=== PATIENT | male | born 1940 | race Caucasian/White ===

== ENCOUNTER → 2016-08-24 | Outpatient (CLI) | payer MEDICARE, OTHER ==
[~2016-08-24] MED LIST: ALBUAER3 IN; ATOR20TA PO; CAR3125T PO; CLOP75TA28 PO; ENA2.5T PO; FURO20TA3 PO; POT20T PO; TAMS0.4C36 PO; WARF5TAB71 PO
== END | disposition home or self-care (01) ==
LOC: HDHVI->DVH 09:05
PROVIDERS: ATTEND Internal Medicine Cardiovascular Disease
DX: I34.2 Nonrheumatic mitral (valve) stenosis (principal); I35.0 Nonrheumatic aortic (valve) stenosis; I34.0 Nonrheumatic mitral (valve) insufficiency; I07.1 Rheumatic tricuspid insufficiency; I37.1 Nonrheumatic pulmonary valve insufficiency
CPT/HCPCS: 93306

== ENCOUNTER → 2016-09-08 | Outpatient (CLI) | payer MEDICARE ==
[~2016-09-08] VITALS: Ht 177.8 cm; Wt 63.5 kg
[~2016-09-08] MED LIST changes: +ADENOSINE IV STA; +GIVE UN DILUTED IV STA
== END | disposition home or self-care (01) ==
LOC: HDHVI->DVH 09:38
PROVIDERS: ATTEND Internal Medicine Cardiovascular Disease
DX: Z01.810 Encounter for preprocedural cardiovascular examination (principal); R06.02 Shortness of breath; I25.2 Old myocardial infarction; I25.10 Atherosclerotic heart disease of native coronary artery without angina pectoris; I10 Essential (primary) hypertension; Z95.1 Presence of aortocoronary bypass graft
CPT/HCPCS: 78452; 93005; 96374; 96375; A9500; J0153

== ENCOUNTER → 2016-09-14 | Outpatient (CLI) | payer MEDICARE ==
[~2016-09-14] MED LIST changes: -ADENOSINE IV STA; -GIVE UN DILUTED IV STA
== END | disposition home or self-care (01) ==
LOC: CHF HDHVI 10:01
PROVIDERS: ATTEND Internal Medicine Cardiovascular Disease
DX: T46.0X6D Underdosing of cardiac-stimulant glycosides and drugs of similar action, subsequent encounter (principal)
CPT/HCPCS: 36415; 71020; 80162

== ENCOUNTER → 2016-09-28 | Outpatient (CLI) | payer MEDICARE ==
[2016-09-28 13:30] VITALS: BP 166/79
[2016-09-28 13:58] VITALS: BP 164/80
[2016-09-28 16:47] LABS: Albumin 3.3 g/dL (3.4-5.0); BUN/Creatinine Ratio 29.3; Bilirubin, Total 0.8 mg/dL (0.2-1.0); Calcium 8.8 mg/dL (8.5-10.1); Potassium 4.3 mmol/L (3.5-5.1); Total Protein 7.7 g/dL (6.4-8.2)
== END | disposition home or self-care (01) ==
LOC: Rad HDHVI 11:55
PROVIDERS: ATTEND Internal Medicine Cardiovascular Disease
DX: I10 Essential (primary) hypertension (principal)
CPT/HCPCS: 36415; 71020; 80053; G0463

== ENCOUNTER → 2017-07-19 | Outpatient (CLI) | payer MEDICARE | END | disposition home or self-care (01) | LOC: Rad HDHVI 11:14 | PROVIDERS: ATTEND Internal Medicine Cardiovascular Disease | DX: R91.8 Other nonspecific abnormal finding of lung field (principal); Z98.890 Other specified postprocedural states | CPT/HCPCS: 71046 ==

== ENCOUNTER → 2018-01-09 | Outpatient (CLI) | payer MEDICARE ==
[~2018-01-09] MED LIST changes: +MILRINONE 20MG/100ML 100 ML IV ONE; +MILRINONE 20MG/100ML 100 ML IV SCH
[2018-01-09 12:30] VITALS: BP 116/53
[2018-01-09 12:45] VITALS: BP 121/59
[2018-01-09 13:00] VITALS: BP 125/60
[2018-01-09 13:15] VITALS: BP 131/64
[2018-01-09 13:45] VITALS: BP 146/64
[2018-01-09 16:35] VITALS: BP 153/75
== END | disposition home or self-care (01) ==
LOC: CHF HDHVI 11:56
PROVIDERS: ATTEND Internal Medicine Cardiovascular Disease
DX: I11.0 Hypertensive heart disease with heart failure (principal); I50.23 Acute on chronic systolic (congestive) heart failure; I25.10 Atherosclerotic heart disease of native coronary artery without angina pectoris; E11.9 Type 2 diabetes mellitus without complications; J44.9 Chronic obstructive pulmonary disease, unspecified; I25.2 Old myocardial infarction; I48.91 Unspecified atrial fibrillation; Z79.899 Other long term (current) drug therapy; Z79.01 Long term (current) use of anticoagulants; Z87.891 Personal history of nicotine dependence; Z95.1 Presence of aortocoronary bypass graft
CPT/HCPCS: 96365; 96366; G0463; J2260

== ENCOUNTER → 2018-01-15 | Outpatient (CLI) | payer MEDICARE ==
[2018-01-15] VITALS (8 sets, daily range): BP systolic 122–167; BP diastolic 52–78
[~2018-01-15] MED LIST changes: -MILRINONE 20MG/100ML 100 ML IV SCH
[2018-01-15 12:22] LABS: Basophils # (auto) 0.1 uL; Basophils % (auto) 0.7 % (0.0-2.0); Eosinophils # (auto) 0.1 uL; Eosinophils % (auto) 0.8 % (0.0-7.0); Hematocrit 36.1 % (41.0-53.0); Lymphocytes % (auto) 12.7 % (10.0-50.0); Mean Corpuscular Hemoglobin 30.7 pg (28.0-32.0); Mean Corpuscular Hgb Conc. 33.3 g/dL (32.0-36.0); Mean Corpuscular Volume 92.3 fL (80.0-100.0); Monocytes # (auto) 0.5 uL; Neutrophils # (auto) 6.3 uL; Neutrophils % (auto) 79.8 % (37.0-80.0); Nucleated Red Blood Cells % 0.1 %; Platelet Count (auto) 289 10^3/uL (140-450); Red Blood Cells 3.91 10^6/uL (4.5-5.90); Red Cell Distribution Width 15.3 % (11.8-14.3)
[2018-01-15 12:33] LABS: BUN/Creatinine Ratio 23.6; Calcium 8.1 mg/dL (8.5-10.1)
== END | disposition home or self-care (01) ==
LOC: CHF HDHVI 08:32
PROVIDERS: ATTEND Internal Medicine Cardiovascular Disease
DX: I11.0 Hypertensive heart disease with heart failure (principal); I50.23 Acute on chronic systolic (congestive) heart failure; D64.9 Anemia, unspecified; I25.10 Atherosclerotic heart disease of native coronary artery without angina pectoris; I25.2 Old myocardial infarction; I48.91 Unspecified atrial fibrillation; N40.0 Benign prostatic hyperplasia without lower urinary tract symptoms; E11.9 Type 2 diabetes mellitus without complications; Z79.01 Long term (current) use of anticoagulants; Z79.899 Other long term (current) drug therapy; Z87.891 Personal history of nicotine dependence; Z95.1 Presence of aortocoronary bypass graft; Z95.810 Presence of automatic (implantable) cardiac defibrillator
CPT/HCPCS: 36415; 80048; 83880; 85025; 96365; 96366; G0463; J2260

== ENCOUNTER → 2018-01-22 | Outpatient (CLI) | payer MEDICARE ==
[2018-01-22] VITALS (8 sets, daily range): BP systolic 102–148; BP diastolic 40–72
[~2018-01-22] MED LIST changes: +MILRINONE 20MG/100ML 100 ML IV SCH
== END | disposition home or self-care (01) ==
LOC: CHF HDHVI 08:13
PROVIDERS: ATTEND Internal Medicine Cardiovascular Disease
DX: I11.0 Hypertensive heart disease with heart failure (principal); I50.23 Acute on chronic systolic (congestive) heart failure; R06.02 Shortness of breath; E11.9 Type 2 diabetes mellitus without complications; I48.91 Unspecified atrial fibrillation; I25.2 Old myocardial infarction; J44.9 Chronic obstructive pulmonary disease, unspecified; I25.10 Atherosclerotic heart disease of native coronary artery without angina pectoris; Z79.01 Long term (current) use of anticoagulants; Z79.899 Other long term (current) drug therapy; Z87.891 Personal history of nicotine dependence; Z95.1 Presence of aortocoronary bypass graft
CPT/HCPCS: 96365; 96366; G0463; J2260; J1642

== ENCOUNTER → 2018-01-26 | Outpatient (CLI) | payer MEDICARE ==
[2018-01-26] VITALS (8 sets, daily range): BP systolic 135–160; BP diastolic 64–77
[~2018-01-26] VITALS: Ht 30.5 cm; Wt 61.6 kg
[~2018-01-26] MED LIST changes: -MILRINONE 20MG/100ML 100 ML IV SCH
[2018-01-26 11:57] LABS: Basophils # (auto) 0 uL; Basophils % (auto) 0.8 % (0.0-2.0); Eosinophils # (auto) 0.1 uL; Hematocrit 34.9 % (41.0-53.0); Hemoglobin 11.6 g/dL (13.5-17.5); Mean Corpuscular Hemoglobin 30.4 pg (28.0-32.0); Mean Corpuscular Hgb Conc. 33.2 g/dL (32.0-36.0); Mean Corpuscular Volume 91.7 fL (80.0-100.0); Monocytes # (auto) 0.5 uL; Monocytes % (auto) 8.3 % (0.0-12.0); Neutrophils # (auto) 4.3 uL; Neutrophils % (auto) 71.9 % (37.0-80.0); Nucleated Red Blood Cells % 0.3 %; Platelet Count (auto) 244 10^3/uL (140-450); Red Blood Cells 3.81 10^6/uL (4.5-5.90); Red Cell Distribution Width 15.3 % (11.8-14.3)
[2018-01-26 12:08] LABS: Calcium 8.3 mg/dL (8.5-10.1); Potassium 3.8 mmol/L (3.5-5.1)
== END | disposition home or self-care (01) ==
LOC: CHF HDHVI 08:05
PROVIDERS: ATTEND Internal Medicine Cardiovascular Disease
DX: I11.0 Hypertensive heart disease with heart failure (principal); I50.23 Acute on chronic systolic (congestive) heart failure; D64.9 Anemia, unspecified; J44.9 Chronic obstructive pulmonary disease, unspecified; I25.10 Atherosclerotic heart disease of native coronary artery without angina pectoris; I25.2 Old myocardial infarction; E11.9 Type 2 diabetes mellitus without complications; I48.91 Unspecified atrial fibrillation; Z87.891 Personal history of nicotine dependence; Z79.01 Long term (current) use of anticoagulants; Z79.899 Other long term (current) drug therapy
CPT/HCPCS: 36415; 80048; 83880; 85025; 96365; 96366; G0463; J2260

== ENCOUNTER → 2018-01-29 | Outpatient (CLI) | payer MEDICARE ==
[2018-01-29] VITALS (10 sets, daily range): BP systolic 117–166; BP diastolic 48–82
[~2018-01-29] MED LIST changes: +CARVEDILOL 3.125 MG TAB ONE; +CARVEDILOL 3.125 MG TAB PO ONE; +MILRINONE 20MG/100ML 100 ML IV SCH
== END | disposition home or self-care (01) ==
LOC: CHF HDHVI 08:24
PROVIDERS: ATTEND Internal Medicine Cardiovascular Disease
DX: I11.0 Hypertensive heart disease with heart failure (principal); I50.23 Acute on chronic systolic (congestive) heart failure; I25.10 Atherosclerotic heart disease of native coronary artery without angina pectoris; E11.9 Type 2 diabetes mellitus without complications; J44.9 Chronic obstructive pulmonary disease, unspecified; I25.2 Old myocardial infarction; I48.91 Unspecified atrial fibrillation; Z79.899 Other long term (current) drug therapy; Z87.891 Personal history of nicotine dependence; Z79.01 Long term (current) use of anticoagulants; Z95.1 Presence of aortocoronary bypass graft
CPT/HCPCS: 96365; 96366; G0463; J2260

== ENCOUNTER → 2018-02-02 | Outpatient (CLI) | payer MEDICARE ==
[~2018-02-02] VITALS: Ht 30.5 cm; Wt 0.5 kg
[2018-02-02] VITALS (9 sets, daily range): BP systolic 124–151; BP diastolic 56–87
[~2018-02-02] MED LIST changes: -CARVEDILOL 3.125 MG TAB ONE; -CARVEDILOL 3.125 MG TAB PO ONE
[2018-02-02 12:18] LABS: Basophils # (auto) 0.1 uL; Basophils % (auto) 1.1 % (0.0-2.0); Eosinophils # (auto) 0.2 uL; Eosinophils % (auto) 4.2 % (0.0-7.0); Hematocrit 36.7 % (41.0-53.0); Lymphocytes % (auto) 16.6 % (10.0-50.0); Mean Corpuscular Hemoglobin 29.8 pg (28.0-32.0); Mean Corpuscular Hgb Conc. 32.6 g/dL (32.0-36.0); Mean Corpuscular Volume 91.6 fL (80.0-100.0); Monocytes # (auto) 0.5 uL; Monocytes % (auto) 9.3 % (0.0-12.0); Neutrophils % (auto) 68.8 % (37.0-80.0); Nucleated Red Blood Cells % 0.3 %; Platelet Count (auto) 222 10^3/uL (140-450); Red Blood Cells 4.01 10^6/uL (4.5-5.90); Red Cell Distribution Width 15.4 % (11.8-14.3); White Blood Cell 5.8 10^3/uL (4.4-10.8)
== END | disposition home or self-care (01) ==
LOC: CHF HDHVI 08:13
PROVIDERS: ATTEND Internal Medicine Cardiovascular Disease
DX: I11.0 Hypertensive heart disease with heart failure (principal); I50.23 Acute on chronic systolic (congestive) heart failure; D64.9 Anemia, unspecified; R94.4 Abnormal results of kidney function studies; E87.6 Hypokalemia; E11.9 Type 2 diabetes mellitus without complications; I25.10 Atherosclerotic heart disease of native coronary artery without angina pectoris; I48.91 Unspecified atrial fibrillation; J44.9 Chronic obstructive pulmonary disease, unspecified; I25.2 Old myocardial infarction; Z79.01 Long term (current) use of anticoagulants; Z87.891 Personal history of nicotine dependence; Z79.899 Other long term (current) drug therapy; Z95.1 Presence of aortocoronary bypass graft
CPT/HCPCS: 36415; 82565; 83880; 84132; 84520; 85025; 96365; 96366; G0463; J2260

== ENCOUNTER → 2018-02-05 | Outpatient (CLI) | payer MEDICARE ==
[2018-02-05] VITALS (11 sets, daily range): BP systolic 101–158; BP diastolic 50–79
[~2018-02-05] MED LIST changes: +CYANOCOBALAMIN (B-12) 1000 MCG/1 ML VIAL IM ONE; +CYANOCOBALAMIN (B-12) 1000 MCG/1 ML VIAL ONE
[2018-02-05 12:44] LABS: Basophils # (auto) 0 uL; Basophils % (auto) 0.8 % (0.0-2.0); Eosinophils # (auto) 0.1 uL; Eosinophils % (auto) 1.8 % (0.0-7.0); Hematocrit 32.8 % (41.0-53.0); Lymphocytes # (auto) 0.9 uL; Lymphocytes % (auto) 14.5 % (10.0-50.0); Mean Corpuscular Hemoglobin 30.7 pg (28.0-32.0); Mean Corpuscular Hgb Conc. 33.5 g/dL (32.0-36.0); Mean Corpuscular Volume 91.4 fL (80.0-100.0); Monocytes # (auto) 0.5 uL; Monocytes % (auto) 8.4 % (0.0-12.0); Neutrophils # (auto) 4.4 uL; Neutrophils % (auto) 74.5 % (37.0-80.0); Nucleated Red Blood Cells % 0.2 %; Platelet Count (auto) 244 10^3/uL (140-450); Red Blood Cells 3.59 10^6/uL (4.5-5.90); Red Cell Distribution Width 15.2 % (11.8-14.3); White Blood Cell 5.9 10^3/uL (4.4-10.8)
[2018-02-05 13:33] LABS: BUN/Creatinine Ratio 23.2; Calcium 8.4 mg/dL (8.5-10.1); Potassium 3.9 mmol/L (3.5-5.1)
== END | disposition home or self-care (01) ==
LOC: Rad HDHVI 08:06
PROVIDERS: ATTEND Internal Medicine Cardiovascular Disease
DX: I11.0 Hypertensive heart disease with heart failure (principal); I50.23 Acute on chronic systolic (congestive) heart failure; D51.9 Vitamin B12 deficiency anemia, unspecified; I70.0 Atherosclerosis of aorta; I07.1 Rheumatic tricuspid insufficiency; I34.0 Nonrheumatic mitral (valve) insufficiency; I25.10 Atherosclerotic heart disease of native coronary artery without angina pectoris; J44.9 Chronic obstructive pulmonary disease, unspecified; I25.2 Old myocardial infarction; I48.91 Unspecified atrial fibrillation; Z79.01 Long term (current) use of anticoagulants; Z87.891 Personal history of nicotine dependence; Z95.1 Presence of aortocoronary bypass graft
CPT/HCPCS: 36415; 80048; 83880; 85025; 93306; 96365; 96366; 96372; G0463; J2260; J3420

== ENCOUNTER → 2018-02-09 | Outpatient (CLI) | payer MEDICARE ==
[2018-02-09] VITALS (10 sets, daily range): BP systolic 116–150; BP diastolic 53–67
[~2018-02-09] MED LIST changes: -CYANOCOBALAMIN (B-12) 1000 MCG/1 ML VIAL IM ONE; -CYANOCOBALAMIN (B-12) 1000 MCG/1 ML VIAL ONE
[2018-02-09 13:40] LABS: Potassium 4.1 mmol/L (3.5-5.1)
== END | disposition home or self-care (01) ==
LOC: CHF HDHVI 07:57
PROVIDERS: ATTEND Internal Medicine Cardiovascular Disease
DX: I11.0 Hypertensive heart disease with heart failure (principal); I50.23 Acute on chronic systolic (congestive) heart failure; R53.83 Other fatigue; R94.4 Abnormal results of kidney function studies; E87.5 Hyperkalemia; E11.9 Type 2 diabetes mellitus without complications; I25.10 Atherosclerotic heart disease of native coronary artery without angina pectoris; I25.2 Old myocardial infarction; I48.91 Unspecified atrial fibrillation; J44.9 Chronic obstructive pulmonary disease, unspecified; Z79.01 Long term (current) use of anticoagulants; Z79.899 Other long term (current) drug therapy; Z87.891 Personal history of nicotine dependence; Z95.1 Presence of aortocoronary bypass graft
CPT/HCPCS: 36415; 82565; 83880; 84132; 84520; 96365; 96366; G0463; J2260

== ENCOUNTER → 2018-02-13 | Outpatient (CLI) | payer MEDICARE ==
[2018-02-13] VITALS (11 sets, daily range): BP systolic 135–150; BP diastolic 60–70
[~2018-02-13] MED LIST changes: +BACITRACIN TOP OINT 1 UD PKG TOP ONE
[2018-02-13 12:32] LABS: Basophils # (auto) 0.1 uL; Basophils % (auto) 0.9 % (0.0-2.0); Eosinophils # (auto) 0.2 uL; Eosinophils % (auto) 2.8 % (0.0-7.0); Hematocrit 33.7 % (41.0-53.0); Hemoglobin 11.1 g/dL (13.5-17.5); Lymphocytes # (auto) 0.9 uL; Lymphocytes % (auto) 16.2 % (10.0-50.0); Mean Corpuscular Hgb Conc. 32.8 g/dL (32.0-36.0); Mean Corpuscular Volume 91.5 fL (80.0-100.0); Monocytes # (auto) 0.4 uL; Monocytes % (auto) 7.8 % (0.0-12.0); Neutrophils # (auto) 4.1 uL; Neutrophils % (auto) 72.3 % (37.0-80.0); Nucleated Red Blood Cells % 0.3 %; Platelet Count (auto) 241 10^3/uL (140-450); Red Blood Cells 3.68 10^6/uL (4.5-5.90); Red Cell Distribution Width 15.5 % (11.8-14.3); White Blood Cell 5.7 10^3/uL (4.4-10.8)
[2018-02-13 12:43] LABS: BUN/Creatinine Ratio 21.8; Calcium 8.3 mg/dL (8.5-10.1); Magnesium 2.4 mg/dL (1.6-2.6)
== END | disposition home or self-care (01) ==
LOC: CHF HDHVI 08:15
PROVIDERS: ATTEND Internal Medicine Cardiovascular Disease
DX: I11.0 Hypertensive heart disease with heart failure (principal); I50.23 Acute on chronic systolic (congestive) heart failure; I25.10 Atherosclerotic heart disease of native coronary artery without angina pectoris; S51.012A Laceration without foreign body of left elbow, initial encounter; E83.40 Disorders of magnesium metabolism, unspecified; J44.9 Chronic obstructive pulmonary disease, unspecified; I25.2 Old myocardial infarction; E11.9 Type 2 diabetes mellitus without complications; I48.91 Unspecified atrial fibrillation; Z79.01 Long term (current) use of anticoagulants; Z79.899 Other long term (current) drug therapy; Z87.891 Personal history of nicotine dependence; Z95.1 Presence of aortocoronary bypass graft; Z95.810 Presence of automatic (implantable) cardiac defibrillator; X58.XXXA Exposure to other specified factors, initial encounter; Y93.89 Activity, other specified
CPT/HCPCS: 36415; 80048; 83735; 83880; 85025; 96365; 96366; G0463; J2260

== ENCOUNTER → 2018-02-20 | Outpatient (CLI) | payer MEDICARE ==
[2018-02-20] VITALS (11 sets, daily range): BP systolic 112–151; BP diastolic 51–76
[~2018-02-20] MED LIST changes: -BACITRACIN TOP OINT 1 UD PKG TOP ONE
== END | disposition home or self-care (01) ==
LOC: CHF HDHVI 08:11
PROVIDERS: ATTEND Internal Medicine Cardiovascular Disease
DX: I11.0 Hypertensive heart disease with heart failure (principal); I50.23 Acute on chronic systolic (congestive) heart failure; I48.91 Unspecified atrial fibrillation; E11.9 Type 2 diabetes mellitus without complications; I25.10 Atherosclerotic heart disease of native coronary artery without angina pectoris; J44.9 Chronic obstructive pulmonary disease, unspecified; I25.2 Old myocardial infarction; Z79.01 Long term (current) use of anticoagulants; Z79.899 Other long term (current) drug therapy; Z87.891 Personal history of nicotine dependence; Z95.1 Presence of aortocoronary bypass graft; Z95.810 Presence of automatic (implantable) cardiac defibrillator
CPT/HCPCS: 96365; 96366; G0463; J2260

== ENCOUNTER → 2018-02-23 | Outpatient (CLI) | payer MEDICARE ==
[2018-02-23] VITALS (7 sets, daily range): BP systolic 101–141; BP diastolic 49–68
== END | disposition home or self-care (01) ==
LOC: CHF HDHVI 08:05
PROVIDERS: ATTEND Internal Medicine Cardiovascular Disease
DX: I11.0 Hypertensive heart disease with heart failure (principal); I50.23 Acute on chronic systolic (congestive) heart failure; I25.10 Atherosclerotic heart disease of native coronary artery without angina pectoris; J44.9 Chronic obstructive pulmonary disease, unspecified; I25.2 Old myocardial infarction; E11.9 Type 2 diabetes mellitus without complications; I48.91 Unspecified atrial fibrillation; D51.9 Vitamin B12 deficiency anemia, unspecified
CPT/HCPCS: 96365; 96366; G0463; J2260

== ENCOUNTER → 2018-02-26 | Outpatient (CLI) | payer MEDICARE ==
[2018-02-23 12:00] VITALS: BP 140/60
[2018-02-26] VITALS (10 sets, daily range): BP systolic 103–137; BP diastolic 42–68
== END | disposition home or self-care (01) ==
LOC: CHF HDHVI 07:53
PROVIDERS: ATTEND Internal Medicine Cardiovascular Disease
DX: I11.0 Hypertensive heart disease with heart failure (principal); I50.23 Acute on chronic systolic (congestive) heart failure; I25.2 Old myocardial infarction; I48.91 Unspecified atrial fibrillation; D51.9 Vitamin B12 deficiency anemia, unspecified
CPT/HCPCS: 96365; 96366; G0463; J2260

== ENCOUNTER → 2018-03-02 | Outpatient (CLI) | payer MEDICARE ==
[2018-03-02] VITALS (11 sets, daily range): BP systolic 124–141; BP diastolic 51–69
[~2018-03-02] VITALS: Ht 30.5 cm; Wt 62.7 kg
== END | disposition home or self-care (01) ==
LOC: CHF HDHVI 07:54
PROVIDERS: ATTEND Internal Medicine Cardiovascular Disease
DX: I11.0 Hypertensive heart disease with heart failure (principal); I50.23 Acute on chronic systolic (congestive) heart failure; I48.91 Unspecified atrial fibrillation; D51.9 Vitamin B12 deficiency anemia, unspecified; I25.10 Atherosclerotic heart disease of native coronary artery without angina pectoris; I25.2 Old myocardial infarction; J44.9 Chronic obstructive pulmonary disease, unspecified; Z95.1 Presence of aortocoronary bypass graft; E11.9 Type 2 diabetes mellitus without complications; Z95.810 Presence of automatic (implantable) cardiac defibrillator; Z79.01 Long term (current) use of anticoagulants; Z79.899 Other long term (current) drug therapy; Z87.891 Personal history of nicotine dependence
CPT/HCPCS: 96365; 96366; G0463; J2260

== ENCOUNTER → 2018-03-05 | Outpatient (CLI) | payer MEDICARE ==
[2018-03-05] VITALS (10 sets, daily range): BP systolic 131–156; BP diastolic 64–72
== END | disposition home or self-care (01) ==
LOC: CHF HDHVI 08:14
PROVIDERS: ATTEND Internal Medicine Cardiovascular Disease
DX: I11.0 Hypertensive heart disease with heart failure (principal); I50.23 Acute on chronic systolic (congestive) heart failure; I25.10 Atherosclerotic heart disease of native coronary artery without angina pectoris; J44.9 Chronic obstructive pulmonary disease, unspecified; I25.2 Old myocardial infarction; Z87.891 Personal history of nicotine dependence; E11.9 Type 2 diabetes mellitus without complications; I48.91 Unspecified atrial fibrillation; D51.9 Vitamin B12 deficiency anemia, unspecified; E87.5 Hyperkalemia; R53.83 Other fatigue; N39.0 Urinary tract infection, site not specified
CPT/HCPCS: 96365; 96366; G0463; J2260

== ENCOUNTER → 2018-03-09 | Outpatient (CLI) | payer MEDICARE ==
[2018-03-09] VITALS (12 sets, daily range): BP systolic 120–143; BP diastolic 50–68
== END | disposition home or self-care (01) ==
LOC: CHF HDHVI 07:59
PROVIDERS: ATTEND Internal Medicine Cardiovascular Disease
DX: I11.0 Hypertensive heart disease with heart failure (principal); I50.23 Acute on chronic systolic (congestive) heart failure; I25.10 Atherosclerotic heart disease of native coronary artery without angina pectoris; J44.9 Chronic obstructive pulmonary disease, unspecified; I25.2 Old myocardial infarction; E11.9 Type 2 diabetes mellitus without complications; I48.91 Unspecified atrial fibrillation; Z87.891 Personal history of nicotine dependence; Z79.01 Long term (current) use of anticoagulants; Z79.899 Other long term (current) drug therapy; Z95.1 Presence of aortocoronary bypass graft; Z95.810 Presence of automatic (implantable) cardiac defibrillator
CPT/HCPCS: 96365; 96366; G0463; J2260

== ENCOUNTER → 2018-03-12 | Outpatient (CLI) | payer MEDICARE ==
[2018-03-12] VITALS (11 sets, daily range): BP systolic 96–141; BP diastolic 42–70
[~2018-03-12] MED LIST changes: -MILRINONE 20MG/100ML 100 ML IV SCH
[2018-03-12 13:12] LABS: Basophils # (auto) 0.1 uL; Basophils % (auto) 1.5 % (0.0-2.0); Eosinophils # (auto) 0.2 uL; Eosinophils % (auto) 4.7 % (0.0-7.0); Hematocrit 34.9 % (41.0-53.0); Hemoglobin 11.5 g/dL (13.5-17.5); Lymphocytes # (auto) 0.9 uL; Lymphocytes % (auto) 17.4 % (10.0-50.0); Mean Corpuscular Hemoglobin 30.6 pg (28.0-32.0); Mean Corpuscular Hgb Conc. 32.9 g/dL (32.0-36.0); Mean Corpuscular Volume 93.1 fL (80.0-100.0); Monocytes # (auto) 0.4 uL; Monocytes % (auto) 7.4 % (0.0-12.0); Neutrophils # (auto) 3.5 uL; Nucleated Red Blood Cells % 0.1 %; Platelet Count (auto) 307 10^3/uL (140-450); Red Blood Cells 3.75 10^6/uL (4.5-5.90); Red Cell Distribution Width 15.4 % (11.8-14.3); White Blood Cell 5.1 10^3/uL (4.4-10.8)
[2018-03-12 13:59] LABS: Albumin 3.2 g/dL (3.4-5.0); BUN/Creatinine Ratio 19.8; Bilirubin, Total 1.1 mg/dL (0.2-1.0); Calcium 8.5 mg/dL (8.5-10.1); Magnesium 2.6 mg/dL (1.6-2.6); Potassium 4.1 mmol/L (3.5-5.1); Total Protein 7.7 g/dL (6.4-8.2)
[2018-03-12] MEDS: MILRINONE 20MG/100ML 100 ML IV SCH ×2 (14:16→17:50)
== END | disposition home or self-care (01) ==
LOC: CHF HDHVI 08:11
PROVIDERS: ATTEND Internal Medicine Cardiovascular Disease
DX: I11.0 Hypertensive heart disease with heart failure (principal); I50.23 Acute on chronic systolic (congestive) heart failure; E11.9 Type 2 diabetes mellitus without complications; J44.9 Chronic obstructive pulmonary disease, unspecified; E83.110 Hereditary hemochromatosis; I25.10 Atherosclerotic heart disease of native coronary artery without angina pectoris; I25.2 Old myocardial infarction; I48.91 Unspecified atrial fibrillation; Z79.01 Long term (current) use of anticoagulants; Z79.899 Other long term (current) drug therapy; Z87.891 Personal history of nicotine dependence; Z95.1 Presence of aortocoronary bypass graft; Z95.810 Presence of automatic (implantable) cardiac defibrillator
CPT/HCPCS: 36415; 80053; 80061; 82306; 82607; 83036; 83735; 83880; 84443; 85025; 96365; 96366; G0463; J2260

== ENCOUNTER → 2018-03-16 | Outpatient (CLI) | payer MEDICARE ==
[2018-03-16] VITALS (7 sets, daily range): BP systolic 105–161; BP diastolic 48–79
[~2018-03-16] MED LIST changes: +CYANOCOBALAMIN (B-12) 1000 MCG/1 ML VIAL IM ONE; +CYANOCOBALAMIN (B-12) 1000 MCG/1 ML VIAL ONE; +FUROSEMIDE 40 MG/4 ML VIAL IV ONE; +FUROSEMIDE 40 MG/4 ML VIAL ONE; +MILRINONE 20MG/100ML 100 ML IV SCH; +POTASSIUM CHL 10 Meq TABLET PO ONE
== END | disposition home or self-care (01) ==
LOC: CHF HDHVI 07:55
PROVIDERS: ATTEND Internal Medicine Cardiovascular Disease
DX: I11.0 Hypertensive heart disease with heart failure (principal); I50.23 Acute on chronic systolic (congestive) heart failure; I25.10 Atherosclerotic heart disease of native coronary artery without angina pectoris; J44.9 Chronic obstructive pulmonary disease, unspecified; R06.00 Dyspnea, unspecified; E11.9 Type 2 diabetes mellitus without complications; I25.2 Old myocardial infarction; N39.0 Urinary tract infection, site not specified; I48.91 Unspecified atrial fibrillation; Z95.1 Presence of aortocoronary bypass graft; Z87.891 Personal history of nicotine dependence
CPT/HCPCS: 96365; 96366; 96372; 96375; G0463; J1940; J2260; J3420

== ENCOUNTER → 2018-03-19 | Outpatient (CLI) | payer MEDICARE ==
[2018-03-19] VITALS (8 sets, daily range): BP systolic 120–153; BP diastolic 50–70
[~2018-03-19] MED LIST changes: -CYANOCOBALAMIN (B-12) 1000 MCG/1 ML VIAL IM ONE; -CYANOCOBALAMIN (B-12) 1000 MCG/1 ML VIAL ONE; -FUROSEMIDE 40 MG/4 ML VIAL IV ONE; -FUROSEMIDE 40 MG/4 ML VIAL ONE; -POTASSIUM CHL 10 Meq TABLET PO ONE
[2018-03-19 12:05] LABS: Basophils # (auto) 0.1 uL; Basophils % (auto) 1.8 % (0.0-2.0); Eosinophils # (auto) 0.3 uL; Hematocrit 37.3 % (41.0-53.0); Hemoglobin 11.9 g/dL (13.5-17.5); Lymphocytes % (auto) 18.6 % (10.0-50.0); Mean Corpuscular Hemoglobin 29.6 pg (28.0-32.0); Mean Corpuscular Hgb Conc. 31.9 g/dL (32.0-36.0); Mean Corpuscular Volume 92.8 fL (80.0-100.0); Monocytes # (auto) 0.4 uL; Monocytes % (auto) 6.5 % (0.0-12.0); Neutrophils # (auto) 3.7 uL; Neutrophils % (auto) 67.1 % (37.0-80.0); Nucleated Red Blood Cells % 0.1 %; Platelet Count (auto) 292 10^3/uL (140-450); Red Blood Cells 4.02 10^6/uL (4.5-5.90); Red Cell Distribution Width 15.6 % (11.8-14.3); White Blood Cell 5.5 10^3/uL (4.4-10.8)
== END | disposition home or self-care (01) ==
LOC: CHF HDHVI 08:48
PROVIDERS: ATTEND Internal Medicine Cardiovascular Disease
DX: I25.10 Atherosclerotic heart disease of native coronary artery without angina pectoris (principal); I11.0 Hypertensive heart disease with heart failure; I50.23 Acute on chronic systolic (congestive) heart failure; J44.9 Chronic obstructive pulmonary disease, unspecified; R94.4 Abnormal results of kidney function studies; E87.6 Hypokalemia; D51.9 Vitamin B12 deficiency anemia, unspecified; I25.2 Old myocardial infarction; I48.91 Unspecified atrial fibrillation; E11.9 Type 2 diabetes mellitus without complications; Z79.01 Long term (current) use of anticoagulants; Z79.899 Other long term (current) drug therapy; Z87.891 Personal history of nicotine dependence; Z95.810 Presence of automatic (implantable) cardiac defibrillator; Z95.1 Presence of aortocoronary bypass graft
CPT/HCPCS: 36415; 82565; 83880; 84132; 84520; 85025; 96365; 96366; G0463; J2260

== ENCOUNTER → 2018-03-23 | Outpatient (CLI) | payer MEDICARE ==
[~2018-03-23] VITALS: Ht 30.5 cm; Wt 0.5 kg
[2018-03-23] VITALS (12 sets, daily range): BP systolic 115–138; BP diastolic 48–67
== END | disposition home or self-care (01) ==
LOC: CHF HDHVI 08:29
PROVIDERS: ATTEND Internal Medicine Cardiovascular Disease
DX: I11.0 Hypertensive heart disease with heart failure (principal); I50.23 Acute on chronic systolic (congestive) heart failure; I25.10 Atherosclerotic heart disease of native coronary artery without angina pectoris; J44.9 Chronic obstructive pulmonary disease, unspecified; D64.9 Anemia, unspecified; I25.2 Old myocardial infarction; E11.9 Type 2 diabetes mellitus without complications; I48.91 Unspecified atrial fibrillation; N39.0 Urinary tract infection, site not specified; Z87.891 Personal history of nicotine dependence
CPT/HCPCS: 96365; 96366; G0463; J2260

== ENCOUNTER → 2018-03-26 | Outpatient (CLI) | payer MEDICARE ==
[~2018-03-26] MED LIST changes: -MILRINONE 20MG/100ML 100 ML IV SCH
[2018-03-26 12:30] VITALS: BP 135/72
[2018-03-26 12:46] LABS: Basophils # (auto) 0.1 uL; Basophils % (auto) 1.3 % (0.0-2.0); Eosinophils # (auto) 0.2 uL; Eosinophils % (auto) 3.4 % (0.0-7.0); Hematocrit 34.3 % (41.0-53.0); Hemoglobin 11.3 g/dL (13.5-17.5); Lymphocytes # (auto) 0.9 uL; Lymphocytes % (auto) 14.8 % (10.0-50.0); Mean Corpuscular Hgb Conc. 33.1 g/dL (32.0-36.0); Mean Corpuscular Volume 93.6 fL (80.0-100.0); Monocytes # (auto) 0.8 uL; Monocytes % (auto) 12.4 % (0.0-12.0); Neutrophils # (auto) 4.3 uL; Neutrophils % (auto) 68.1 % (37.0-80.0); Nucleated Red Blood Cells % 0.2 %; Platelet Count (auto) 226 10^3/uL (140-450); Red Blood Cells 3.66 10^6/uL (4.5-5.90); Red Cell Distribution Width 15.3 % (11.8-14.3); White Blood Cell 6.3 10^3/uL (4.4-10.8)
[2018-03-26] MEDS: MILRINONE 20MG/100ML 100 ML IV SCH ×2 (13:55→16:43)
[2018-03-26 14:06] LABS: BUN/Creatinine Ratio 21.3; Calcium 7.9 mg/dL (8.5-10.1)
== END | disposition home or self-care (01) ==
LOC: CHF HDHVI 08:11
PROVIDERS: ATTEND Internal Medicine Cardiovascular Disease
DX: I11.0 Hypertensive heart disease with heart failure (principal); I50.23 Acute on chronic systolic (congestive) heart failure; D64.9 Anemia, unspecified; I25.10 Atherosclerotic heart disease of native coronary artery without angina pectoris; J44.9 Chronic obstructive pulmonary disease, unspecified; I25.2 Old myocardial infarction; I48.91 Unspecified atrial fibrillation; N39.0 Urinary tract infection, site not specified; E11.9 Type 2 diabetes mellitus without complications; Z87.891 Personal history of nicotine dependence; Z79.899 Other long term (current) drug therapy; Z95.810 Presence of automatic (implantable) cardiac defibrillator
CPT/HCPCS: 36415; 80048; 83880; 85025; 96365; 96366; G0463; J2260

== ENCOUNTER → 2018-03-30 | Outpatient (CLI) | payer MEDICARE ==
[2018-03-30] VITALS (9 sets, daily range): BP systolic 98–143; BP diastolic 51–66
[~2018-03-30] MED LIST changes: +MILRINONE 20MG/100ML 100 ML IV SCH
[2018-03-30 12:32] LABS: Potassium 4.2 mmol/L (3.5-5.1)
== END | disposition home or self-care (01) ==
LOC: CHF HDHVI 07:55
PROVIDERS: ATTEND Internal Medicine Cardiovascular Disease
DX: I50.9 Heart failure, unspecified (principal); I11.0 Hypertensive heart disease with heart failure; I50.23 Acute on chronic systolic (congestive) heart failure; D64.9 Anemia, unspecified; R94.4 Abnormal results of kidney function studies; E87.6 Hypokalemia; J44.9 Chronic obstructive pulmonary disease, unspecified; E11.9 Type 2 diabetes mellitus without complications; I25.2 Old myocardial infarction; Z87.891 Personal history of nicotine dependence; Z79.01 Long term (current) use of anticoagulants; Z95.810 Presence of automatic (implantable) cardiac defibrillator; Z95.1 Presence of aortocoronary bypass graft; Z79.899 Other long term (current) drug therapy
CPT/HCPCS: 36415; 82565; 83880; 84132; 84520; 96365; 96366; G0463; J2260

== ENCOUNTER → 2018-04-02 | Outpatient (CLI) | payer MEDICARE ==
[2018-04-02] VITALS (8 sets, daily range): BP systolic 124–133; BP diastolic 41–65
[~2018-04-02] VITALS: Ht 30.5 cm; Wt 64.9 kg
[~2018-04-02] MED LIST changes: -MILRINONE 20MG/100ML 100 ML IV SCH
[2018-04-02] MEDS: MILRINONE 20MG/100ML 100 ML IV SCH ×2 (15:11→17:41)
== END | disposition home or self-care (01) ==
LOC: CHF HDHVI 07:57
PROVIDERS: ATTEND Internal Medicine Cardiovascular Disease
DX: I50.9 Heart failure, unspecified (principal); I11.0 Hypertensive heart disease with heart failure; I50.23 Acute on chronic systolic (congestive) heart failure; D64.9 Anemia, unspecified; I48.91 Unspecified atrial fibrillation; J44.9 Chronic obstructive pulmonary disease, unspecified; E11.9 Type 2 diabetes mellitus without complications; Z79.01 Long term (current) use of anticoagulants; Z79.899 Other long term (current) drug therapy; Z95.810 Presence of automatic (implantable) cardiac defibrillator; Z95.1 Presence of aortocoronary bypass graft
CPT/HCPCS: 83880; 96365; 96366; G0463; J2260

== ENCOUNTER → 2018-04-06 | Outpatient (CLI) | payer MEDICARE ==
[2018-04-06] VITALS (8 sets, daily range): BP systolic 121–141; BP diastolic 57–76
[~2018-04-06] VITALS: Ht 30.5 cm; Wt 65.9 kg
[~2018-04-06] MED LIST changes: +MILRINONE 20MG/100ML 100 ML IV SCH
== END | disposition home or self-care (01) ==
LOC: CHF HDHVI 08:50
PROVIDERS: ATTEND Internal Medicine Cardiovascular Disease
DX: I11.0 Hypertensive heart disease with heart failure (principal); I50.23 Acute on chronic systolic (congestive) heart failure; J44.9 Chronic obstructive pulmonary disease, unspecified; D51.3 Other dietary vitamin B12 deficiency anemia; E11.9 Type 2 diabetes mellitus without complications; I25.10 Atherosclerotic heart disease of native coronary artery without angina pectoris; E87.6 Hypokalemia; E83.40 Disorders of magnesium metabolism, unspecified; I48.91 Unspecified atrial fibrillation; I70.0 Atherosclerosis of aorta; N39.0 Urinary tract infection, site not specified; I25.2 Old myocardial infarction; Z87.891 Personal history of nicotine dependence; Z79.01 Long term (current) use of anticoagulants; Z95.810 Presence of automatic (implantable) cardiac defibrillator
CPT/HCPCS: 96365; 96366; G0463; J2260

== ENCOUNTER → 2018-04-09 | Outpatient (CLI) | payer MEDICARE ==
[2018-04-09] VITALS (8 sets, daily range): BP systolic 135–147; BP diastolic 59–74
[~2018-04-09] MED LIST changes: -MILRINONE 20MG/100ML 100 ML IV SCH
== END | disposition home or self-care (01) ==
LOC: CHF HDHVI 08:18
PROVIDERS: ATTEND Internal Medicine Cardiovascular Disease
DX: I11.0 Hypertensive heart disease with heart failure (principal); I50.23 Acute on chronic systolic (congestive) heart failure; I25.10 Atherosclerotic heart disease of native coronary artery without angina pectoris; I48.91 Unspecified atrial fibrillation; D51.3 Other dietary vitamin B12 deficiency anemia; I70.0 Atherosclerosis of aorta; J44.9 Chronic obstructive pulmonary disease, unspecified; E11.9 Type 2 diabetes mellitus without complications; Z87.891 Personal history of nicotine dependence; Z95.810 Presence of automatic (implantable) cardiac defibrillator; Z79.899 Other long term (current) drug therapy
CPT/HCPCS: 96365; 96366; G0463; J2260

== ENCOUNTER → 2018-04-13 | Outpatient (CLI) | payer MEDICARE ==
[2018-04-13] VITALS (10 sets, daily range): BP systolic 120–142; BP diastolic 53–77
[~2018-04-13] MED LIST changes: +BACITRACIN TOP OINT 1 UD PKG TOP ONE; +MILRINONE 20MG/100ML 100 ML IV SCH
[2018-04-13 12:18] LABS: Basophils # (auto) 0.1 uL; Basophils % (auto) 1.3 % (0.0-2.0); Eosinophils # (auto) 0.3 uL; Eosinophils % (auto) 4.7 % (0.0-7.0); Hematocrit 35.3 % (41.0-53.0); Hemoglobin 11.5 g/dL (13.5-17.5); Mean Corpuscular Hemoglobin 30.6 pg (28.0-32.0); Mean Corpuscular Hgb Conc. 32.6 g/dL (32.0-36.0); Mean Corpuscular Volume 93.8 fL (80.0-100.0); Monocytes # (auto) 0.5 uL; Monocytes % (auto) 9.1 % (0.0-12.0); Neutrophils # (auto) 3.8 uL; Neutrophils % (auto) 67.9 % (37.0-80.0); Nucleated Red Blood Cells % 0.2 %; Platelet Count (auto) 288 10^3/uL (140-450); Red Blood Cells 3.76 10^6/uL (4.5-5.90); Red Cell Distribution Width 15.3 % (11.8-14.3); White Blood Cell 5.6 10^3/uL (4.4-10.8)
[2018-04-13 12:29] LABS: Calcium 8.7 mg/dL (8.5-10.1); Potassium 4.1 mmol/L (3.5-5.1)
[2018-04-13 12:32] LABS: BUN/Creatinine Ratio 16.3
== END | disposition home or self-care (01) ==
LOC: CHF HDHVI 08:15
PROVIDERS: ATTEND Internal Medicine Cardiovascular Disease
DX: I11.0 Hypertensive heart disease with heart failure (principal); I48.91 Unspecified atrial fibrillation; I50.23 Acute on chronic systolic (congestive) heart failure; D64.9 Anemia, unspecified; I25.10 Atherosclerotic heart disease of native coronary artery without angina pectoris; J44.9 Chronic obstructive pulmonary disease, unspecified; E11.9 Type 2 diabetes mellitus without complications; I25.2 Old myocardial infarction; E87.6 Hypokalemia; N39.0 Urinary tract infection, site not specified; E87.5 Hyperkalemia; I70.0 Atherosclerosis of aorta; Z95.810 Presence of automatic (implantable) cardiac defibrillator; Z79.899 Other long term (current) drug therapy; Z87.891 Personal history of nicotine dependence; Z79.01 Long term (current) use of anticoagulants; Z95.1 Presence of aortocoronary bypass graft
CPT/HCPCS: 36415; 80048; 80162; 83880; 85025; 94618; 96365; 96366; G0463; J2260

== ENCOUNTER → 2018-04-16 | Outpatient (CLI) | payer MEDICARE ==
[2018-04-16] VITALS (7 sets, daily range): BP systolic 126–138; BP diastolic 55–63
[~2018-04-16] MED LIST changes: +CYANOCOBALAMIN (B-12) 1000 MCG/1 ML VIAL IM ONE; +CYANOCOBALAMIN (B-12) 1000 MCG/1 ML VIAL ONE; -MILRINONE 20MG/100ML 100 ML IV SCH
[2018-04-16 12:21] LABS: Potassium 4.1 mmol/L (3.5-5.1)
[2018-04-16 12:27] LABS: Basophils # (auto) 0.1 uL; Basophils % (auto) 1.6 % (0.0-2.0); Eosinophils # (auto) 0.2 uL; Eosinophils % (auto) 4.8 % (0.0-7.0); Hematocrit 33.9 % (41.0-53.0); Hemoglobin 11.1 g/dL (13.5-17.5); Lymphocytes # (auto) 0.7 uL; Lymphocytes % (auto) 14.1 % (10.0-50.0); Mean Corpuscular Hemoglobin 30.4 pg (28.0-32.0); Mean Corpuscular Hgb Conc. 32.7 g/dL (32.0-36.0); Mean Corpuscular Volume 92.9 fL (80.0-100.0); Monocytes # (auto) 0.3 uL; Monocytes % (auto) 6.2 % (0.0-12.0); Neutrophils # (auto) 3.7 uL; Neutrophils % (auto) 73.3 % (37.0-80.0); Nucleated Red Blood Cells % 0.1 %; Platelet Count (auto) 253 10^3/uL (140-450); Red Blood Cells 3.65 10^6/uL (4.5-5.90); Red Cell Distribution Width 15.3 % (11.8-14.3); White Blood Cell 5.1 10^3/uL (4.4-10.8)
[2018-04-16 12:28] LABS: BUN/Creatinine Ratio 17.2; Calcium 9.1 mg/dL (8.5-10.1); Magnesium 2.4 mg/dL (1.6-2.6)
== END | disposition home or self-care (01) ==
LOC: CHF HDHVI 07:58
PROVIDERS: ATTEND Internal Medicine Cardiovascular Disease
DX: I11.0 Hypertensive heart disease with heart failure (principal); I50.23 Acute on chronic systolic (congestive) heart failure; D51.3 Other dietary vitamin B12 deficiency anemia; E83.40 Disorders of magnesium metabolism, unspecified; E87.6 Hypokalemia; R94.4 Abnormal results of kidney function studies; I25.10 Atherosclerotic heart disease of native coronary artery without angina pectoris; I70.0 Atherosclerosis of aorta; J44.9 Chronic obstructive pulmonary disease, unspecified; E87.5 Hyperkalemia; I25.2 Old myocardial infarction; E11.9 Type 2 diabetes mellitus without complications; I48.91 Unspecified atrial fibrillation; E83.110 Hereditary hemochromatosis; Z79.01 Long term (current) use of anticoagulants; Z95.810 Presence of automatic (implantable) cardiac defibrillator; Z95.1 Presence of aortocoronary bypass graft; Z79.899 Other long term (current) drug therapy; Z87.891 Personal history of nicotine dependence
CPT/HCPCS: 36415; 80048; 83735; 83880; 85025; 96365; 96366; 96372; G0463; J2260; J3420

== ENCOUNTER → 2018-04-20 | Outpatient (CLI) | payer MEDICARE ==
[2018-04-20] VITALS (8 sets, daily range): BP systolic 132–153; BP diastolic 56–81
[~2018-04-20] MED LIST changes: -BACITRACIN TOP OINT 1 UD PKG TOP ONE; -CYANOCOBALAMIN (B-12) 1000 MCG/1 ML VIAL IM ONE; -CYANOCOBALAMIN (B-12) 1000 MCG/1 ML VIAL ONE; +FUROSEMIDE 40 MG/4 ML VIAL ONE; +METOLAZONE 5 MG TAB ONE; +METOLAZONE 5 MG TAB PO ONE; +MILRINONE 20MG/100ML 100 ML IV SCH; +POTASSIUM CHL 10 Meq TABLET PO ONE; +POTASSIUM CHL 20 Meq TABLET PO ONE
== END | disposition home or self-care (01) ==
LOC: CHF HDHVI 07:56
PROVIDERS: ATTEND Internal Medicine Cardiovascular Disease
DX: I11.0 Hypertensive heart disease with heart failure (principal); I50.23 Acute on chronic systolic (congestive) heart failure; E11.9 Type 2 diabetes mellitus without complications; J44.9 Chronic obstructive pulmonary disease, unspecified; I25.10 Atherosclerotic heart disease of native coronary artery without angina pectoris; I25.2 Old myocardial infarction; I27.21 Secondary pulmonary arterial hypertension; I48.91 Unspecified atrial fibrillation; I70.0 Atherosclerosis of aorta; E83.110 Hereditary hemochromatosis; Z95.810 Presence of automatic (implantable) cardiac defibrillator; Z95.1 Presence of aortocoronary bypass graft; Z79.01 Long term (current) use of anticoagulants; Z87.891 Personal history of nicotine dependence
CPT/HCPCS: 96365; 96366; G0463; J1940; J2260

== ENCOUNTER → 2018-04-23 | Outpatient (CLI) | payer MEDICARE ==
[2018-04-23] VITALS (11 sets, daily range): BP systolic 95–132; BP diastolic 49–68
[~2018-04-23] MED LIST changes: -FUROSEMIDE 40 MG/4 ML VIAL ONE; -METOLAZONE 5 MG TAB ONE; -METOLAZONE 5 MG TAB PO ONE; -POTASSIUM CHL 10 Meq TABLET PO ONE; -POTASSIUM CHL 20 Meq TABLET PO ONE
[2018-04-23 12:35] LABS: Potassium 4.1 mmol/L (3.5-5.1)
== END | disposition home or self-care (01) ==
LOC: CHF HDHVI 07:49
PROVIDERS: ATTEND Internal Medicine Cardiovascular Disease
DX: E87.6 Hypokalemia (principal); I11.0 Hypertensive heart disease with heart failure; I50.23 Acute on chronic systolic (congestive) heart failure; R94.4 Abnormal results of kidney function studies; I25.10 Atherosclerotic heart disease of native coronary artery without angina pectoris; I70.0 Atherosclerosis of aorta; J44.9 Chronic obstructive pulmonary disease, unspecified; E83.110 Hereditary hemochromatosis; I25.2 Old myocardial infarction; Z95.810 Presence of automatic (implantable) cardiac defibrillator; E11.9 Type 2 diabetes mellitus without complications; I48.91 Unspecified atrial fibrillation; E83.40 Disorders of magnesium metabolism, unspecified; D51.3 Other dietary vitamin B12 deficiency anemia; Z79.899 Other long term (current) drug therapy; Z79.01 Long term (current) use of anticoagulants; Z87.891 Personal history of nicotine dependence; Z95.1 Presence of aortocoronary bypass graft
CPT/HCPCS: 36415; 82565; 83880; 84132; 84520; 93701; 96365; 96366; G0463; J2260

== ENCOUNTER → 2018-04-27 | Outpatient (CLI) | payer MEDICARE ==
[2018-04-27] VITALS (7 sets, daily range): BP systolic 90–110; BP diastolic 32–50
[~2018-04-27] VITALS: Ht 30.5 cm; Wt 61.2 kg
== END | disposition home or self-care (01) ==
LOC: CHF HDHVI 08:08
PROVIDERS: ATTEND Internal Medicine Cardiovascular Disease
DX: I11.0 Hypertensive heart disease with heart failure (principal); I50.23 Acute on chronic systolic (congestive) heart failure; E87.6 Hypokalemia; R94.4 Abnormal results of kidney function studies; J44.9 Chronic obstructive pulmonary disease, unspecified; I25.10 Atherosclerotic heart disease of native coronary artery without angina pectoris; D51.3 Other dietary vitamin B12 deficiency anemia; I70.0 Atherosclerosis of aorta; I25.2 Old myocardial infarction; E83.110 Hereditary hemochromatosis; E11.9 Type 2 diabetes mellitus without complications; I48.91 Unspecified atrial fibrillation; Z87.440 Personal history of urinary (tract) infections; Z79.01 Long term (current) use of anticoagulants; Z79.899 Other long term (current) drug therapy; Z87.891 Personal history of nicotine dependence; Z95.810 Presence of automatic (implantable) cardiac defibrillator; Z95.1 Presence of aortocoronary bypass graft
CPT/HCPCS: 96365; 96366; G0463; J2260

== ENCOUNTER → 2018-05-01 | Outpatient (CLI) | payer MEDICARE ==
[2018-05-01] VITALS (12 sets, daily range): BP systolic 122–155; BP diastolic 52–76
[~2018-05-01] MED LIST changes: -MILRINONE 20MG/100ML 100 ML IV SCH
[2018-05-01] MEDS: MILRINONE 20MG/100ML 100 ML IV SCH (08:20)
[2018-05-01 12:49] LABS: Potassium 3.8 mmol/L (3.5-5.1)
== END | disposition home or self-care (01) ==
LOC: CHF HDHVI 08:15
PROVIDERS: ATTEND Internal Medicine Cardiovascular Disease
DX: I11.0 Hypertensive heart disease with heart failure (principal); I50.23 Acute on chronic systolic (congestive) heart failure; R94.4 Abnormal results of kidney function studies; E87.6 Hypokalemia; I70.0 Atherosclerosis of aorta; I25.10 Atherosclerotic heart disease of native coronary artery without angina pectoris; J44.9 Chronic obstructive pulmonary disease, unspecified; E83.110 Hereditary hemochromatosis; I27.21 Secondary pulmonary arterial hypertension; I25.2 Old myocardial infarction; D51.3 Other dietary vitamin B12 deficiency anemia; E11.9 Type 2 diabetes mellitus without complications; I48.91 Unspecified atrial fibrillation; E83.40 Disorders of magnesium metabolism, unspecified; E87.5 Hyperkalemia; Z79.01 Long term (current) use of anticoagulants; Z79.899 Other long term (current) drug therapy; Z87.891 Personal history of nicotine dependence; Z87.440 Personal history of urinary (tract) infections; Z95.1 Presence of aortocoronary bypass graft; Z95.810 Presence of automatic (implantable) cardiac defibrillator
CPT/HCPCS: 36415; 82565; 83880; 84132; 84520; 96365; 96366; G0463; J2260

== ENCOUNTER → 2018-05-04 | Outpatient (CLI) | payer MEDICARE ==
[~2018-05-04] VITALS: Ht 30.5 cm; Wt 61.7 kg
[2018-05-04 08:08] VITALS: BP 144/72
[2018-05-04 08:30] VITALS: BP 128/64
[2018-05-04 08:45] VITALS: BP 130/63
[2018-05-04 09:30] VITALS: BP 134/67
[2018-05-04 10:00] VITALS: BP 140/71
[2018-05-04 11:00] VITALS: BP 139/59
[2018-05-04] MEDS: MILRINONE 20MG/100ML 100 ML IV SCH (11:43)
[2018-05-07 08:15] VITALS: BP 117/58
[2018-05-07 08:30] VITALS: BP 118/57
== END | disposition home or self-care (01) ==
LOC: CHF HDHVI 08:01
PROVIDERS: ATTEND Internal Medicine Cardiovascular Disease
DX: I11.0 Hypertensive heart disease with heart failure (principal); I50.43 Acute on chronic combined systolic (congestive) and diastolic (congestive) heart failure; I25.10 Atherosclerotic heart disease of native coronary artery without angina pectoris; I70.0 Atherosclerosis of aorta; I25.2 Old myocardial infarction; I48.91 Unspecified atrial fibrillation; I25.5 Ischemic cardiomyopathy; E78.00 Pure hypercholesterolemia, unspecified; E78.5 Hyperlipidemia, unspecified; E43 Unspecified severe protein-calorie malnutrition; Z68.20 Body mass index [BMI] 20.0-20.9, adult; Z79.01 Long term (current) use of anticoagulants; Z79.899 Other long term (current) drug therapy; Z87.891 Personal history of nicotine dependence; Z95.810 Presence of automatic (implantable) cardiac defibrillator; Z95.1 Presence of aortocoronary bypass graft
CPT/HCPCS: 96365; 96366; G0463; J2260

== ENCOUNTER → 2018-05-07 | Outpatient (CLI) | payer MEDICARE ==
[2018-05-07] VITALS (10 sets, daily range): BP systolic 117–156; BP diastolic 57–74
[2018-05-07] MEDS: MILRINONE 20MG/100ML 100 ML IV SCH ×2 (16:16→17:39)
== END | disposition home or self-care (01) ==
LOC: CHF HDHVI 08:11
PROVIDERS: ATTEND Internal Medicine Cardiovascular Disease
DX: I11.0 Hypertensive heart disease with heart failure (principal); I50.43 Acute on chronic combined systolic (congestive) and diastolic (congestive) heart failure; J44.9 Chronic obstructive pulmonary disease, unspecified; R53.83 Other fatigue; I25.10 Atherosclerotic heart disease of native coronary artery without angina pectoris; I70.0 Atherosclerosis of aorta; I25.2 Old myocardial infarction; I48.91 Unspecified atrial fibrillation; E11.9 Type 2 diabetes mellitus without complications; E43 Unspecified severe protein-calorie malnutrition; Z68.20 Body mass index [BMI] 20.0-20.9, adult; Z79.899 Other long term (current) drug therapy; Z79.01 Long term (current) use of anticoagulants; Z87.891 Personal history of nicotine dependence; Z95.1 Presence of aortocoronary bypass graft; Z95.810 Presence of automatic (implantable) cardiac defibrillator
CPT/HCPCS: 96365; 96366; G0463; J2260

== ENCOUNTER → 2018-05-14 | Outpatient (CLI) | payer MEDICARE ==
[2018-05-14] VITALS (11 sets, daily range): BP systolic 113–138; BP diastolic 52–68
[~2018-05-14] MED LIST changes: +MILRINONE 20MG/100ML 100 ML IV SCH
[2018-05-14 12:40] LABS: Potassium 3.8 mmol/L (3.5-5.1)
[2018-05-14 12:56] LABS: BUN/Creatinine Ratio 22.6
== END | disposition home or self-care (01) ==
LOC: CHF HDHVI 08:06
PROVIDERS: ATTEND Internal Medicine Cardiovascular Disease
DX: I11.0 Hypertensive heart disease with heart failure (principal); I50.23 Acute on chronic systolic (congestive) heart failure; J44.9 Chronic obstructive pulmonary disease, unspecified; I50.32 Chronic diastolic (congestive) heart failure; I70.0 Atherosclerosis of aorta; I71.4 Abdominal aortic aneurysm, without rupture; I25.10 Atherosclerotic heart disease of native coronary artery without angina pectoris; I25.2 Old myocardial infarction; I25.5 Ischemic cardiomyopathy; I34.2 Nonrheumatic mitral (valve) stenosis; I35.0 Nonrheumatic aortic (valve) stenosis; I51.7 Cardiomegaly; I27.21 Secondary pulmonary arterial hypertension; E83.110 Hereditary hemochromatosis; E43 Unspecified severe protein-calorie malnutrition; N40.0 Benign prostatic hyperplasia without lower urinary tract symptoms; E78.5 Hyperlipidemia, unspecified; E78.00 Pure hypercholesterolemia, unspecified; Z87.01 Personal history of pneumonia (recurrent); Z79.01 Long term (current) use of anticoagulants; Z68.20 Body mass index [BMI] 20.0-20.9, adult; Z79.899 Other long term (current) drug therapy; Z87.891 Personal history of nicotine dependence; Z95.1 Presence of aortocoronary bypass graft; Z95.810 Presence of automatic (implantable) cardiac defibrillator; Z87.440 Personal history of urinary (tract) infections
CPT/HCPCS: 36415; 80048; 83880; 96365; 96366; G0463; J2260

== ENCOUNTER → 2018-05-18 | Outpatient (CLI) | payer MEDICARE ==
[2018-05-18] VITALS (9 sets, daily range): BP systolic 116–141; BP diastolic 43–65
[~2018-05-18] MED LIST changes: -MILRINONE 20MG/100ML 100 ML IV SCH
[2018-05-18] MEDS: MILRINONE 20MG/100ML 100 ML IV SCH ×2 (07:50→09:54)
== END | disposition home or self-care (01) ==
LOC: CHF HDHVI 07:52
PROVIDERS: ATTEND Internal Medicine Cardiovascular Disease
DX: I11.0 Hypertensive heart disease with heart failure (principal); I50.42 Chronic combined systolic (congestive) and diastolic (congestive) heart failure; I48.91 Unspecified atrial fibrillation; E11.9 Type 2 diabetes mellitus without complications; I25.10 Atherosclerotic heart disease of native coronary artery without angina pectoris; I25.2 Old myocardial infarction; J44.9 Chronic obstructive pulmonary disease, unspecified; I70.0 Atherosclerosis of aorta; I71.4 Abdominal aortic aneurysm, without rupture; I25.5 Ischemic cardiomyopathy; I27.21 Secondary pulmonary arterial hypertension; I35.0 Nonrheumatic aortic (valve) stenosis; I37.1 Nonrheumatic pulmonary valve insufficiency; I34.0 Nonrheumatic mitral (valve) insufficiency; I34.2 Nonrheumatic mitral (valve) stenosis; I07.1 Rheumatic tricuspid insufficiency; E43 Unspecified severe protein-calorie malnutrition; E78.5 Hyperlipidemia, unspecified; E78.00 Pure hypercholesterolemia, unspecified; Z90.49 Acquired absence of other specified parts of digestive tract; Z95.1 Presence of aortocoronary bypass graft; Z95.810 Presence of automatic (implantable) cardiac defibrillator; Z79.01 Long term (current) use of anticoagulants; Z79.899 Other long term (current) drug therapy; Z87.891 Personal history of nicotine dependence
CPT/HCPCS: 96365; 96366; G0463; J2260

== ENCOUNTER → 2018-05-21 | Outpatient (CLI) | payer MEDICARE ==
[2018-05-21] VITALS (9 sets, daily range): BP systolic 122–149; BP diastolic 52–67
[~2018-05-21] MED LIST changes: +MILRINONE 20MG/100ML 100 ML IV SCH
== END | disposition home or self-care (01) ==
LOC: CHF HDHVI 08:13
PROVIDERS: ATTEND Internal Medicine Cardiovascular Disease
DX: I11.0 Hypertensive heart disease with heart failure (principal); I50.42 Chronic combined systolic (congestive) and diastolic (congestive) heart failure; I25.10 Atherosclerotic heart disease of native coronary artery without angina pectoris; I42.8 Other cardiomyopathies; E11.9 Type 2 diabetes mellitus without complications; I70.0 Atherosclerosis of aorta; I71.4 Abdominal aortic aneurysm, without rupture; I25.2 Old myocardial infarction; J44.9 Chronic obstructive pulmonary disease, unspecified; I48.91 Unspecified atrial fibrillation; I27.21 Secondary pulmonary arterial hypertension; I07.1 Rheumatic tricuspid insufficiency; I35.0 Nonrheumatic aortic (valve) stenosis; I34.0 Nonrheumatic mitral (valve) insufficiency; I37.1 Nonrheumatic pulmonary valve insufficiency; E78.00 Pure hypercholesterolemia, unspecified; E78.5 Hyperlipidemia, unspecified; E43 Unspecified severe protein-calorie malnutrition; Z79.01 Long term (current) use of anticoagulants; Z79.899 Other long term (current) drug therapy; Z95.1 Presence of aortocoronary bypass graft; Z95.810 Presence of automatic (implantable) cardiac defibrillator; Z90.49 Acquired absence of other specified parts of digestive tract; Z87.891 Personal history of nicotine dependence
CPT/HCPCS: 96365; 96366; G0463; J2260

== ENCOUNTER → 2018-05-25 | Outpatient (CLI) | payer MEDICARE ==
[2018-05-25] VITALS (9 sets, daily range): BP systolic 134–161; BP diastolic 53–74
[~2018-05-25] MED LIST changes: -MILRINONE 20MG/100ML 100 ML IV SCH
== END | disposition home or self-care (01) ==
LOC: CHF HDHVI 08:17
PROVIDERS: ATTEND Internal Medicine Cardiovascular Disease
DX: I11.0 Hypertensive heart disease with heart failure (principal); I50.42 Chronic combined systolic (congestive) and diastolic (congestive) heart failure; I25.10 Atherosclerotic heart disease of native coronary artery without angina pectoris; I25.5 Ischemic cardiomyopathy; E11.9 Type 2 diabetes mellitus without complications; I25.2 Old myocardial infarction; I70.0 Atherosclerosis of aorta; I71.4 Abdominal aortic aneurysm, without rupture; J44.9 Chronic obstructive pulmonary disease, unspecified; I27.21 Secondary pulmonary arterial hypertension; I48.91 Unspecified atrial fibrillation; I35.0 Nonrheumatic aortic (valve) stenosis; I34.2 Nonrheumatic mitral (valve) stenosis; I34.0 Nonrheumatic mitral (valve) insufficiency; I37.1 Nonrheumatic pulmonary valve insufficiency; I07.1 Rheumatic tricuspid insufficiency; E78.5 Hyperlipidemia, unspecified; E78.00 Pure hypercholesterolemia, unspecified; E43 Unspecified severe protein-calorie malnutrition; Z95.1 Presence of aortocoronary bypass graft; Z95.810 Presence of automatic (implantable) cardiac defibrillator; Z90.49 Acquired absence of other specified parts of digestive tract; Z79.01 Long term (current) use of anticoagulants; Z79.899 Other long term (current) drug therapy; Z87.891 Personal history of nicotine dependence
CPT/HCPCS: 96365; 96366; G0463; J2260

== ENCOUNTER → 2018-05-28 | Outpatient (CLI) | payer MEDICARE ==
[~2018-05-28] VITALS: Ht 30.5 cm; Wt 62.1 kg
[2018-05-28] VITALS (9 sets, daily range): BP systolic 118–152; BP diastolic 59–71
[~2018-05-28] MED LIST changes: -MILRINONE 20MG/100ML 100 ML IV ONE
[2018-05-28] MEDS: MILRINONE 20MG/100ML 100 ML IV ONE ×2 (08:40→10:43)
[2018-05-28 12:15] LABS: Basophils # (auto) 0.1 uL; Eosinophils # (auto) 0.2 uL; Eosinophils % (auto) 3.3 % (0.0-7.0); Hematocrit 35.7 % (41.0-53.0); Hemoglobin 11.6 g/dL (13.5-17.5); Lymphocytes # (auto) 0.8 uL; Lymphocytes % (auto) 10.9 % (10.0-50.0); Mean Corpuscular Hemoglobin 29.9 pg (28.0-32.0); Mean Corpuscular Hgb Conc. 32.5 g/dL (32.0-36.0); Mean Corpuscular Volume 92.1 fL (80.0-100.0); Monocytes # (auto) 0.5 uL; Monocytes % (auto) 6.4 % (0.0-12.0); Neutrophils # (auto) 5.7 uL; Neutrophils % (auto) 78.4 % (37.0-80.0); Nucleated Red Blood Cells % 0.2 %; Platelet Count (auto) 301 10^3/uL (140-450); Red Blood Cells 3.88 10^6/uL (4.5-5.90); Red Cell Distribution Width 14.8 % (11.8-14.3); White Blood Cell 7.3 10^3/uL (4.4-10.8)
[2018-05-28 12:33] LABS: Potassium 3.9 mmol/L (3.5-5.1)
[2018-05-28 12:38] LABS: Calcium 8.6 mg/dL (8.5-10.1); Magnesium 2.6 mg/dL (1.6-2.6)
== END | disposition home or self-care (01) ==
LOC: CHF HDHVI 08:32
PROVIDERS: ATTEND Internal Medicine Cardiovascular Disease
DX: I11.0 Hypertensive heart disease with heart failure (principal); I50.42 Chronic combined systolic (congestive) and diastolic (congestive) heart failure; E11.9 Type 2 diabetes mellitus without complications; I25.10 Atherosclerotic heart disease of native coronary artery without angina pectoris; I70.0 Atherosclerosis of aorta; I71.4 Abdominal aortic aneurysm, without rupture; I25.2 Old myocardial infarction; J44.9 Chronic obstructive pulmonary disease, unspecified; I25.5 Ischemic cardiomyopathy; I27.21 Secondary pulmonary arterial hypertension; I48.91 Unspecified atrial fibrillation; I35.0 Nonrheumatic aortic (valve) stenosis; I34.0 Nonrheumatic mitral (valve) insufficiency; I34.2 Nonrheumatic mitral (valve) stenosis; I37.1 Nonrheumatic pulmonary valve insufficiency; I07.1 Rheumatic tricuspid insufficiency; E78.5 Hyperlipidemia, unspecified; E78.00 Pure hypercholesterolemia, unspecified; E43 Unspecified severe protein-calorie malnutrition; E83.40 Disorders of magnesium metabolism, unspecified; D64.9 Anemia, unspecified; Z90.49 Acquired absence of other specified parts of digestive tract; Z79.01 Long term (current) use of anticoagulants; Z79.899 Other long term (current) drug therapy; Z95.1 Presence of aortocoronary bypass graft; Z95.810 Presence of automatic (implantable) cardiac defibrillator; Z87.891 Personal history of nicotine dependence
CPT/HCPCS: 36415; 80048; 83735; 83880; 85025; 96365; 96366; G0463; J2260

== ENCOUNTER → 2018-06-01 | Outpatient (CLI) | payer MEDICARE ==
[2018-05-31 10:15] VITALS: BP 152/89
[2018-06-01] VITALS (10 sets, daily range): BP systolic 137–164; BP diastolic 59–76
[~2018-06-01] MED LIST changes: +FUROSEMIDE 40 MG/4 ML VIAL ONE; +KETOROLAC TROMETH 60MG/2ML VIAL IM ONE; +MILRINONE 20MG/100ML 100 ML IV ONE
== END | disposition home or self-care (01) ==
LOC: CHF HDHVI 08:07
PROVIDERS: ATTEND Internal Medicine Cardiovascular Disease
DX: I11.0 Hypertensive heart disease with heart failure (principal); I50.42 Chronic combined systolic (congestive) and diastolic (congestive) heart failure; I25.10 Atherosclerotic heart disease of native coronary artery without angina pectoris; J44.9 Chronic obstructive pulmonary disease, unspecified; E78.5 Hyperlipidemia, unspecified; I25.2 Old myocardial infarction; I70.0 Atherosclerosis of aorta; I42.9 Cardiomyopathy, unspecified; I48.91 Unspecified atrial fibrillation; E78.00 Pure hypercholesterolemia, unspecified; E11.9 Type 2 diabetes mellitus without complications; M19.90 Unspecified osteoarthritis, unspecified site; E43 Unspecified severe protein-calorie malnutrition; D72.819 Decreased white blood cell count, unspecified; Z79.01 Long term (current) use of anticoagulants; Z90.49 Acquired absence of other specified parts of digestive tract; Z79.899 Other long term (current) drug therapy; Z87.891 Personal history of nicotine dependence; Z95.1 Presence of aortocoronary bypass graft; Z95.810 Presence of automatic (implantable) cardiac defibrillator; Z87.01 Personal history of pneumonia (recurrent); Z98.890 Other specified postprocedural states
CPT/HCPCS: 93701; 96365; 96366; 96375; G0463; J1940; J2260; J1885

== ENCOUNTER → 2018-06-08 | Outpatient (CLI) | payer MEDICARE ==
[2018-06-08] VITALS (10 sets, daily range): BP systolic 106–138; BP diastolic 50–66
[~2018-06-08] VITALS: Ht 30.5 cm; Wt 0.5 kg
[~2018-06-08] MED LIST changes: -FUROSEMIDE 40 MG/4 ML VIAL ONE; +MILRINONE 20MG/100ML 100 ML IV SCH
--- NOTE | 2018-06-08 08:00 | NUR ---
PT. TO CHF CLINIC FOR EVAL AND TX FOR MILRINONE INFUSION PER MD ORDER. PT. STATES HE MISSED LAST SCHEDULED THERAPY DUE TO FALL WITH C/O PAIN TO SACRAL AREA. ORDERS RECEIVED AND CARRIED OUT. SEE NSG ASSESS.
--- NOTE | 2018-06-08 08:10 | NUR ---
IV insertion IV access obtained, via clean sterile technique by inserting 22 gauge catheter at after attempt(s). IV secured properly. No trauma to site. Patient tolerated procedure well.LABS SENT PER ORDER.
--- NOTE | 2018-06-08 08:26 | NUR ---
COMFORT: PT MEDICATED WITH TORADOL 60 MG IM RUG FOR SACRAL PAIN 4/10 PER MD ORDER.
--- NOTE | 2018-06-08 08:27 | NUR ---
MEDS: MILRINONE DRIP STARTED AT .375 MCG/KG/ MIN. NOT TO BE TITRARED PER MD ORDER.
--- NOTE | 2018-06-08 09:16 | NUR ---
COMFORT: PT STATES PAIN GONE AT THIS TIME. RESTING WITH IV MEDS INFUSING. VSS.
[2018-06-08 12:57] LABS: Basophils # (auto) 0.1 uL; Basophils % (auto) 2.2 % (0.0-2.0); Eosinophils # (auto) 0.2 uL; Eosinophils % (auto) 4.5 % (0.0-7.0); Hematocrit 36.4 % (41.0-53.0); Hemoglobin 11.9 g/dL (13.5-17.5); Lymphocytes # (auto) 0.7 uL; Lymphocytes % (auto) 13.2 % (10.0-50.0); Mean Corpuscular Hgb Conc. 32.7 g/dL (32.0-36.0); Mean Corpuscular Volume 91.6 fL (80.0-100.0); Monocytes # (auto) 0.4 uL; Monocytes % (auto) 6.6 % (0.0-12.0); Neutrophils % (auto) 73.5 % (37.0-80.0); Nucleated Red Blood Cells % 0.6 %; Platelet Count (auto) 260 10^3/uL (140-450); Red Blood Cells 3.97 10^6/uL (4.5-5.90); Red Cell Distribution Width 14.9 % (11.8-14.3); White Blood Cell 5.4 10^3/uL (4.4-10.8)
--- NOTE | 2018-06-08 13:00 | NUR ---
CHF CLINIC Discharge Instructions See e-MAR for any mediations given with this visit. Patient education given on disease process. Patient verbalized understanding. Previous labs reviewed. Patient discharged in stable condition with after care instructions and follow up appointment ON MONDAY. NOTE MILRINONE INFUSION [id number] ADMIN BY SLOANE CULVER. TORADOL IM R GLUTE ADMIN BY SLOANE CULVER.
[2018-06-08 13:06] LABS: Calcium 8.3 mg/dL (8.5-10.1); Magnesium 2.6 mg/dL (1.6-2.6); Potassium 3.7 mmol/L (3.5-5.1)
[2018-06-08 13:07] LABS: BUN/Creatinine Ratio 19.1
== END | disposition home or self-care (01) ==
LOC: CHF HDHVI 08:12
PROVIDERS: ATTEND Internal Medicine Cardiovascular Disease
DX: I11.0 Hypertensive heart disease with heart failure (principal); I50.42 Chronic combined systolic (congestive) and diastolic (congestive) heart failure; D64.9 Anemia, unspecified; E83.40 Disorders of magnesium metabolism, unspecified; I25.10 Atherosclerotic heart disease of native coronary artery without angina pectoris; M19.90 Unspecified osteoarthritis, unspecified site; I70.0 Atherosclerosis of aorta; J44.9 Chronic obstructive pulmonary disease, unspecified; E78.5 Hyperlipidemia, unspecified; E11.9 Type 2 diabetes mellitus without complications; I48.91 Unspecified atrial fibrillation; I25.2 Old myocardial infarction; I42.9 Cardiomyopathy, unspecified; E78.00 Pure hypercholesterolemia, unspecified; Z87.891 Personal history of nicotine dependence; Z90.49 Acquired absence of other specified parts of digestive tract; Z79.01 Long term (current) use of anticoagulants; Z79.899 Other long term (current) drug therapy; Z95.1 Presence of aortocoronary bypass graft; Z95.810 Presence of automatic (implantable) cardiac defibrillator
CPT/HCPCS: 36415; 80048; 83735; 83880; 85025; 96365; 96366; 96372; G0463; J1885; J2260

== ENCOUNTER → 2018-06-11 | Outpatient (CLI) | payer MEDICARE ==
[2018-06-11] VITALS (11 sets, daily range): BP systolic 105–140; BP diastolic 50–80
[~2018-06-11] VITALS: Ht 30.5 cm; Wt 0.5 kg
[~2018-06-11] MED LIST changes: +BACITRACIN TOP OINT 1 UD PKG TOP ONE; -KETOROLAC TROMETH 60MG/2ML VIAL IM ONE
== END | disposition home or self-care (01) ==
LOC: CHF HDHVI 07:57
PROVIDERS: ATTEND Internal Medicine Cardiovascular Disease
DX: I11.0 Hypertensive heart disease with heart failure (principal); I50.42 Chronic combined systolic (congestive) and diastolic (congestive) heart failure; S60.511A Abrasion of right hand, initial encounter; J44.9 Chronic obstructive pulmonary disease, unspecified; E11.9 Type 2 diabetes mellitus without complications; I25.10 Atherosclerotic heart disease of native coronary artery without angina pectoris; I70.0 Atherosclerosis of aorta; I25.2 Old myocardial infarction; I48.91 Unspecified atrial fibrillation; I25.5 Ischemic cardiomyopathy; I71.4 Abdominal aortic aneurysm, without rupture; I35.0 Nonrheumatic aortic (valve) stenosis; I37.1 Nonrheumatic pulmonary valve insufficiency; I05.2 Rheumatic mitral stenosis with insufficiency; I07.1 Rheumatic tricuspid insufficiency; I27.21 Secondary pulmonary arterial hypertension; E43 Unspecified severe protein-calorie malnutrition; E78.5 Hyperlipidemia, unspecified; E78.00 Pure hypercholesterolemia, unspecified; Z79.01 Long term (current) use of anticoagulants; Z90.49 Acquired absence of other specified parts of digestive tract; Z79.899 Other long term (current) drug therapy; Z95.1 Presence of aortocoronary bypass graft; Z95.810 Presence of automatic (implantable) cardiac defibrillator; Z87.891 Personal history of nicotine dependence; X58.XXXA Exposure to other specified factors, initial encounter; Y93.89 Activity, other specified; Y92.89 Other specified places as the place of occurrence of the external cause; Y99.8 Other external cause status
CPT/HCPCS: 96365; 96366; G0463; J2260

== ENCOUNTER → 2018-06-15 | Outpatient (CLI) | payer MEDICARE ==
[2018-06-15] VITALS (12 sets, daily range): BP systolic 123–148; BP diastolic 48–76
[~2018-06-15] MED LIST changes: -BACITRACIN TOP OINT 1 UD PKG TOP ONE; +CYANOCOBALAMIN (B-12) 1000 MCG/1 ML VIAL IM ONE; +CYANOCOBALAMIN (B-12) 1000 MCG/1 ML VIAL ONE; +FUROSEMIDE 20 MG/2 ML VIAL IV ONE; +FUROSEMIDE 20 MG/2 ML VIAL ONE; -MILRINONE 20MG/100ML 100 ML IV SCH; +POTASSIUM CHL 10 Meq TABLET PO ONE; +POTASSIUM CHL 20 Meq TABLET PO ONE
--- NOTE | 2018-06-15 07:50 | NUR ---
PT. TO CHF CLINIC FOR MILRINONE INFUSION PER DR. MCGRATH. WT. UP SLIGHTLY WITH RECENT LABS REVIEWED WITH PT. ORDERS RECEIVED AND CARRIED OUT. SEE NSG ASSESS.
--- NOTE | 2018-06-15 07:55 | NUR ---
IV insertion IV access obtained, via clean sterile technique by inserting 22 gauge catheter at after attempt(s). IV secured properly. No trauma to site. Patient tolerated procedure well.
--- NOTE | 2018-06-15 08:02 | NUR ---
MEDS: MILRINONE DRIP STARTED AT .375 MCG/KG/MIN PER MD ORDER WITH NO TITRATION ORDER./
[2018-06-15] MEDS: MILRINONE 20MG/100ML 100 ML IV SCH ×2 (08:44→17:35)
--- NOTE | 2018-06-15 09:05 | NUR ---
CHF LASIX 20MG IVP AT 0900. POTASSIUM CHLORIDE 20MEQ PO AT 0902 VIT B 12 1000MCG IM L DELT. 0905
--- NOTE | 2018-06-15 12:00 | NUR ---
CHF STOP MILRINONE IV COMPLETE.
--- NOTE | 2018-06-15 12:37 | NUR ---
CHF IV removal IV DC'd with sterile technique, catheter fully intact. Pressure dressing applied to site. Patient tolerated procedure well. Discharged with aftercare instructions per MD. FOLLOW UP Monday06/18/18 NOTE:
== END | disposition home or self-care (01) ==
LOC: CHF HDHVI 07:59
PROVIDERS: ATTEND Internal Medicine Cardiovascular Disease
DX: I25.10 Atherosclerotic heart disease of native coronary artery without angina pectoris (principal); D64.9 Anemia, unspecified; I11.0 Hypertensive heart disease with heart failure; I50.42 Chronic combined systolic (congestive) and diastolic (congestive) heart failure; J44.9 Chronic obstructive pulmonary disease, unspecified; E78.5 Hyperlipidemia, unspecified; I25.2 Old myocardial infarction; E78.00 Pure hypercholesterolemia, unspecified; I70.0 Atherosclerosis of aorta; I42.9 Cardiomyopathy, unspecified; E11.9 Type 2 diabetes mellitus without complications; I48.91 Unspecified atrial fibrillation; Z95.1 Presence of aortocoronary bypass graft; Z87.01 Personal history of pneumonia (recurrent); Z68.20 Body mass index [BMI] 20.0-20.9, adult; Z95.810 Presence of automatic (implantable) cardiac defibrillator; Z79.01 Long term (current) use of anticoagulants; Z87.891 Personal history of nicotine dependence; Z79.899 Other long term (current) drug therapy
CPT/HCPCS: 96365; 96366; 96372; 96375; G0463; J1940; J2260; J3420

== ENCOUNTER → 2018-06-18 | Outpatient (CLI) | payer MEDICARE ==
[2018-06-18] VITALS (10 sets, daily range): BP systolic 134–159; BP diastolic 44–78
[~2018-06-18] MED LIST changes: +BACITRACIN TOP OINT 1 UD PKG TOP ONE; -CYANOCOBALAMIN (B-12) 1000 MCG/1 ML VIAL IM ONE; -CYANOCOBALAMIN (B-12) 1000 MCG/1 ML VIAL ONE; -FUROSEMIDE 20 MG/2 ML VIAL IV ONE; -FUROSEMIDE 20 MG/2 ML VIAL ONE; +MILRINONE 20MG/100ML 100 ML IV SCH; -POTASSIUM CHL 10 Meq TABLET PO ONE; -POTASSIUM CHL 20 Meq TABLET PO ONE
--- NOTE | 2018-06-18 08:00 | NUR ---
PT. TO CHF CLINIC FOR MILRINONE THERAPY PER DR. MCGRATH. PT. ALSO PRESENTS WITH RT FA SKIN TEAR FROM ONE DAY AGO AT HOME. ORDERS RECEIVED AND CARRIED OUT. SEE NSG ASSESS.
--- NOTE | 2018-06-18 08:15 | NUR ---
IV insertion IV access obtained, via clean sterile technique by inserting 22 gauge catheter at after attempt(s). IV secured properly. No trauma to site. Patient tolerated procedure well.LABS SENT PER MD ORDER.
--- NOTE | 2018-06-18 08:23 | NUR ---
MEDS: MILRINONE STARTED AT .375MCG/KG/MIN PER MD ORDER.
--- NOTE | 2018-06-18 10:00 | NUR ---
PT. TO AND BATHROOM . MEDS RESUMED WITH NO C/O BY PT. VSS
[2018-06-18 12:11] LABS: Basophils # (auto) 0.1 uL; Basophils % (auto) 1.2 % (0.0-2.0); Eosinophils # (auto) 0.3 uL; Eosinophils % (auto) 6.1 % (0.0-7.0); Hematocrit 34.7 % (41.0-53.0); Hemoglobin 11.4 g/dL (13.5-17.5); Lymphocytes # (auto) 0.8 uL; Lymphocytes % (auto) 17.6 % (10.0-50.0); Mean Corpuscular Hemoglobin 30.5 pg (28.0-32.0); Mean Corpuscular Hgb Conc. 32.8 g/dL (32.0-36.0); Mean Corpuscular Volume 92.9 fL (80.0-100.0); Monocytes # (auto) 0.4 uL; Monocytes % (auto) 9.4 % (0.0-12.0); Neutrophils # (auto) 3.1 uL; Neutrophils % (auto) 65.7 % (37.0-80.0); Nucleated Red Blood Cells % 0.5 %; Platelet Count (auto) 243 10^3/uL (140-450); Red Blood Cells 3.73 10^6/uL (4.5-5.90); Red Cell Distribution Width 15.1 % (11.8-14.3); White Blood Cell 4.7 10^3/uL (4.4-10.8)
--- NOTE | 2018-06-18 12:45 | NUR ---
WOUND CARE DONE TO RT FA SKIN CARE PER MD ORDER. PT. TOLERATED PROCEDURE WELL.
--- NOTE | 2018-06-18 13:00 | NUR ---
IV removal IV DC'd with sterile technique, catheter fully intact. Pressure dressing applied to site. Patient tolerated procedure well. Discharged with aftercare instructions per MD. NOTE:
[2018-06-18 13:11] LABS: BUN/Creatinine Ratio 25.8; Calcium 8.4 mg/dL (8.5-10.1)
== END | disposition home or self-care (01) ==
LOC: CHF HDHVI 08:05
PROVIDERS: ATTEND Internal Medicine Cardiovascular Disease
DX: I25.10 Atherosclerotic heart disease of native coronary artery without angina pectoris (principal); I11.0 Hypertensive heart disease with heart failure; I50.42 Chronic combined systolic (congestive) and diastolic (congestive) heart failure; D64.9 Anemia, unspecified; E83.40 Disorders of magnesium metabolism, unspecified; E11.9 Type 2 diabetes mellitus without complications; I70.0 Atherosclerosis of aorta; I42.8 Other cardiomyopathies; I48.91 Unspecified atrial fibrillation; J44.9 Chronic obstructive pulmonary disease, unspecified; E78.5 Hyperlipidemia, unspecified; E78.00 Pure hypercholesterolemia, unspecified; I25.2 Old myocardial infarction; Z87.891 Personal history of nicotine dependence; Z87.01 Personal history of pneumonia (recurrent); Z95.1 Presence of aortocoronary bypass graft; Z79.01 Long term (current) use of anticoagulants; Z95.810 Presence of automatic (implantable) cardiac defibrillator
CPT/HCPCS: 36415; 80048; 83036; 83880; 85025; 96365; 96366; G0463; J2260

== ENCOUNTER → 2018-06-22 | Outpatient (CLI) | payer MEDICARE ==
[2018-06-22] VITALS (9 sets, daily range): BP systolic 135–159; BP diastolic 57–77
[~2018-06-22] MED LIST changes: -BACITRACIN TOP OINT 1 UD PKG TOP ONE
--- NOTE | 2018-06-22 08:00 | NUR ---
IN TO CLINIC FOR SCHEDULED INFUSION. AFFECT CHEERFUL, WITHOUT DISTRESS.
--- NOTE | 2018-06-22 08:13 | NUR ---
IV insertion IV access obtained, via clean sterile technique by inserting 22 gauge catheter at after attempt(s)BY SLOANE CULVER. IV secured properly. No trauma to site. Patient tolerated procedure well. START MILRINONE GTT
--- NOTE | 2018-06-22 09:00 | NUR ---
MILRINONE INFUSING. TOLERATING WELL.
--- NOTE | 2018-06-22 12:06 | NUR ---
MILRINONE INFUSION COMPLETED. PT HAS BEEN DOZING OR VISITING DURING INFUSION. SEE FREQUENT VITAL SIGNS.
--- NOTE | 2018-06-22 12:40 | NUR ---
IV SITE TO RIGHT FOREARM DCD. SITE BENIGN. VS WNL. Discharge Instructions See e-MAR for any mediations given with this visit. Patient education given on disease process. Patient verbalized understanding. Previous labs reviewed. Patient discharged in stable condition with after care instructions and follow up appointment FOR 06/25/18 MEDICATION ADMINISTRATION MILRINONE GTT AT 0.375 MCG/KG/MIN START AT 0813/STOP AT 1206 (7.08 ML/HR)
== END | disposition home or self-care (01) ==
LOC: CHF HDHVI 08:14
PROVIDERS: ATTEND Internal Medicine Cardiovascular Disease
DX: I11.0 Hypertensive heart disease with heart failure (principal); I50.42 Chronic combined systolic (congestive) and diastolic (congestive) heart failure; J44.9 Chronic obstructive pulmonary disease, unspecified; I25.10 Atherosclerotic heart disease of native coronary artery without angina pectoris; E11.9 Type 2 diabetes mellitus without complications; I25.5 Ischemic cardiomyopathy; I70.0 Atherosclerosis of aorta; I25.2 Old myocardial infarction; E78.00 Pure hypercholesterolemia, unspecified; I48.91 Unspecified atrial fibrillation; E78.5 Hyperlipidemia, unspecified; I71.4 Abdominal aortic aneurysm, without rupture; E43 Unspecified severe protein-calorie malnutrition; I27.21 Secondary pulmonary arterial hypertension; M19.90 Unspecified osteoarthritis, unspecified site; Z79.01 Long term (current) use of anticoagulants; Z87.01 Personal history of pneumonia (recurrent); Z95.1 Presence of aortocoronary bypass graft; Z95.810 Presence of automatic (implantable) cardiac defibrillator; Z79.899 Other long term (current) drug therapy; Z90.49 Acquired absence of other specified parts of digestive tract; Z87.891 Personal history of nicotine dependence
CPT/HCPCS: 96365; 96366; G0463; J2260

== ENCOUNTER → 2018-06-25 | Outpatient (CLI) | payer MEDICARE ==
[2018-06-25] VITALS (11 sets, daily range): BP systolic 131–157; BP diastolic 61–83
--- NOTE | 2018-06-25 08:00 | NUR ---
IN TO CLINIC FOR SCHEDULED INFUSION. NO SOB, NO DISTRESS NOTED. IV insertion IV access obtained, via clean sterile technique by inserting 22 gauge catheter at [L)FORARM after [1] attempt(s). IV secured properly. No trauma to site. Patient tolerated procedure well.
--- NOTE | 2018-06-25 08:12 | NUR ---
START MILRINONE GTT AT 0.375 MCG/KG/MIN)
--- NOTE | 2018-06-25 09:30 | NUR ---
CHF PT CONTINUES MILRINONE DRIP.UP ONCE TO BATHROOM.
--- NOTE | 2018-06-25 11:00 | NUR ---
CHF PT STATES HAS TAKEN ALL AM MEDICATIONS AND HE IS FEELING BETTER THAN L;AST TX WITH SOB ON EXERT AND ONLY SOME SOB OCCASIONALLY AT REST.
--- NOTE | 2018-06-25 12:00 | NUR ---
MILRINONE INFUSION COMPLETED. TOLERATED WELL. SEE FREQUENT VITAL SIGNS.
[2018-06-25 12:23] LABS: Basophils # (auto) 0.1 uL; Basophils % (auto) 1.4 % (0.0-2.0); Eosinophils # (auto) 0.3 uL; Eosinophils % (auto) 5.4 % (0.0-7.0); Hematocrit 34.3 % (41.0-53.0); Hemoglobin 11.2 g/dL (13.5-17.5); Lymphocytes % (auto) 17.6 % (10.0-50.0); Mean Corpuscular Hemoglobin 30.2 pg (28.0-32.0); Mean Corpuscular Hgb Conc. 32.8 g/dL (32.0-36.0); Mean Corpuscular Volume 91.9 fL (80.0-100.0); Monocytes # (auto) 0.4 uL; Monocytes % (auto) 7.2 % (0.0-12.0); Neutrophils # (auto) 3.7 uL; Neutrophils % (auto) 68.4 % (37.0-80.0); Nucleated Red Blood Cells % 0.2 %; Platelet Count (auto) 230 10^3/uL (140-450); Red Blood Cells 3.73 10^6/uL (4.5-5.90); Red Cell Distribution Width 15.4 % (11.8-14.3); White Blood Cell 5.4 10^3/uL (4.4-10.8)
--- NOTE | 2018-06-25 12:44 | NUR ---
IV SITE DCD AND SITE BENIGN POST INFUSION. Discharge Instructions See e-MAR for any mediations given with this visit. Patient education given on disease process. Patient verbalized understanding. Previous labs reviewed. Patient discharged in stable condition with after care instructions and follow up appointment FOR Monday06/29/18 MEDICATION ADMINISTRATION MILRINONE GTT AT 0.375MCG/KG/MIN START AT 0812/STOP AT 1200 (7.18ML/HR)
[2018-06-25 12:46] LABS: Potassium 4.1 mmol/L (3.5-5.1)
[2018-06-25 12:57] LABS: BUN/Creatinine Ratio 22.3; Calcium 8.4 mg/dL (8.5-10.1)
== END | disposition home or self-care (01) ==
LOC: CHF HDHVI 08:04
PROVIDERS: ATTEND Internal Medicine Cardiovascular Disease
DX: I11.0 Hypertensive heart disease with heart failure (principal); I50.42 Chronic combined systolic (congestive) and diastolic (congestive) heart failure; J44.9 Chronic obstructive pulmonary disease, unspecified; I48.91 Unspecified atrial fibrillation; I71.4 Abdominal aortic aneurysm, without rupture; I25.10 Atherosclerotic heart disease of native coronary artery without angina pectoris; I25.5 Ischemic cardiomyopathy; I27.21 Secondary pulmonary arterial hypertension; I35.0 Nonrheumatic aortic (valve) stenosis; I25.2 Old myocardial infarction; I07.1 Rheumatic tricuspid insufficiency; I70.0 Atherosclerosis of aorta; I37.1 Nonrheumatic pulmonary valve insufficiency; I34.2 Nonrheumatic mitral (valve) stenosis; I34.0 Nonrheumatic mitral (valve) insufficiency; E78.5 Hyperlipidemia, unspecified; E78.00 Pure hypercholesterolemia, unspecified; E43 Unspecified severe protein-calorie malnutrition; E11.9 Type 2 diabetes mellitus without complications; M19.90 Unspecified osteoarthritis, unspecified site; Z90.49 Acquired absence of other specified parts of digestive tract; Z79.01 Long term (current) use of anticoagulants; Z79.899 Other long term (current) drug therapy; Z87.891 Personal history of nicotine dependence; Z87.01 Personal history of pneumonia (recurrent); Z95.1 Presence of aortocoronary bypass graft; Z95.810 Presence of automatic (implantable) cardiac defibrillator; Z87.440 Personal history of urinary (tract) infections
CPT/HCPCS: 36415; 80048; 83880; 85025; 96365; 96366; G0463; J2260

== ENCOUNTER → 2018-06-29 | Outpatient (CLI) | payer MEDICARE ==
[~2018-06-29] MED LIST changes: +FUROSEMIDE 40 MG/4 ML VIAL IV ONE; +FUROSEMIDE 40 MG/4 ML VIAL ONE; -MILRINONE 20MG/100ML 100 ML IV SCH; +POTASSIUM CHL 10 Meq TABLET PO ONE; +POTASSIUM CHL 20 Meq TABLET PO ONE
--- NOTE | 2018-06-29 08:00 | NUR ---
IV insertion IV access obtained by Sandoval CULVER, via clean sterile technique by inserting 22 gauge catheter at LFA after 1 attempt(s). IV secured properly. No trauma to site. Patient tolerated procedure well.
[2018-06-29 08:15] VITALS: BP 122/58
[2018-06-29 08:30] VITALS: BP 124/55
[2018-06-29 09:00] VITALS: BP 132/59
--- NOTE | 2018-06-29 12:30 | NUR ---
INFUSION COMPLETED AND IV SITE TO LEFT FOREARM DCD. SITE BENIGN. VS WNL. TOLERATED WELL. SEE FREQUENT VITAL SIGNS. Discharge Instructions See e-MAR for any mediations given with this visit. Patient education given on disease process. Patient verbalized understanding. Previous labs reviewed. Patient discharged in stable condition with after care instructions and follow up appointment FOR Monday07/02/18 MEDICATION ADMINISTRATION MILRINONE GTT AT 0.375 MCG/KG/MIN START AT 0808/STOP AT 1210 (7.15ML/HR) LASIX 40 MG IVP AT 1210 POTASSIUM 20 MEQ PO AT 1210
[2018-06-29 12:32] VITALS: BP 145/70
== END | disposition home or self-care (01) ==
LOC: CHF HDHVI 08:02
PROVIDERS: ATTEND Internal Medicine Cardiovascular Disease
DX: I11.0 Hypertensive heart disease with heart failure (principal); I50.42 Chronic combined systolic (congestive) and diastolic (congestive) heart failure; I25.10 Atherosclerotic heart disease of native coronary artery without angina pectoris; J44.9 Chronic obstructive pulmonary disease, unspecified; E78.5 Hyperlipidemia, unspecified; I25.2 Old myocardial infarction; E78.00 Pure hypercholesterolemia, unspecified; I48.91 Unspecified atrial fibrillation; M19.90 Unspecified osteoarthritis, unspecified site; E87.6 Hypokalemia; E11.9 Type 2 diabetes mellitus without complications; Z79.01 Long term (current) use of anticoagulants; Z79.899 Other long term (current) drug therapy; Z87.891 Personal history of nicotine dependence; Z95.1 Presence of aortocoronary bypass graft; Z95.810 Presence of automatic (implantable) cardiac defibrillator
CPT/HCPCS: 96365; 96366; 96375; G0463; J1940; J2260

== ENCOUNTER → 2018-07-02 | Outpatient (CLI) | payer MEDICARE ==
[~2018-07-02] VITALS: Ht 30.5 cm; Wt 61.7 kg
[~2018-07-02] MED LIST changes: -FUROSEMIDE 40 MG/4 ML VIAL IV ONE; -FUROSEMIDE 40 MG/4 ML VIAL ONE
--- NOTE | 2018-07-02 08:00 | NUR ---
CHF PT TO CHF CLINIC FOR MD MCGRATH ORDERED MILRINONE THERAPY.
[2018-07-02 08:25] VITALS: BP 108/57
--- NOTE | 2018-07-02 08:25 | NUR ---
CHF Clinic Provider Clinic Provider DR. MCGRATH pt with new orders received and carried out. LAB DRAW BUN/CREAT/K. MILRINONE DRIP gtt started at {0.375}mcg/kg/MIN per MD order. IV insertion IV access obtained, via clean sterile technique by inserting 22 gauge catheter at after 2 attempt(s). IV secured properly. No trauma to site. Patient tolerated procedure well.
[2018-07-02 08:45] VITALS: BP 115/62
[2018-07-02 09:00] VITALS: BP 123/56
--- NOTE | 2018-07-02 09:09 | NUR ---
CHF PT HAS ECHO SCHEDULED FOR 07/13/[address] MCGRATH F/U 07/09/18 AT 1150.
[2018-07-02] MEDS: MILRINONE 20MG/100ML 100 ML IV SCH ×2 (09:10→10:58)
[2018-07-02 09:15] VITALS: BP 132/56
--- NOTE | 2018-07-02 10:59 | NUR ---
MILRINONE INFUSION ONGOING. TOLERATING WELL. AWAKE WITHOUT DISTRESS.
[2018-07-02 11:57] LABS: Potassium 3.7 mmol/L (3.5-5.1)
[2018-07-02 12:16] LABS: Blood Urea Nitrogen 17 mg/dL (7-18); GFR African American > 60 mL/min; GFR Non-African American > 60 mL/min
--- NOTE | 2018-07-02 12:26 | NUR ---
INFUSION COMPLETED. MILRINONE GTT TURNED TO OFF.
[2018-07-02 12:50] VITALS: BP 113/63
--- NOTE | 2018-07-02 12:50 | NUR ---
REVIEWED LABS AND CURRENT MEDICINES. PT REPORTS DECREASED EFFORT IN BREATHING SINCE TAKING LASIX ON MONDAY AND MONDAY. PLAN TO CONTINUE LASIX 40 MG IN AM DOSE AND REEVALUATE ON MONDAY PER CLINIC PROVIDER. PT INSTRUCTED AND GIVEN RATIONALE. REPEAT BACK INSTRUCTIONS OBTAINED. Discharge Instructions See e-MAR for any mediations given with this visit. Patient education given on disease process. Patient verbalized understanding. Previous labs reviewed. Patient discharged in stable condition with after care instructions and follow up appointment FOR Monday07/06/18 MEDICATION ADMINISTRATION MILRINONE GTT AT 0.375 MCG/KG/MIN START AT 0825/STOP AT 1226 (6.97 ML/HR) POTASSIUM 40 MEQ PO AT 1245
== END | disposition home or self-care (01) ==
LOC: CHF HDHVI 08:29
PROVIDERS: ATTEND Internal Medicine Cardiovascular Disease
DX: I11.0 Hypertensive heart disease with heart failure (principal); I50.42 Chronic combined systolic (congestive) and diastolic (congestive) heart failure; I25.10 Atherosclerotic heart disease of native coronary artery without angina pectoris; I70.0 Atherosclerosis of aorta; I25.2 Old myocardial infarction; J44.9 Chronic obstructive pulmonary disease, unspecified; I27.21 Secondary pulmonary arterial hypertension; E78.00 Pure hypercholesterolemia, unspecified; I48.91 Unspecified atrial fibrillation; I25.5 Ischemic cardiomyopathy; E78.5 Hyperlipidemia, unspecified; E43 Unspecified severe protein-calorie malnutrition; I71.4 Abdominal aortic aneurysm, without rupture; M19.90 Unspecified osteoarthritis, unspecified site; E87.6 Hypokalemia; R94.4 Abnormal results of kidney function studies; Z79.01 Long term (current) use of anticoagulants; Z95.1 Presence of aortocoronary bypass graft; Z95.810 Presence of automatic (implantable) cardiac defibrillator; Z90.49 Acquired absence of other specified parts of digestive tract; Z87.891 Personal history of nicotine dependence
CPT/HCPCS: 36415; 82565; 83880; 84132; 84520; 96365; 96366; G0463; J2260

== ENCOUNTER → 2018-07-06 | Outpatient (CLI) | payer MEDICARE ==
[~2018-07-06] VITALS: Ht 30.5 cm; Wt 0.5 kg
[2018-07-06] VITALS (10 sets, daily range): BP systolic 107–142; BP diastolic 50–70
[2018-07-06] MEDS: MILRINONE 20MG/100ML 100 ML IV SCH ×2 (09:38→12:26)
[2018-07-06 12:17] LABS: Chloride 100 mmol/L (98-107); Potassium 4.1 mmol/L (3.5-5.1); Sodium 138 mmol/L (136-145)
[2018-07-06 12:23] LABS: Anion Gap 3 (5-15); BUN/Creatinine Ratio 21.4; Blood Urea Nitrogen 21 mg/dL (7-18); Calcium 8.3 mg/dL (8.5-10.1); Carbon Dioxide 35 mmol/L (21-32); GFR African American > 60 mL/min; GFR Non-African American > 60 mL/min; Glucose 89 mg/dL (74-106)
== END | disposition home or self-care (01) ==
LOC: CHF HDHVI 08:04
PROVIDERS: ATTEND Internal Medicine Cardiovascular Disease
DX: I11.0 Hypertensive heart disease with heart failure (principal); I50.42 Chronic combined systolic (congestive) and diastolic (congestive) heart failure; J44.9 Chronic obstructive pulmonary disease, unspecified; I70.0 Atherosclerosis of aorta; I25.10 Atherosclerotic heart disease of native coronary artery without angina pectoris; E78.5 Hyperlipidemia, unspecified; I25.2 Old myocardial infarction; I27.21 Secondary pulmonary arterial hypertension; I48.91 Unspecified atrial fibrillation; E78.00 Pure hypercholesterolemia, unspecified; I71.4 Abdominal aortic aneurysm, without rupture; J45.909 Unspecified asthma, uncomplicated; M19.90 Unspecified osteoarthritis, unspecified site; Z79.01 Long term (current) use of anticoagulants; Z79.899 Other long term (current) drug therapy; Z87.891 Personal history of nicotine dependence; Z95.1 Presence of aortocoronary bypass graft; Z95.810 Presence of automatic (implantable) cardiac defibrillator; Z87.01 Personal history of pneumonia (recurrent)
CPT/HCPCS: 36415; 80048; 83880; 96365; 96366; G0463; J2260

== ENCOUNTER → 2018-07-09 | Outpatient (CLI) | payer MEDICARE ==
[~2018-07-09] VITALS: Ht 30.5 cm; Wt 0.5 kg
[2018-07-09] VITALS (10 sets, daily range): BP systolic 111–155; BP diastolic 48–72
[~2018-07-09] MED LIST changes: -POTASSIUM CHL 10 Meq TABLET PO ONE; -POTASSIUM CHL 20 Meq TABLET PO ONE
--- NOTE | 2018-07-09 07:50 | NUR ---
CHF PT TO CHF CLINIC FOR MD MCGRATH ORDERED MILRINONE DRIP THERAPY FOR CHF, CAD MANAGEMENT.
--- NOTE | 2018-07-09 08:00 | NUR ---
CHF IV insertion IV access obtained, via clean sterile technique by inserting 22 gauge catheter at after attempt(s). IV secured properly. No trauma to site. Patient tolerated procedure well. MILRINONE 0.375MCG/KG/MIN STARTED AT 6.58ML/HR PER MD MCGRATH ORDER. PT TOLERATED WELL.
--- NOTE | 2018-07-09 09:00 | NUR ---
CHF PT STATES ECHO SCHEDULED FOR Monday07/13/18.
--- NOTE | 2018-07-09 10:00 | NUR ---
CHF PT STATES NO FALLS AT THIS LAST WEEK SKIN INTACT, NO SKIN TEARS.
[2018-07-09] MEDS: MILRINONE 20MG/100ML 100 ML IV SCH ×2 (10:08→14:28)
--- NOTE | 2018-07-09 11:00 | NUR ---
CHF PT STOPPED IV THERAPY AT 1100 FOR MD GUILLORY.
--- NOTE | 2018-07-09 12:52 | NUR ---
CHF PT RETURNED TO CLINIC AND RESUMED IV MILRINONE THERAPY.
--- NOTE | 2018-07-09 14:00 | NUR ---
CHF IV MILRINONE COMPLETE. IV removal IV DC'd with sterile technique, catheter fully intact. Pressure dressing applied to site. Patient tolerated procedure well. Discharged with aftercare instructions per MD. ECHO SCHEDULED FOR 07/11/18 AT 1100. PT VERB UNDERSTANDING. NOTE:
== END | disposition home or self-care (01) ==
LOC: CHF HDHVI 07:59
PROVIDERS: ATTEND Internal Medicine Cardiovascular Disease
DX: I11.0 Hypertensive heart disease with heart failure (principal); I50.42 Chronic combined systolic (congestive) and diastolic (congestive) heart failure; I25.10 Atherosclerotic heart disease of native coronary artery without angina pectoris; E11.9 Type 2 diabetes mellitus without complications; I70.0 Atherosclerosis of aorta; J44.9 Chronic obstructive pulmonary disease, unspecified; I25.2 Old myocardial infarction; I27.21 Secondary pulmonary arterial hypertension; E78.5 Hyperlipidemia, unspecified; I71.4 Abdominal aortic aneurysm, without rupture; I48.91 Unspecified atrial fibrillation; I25.5 Ischemic cardiomyopathy; E78.00 Pure hypercholesterolemia, unspecified; M19.90 Unspecified osteoarthritis, unspecified site; E43 Unspecified severe protein-calorie malnutrition; Z79.01 Long term (current) use of anticoagulants; Z79.899 Other long term (current) drug therapy; Z95.1 Presence of aortocoronary bypass graft; Z95.810 Presence of automatic (implantable) cardiac defibrillator; Z90.49 Acquired absence of other specified parts of digestive tract; Z87.891 Personal history of nicotine dependence
CPT/HCPCS: 96365; 96366; G0463; J2260

== ENCOUNTER → 2018-07-13 | Outpatient (CLI) | payer MEDICARE ==
[2018-07-13] VITALS (10 sets, daily range): BP systolic 133–149; BP diastolic 58–69
[~2018-07-13] MED LIST changes: +MILRINONE 20MG/100ML 100 ML IV SCH
--- NOTE | 2018-07-13 08:20 | NUR ---
CHF Clinic Provider Clinic Provider DR. MCGRATH pt with new orders received and carried out. MILRINONE gtt started at {0.375}mcg/kg/MIN per MD order. Whitney Cath Insertion 20 gauge Whitney Cath inserted using sterile technique in the upper chest with occlusive dressing over franco needle. Patient tolerated procedure well. Ordered labs drawn and sent. See e-MAR for medications given during this visit.
--- NOTE | 2018-07-13 08:20 | NUR ---
CHF PT TO CHF CLINIC FOR MD MCGRATH ORDERED MILRINONE THERAPY.
--- NOTE | 2018-07-13 11:15 | NUR ---
CHF PT IV MILRINONE STOPPED FOR PT TO GO TO ECHO.
--- NOTE | 2018-07-13 11:41 | NUR ---
PATIENT BACK FROM ECHO AND MILRINONE INFUSION RESTARTED.
--- NOTE | 2018-07-13 13:22 | NUR ---
CHF CLINIC Discharge Instructions See e-MAR for any mediations given with this visit. Patient education given on disease process. Patient verbalized understanding. Previous labs reviewed. Patient discharged in stable condition with after care instructions and follow up appointment ON MONDAY. NOTE DIETER [id number], [id number] ADMIN BY ODALYS CULVER. ECHO COMPLETED
== END | disposition home or self-care (01) ==
LOC: Rad HDHVI 08:03
PROVIDERS: ATTEND Internal Medicine Cardiovascular Disease
DX: I11.0 Hypertensive heart disease with heart failure (principal); I50.43 Acute on chronic combined systolic (congestive) and diastolic (congestive) heart failure; I48.91 Unspecified atrial fibrillation; J44.9 Chronic obstructive pulmonary disease, unspecified; I25.2 Old myocardial infarction; I27.21 Secondary pulmonary arterial hypertension; M19.90 Unspecified osteoarthritis, unspecified site; E78.00 Pure hypercholesterolemia, unspecified; I25.10 Atherosclerotic heart disease of native coronary artery without angina pectoris; E83.40 Disorders of magnesium metabolism, unspecified; E11.9 Type 2 diabetes mellitus without complications; E78.5 Hyperlipidemia, unspecified; E43 Unspecified severe protein-calorie malnutrition; Z68.20 Body mass index [BMI] 20.0-20.9, adult; Z79.01 Long term (current) use of anticoagulants; Z87.891 Personal history of nicotine dependence; Z95.1 Presence of aortocoronary bypass graft; Z95.810 Presence of automatic (implantable) cardiac defibrillator; Z90.49 Acquired absence of other specified parts of digestive tract
CPT/HCPCS: 93306; 96365; 96366; G0463; J2260

== ENCOUNTER → 2018-07-16 | Outpatient (CLI) | payer MEDICARE ==
[2018-07-16] VITALS (7 sets, daily range): BP systolic 134–155; BP diastolic 61–74
[2018-07-16 12:11] LABS: BUN/Creatinine Ratio 27.5; Calcium 8.8 mg/dL (8.5-10.1); Magnesium 2.5 mg/dL (1.6-2.6); Potassium 4.2 mmol/L (3.5-5.1)
[2018-07-16 12:34] LABS: Basophils # (auto) 0.1 uL; Basophils % (auto) 1.1 % (0.0-2.0); Eosinophils # (auto) 0.2 uL; Eosinophils % (auto) 4.2 % (0.0-7.0); Hematocrit 34.3 % (41.0-53.0); Hemoglobin 11.4 g/dL (13.5-17.5); Lymphocytes # (auto) 0.8 uL; Lymphocytes % (auto) 13.1 % (10.0-50.0); Mean Corpuscular Hemoglobin 30.4 pg (28.0-32.0); Mean Corpuscular Hgb Conc. 33.2 g/dL (32.0-36.0); Mean Corpuscular Volume 91.4 fL (80.0-100.0); Monocytes # (auto) 0.4 uL; Monocytes % (auto) 6.6 % (0.0-12.0); Neutrophils # (auto) 4.4 uL; Nucleated Red Blood Cells % 0.1 %; Platelet Count (auto) 235 10^3/uL (140-450); Red Blood Cells 3.75 10^6/uL (4.5-5.90); White Blood Cell 5.9 10^3/uL (4.4-10.8)
--- NOTE | 2018-07-16 12:40 | NUR ---
IN TO CLINIC FOR SCHEDULED INFUSION. IV PLACED TO LEFT FOREARM BY SLOANE CULVER. IV insertion IV access obtained, via clean sterile technique by inserting 22 gauge catheter at [LEFT FA) after [1] attempt(s)BY SLOANE CULVER. IV secured properly. No trauma to site. Patient tolerated procedure well. Clinic Provider Clinic Provider into see pt with new orders received and carried out. USED FOR MILRINONE INFUSION AND SITE BENIGN POST INFUSION. VS WNL. TOLERATED WELL. Discharge Instructions See e-MAR for any mediations given with this visit. Patient education given on disease process. Patient verbalized understanding. Previous labs reviewed. Patient discharged in stable condition with after care instructions and follow up appointment FOR Monday07/20/18 MEDICATION ADMINISTRATION MILRINONE INFUSION AT 0.375 MCG/KG/MIN START AT 0824/STOP AT 1220 (7.05 ML/HR)
== END | disposition home or self-care (01) ==
LOC: CHF HDHVI 08:10
PROVIDERS: ATTEND Internal Medicine Cardiovascular Disease
DX: I11.0 Hypertensive heart disease with heart failure (principal); I50.42 Chronic combined systolic (congestive) and diastolic (congestive) heart failure; J44.9 Chronic obstructive pulmonary disease, unspecified; I25.10 Atherosclerotic heart disease of native coronary artery without angina pectoris; E78.00 Pure hypercholesterolemia, unspecified; E11.9 Type 2 diabetes mellitus without complications; M19.90 Unspecified osteoarthritis, unspecified site; I42.9 Cardiomyopathy, unspecified; I48.91 Unspecified atrial fibrillation; I70.0 Atherosclerosis of aorta; I25.2 Old myocardial infarction; E43 Unspecified severe protein-calorie malnutrition; E83.40 Disorders of magnesium metabolism, unspecified; I27.21 Secondary pulmonary arterial hypertension; D64.9 Anemia, unspecified; E78.5 Hyperlipidemia, unspecified; Z79.01 Long term (current) use of anticoagulants; Z79.899 Other long term (current) drug therapy; Z95.1 Presence of aortocoronary bypass graft; Z95.810 Presence of automatic (implantable) cardiac defibrillator; Z90.49 Acquired absence of other specified parts of digestive tract; Z95.5 Presence of coronary angioplasty implant and graft; Z87.891 Personal history of nicotine dependence
CPT/HCPCS: 36415; 80048; 83735; 83880; 85025; 96365; 96366; G0463; J2260

== ENCOUNTER → 2018-07-20 | Outpatient (CLI) | payer MEDICARE ==
[~2018-07-20] VITALS: Ht 30.5 cm; Wt 63.5 kg
[2018-07-20] VITALS (8 sets, daily range): BP systolic 126–156; BP diastolic 53–73
[~2018-07-20] MED LIST changes: +CYANOCOBALAMIN (B-12) 1000 MCG/1 ML VIAL IM ONE; +CYANOCOBALAMIN (B-12) 1000 MCG/1 ML VIAL ONE
--- NOTE | 2018-07-20 08:00 | NUR ---
IN TO CLINIC FOR SCHEDULED INFUSION. WITHOUT DISTRESS, NO OXYGEN IN USE. IV insertion IV access obtained, via clean sterile technique by inserting 22 gauge catheter at after attempt(s). IV secured properly. No trauma to site. Patient tolerated procedure well.
--- NOTE | 2018-07-20 08:10 | NUR ---
Clinic Provider Clinic Provider into see pt with new orders received and carried out. MILRINONE GTT AT 0.375 MCG/KG/MIN STARTED
--- NOTE | 2018-07-20 10:30 | NUR ---
VISITING WITH OTHER PATIENTS. AFFECT CHEERFUL AND WITHOUT DISTRESS.
--- NOTE | 2018-07-20 12:10 | NUR ---
INFUSION COMPLETED. TOLERATED WELL. VS WNL.
== END | disposition home or self-care (01) ==
LOC: CHF HDHVI 08:05
PROVIDERS: ATTEND Internal Medicine Cardiovascular Disease
DX: I11.0 Hypertensive heart disease with heart failure (principal); I50.42 Chronic combined systolic (congestive) and diastolic (congestive) heart failure; I25.10 Atherosclerotic heart disease of native coronary artery without angina pectoris; I48.91 Unspecified atrial fibrillation; R53.83 Other fatigue; J44.9 Chronic obstructive pulmonary disease, unspecified; I42.9 Cardiomyopathy, unspecified; I25.2 Old myocardial infarction; I70.0 Atherosclerosis of aorta; E78.5 Hyperlipidemia, unspecified; E78.00 Pure hypercholesterolemia, unspecified; E11.9 Type 2 diabetes mellitus without complications; M19.90 Unspecified osteoarthritis, unspecified site; Z79.899 Other long term (current) drug therapy; Z87.01 Personal history of pneumonia (recurrent); Z95.810 Presence of automatic (implantable) cardiac defibrillator; Z79.01 Long term (current) use of anticoagulants; Z87.891 Personal history of nicotine dependence; Z95.5 Presence of coronary angioplasty implant and graft
CPT/HCPCS: 96365; 96366; 96372; G0463; J2260; J3420

== ENCOUNTER → 2018-07-23 | Outpatient (CLI) | payer MEDICARE ==
[~2018-07-23] VITALS: Ht 30.5 cm; Wt 63.5 kg
[2018-07-23] VITALS (12 sets, daily range): BP systolic 126–155; BP diastolic 53–76
[~2018-07-23] MED LIST changes: -CYANOCOBALAMIN (B-12) 1000 MCG/1 ML VIAL IM ONE; -CYANOCOBALAMIN (B-12) 1000 MCG/1 ML VIAL ONE
== END | disposition home or self-care (01) ==
LOC: CHF HDHVI 08:09
PROVIDERS: ATTEND Internal Medicine Cardiovascular Disease
DX: I11.0 Hypertensive heart disease with heart failure (principal); I50.42 Chronic combined systolic (congestive) and diastolic (congestive) heart failure; I25.10 Atherosclerotic heart disease of native coronary artery without angina pectoris; J44.9 Chronic obstructive pulmonary disease, unspecified; E78.5 Hyperlipidemia, unspecified; I25.2 Old myocardial infarction; E78.00 Pure hypercholesterolemia, unspecified; E11.9 Type 2 diabetes mellitus without complications; I48.91 Unspecified atrial fibrillation; M19.90 Unspecified osteoarthritis, unspecified site; E87.5 Hyperkalemia; Z79.01 Long term (current) use of anticoagulants; Z79.899 Other long term (current) drug therapy; Z87.891 Personal history of nicotine dependence; Z95.810 Presence of automatic (implantable) cardiac defibrillator; Z95.1 Presence of aortocoronary bypass graft
CPT/HCPCS: 96365; 96366; G0463; J2260

== ENCOUNTER → 2018-07-27 | Outpatient (CLI) | payer MEDICARE ==
[2018-07-27] VITALS (8 sets, daily range): BP systolic 111–142; BP diastolic 50–71
[~2018-07-27] MED LIST changes: -MILRINONE 20MG/100ML 100 ML IV SCH
--- NOTE | 2018-07-27 13:00 | NUR ---
MILRINONE THERAPY TO PERIPHERAL IV. TOLERATED WELL IV SITE DCD AND BENIGN POST INFUSION. PT REMAINS WITHOUT DISTRESS OR DISCOMFORT DURING INFUSION. VISITING WITH OTHER PATIENTS OR DOZING DURING TREATMENT. SEE FREQUENT VITAL SIGNS. Discharge Instructions See e-MAR for any mediations given with this visit. Patient education given on disease process. Patient verbalized understanding. Previous labs reviewed. Patient discharged in stable condition with after care instructions and follow up appointment FOR Monday07/30/18. MEDICATION ADMINISTRATION MILRINONE GTT AT 0.375 MCG/KG/MIN START AT 0824/STOP AT 1225 (7.2 ML/HR)
== END | disposition home or self-care (01) ==
LOC: CHF HDHVI 08:12
PROVIDERS: ATTEND Internal Medicine Cardiovascular Disease
DX: I11.0 Hypertensive heart disease with heart failure (principal); I50.42 Chronic combined systolic (congestive) and diastolic (congestive) heart failure; I48.91 Unspecified atrial fibrillation; M19.90 Unspecified osteoarthritis, unspecified site; I25.2 Old myocardial infarction; I27.21 Secondary pulmonary arterial hypertension; I25.10 Atherosclerotic heart disease of native coronary artery without angina pectoris; I42.9 Cardiomyopathy, unspecified; J44.9 Chronic obstructive pulmonary disease, unspecified; E78.00 Pure hypercholesterolemia, unspecified; E11.9 Type 2 diabetes mellitus without complications; E43 Unspecified severe protein-calorie malnutrition; E78.5 Hyperlipidemia, unspecified; Z79.01 Long term (current) use of anticoagulants; Z95.810 Presence of automatic (implantable) cardiac defibrillator; Z87.891 Personal history of nicotine dependence; Z87.01 Personal history of pneumonia (recurrent); Z95.5 Presence of coronary angioplasty implant and graft; Z90.49 Acquired absence of other specified parts of digestive tract
CPT/HCPCS: 96365; 96366; G0463; J2260

== ENCOUNTER → 2018-07-30 | Outpatient (CLI) | payer MEDICARE ==
[2018-07-30] VITALS (10 sets, daily range): BP systolic 116–158; BP diastolic 48–69
--- NOTE | 2018-07-30 08:10 | NUR ---
IV insertion IV access obtained by Sandoval CULVER, via clean sterile technique by inserting 22 gauge catheter at RFA after 1 attempt(s). IV secured properly. No trauma to site. Patient tolerated procedure well.
[2018-07-30 12:17] LABS: Basophils # (auto) 0.1 uL; Basophils % (auto) 1.2 % (0.0-2.0); Eosinophils # (auto) 0.3 uL; Hematocrit 33.2 % (41.0-53.0); Lymphocytes # (auto) 0.7 uL; Lymphocytes % (auto) 12.1 % (10.0-50.0); Mean Corpuscular Hemoglobin 30.5 pg (28.0-32.0); Mean Corpuscular Hgb Conc. 33.2 g/dL (32.0-36.0); Mean Corpuscular Volume 91.8 fL (80.0-100.0); Monocytes # (auto) 0.5 uL; Monocytes % (auto) 7.7 % (0.0-12.0); Neutrophils # (auto) 4.5 uL; Nucleated Red Blood Cells % 0.2 %; Platelet Count (auto) 257 10^3/uL (140-450); Red Blood Cells 3.62 10^6/uL (4.5-5.90); Red Cell Distribution Width 15.5 % (11.8-14.3)
[2018-07-30 12:23] LABS: Potassium 3.8 mmol/L (3.5-5.1)
--- NOTE | 2018-07-30 12:36 | NUR ---
CHF CLINIC Discharge Instructions See e-MAR for any mediations given with this visit. Patient education given on disease process. Patient verbalized understanding. Previous labs reviewed. Patient discharged in stable condition with after care instructions and follow up appointment ON MONDAY. NOTE MILRINONE [id number] ADMIN BY SLOANE CULVER. LABS DRAWN
== END | disposition home or self-care (01) ==
LOC: CHF HDHVI 08:13
PROVIDERS: ATTEND Internal Medicine Cardiovascular Disease
DX: I11.0 Hypertensive heart disease with heart failure (principal); I50.42 Chronic combined systolic (congestive) and diastolic (congestive) heart failure; I25.10 Atherosclerotic heart disease of native coronary artery without angina pectoris; I48.91 Unspecified atrial fibrillation; D64.9 Anemia, unspecified; R94.4 Abnormal results of kidney function studies; E87.6 Hypokalemia; E78.00 Pure hypercholesterolemia, unspecified; E11.9 Type 2 diabetes mellitus without complications; M19.90 Unspecified osteoarthritis, unspecified site; J45.909 Unspecified asthma, uncomplicated; I25.2 Old myocardial infarction; I42.9 Cardiomyopathy, unspecified; E78.5 Hyperlipidemia, unspecified; I27.21 Secondary pulmonary arterial hypertension; J44.9 Chronic obstructive pulmonary disease, unspecified; Z87.891 Personal history of nicotine dependence; Z79.899 Other long term (current) drug therapy; Z79.01 Long term (current) use of anticoagulants; Z95.1 Presence of aortocoronary bypass graft; Z87.440 Personal history of urinary (tract) infections; Z95.810 Presence of automatic (implantable) cardiac defibrillator
CPT/HCPCS: 36415; 82565; 83880; 84132; 84520; 85025; 96365; 96366; G0463; J2260

== ENCOUNTER → 2018-08-03 | Outpatient (CLI) | payer MEDICARE ==
[~2018-08-03] VITALS: Ht 30.5 cm; Wt 64.0 kg
[2018-08-03] VITALS (10 sets, daily range): BP systolic 140–166; BP diastolic 54–78
--- NOTE | 2018-08-03 09:00 | NUR ---
MILRINONE INFUSION ONGOING. TOLERATING WELL VS WNL.
--- NOTE | 2018-08-03 11:00 | NUR ---
MILRINONE INFUSION ONGOING. TOLERATING WELL. WITHOUT COMPLAINT. WATCHING TV.
--- NOTE | 2018-08-03 12:14 | NUR ---
INFUSION COMPLETED. TOLERATED WELL. VS WNL. LEFT FORARM IV REMOVED AND SITE BENIGN POST INFUSION.
--- NOTE | 2018-08-03 12:39 | NUR ---
CHF Discharge Instructions See e-MAR for any mediations given with this visit. Patient education given on disease process. Patient verbalized understanding. Previous labs reviewed. Patient discharged in stable condition with after care instructions and follow up appointment. MEDICATION ADMINISTRATION MILRINONE GTT AT 0.375 MCG/KG/MIN (7.13 ML/HR) START AT 0814/STOP AT 1214
== END | disposition home or self-care (01) ==
LOC: CHF HDHVI 08:03
PROVIDERS: ATTEND Internal Medicine Cardiovascular Disease
DX: I11.0 Hypertensive heart disease with heart failure (principal); I50.42 Chronic combined systolic (congestive) and diastolic (congestive) heart failure; I25.10 Atherosclerotic heart disease of native coronary artery without angina pectoris; I42.9 Cardiomyopathy, unspecified; I70.0 Atherosclerosis of aorta; I25.2 Old myocardial infarction; I48.91 Unspecified atrial fibrillation; J44.9 Chronic obstructive pulmonary disease, unspecified; E78.5 Hyperlipidemia, unspecified; E78.00 Pure hypercholesterolemia, unspecified; E11.9 Type 2 diabetes mellitus without complications; M19.90 Unspecified osteoarthritis, unspecified site; Z79.01 Long term (current) use of anticoagulants; Z79.899 Other long term (current) drug therapy; Z87.891 Personal history of nicotine dependence; Z95.810 Presence of automatic (implantable) cardiac defibrillator; Z95.1 Presence of aortocoronary bypass graft; Z90.49 Acquired absence of other specified parts of digestive tract; Z87.01 Personal history of pneumonia (recurrent); Z95.5 Presence of coronary angioplasty implant and graft
CPT/HCPCS: 83880; 96365; 96366; G0463; J2260

== ENCOUNTER → 2018-08-06 | Outpatient (CLI) | payer MEDICARE ==
[2018-08-06] VITALS (9 sets, daily range): BP systolic 107–156; BP diastolic 50–81
[~2018-08-06] VITALS: Ht 30.5 cm; Wt 62.1 kg
[~2018-08-06] MED LIST changes: +MILRINONE 20MG/100ML 100 ML IV SCH
--- NOTE | 2018-08-06 08:00 | NUR ---
IN TO CLINIC FOR CHF TREATMENT WITH MILRINONE GTT. CHEERFUL AND ALERT WITHOUT DISTRESS.
--- NOTE | 2018-08-06 08:10 | NUR ---
IV insertion IV access obtained, via clean sterile technique by inserting 22 gauge catheter at after attempt(s). IV secured properly. No trauma to site. Patient tolerated procedure well. DENIES PAIN. Clinic Provider Clinic Provider into see pt with new orders received and carried out. MILRINONE gtt started at {0.375}mcg/kg/hr per MD order.
--- NOTE | 2018-08-06 09:00 | NUR ---
PT HAS INCREASED LASIX DOSE TO 40 MG Q AM AND 20 MG EVERY EVENING. REPORTS THAT HIS BREATHING IS SLIGHTLY BETTER. WILL MONITOR ONGOING BREATHING EFFORTS AND LABS.
--- NOTE | 2018-08-06 10:30 | NUR ---
SEE FREQUENT VITALS.
[2018-08-06 12:17] LABS: Potassium 3.9 mmol/L (3.5-5.1)
--- NOTE | 2018-08-06 12:51 | NUR ---
INFUSION COMPLETED. TOLERATED WELL. IV SITE BENIGN POST USE. Scheduled Whitney Cath Flush 20 gauge Go needle inserted using sterile technique in the upper chest. Whitney Cath flushed with 20 mL's of 0.9% NS followed by 500 units per 5mL's Heparin. Go Needle D/C'd with sterile occlusive dressing to site. Patient tolerated procedure well. See e-MAR for medications given during this visit.
== END | disposition home or self-care (01) ==
LOC: CHF HDHVI 08:10
PROVIDERS: ATTEND Internal Medicine Cardiovascular Disease
DX: I11.0 Hypertensive heart disease with heart failure (principal); I50.23 Acute on chronic systolic (congestive) heart failure; I50.32 Chronic diastolic (congestive) heart failure; J44.9 Chronic obstructive pulmonary disease, unspecified; E87.6 Hypokalemia; J90 Pleural effusion, not elsewhere classified; R91.8 Other nonspecific abnormal finding of lung field; I70.0 Atherosclerosis of aorta; R94.4 Abnormal results of kidney function studies; I25.10 Atherosclerotic heart disease of native coronary artery without angina pectoris; I48.91 Unspecified atrial fibrillation; I42.9 Cardiomyopathy, unspecified; I25.2 Old myocardial infarction; M19.90 Unspecified osteoarthritis, unspecified site; E78.5 Hyperlipidemia, unspecified; E11.9 Type 2 diabetes mellitus without complications; E43 Unspecified severe protein-calorie malnutrition; E78.00 Pure hypercholesterolemia, unspecified; I27.21 Secondary pulmonary arterial hypertension; Z87.891 Personal history of nicotine dependence; Z95.5 Presence of coronary angioplasty implant and graft; Z95.810 Presence of automatic (implantable) cardiac defibrillator; Z79.01 Long term (current) use of anticoagulants; Z90.49 Acquired absence of other specified parts of digestive tract; Z87.01 Personal history of pneumonia (recurrent)
CPT/HCPCS: 36415; 71046; 82565; 83880; 84132; 84520; 96365; 96366; G0463; J2260

== ENCOUNTER → 2018-08-10 | Outpatient (CLI) | payer MEDICARE ==
[2018-08-10] VITALS (10 sets, daily range): BP systolic 121–152; BP diastolic 57–80
[~2018-08-10] VITALS: Ht 30.5 cm; Wt 63.0 kg
[~2018-08-10] MED LIST changes: -MILRINONE 20MG/100ML 100 ML IV SCH
== END | disposition home or self-care (01) ==
LOC: CHF HDHVI 08:06
PROVIDERS: ATTEND Internal Medicine Cardiovascular Disease
DX: I11.0 Hypertensive heart disease with heart failure (principal); I50.42 Chronic combined systolic (congestive) and diastolic (congestive) heart failure; I48.91 Unspecified atrial fibrillation; I25.10 Atherosclerotic heart disease of native coronary artery without angina pectoris; I70.0 Atherosclerosis of aorta; I42.9 Cardiomyopathy, unspecified; I25.2 Old myocardial infarction; J44.9 Chronic obstructive pulmonary disease, unspecified; E11.9 Type 2 diabetes mellitus without complications; E78.5 Hyperlipidemia, unspecified; E78.00 Pure hypercholesterolemia, unspecified; Z87.891 Personal history of nicotine dependence; Z87.01 Personal history of pneumonia (recurrent); Z95.810 Presence of automatic (implantable) cardiac defibrillator; Z79.899 Other long term (current) drug therapy; Z95.1 Presence of aortocoronary bypass graft; Z90.49 Acquired absence of other specified parts of digestive tract
CPT/HCPCS: 96365; 96366; G0463; J2260

== ENCOUNTER → 2018-08-13 | Outpatient (CLI) | payer MEDICARE ==
[~2018-08-13] VITALS: Ht 30.5 cm; Wt 62.1 kg
[~2018-08-13] MED LIST changes: +MILRINONE 20MG/100ML 100 ML IV SCH
[2018-08-13 12:19] LABS: BUN/Creatinine Ratio 15.7; Calcium 8.2 mg/dL (8.5-10.1); Potassium 3.8 mmol/L (3.5-5.1)
[2018-08-13 12:26] VITALS: BP 136/76
== END | disposition home or self-care (01) ==
LOC: CHF HDHVI 08:03
PROVIDERS: ATTEND Internal Medicine Cardiovascular Disease
DX: I11.0 Hypertensive heart disease with heart failure (principal); I50.23 Acute on chronic systolic (congestive) heart failure; J44.9 Chronic obstructive pulmonary disease, unspecified; I50.32 Chronic diastolic (congestive) heart failure; E11.9 Type 2 diabetes mellitus without complications; I70.0 Atherosclerosis of aorta; I25.10 Atherosclerotic heart disease of native coronary artery without angina pectoris; I42.9 Cardiomyopathy, unspecified; I25.2 Old myocardial infarction; I48.91 Unspecified atrial fibrillation; E78.5 Hyperlipidemia, unspecified; E78.00 Pure hypercholesterolemia, unspecified; M19.90 Unspecified osteoarthritis, unspecified site; Z79.899 Other long term (current) drug therapy; Z87.891 Personal history of nicotine dependence; Z87.01 Personal history of pneumonia (recurrent); Z95.1 Presence of aortocoronary bypass graft; Z95.810 Presence of automatic (implantable) cardiac defibrillator; Z90.49 Acquired absence of other specified parts of digestive tract; Z79.01 Long term (current) use of anticoagulants
CPT/HCPCS: 36415; 80048; 83880; 96365; 96366; G0463; J2260

== ENCOUNTER → 2018-08-17 | Outpatient (CLI) | payer MEDICARE ==
[2018-08-17] VITALS (12 sets, daily range): BP systolic 98–152; BP diastolic 51–74
[~2018-08-17] MED LIST changes: -MILRINONE 20MG/100ML 100 ML IV SCH
--- NOTE | 2018-08-17 08:15 | NUR ---
IV insertion IV access obtained, via clean sterile technique by inserting 22 gauge catheter at RAC after 1 attempt(s). IV secured properly. No trauma to site. Patient tolerated procedure well.
--- NOTE | 2018-08-17 12:55 | NUR ---
CHF CLINIC Discharge Instructions See e-MAR for any mediations given with this visit. Patient education given on disease process. Patient verbalized understanding. Previous labs reviewed. Patient discharged in stable condition with after care instructions and follow up appointment ON MONDAY. NOTE MILRINONE INFUSION [id number] ADMIN BY ODALYS CULVER.
== END | disposition home or self-care (01) ==
LOC: CHF HDHVI 08:09
PROVIDERS: ATTEND Internal Medicine Cardiovascular Disease
DX: I11.0 Hypertensive heart disease with heart failure (principal); I50.42 Chronic combined systolic (congestive) and diastolic (congestive) heart failure; I48.91 Unspecified atrial fibrillation; I25.10 Atherosclerotic heart disease of native coronary artery without angina pectoris; J44.9 Chronic obstructive pulmonary disease, unspecified; I25.2 Old myocardial infarction; E78.00 Pure hypercholesterolemia, unspecified; E11.9 Type 2 diabetes mellitus without complications; M19.90 Unspecified osteoarthritis, unspecified site; I27.21 Secondary pulmonary arterial hypertension; E43 Unspecified severe protein-calorie malnutrition; E78.5 Hyperlipidemia, unspecified; Z90.49 Acquired absence of other specified parts of digestive tract; Z79.01 Long term (current) use of anticoagulants; Z79.899 Other long term (current) drug therapy; Z87.891 Personal history of nicotine dependence; Z95.5 Presence of coronary angioplasty implant and graft; Z95.1 Presence of aortocoronary bypass graft; Z87.01 Personal history of pneumonia (recurrent); Z95.810 Presence of automatic (implantable) cardiac defibrillator; Z87.440 Personal history of urinary (tract) infections
CPT/HCPCS: 96365; 96366; G0463; J2260

== ENCOUNTER → 2018-08-20 | Outpatient (CLI) | payer MEDICARE ==
[2018-08-20] VITALS (10 sets, daily range): BP systolic 119–156; BP diastolic 52–84
--- NOTE | 2018-08-20 08:00 | NUR ---
CHF PT TO CHF CLINIC FOR MILRINONE INFUSION AND LABS. PT ALERT ORIENTED 0 DISTRESS UPDATED ORDERS RECIEVED AND NOTED
--- NOTE | 2018-08-20 10:00 | NUR ---
CHF PT TOLERATING THERAPY WELL V/S STABLE
[2018-08-20 12:37] LABS: BUN/Creatinine Ratio 20.4; Basophils # (auto) 0.1 uL; Eosinophils # (auto) 0.3 uL; Eosinophils % (auto) 6.2 % (0.0-7.0); Hematocrit 33.9 % (41.0-53.0); Hemoglobin 11.3 g/dL (13.5-17.5); Lymphocytes # (auto) 0.7 uL; Lymphocytes % (auto) 16.7 % (10.0-50.0); Magnesium 2.6 mg/dL (1.6-2.6); Mean Corpuscular Hemoglobin 30.3 pg (28.0-32.0); Mean Corpuscular Hgb Conc. 33.2 g/dL (32.0-36.0); Mean Corpuscular Volume 91.2 fL (80.0-100.0); Monocytes # (auto) 0.4 uL; Monocytes % (auto) 8.7 % (0.0-12.0); Neutrophils # (auto) 2.8 uL; Neutrophils % (auto) 66.4 % (37.0-80.0); Nucleated Red Blood Cells % 0.1 %; Platelet Count (auto) 249 10^3/uL (140-450); Potassium 4.1 mmol/L (3.5-5.1); Red Blood Cells 3.72 10^6/uL (4.5-5.90); Red Cell Distribution Width 14.8 % (11.8-14.3); White Blood Cell 4.2 10^3/uL (4.4-10.8)
--- NOTE | 2018-08-20 12:40 | NUR ---
IV removal IV DC'd with sterile technique, catheter fully intact. Pressure dressing applied to site. Patient tolerated procedure well. Discharged with aftercare instructions per MD. NOTE:
--- NOTE | 2018-08-20 12:40 | NUR ---
IV insertion IV access obtained, via clean sterile technique by inserting 22 gauge catheter at after attempt(s). IV secured properly. No trauma to site. Patient tolerated procedure well. IV INSERTED BY ROSE CULVER
--- NOTE | 2018-08-20 12:55 | NUR ---
Discharge Instructions See e-MAR for any mediations given with this visit. Patient education given on disease process. Patient verbalized understanding. Previous labs reviewed. Patient discharged in stable condition with after care instructions and follow up appointment. MEDICATIONS 0825 START TIME MILRINONE DRIP 0.375MCG/KG 1230 STOP TIME
== END | disposition home or self-care (01) ==
LOC: CHF HDHVI 07:59
PROVIDERS: ATTEND Internal Medicine Cardiovascular Disease
DX: I11.0 Hypertensive heart disease with heart failure (principal); I50.42 Chronic combined systolic (congestive) and diastolic (congestive) heart failure; D64.9 Anemia, unspecified; E83.40 Disorders of magnesium metabolism, unspecified; I48.91 Unspecified atrial fibrillation; I25.10 Atherosclerotic heart disease of native coronary artery without angina pectoris; I25.2 Old myocardial infarction; I27.21 Secondary pulmonary arterial hypertension; J44.9 Chronic obstructive pulmonary disease, unspecified; E11.9 Type 2 diabetes mellitus without complications; E78.5 Hyperlipidemia, unspecified; E78.00 Pure hypercholesterolemia, unspecified; M19.90 Unspecified osteoarthritis, unspecified site; Z79.01 Long term (current) use of anticoagulants; Z90.49 Acquired absence of other specified parts of digestive tract; Z87.891 Personal history of nicotine dependence; Z79.899 Other long term (current) drug therapy; Z87.01 Personal history of pneumonia (recurrent); Z87.440 Personal history of urinary (tract) infections; Z95.810 Presence of automatic (implantable) cardiac defibrillator; Z95.1 Presence of aortocoronary bypass graft
CPT/HCPCS: 36415; 80048; 83735; 83880; 85025; 93701; 96365; 96366; G0463; J2260

== ENCOUNTER → 2018-08-24 | Outpatient (CLI) | payer MEDICARE ==
[~2018-08-24] VITALS: Ht 1 cm; Wt 62.6 kg
[~2018-08-24] MED LIST changes: +MILRINONE 20MG/100ML 100 ML IV SCH
--- NOTE | 2018-08-24 08:00 | NUR ---
CHF IN TO CLINIC FOR SCHEDULED INFUSION. AWAKE AND ALERT WITHOUT DISTRESS.
--- NOTE | 2018-08-24 08:30 | NUR ---
IV insertion IV access obtained, via clean sterile technique by inserting 22 gauge catheter at after attempt(s). IV secured properly. No trauma to site. Patient tolerated procedure well.
--- NOTE | 2018-08-24 08:30 | NUR ---
Clinic Provider Clinic Provider into see pt with new orders received and carried out. MILRINONE GTT AT 0.375 MCG/KG/MIN 96.99 ML/HR) Addendum: 08/24/18 at 1118 by ODALYS KELLER RN AL AMEND ABOVE NOTE(6.99 ML/HR)
[2018-08-24 09:00] VITALS: BP 141/62
[2018-08-24 09:15] VITALS: BP 141/62
[2018-08-24 09:30] VITALS: BP 148/67
[2018-08-24 09:45] VITALS: BP 154/73
[2018-08-24 10:30] VITALS: BP 147/71
--- NOTE | 2018-08-24 11:19 | NUR ---
VISITING WITH PATIENTS. AFFECT CHEERFUL AND PLEASANT. TOLERATING IV GTT WELL. VS WNL.
--- NOTE | 2018-08-24 12:30 | NUR ---
INFUSION COMPLETED. TOLERATED WELL. VS WNL.
[2018-08-24 13:00] VITALS: BP 150/87
--- NOTE | 2018-08-24 13:00 | NUR ---
RIGHT FOREARM IV DCD AND SITE BENIGN POST USE. Discharge Instructions See e-MAR for any mediations given with this visit. Patient education given on disease process. Patient verbalized understanding. Previous labs reviewed. Patient discharged in stable condition with after care instructions and follow up appointment FOR 08/28/18
== END | disposition home or self-care (01) ==
LOC: CHF HDHVI 08:20
PROVIDERS: ATTEND Internal Medicine Cardiovascular Disease
DX: I11.0 Hypertensive heart disease with heart failure (principal); I50.42 Chronic combined systolic (congestive) and diastolic (congestive) heart failure; J44.9 Chronic obstructive pulmonary disease, unspecified; I48.91 Unspecified atrial fibrillation; I25.10 Atherosclerotic heart disease of native coronary artery without angina pectoris; I25.2 Old myocardial infarction; I27.21 Secondary pulmonary arterial hypertension; E78.00 Pure hypercholesterolemia, unspecified; E78.5 Hyperlipidemia, unspecified; E11.9 Type 2 diabetes mellitus without complications; M19.90 Unspecified osteoarthritis, unspecified site; E43 Unspecified severe protein-calorie malnutrition; Z79.01 Long term (current) use of anticoagulants; Z95.5 Presence of coronary angioplasty implant and graft; Z79.899 Other long term (current) drug therapy; Z87.891 Personal history of nicotine dependence; Z87.01 Personal history of pneumonia (recurrent); Z87.440 Personal history of urinary (tract) infections; Z95.1 Presence of aortocoronary bypass graft; Z90.49 Acquired absence of other specified parts of digestive tract; Z95.810 Presence of automatic (implantable) cardiac defibrillator
CPT/HCPCS: 96365; 96366; G0463; J2260

== ENCOUNTER → 2018-08-27 | Outpatient (CLI) | payer MEDICARE ==
[2018-08-27] VITALS (8 sets, daily range): BP systolic 107–159; BP diastolic 56–88
[~2018-08-27] MED LIST changes: +CYANOCOBALAMIN (B-12) 1000 MCG/1 ML VIAL IM ONE; +CYANOCOBALAMIN (B-12) 1000 MCG/1 ML VIAL ONE
[2018-08-27 12:29] LABS: Basophils # (auto) 0.1 uL; Basophils % (auto) 1.9 % (0.0-2.0); Eosinophils # (auto) 0.3 uL; Eosinophils % (auto) 7.3 % (0.0-7.0); Hematocrit 33.7 % (41.0-53.0); Hemoglobin 11.3 g/dL (13.5-17.5); Lymphocytes # (auto) 0.9 uL; Lymphocytes % (auto) 18.9 % (10.0-50.0); Mean Corpuscular Hemoglobin 30.8 pg (28.0-32.0); Mean Corpuscular Hgb Conc. 33.5 g/dL (32.0-36.0); Mean Corpuscular Volume 91.9 fL (80.0-100.0); Monocytes # (auto) 0.4 uL; Neutrophils % (auto) 62.9 % (37.0-80.0); Nucleated Red Blood Cells % 0.2 %; Platelet Count (auto) 258 10^3/uL (140-450); Red Blood Cells 3.67 10^6/uL (4.5-5.90); Red Cell Distribution Width 15.6 % (11.8-14.3); White Blood Cell 4.8 10^3/uL (4.4-10.8)
[2018-08-27 12:33] LABS: Potassium 3.9 mmol/L (3.5-5.1)
[2018-08-27 12:41] LABS: Albumin 3.7 g/dL (3.4-5.0); BUN/Creatinine Ratio 15.2; Bilirubin, Total 0.9 mg/dL (0.2-1.0); Calcium 8.9 mg/dL (8.5-10.1); Magnesium 2.6 mg/dL (1.6-2.6)
--- NOTE | 2018-08-27 13:00 | NUR ---
IN TO CLINIC FOR SCHEDULED INFUSION. AWAKE AND ALERT WITHOUT DISTRESS. IV insertion IV access obtained, via clean sterile technique by inserting 22 gauge catheter at after attempt(s). IV secured properly. No trauma to site. Patient tolerated procedure well. Clinic Provider Clinic Provider into see pt with new orders received and carried out. MILRINONE INFUSION ADMINISTERED OVER 4 HOURS AND TOLERATED WELL. SEE FREQUENT VITAL SIGNS. AWAKE FOR ENTIRE INFUSION DURATION, VISITING WITH STAFF AND PATIENTS. Discharge Instructions See e-MAR for any mediations given with this visit. Patient education given on disease process. Patient verbalized understanding. Previous labs reviewed. Patient discharged in stable condition with after care instructions and follow up appointment FOR 08/31/18 MEDICATION ADMINISTRATION MILRINONE GTT AT 0.375 MCG/KG/MIN START AT 0830/STOP AT 1235 (6.99 ML/HR) VIT B12 1000 MCG IM TO LEFT DELTOID AT 0835
== END | disposition home or self-care (01) ==
LOC: CHF HDHVI 08:18
PROVIDERS: ATTEND Internal Medicine Cardiovascular Disease
DX: I11.0 Hypertensive heart disease with heart failure (principal); I50.23 Acute on chronic systolic (congestive) heart failure; I50.32 Chronic diastolic (congestive) heart failure; D64.9 Anemia, unspecified; E83.40 Disorders of magnesium metabolism, unspecified; I48.91 Unspecified atrial fibrillation; J44.9 Chronic obstructive pulmonary disease, unspecified; I25.10 Atherosclerotic heart disease of native coronary artery without angina pectoris; I42.9 Cardiomyopathy, unspecified; I25.2 Old myocardial infarction; I27.21 Secondary pulmonary arterial hypertension; E78.5 Hyperlipidemia, unspecified; E78.00 Pure hypercholesterolemia, unspecified; M19.90 Unspecified osteoarthritis, unspecified site; E11.9 Type 2 diabetes mellitus without complications; E43 Unspecified severe protein-calorie malnutrition; Z90.49 Acquired absence of other specified parts of digestive tract; Z79.01 Long term (current) use of anticoagulants; Z79.899 Other long term (current) drug therapy; Z87.891 Personal history of nicotine dependence; Z87.01 Personal history of pneumonia (recurrent); Z95.5 Presence of coronary angioplasty implant and graft; Z95.1 Presence of aortocoronary bypass graft; Z95.810 Presence of automatic (implantable) cardiac defibrillator
CPT/HCPCS: 36415; 80053; 83735; 83880; 85025; 96365; 96366; 96372; G0463; J2260; J3420

== ENCOUNTER → 2018-08-31 | Outpatient (CLI) | payer MEDICARE ==
[~2018-08-31] MED LIST changes: -CYANOCOBALAMIN (B-12) 1000 MCG/1 ML VIAL IM ONE; -CYANOCOBALAMIN (B-12) 1000 MCG/1 ML VIAL ONE; -MILRINONE 20MG/100ML 100 ML IV SCH
[2018-08-31 13:00] VITALS: BP 132/68
--- NOTE | 2018-08-31 13:00 | NUR ---
IN FOR SCHEDULED INFUSION. AFFECT CHEERFUL AND WITHOUT DISTRESS OR DISCOMFORT. CLINIC PROVIDER CONSULTED AND ORDERS RECIEVED AND CARRIED OUT. IV PLACED TO RIGHT FOREARM. SITE USED FOR INFUSION AND BENIGN POST INFUSION. SEE FREQUENT VITALS. PT REMAINED WITHIN LINE OF VISION OF NURSING FOR DURATION OF INFUSION. TOLERATED WELL. VISITED AND INTERMITTENTLY DOZED. Discharge Instructions See e-MAR for any mediations given with this visit. Patient education given on disease process. Patient verbalized understanding. Previous labs reviewed. Patient discharged in stable condition with after care instructions and follow up appointment FOR Monday09/03/18. MEDICATION ADMINISTRATION MILRINONE GTT AT 0.375 MCG/KG/MIN START AT 0815/STOP AT 1215 (6.99 ML/HR)
== END | disposition home or self-care (01) ==
LOC: CHF HDHVI 08:07
PROVIDERS: ATTEND Internal Medicine Cardiovascular Disease
DX: I11.0 Hypertensive heart disease with heart failure (principal); I50.42 Chronic combined systolic (congestive) and diastolic (congestive) heart failure; I48.91 Unspecified atrial fibrillation; I25.10 Atherosclerotic heart disease of native coronary artery without angina pectoris; I42.9 Cardiomyopathy, unspecified; J44.9 Chronic obstructive pulmonary disease, unspecified; I25.2 Old myocardial infarction; I27.21 Secondary pulmonary arterial hypertension; E78.00 Pure hypercholesterolemia, unspecified; E11.9 Type 2 diabetes mellitus without complications; E78.5 Hyperlipidemia, unspecified; M19.90 Unspecified osteoarthritis, unspecified site; E43 Unspecified severe protein-calorie malnutrition; Z79.899 Other long term (current) drug therapy; Z87.01 Personal history of pneumonia (recurrent); Z87.891 Personal history of nicotine dependence; Z87.440 Personal history of urinary (tract) infections; Z79.01 Long term (current) use of anticoagulants; Z95.1 Presence of aortocoronary bypass graft; Z90.49 Acquired absence of other specified parts of digestive tract; Z95.810 Presence of automatic (implantable) cardiac defibrillator
CPT/HCPCS: 96365; 96366; G0463; J2260

== ENCOUNTER → 2018-09-03 | Outpatient (CLI) | payer MEDICARE ==
[~2018-09-03] VITALS: Ht 1 cm; Wt 0.5 kg
[2018-09-03] VITALS (9 sets, daily range): BP systolic 125–156; BP diastolic 53–73
[~2018-09-03] MED LIST changes: +FUROSEMIDE 40 MG/4 ML VIAL IV ONE; +FUROSEMIDE 40 MG/4 ML VIAL ONE; +MILRINONE 20MG/100ML 100 ML IV SCH; +POTASSIUM CHL 10 Meq TABLET PO ONE; +POTASSIUM CHL 20 Meq TABLET PO ONE
--- NOTE | 2018-09-03 08:00 | NUR ---
CHF PT ARRIVED AT CHF CLINIC FOR MILRINONE DRIP THERAPY. PT A/O X 4 0 DISTRESS, AMBULATORY, V/S OBTAINED
--- NOTE | 2018-09-03 08:05 | NUR ---
IV insertion IV access obtained, via clean sterile technique by inserting 22 gauge catheter at after attempt(s). IV secured properly. No trauma to site. Patient tolerated procedure well.
--- NOTE | 2018-09-03 10:35 | NUR ---
MEDICATED WITH DIURETIC PER ORDER
[2018-09-03 11:49] LABS: BUN/Creatinine Ratio 29.9; Calcium 8.7 mg/dL (8.5-10.1); Potassium 3.8 mmol/L (3.5-5.1)
--- NOTE | 2018-09-03 12:20 | NUR ---
IV removal IV DC'd with sterile technique, catheter fully intact. Pressure dressing applied to site. Patient tolerated procedure well. Discharged with aftercare instructions per . NOTE: Addendum: 09/03/18 at 1451 by MARLEN BARAHONA RN RN VT IV DC'D AT 6485
--- NOTE | 2018-09-03 12:30 | NUR ---
Discharge Instructions See e-MAR for any mediations given with this visit. Patient education given on disease process. Patient verbalized understanding. Previous labs reviewed. Patient discharged in stable condition with after care instructions and follow up appointment. MEDICATIONS 0819 START TIME DOBUTAMINE DRIP 0.375 MCG/KG/MIN 1230 STOP TIME DOBUTAMINE DRIP 1035 LASIX 40 MG IVP X 1 1045N POTASSIUM 40 MEQ PO X 1 Addendum: 09/03/18 at 1450 by MARLEN BARAHONA RN RN NM DISCHARGED AT 1255 Addendum: 10/17/18 at 1255 by MARLEN BARAHONA RN RN NM ADDENDUM FOR 09/03/18 0819 START TIME MILRINONE DRIP 0.375/MCG/KG/MIN 1230 STOP TIME MILRINONE DRIP
== END | disposition home or self-care (01) ==
LOC: CHF HDHVI 08:00
PROVIDERS: ATTEND Internal Medicine Cardiovascular Disease
DX: I11.0 Hypertensive heart disease with heart failure (principal); I50.32 Chronic diastolic (congestive) heart failure; I50.23 Acute on chronic systolic (congestive) heart failure; E55.9 Vitamin D deficiency, unspecified; R06.00 Dyspnea, unspecified; J44.9 Chronic obstructive pulmonary disease, unspecified; I25.10 Atherosclerotic heart disease of native coronary artery without angina pectoris; I48.91 Unspecified atrial fibrillation; I25.2 Old myocardial infarction; E78.5 Hyperlipidemia, unspecified; E78.00 Pure hypercholesterolemia, unspecified; E11.9 Type 2 diabetes mellitus without complications; M19.90 Unspecified osteoarthritis, unspecified site; E43 Unspecified severe protein-calorie malnutrition; Z90.49 Acquired absence of other specified parts of digestive tract; Z79.01 Long term (current) use of anticoagulants; Z79.899 Other long term (current) drug therapy; Z87.891 Personal history of nicotine dependence; Z87.01 Personal history of pneumonia (recurrent); Z95.1 Presence of aortocoronary bypass graft; Z95.810 Presence of automatic (implantable) cardiac defibrillator; Z95.5 Presence of coronary angioplasty implant and graft
CPT/HCPCS: 36415; 80048; 82306; 83880; 96365; 96366; 96375; G0463; J1940; J2260

== ENCOUNTER → 2018-09-07 | Outpatient (CLI) | payer MEDICARE ==
[2018-09-07] VITALS (9 sets, daily range): BP systolic 113–139; BP diastolic 53–70
[~2018-09-07] MED LIST changes: -FUROSEMIDE 40 MG/4 ML VIAL IV ONE; -FUROSEMIDE 40 MG/4 ML VIAL ONE; -POTASSIUM CHL 10 Meq TABLET PO ONE; -POTASSIUM CHL 20 Meq TABLET PO ONE
--- NOTE | 2018-09-07 08:00 | NUR ---
IN TO CLINIC FOR SCHEDULED INFUSION. AFFECT CHEERFUL AND COOPERATIVE. VS WNL
--- NOTE | 2018-09-07 08:15 | NUR ---
IV insertion IV access obtained, via clean sterile technique by inserting 22 gauge catheter at after attempt(s). IV secured properly. No trauma to site. Patient tolerated procedure well.. Clinic Provider Clinic Provider into see pt with new orders received and carried out. MILRINONE GTT AT 0.375 MCG/KG/MIN 6.93 ML/HR.
--- NOTE | 2018-09-07 12:35 | NUR ---
CHF CLINIC Discharge Instructions See e-MAR for any mediations given with this visit. Patient education given on disease process. Patient verbalized understanding. Previous labs reviewed. Patient discharged in stable condition with after care instructions and follow up appointment ON MONDAY. NOTE MILRINONE INFUSION [id number] ADMIN BY ODALYS CULVER
== END | disposition home or self-care (01) ==
LOC: CHF HDHVI 08:09
PROVIDERS: ATTEND Internal Medicine Cardiovascular Disease
DX: I11.0 Hypertensive heart disease with heart failure (principal); I50.42 Chronic combined systolic (congestive) and diastolic (congestive) heart failure; I25.10 Atherosclerotic heart disease of native coronary artery without angina pectoris; J44.9 Chronic obstructive pulmonary disease, unspecified; I25.2 Old myocardial infarction; I27.21 Secondary pulmonary arterial hypertension; E78.5 Hyperlipidemia, unspecified; E78.00 Pure hypercholesterolemia, unspecified; M19.90 Unspecified osteoarthritis, unspecified site; E43 Unspecified severe protein-calorie malnutrition; Z90.49 Acquired absence of other specified parts of digestive tract; Z79.01 Long term (current) use of anticoagulants; Z79.899 Other long term (current) drug therapy; Z87.891 Personal history of nicotine dependence; Z87.01 Personal history of pneumonia (recurrent); Z87.440 Personal history of urinary (tract) infections; Z95.1 Presence of aortocoronary bypass graft; Z95.810 Presence of automatic (implantable) cardiac defibrillator
CPT/HCPCS: 96365; 96366; G0463; J2260

== ENCOUNTER → 2018-09-10 | Outpatient (CLI) | payer MEDICARE ==
[2018-09-10] VITALS (7 sets, daily range): BP systolic 111–137; BP diastolic 46–75
--- NOTE | 2018-09-10 08:00 | NUR ---
CHF CLINIC--ARRIVAL NOTE PT IS ALERT ORIENTED X4, ARRIVED TO CHF CLINIC , DENIES CHEST PAIN 0/10, PRE SET OF VITAL SIGS AND BODY WEIGHT ARE TAKEN AND RECORDED.
--- NOTE | 2018-09-10 08:05 | NUR ---
IV insertion IV access obtained, via clean sterile technique by inserting 22 gauge catheter at after attempt(s). IV secured properly. No trauma to site. Patient tolerated procedure well.
--- NOTE | 2018-09-10 11:52 | NUR ---
PATIENT LEFT TO SEE DR CARVALHO FOR FOLLOW UP, AND APPOINTMENT MADE WITH DR DESAI/ ENT SPECIALIST.
--- NOTE | 2018-09-10 13:00 | NUR ---
Discharge Instructions See e-MAR for any mediations given with this visit. Patient education given on disease process. Patient verbalized understanding. Previous labs reviewed. Patient discharged in stable condition with after care instructions and follow up appointment. START TIME OF MILRINONE DRIP AT 0813 STOP TIME OF MILRINONE DRIP AT 1250
[2018-09-10 13:32] LABS: Potassium 4.1 mmol/L (3.5-5.1)
== END | disposition home or self-care (01) ==
LOC: CHF HDHVI 08:10
PROVIDERS: ATTEND Internal Medicine Cardiovascular Disease
DX: I11.0 Hypertensive heart disease with heart failure (principal); I50.23 Acute on chronic systolic (congestive) heart failure; I50.32 Chronic diastolic (congestive) heart failure; E87.6 Hypokalemia; R94.4 Abnormal results of kidney function studies; E11.9 Type 2 diabetes mellitus without complications; J44.9 Chronic obstructive pulmonary disease, unspecified; E78.5 Hyperlipidemia, unspecified; E78.00 Pure hypercholesterolemia, unspecified; I27.21 Secondary pulmonary arterial hypertension; M19.90 Unspecified osteoarthritis, unspecified site; E43 Unspecified severe protein-calorie malnutrition; I25.2 Old myocardial infarction; Z79.899 Other long term (current) drug therapy; Z79.01 Long term (current) use of anticoagulants; Z87.891 Personal history of nicotine dependence; Z87.440 Personal history of urinary (tract) infections; Z87.01 Personal history of pneumonia (recurrent); Z95.1 Presence of aortocoronary bypass graft; Z95.810 Presence of automatic (implantable) cardiac defibrillator; Z90.49 Acquired absence of other specified parts of digestive tract; Z95.5 Presence of coronary angioplasty implant and graft
CPT/HCPCS: 36415; 82565; 83880; 84132; 84520; 96365; 96366; G0463; J2260

== ENCOUNTER → 2018-09-14 | Outpatient (CLI) | payer MEDICARE ==
[2018-09-14] VITALS (9 sets, daily range): BP systolic 117–136; BP diastolic 48–64
[~2018-09-14] MED LIST changes: -MILRINONE 20MG/100ML 100 ML IV SCH
--- NOTE | 2018-09-14 08:00 | NUR ---
CHF PT ARRIVED AT THE [facility] FOR MILRINONE INFUSION. A/O X 3. NO DISTRESS NOTED.
--- NOTE | 2018-09-14 08:15 | NUR ---
IV insertion IV access obtained, via clean sterile technique by inserting 22 gauge catheter at RIGHT WRIST after 1 attempt(s). IV secured properly. No trauma to site. Patient tolerated well.
--- NOTE | 2018-09-14 08:20 | NUR ---
Clinic Provider Clinic Provider into see pt with new orders received and carried out.
--- NOTE | 2018-09-14 08:20 | NUR ---
MILRINONE INFUSION STARTED. 0.375 MCG/KG/MIN
--- NOTE | 2018-09-14 11:45 | NUR ---
PT TOLERATING INFUSION WELL. RESTING COMFORTABLY IN CHAIR, WATCHING TV. A/O X 3. WILL CONTINUE TO MONITOR.
--- NOTE | 2018-09-14 12:45 | NUR ---
CHF TREATMENT COMPLETED. TOLERATED WELL. IV SITE DDCD AND SITE BENIGN POST INFUSION. WITHOUT DISTRESS OR DISCOMFORT. Discharge Instructions See e-MAR for any mediations given with this visit. Patient education given on disease process. Patient verbalized understanding. Previous labs reviewed. Patient discharged in stable condition with after care instructions and follow up appointment FOR 09/17/18 MEDICATION ADMINISTRATION MILRINONE GTT AT 0.375 MCG/KG/MIN START AT 0822/STOP AT 1220 (6.96 ML/HR)
== END | disposition home or self-care (01) ==
LOC: CHF HDHVI 08:02
PROVIDERS: ATTEND Internal Medicine Cardiovascular Disease
DX: I11.0 Hypertensive heart disease with heart failure (principal); I50.42 Chronic combined systolic (congestive) and diastolic (congestive) heart failure; E78.00 Pure hypercholesterolemia, unspecified; I25.10 Atherosclerotic heart disease of native coronary artery without angina pectoris; I25.2 Old myocardial infarction; I48.91 Unspecified atrial fibrillation; I27.21 Secondary pulmonary arterial hypertension; J44.9 Chronic obstructive pulmonary disease, unspecified; E78.5 Hyperlipidemia, unspecified; M19.90 Unspecified osteoarthritis, unspecified site; E11.9 Type 2 diabetes mellitus without complications; E43 Unspecified severe protein-calorie malnutrition; Z79.01 Long term (current) use of anticoagulants; Z87.891 Personal history of nicotine dependence; Z87.440 Personal history of urinary (tract) infections; Z87.01 Personal history of pneumonia (recurrent); Z95.1 Presence of aortocoronary bypass graft; Z90.49 Acquired absence of other specified parts of digestive tract; Z95.5 Presence of coronary angioplasty implant and graft; Z95.810 Presence of automatic (implantable) cardiac defibrillator
CPT/HCPCS: 96365; 96366; G0463; J2260

== ENCOUNTER → 2018-09-17 | Outpatient (CLI) | payer MEDICARE ==
[2018-09-17] VITALS (9 sets, daily range): BP systolic 148–160; BP diastolic 62–83
[~2018-09-17] MED LIST changes: +MILRINONE 20MG/100ML 100 ML IV SCH
--- NOTE | 2018-09-17 08:05 | NUR ---
IN TO CLINIC FOR SCHEDULED INFUSION. AFFECT CHEERFUL AND COOPERATIVE. VS WNL.
--- NOTE | 2018-09-17 08:14 | NUR ---
IV insertion IV access obtained, via clean sterile technique by inserting 22 gauge catheter at [RIGHT WRIST after [1] attempt(s). IV secured properly. No trauma to site. Patient tolerated procedure well.
--- NOTE | 2018-09-17 08:18 | NUR ---
START MILRINONE GTT AT 0.375 MCG/KG/MIN AT 6.97 ML/HR
--- NOTE | 2018-09-17 08:54 | NUR ---
TOLERATING INFUSION WELL. WITHOUT COMPLAINT. VS WNL.
--- NOTE | 2018-09-17 09:30 | NUR ---
TOLERATING INFUSION WELL. WITHOUT DISTRESS.
--- NOTE | 2018-09-17 12:26 | NUR ---
INFUSION COMPLETED. TOLERATED WELL. WITHOUT DISTRESS. REMAINED AWAKE DURING INFUSION TODAY. VISITING.
--- NOTE | 2018-09-17 12:50 | NUR ---
CHF IV SITE BENIGN POST INFUSION. Discharge Instructions See e-MAR for any mediations given with this visit. Patient education given on disease process. Patient verbalized understanding. Previous labs reviewed. Patient discharged in stable condition with after care instructions and follow up appointment FOR 09/21/18 MEDICATION ADMINISTRATION MILRINONE GTT AT 0.375 MCG/KG/MIN START AT 0815/STOP AT 1226 (6.96 ML/HR)
== END | disposition home or self-care (01) ==
LOC: CHF HDHVI 08:00
PROVIDERS: ATTEND Internal Medicine Cardiovascular Disease
DX: I11.0 Hypertensive heart disease with heart failure (principal); I50.9 Heart failure, unspecified; J44.9 Chronic obstructive pulmonary disease, unspecified; I25.10 Atherosclerotic heart disease of native coronary artery without angina pectoris; I50.42 Chronic combined systolic (congestive) and diastolic (congestive) heart failure; E78.5 Hyperlipidemia, unspecified; I25.2 Old myocardial infarction; E11.9 Type 2 diabetes mellitus without complications; M19.90 Unspecified osteoarthritis, unspecified site; I48.91 Unspecified atrial fibrillation; Z95.810 Presence of automatic (implantable) cardiac defibrillator; Z87.891 Personal history of nicotine dependence; Z87.01 Personal history of pneumonia (recurrent); Z95.1 Presence of aortocoronary bypass graft; Z90.49 Acquired absence of other specified parts of digestive tract; Z79.899 Other long term (current) drug therapy; Z79.01 Long term (current) use of anticoagulants
CPT/HCPCS: 96365; 96366; G0463; J2260

== ENCOUNTER → 2018-09-21 | Outpatient (CLI) | payer MEDICARE ==
[2018-09-21] VITALS (10 sets, daily range): BP systolic 141–165; BP diastolic 63–78
[~2018-09-21] MED LIST changes: -MILRINONE 20MG/100ML 100 ML IV SCH
== END | disposition home or self-care (01) ==
LOC: CHF HDHVI 08:04
PROVIDERS: ATTEND Internal Medicine Cardiovascular Disease
DX: I11.0 Hypertensive heart disease with heart failure (principal); I50.42 Chronic combined systolic (congestive) and diastolic (congestive) heart failure; I25.10 Atherosclerotic heart disease of native coronary artery without angina pectoris; J44.9 Chronic obstructive pulmonary disease, unspecified; E78.5 Hyperlipidemia, unspecified; I25.2 Old myocardial infarction; E11.9 Type 2 diabetes mellitus without complications; E78.00 Pure hypercholesterolemia, unspecified; I48.91 Unspecified atrial fibrillation; M19.90 Unspecified osteoarthritis, unspecified site; E43 Unspecified severe protein-calorie malnutrition; Z90.49 Acquired absence of other specified parts of digestive tract; Z79.01 Long term (current) use of anticoagulants; Z79.899 Other long term (current) drug therapy; Z95.1 Presence of aortocoronary bypass graft; Z87.01 Personal history of pneumonia (recurrent); Z95.810 Presence of automatic (implantable) cardiac defibrillator; Z87.440 Personal history of urinary (tract) infections; Z95.5 Presence of coronary angioplasty implant and graft
CPT/HCPCS: 96365; 96366; G0463; J2260

== ENCOUNTER → 2018-09-24 | Outpatient (CLI) | payer MEDICARE ==
[2018-09-24] VITALS (11 sets, daily range): BP systolic 115–159; BP diastolic 53–79
[~2018-09-24] MED LIST changes: +MILRINONE 20MG/100ML 100 ML IV SCH
--- NOTE | 2018-09-24 08:15 | NUR ---
IV insertion IV access obtained, via clean sterile technique by inserting 22 gauge catheter at after attempt(s). IV secured properly. No trauma to site. Patient tolerated procedure well.
--- NOTE | 2018-09-24 08:20 | NUR ---
CHF PT ARRIVED AT [facility] FOR MILRINONE THERAPY SESSION. ORDERS RECIEVED AND NOTED. VITAL SIGNS OBTAINED 0 DISTRESS.
--- NOTE | 2018-09-24 12:15 | NUR ---
IV removal IV DC'd with sterile technique, catheter fully intact. Pressure dressing applied to site. Patient tolerated procedure well. Discharged with aftercare instructions per MD. NOTE:
--- NOTE | 2018-09-24 12:35 | NUR ---
Discharge Instructions See e-MAR for any mediations given with this visit. Patient education given on disease process. Patient verbalized understanding. Previous labs reviewed. Patient discharged in stable condition with after care instructions and follow up appointment. MEDICATIONS 0820 START TIME MILRINONE DRIP 1225 STOP TIME MILRINONE DRIP
[2018-09-24 13:42] LABS: Potassium 3.9 mmol/L (3.5-5.1)
[2018-09-24 13:51] LABS: BUN/Creatinine Ratio 17.5; Calcium 8.6 mg/dL (8.5-10.1)
[2018-09-24 14:16] LABS: Basophils # (auto) 0.1 uL; Basophils % (auto) 1.5 % (0.0-2.0); Eosinophils # (auto) 0.3 uL; Eosinophils % (auto) 6.5 % (0.0-7.0); Hematocrit 33.3 % (41.0-53.0); Hemoglobin 10.9 g/dL (13.5-17.5); Lymphocytes # (auto) 0.9 uL; Lymphocytes % (auto) 17.4 % (10.0-50.0); Mean Corpuscular Hemoglobin 30.3 pg (28.0-32.0); Mean Corpuscular Hgb Conc. 32.8 g/dL (32.0-36.0); Mean Corpuscular Volume 92.3 fL (80.0-100.0); Monocytes # (auto) 0.4 uL; Monocytes % (auto) 8.7 % (0.0-12.0); Neutrophils # (auto) 3.4 uL; Neutrophils % (auto) 65.9 % (37.0-80.0); Nucleated Red Blood Cells % 0.3 %; Platelet Count (auto) 273 10^3/uL (140-450); Red Blood Cells 3.61 10^6/uL (4.5-5.90); Red Cell Distribution Width 14.9 % (11.8-14.3); White Blood Cell 5.1 10^3/uL (4.4-10.8)
== END | disposition home or self-care (01) ==
LOC: CHF HDHVI 08:08
PROVIDERS: ATTEND Internal Medicine Cardiovascular Disease
DX: I11.0 Hypertensive heart disease with heart failure (principal); I50.42 Chronic combined systolic (congestive) and diastolic (congestive) heart failure; D64.9 Anemia, unspecified; J44.9 Chronic obstructive pulmonary disease, unspecified; E78.5 Hyperlipidemia, unspecified; I48.91 Unspecified atrial fibrillation; I25.2 Old myocardial infarction; I25.10 Atherosclerotic heart disease of native coronary artery without angina pectoris; E43 Unspecified severe protein-calorie malnutrition; I27.21 Secondary pulmonary arterial hypertension; E78.00 Pure hypercholesterolemia, unspecified; M19.90 Unspecified osteoarthritis, unspecified site; E11.9 Type 2 diabetes mellitus without complications; Z79.01 Long term (current) use of anticoagulants; Z79.899 Other long term (current) drug therapy; Z87.440 Personal history of urinary (tract) infections; Z87.01 Personal history of pneumonia (recurrent); Z87.891 Personal history of nicotine dependence; Z95.810 Presence of automatic (implantable) cardiac defibrillator; Z95.1 Presence of aortocoronary bypass graft; Z90.49 Acquired absence of other specified parts of digestive tract
CPT/HCPCS: 36415; 80048; 83880; 85025; 96365; 96366; G0463; J2260

== ENCOUNTER → 2018-09-28 | Outpatient (CLI) | payer MEDICARE ==
[~2018-09-28] MED LIST changes: -MILRINONE 20MG/100ML 100 ML IV SCH
--- NOTE | 2018-09-28 08:15 | NUR ---
IV insertion IV access obtained by Chrissie CULVER, via clean sterile technique by inserting 22 gauge catheter at RFA after 1 attempt(s). IV secured properly. No trauma to site. Patient tolerated procedure well.
[2018-09-28 08:20] VITALS: BP 103/47
--- NOTE | 2018-09-28 08:20 | NUR ---
START MILRINONE GTT AT 0.375 MCG/KG/MIN.
[2018-09-28 08:40] VITALS: BP 102/44
[2018-09-28 09:00] VITALS: BP 110/46
[2018-09-28 09:30] VITALS: BP 117/51
--- NOTE | 2018-09-28 10:31 | NUR ---
INFUSION ONGOING. TOLERATING WELL. VS WNL. AFFECT AWAKE AND VISITING WITH OTHER PATIENTS.
--- NOTE | 2018-09-28 12:10 | NUR ---
INFUSION STOPPED PER PT HAS AN APPOINTMENT TO GO TO BY 1300. VS WNL. TOLERATED WELL.
[2018-09-28 12:26] VITALS: BP 105/52
--- NOTE | 2018-09-28 12:26 | NUR ---
CHF IV SITE TO RIGHT FOREARM DCD. TOLERATED WELL. VS WNL. Discharge Instructions See e-MAR for any mediations given with this visit. Patient education given on disease process. Patient verbalized understanding. Previous labs reviewed. Patient discharged in stable condition with after care instructions and follow up appointment FOR Monday10/01/18.
== END | disposition home or self-care (01) ==
LOC: CHF HDHVI 08:25
PROVIDERS: ATTEND Internal Medicine Cardiovascular Disease
DX: I11.0 Hypertensive heart disease with heart failure (principal); I50.42 Chronic combined systolic (congestive) and diastolic (congestive) heart failure; I25.10 Atherosclerotic heart disease of native coronary artery without angina pectoris; M19.90 Unspecified osteoarthritis, unspecified site; J44.9 Chronic obstructive pulmonary disease, unspecified; E78.5 Hyperlipidemia, unspecified; E78.00 Pure hypercholesterolemia, unspecified; I27.21 Secondary pulmonary arterial hypertension; E43 Unspecified severe protein-calorie malnutrition; E11.9 Type 2 diabetes mellitus without complications; I25.2 Old myocardial infarction; I48.91 Unspecified atrial fibrillation; Z79.01 Long term (current) use of anticoagulants; Z79.899 Other long term (current) drug therapy; Z87.891 Personal history of nicotine dependence; Z87.440 Personal history of urinary (tract) infections; Z90.49 Acquired absence of other specified parts of digestive tract; Z87.01 Personal history of pneumonia (recurrent); Z95.5 Presence of coronary angioplasty implant and graft; Z95.810 Presence of automatic (implantable) cardiac defibrillator; Z95.1 Presence of aortocoronary bypass graft
CPT/HCPCS: 96365; 96366; G0463; J2260

== ENCOUNTER → 2018-10-01 | Outpatient (CLI) | payer MEDICARE ==
[2018-10-01] VITALS (11 sets, daily range): BP systolic 103–150; BP diastolic 45–69
[~2018-10-01] MED LIST changes: +MILRINONE 20MG/100ML 100 ML IV SCH
--- NOTE | 2018-10-01 07:03 | NUR ---
CHF PT ARRIVED AT [facility] CLINIC FOR THERAPY ALERT ORIENTED 0 DISTRESS. VITAL SIGNS OBTAINED
--- NOTE | 2018-10-01 08:00 | NUR ---
IV insertion IV access obtained, via clean sterile technique by inserting gauge catheter at after 1 attempt(s). IV secured properly. No trauma to site. Patient tolerated procedure well.
--- NOTE | 2018-10-01 12:30 | NUR ---
IV removal IV DC'd with sterile technique, catheter fully intact. Pressure dressing applied to site. Patient tolerated procedure well. Discharged with aftercare instructions per MD. NOTE:
--- NOTE | 2018-10-01 12:33 | NUR ---
Discharge Instructions See e-MAR for any mediations given with this visit. Patient education given on disease process. Patient verbalized understanding. Previous labs reviewed. Patient discharged in stable condition with after care instructions and follow up appointment. START TIME 0807 MILRINONE DRIP STOP TIME 1207 MILRINONE DRIP
== END | disposition home or self-care (01) ==
LOC: CHF HDHVI 07:57
PROVIDERS: ATTEND Internal Medicine Cardiovascular Disease
DX: I11.0 Hypertensive heart disease with heart failure (principal); I50.42 Chronic combined systolic (congestive) and diastolic (congestive) heart failure; I25.10 Atherosclerotic heart disease of native coronary artery without angina pectoris; J44.9 Chronic obstructive pulmonary disease, unspecified; I70.0 Atherosclerosis of aorta; E78.5 Hyperlipidemia, unspecified; I25.2 Old myocardial infarction; E78.00 Pure hypercholesterolemia, unspecified; I48.91 Unspecified atrial fibrillation; M19.90 Unspecified osteoarthritis, unspecified site; I42.9 Cardiomyopathy, unspecified; Z90.49 Acquired absence of other specified parts of digestive tract; Z79.01 Long term (current) use of anticoagulants; Z79.899 Other long term (current) drug therapy; Z87.891 Personal history of nicotine dependence; Z87.01 Personal history of pneumonia (recurrent); Z95.1 Presence of aortocoronary bypass graft; Z95.810 Presence of automatic (implantable) cardiac defibrillator; Z95.5 Presence of coronary angioplasty implant and graft
CPT/HCPCS: 96365; 96366; G0463; J2260

== ENCOUNTER → 2018-10-05 | Outpatient (CLI) | payer MEDICARE ==
[2018-10-05] VITALS (9 sets, daily range): BP systolic 118–151; BP diastolic 51–75
[~2018-10-05] MED LIST changes: -MILRINONE 20MG/100ML 100 ML IV SCH
--- NOTE | 2018-10-05 13:00 | NUR ---
IV removal IV DC'd with sterile technique, catheter fully intact. Pressure dressing applied to site. Patient tolerated procedure well.
--- NOTE | 2018-10-05 13:18 | NUR ---
CHF CLINIC Discharge Instructions See e-MAR for any mediations given with this visit. Patient education given on disease process. Patient verbalized understanding. Previous labs reviewed. Patient discharged in stable condition with after care instructions and follow up appointment NEXT MONDAY. NOTE MILRINONE INFUSION [id number] ADMIN BY SLOANE CULVER
== END | disposition home or self-care (01) ==
LOC: CHF HDHVI 08:21
PROVIDERS: ATTEND Internal Medicine Cardiovascular Disease
DX: I11.0 Hypertensive heart disease with heart failure (principal); I50.42 Chronic combined systolic (congestive) and diastolic (congestive) heart failure; I70.0 Atherosclerosis of aorta; I25.10 Atherosclerotic heart disease of native coronary artery without angina pectoris; I42.9 Cardiomyopathy, unspecified; I48.91 Unspecified atrial fibrillation; E11.9 Type 2 diabetes mellitus without complications; J44.9 Chronic obstructive pulmonary disease, unspecified; E78.5 Hyperlipidemia, unspecified; I25.2 Old myocardial infarction; E78.00 Pure hypercholesterolemia, unspecified; M19.90 Unspecified osteoarthritis, unspecified site; Z90.49 Acquired absence of other specified parts of digestive tract; Z79.01 Long term (current) use of anticoagulants; Z79.899 Other long term (current) drug therapy; Z87.891 Personal history of nicotine dependence; Z95.1 Presence of aortocoronary bypass graft; Z87.01 Personal history of pneumonia (recurrent); Z95.810 Presence of automatic (implantable) cardiac defibrillator; Z95.5 Presence of coronary angioplasty implant and graft
CPT/HCPCS: 83880; 96365; 96366; G0463; J2260

== ENCOUNTER → 2018-10-08 | Outpatient (CLI) | payer MEDICARE ==
[~2018-10-08] VITALS: Ht 30.5 cm; Wt 61.2 kg
[~2018-10-08] MED LIST changes: +DOBUTamine 1000MCG/ML 250 ML IV ONE; -MILRINONE 20MG/100ML 100 ML IV ONE; +SODIUM CHLORIDE 0.9% 1,000 ML IV SCH
--- NOTE | 2018-10-08 07:58 | NUR ---
PT. TO CHF CLINIC FOR EVAL. AND TX. PT. WITH NOTABLE CHANGE IN BLOOD PRESSURE DROP, 87/41, 70, 93/41, 70 ON LEFT. PT. HAS NOT TAKEN ANY AM MEDS, AND STAES HE HAS BEEN HAVING PROBLEMS WITH VISION OVER THE WEEKEND. NEW ORDERS RECEIVED FROM DR. MCGRATH FOR CHANGE TO DOBUTAMINE INFUSION WITH TKO .9NS DURING TIME IN CLINIC. SEE NSG ASSESS. ORDERS RECEIVED AND CARRIED OUT.
--- NOTE | 2018-10-08 08:10 | NUR ---
IV insertion IV access obtained, via clean sterile technique by inserting 20 gauge catheter at after attempt(s). IV secured properly. No trauma to site. Patient tolerated procedure well. STAT LABS DRAWN AND SENT.
--- NOTE | 2018-10-08 08:14 | NUR ---
Clinic Provider Clinic Provider into see pt with new orders received and carried out. Dobutamine gtt started at {3}mcg/kg/hr per MD order.
--- NOTE | 2018-10-08 08:20 | NUR ---
MEDS: .9NS STARTED AT 30CC/HR PER MD ORDER.
[2018-10-08 08:30] VITALS: BP 96/46
--- NOTE | 2018-10-08 08:30 | NUR ---
COMFORT: B/P 96/46, 70, 16. PT. WITH NO C/O AT THIS TIME.
[2018-10-08 08:45] VITALS: BP 109/47
[2018-10-08 08:57] LABS: Potassium 3.9 mmol/L (3.5-5.1)
[2018-10-08 09:00] VITALS: BP 135/68
[2018-10-08 09:00] LABS: Calcium 8.6 mg/dL (8.5-10.1); Magnesium 2.4 mg/dL (1.6-2.6)
[2018-10-08 09:04] LABS: BUN/Creatinine Ratio 12.3
[2018-10-08 09:30] VITALS: BP 138/63
[2018-10-08 10:00] VITALS: BP 149/69
--- NOTE | 2018-10-08 11:20 | NUR ---
Discharge Instructions See e-MAR for any mediations given with this visit. Patient education given on disease process. Patient verbalized understanding. Previous labs reviewed. Patient discharged in stable condition with after care instructions and follow up appointment. MEDICATIONS 0814 START TIME DOBUTAMINE 3 MCG/KG/MIN 1115 STOP TIME DOBUTAMINE 0900 NS a TKO 100 ML IV X 1
--- NOTE | 2018-10-08 11:20 | NUR ---
IV removal IV DC'd with sterile technique, catheter fully intact. Pressure dressing applied to site. Patient tolerated procedure well. Discharged with aftercare instructions per MD. NOTE:
[2018-10-08 11:55] VITALS: BP 130/62
== END | disposition home or self-care (01) ==
LOC: CHF HDHVI 07:54
PROVIDERS: ATTEND Internal Medicine Cardiovascular Disease
DX: I25.10 Atherosclerotic heart disease of native coronary artery without angina pectoris (principal); I11.0 Hypertensive heart disease with heart failure; I50.42 Chronic combined systolic (congestive) and diastolic (congestive) heart failure; I95.9 Hypotension, unspecified; I42.8 Other cardiomyopathies; E83.40 Disorders of magnesium metabolism, unspecified; I70.0 Atherosclerosis of aorta; I25.2 Old myocardial infarction; I48.91 Unspecified atrial fibrillation; E78.5 Hyperlipidemia, unspecified; E11.9 Type 2 diabetes mellitus without complications; E78.00 Pure hypercholesterolemia, unspecified; M19.90 Unspecified osteoarthritis, unspecified site; Z79.01 Long term (current) use of anticoagulants; Z87.891 Personal history of nicotine dependence; Z95.1 Presence of aortocoronary bypass graft; Z95.810 Presence of automatic (implantable) cardiac defibrillator; Z95.5 Presence of coronary angioplasty implant and graft
CPT/HCPCS: 36415; 80048; 83735; 83880; 96365; 96366; G0463; J1250; 96360; 96361

== ENCOUNTER → 2018-10-12 | Outpatient (CLI) | payer MEDICARE ==
[2018-10-12] VITALS (8 sets, daily range): BP systolic 124–151; BP diastolic 46–63
[~2018-10-12] VITALS: Ht 180.3 cm; Wt 61.2 kg
[~2018-10-12] MED LIST changes: -SODIUM CHLORIDE 0.9% 1,000 ML IV SCH
--- NOTE | 2018-10-12 08:00 | NUR ---
IN TO CLINIC FOR CHF AND SCHEDULED INFUSION. AFFECT CHEERFUL AND WITHOUT DISTRESS. VS WNL.
--- NOTE | 2018-10-12 08:13 | NUR ---
IV insertion IV access obtained, via clean sterile technique by inserting 22 gauge catheter at after attempt(s). IV secured properly. No trauma to site. Patient tolerated procedure well. Clinic Provider Clinic Provider into see pt with new orders received and carried out. Dobutamine gtt started at {4}mcg/kg/hr per MD order.
--- NOTE | 2018-10-12 09:00 | NUR ---
DOBUTAMINE GTT ONGOING AT 4 MCG/KG/MIN. TOLERATING WELL. WITHOUT DISTRESS OR DISCOMFORT.
--- NOTE | 2018-10-12 09:30 | NUR ---
ONGOING DOBUTAMINE GTT. TOLERATING WELL.
--- NOTE | 2018-10-12 11:15 | NUR ---
INFUSION COMPLETED. TOLERATED WELL. WITHOUT DISTRESS OR DISCOMFORT. IV removal IV DC'd with sterile technique, catheter fully intact. Pressure dressing applied to site. Patient tolerated procedure well.
--- NOTE | 2018-10-12 11:17 | NUR ---
Discharge Instructions See e-MAR for any mediations given with this visit. Patient education given on disease process. Patient verbalized understanding. Previous labs reviewed. Patient discharged in stable condition with after care instructions and follow up appointment FOR Monday10/15/18
== END | disposition home or self-care (01) ==
LOC: CHF HDHVI 07:39
PROVIDERS: ATTEND Internal Medicine Cardiovascular Disease
DX: I11.0 Hypertensive heart disease with heart failure (principal); I50.42 Chronic combined systolic (congestive) and diastolic (congestive) heart failure; J44.9 Chronic obstructive pulmonary disease, unspecified; I25.10 Atherosclerotic heart disease of native coronary artery without angina pectoris; E78.5 Hyperlipidemia, unspecified; I25.2 Old myocardial infarction; E78.00 Pure hypercholesterolemia, unspecified; E11.9 Type 2 diabetes mellitus without complications; I48.91 Unspecified atrial fibrillation; I27.21 Secondary pulmonary arterial hypertension; M19.90 Unspecified osteoarthritis, unspecified site; E43 Unspecified severe protein-calorie malnutrition; Z79.01 Long term (current) use of anticoagulants; Z95.810 Presence of automatic (implantable) cardiac defibrillator; Z87.891 Personal history of nicotine dependence; Z95.5 Presence of coronary angioplasty implant and graft; Z87.01 Personal history of pneumonia (recurrent); Z87.440 Personal history of urinary (tract) infections; Z95.1 Presence of aortocoronary bypass graft; Z90.49 Acquired absence of other specified parts of digestive tract; Z79.899 Other long term (current) drug therapy
CPT/HCPCS: 96365; 96366; G0463; J1250

== ENCOUNTER → 2018-10-15 | Outpatient (CLI) | payer MEDICARE ==
[2018-10-15] VITALS (9 sets, daily range): BP systolic 116–170; BP diastolic 43–75
[~2018-10-15] MED LIST changes: +DOBUTamine 1000MCG/ML 250 ML IV SCH
--- NOTE | 2018-10-15 08:05 | NUR ---
CHF PT ARRIVED AT THE CLINIC ALERT AND ORIENTED, 0 DISTRESS OR PAIN. PT VERBALIZED HE WAS ALITTLE TIRED THIS WEEKEND. UPDATED ORDERS RECIEVED AND NOTED.
--- NOTE | 2018-10-15 08:10 | NUR ---
IV insertion IV access obtained, via clean sterile technique by inserting 22 gauge catheter at after attempt(s). IV secured properly. No trauma to site. Patient tolerated procedure well. LABS SENT
--- NOTE | 2018-10-15 11:17 | NUR ---
IV removal IV DC'd with sterile technique, catheter fully intact. Pressure dressing applied to site. Patient tolerated procedure well. Discharged with aftercare instructions per MD. NOTE:
--- NOTE | 2018-10-15 11:18 | NUR ---
Discharge Instructions See e-MAR for any mediations given with this visit. Patient education given on disease process. Patient verbalized understanding. Previous labs reviewed. Patient discharged in stable condition with after care instructions and follow up appointment. MEDICATIONS 0815 START TIME DOBUTAMINE 1115 STOP TIME DOBUTAMINE DRIP
--- NOTE | 2018-10-15 11:18 | NUR ---
IV removal IV DC'd with sterile technique, catheter fully intact. Pressure dressing applied to site. Patient tolerated procedure well. Discharged with aftercare instructions per MD. NOTE: Addendum: 10/15/18 at 1131 by MARLEN BARAHONA RN RN VT DUPLICATE CHARTING
[2018-10-15 12:34] LABS: Basophils # (auto) 0 uL; Basophils % (auto) 0.9 % (0.0-2.0); Eosinophils # (auto) 0.3 uL; Eosinophils % (auto) 4.6 % (0.0-7.0); Hematocrit 35.5 % (41.0-53.0); Hemoglobin 11.8 g/dL (13.5-17.5); Lymphocytes # (auto) 0.8 uL; Lymphocytes % (auto) 14.6 % (10.0-50.0); Mean Corpuscular Hemoglobin 30.5 pg (28.0-32.0); Mean Corpuscular Hgb Conc. 33.1 g/dL (32.0-36.0); Mean Corpuscular Volume 92.2 fL (80.0-100.0); Monocytes # (auto) 0.4 uL; Monocytes % (auto) 7.8 % (0.0-12.0); Neutrophils % (auto) 72.1 % (37.0-80.0); Nucleated Red Blood Cells % 0.3 %; Platelet Count (auto) 262 10^3/uL (140-450); Red Blood Cells 3.85 10^6/uL (4.5-5.90); Red Cell Distribution Width 14.9 % (11.8-14.3); White Blood Cell 5.5 10^3/uL (4.4-10.8)
[2018-10-15 13:14] LABS: Potassium 4.3 mmol/L (3.5-5.1)
[2018-10-15 13:28] LABS: BUN/Creatinine Ratio 23.4; Calcium 8.8 mg/dL (8.5-10.1); Magnesium 2.5 mg/dL (1.6-2.6)
== END | disposition home or self-care (01) ==
LOC: CHF HDHVI 08:12
PROVIDERS: ATTEND Internal Medicine Cardiovascular Disease
DX: I11.0 Hypertensive heart disease with heart failure (principal); I50.42 Chronic combined systolic (congestive) and diastolic (congestive) heart failure; D64.9 Anemia, unspecified; E83.40 Disorders of magnesium metabolism, unspecified; I25.10 Atherosclerotic heart disease of native coronary artery without angina pectoris; J44.9 Chronic obstructive pulmonary disease, unspecified; E78.5 Hyperlipidemia, unspecified; I25.2 Old myocardial infarction; E11.9 Type 2 diabetes mellitus without complications; I48.91 Unspecified atrial fibrillation; I27.21 Secondary pulmonary arterial hypertension; E78.00 Pure hypercholesterolemia, unspecified; M19.90 Unspecified osteoarthritis, unspecified site; E43 Unspecified severe protein-calorie malnutrition; Z79.01 Long term (current) use of anticoagulants; Z90.49 Acquired absence of other specified parts of digestive tract; Z79.899 Other long term (current) drug therapy; Z87.891 Personal history of nicotine dependence; Z87.01 Personal history of pneumonia (recurrent); Z87.440 Personal history of urinary (tract) infections; Z95.1 Presence of aortocoronary bypass graft; Z95.5 Presence of coronary angioplasty implant and graft
CPT/HCPCS: 36415; 80048; 83735; 83880; 85025; 96365; 96366; G0463; J1250

== ENCOUNTER → 2018-10-19 | Outpatient (CLI) | payer MEDICARE ==
[2018-10-19] VITALS (7 sets, daily range): BP systolic 134–163; BP diastolic 49–67
[~2018-10-19] MED LIST changes: +CYANOCOBALAMIN (B-12) 1000 MCG/1 ML VIAL IM ONE; +CYANOCOBALAMIN (B-12) 1000 MCG/1 ML VIAL ONE; -DOBUTamine 1000MCG/ML 250 ML IV SCH
--- NOTE | 2018-10-19 11:30 | NUR ---
COMPLETED INFUSION THERAPY. WITHOUT DISTRESS OR DISCOMFORT. IV TO LEFT FOREARM DCD. SITE BENIGN POST USE. VS WNL. Discharge Instructions See e-MAR for any mediations given with this visit. Patient education given on disease process. Patient verbalized understanding. Previous labs reviewed. Patient discharged in stable condition with after care instructions and follow up appointment FOR Monday10/22/18 MEDICATION ADMINISTRATION DOBUTAMINE GTT AT 5 MCG/KG/MIN START AT 0814/STOP AT 1120 (18.35 ML/HR) VIT B12 1000 MCG IM AT LEFT DELTOID 1124
== END | disposition home or self-care (01) ==
LOC: CHF HDHVI 08:06
PROVIDERS: ATTEND Internal Medicine Cardiovascular Disease
DX: I11.0 Hypertensive heart disease with heart failure (principal); I50.42 Chronic combined systolic (congestive) and diastolic (congestive) heart failure; I25.10 Atherosclerotic heart disease of native coronary artery without angina pectoris; J44.9 Chronic obstructive pulmonary disease, unspecified; I25.2 Old myocardial infarction; E11.9 Type 2 diabetes mellitus without complications; M19.90 Unspecified osteoarthritis, unspecified site; Z90.49 Acquired absence of other specified parts of digestive tract; Z79.01 Long term (current) use of anticoagulants; Z79.899 Other long term (current) drug therapy; Z87.891 Personal history of nicotine dependence; Z87.01 Personal history of pneumonia (recurrent); Z95.1 Presence of aortocoronary bypass graft; Z95.810 Presence of automatic (implantable) cardiac defibrillator
CPT/HCPCS: 96365; 96366; 96372; G0463; J1250; J3420

== ENCOUNTER → 2018-10-22 | Outpatient (CLI) | payer MEDICARE ==
[2018-10-22] VITALS (8 sets, daily range): BP systolic 126–168; BP diastolic 59–76
[~2018-10-22] MED LIST changes: -CYANOCOBALAMIN (B-12) 1000 MCG/1 ML VIAL IM ONE; -CYANOCOBALAMIN (B-12) 1000 MCG/1 ML VIAL ONE
--- NOTE | 2018-10-22 08:00 | NUR ---
CHF PT ARRIVED TO CHF CLINIC ALERT ORIENTED 0 DISTRESS. V/S OBTAINED
--- NOTE | 2018-10-22 08:10 | NUR ---
IV insertion IV access obtained, via clean sterile technique by inserting gauge catheter at after attempt(s). IV secured properly. No trauma to site. Patient tolerated procedure well.
--- NOTE | 2018-10-22 11:25 | NUR ---
IV removal IV DC'd with sterile technique, catheter fully intact. Pressure dressing applied to site. Patient tolerated procedure well. Discharged with aftercare instructions per MD. NOTE:
--- NOTE | 2018-10-22 11:32 | NUR ---
Discharge Instructions See e-MAR for any mediations given with this visit. Patient education given on disease process. Patient verbalized understanding. Previous labs reviewed. Patient discharged in stable condition with after care instructions and follow up appointment. MEDICATIONS' 0820 START TIME DOBUTAMINE DRIP 5MCG/KG/MIN 1120 STOP TIME DOBUTAMINE DRIP 5MCG/KG.MIN
[2018-10-22 12:40] LABS: Potassium 3.9 mmol/L (3.5-5.1)
== END | disposition home or self-care (01) ==
LOC: CHF HDHVI 08:08
PROVIDERS: ATTEND Internal Medicine Cardiovascular Disease
DX: I11.0 Hypertensive heart disease with heart failure (principal); I50.9 Heart failure, unspecified; J44.9 Chronic obstructive pulmonary disease, unspecified; I25.10 Atherosclerotic heart disease of native coronary artery without angina pectoris; I50.42 Chronic combined systolic (congestive) and diastolic (congestive) heart failure; E78.5 Hyperlipidemia, unspecified; I25.2 Old myocardial infarction; E11.9 Type 2 diabetes mellitus without complications; M19.90 Unspecified osteoarthritis, unspecified site; Z95.810 Presence of automatic (implantable) cardiac defibrillator; Z90.49 Acquired absence of other specified parts of digestive tract; Z79.01 Long term (current) use of anticoagulants; Z79.899 Other long term (current) drug therapy; Z87.891 Personal history of nicotine dependence; Z87.01 Personal history of pneumonia (recurrent); Z95.1 Presence of aortocoronary bypass graft
CPT/HCPCS: 36415; 82565; 83880; 84132; 84520; 96365; 96366; G0463; J1250

== ENCOUNTER → 2018-10-26 | Outpatient (CLI) | payer MEDICARE ==
[~2018-10-26] VITALS: Ht 30.5 cm; Wt 62.2 kg
[2018-10-26] VITALS (9 sets, daily range): BP systolic 134–177; BP diastolic 50–83
[~2018-10-26] MED LIST changes: +FUROSEMIDE 40 MG/4 ML VIAL IV ONE; +FUROSEMIDE 40 MG/4 ML VIAL ONE
--- NOTE | 2018-10-26 08:10 | NUR ---
IV insertion IV access obtained by Chrissie CULVER, via clean sterile technique by inserting 22 gauge catheter at RFA after 2 attempt(s). IV secured properly. No trauma to site. Patient tolerated procedure well.
--- NOTE | 2018-10-26 12:14 | NUR ---
IV removal IV DC'd with sterile technique, catheter fully intact. Pressure dressing applied to site. Patient tolerated procedure well.
--- NOTE | 2018-10-26 12:15 | NUR ---
CHF CLINIC Discharge Instructions See e-MAR for any mediations given with this visit. Patient education given on disease process. Patient verbalized understanding. Previous labs reviewed. Patient discharged in stable condition with after care instructions and follow up appointment. NOTE DOBUTAMINE [id number] ADMIN BY ODALYS CULVER/ARIK CULVER LASIX IVP ADMIN BY ODALYS CULVER.
== END | disposition home or self-care (01) ==
LOC: CHF HDHVI 08:16
PROVIDERS: ATTEND Internal Medicine Cardiovascular Disease
DX: I11.0 Hypertensive heart disease with heart failure (principal); I50.42 Chronic combined systolic (congestive) and diastolic (congestive) heart failure; I25.10 Atherosclerotic heart disease of native coronary artery without angina pectoris; J44.9 Chronic obstructive pulmonary disease, unspecified; E78.5 Hyperlipidemia, unspecified; I25.2 Old myocardial infarction; E78.00 Pure hypercholesterolemia, unspecified; E11.9 Type 2 diabetes mellitus without complications; I48.91 Unspecified atrial fibrillation; M19.90 Unspecified osteoarthritis, unspecified site; Z90.49 Acquired absence of other specified parts of digestive tract; Z79.01 Long term (current) use of anticoagulants; Z79.899 Other long term (current) drug therapy; Z87.891 Personal history of nicotine dependence; Z95.1 Presence of aortocoronary bypass graft; Z95.810 Presence of automatic (implantable) cardiac defibrillator; Z95.5 Presence of coronary angioplasty implant and graft; Z87.01 Personal history of pneumonia (recurrent); Z87.440 Personal history of urinary (tract) infections
CPT/HCPCS: 96365; 96366; 96375; G0463; J1250; J1940

== ENCOUNTER → 2018-10-29 | Outpatient (CLI) | payer MEDICARE ==
[2018-10-29] VITALS (9 sets, daily range): BP systolic 141–176; BP diastolic 56–82
[~2018-10-29] VITALS: Ht 30.5 cm; Wt 61.2 kg
[~2018-10-29] MED LIST changes: -FUROSEMIDE 40 MG/4 ML VIAL IV ONE; -FUROSEMIDE 40 MG/4 ML VIAL ONE
--- NOTE | 2018-10-29 08:00 | NUR ---
CHF PT ARRIVED AT THE CHF CLINIC, A/O X3 0 DISTRESS, V/S OBTAINED. UPDATED ORDERS RECEIVED AND NOTED
--- NOTE | 2018-10-29 08:10 | NUR ---
IV insertion IV access obtained, via clean sterile technique by inserting 22 gauge catheter at after attempt(s). IV secured properly. No trauma to site. Patient tolerated procedure well.
--- NOTE | 2018-10-29 10:15 | NUR ---
CHF PT ARRIVED AT THE CHF CLINIC FOR CT ABDOMEN PELVIS. ALERT ORIENTED X 3, LABS DRAWN, VITAL SIGNS OBTAINED 0 DISTRESS NOTED
--- NOTE | 2018-10-29 11:05 | NUR ---
IV removal IV DC'd with sterile technique, catheter fully intact. Pressure dressing applied to site. Patient tolerated procedure well. Discharged with aftercare instructions per MD. NOTE:
--- NOTE | 2018-10-29 11:09 | NUR ---
DOBUTAMINE TURNED TO OFF AFTER ONGOING HTN.
--- NOTE | 2018-10-29 11:10 | NUR ---
Discharge Instructions See e-MAR for any mediations given with this visit. Patient education given on disease process. Patient verbalized understanding. Previous labs reviewed. Patient discharged in stable condition with after care instructions and follow up appointment. MEDICATIONS 0815 START TIME DOBUTAMINE DRIP 1105 STOP TIME DOBUTAMINE DRIP
[2018-10-29 13:04] LABS: Potassium 4.2 mmol/L (3.5-5.1)
[2018-10-29 13:13] LABS: Albumin 3.4 g/dL (3.4-5.0); BUN/Creatinine Ratio 22.1; Bilirubin, Total 0.6 mg/dL (0.2-1.0); Calcium 8.8 mg/dL (8.5-10.1); Total Protein 7.6 g/dL (6.4-8.2)
== END | disposition home or self-care (01) ==
LOC: CHF HDHVI 08:07
PROVIDERS: ATTEND Internal Medicine Cardiovascular Disease
DX: I11.0 Hypertensive heart disease with heart failure (principal); I50.9 Heart failure, unspecified; I10 Essential (primary) hypertension; I25.10 Atherosclerotic heart disease of native coronary artery without angina pectoris; J44.9 Chronic obstructive pulmonary disease, unspecified; E78.5 Hyperlipidemia, unspecified; I25.2 Old myocardial infarction; M19.90 Unspecified osteoarthritis, unspecified site; I27.21 Secondary pulmonary arterial hypertension; I50.42 Chronic combined systolic (congestive) and diastolic (congestive) heart failure; E11.9 Type 2 diabetes mellitus without complications; Z90.49 Acquired absence of other specified parts of digestive tract; Z79.01 Long term (current) use of anticoagulants; Z79.899 Other long term (current) drug therapy; Z87.891 Personal history of nicotine dependence; Z87.01 Personal history of pneumonia (recurrent); Z95.1 Presence of aortocoronary bypass graft; Z95.810 Presence of automatic (implantable) cardiac defibrillator; Z95.5 Presence of coronary angioplasty implant and graft
CPT/HCPCS: 36415; 80053; 83880; 96365; 96366; G0463; J1250

== ENCOUNTER → 2018-11-02 | Outpatient (CLI) | payer MEDICARE ==
[2018-11-02] VITALS (9 sets, daily range): BP systolic 146–166; BP diastolic 61–123
--- NOTE | 2018-11-02 08:00 | NUR ---
IN TO CLINIC FOR SCHEDULED INFUSION. ALERT WITHOUT DISTRESS OR DISCOMFORT. BP HYPERTENSIVE. MEDICATIONS BROUGHT FROM HOME. Clinic Provider Clinic Provider into see pt with new orders received and carried out.
--- NOTE | 2018-11-02 08:20 | NUR ---
START DOBUTAMINE GTT AT 5 MCG/KG/MIN
--- NOTE | 2018-11-02 08:23 | NUR ---
MEDICATION RECONCILIATION DONE. DISCUSSED TIMES AND REGIMEN. REPEAT BACK INSTRUCTIONS OBTAINED. TOOK HOME MEDICATION OF ENTRESTO 2 TABS AND COREG 3.125 OW FOR HIGH BP.
--- NOTE | 2018-11-02 09:09 | NUR ---
BP IMPROVED S/P HOME MEDICATION ADMINISTRATION. CONTINUE TO MONITOR.
--- NOTE | 2018-11-02 10:42 | NUR ---
BP 166/75. CONTINUE TO MONITOR.
--- NOTE | 2018-11-02 11:35 | NUR ---
IV removal IV DC'd with sterile technique, catheter fully intact. Pressure dressing applied to site. Patient tolerated procedure well.
--- NOTE | 2018-11-02 11:40 | NUR ---
CHF CLINIC Discharge Instructions See e-MAR for any mediations given with this visit. Patient education given on disease process. Patient verbalized understanding. Previous labs reviewed. Patient discharged in stable condition with after care instructions and follow up appointment. Note Dobutamine [id number] admin by Chrissie CULVER. Patient given sample doses of Entresto 48/51 and patient verbalized understanding adjusting new dose.
== END | disposition home or self-care (01) ==
LOC: CHF HDHVI 08:09
PROVIDERS: ATTEND Internal Medicine Cardiovascular Disease
DX: I11.0 Hypertensive heart disease with heart failure (principal); I50.42 Chronic combined systolic (congestive) and diastolic (congestive) heart failure; I25.10 Atherosclerotic heart disease of native coronary artery without angina pectoris; J44.9 Chronic obstructive pulmonary disease, unspecified; E78.5 Hyperlipidemia, unspecified; I25.2 Old myocardial infarction; I48.91 Unspecified atrial fibrillation; I27.21 Secondary pulmonary arterial hypertension; E11.9 Type 2 diabetes mellitus without complications; M19.90 Unspecified osteoarthritis, unspecified site; E78.00 Pure hypercholesterolemia, unspecified; E43 Unspecified severe protein-calorie malnutrition; Z90.49 Acquired absence of other specified parts of digestive tract; Z79.01 Long term (current) use of anticoagulants; Z79.899 Other long term (current) drug therapy; Z87.891 Personal history of nicotine dependence; Z95.1 Presence of aortocoronary bypass graft; Z95.810 Presence of automatic (implantable) cardiac defibrillator; Z87.440 Personal history of urinary (tract) infections; Z95.5 Presence of coronary angioplasty implant and graft
CPT/HCPCS: 96365; 96366; G0463; J1250

== ENCOUNTER → 2018-11-05 | Outpatient (CLI) | payer MEDICARE ==
[2018-11-05] VITALS (8 sets, daily range): BP systolic 128–170; BP diastolic 50–87
--- NOTE | 2018-11-05 08:30 | NUR ---
IN TO CLINIC FOR SCHEDULED INFUSION. WITHOUT DISTRESS OR DISCOMFORT. CARDIODYNAMICS DONE AND REVIEWED. IV insertion IV access obtained, via clean sterile technique by inserting 22 gauge catheter at after attempt(s)BY SLOANE CULVER. IV secured properly. No trauma to site. Patient tolerated procedure well.
--- NOTE | 2018-11-05 08:42 | NUR ---
Clinic Provider Clinic Provider into see pt with new orders received and carried out. Dobutamine gtt started at {5}mcg/kg/hr per MD order.
--- NOTE | 2018-11-05 09:30 | NUR ---
INFUSION ONGOING. UP TO VOID. AFFECT CHEERFUL AND WITHOUT DISTRESS. PT CHANGED HOME MEDICATION REGIMEN TO TAKE AM BP MED PRIOR TO INFUSION.
--- NOTE | 2018-11-05 11:48 | NUR ---
TOLERATED INFUSION WELL. VS WNL. WITHOUT DISTRESS OR DISCOMFORT. IV SITE TO RIGHT FOREARM DCD. SITE BENIGN POST INFUSION. Discharge Instructions See e-MAR for any mediations given with this visit. Patient education given on disease process. Patient verbalized understanding. Previous labs reviewed. Patient discharged in stable condition with after care instructions and follow up appointment FOR 11/09/18. MEDICATION ADMINISTRATION DOBUTAMINE GTT AT 5 MCG/KG/MIN START AT 0842/STOP AT 1139 (18.63 ML/HR)
[2018-11-05 12:20] LABS: Basophils # (auto) 0.1 uL; Basophils % (auto) 1.1 % (0.0-2.0); Eosinophils # (auto) 0.3 uL; Eosinophils % (auto) 4.8 % (0.0-7.0); Hemoglobin 11.8 g/dL (13.5-17.5); Lymphocytes # (auto) 0.7 uL; Lymphocytes % (auto) 11.4 % (10.0-50.0); Mean Corpuscular Hemoglobin 30.3 pg (28.0-32.0); Mean Corpuscular Hgb Conc. 32.7 g/dL (32.0-36.0); Mean Corpuscular Volume 92.6 fL (80.0-100.0); Monocytes # (auto) 0.4 uL; Monocytes % (auto) 6.5 % (0.0-12.0); Neutrophils # (auto) 4.5 uL; Neutrophils % (auto) 76.2 % (37.0-80.0); Nucleated Red Blood Cells % 0.4 %; Platelet Count (auto) 231 10^3/uL (140-450); Red Blood Cells 3.89 10^6/uL (4.5-5.90); Red Cell Distribution Width 15.4 % (11.8-14.3); White Blood Cell 5.9 10^3/uL (4.4-10.8)
[2018-11-05 13:13] LABS: Calcium 8.6 mg/dL (8.5-10.1); Magnesium 2.5 mg/dL (1.6-2.6); Potassium 4.1 mmol/L (3.5-5.1)
[2018-11-05 13:15] LABS: BUN/Creatinine Ratio 22.2
== END | disposition home or self-care (01) ==
LOC: CHF HDHVI 08:02
PROVIDERS: ATTEND Internal Medicine Cardiovascular Disease
DX: I11.0 Hypertensive heart disease with heart failure (principal); I50.42 Chronic combined systolic (congestive) and diastolic (congestive) heart failure; D64.9 Anemia, unspecified; E83.40 Disorders of magnesium metabolism, unspecified; I25.10 Atherosclerotic heart disease of native coronary artery without angina pectoris; J44.9 Chronic obstructive pulmonary disease, unspecified; E78.5 Hyperlipidemia, unspecified; I25.2 Old myocardial infarction; E78.00 Pure hypercholesterolemia, unspecified; E11.9 Type 2 diabetes mellitus without complications; M19.90 Unspecified osteoarthritis, unspecified site; Z87.01 Personal history of pneumonia (recurrent); Z90.49 Acquired absence of other specified parts of digestive tract; Z79.01 Long term (current) use of anticoagulants; Z79.899 Other long term (current) drug therapy; Z95.1 Presence of aortocoronary bypass graft; Z87.891 Personal history of nicotine dependence; Z95.810 Presence of automatic (implantable) cardiac defibrillator; Z95.5 Presence of coronary angioplasty implant and graft
CPT/HCPCS: 36415; 80048; 83735; 83880; 85025; 93701; 96365; 96366; G0463; J1250

== ENCOUNTER → 2018-11-14 | Outpatient (CLI) | payer MEDICARE ==
[~2018-11-14] VITALS: Ht 30.5 cm; Wt 61.2 kg
[2018-11-14] VITALS (9 sets, daily range): BP systolic 104–154; BP diastolic 49–71
[2018-11-14 12:15] LABS: Basophils # (auto) 0.1 uL; Basophils % (auto) 1.1 % (0.0-2.0); Eosinophils # (auto) 0.2 uL; Eosinophils % (auto) 3.3 % (0.0-7.0); Hematocrit 33.5 % (41.0-53.0); Hemoglobin 11.1 g/dL (13.5-17.5); Lymphocytes # (auto) 0.6 uL; Lymphocytes % (auto) 10.1 % (10.0-50.0); Mean Corpuscular Hemoglobin 30.6 pg (28.0-32.0); Mean Corpuscular Volume 92.5 fL (80.0-100.0); Monocytes # (auto) 0.4 uL; Monocytes % (auto) 6.3 % (0.0-12.0); Neutrophils # (auto) 5.1 uL; Neutrophils % (auto) 79.2 % (37.0-80.0); Nucleated Red Blood Cells % 0.1 %; Platelet Count (auto) 233 10^3/uL (140-450); Red Blood Cells 3.62 10^6/uL (4.5-5.90); Red Cell Distribution Width 15.2 % (11.8-14.3); White Blood Cell 6.4 10^3/uL (4.4-10.8)
[2018-11-14 12:22] LABS: Calcium 8.6 mg/dL (8.5-10.1); Potassium 4.1 mmol/L (3.5-5.1)
[2018-11-14 12:25] LABS: BUN/Creatinine Ratio 19.6
== END | disposition home or self-care (01) ==
LOC: CHF HDHVI 08:00
PROVIDERS: ATTEND Internal Medicine Cardiovascular Disease
DX: I11.0 Hypertensive heart disease with heart failure (principal); I50.32 Chronic diastolic (congestive) heart failure; D64.9 Anemia, unspecified; I25.10 Atherosclerotic heart disease of native coronary artery without angina pectoris; J44.9 Chronic obstructive pulmonary disease, unspecified; I27.21 Secondary pulmonary arterial hypertension; I48.91 Unspecified atrial fibrillation; I25.2 Old myocardial infarction; E78.5 Hyperlipidemia, unspecified; E78.00 Pure hypercholesterolemia, unspecified; E11.9 Type 2 diabetes mellitus without complications; M19.90 Unspecified osteoarthritis, unspecified site; E43 Unspecified severe protein-calorie malnutrition; Z90.49 Acquired absence of other specified parts of digestive tract; Z79.899 Other long term (current) drug therapy; Z87.891 Personal history of nicotine dependence; Z87.01 Personal history of pneumonia (recurrent); Z95.1 Presence of aortocoronary bypass graft; Z95.810 Presence of automatic (implantable) cardiac defibrillator; Z87.440 Personal history of urinary (tract) infections; Z95.5 Presence of coronary angioplasty implant and graft; Z79.01 Long term (current) use of anticoagulants
CPT/HCPCS: 36415; 80048; 83880; 85025; 96365; 96366; G0463; J1250

== ENCOUNTER → 2018-11-16 | Outpatient (CLI) | payer MEDICARE ==
[~2018-11-16] MED LIST changes: +CYANOCOBALAMIN (B-12) 1000 MCG/1 ML VIAL IM ONE; +CYANOCOBALAMIN (B-12) 1000 MCG/1 ML VIAL ONE; +FUROSEMIDE 40 MG/4 ML VIAL IV ONE; +FUROSEMIDE 40 MG/4 ML VIAL ONE; +POTASSIUM CHL 10 Meq TABLET PO ONE
--- NOTE | 2018-11-16 08:05 | NUR ---
PT. TO CHF CLINIC FOR DOBUTAMINE INFUSION PER MD ORDER. C/O SOB WITH EXERTION WITH LABS TRENDING UP ON BNP.ORDERS RECEIVED AND CARRIED OUT. SEE NSG ASSESS.
--- NOTE | 2018-11-16 08:15 | NUR ---
IV insertion IV access obtained, via clean sterile technique by inserting 22 gauge catheter at after attempt(s). IV secured properly. No trauma to site. Patient tolerated procedure well. LABS DRAWN AND SENT. NOTE: PT. HELD HIS COUMADIN LAST NOC D/T DOG SCRATCH ON LFT HAND AND EXTENDED BLEEDING.
--- NOTE | 2018-11-16 08:20 | NUR ---
Clinic Provider Clinic Provider into see pt with new orders received and carried out. Dobutamine gtt started at {5}mcg/kg/hr per MD order.
--- NOTE | 2018-11-16 08:56 | NUR ---
MEDS: PT. MEDICATED WITH LASIX 40MG IVP PER MD ORDER.
--- NOTE | 2018-11-16 08:57 | NUR ---
MEDS: PT. MEDICATED WITH KDUR 10 MEQ PER MD ORDER.
--- NOTE | 2018-11-16 09:00 | NUR ---
MEDS: PT. MEDICATED WITH VIT. B12 1000MCG IM LFT DELT.
--- NOTE | 2018-11-16 11:00 | NUR ---
UP TO VOID MULTIPLE TIMES. NO DYSPNEA NOTED. AFFECT CHEERFUL AND VISITING WITH PATIENTS. VS WNL
--- NOTE | 2018-11-16 12:08 | NUR ---
INFUSION COMPLETED. TOLERATED WELL IV SITE DCD AND SITE BENIGN POST INFUSION.
[2018-11-16 12:15] VITALS: BP 111/58
--- NOTE | 2018-11-16 12:15 | NUR ---
CHF Discharge Instructions See e-MAR for any mediations given with this visit. Patient education given on disease process. Patient verbalized understanding. Previous labs reviewed. Patient discharged in stable condition with after care instructions and follow up appointment FOR Monday11/19/18 MEDICATION ADMINISTRATION DOBUTAMINE GTT AT 5 MCG/KG/MIN 18.6 ML/HR START AT 0820/STOP AT 1208 VIT B12 1000 MCG IM AT 0900 TO LEFT DELTOID LASIX 40 MG IVP AT 0900 POTASSIUM 40 MEQ PO AT 0857 Addendum: 11/16/18 at 1543 by ODALYS KELLER RN UT AMEND ABOVE NOTE MEDICATION ADMINISTARTION POTASSIUM 10 MEQ PO AT 0857 (TOTAL DOSE 10 MEQ, NOT 40 MEQ STATED IN PREVIOUS NOTE)
== END | disposition home or self-care (01) ==
LOC: CHF HDHVI 08:12
PROVIDERS: ATTEND Internal Medicine Cardiovascular Disease
DX: I25.10 Atherosclerotic heart disease of native coronary artery without angina pectoris (principal); I11.0 Hypertensive heart disease with heart failure; I50.42 Chronic combined systolic (congestive) and diastolic (congestive) heart failure; D64.9 Anemia, unspecified; I48.91 Unspecified atrial fibrillation; I25.2 Old myocardial infarction; I27.21 Secondary pulmonary arterial hypertension; I42.8 Other cardiomyopathies; J44.9 Chronic obstructive pulmonary disease, unspecified; E78.00 Pure hypercholesterolemia, unspecified; E78.5 Hyperlipidemia, unspecified; E11.9 Type 2 diabetes mellitus without complications; M19.90 Unspecified osteoarthritis, unspecified site; Z95.810 Presence of automatic (implantable) cardiac defibrillator; Z90.49 Acquired absence of other specified parts of digestive tract; Z79.01 Long term (current) use of anticoagulants; Z79.899 Other long term (current) drug therapy; Z87.891 Personal history of nicotine dependence; Z95.5 Presence of coronary angioplasty implant and graft; Z87.01 Personal history of pneumonia (recurrent)
CPT/HCPCS: 36415; 80162; 83880; 85610; 96365; 96366; 96372; 96375; G0463; J1250; J1940; J3420; 96374

== ENCOUNTER → 2018-11-19 | Outpatient (CLI) | payer MEDICARE ==
[~2018-11-19] VITALS: Ht 30.5 cm; Wt 60.8 kg
[~2018-11-19] MED LIST changes: -CYANOCOBALAMIN (B-12) 1000 MCG/1 ML VIAL IM ONE; -CYANOCOBALAMIN (B-12) 1000 MCG/1 ML VIAL ONE; -FUROSEMIDE 40 MG/4 ML VIAL IV ONE; -FUROSEMIDE 40 MG/4 ML VIAL ONE; -POTASSIUM CHL 10 Meq TABLET PO ONE
--- NOTE | 2018-11-19 08:00 | NUR ---
CHF PT ARRIVED TO THE CHF CLINIC FOR WEEKLY THERAPY , V/S OBTAINED 0 DISTRESS. A/0 X 3
--- NOTE | 2018-11-19 08:10 | NUR ---
Clinic Provider Clinic Provider UPDATED ON PT STATUS orders received and carried out. Dobutamine gtt started at {5}mcg/kg/hr per order. Addendum: 12/28/18 at 1416 by Loan Jenkins RN RN START TIME AT 0830 NOT 0810 ON 11/19/18
--- NOTE | 2018-11-19 08:25 | NUR ---
IV insertion IV access obtained, via clean sterile technique by inserting 22 gauge catheter at after attempt(s). IV secured properly. No trauma to site. Patient tolerated procedure well.
[2018-11-19 08:45] VITALS: BP 116/51
[2018-11-19 09:00] VITALS: BP 101/47
[2018-11-19 09:15] VITALS: BP 124/54
[2018-11-19 09:45] VITALS: BP 139/67
--- NOTE | 2018-11-19 10:00 | NUR ---
VISITING WITH PATIENTS. WITHOUT DISTRESS. VS WNL.
--- NOTE | 2018-11-19 11:45 | NUR ---
INFUSION COMPLETED. TOLERATED WELL. WITHOUT DISTRESS OR DISCOMFORT. UP TO VOID.
[2018-11-19 11:50] VITALS: BP 124/58
--- NOTE | 2018-11-19 11:50 | NUR ---
CHF IV TO LEFT UPPER ARM REMOVED. SITE BENIGN POST INFUSION. Discharge Instructions See e-MAR for any mediations given with this visit. Patient education given on disease process. Patient verbalized understanding. Previous labs reviewed. Patient discharged in stable condition with after care instructions and follow up appointment FOR Monday11/23/18.
[2018-11-19 12:21] LABS: Basophils # (auto) 0 uL; Basophils % (auto) 0.8 % (0.0-2.0); Eosinophils # (auto) 0.2 uL; Eosinophils % (auto) 4.1 % (0.0-7.0); Hematocrit 33.1 % (41.0-53.0); Hemoglobin 11.1 g/dL (13.5-17.5); Lymphocytes # (auto) 0.7 uL; Lymphocytes % (auto) 11.9 % (10.0-50.0); Mean Corpuscular Hemoglobin 30.7 pg (28.0-32.0); Mean Corpuscular Hgb Conc. 33.4 g/dL (32.0-36.0); Mean Corpuscular Volume 91.8 fL (80.0-100.0); Monocytes # (auto) 0.5 uL; Monocytes % (auto) 8.3 % (0.0-12.0); Neutrophils # (auto) 4.2 uL; Neutrophils % (auto) 74.9 % (37.0-80.0); Nucleated Red Blood Cells % 0.1 %; Platelet Count (auto) 249 10^3/uL (140-450); Red Cell Distribution Width 14.9 % (11.8-14.3); White Blood Cell 5.6 10^3/uL (4.4-10.8)
[2018-11-19 13:52] LABS: BUN/Creatinine Ratio 23.5; Calcium 8.5 mg/dL (8.5-10.1)
== END | disposition home or self-care (01) ==
LOC: CHF HDHVI 08:02
PROVIDERS: ATTEND Internal Medicine Cardiovascular Disease
DX: I11.0 Hypertensive heart disease with heart failure (principal); I50.42 Chronic combined systolic (congestive) and diastolic (congestive) heart failure; D64.9 Anemia, unspecified; I25.10 Atherosclerotic heart disease of native coronary artery without angina pectoris; I25.2 Old myocardial infarction; I27.21 Secondary pulmonary arterial hypertension; I48.91 Unspecified atrial fibrillation; I42.8 Other cardiomyopathies; J43.9 Emphysema, unspecified; M19.90 Unspecified osteoarthritis, unspecified site; E78.5 Hyperlipidemia, unspecified; E78.00 Pure hypercholesterolemia, unspecified; E11.9 Type 2 diabetes mellitus without complications; Z90.49 Acquired absence of other specified parts of digestive tract; Z79.899 Other long term (current) drug therapy; Z79.01 Long term (current) use of anticoagulants; Z87.891 Personal history of nicotine dependence; Z95.1 Presence of aortocoronary bypass graft; Z95.5 Presence of coronary angioplasty implant and graft; Z95.810 Presence of automatic (implantable) cardiac defibrillator; Z87.01 Personal history of pneumonia (recurrent)
CPT/HCPCS: 36415; 80048; 83880; 85025; 96365; 96366; G0463; J1250

== ENCOUNTER → 2018-11-23 | Outpatient (CLI) | payer MEDICARE ==
[2018-11-23] VITALS (9 sets, daily range): BP systolic 129–159; BP diastolic 54–72
[~2018-11-23] MED LIST changes: +DOBUTamine 1000MCG/ML 250 ML IV SCH
--- NOTE | 2018-11-23 08:20 | NUR ---
CHF PT ARRIVED TO THE CHF CLINIC FOR WEEKLY TREATMENT , A/O X 3 0 PAIN 0 DISTRESS. V/S OBTAINED
--- NOTE | 2018-11-23 08:25 | NUR ---
Clinic Provider Clinic Provider into see pt with new orders received and carried out. Dobutamine gtt started at {5}mcg/kg/hr per MD order.
--- NOTE | 2018-11-23 08:35 | NUR ---
IV insertion IV access obtained, via clean sterile technique by inserting 22 gauge catheter at after attempt(s). IV secured properly. No trauma to site. Patient tolerated procedure well.
--- NOTE | 2018-11-23 11:50 | NUR ---
Discharge Instructions See e-MAR for any mediations given with this visit. Patient education given on disease process. Patient verbalized understanding. Previous labs reviewed. Patient discharged in stable condition with after care instructions and follow up appointment. MEDICATIONS 0842 START TIME DOBUTAMINE DRIP MCG/KG/MIN 1146 STOP TIME DOBUTAMINE DRIP
--- NOTE | 2018-11-23 11:51 | NUR ---
IV removal IV DC'd with sterile technique, catheter fully intact. Pressure dressing applied to site. Patient tolerated procedure well. Discharged with aftercare instructions per MD. NOTE:
== END | disposition home or self-care (01) ==
LOC: CHF HDHVI 08:28
PROVIDERS: ATTEND Internal Medicine Cardiovascular Disease
DX: I11.0 Hypertensive heart disease with heart failure (principal); I50.42 Chronic combined systolic (congestive) and diastolic (congestive) heart failure; E83.40 Disorders of magnesium metabolism, unspecified; I25.10 Atherosclerotic heart disease of native coronary artery without angina pectoris; J44.9 Chronic obstructive pulmonary disease, unspecified; E78.5 Hyperlipidemia, unspecified; I25.2 Old myocardial infarction; E78.00 Pure hypercholesterolemia, unspecified; E11.9 Type 2 diabetes mellitus without complications; I48.91 Unspecified atrial fibrillation; M19.90 Unspecified osteoarthritis, unspecified site; Z87.01 Personal history of pneumonia (recurrent); Z87.440 Personal history of urinary (tract) infections; Z90.49 Acquired absence of other specified parts of digestive tract; Z79.01 Long term (current) use of anticoagulants; Z79.899 Other long term (current) drug therapy; Z87.891 Personal history of nicotine dependence; Z95.1 Presence of aortocoronary bypass graft; Z95.810 Presence of automatic (implantable) cardiac defibrillator; Z95.5 Presence of coronary angioplasty implant and graft
CPT/HCPCS: 96365; 96366; G0463; J1250

== ENCOUNTER → 2018-11-26 | Outpatient (CLI) | payer MEDICARE ==
[2018-11-26] VITALS (9 sets, daily range): BP systolic 95–142; BP diastolic 51–74
[~2018-11-26] MED LIST changes: -DOBUTamine 1000MCG/ML 250 ML IV SCH
--- NOTE | 2018-11-26 08:00 | NUR ---
IN TO CLINIC FOR SCHEDULED INFUSION. WITHOUT DISTRESS OR DISCOMFORT. VS WNL.
--- NOTE | 2018-11-26 08:20 | NUR ---
IV insertion IV access obtained, via clean sterile technique by inserting 22 gauge catheter at after attempt(s). IV secured properly. No trauma to site. Patient tolerated procedure well. CLINIC PROVIDER CONSULTED AND ORDERS RECIEVED AND CARRIED OUT.
--- NOTE | 2018-11-26 08:22 | NUR ---
Clinic Provider Clinic Provider into see pt with new orders received and carried out. Dobutamine gtt started at {5}mcg/kg/hr per MD order.
--- NOTE | 2018-11-26 10:30 | NUR ---
RESTING COMFORTABLY. VS WNL.
--- NOTE | 2018-11-26 11:27 | NUR ---
IV removal IV DC'd with sterile technique, catheter fully intact. Pressure dressing applied to site. Patient tolerated procedure well. Discharged with aftercare instructions per MD. NOTE:
--- NOTE | 2018-11-26 11:30 | NUR ---
Discharge Instructions See e-MAR for any mediations given with this visit. Patient education given on disease process. Patient verbalized understanding. Previous labs reviewed. Patient discharged in stable condition with after care instructions and follow up appointment. MEDICATIONS 0822 START TIME DOBUTAMINE DRIP 5MCG/KG/MIN STOP TIME 1125
[2018-11-26 11:56] LABS: Basophils # (auto) 0.1 uL; Basophils % (auto) 1.7 % (0.0-2.0); Eosinophils # (auto) 0.4 uL; Eosinophils % (auto) 6.6 % (0.0-7.0); Hematocrit 34.1 % (41.0-53.0); Lymphocytes # (auto) 0.7 uL; Lymphocytes % (auto) 13.1 % (10.0-50.0); Mean Corpuscular Hemoglobin 29.9 pg (28.0-32.0); Mean Corpuscular Hgb Conc. 32.4 g/dL (32.0-36.0); Mean Corpuscular Volume 92.4 fL (80.0-100.0); Monocytes # (auto) 0.4 uL; Monocytes % (auto) 7.7 % (0.0-12.0); Neutrophils # (auto) 3.8 uL; Neutrophils % (auto) 70.9 % (37.0-80.0); Platelet Count (auto) 283 10^3/uL (140-450); Red Blood Cells 3.69 10^6/uL (4.5-5.90); Red Cell Distribution Width 14.7 % (11.8-14.3); White Blood Cell 5.3 10^3/uL (4.4-10.8)
[2018-11-26 13:14] LABS: Potassium 3.9 mmol/L (3.5-5.1)
[2018-11-26 13:35] LABS: Albumin 3.1 g/dL (3.4-5.0); Bilirubin, Total 0.6 mg/dL (0.2-1.0); Calcium 8.7 mg/dL (8.5-10.1); Magnesium 2.7 mg/dL (1.6-2.6); Total Protein 7.2 g/dL (6.4-8.2)
== END | disposition home or self-care (01) ==
LOC: CHF HDHVI 07:57
PROVIDERS: ATTEND Internal Medicine Cardiovascular Disease
DX: I11.0 Hypertensive heart disease with heart failure (principal); I50.42 Chronic combined systolic (congestive) and diastolic (congestive) heart failure; J44.9 Chronic obstructive pulmonary disease, unspecified; D64.9 Anemia, unspecified; E83.40 Disorders of magnesium metabolism, unspecified; I25.10 Atherosclerotic heart disease of native coronary artery without angina pectoris; I42.8 Other cardiomyopathies; I27.21 Secondary pulmonary arterial hypertension; I25.2 Old myocardial infarction; I70.0 Atherosclerosis of aorta; I48.91 Unspecified atrial fibrillation; E78.5 Hyperlipidemia, unspecified; E78.00 Pure hypercholesterolemia, unspecified; E11.9 Type 2 diabetes mellitus without complications; M19.90 Unspecified osteoarthritis, unspecified site; Z95.810 Presence of automatic (implantable) cardiac defibrillator; Z79.01 Long term (current) use of anticoagulants; Z95.5 Presence of coronary angioplasty implant and graft; Z95.1 Presence of aortocoronary bypass graft; Z90.49 Acquired absence of other specified parts of digestive tract; Z79.899 Other long term (current) drug therapy; Z87.891 Personal history of nicotine dependence; Z87.01 Personal history of pneumonia (recurrent)
CPT/HCPCS: 36415; 80053; 83735; 83880; 85025; 96365; 96366; G0463; J1250

== ENCOUNTER → 2018-11-30 | Outpatient (CLI) | payer MEDICARE ==
--- NOTE | 2018-11-30 08:00 | NUR ---
PT. TO CHF CLINIC FOR DOBUTAMINE INFUSION PER MD ORDER. PT. STATES BREATHING BETTER. ORDERS RECEIVED AND CARRIED OUT. SEE NSG ASSESS.
--- NOTE | 2018-11-30 08:15 | NUR ---
IV insertion IV access obtained, via clean sterile technique by inserting 22 gauge catheter at after attempt(s). IV secured properly. No trauma to site. Patient tolerated procedure well.
--- NOTE | 2018-11-30 08:20 | NUR ---
Clinic Provider Clinic Provider into see pt with new orders received and carried out. Dobutamine gtt started at {5}mcg/kg/hr per MD order.
[2018-11-30 08:30] VITALS: BP 133/56
[2018-11-30 08:45] VITALS: BP 127/39
[2018-11-30 09:00] VITALS: BP 121/45
[2018-11-30 09:30] VITALS: BP 129/54
[2018-11-30 11:00] VITALS: BP 124/70
[2018-11-30 11:30] VITALS: BP 150/72
--- NOTE | 2018-11-30 11:30 | NUR ---
INFUSION COMPLETED. TOLERATED WELL. IV SITE TO RIGHT FOREARM DCD AND SITE BENIGN POST INFUSION. DISCHARGED TO SELF CARE IN NO DISTRESS OR DISCOMFORT. VS WNL. MEDICATION ADMINISTRATION DOBUTAMINE GTT AT 5 MCG/KG/MIN START AT 0820/STOP AT 1122 (18.15 ML/HR)
== END | disposition home or self-care (01) ==
LOC: CHF HDHVI 08:00
PROVIDERS: ATTEND Internal Medicine Cardiovascular Disease
DX: I25.10 Atherosclerotic heart disease of native coronary artery without angina pectoris (principal); I11.0 Hypertensive heart disease with heart failure; I50.42 Chronic combined systolic (congestive) and diastolic (congestive) heart failure; I42.8 Other cardiomyopathies; J44.9 Chronic obstructive pulmonary disease, unspecified; I25.2 Old myocardial infarction; I27.21 Secondary pulmonary arterial hypertension; I48.91 Unspecified atrial fibrillation; E11.9 Type 2 diabetes mellitus without complications; E78.5 Hyperlipidemia, unspecified; E78.00 Pure hypercholesterolemia, unspecified; M19.90 Unspecified osteoarthritis, unspecified site; Z90.49 Acquired absence of other specified parts of digestive tract; Z95.810 Presence of automatic (implantable) cardiac defibrillator; Z79.01 Long term (current) use of anticoagulants; Z95.1 Presence of aortocoronary bypass graft; Z95.5 Presence of coronary angioplasty implant and graft; Z79.899 Other long term (current) drug therapy; Z87.891 Personal history of nicotine dependence
CPT/HCPCS: 96365; 96366; G0463; J1250

== ENCOUNTER → 2018-12-03 | Outpatient (CLI) | payer MEDICARE ==
[2018-12-03] VITALS (8 sets, daily range): BP systolic 102–158; BP diastolic 43–71
--- NOTE | 2018-12-03 08:00 | NUR ---
IN TO CLINIC FOR SCHEDULED INFUSION. WITHOUT DISTRESS OR DISCOMFORT.
--- NOTE | 2018-12-03 08:18 | NUR ---
IV insertion IV access obtained, via clean sterile technique by inserting 22 gauge catheter at after attempt(s). IV secured properly. No trauma to site. Patient tolerated procedure well.
--- NOTE | 2018-12-03 09:00 | NUR ---
TOLERATING INFUSION WELL. WITHOUT COMPLAINT. SEE FREQUENT VITALS SIGNS.
--- NOTE | 2018-12-03 11:30 | NUR ---
IV removal IV DC'd with sterile technique, catheter fully intact. Pressure dressing applied to site. Patient tolerated procedure well. Discharged with aftercare instructions per MD. NOTE:
--- NOTE | 2018-12-03 11:36 | NUR ---
Discharge Instructions See e-MAR for any mediations given with this visit. Patient education given on disease process. Patient verbalized understanding. Previous labs reviewed. Patient discharged in stable condition with after care instructions and follow up appointment. MEDICATIONS 0818 START TIME DOBUTAMINE DRIP 1120 STOP DOBUTAMINE
[2018-12-03 12:21] LABS: Potassium 4.1 mmol/L (3.5-5.1)
[2018-12-03 12:27] LABS: BUN/Creatinine Ratio 18.6; Calcium 8.9 mg/dL (8.5-10.1)
== END | disposition home or self-care (01) ==
LOC: CHF HDHVI 08:08
PROVIDERS: ATTEND Internal Medicine Cardiovascular Disease
DX: I11.0 Hypertensive heart disease with heart failure (principal); I50.42 Chronic combined systolic (congestive) and diastolic (congestive) heart failure; I48.91 Unspecified atrial fibrillation; J44.9 Chronic obstructive pulmonary disease, unspecified; I25.10 Atherosclerotic heart disease of native coronary artery without angina pectoris; I25.2 Old myocardial infarction; I42.8 Other cardiomyopathies; E11.9 Type 2 diabetes mellitus without complications; E78.5 Hyperlipidemia, unspecified; E78.00 Pure hypercholesterolemia, unspecified; M19.90 Unspecified osteoarthritis, unspecified site; Z87.01 Personal history of pneumonia (recurrent); Z79.01 Long term (current) use of anticoagulants; Z90.49 Acquired absence of other specified parts of digestive tract; Z79.899 Other long term (current) drug therapy; Z87.891 Personal history of nicotine dependence; Z95.1 Presence of aortocoronary bypass graft; Z95.810 Presence of automatic (implantable) cardiac defibrillator; Z95.5 Presence of coronary angioplasty implant and graft
CPT/HCPCS: 36415; 80048; 83880; 96365; 96366; G0463; J1250

== ENCOUNTER → 2018-12-07 | Outpatient (CLI) | payer MEDICARE ==
--- NOTE | 2018-12-07 08:00 | NUR ---
IN TO CLINIC FOR SCHEDULED INFUSION. AFFECT CHEERFUL AND WITHOUT DISTRESS. PURSED LIP BREATHING IN USE WITH ACTIVITY. VS WNL.
--- NOTE | 2018-12-07 08:09 | NUR ---
IV insertion IV access obtained, via clean sterile technique by inserting 22 gauge catheter at after attempt(s). IV secured properly. No trauma to site. Patient tolerated procedure well.
--- NOTE | 2018-12-07 08:10 | NUR ---
Clinic Provider Clinic Provider into see pt with new orders received and carried out. Dobutamine gtt started at {5}mcg/kg/hr per MD order.
[2018-12-07 08:30] VITALS: BP 139/60
[2018-12-07 08:45] VITALS: BP 141/49
[2018-12-07 09:00] VITALS: BP 111/48
[2018-12-07 09:45] VITALS: BP 135/59
[2018-12-07 11:15] VITALS: BP 106/51
--- NOTE | 2018-12-07 11:15 | NUR ---
COMPLETED INFUSION AND TOLERATED WELL. VS WNL. IV SITE BENIGN POST INFUSION. DISCHARGED TO SELF CARE WITHOUT DISTRESS MEDICATION ADMINISTRATION DOBUTAMINE GTT AT 5 MCG/KG/MIN START AT 0810/STOP [id number] (18.27 ML/HR)
== END | disposition home or self-care (01) ==
LOC: CHF HDHVI 08:07
PROVIDERS: ATTEND Internal Medicine Cardiovascular Disease
DX: I11.0 Hypertensive heart disease with heart failure (principal); I50.42 Chronic combined systolic (congestive) and diastolic (congestive) heart failure; J44.9 Chronic obstructive pulmonary disease, unspecified; I25.10 Atherosclerotic heart disease of native coronary artery without angina pectoris; I25.2 Old myocardial infarction; I42.8 Other cardiomyopathies; I27.21 Secondary pulmonary arterial hypertension; E78.00 Pure hypercholesterolemia, unspecified; E11.9 Type 2 diabetes mellitus without complications; E78.5 Hyperlipidemia, unspecified; I48.91 Unspecified atrial fibrillation; M19.90 Unspecified osteoarthritis, unspecified site; Z90.49 Acquired absence of other specified parts of digestive tract; Z79.899 Other long term (current) drug therapy; Z87.891 Personal history of nicotine dependence; Z79.01 Long term (current) use of anticoagulants; Z95.1 Presence of aortocoronary bypass graft; Z95.5 Presence of coronary angioplasty implant and graft; Z95.810 Presence of automatic (implantable) cardiac defibrillator; Z87.01 Personal history of pneumonia (recurrent)
CPT/HCPCS: 96365; 96366; G0463; J1250

== ENCOUNTER → 2018-12-10 | Outpatient (CLI) | payer MEDICARE ==
[2018-12-10] VITALS (9 sets, daily range): BP systolic 118–173; BP diastolic 57–73
[~2018-12-10] VITALS: Ht 30.5 cm; Wt 59.9 kg
--- NOTE | 2018-12-10 08:15 | NUR ---
IV insertion IV access obtained, via clean sterile technique by inserting 22 gauge catheter at after attempt(s). IV secured properly. No trauma to site. Patient tolerated procedure well.
--- NOTE | 2018-12-10 10:00 | NUR ---
INFUSION ONGOING. WITHOUT DISTRESS.
--- NOTE | 2018-12-10 11:40 | NUR ---
IV removal IV DC'd with sterile technique, catheter fully intact. Pressure dressing applied to site. Patient tolerated procedure well. Discharged with aftercare instructions per MD. NOTE:
--- NOTE | 2018-12-10 11:42 | NUR ---
Discharge Instructions See e-MAR for any mediations given with this visit. Patient education given on disease process. Patient verbalized understanding. Previous labs reviewed. Patient discharged in stable condition with after care instructions and follow up appointment. MEDICATIONS 0840 START TIME DOBUTAMINE DRIP 1142 STOP TIME DOBUTAMINE DRIP
[2018-12-10 12:39] LABS: Basophils # (auto) 0.1 uL; Basophils % (auto) 1.6 % (0.0-2.0); Eosinophils # (auto) 0.3 uL; Eosinophils % (auto) 5.8 % (0.0-7.0); Hematocrit 33.6 % (41.0-53.0); Lymphocytes # (auto) 0.6 uL; Lymphocytes % (auto) 12.9 % (10.0-50.0); Mean Corpuscular Hemoglobin 30.2 pg (28.0-32.0); Mean Corpuscular Hgb Conc. 32.8 g/dL (32.0-36.0); Mean Corpuscular Volume 91.9 fL (80.0-100.0); Monocytes # (auto) 0.4 uL; Monocytes % (auto) 9.8 % (0.0-12.0); Neutrophils # (auto) 3.2 uL; Neutrophils % (auto) 69.9 % (37.0-80.0); Platelet Count (auto) 266 10^3/uL (140-450); Red Blood Cells 3.66 10^6/uL (4.5-5.90); Red Cell Distribution Width 14.9 % (11.8-14.3); White Blood Cell 4.6 10^3/uL (4.4-10.8)
[2018-12-10 12:46] LABS: BUN/Creatinine Ratio 23.3; Calcium 8.7 mg/dL (8.5-10.1); Magnesium 2.7 mg/dL (1.6-2.6); Potassium 4.1 mmol/L (3.5-5.1)
== END | disposition home or self-care (01) ==
LOC: CHF HDHVI 08:13
PROVIDERS: ATTEND Internal Medicine Cardiovascular Disease
DX: I11.0 Hypertensive heart disease with heart failure (principal); I50.42 Chronic combined systolic (congestive) and diastolic (congestive) heart failure; J44.9 Chronic obstructive pulmonary disease, unspecified; E83.40 Disorders of magnesium metabolism, unspecified; D64.9 Anemia, unspecified; I25.10 Atherosclerotic heart disease of native coronary artery without angina pectoris; I48.91 Unspecified atrial fibrillation; I25.2 Old myocardial infarction; I27.21 Secondary pulmonary arterial hypertension; I42.8 Other cardiomyopathies; E78.5 Hyperlipidemia, unspecified; E78.00 Pure hypercholesterolemia, unspecified; E11.9 Type 2 diabetes mellitus without complications; M19.90 Unspecified osteoarthritis, unspecified site; Z79.899 Other long term (current) drug therapy; Z90.49 Acquired absence of other specified parts of digestive tract; Z95.1 Presence of aortocoronary bypass graft; Z87.891 Personal history of nicotine dependence; Z95.5 Presence of coronary angioplasty implant and graft; Z79.01 Long term (current) use of anticoagulants; Z95.810 Presence of automatic (implantable) cardiac defibrillator
CPT/HCPCS: 36415; 80048; 83735; 83880; 85025; 96365; 96366; G0463; J1250

== ENCOUNTER → 2018-12-14 | Outpatient (CLI) | payer MEDICARE ==
[2018-12-14] VITALS (9 sets, daily range): BP systolic 133–159; BP diastolic 57–69
--- NOTE | 2018-12-14 08:00 | NUR ---
IN TO CLINIC FOR SCHEDULED INFUSION. WITHOUT DISTRESS OR DISCOMFORT. IV insertion IV access obtained, via clean sterile technique by inserting 22 gauge catheter at after attempt(s). IV secured properly. No trauma to site. Patient tolerated procedure well.
--- NOTE | 2018-12-14 08:15 | NUR ---
CLINIC PROVIDER CONSULTED AND ORDERS RECIEVED AND CARRIED OUT. Clinic Provider Dobutamine gtt started at {5}mcg/kg/hr per MD order.
--- NOTE | 2018-12-14 09:43 | NUR ---
DOZING INTERMITTENTLY. WITHOUT COMPLAINT. VS WNL. SEE FREQUENT VITAL SIGNS.
--- NOTE | 2018-12-14 11:30 | NUR ---
CHF COMPLETED INFUSION WITHOUT INCIDENT. SEE FREQUENT VS. IV SITE TO RIGHT FOREARM DCD AND SITE BENIGN POST INFUSION. Discharge Instructions See e-MAR for any mediations given with this visit. Patient education given on disease process. Patient verbalized understanding. Previous labs reviewed. Patient discharged in stable condition with after care instructions and follow up appointment FOR Monday12/17/18 MEDICATION ADMINISTRATION DOBUTAMINE GTT AT 5 MCG/KG/MIN START AT 0815/STOP AT 1120 (18.18 ML/HR)
== END | disposition home or self-care (01) ==
LOC: CHF HDHVI 08:10
PROVIDERS: ATTEND Internal Medicine Cardiovascular Disease
DX: I11.0 Hypertensive heart disease with heart failure (principal); I50.42 Chronic combined systolic (congestive) and diastolic (congestive) heart failure; I48.91 Unspecified atrial fibrillation; J43.9 Emphysema, unspecified; I27.21 Secondary pulmonary arterial hypertension; I42.8 Other cardiomyopathies; E78.5 Hyperlipidemia, unspecified; E78.00 Pure hypercholesterolemia, unspecified; E11.9 Type 2 diabetes mellitus without complications; M19.90 Unspecified osteoarthritis, unspecified site; E43 Unspecified severe protein-calorie malnutrition; Z90.49 Acquired absence of other specified parts of digestive tract; Z79.01 Long term (current) use of anticoagulants; Z95.5 Presence of coronary angioplasty implant and graft; Z87.891 Personal history of nicotine dependence; Z95.1 Presence of aortocoronary bypass graft; Z79.899 Other long term (current) drug therapy; Z95.810 Presence of automatic (implantable) cardiac defibrillator
CPT/HCPCS: 96365; 96366; G0463; J1250

== ENCOUNTER → 2018-12-17 | Outpatient (CLI) | payer MEDICARE ==
[2018-12-17] VITALS (10 sets, daily range): BP systolic 115–169; BP diastolic 48–75
[~2018-12-17] VITALS: Ht 30.5 cm; Wt 60.3 kg
[~2018-12-17] MED LIST changes: +CYANOCOBALAMIN (B-12) 1000 MCG/1 ML VIAL IM ONE; +CYANOCOBALAMIN (B-12) 1000 MCG/1 ML VIAL ONE; +TESTOSTERONE CYPIONATE 200 MG/ML 1ML VIAL IM ONE
--- NOTE | 2018-12-17 08:00 | NUR ---
CHF PT ARRIVED TO THE CHF CLINIC FOR WEEKLY THERAPY, A/O X 3 AND IN NO DISTRESS. PT STATES HE HAD A ROUGH MONDAY, DESCRIBES DIFFICULTY BREATHING BUT HE RESTED AND APPLIED OXYGEN AND IT GOT BETTER.
--- NOTE | 2018-12-17 08:00 | NUR ---
Clinic Provider Clinic Provider UPDATED REGARDING pt NEW orders received and carried out. Dobutamine gtt started at {5}mcg/kg/hr per MD order.
--- NOTE | 2018-12-17 08:15 | NUR ---
IV insertion IV access obtained, via clean sterile technique by inserting 20 gauge catheter at after attempt(s). IV secured properly. No trauma to site. Patient tolerated procedure well.
--- NOTE | 2018-12-17 11:42 | NUR ---
Discharge Instructions See e-MAR for any mediations given with this visit. Patient education given on disease process. Patient verbalized understanding. Previous labs reviewed. Patient discharged in stable condition with after care instructions and follow up appointment. MEDICATIONS 0818 START TIME DOBUTAMINE DRIP 5MCG.KG.MIN X 3 HRS 1138 STOP TIME DOBUTAMINE DRIP 1034 VIT B12 1000 MCG IM X 1 1034 TESTOSTERONE 200 MG IM X 1 LEFT GLUTE
--- NOTE | 2018-12-17 11:42 | NUR ---
IV removal IV DC'd with sterile technique, catheter fully intact. Pressure dressing applied to site. Patient tolerated procedure well. Discharged with aftercare instructions per MD. NOTE:
[2018-12-17 13:06] LABS: Potassium 3.7 mmol/L (3.5-5.1)
[2018-12-17 13:11] LABS: BUN/Creatinine Ratio 19.4
== END | disposition home or self-care (01) ==
LOC: CHF HDHVI 08:11
PROVIDERS: ATTEND Internal Medicine Cardiovascular Disease
DX: I25.10 Atherosclerotic heart disease of native coronary artery without angina pectoris (principal); I11.0 Hypertensive heart disease with heart failure; I50.23 Acute on chronic systolic (congestive) heart failure; I48.91 Unspecified atrial fibrillation; D64.9 Anemia, unspecified; I27.21 Secondary pulmonary arterial hypertension; I42.8 Other cardiomyopathies; I25.2 Old myocardial infarction; J44.9 Chronic obstructive pulmonary disease, unspecified; E78.5 Hyperlipidemia, unspecified; E78.00 Pure hypercholesterolemia, unspecified; E11.9 Type 2 diabetes mellitus without complications; M19.90 Unspecified osteoarthritis, unspecified site; E43 Unspecified severe protein-calorie malnutrition; Z79.01 Long term (current) use of anticoagulants; Z95.1 Presence of aortocoronary bypass graft; Z79.899 Other long term (current) drug therapy; Z87.891 Personal history of nicotine dependence; Z90.49 Acquired absence of other specified parts of digestive tract; Z95.5 Presence of coronary angioplasty implant and graft; Z95.810 Presence of automatic (implantable) cardiac defibrillator
CPT/HCPCS: 36415; 80048; 83880; 96365; 96366; 96372; G0463; J1071; J1250; J3420

== ENCOUNTER → 2018-12-21 | Outpatient (CLI) | payer MEDICARE ==
[~2018-12-21] MED LIST changes: -CYANOCOBALAMIN (B-12) 1000 MCG/1 ML VIAL IM ONE; -CYANOCOBALAMIN (B-12) 1000 MCG/1 ML VIAL ONE; -TESTOSTERONE CYPIONATE 200 MG/ML 1ML VIAL IM ONE
--- NOTE | 2018-12-21 08:00 | NUR ---
PT. TO CHF CLINIC FOR DOBUTAMINE INFUSION PER DR. MCGRATH WHO SAW PT. ON MONDAY WITH NEW MEDS FOR MED NEB TX RX'D BY . PT. BROUGHT MEDS INTO CLINIC FOR EVAL. AND QUESTIONS.. ORDERS RECEIVED AND CARRIED OUT. SEE NSG. ASSESS.
--- NOTE | 2018-12-21 08:10 | NUR ---
IV insertion IV access obtained, via clean sterile technique by inserting 22 gauge catheter at after attempt(s). IV secured properly. No trauma to site. Patient tolerated procedure well. NO LABS.
--- NOTE | 2018-12-21 08:15 | NUR ---
Clinic Provider Clinic Provider into see pt with new orders received and carried out. Dobutamine gtt started at {5}mcg/kg/hr per MD order.
[2018-12-21 08:30] VITALS: BP 108/51
[2018-12-21 08:45] VITALS: BP 104/50
[2018-12-21 09:00] VITALS: BP 118/53
[2018-12-21 09:30] VITALS: BP 146/68
[2018-12-21 10:15] VITALS: BP 144/64
--- NOTE | 2018-12-21 11:15 | NUR ---
IV removal IV DC'd with sterile technique, catheter fully intact. Pressure dressing applied to site. Patient tolerated procedure well.
[2018-12-21 11:20] VITALS: BP 122/50
--- NOTE | 2018-12-21 11:20 | NUR ---
CHF CLINIC Discharge Instructions See e-MAR for any mediations given with this visit. Patient education given on disease process. Patient verbalized understanding. Previous labs reviewed. Patient discharged in stable condition with after care instructions and follow up appointment. NOTE DOBUTAMINE [id number] ADMIN BY SLOANE CULVER
== END | disposition home or self-care (01) ==
LOC: CHF HDHVI 08:01
PROVIDERS: ATTEND Internal Medicine Cardiovascular Disease
DX: I11.0 Hypertensive heart disease with heart failure (principal); I50.42 Chronic combined systolic (congestive) and diastolic (congestive) heart failure; I25.10 Atherosclerotic heart disease of native coronary artery without angina pectoris; I42.8 Other cardiomyopathies; I48.91 Unspecified atrial fibrillation; I27.21 Secondary pulmonary arterial hypertension; J43.9 Emphysema, unspecified; E78.5 Hyperlipidemia, unspecified; I25.2 Old myocardial infarction; E78.00 Pure hypercholesterolemia, unspecified; E11.9 Type 2 diabetes mellitus without complications; M19.90 Unspecified osteoarthritis, unspecified site; E43 Unspecified severe protein-calorie malnutrition; Z90.49 Acquired absence of other specified parts of digestive tract; Z95.5 Presence of coronary angioplasty implant and graft; Z79.01 Long term (current) use of anticoagulants; Z87.891 Personal history of nicotine dependence; Z95.1 Presence of aortocoronary bypass graft; Z95.810 Presence of automatic (implantable) cardiac defibrillator; Z79.899 Other long term (current) drug therapy
CPT/HCPCS: 96365; 96366; G0463; J1250

== ENCOUNTER → 2018-12-24 | Outpatient (CLI) | payer MEDICARE ==
[2018-12-24] VITALS (10 sets, daily range): BP systolic 94–157; BP diastolic 46–72
--- NOTE | 2018-12-24 08:00 | NUR ---
CHF PT ARRIVED TO THE CHF CLINIC A/O X 3 0 DISTRESS. V/S STABLE 0 DISTRESS
--- NOTE | 2018-12-24 08:05 | NUR ---
IV insertion IV access obtained, via clean sterile technique by inserting 22 gauge catheter at [LFA) TOLERATED procedure well.
--- NOTE | 2018-12-24 11:35 | NUR ---
IV removal IV DC'd with sterile technique, catheter fully intact. Pressure dressing applied to site. Patient tolerated procedure well. Discharged with aftercare instructions per MD. NOTE:
--- NOTE | 2018-12-24 11:40 | NUR ---
Discharge Instructions See e-MAR for any mediations given with this visit. Patient education given on disease process. Patient verbalized understanding. Previous labs reviewed. Patient discharged in stable condition with after care instructions and follow up appointment. MEDICATIONS 0808 START TIME DOBUTAMINE DRIP 5 MCG/KG/MIN 1115 STOP TIME DOBUTAMINE DRIP
[2018-12-24 12:39] LABS: Potassium 4.2 mmol/L (3.5-5.1)
[2018-12-24 12:58] LABS: BUN/Creatinine Ratio 25.5; Calcium 8.6 mg/dL (8.5-10.1)
== END | disposition home or self-care (01) ==
LOC: CHF HDHVI 08:05
PROVIDERS: ATTEND Internal Medicine Cardiovascular Disease
DX: I11.0 Hypertensive heart disease with heart failure (principal); I50.42 Chronic combined systolic (congestive) and diastolic (congestive) heart failure; J43.9 Emphysema, unspecified; I25.10 Atherosclerotic heart disease of native coronary artery without angina pectoris; I48.91 Unspecified atrial fibrillation; I27.21 Secondary pulmonary arterial hypertension; I42.8 Other cardiomyopathies; I25.2 Old myocardial infarction; M19.90 Unspecified osteoarthritis, unspecified site; E78.00 Pure hypercholesterolemia, unspecified; E78.5 Hyperlipidemia, unspecified; E11.9 Type 2 diabetes mellitus without complications; E43 Unspecified severe protein-calorie malnutrition; Z79.899 Other long term (current) drug therapy; Z87.891 Personal history of nicotine dependence; Z90.49 Acquired absence of other specified parts of digestive tract; Z79.01 Long term (current) use of anticoagulants; Z95.1 Presence of aortocoronary bypass graft; Z95.810 Presence of automatic (implantable) cardiac defibrillator; Z95.5 Presence of coronary angioplasty implant and graft
CPT/HCPCS: 36415; 80048; 83036; 83880; 96365; 96366; G0463; J1250

== ENCOUNTER → 2018-12-27 | Outpatient (CLI) | payer MEDICARE ==
[2018-12-27] VITALS (10 sets, daily range): BP systolic 100–154; BP diastolic 44–62
[~2018-12-27] MED LIST changes: +ACETAMINOPHEN 500 MG TAB PO ONE; -ENA2.5T PO; +ENAL2.5T2 PO
--- NOTE | 2018-12-27 08:13 | NUR ---
CHF PT ARRIVED AT THE CHF CLINIC FOR WEEKLY THERAPY. PT A/O X 3 0 DISTRESS. V/S STABLE
--- NOTE | 2018-12-27 08:20 | NUR ---
IV insertion IV access obtained, via clean sterile technique by inserting 22 gauge catheter at after attempt(s). IV secured properly. No trauma to site. Patient tolerated procedure well.
--- NOTE | 2018-12-27 11:50 | NUR ---
IV removal IV DC'd with sterile technique, catheter fully intact. Pressure dressing applied to site. Patient tolerated procedure well. Discharged with aftercare instructions per MD. NOTE:
--- NOTE | 2018-12-27 11:58 | NUR ---
Discharge Instructions See e-MAR for any mediations given with this visit. Patient education given on disease process. Patient verbalized understanding. Previous labs reviewed. Patient discharged in stable condition with after care instructions and follow up appointment. MEDICATIONS START TIME 0830 DOBUTAMINE DRIP 5MCG/KG/MIN STOP TIME 1140 TYLENOL 500 MG PO X 1
== END | disposition home or self-care (01) ==
LOC: CHF HDHVI 08:17
PROVIDERS: ATTEND Internal Medicine Cardiovascular Disease
DX: I11.0 Hypertensive heart disease with heart failure (principal); I50.42 Chronic combined systolic (congestive) and diastolic (congestive) heart failure; I25.10 Atherosclerotic heart disease of native coronary artery without angina pectoris; J44.9 Chronic obstructive pulmonary disease, unspecified; E78.5 Hyperlipidemia, unspecified; I27.21 Secondary pulmonary arterial hypertension; I25.2 Old myocardial infarction; I42.8 Other cardiomyopathies; E78.00 Pure hypercholesterolemia, unspecified; M19.90 Unspecified osteoarthritis, unspecified site; E11.9 Type 2 diabetes mellitus without complications; I48.91 Unspecified atrial fibrillation; Z79.899 Other long term (current) drug therapy; Z87.891 Personal history of nicotine dependence; Z95.1 Presence of aortocoronary bypass graft; Z95.810 Presence of automatic (implantable) cardiac defibrillator; Z79.01 Long term (current) use of anticoagulants; Z90.49 Acquired absence of other specified parts of digestive tract; Z95.5 Presence of coronary angioplasty implant and graft
CPT/HCPCS: 96365; 96366; G0463; J1250; J7030

== ENCOUNTER → 2018-12-31 | Outpatient (CLI) | payer MEDICARE ==
[2018-12-31] VITALS (9 sets, daily range): BP systolic 114–178; BP diastolic 59–80
[~2018-12-31] MED LIST changes: -ACETAMINOPHEN 500 MG TAB PO ONE; +ENA2.5T PO; -ENAL2.5T2 PO
--- NOTE | 2018-12-31 08:00 | NUR ---
IN FOR SCHEDULED INFUSION. WITHOUT DISTRESS OR DISCOMFORT. VS WNL. AFFECT CHEERFUL AND PLEASANT ,
--- NOTE | 2018-12-31 08:13 | NUR ---
IV insertion IV access obtained, via clean sterile technique by inserting 22 gauge catheter at after attempt(s). IV secured properly. No trauma to site. Patient tolerated procedure well. Clinic Provider Clinic Provider into see pt with new orders received and carried out. Dobutamine gtt started at {5}mcg/kg/hr per MD order.
--- NOTE | 2018-12-31 09:00 | NUR ---
dobutamine ongoing. tolerated well. vs wnl.
--- NOTE | 2018-12-31 11:40 | NUR ---
chf INFUSION COMPLETED. TOLERATED WELL. WITHOUT DISTRESS AND WITHOUT DISCOMFORT. IV SITE TO RIGHT FOREARM DCD AND SITE BENIGN POST INFUSION. DISCHARGED TO SELF CARE. MEDICATION ADMINISTRATION DOBUTAMINE GTT AT 5 MCG/KG/MIN START AT 0813/STOP AT 1130 (18.21 ML/HR)
[2018-12-31 12:09] LABS: Calcium 8.7 mg/dL (8.5-10.1)
[2018-12-31 12:10] LABS: Basophils # (auto) 0.1 uL; Basophils % (auto) 1.2 % (0.0-2.0); Eosinophils # (auto) 0.3 uL; Eosinophils % (auto) 5.7 % (0.0-7.0); Hematocrit 32.4 % (41.0-53.0); Hemoglobin 10.7 g/dL (13.5-17.5); Lymphocytes # (auto) 0.5 uL; Mean Corpuscular Hemoglobin 30.5 pg (28.0-32.0); Mean Corpuscular Volume 92.4 fL (80.0-100.0); Monocytes # (auto) 0.5 uL; Monocytes % (auto) 9.2 % (0.0-12.0); Neutrophils # (auto) 3.7 uL; Neutrophils % (auto) 73.9 % (37.0-80.0); Nucleated Red Blood Cells % 0.1 %; Platelet Count (auto) 281 10^3/uL (140-450); Red Cell Distribution Width 15.3 % (11.8-14.3)
--- NOTE | 2018-12-31 14:00 | NUR ---
LABS RETURNED AND REVIEWED BY CLINIC PROVIDER. PT TO DOUBLE LASIX DOSE NEXT 3 DAYS AND THEN RTC ON MONDAY . ADDITIONAL LABS TO BE DRAWN ON MONDAY. PT REPEATED BACK INSTRUCTIONS.
== END | disposition home or self-care (01) ==
LOC: CHF HDHVI 08:08
PROVIDERS: ATTEND Internal Medicine Cardiovascular Disease
DX: I11.0 Hypertensive heart disease with heart failure (principal); I50.23 Acute on chronic systolic (congestive) heart failure; I50.32 Chronic diastolic (congestive) heart failure; D64.9 Anemia, unspecified; J44.9 Chronic obstructive pulmonary disease, unspecified; I48.91 Unspecified atrial fibrillation; I25.10 Atherosclerotic heart disease of native coronary artery without angina pectoris; E78.5 Hyperlipidemia, unspecified; I25.2 Old myocardial infarction; E78.00 Pure hypercholesterolemia, unspecified; E11.9 Type 2 diabetes mellitus without complications; M19.90 Unspecified osteoarthritis, unspecified site; E43 Unspecified severe protein-calorie malnutrition; Z87.01 Personal history of pneumonia (recurrent); Z90.49 Acquired absence of other specified parts of digestive tract; Z79.01 Long term (current) use of anticoagulants; Z79.899 Other long term (current) drug therapy; Z87.891 Personal history of nicotine dependence; Z95.1 Presence of aortocoronary bypass graft; Z95.810 Presence of automatic (implantable) cardiac defibrillator; Z95.5 Presence of coronary angioplasty implant and graft
CPT/HCPCS: 36415; 80048; 83880; 85025; 96365; 96366; G0463; J1250

== ENCOUNTER → 2019-01-04 | Outpatient (CLI) | payer MEDICARE ==
[~2019-01-04] VITALS: Ht 177.8 cm; Wt 58.3 kg
[2019-01-04] VITALS (10 sets, daily range): BP systolic 94–148; BP diastolic 53–73
[~2019-01-04] MED LIST changes: -ENA2.5T PO; +ENAL2.5T2 PO
--- NOTE | 2019-01-04 08:00 | NUR ---
IV insertion IV access obtained, via clean sterile technique by inserting 22 gauge catheter at LFA after 1 attempt(s). IV secured properly. No trauma to site. Patient tolerated procedure well.
--- NOTE | 2019-01-04 12:00 | NUR ---
CHF CLINIC Discharge Instructions See e-MAR for any mediations given with this visit. Patient education given on disease process. Patient verbalized understanding. Previous labs reviewed. Patient discharged in stable condition with after care instructions and follow up appointment. NOTE DOBUTAMINE [id number] ADMIN BY ARIK CULVER
== END | disposition home or self-care (01) ==
LOC: CHF HDHVI 08:10
PROVIDERS: ATTEND Internal Medicine Cardiovascular Disease
DX: I11.0 Hypertensive heart disease with heart failure (principal); I50.42 Chronic combined systolic (congestive) and diastolic (congestive) heart failure; I25.10 Atherosclerotic heart disease of native coronary artery without angina pectoris; I27.21 Secondary pulmonary arterial hypertension; I42.8 Other cardiomyopathies; I48.91 Unspecified atrial fibrillation; I25.2 Old myocardial infarction; E43 Unspecified severe protein-calorie malnutrition; R06.02 Shortness of breath; E78.5 Hyperlipidemia, unspecified; E78.00 Pure hypercholesterolemia, unspecified; E11.9 Type 2 diabetes mellitus without complications; M19.90 Unspecified osteoarthritis, unspecified site; N40.0 Benign prostatic hyperplasia without lower urinary tract symptoms; J43.9 Emphysema, unspecified; Z90.49 Acquired absence of other specified parts of digestive tract; Z87.891 Personal history of nicotine dependence; Z95.5 Presence of coronary angioplasty implant and graft; Z95.1 Presence of aortocoronary bypass graft; Z79.899 Other long term (current) drug therapy; Z79.01 Long term (current) use of anticoagulants; Z95.810 Presence of automatic (implantable) cardiac defibrillator
CPT/HCPCS: 96365; 96366; G0463; J1250

== ENCOUNTER → 2019-01-07 | Outpatient (CLI) | payer MEDICARE ==
--- NOTE | 2019-01-07 08:00 | NUR ---
IN TO CLINIC FOR SCHEDULED INFUSION. VS WNL. WITHOUT DISTRESS.
--- NOTE | 2019-01-07 08:15 | NUR ---
IV insertion IV access obtained, via clean sterile technique by inserting 22 gauge catheter at after attempt(s). IV secured properly. No trauma to site. Patient tolerated procedure well. Clinic Provider Clinic Provider into see pt with new orders received and carried out. Dobutamine gtt started at {5}mcg/kg/hr per order. Addendum: 01/07/19 at 0851 by ODALYS KELLER RN [place] AMEND IV START TIME TO 0825
[2019-01-07 08:25] VITALS: BP 107/51
[2019-01-07 08:45] VITALS: BP 129/53
[2019-01-07 09:00] VITALS: BP 133/53
--- NOTE | 2019-01-07 10:00 | NUR ---
DOBUTAMINE IN PROGRESS. VS WNL. TOLERATING WELL.
[2019-01-07 11:27] VITALS: BP 108/60
--- NOTE | 2019-01-07 11:27 | NUR ---
CHF COMPLETED INFUSION WELL. VS WNL. IV SITE BENIGN POST INFUSION. MEDICATION ADMINISTRATION DOBUTAMINE GTT AT 5 MCG/ KG/MIN START AT 0825/STOP AT 1125 (17.74 ML/HR )
[2019-01-07 12:11] LABS: Basophils # (auto) 0.1 uL; Basophils % (auto) 1.2 % (0.0-2.0); Eosinophils # (auto) 0.2 uL; Eosinophils % (auto) 3.9 % (0.0-7.0); Hemoglobin 11.4 g/dL (13.5-17.5); Lymphocytes # (auto) 0.7 uL; Lymphocytes % (auto) 10.8 % (10.0-50.0); Mean Corpuscular Hemoglobin 30.7 pg (28.0-32.0); Mean Corpuscular Hgb Conc. 33.4 g/dL (32.0-36.0); Mean Corpuscular Volume 91.7 fL (80.0-100.0); Monocytes # (auto) 0.6 uL; Monocytes % (auto) 9.4 % (0.0-12.0); Neutrophils # (auto) 4.6 uL; Neutrophils % (auto) 74.7 % (37.0-80.0); Platelet Count (auto) 291 10^3/uL (140-450); Red Blood Cells 3.71 10^6/uL (4.5-5.90); Red Cell Distribution Width 15.2 % (11.8-14.3); White Blood Cell 6.2 10^3/uL (4.4-10.8)
[2019-01-07 12:22] LABS: BUN/Creatinine Ratio 26.5; Calcium 8.3 mg/dL (8.5-10.1); Potassium 4.1 mmol/L (3.5-5.1)
== END | disposition home or self-care (01) ==
LOC: CHF HDHVI 08:24
PROVIDERS: ATTEND Internal Medicine Cardiovascular Disease
DX: I11.0 Hypertensive heart disease with heart failure (principal); I50.42 Chronic combined systolic (congestive) and diastolic (congestive) heart failure; I25.10 Atherosclerotic heart disease of native coronary artery without angina pectoris; D64.9 Anemia, unspecified; I25.2 Old myocardial infarction; I42.8 Other cardiomyopathies; I48.91 Unspecified atrial fibrillation; I27.21 Secondary pulmonary arterial hypertension; J44.9 Chronic obstructive pulmonary disease, unspecified; E78.5 Hyperlipidemia, unspecified; M19.90 Unspecified osteoarthritis, unspecified site; E43 Unspecified severe protein-calorie malnutrition; E78.00 Pure hypercholesterolemia, unspecified; E11.9 Type 2 diabetes mellitus without complications; Z79.899 Other long term (current) drug therapy; Z87.891 Personal history of nicotine dependence; Z95.1 Presence of aortocoronary bypass graft; Z95.810 Presence of automatic (implantable) cardiac defibrillator; Z95.5 Presence of coronary angioplasty implant and graft; Z79.01 Long term (current) use of anticoagulants; Z90.49 Acquired absence of other specified parts of digestive tract
CPT/HCPCS: 36415; 80048; 83880; 85025; 96365; 96366; G0463; J1250

== ENCOUNTER → 2019-01-10 | Outpatient (CLI) | payer MEDICARE ==
[~2019-01-10] VITALS: Ht 179.1 cm; Wt 60.3 kg
[~2019-01-10] MED LIST changes: +ADENOSINE 51 MG in GIVE UN-DILUTED 0 ML IV ONE; +ADENOSINE 90 MG/30 ML INJ IV ONE; -DOBUTamine 1000MCG/ML 250 ML IV ONE
== END | disposition home or self-care (01) ==
LOC: CHF HDHVI 08:47
PROVIDERS: ATTEND Internal Medicine Cardiovascular Disease
DX: I25.5 Ischemic cardiomyopathy (principal); I11.0 Hypertensive heart disease with heart failure; I50.23 Acute on chronic systolic (congestive) heart failure; E78.00 Pure hypercholesterolemia, unspecified; G20 Parkinson's disease; J44.9 Chronic obstructive pulmonary disease, unspecified
CPT/HCPCS: 78452; 93005; 96374; 96375; A9500; J0153

== ENCOUNTER → 2019-01-11 | Outpatient (CLI) | payer MEDICARE ==
[~2019-01-11] MED LIST changes: -ADENOSINE 51 MG in GIVE UN-DILUTED 0 ML IV ONE; -ADENOSINE 90 MG/30 ML INJ IV ONE; +DOBUTamine 1000MCG/ML 250 ML IV ONE
--- NOTE | 2019-01-11 08:10 | NUR ---
CARDIODYNAMICS DONE AND REVIEWED.
[2019-01-11 08:20] VITALS: BP 132/61
--- NOTE | 2019-01-11 08:20 | NUR ---
IN TO CLINIC FOR SCHEDULED INFUSION. AFFECT CHEERFUL AND WITHOUT DISTRESS. IV insertion IV access obtained, via clean sterile technique by inserting 22 gauge catheter at after attempt(s). IV secured properly. No trauma to site. Patient tolerated procedure well.
[2019-01-11 08:45] VITALS: BP 161/68
[2019-01-11 09:00] VITALS: BP 162/60
[2019-01-11 09:15] VITALS: BP 148/65
[2019-01-11 09:30] VITALS: BP 152/65
--- NOTE | 2019-01-11 10:00 | NUR ---
DOBUTAMINE GTT ONGOING AND INFUSING WITHOUT INCIDENT.
[2019-01-11 11:33] VITALS: BP 141/68
--- NOTE | 2019-01-11 11:33 | NUR ---
CHF INFUSION COMPLETED AND IV SITE BENIGN POST USE. TOLERATED WELL. VS WNL. Discharge Instructions See e-MAR for any mediations given with this visit. Patient education given on disease process. Patient verbalized understanding. Previous labs reviewed. Patient discharged in stable condition with after care instructions and follow up appointment FOR Monday01/14/19. MEDICATION ADMINISTRATION DOBUTAMINE GTT AT 5 MCG/KG/MIN START AT 0820/STOP AT 1125 (17.67 ML/HR)
== END | disposition home or self-care (01) ==
LOC: CHF HDHVI 08:11
PROVIDERS: ATTEND Internal Medicine Cardiovascular Disease
DX: I11.0 Hypertensive heart disease with heart failure (principal); I50.42 Chronic combined systolic (congestive) and diastolic (congestive) heart failure; I25.10 Atherosclerotic heart disease of native coronary artery without angina pectoris; J44.9 Chronic obstructive pulmonary disease, unspecified; I48.91 Unspecified atrial fibrillation; I25.2 Old myocardial infarction; I42.8 Other cardiomyopathies; I27.21 Secondary pulmonary arterial hypertension; E78.5 Hyperlipidemia, unspecified; E11.9 Type 2 diabetes mellitus without complications; M19.90 Unspecified osteoarthritis, unspecified site; E43 Unspecified severe protein-calorie malnutrition; E78.00 Pure hypercholesterolemia, unspecified; Z95.5 Presence of coronary angioplasty implant and graft; Z87.891 Personal history of nicotine dependence; Z95.1 Presence of aortocoronary bypass graft; Z79.01 Long term (current) use of anticoagulants; Z79.899 Other long term (current) drug therapy; Z90.49 Acquired absence of other specified parts of digestive tract; Z95.810 Presence of automatic (implantable) cardiac defibrillator
CPT/HCPCS: 93701; 96365; 96366; G0463; J1250

== ENCOUNTER → 2019-01-14 | Outpatient (CLI) | payer MEDICARE ==
[2019-01-14] VITALS (9 sets, daily range): BP systolic 106–125; BP diastolic 50–65
--- NOTE | 2019-01-14 08:15 | NUR ---
IV insertion IV access obtained by Chrissie CULVER, via clean sterile technique by inserting 22 gauge catheter at LFA after 1 attempt(s). IV secured properly. No trauma to site. Patient tolerated procedure well.
--- NOTE | 2019-01-14 11:20 | NUR ---
IV removal IV DC'd with sterile technique, catheter fully intact. Pressure dressing applied to site. Patient tolerated procedure well.
--- NOTE | 2019-01-14 11:27 | NUR ---
CHF CLINIC Discharge Instructions See e-MAR for any mediations given with this visit. Patient education given on disease process. Patient verbalized understanding. Previous labs reviewed. Patient discharged in stable condition with after care instructions and follow up appointment. NOTE DOBUTAMINE [id number] ADMIN BY ODALYS CULVER
[2019-01-14 12:22] LABS: Basophils # (auto) 0.1 uL; Basophils % (auto) 1.6 % (0.0-2.0); Eosinophils # (auto) 0.3 uL; Eosinophils % (auto) 5.4 % (0.0-7.0); Hemoglobin 11.3 g/dL (13.5-17.5); Lymphocytes # (auto) 0.6 uL; Lymphocytes % (auto) 12.2 % (10.0-50.0); Mean Corpuscular Hemoglobin 30.3 pg (28.0-32.0); Mean Corpuscular Hgb Conc. 33.1 g/dL (32.0-36.0); Mean Corpuscular Volume 91.5 fL (80.0-100.0); Monocytes # (auto) 0.5 uL; Monocytes % (auto) 9.8 % (0.0-12.0); Neutrophils # (auto) 3.8 uL; Platelet Count (auto) 298 10^3/uL (140-450); Red Blood Cells 3.71 10^6/uL (4.5-5.90); White Blood Cell 5.3 10^3/uL (4.4-10.8)
[2019-01-14 12:27] LABS: Potassium 4.1 mmol/L (3.5-5.1)
[2019-01-14 12:47] LABS: BUN/Creatinine Ratio 21.1; Calcium 8.6 mg/dL (8.5-10.1)
== END | disposition home or self-care (01) ==
LOC: CHF HDHVI 08:06
PROVIDERS: ATTEND Internal Medicine Cardiovascular Disease
DX: I11.0 Hypertensive heart disease with heart failure (principal); I50.23 Acute on chronic systolic (congestive) heart failure; I25.10 Atherosclerotic heart disease of native coronary artery without angina pectoris; D64.9 Anemia, unspecified; J44.9 Chronic obstructive pulmonary disease, unspecified; I27.21 Secondary pulmonary arterial hypertension; I48.91 Unspecified atrial fibrillation; I42.8 Other cardiomyopathies; E78.00 Pure hypercholesterolemia, unspecified; E78.5 Hyperlipidemia, unspecified; I25.2 Old myocardial infarction; E11.9 Type 2 diabetes mellitus without complications; M19.90 Unspecified osteoarthritis, unspecified site; E43 Unspecified severe protein-calorie malnutrition; Z95.1 Presence of aortocoronary bypass graft; Z95.5 Presence of coronary angioplasty implant and graft; Z79.01 Long term (current) use of anticoagulants; Z90.49 Acquired absence of other specified parts of digestive tract; Z87.891 Personal history of nicotine dependence; Z95.810 Presence of automatic (implantable) cardiac defibrillator; Z79.899 Other long term (current) drug therapy
CPT/HCPCS: 36415; 80048; 83880; 85025; 96365; 96366; G0463; J1250

== ENCOUNTER → 2019-01-18 | Outpatient (CLI) | payer MEDICARE ==
[2019-01-18] VITALS (9 sets, daily range): BP systolic 99–149; BP diastolic 47–73
--- NOTE | 2019-01-18 08:00 | NUR ---
IV insertion IV access obtained by Marianne CULVER, via clean sterile technique by inserting 22 gauge catheter at LFA after 1 attempt(s). IV secured properly. No trauma to site. Patient tolerated procedure well.
--- NOTE | 2019-01-18 11:00 | NUR ---
IN FOR SCHEDULED INFUSIONS. Whitney Cath Insertion 20 gauge Whitney Cath inserted using sterile technique in the upper chest with occlusive dressing over franco needle. Patient tolerated procedure well. See e-MAR for medications given during this visit. CLINIC PROVIDER CONSULTED AND ORDERS RECIEVED AND CARRIED OUT. DOBUTAMINE INFUSION AT 5 MCG/KG/MIN, TOLERATED WELL. WITHOUT DISTRESS AND VITALS REMAINED WNL DURING ENTIRE INFUSION. PT VISITED WITH OTHER PATIENTS AND STAFF. Discharge Instructions See e-MAR for any mediations given with this visit. Patient education given on disease process. Patient verbalized understanding. Previous labs reviewed. Patient discharged in stable condition with after care instructions and follow up appointment. MEDICATION ADMINISTRATION DOBUTAMINE INFUSION AT 5 MCG/KG/MIN START AT 0749/STOP AT 1055 (26.1 ML/HR) HEPARIN 500 UNITS IVP AT 1055 Addendum: 01/18/19 at 1241 by ODALYS KELLER RN [place] NOTE AMENDED. WRITTEN IN ERROR. WRONG PATIENT.
--- NOTE | 2019-01-18 11:25 | NUR ---
IV removal IV DC'd with sterile technique, catheter fully intact. Pressure dressing applied to site. Patient tolerated procedure well.
--- NOTE | 2019-01-18 11:26 | NUR ---
CHF CLINIC Discharge Instructions See e-MAR for any mediations given with this visit. Patient education given on disease process. Patient verbalized understanding. Previous labs reviewed. Patient discharged in stable condition with after care instructions and follow up appointment ON MONDAY. NOTE DOBUTAMINE [id number] ADMIN BY ODALYS CULVER. Addendum: 01/18/19 at 1240 by ODALYS KELLER RN [place] PREVIOUS NOTE AMENDED, WRITTEN IN ERROR ON WRONG PATIENT. POST CHF INTERVENTION ALSO WRITTEN IN ERROR, CHARTED ON WRONG PATIENT. Addendum: 01/18/19 at 1245 by ODALYS KELLER RN [place] SECOND AMENDMENT. PREVIOUS AMENDMENT RETRACTED. NOTE WRITTEN BY ARIK Braxton RN CORRECT ORIGINALLY WRITTEN. AMENDMENT BY ODALYS CULVER ON THIS NOTE IS IN ERROR.
== END | disposition home or self-care (01) ==
LOC: CHF HDHVI 08:16
PROVIDERS: ATTEND Internal Medicine Cardiovascular Disease
DX: I11.0 Hypertensive heart disease with heart failure (principal); I50.42 Chronic combined systolic (congestive) and diastolic (congestive) heart failure; I25.10 Atherosclerotic heart disease of native coronary artery without angina pectoris; I27.21 Secondary pulmonary arterial hypertension; I25.2 Old myocardial infarction; I42.8 Other cardiomyopathies; I48.91 Unspecified atrial fibrillation; J44.9 Chronic obstructive pulmonary disease, unspecified; E78.00 Pure hypercholesterolemia, unspecified; E78.5 Hyperlipidemia, unspecified; E11.9 Type 2 diabetes mellitus without complications; M19.90 Unspecified osteoarthritis, unspecified site; E43 Unspecified severe protein-calorie malnutrition; Z90.49 Acquired absence of other specified parts of digestive tract; Z95.1 Presence of aortocoronary bypass graft; Z79.899 Other long term (current) drug therapy; Z95.5 Presence of coronary angioplasty implant and graft; Z95.810 Presence of automatic (implantable) cardiac defibrillator; Z87.891 Personal history of nicotine dependence; Z79.01 Long term (current) use of anticoagulants
CPT/HCPCS: 96365; 96366; G0463; J1250

== ENCOUNTER → 2019-01-21 | Outpatient (CLI) | payer MEDICARE ==
[2019-01-21] VITALS (7 sets, daily range): BP systolic 101–156; BP diastolic 48–69
--- NOTE | 2019-01-21 11:20 | NUR ---
IV removal IV DC'd with sterile technique, catheter fully intact. Pressure dressing applied to site. Patient tolerated procedure well. Discharged with aftercare instructions per MD. NOTE: BY FABRIZIO CULVER
--- NOTE | 2019-01-21 11:26 | NUR ---
Discharge Instructions See e-MAR for any mediations given with this visit. Patient education given on disease process. Patient verbalized understanding. Previous labs reviewed. Patient discharged in stable condition with after care instructions and follow up appointment. MEDICATIONS DOBUTAMINE DRIP MCG/KG/MIN X 3 HRS [id number]
[2019-01-21 12:19] LABS: Basophils # (auto) 0.1 uL; Eosinophils # (auto) 0.3 uL; Eosinophils % (auto) 5.4 % (0.0-7.0); Hematocrit 33.4 % (41.0-53.0); Hemoglobin 10.9 g/dL (13.5-17.5); Lymphocytes # (auto) 0.8 uL; Lymphocytes % (auto) 14.2 % (10.0-50.0); Mean Corpuscular Hemoglobin 29.9 pg (28.0-32.0); Mean Corpuscular Hgb Conc. 32.7 g/dL (32.0-36.0); Mean Corpuscular Volume 91.4 fL (80.0-100.0); Monocytes # (auto) 0.5 uL; Monocytes % (auto) 9.5 % (0.0-12.0); Neutrophils # (auto) 3.9 uL; Neutrophils % (auto) 69.9 % (37.0-80.0); Platelet Count (auto) 280 10^3/uL (140-450); Red Blood Cells 3.65 10^6/uL (4.5-5.90); Red Cell Distribution Width 14.8 % (11.8-14.3); White Blood Cell 5.6 10^3/uL (4.4-10.8)
[2019-01-21 14:07] LABS: BUN/Creatinine Ratio 26.5; Calcium 8.9 mg/dL (8.5-10.1); Potassium 4.3 mmol/L (3.5-5.1)
== END | disposition home or self-care (01) ==
LOC: CHF HDHVI 08:21
PROVIDERS: ATTEND Internal Medicine Cardiovascular Disease
DX: I11.0 Hypertensive heart disease with heart failure (principal); I50.42 Chronic combined systolic (congestive) and diastolic (congestive) heart failure; I25.10 Atherosclerotic heart disease of native coronary artery without angina pectoris; D64.9 Anemia, unspecified; I25.2 Old myocardial infarction; I42.8 Other cardiomyopathies; I27.21 Secondary pulmonary arterial hypertension; I48.91 Unspecified atrial fibrillation; J44.9 Chronic obstructive pulmonary disease, unspecified; E78.5 Hyperlipidemia, unspecified; E11.9 Type 2 diabetes mellitus without complications; M19.90 Unspecified osteoarthritis, unspecified site; E43 Unspecified severe protein-calorie malnutrition; Z79.899 Other long term (current) drug therapy; Z79.01 Long term (current) use of anticoagulants; Z95.1 Presence of aortocoronary bypass graft; Z90.49 Acquired absence of other specified parts of digestive tract; Z95.5 Presence of coronary angioplasty implant and graft; Z87.891 Personal history of nicotine dependence; Z95.810 Presence of automatic (implantable) cardiac defibrillator
CPT/HCPCS: 36415; 80048; 83880; 85025; 96365; 96366; G0463; J1250

== ENCOUNTER → 2019-01-25 | Outpatient (CLI) | payer MEDICARE ==
[~2019-01-25] VITALS: Ht 179.1 cm; Wt 57.7 kg
[2019-01-25] VITALS (7 sets, daily range): BP systolic 94–155; BP diastolic 44–67
[~2019-01-25] MED LIST changes: +CYANOCOBALAMIN (B-12) 1000 MCG/1 ML VIAL IM ONE; +CYANOCOBALAMIN (B-12) 1000 MCG/1 ML VIAL ONE
--- NOTE | 2019-01-25 08:00 | NUR ---
PT. TO CHF CLINIC FOR DOBUTAMINE INFUSION PER MD ORDER. PT. STATES HE HAS BEEN HAVING SOB MORE RECENTLY, BUT HAS NOT USED INHALER. ORDERS RECEIVED AND CARRIED OUT. SEE NSG ASSESS.
--- NOTE | 2019-01-25 08:10 | NUR ---
IV insertion IV access obtained, via clean sterile technique by inserting 22 gauge catheter at after attempt(s). IV secured properly. No trauma to site. Patient tolerated procedure well. LAB DRAWN AND SENT.
--- NOTE | 2019-01-25 08:15 | NUR ---
Clinic Provider Clinic Provider into see pt with new orders received and carried out. Dobutamine gtt started at {5}mcg/kg/hr per MD order.
--- NOTE | 2019-01-25 08:30 | NUR ---
MEDS: PT. MEDICATED WITH VIT. B12 1000MCG IM LFT DELT. PER ORDER.
--- NOTE | 2019-01-25 11:20 | NUR ---
IV removal IV DC'd with sterile technique, catheter fully intact. Pressure dressing applied to site. Patient tolerated procedure well.
--- NOTE | 2019-01-25 11:25 | NUR ---
CHF CLINIC Discharge Instructions See e-MAR for any mediations given with this visit. Patient education given on disease process. Patient verbalized understanding. Previous labs reviewed. Patient discharged in stable condition with after care instructions and follow up appointment. NOTE DOBUTAMINE [id number] ADMIN BY SLOANE CULVER B12 IM L DELTOID ADMIN BY ANTONELLA LUNA
== END | disposition home or self-care (01) ==
LOC: CHF HDHVI 08:00
PROVIDERS: ATTEND Internal Medicine Cardiovascular Disease
DX: I11.0 Hypertensive heart disease with heart failure (principal); I50.23 Acute on chronic systolic (congestive) heart failure; I25.10 Atherosclerotic heart disease of native coronary artery without angina pectoris; D64.9 Anemia, unspecified; I27.21 Secondary pulmonary arterial hypertension; I42.8 Other cardiomyopathies; I25.2 Old myocardial infarction; I48.91 Unspecified atrial fibrillation; J44.9 Chronic obstructive pulmonary disease, unspecified; E78.5 Hyperlipidemia, unspecified; E11.9 Type 2 diabetes mellitus without complications; M19.90 Unspecified osteoarthritis, unspecified site; E43 Unspecified severe protein-calorie malnutrition; E78.00 Pure hypercholesterolemia, unspecified; Z95.810 Presence of automatic (implantable) cardiac defibrillator; Z95.1 Presence of aortocoronary bypass graft; Z87.891 Personal history of nicotine dependence; Z79.01 Long term (current) use of anticoagulants; Z95.5 Presence of coronary angioplasty implant and graft; Z79.899 Other long term (current) drug therapy; Z90.49 Acquired absence of other specified parts of digestive tract
CPT/HCPCS: 83880; 96365; 96366; 96372; G0463; J1250; J3420

== ENCOUNTER → 2019-01-28 | Outpatient (CLI) | payer MEDICARE ==
[2019-01-28] VITALS (8 sets, daily range): BP systolic 121–163; BP diastolic 52–81
[~2019-01-28] VITALS: Ht 30.5 cm; Wt 58.1 kg
[~2019-01-28] MED LIST changes: -CYANOCOBALAMIN (B-12) 1000 MCG/1 ML VIAL IM ONE; -CYANOCOBALAMIN (B-12) 1000 MCG/1 ML VIAL ONE
--- NOTE | 2019-01-28 07:55 | NUR ---
CHF PT ARRIVED AT THE CHF CLINIC FOR WEEKLY THERAPY, ALERT AND ORIENTED 0 DISTRESS, VSS
--- NOTE | 2019-01-28 08:00 | NUR ---
IV insertion IV access obtained, via clean sterile technique by inserting 22 gauge catheter at after attempt(s). IV secured properly. No trauma to site. Patient tolerated procedure well.
--- NOTE | 2019-01-28 08:55 | NUR ---
CHF PT ARRIVED AT THE CHF CLINIC FOR THERAPY. A/O X 3 0 DISTRESS. VSS Addendum: 01/28/19 at 0916 by MARLEN BARAHONA RN RN OK WRONG PT
--- NOTE | 2019-01-28 11:48 | NUR ---
Discharge Instructions See e-MAR for any mediations given with this visit. Patient education given on disease process. Patient verbalized understanding. Previous labs reviewed. Patient discharged in stable condition with after care instructions and follow up appointment. MEDS DOBUTAMINE DRIP [id number] IV removal IV DC'd with sterile technique, catheter fully intact. Pressure dressing applied to site. Patient tolerated procedure well. Discharged with aftercare instructions per MD. NOTE: BY SLOANE CULVER
== END | disposition home or self-care (01) ==
LOC: CHF HDHVI 08:21
PROVIDERS: ATTEND Internal Medicine Cardiovascular Disease
DX: I11.0 Hypertensive heart disease with heart failure (principal); I50.42 Chronic combined systolic (congestive) and diastolic (congestive) heart failure; I25.10 Atherosclerotic heart disease of native coronary artery without angina pectoris; I25.2 Old myocardial infarction; I48.91 Unspecified atrial fibrillation; I42.8 Other cardiomyopathies; R53.83 Other fatigue; J44.9 Chronic obstructive pulmonary disease, unspecified; E78.5 Hyperlipidemia, unspecified; E78.00 Pure hypercholesterolemia, unspecified; E11.9 Type 2 diabetes mellitus without complications; E43 Unspecified severe protein-calorie malnutrition; Z87.891 Personal history of nicotine dependence; M19.90 Unspecified osteoarthritis, unspecified site; Z95.810 Presence of automatic (implantable) cardiac defibrillator; Z95.1 Presence of aortocoronary bypass graft; Z95.5 Presence of coronary angioplasty implant and graft; Z79.01 Long term (current) use of anticoagulants; Z79.899 Other long term (current) drug therapy; Z90.49 Acquired absence of other specified parts of digestive tract
CPT/HCPCS: 36415; 80162; 96365; 96366; G0463; J1250

== ENCOUNTER → 2019-02-04 | Outpatient (CLI) | payer MEDICARE ==
[2019-02-04] VITALS (10 sets, daily range): BP systolic 122–170; BP diastolic 46–76
--- NOTE | 2019-02-04 07:55 | NUR ---
IN FOR SCHEDULED INFUSION WITH HOME OXYGEN IN USE AT 2LPM. DYSPNEA WITH ACTIVITY THAT RESOLVES WITH REST. VS WNL.
--- NOTE | 2019-02-04 08:09 | NUR ---
CLINIC PROVIDER CONSULTED. START DOBUTAMINE GTT AT 5 MCG/KG/MIN.
--- NOTE | 2019-02-04 08:09 | NUR ---
IV insertion IV access obtained, via clean sterile technique by inserting gauge catheter at LEFT HAND after attempt(s). IV secured properly. No trauma to site. Patient tolerated procedure well.
--- NOTE | 2019-02-04 11:30 | NUR ---
IV removal IV DC'd with sterile technique, catheter fully intact. Pressure dressing applied to site. Patient tolerated procedure well. Discharged with aftercare instructions per MD. NOTE:
--- NOTE | 2019-02-04 11:35 | NUR ---
Discharge Instructions See e-MAR for any mediations given with this visit. Patient education given on disease process. Patient verbalized understanding. Previous labs reviewed. Patient discharged in stable condition with after care instructions and follow up appointment. MEDICATIONS DOBUTAMINE DRIP [id number]
[2019-02-04 13:45] LABS: Potassium 4.2 mmol/L (3.5-5.1)
== END | disposition home or self-care (01) ==
LOC: CHF HDHVI 08:06
PROVIDERS: ATTEND Internal Medicine Cardiovascular Disease
DX: I11.0 Hypertensive heart disease with heart failure (principal); I50.42 Chronic combined systolic (congestive) and diastolic (congestive) heart failure; E87.5 Hyperkalemia; R94.4 Abnormal results of kidney function studies; J44.9 Chronic obstructive pulmonary disease, unspecified; I25.10 Atherosclerotic heart disease of native coronary artery without angina pectoris; E78.5 Hyperlipidemia, unspecified; I25.2 Old myocardial infarction; E78.00 Pure hypercholesterolemia, unspecified; E11.9 Type 2 diabetes mellitus without complications; I48.91 Unspecified atrial fibrillation; M19.90 Unspecified osteoarthritis, unspecified site; Z87.01 Personal history of pneumonia (recurrent); Z95.810 Presence of automatic (implantable) cardiac defibrillator; Z90.49 Acquired absence of other specified parts of digestive tract; Z79.01 Long term (current) use of anticoagulants; Z79.899 Other long term (current) drug therapy; Z87.891 Personal history of nicotine dependence; Z95.1 Presence of aortocoronary bypass graft
CPT/HCPCS: 36415; 82565; 83880; 84132; 84520; 96365; 96366; G0463; J1250

== ENCOUNTER → 2019-02-08 | Outpatient (CLI) | payer MEDICARE ==
[2019-02-08 09:00] VITALS: BP 121/52
[2019-02-08 09:30] VITALS: BP 118/57
[2019-02-08 10:00] VITALS: BP 145/58
[2019-02-08 10:30] VITALS: BP 120/55
[2019-02-08 11:00] VITALS: BP 132/60
[2019-02-08 11:25] VITALS: BP 145/58
--- NOTE | 2019-02-08 11:25 | NUR ---
CHF IN FOR SCHEDULED INFUSION. VS WNL. WITHOUT DISTRESS. NO OXYGEN IN USE TODAY WITH SPO2 AT 95%. IV insertion IV access obtained, via clean sterile technique by inserting 22 gauge catheter at after attempt(s)BY 2 RNS. IV secured properly. No trauma to site. Patient tolerated procedure well. CLINIC PROVIDER CONSULTED WITH ORDERS RECIEVED AND CARRIED OUT. SITE USED FOR DOBUTAMINE INFUSION AND TOLERATED WELL. SEE FREQUENT VITAL SIGNS. INR CHECK DONE WITH RESULT 1.5. PT INSTRUCTED TO INCREASE WEEKEND DOSE TO 7.5 MG ON MON AND MONDAY AND TAKE 5 MG ONLY ON MONDAY-MONDAY. WILL RECHECK INR IN 1 WEEK. IV SITE BENIGN POST USE. DISCHARGED TO SELF CARE IN NO DISTRESS OR DISCOMFORT. MEDICATION ADMINISTRATION DOBUTAMINE GTT START AT 0813/STOP AT 1119
== END | disposition home or self-care (01) ==
LOC: CHF HDHVI 07:56
PROVIDERS: ATTEND Internal Medicine Cardiovascular Disease
DX: I11.0 Hypertensive heart disease with heart failure (principal); I50.42 Chronic combined systolic (congestive) and diastolic (congestive) heart failure; J44.9 Chronic obstructive pulmonary disease, unspecified; I25.10 Atherosclerotic heart disease of native coronary artery without angina pectoris; I25.2 Old myocardial infarction; K21.9 Gastro-esophageal reflux disease without esophagitis; I27.21 Secondary pulmonary arterial hypertension; I48.91 Unspecified atrial fibrillation; I42.8 Other cardiomyopathies; E78.5 Hyperlipidemia, unspecified; E78.00 Pure hypercholesterolemia, unspecified; M19.90 Unspecified osteoarthritis, unspecified site; E43 Unspecified severe protein-calorie malnutrition; Z90.49 Acquired absence of other specified parts of digestive tract; Z79.899 Other long term (current) drug therapy; Z95.1 Presence of aortocoronary bypass graft; Z79.01 Long term (current) use of anticoagulants; Z87.891 Personal history of nicotine dependence; Z95.5 Presence of coronary angioplasty implant and graft
CPT/HCPCS: 85610; 96365; 96366; G0463; J1250

== ENCOUNTER → 2019-02-11 | Outpatient (CLI) | payer MEDICARE ==
[~2019-02-11] VITALS: Ht 30.5 cm; Wt 60.3 kg
[2019-02-11] VITALS (9 sets, daily range): BP systolic 106–141; BP diastolic 50–66
--- NOTE | 2019-02-11 08:05 | NUR ---
CHF PT ARRIVED AT THE CHF CLINIC FOR THERAPY, A/O X 3 0 DISTRESS VSS
--- NOTE | 2019-02-11 08:18 | NUR ---
IV insertion IV access obtained, via clean sterile technique by inserting 22 gauge catheter at after attempt(s). IV secured properly. No trauma to site. Patient tolerated procedure well. BY ODALYS CULVER
--- NOTE | 2019-02-11 11:22 | NUR ---
IV removal IV DC'd with sterile technique, catheter fully intact. Pressure dressing applied to site. Patient tolerated procedure well. Discharged with aftercare instructions per MD. NOTE:
--- NOTE | 2019-02-11 11:25 | NUR ---
Discharge Instructions See e-MAR for any mediations given with this visit. Patient education given on disease process. Patient verbalized understanding. Previous labs reviewed. Patient discharged in stable condition with after care instructions and follow up appointment. MEDICATIONS DOBUTAMINE DRIP [id number]
[2019-02-11 12:57] LABS: Potassium 4.2 mmol/L (3.5-5.1)
== END | disposition home or self-care (01) ==
LOC: CHF HDHVI 08:10
PROVIDERS: ATTEND Internal Medicine Cardiovascular Disease
DX: I11.0 Hypertensive heart disease with heart failure (principal); I50.42 Chronic combined systolic (congestive) and diastolic (congestive) heart failure; I25.10 Atherosclerotic heart disease of native coronary artery without angina pectoris; E87.6 Hypokalemia; J44.9 Chronic obstructive pulmonary disease, unspecified; E78.5 Hyperlipidemia, unspecified; I48.91 Unspecified atrial fibrillation; I42.8 Other cardiomyopathies; I27.21 Secondary pulmonary arterial hypertension; I25.2 Old myocardial infarction; E78.00 Pure hypercholesterolemia, unspecified; E43 Unspecified severe protein-calorie malnutrition; E11.9 Type 2 diabetes mellitus without complications; Z87.891 Personal history of nicotine dependence; Z79.899 Other long term (current) drug therapy; Z79.01 Long term (current) use of anticoagulants; Z90.49 Acquired absence of other specified parts of digestive tract; Z95.1 Presence of aortocoronary bypass graft; Z95.810 Presence of automatic (implantable) cardiac defibrillator; Z95.5 Presence of coronary angioplasty implant and graft
CPT/HCPCS: 36415; 82565; 83880; 84132; 84520; 96365; 96366; G0463; J1250

== ENCOUNTER → 2019-02-15 | Outpatient (CLI) | payer MEDICARE ==
[2019-02-15] VITALS (7 sets, daily range): BP systolic 132–148; BP diastolic 58–74
[~2019-02-15] VITALS: Ht 180.3 cm; Wt 59.4 kg
--- NOTE | 2019-02-15 08:00 | NUR ---
IN FOR SCHEDULED INFUSION. WITHOUT DISTRESS AND WITHOUT DISCOMFORT. VS WNL.
--- NOTE | 2019-02-15 09:06 | NUR ---
vs wnl. tolerating well. INFUSION ONGOING.
--- NOTE | 2019-02-15 10:30 | NUR ---
VISITING WITH OTHER PATIENTS. WITHOUT DISTRESS. SEE FREQUENT VITAL SIGNS.
--- NOTE | 2019-02-15 11:12 | NUR ---
CHF IV SITE TO LEFT FOREARM DCD AND SITE BENIGN POST INFUSION. ENCOURAGED TO INCREASE PO INTAKE AND GAIN WEIGHT. WITHOUT DISTRESS OR DISCOMFORT. DISCHARGED TO SELF CARE. FOLLOWUP APPOINTMENT FOR 02/19/19. MEDICATION ADMINISTRATION DOBUTAMINE GTT AT 5 CG/KG/MIN START AT 0806/STOP AT 1106 (17.88 ML/HR)
== END | disposition home or self-care (01) ==
LOC: CHF HDHVI 08:09
PROVIDERS: ATTEND Internal Medicine Cardiovascular Disease
DX: I11.0 Hypertensive heart disease with heart failure (principal); I50.42 Chronic combined systolic (congestive) and diastolic (congestive) heart failure; J44.9 Chronic obstructive pulmonary disease, unspecified; I25.10 Atherosclerotic heart disease of native coronary artery without angina pectoris; I48.91 Unspecified atrial fibrillation; I25.2 Old myocardial infarction; I42.8 Other cardiomyopathies; E78.5 Hyperlipidemia, unspecified; E78.00 Pure hypercholesterolemia, unspecified; E11.9 Type 2 diabetes mellitus without complications; E43 Unspecified severe protein-calorie malnutrition; M19.90 Unspecified osteoarthritis, unspecified site; Z79.899 Other long term (current) drug therapy; Z87.891 Personal history of nicotine dependence; Z95.5 Presence of coronary angioplasty implant and graft; Z79.01 Long term (current) use of anticoagulants; Z90.49 Acquired absence of other specified parts of digestive tract; Z95.810 Presence of automatic (implantable) cardiac defibrillator; Z95.1 Presence of aortocoronary bypass graft
CPT/HCPCS: 96365; 96366; G0463; J1250

== ENCOUNTER → 2019-03-01 | Outpatient (CLI) | payer MEDICARE ==
[~2019-03-01] MED LIST changes: -DOBUTamine 1000MCG/ML 250 ML IV ONE
--- NOTE | 2019-03-01 10:15 | NUR ---
IN TO CLINIC FOR CHF COPD EVALUATION AFTER HOSPITALIZATION. PT NEEDED ASSISTANCE TO AMBULATE INTO CLINIC, WITH USE OF OXYGEN FROM HOME. SWITCHED TO OXYGEN AT CHAIRSIDE AT 2 LPM. PT DYSPNEIC, VOICE WEAK AND HOARSE SOUNDING. NOTED TO HAVE PRODUCTIVE COUGH WITH DARKISH YELLOW SPUTUM.
--- NOTE | 2019-03-01 10:45 | NUR ---
LABS DRAWN AND SENT FOR STAT RESULTS.
--- NOTE | 2019-03-01 11:00 | NUR ---
TO RADIOLOGY FOR CHEST X RAY
[2019-03-01 12:22] LABS: Basophils # (auto) 0.1 uL; Eosinophils # (auto) 0.2 uL; Eosinophils % (auto) 2.5 % (0.0-7.0); Hematocrit 32.6 % (41.0-53.0); Hemoglobin 10.8 g/dL (13.5-17.5); Lymphocytes # (auto) 0.6 uL; Lymphocytes % (auto) 8.9 % (10.0-50.0); Mean Corpuscular Hemoglobin 30.5 pg (28.0-32.0); Mean Corpuscular Hgb Conc. 33.1 g/dL (32.0-36.0); Mean Corpuscular Volume 92.2 fL (80.0-100.0); Monocytes # (auto) 0.4 uL; Monocytes % (auto) 5.5 % (0.0-12.0); Neutrophils # (auto) 5.7 uL; Neutrophils % (auto) 82.1 % (37.0-80.0); Platelet Count (auto) 365 10^3/uL (140-450); Red Blood Cells 3.53 10^6/uL (4.5-5.90); Red Cell Distribution Width 14.3 % (11.8-14.3)
[2019-03-01 12:27] LABS: Albumin 2.9 g/dL (3.4-5.0); BUN/Creatinine Ratio 18.3; Calcium 8.5 mg/dL (8.5-10.1); Magnesium 2.5 mg/dL (1.6-2.6); Potassium 4.1 mmol/L (3.5-5.1)
[2019-03-01 12:29] LABS: Bilirubin, Total 0.5 mg/dL (0.2-1.0); Total Protein 7.3 g/dL (6.4-8.2)
[2019-03-01 12:45] VITALS: BP 136/75
--- NOTE | 2019-03-01 12:45 | NUR ---
CHF CLINIC Discharge Instructions See e-MAR for any mediations given with this visit. Patient education given on disease process. Patient verbalized understanding. Previous labs reviewed. Patient discharged in stable condition with after care instructions and follow up appointment on Monday.
== END | disposition home or self-care (01) ==
LOC: CHF HDHVI 10:48
PROVIDERS: ATTEND Internal Medicine Cardiovascular Disease
DX: I11.0 Hypertensive heart disease with heart failure (principal); I50.23 Acute on chronic systolic (congestive) heart failure; D64.9 Anemia, unspecified; E83.40 Disorders of magnesium metabolism, unspecified; R53.83 Other fatigue
CPT/HCPCS: 36415; 71046; 80053; 83735; 83880; 85025; G0463

== ENCOUNTER → 2019-03-04 | Outpatient (CLI) | payer MEDICARE ==
[~2019-03-04] MED LIST changes: +DOBUTamine 1000MCG/ML 250 ML IV ONE
--- NOTE | 2019-03-04 08:04 | NUR ---
CHF PT ARRIVED AT THE CHF CLINIC FOR TX AND EVAL. PT A/O X 3 0 DISTRESS VSS
--- NOTE | 2019-03-04 08:40 | NUR ---
IV insertion IV access obtained, via clean sterile technique by inserting 22 gauge catheter at after attempt(s). IV secured properly. No trauma to site. Patient tolerated procedure well.
--- NOTE | 2019-03-04 12:15 | NUR ---
IV removal IV DC'd with sterile technique, catheter fully intact. Pressure dressing applied to site. Patient tolerated procedure well. Discharged with aftercare instructions per MD. NOTE:
[2019-03-04 12:17] VITALS: BP 132/69
--- NOTE | 2019-03-04 12:17 | NUR ---
Discharge Instructions See e-MAR for any mediations given with this visit. Patient education given on disease process. Patient verbalized understanding. Previous labs reviewed. Patient discharged in stable condition with after care instructions and follow up appointment. medications dobutamine [id number]
== END | disposition home or self-care (01) ==
LOC: CHF HDHVI 08:21
PROVIDERS: ATTEND Internal Medicine Cardiovascular Disease
DX: I11.0 Hypertensive heart disease with heart failure (principal); I50.22 Chronic systolic (congestive) heart failure; I25.10 Atherosclerotic heart disease of native coronary artery without angina pectoris; E87.6 Hypokalemia; I27.21 Secondary pulmonary arterial hypertension; I25.2 Old myocardial infarction; I42.8 Other cardiomyopathies; R94.4 Abnormal results of kidney function studies; J44.9 Chronic obstructive pulmonary disease, unspecified; I48.91 Unspecified atrial fibrillation; K21.9 Gastro-esophageal reflux disease without esophagitis; E78.00 Pure hypercholesterolemia, unspecified; E11.9 Type 2 diabetes mellitus without complications; M19.90 Unspecified osteoarthritis, unspecified site; E78.5 Hyperlipidemia, unspecified; E43 Unspecified severe protein-calorie malnutrition; Z79.899 Other long term (current) drug therapy; Z87.891 Personal history of nicotine dependence; Z95.1 Presence of aortocoronary bypass graft; Z95.810 Presence of automatic (implantable) cardiac defibrillator; Z95.5 Presence of coronary angioplasty implant and graft; Z90.49 Acquired absence of other specified parts of digestive tract; Z79.01 Long term (current) use of anticoagulants
CPT/HCPCS: 36415; 82565; 84132; 84520; 96365; 96366; G0463; J1250

== ENCOUNTER → 2019-03-08 | Outpatient (CLI) | payer MEDICARE ==
[2019-03-08] VITALS (9 sets, daily range): BP systolic 123–141; BP diastolic 61–75
--- NOTE | 2019-03-08 11:30 | NUR ---
IV removal IV DC'd with sterile technique, catheter fully intact. Pressure dressing applied to site. Patient tolerated procedure well.
--- NOTE | 2019-03-08 11:35 | NUR ---
CHF CLINIC Discharge Instructions See e-MAR for any mediations given with this visit. Patient education given on disease process. Patient verbalized understanding. Previous labs reviewed. Patient discharged in stable condition with after care instructions and follow up appointment. NOTE DOBUTAMINE [id number] ADMIN BY ODALYS CULVER.
[2019-03-08 12:17] LABS: Basophils # (auto) 0.1 uL; Basophils % (auto) 1.3 % (0.0-2.0); Eosinophils # (auto) 0.2 uL; Eosinophils % (auto) 2.1 % (0.0-7.0); Hematocrit 32.9 % (41.0-53.0); Hemoglobin 10.9 g/dL (13.5-17.5); Lymphocytes % (auto) 11.8 % (10.0-50.0); Mean Corpuscular Hemoglobin 30.6 pg (28.0-32.0); Mean Corpuscular Hgb Conc. 33.1 g/dL (32.0-36.0); Mean Corpuscular Volume 92.5 fL (80.0-100.0); Monocytes # (auto) 0.8 uL; Monocytes % (auto) 9.9 % (0.0-12.0); Neutrophils # (auto) 6.1 uL; Neutrophils % (auto) 74.9 % (37.0-80.0); Nucleated Red Blood Cells % 0.1 %; Platelet Count (auto) 352 10^3/uL (140-450); Red Blood Cells 3.55 10^6/uL (4.5-5.90); Red Cell Distribution Width 15.3 % (11.8-14.3); White Blood Cell 8.2 10^3/uL (4.4-10.8)
[2019-03-08 13:18] LABS: Calcium 8.9 mg/dL (8.5-10.1)
[2019-03-08 13:21] LABS: Magnesium 2.6 mg/dL (1.6-2.6)
== END | disposition home or self-care (01) ==
LOC: CHF HDHVI 07:55
PROVIDERS: ATTEND Internal Medicine Cardiovascular Disease
DX: I11.0 Hypertensive heart disease with heart failure (principal); I50.23 Acute on chronic systolic (congestive) heart failure; I48.91 Unspecified atrial fibrillation; D64.9 Anemia, unspecified; I25.10 Atherosclerotic heart disease of native coronary artery without angina pectoris; I27.21 Secondary pulmonary arterial hypertension; J44.9 Chronic obstructive pulmonary disease, unspecified; K21.9 Gastro-esophageal reflux disease without esophagitis; E78.5 Hyperlipidemia, unspecified; E78.00 Pure hypercholesterolemia, unspecified; E11.9 Type 2 diabetes mellitus without complications; M19.90 Unspecified osteoarthritis, unspecified site; E43 Unspecified severe protein-calorie malnutrition; Z79.01 Long term (current) use of anticoagulants; Z87.891 Personal history of nicotine dependence; Z95.1 Presence of aortocoronary bypass graft; Z95.810 Presence of automatic (implantable) cardiac defibrillator; Z95.5 Presence of coronary angioplasty implant and graft; Z90.49 Acquired absence of other specified parts of digestive tract
CPT/HCPCS: 36415; 80048; 83735; 83880; 85025; 96365; 96366; G0463; J1250

== ENCOUNTER → 2019-03-11 | Outpatient (CLI) | payer MEDICARE ==
[2019-03-11] VITALS (10 sets, daily range): BP systolic 122–166; BP diastolic 55–79
--- NOTE | 2019-03-11 08:00 | NUR ---
PT. TO CHF CLINIC FOR DOBUTAMINE INFUSION PER DR. MCGRATH. PT. STATES HIS BREATHING HAS NOT IMPROVED MUCH OVER THE WEEKEND. VSS. MD ORDERS RECEIVED AND CARRIED OUT. SEE NSG ASSESS.
--- NOTE | 2019-03-11 08:20 | NUR ---
IV insertion IV access obtained, via clean sterile technique by inserting 22 gauge catheter at after attempt(s). IV secured properly. No trauma to site. Patient tolerated procedure well. LABS SENT PER MD ORDER.
--- NOTE | 2019-03-11 08:25 | NUR ---
MEDS: DOBUTAMINE DRIP STARTED AT 5 MCG/KG/MIN.
--- NOTE | 2019-03-11 09:30 | NUR ---
INFUSION ONGOING. WITHOUT DISTRESS. DOZING INTERMITTENTLY.
--- NOTE | 2019-03-11 10:00 | NUR ---
TO BACK OFFICE TO SEE DR MCGRATH POST HOSPITALIZATION.
--- NOTE | 2019-03-11 10:30 | NUR ---
RETURNED FROM DR APPOINTMENT. RX X 2 FOR USE. WITHOUT DISTRESS. VS WNL.
[2019-03-11 12:10] LABS: Basophils # (auto) 0.1 uL; Basophils % (auto) 1.3 % (0.0-2.0); Eosinophils # (auto) 0.1 uL; Eosinophils % (auto) 2.8 % (0.0-7.0); Hematocrit 33.3 % (41.0-53.0); Hemoglobin 10.7 g/dL (13.5-17.5); Lymphocytes # (auto) 0.7 uL; Lymphocytes % (auto) 15.1 % (10.0-50.0); Mean Corpuscular Hemoglobin 29.4 pg (28.0-32.0); Mean Corpuscular Volume 91.7 fL (80.0-100.0); Monocytes # (auto) 0.5 uL; Monocytes % (auto) 9.4 % (0.0-12.0); Neutrophils # (auto) 3.5 uL; Neutrophils % (auto) 71.4 % (37.0-80.0); Nucleated Red Blood Cells % 0.1 %; Platelet Count (auto) 283 10^3/uL (140-450); Red Blood Cells 3.63 10^6/uL (4.5-5.90); Red Cell Distribution Width 15.2 % (11.8-14.3); White Blood Cell 4.9 10^3/uL (4.4-10.8)
--- NOTE | 2019-03-11 12:14 | NUR ---
CHF INFUSION COMPLETED AND PT TOLERATED WELL. WITHOUT DISTRESS AND WITHOUT DISCOMFORT. PT SAW THIS AM AND HAS ORDERS TO START SINGULAIR AND PREDNISONE DAILY. DENIES QUESTIONS. NO OXYGEN NEEDED DURING TREATMENT TODAY. DISCHARGED TO SELF CARE. MEDICATION ADMINISTRATION DOBUTAMINE START AT 0825/STOP 1205
[2019-03-11 12:58] LABS: Calcium 8.5 mg/dL (8.5-10.1); Magnesium 2.6 mg/dL (1.6-2.6); Potassium 4.2 mmol/L (3.5-5.1)
[2019-03-11 13:00] LABS: BUN/Creatinine Ratio 19.8
== END | disposition home or self-care (01) ==
LOC: CHF HDHVI 08:09
PROVIDERS: ATTEND Internal Medicine Cardiovascular Disease
DX: I25.10 Atherosclerotic heart disease of native coronary artery without angina pectoris (principal); I11.0 Hypertensive heart disease with heart failure; I50.42 Chronic combined systolic (congestive) and diastolic (congestive) heart failure; I42.8 Other cardiomyopathies; D64.9 Anemia, unspecified; E83.40 Disorders of magnesium metabolism, unspecified; I27.21 Secondary pulmonary arterial hypertension; I48.91 Unspecified atrial fibrillation; I25.2 Old myocardial infarction; J44.9 Chronic obstructive pulmonary disease, unspecified; K21.9 Gastro-esophageal reflux disease without esophagitis; E78.5 Hyperlipidemia, unspecified; E78.00 Pure hypercholesterolemia, unspecified; M19.90 Unspecified osteoarthritis, unspecified site; E43 Unspecified severe protein-calorie malnutrition; Z79.01 Long term (current) use of anticoagulants; Z87.891 Personal history of nicotine dependence; Z95.1 Presence of aortocoronary bypass graft; Z95.5 Presence of coronary angioplasty implant and graft; Z95.810 Presence of automatic (implantable) cardiac defibrillator; Z79.899 Other long term (current) drug therapy; Z90.49 Acquired absence of other specified parts of digestive tract
CPT/HCPCS: 36415; 80048; 83735; 83880; 85025; 96365; 96366; G0463; J1250

== ENCOUNTER → 2019-03-15 | Outpatient (CLI) | payer MEDICARE ==
[2019-03-15] VITALS (9 sets, daily range): BP systolic 109–131; BP diastolic 47–61
--- NOTE | 2019-03-15 09:00 | NUR ---
INFUSION ONGOING. WITHOUT DISTRESS. DOZING INTERMITTENTLY.
--- NOTE | 2019-03-15 10:00 | NUR ---
DOZING. VS WNL. DENIES PAIN. AFFECT TALKATIVE AND REPORTS FEELING BETTER.
--- NOTE | 2019-03-15 11:15 | NUR ---
INFUSION COMPLETED. VS WNL. WITHOUT DISTRESS. IV TO LEFT FOREARM DCD AND SITE BENIGN POST USE.
[2019-03-15 11:56] LABS: Basophils # (auto) 0 uL; Basophils % (auto) 0.4 % (0.0-2.0); Eosinophils # (auto) 0 uL; Hematocrit 33.7 % (41.0-53.0); Hemoglobin 11.4 g/dL (13.5-17.5); Lymphocytes # (auto) 0.5 uL; Lymphocytes % (auto) 7.3 % (10.0-50.0); Mean Corpuscular Hemoglobin 30.4 pg (28.0-32.0); Mean Corpuscular Hgb Conc. 33.8 g/dL (32.0-36.0); Mean Corpuscular Volume 89.8 fL (80.0-100.0); Monocytes # (auto) 0.1 uL; Monocytes % (auto) 2.2 % (0.0-12.0); Neutrophils # (auto) 5.9 uL; Neutrophils % (auto) 90.1 % (37.0-80.0); Platelet Count (auto) 315 10^3/uL (140-450); Red Blood Cells 3.75 10^6/uL (4.5-5.90); Red Cell Distribution Width 15.2 % (11.8-14.3); White Blood Cell 6.5 10^3/uL (4.4-10.8)
[2019-03-15 12:04] LABS: Potassium 4.8 mmol/L (3.5-5.1)
[2019-03-15 12:10] LABS: BUN/Creatinine Ratio 25.5; Calcium 8.5 mg/dL (8.5-10.1); Carcinoembryonic Antigen 0.54 ng/mL (<5.0 OR =); Magnesium 2.7 mg/dL (1.6-2.6); Prostate Specific Antigen 1.4 ng/mL (0.0-4.0)
== END | disposition home or self-care (01) ==
LOC: CHF HDHVI 08:04
PROVIDERS: ATTEND Internal Medicine Cardiovascular Disease
DX: I11.0 Hypertensive heart disease with heart failure (principal); I50.42 Chronic combined systolic (congestive) and diastolic (congestive) heart failure; I25.10 Atherosclerotic heart disease of native coronary artery without angina pectoris; I27.21 Secondary pulmonary arterial hypertension; I48.91 Unspecified atrial fibrillation; I25.2 Old myocardial infarction; I42.8 Other cardiomyopathies; R97.0 Elevated carcinoembryonic antigen [CEA]; R97.1 Elevated cancer antigen 125 [CA 125]; R97.8 Other abnormal tumor markers; D64.9 Anemia, unspecified; N40.0 Benign prostatic hyperplasia without lower urinary tract symptoms; J44.9 Chronic obstructive pulmonary disease, unspecified; K21.9 Gastro-esophageal reflux disease without esophagitis; E78.5 Hyperlipidemia, unspecified; E78.00 Pure hypercholesterolemia, unspecified; E11.9 Type 2 diabetes mellitus without complications; M19.90 Unspecified osteoarthritis, unspecified site; E43 Unspecified severe protein-calorie malnutrition; Z90.49 Acquired absence of other specified parts of digestive tract; Z79.01 Long term (current) use of anticoagulants; Z87.891 Personal history of nicotine dependence; Z95.1 Presence of aortocoronary bypass graft; Z95.5 Presence of coronary angioplasty implant and graft; Z95.810 Presence of automatic (implantable) cardiac defibrillator
CPT/HCPCS: 36415; 80048; 82378; 83735; 83880; 84153; 85025; 86300; 96365; 96366; G0463; J1250

== ENCOUNTER → 2019-03-18 | Outpatient (CLI) | payer MEDICARE ==
[~2019-03-18] VITALS: Ht 30.5 cm; Wt 56.7 kg
[2019-03-18] VITALS (8 sets, daily range): BP systolic 133–154; BP diastolic 63–75
--- NOTE | 2019-03-18 08:00 | NUR ---
PT. TO CHF CLINIC FOR DOBUTAMINE INFUSION PER MD ORDER. PT. STATES HE HAS BEEN FEELING BETTER OVER THE WEEKEND. MD ORDERS RECEIVED AND CATRRIED OUT. SEE NSG ASSESS.
--- NOTE | 2019-03-18 08:15 | NUR ---
Clinic Provider Clinic Provider into see pt with new orders received and carried out. Dobutamine gtt started at {5}mcg/kg/hr per MD order.
--- NOTE | 2019-03-18 10:15 | NUR ---
DOZING INTERMITTENTLY. WITHOUT COMPLAINT. TOLERATING INFUSION WELL.
--- NOTE | 2019-03-18 11:25 | NUR ---
INFUSION COMPLETED. TOLERATED WELL.
--- NOTE | 2019-03-18 11:30 | NUR ---
CHF TOLERATED TREATMENT WELL. WITHOUT COMPLAINT. AFFECT CHEERFUL AND PLEASANT AND PT STATES HE FEELS GOOD. UP TO VOID X 2 DURING TREATMENT TODAY. IV SIRE TO LEFT FOREARM DCD AND SITE BENIGN POST USE. DISCHARGED TO SELF CARE IN NO DISTRESS OR DISCOMFORT. MEDICATION ADMINISTRATION DOBUTAMINE GTT START AT 0815/STOP AT 1125
== END | disposition home or self-care (01) ==
LOC: CHF HDHVI 07:58
PROVIDERS: ATTEND Internal Medicine Cardiovascular Disease
DX: I11.0 Hypertensive heart disease with heart failure (principal); I50.42 Chronic combined systolic (congestive) and diastolic (congestive) heart failure; I25.10 Atherosclerotic heart disease of native coronary artery without angina pectoris; I42.8 Other cardiomyopathies; I27.21 Secondary pulmonary arterial hypertension; I48.91 Unspecified atrial fibrillation; I25.2 Old myocardial infarction; J44.9 Chronic obstructive pulmonary disease, unspecified; K21.9 Gastro-esophageal reflux disease without esophagitis; E78.5 Hyperlipidemia, unspecified; E78.00 Pure hypercholesterolemia, unspecified; M19.90 Unspecified osteoarthritis, unspecified site; E43 Unspecified severe protein-calorie malnutrition; E11.9 Type 2 diabetes mellitus without complications; J96.00 Acute respiratory failure, unspecified whether with hypoxia or hypercapnia; Z79.899 Other long term (current) drug therapy; Z87.891 Personal history of nicotine dependence; Z95.1 Presence of aortocoronary bypass graft; Z95.5 Presence of coronary angioplasty implant and graft; Z95.810 Presence of automatic (implantable) cardiac defibrillator; Z79.01 Long term (current) use of anticoagulants; Z90.49 Acquired absence of other specified parts of digestive tract
CPT/HCPCS: 83880; 96365; 96366; G0463; J1250

== ENCOUNTER → 2019-03-22 | Outpatient (CLI) | payer MEDICARE ==
[2019-03-22] VITALS (9 sets, daily range): BP systolic 121–160; BP diastolic 46–70
--- NOTE | 2019-03-22 09:12 | NUR ---
DOBUTAMINE INFUSION ONGOING. DOZING INTERMITTENTLY. VS WNL.
--- NOTE | 2019-03-22 11:15 | NUR ---
INFUSION COMPLETED. TOLERATED WELL WITHOUT DISTRESS AND WITHOUT DISCOMFORT. PT CONTINUES TO REPORT FEELING WELL AND EATING WELL. NO OXYGEN IN USE. VS WNL
--- NOTE | 2019-03-22 11:25 | NUR ---
DISCHARGED TO SELF CARE IN NO DISTRESS OR DISCOMFORT. RTC ON Monday03/25/19
== END | disposition home or self-care (01) ==
LOC: CHF HDHVI 08:04
PROVIDERS: ATTEND Internal Medicine Cardiovascular Disease
DX: I11.0 Hypertensive heart disease with heart failure (principal); I50.42 Chronic combined systolic (congestive) and diastolic (congestive) heart failure; I25.10 Atherosclerotic heart disease of native coronary artery without angina pectoris; I27.21 Secondary pulmonary arterial hypertension; I25.2 Old myocardial infarction; I42.8 Other cardiomyopathies; J44.9 Chronic obstructive pulmonary disease, unspecified; K21.9 Gastro-esophageal reflux disease without esophagitis; E78.5 Hyperlipidemia, unspecified; E78.00 Pure hypercholesterolemia, unspecified; Z79.899 Other long term (current) drug therapy; Z79.01 Long term (current) use of anticoagulants; Z95.1 Presence of aortocoronary bypass graft; Z95.810 Presence of automatic (implantable) cardiac defibrillator; Z95.5 Presence of coronary angioplasty implant and graft; Z90.49 Acquired absence of other specified parts of digestive tract; E11.9 Type 2 diabetes mellitus without complications; I48.91 Unspecified atrial fibrillation; M19.90 Unspecified osteoarthritis, unspecified site; E43 Unspecified severe protein-calorie malnutrition
CPT/HCPCS: 96365; 96366; G0463; J1250

== ENCOUNTER → 2019-03-25 | Outpatient (CLI) | payer MEDICARE ==
[2019-03-25] VITALS (9 sets, daily range): BP systolic 92–122; BP diastolic 39–72
[~2019-03-25] VITALS: Ht 30.5 cm; Wt 55.8 kg
[~2019-03-25] MED LIST changes: +FUROSEMIDE 40 MG/4 ML VIAL IV ONE; +FUROSEMIDE 40 MG/4 ML VIAL ONE; +POTASSIUM CHL 10 Meq TABLET PO ONE; +POTASSIUM CHL 20 Meq TABLET PO ONE
--- NOTE | 2019-03-25 08:20 | NUR ---
IV insertion IV access obtained, via clean sterile technique by inserting 22 gauge catheter at LAC after 2 attempt(s). IV secured properly. No trauma to site. Patient tolerated procedure well.
--- NOTE | 2019-03-25 09:00 | NUR ---
OXYGEN APPLIED FOR EASE OF BREATHING AND FOR SPO2 AT 90%.
--- NOTE | 2019-03-25 09:04 | NUR ---
DOBUTAMINE REDUCED TO 3 MCG/KG/MIN (10 ML). FOR HYPOTENSION BP 90/40
--- NOTE | 2019-03-25 09:33 | NUR ---
BP 103/44 WITH SPO2 97 %.
--- NOTE | 2019-03-25 11:35 | NUR ---
INFUSION COMPLETED. TOLERATED WELL.
--- NOTE | 2019-03-25 11:55 | NUR ---
DR MCGRATH IN ATTENDANCE AT CHAIRSIDE. NEW ORDERS RECIEVED RELATED TO PTS DYSPNEA AND SHORTNESS OF BREATH OVER WEEKEND.
--- NOTE | 2019-03-25 12:10 | NUR ---
CHF DISCHARGED TO SELF CARE IN NO DISTRESS OR DISCOMFORT. AFFECT CHEERFUL AND WITHOUT DISTRESS AT TIME OF DISCHARGE. MEDICATION ADMINISTRATION DOBUTAMINE GTT AT 3-5 MCG/KG/MIN START AT 0824/STOP AT 1135 LASIX IVP AT 1200 POTASSIUM PO AT 1205
[2019-03-25 12:12] LABS: Basophils # (auto) 0.1 uL; Eosinophils # (auto) 0.1 uL; Eosinophils % (auto) 1.6 % (0.0-7.0); Hematocrit 33.3 % (41.0-53.0); Lymphocytes # (auto) 0.8 uL; Lymphocytes % (auto) 9.4 % (10.0-50.0); Mean Corpuscular Hemoglobin 30.3 pg (28.0-32.0); Mean Corpuscular Hgb Conc. 33.1 g/dL (32.0-36.0); Mean Corpuscular Volume 91.7 fL (80.0-100.0); Monocytes # (auto) 0.6 uL; Monocytes % (auto) 7.7 % (0.0-12.0); Neutrophils # (auto) 6.7 uL; Neutrophils % (auto) 80.3 % (37.0-80.0); Platelet Count (auto) 264 10^3/uL (140-450); Red Blood Cells 3.63 10^6/uL (4.5-5.90); Red Cell Distribution Width 15.3 % (11.8-14.3); White Blood Cell 8.4 10^3/uL (4.4-10.8)
[2019-03-25 12:26] LABS: BUN/Creatinine Ratio 26.1; Calcium 8.6 mg/dL (8.5-10.1); Magnesium 2.4 mg/dL (1.6-2.6)
== END | disposition home or self-care (01) ==
LOC: CHF HDHVI 08:13
PROVIDERS: ATTEND Internal Medicine Cardiovascular Disease
DX: I11.0 Hypertensive heart disease with heart failure (principal); I50.42 Chronic combined systolic (congestive) and diastolic (congestive) heart failure; I25.10 Atherosclerotic heart disease of native coronary artery without angina pectoris; I48.91 Unspecified atrial fibrillation; I42.8 Other cardiomyopathies; I25.2 Old myocardial infarction; I27.21 Secondary pulmonary arterial hypertension; E83.40 Disorders of magnesium metabolism, unspecified; R53.83 Other fatigue; J44.9 Chronic obstructive pulmonary disease, unspecified; J96.10 Chronic respiratory failure, unspecified whether with hypoxia or hypercapnia; K21.9 Gastro-esophageal reflux disease without esophagitis; E78.5 Hyperlipidemia, unspecified; E78.00 Pure hypercholesterolemia, unspecified; E11.9 Type 2 diabetes mellitus without complications; M19.90 Unspecified osteoarthritis, unspecified site; E43 Unspecified severe protein-calorie malnutrition; Z79.01 Long term (current) use of anticoagulants; Z79.899 Other long term (current) drug therapy; Z87.891 Personal history of nicotine dependence; Z95.1 Presence of aortocoronary bypass graft; Z95.810 Presence of automatic (implantable) cardiac defibrillator; Z95.5 Presence of coronary angioplasty implant and graft
CPT/HCPCS: 36415; 71046; 80048; 83735; 83880; 85025; 96365; 96366; 96375; G0463; J1250; J1940

== ENCOUNTER → 2019-03-29 | Outpatient (CLI) | payer MEDICARE ==
[~2019-03-29] MED LIST changes: -FUROSEMIDE 40 MG/4 ML VIAL IV ONE; -FUROSEMIDE 40 MG/4 ML VIAL ONE; -POTASSIUM CHL 10 Meq TABLET PO ONE; -POTASSIUM CHL 20 Meq TABLET PO ONE
[2019-03-29 08:10] VITALS: BP 121/53
[2019-03-29 08:30] VITALS: BP 133/66
[2019-03-29 08:45] VITALS: BP 120/57
[2019-03-29 09:00] VITALS: BP 130/66
--- NOTE | 2019-03-29 09:00 | NUR ---
INFUSION ONGOING. TOLERATING WELL VISITING WITH OTHER PATIENTS
[2019-03-29 09:30] VITALS: BP 117/51
--- NOTE | 2019-03-29 10:00 | NUR ---
WITHOUT COMPLAINT. VS WNL. DOBUTAMINE AT 5 MCG/KG/MIN
[2019-03-29 11:20] VITALS: BP 125/56
--- NOTE | 2019-03-29 11:20 | NUR ---
RIGHT SIDED IV REMOVED AND SITE BENIGN POST INFUSION. VS WNL. DISCHARGED TO SELF CARE IN NO DISTRESS OR DISCOMFORT. MEDICATION ADMINISTRATION DOBUTAMINE GTT AT 5 MCG/KG/MIN START AT 0810/STOP AT 1114
== END | disposition home or self-care (01) ==
LOC: CHF HDHVI 08:09
PROVIDERS: ATTEND Internal Medicine Cardiovascular Disease
DX: I11.0 Hypertensive heart disease with heart failure (principal); I50.42 Chronic combined systolic (congestive) and diastolic (congestive) heart failure; I25.10 Atherosclerotic heart disease of native coronary artery without angina pectoris; I25.2 Old myocardial infarction; I27.21 Secondary pulmonary arterial hypertension; I48.91 Unspecified atrial fibrillation; I42.8 Other cardiomyopathies; E43 Unspecified severe protein-calorie malnutrition; J44.9 Chronic obstructive pulmonary disease, unspecified; K21.9 Gastro-esophageal reflux disease without esophagitis; E78.5 Hyperlipidemia, unspecified; E78.00 Pure hypercholesterolemia, unspecified; E11.9 Type 2 diabetes mellitus without complications; M19.90 Unspecified osteoarthritis, unspecified site; Z87.891 Personal history of nicotine dependence; Z79.899 Other long term (current) drug therapy; Z95.1 Presence of aortocoronary bypass graft; Z95.810 Presence of automatic (implantable) cardiac defibrillator; Z95.5 Presence of coronary angioplasty implant and graft; Z79.01 Long term (current) use of anticoagulants; Z90.49 Acquired absence of other specified parts of digestive tract
CPT/HCPCS: 96365; 96366; G0463; J1250

== ENCOUNTER → 2019-04-01 | Outpatient (CLI) | payer MEDICARE ==
[2019-04-01] VITALS (9 sets, daily range): BP systolic 107–163; BP diastolic 51–76
--- NOTE | 2019-04-01 08:15 | NUR ---
IN TO CLINIC FOR SCHEDULED INFUSION. AFFECT CHEERFUL AND WITHOUT DISTRESS. IV PLACED TO LEFT FOREARM FOR INFUSION. LABS DRAWN AND SENT. CLINIC PROVIDER CONSULTED AND ORDERS FOR DOBUTAMINE INITIATED. DOBUTAMINE GTT AT 5 MCG/KG/MIN
--- NOTE | 2019-04-01 09:00 | NUR ---
INFUSION ONGOING. TOLERATING WELL.
--- NOTE | 2019-04-01 10:00 | NUR ---
DOBUTAMINE INFUSION ONGOING. TOLERATING WELL WITHOUT DISTRESS.
--- NOTE | 2019-04-01 11:30 | NUR ---
INFUSION COMPLETED. CONTINUE TO ENCOURAGE PO INTAKE AND INCREASE IN CALORIES. LEFT FOREARM IV DCD AND SITE BENIGN. DISCHARGED TO SELF CARE IN NO DISTRESS OR DISCOMFORT. MEDICATION ADMINISTRATION DOBUTAMINE GTT AT 5 MCG/KG/MIN START AT 0815/STOP AT 1115
[2019-04-01 12:12] LABS: Basophils # (auto) 0.1 uL; Basophils % (auto) 1.4 % (0.0-2.0); Eosinophils # (auto) 0.2 uL; Hematocrit 31.6 % (41.0-53.0); Hemoglobin 10.3 g/dL (13.5-17.5); Lymphocytes # (auto) 0.7 uL; Lymphocytes % (auto) 13.4 % (10.0-50.0); Mean Corpuscular Hemoglobin 30.4 pg (28.0-32.0); Mean Corpuscular Hgb Conc. 32.7 g/dL (32.0-36.0); Mean Corpuscular Volume 92.9 fL (80.0-100.0); Monocytes # (auto) 0.5 uL; Monocytes % (auto) 9.3 % (0.0-12.0); Neutrophils # (auto) 3.8 uL; Neutrophils % (auto) 72.9 % (37.0-80.0); Nucleated Red Blood Cells % 0.1 %; Platelet Count (auto) 227 10^3/uL (140-450); Red Cell Distribution Width 15.6 % (11.8-14.3); White Blood Cell 5.2 10^3/uL (4.4-10.8)
[2019-04-01 12:23] LABS: Calcium 8.4 mg/dL (8.5-10.1); Magnesium 2.9 mg/dL (1.6-2.6); Potassium 4.1 mmol/L (3.5-5.1)
[2019-04-01 12:26] LABS: BUN/Creatinine Ratio 26.6
== END | disposition home or self-care (01) ==
LOC: CHF HDHVI 08:08
PROVIDERS: ATTEND Internal Medicine Cardiovascular Disease
DX: I11.0 Hypertensive heart disease with heart failure (principal); I50.42 Chronic combined systolic (congestive) and diastolic (congestive) heart failure; I25.10 Atherosclerotic heart disease of native coronary artery without angina pectoris; I27.21 Secondary pulmonary arterial hypertension; I42.8 Other cardiomyopathies; I48.91 Unspecified atrial fibrillation; R53.83 Other fatigue; D64.9 Anemia, unspecified; E83.40 Disorders of magnesium metabolism, unspecified; J44.9 Chronic obstructive pulmonary disease, unspecified; K21.9 Gastro-esophageal reflux disease without esophagitis; E78.5 Hyperlipidemia, unspecified; E78.00 Pure hypercholesterolemia, unspecified; E11.9 Type 2 diabetes mellitus without complications; M19.90 Unspecified osteoarthritis, unspecified site; E43 Unspecified severe protein-calorie malnutrition; J96.10 Chronic respiratory failure, unspecified whether with hypoxia or hypercapnia; Z79.899 Other long term (current) drug therapy; Z87.891 Personal history of nicotine dependence; Z95.1 Presence of aortocoronary bypass graft; Z95.810 Presence of automatic (implantable) cardiac defibrillator; Z95.5 Presence of coronary angioplasty implant and graft; Z90.49 Acquired absence of other specified parts of digestive tract; Z79.01 Long term (current) use of anticoagulants
CPT/HCPCS: 36415; 80048; 83735; 83880; 85025; 96365; 96366; G0463; J1250

== ENCOUNTER → 2019-04-05 | Outpatient (CLI) | payer MEDICARE ==
[2019-04-05] VITALS (8 sets, daily range): BP systolic 102–158; BP diastolic 48–68
[~2019-04-05] MED LIST changes: +CYANOCOBALAMIN (B-12) 1000 MCG/1 ML VIAL IM ONE; +CYANOCOBALAMIN (B-12) 1000 MCG/1 ML VIAL ONE
--- NOTE | 2019-04-05 08:00 | NUR ---
IN TO CLINIC FOR SCHEDULED INFUSION.
--- NOTE | 2019-04-05 08:25 | NUR ---
IV insertion IV access obtained, via clean sterile technique by inserting 22 gauge catheter at after attempt(s). IV secured properly. No trauma to site. Patient tolerated procedure well. CLINIC PROVIDER CONSULTED AND ORDERS RECIEVED. START DOBUTAMINE GTT AT 5 MCG/KG/MIN
--- NOTE | 2019-04-05 12:00 | NUR ---
CHF' COMPLETED INFUSION AND RIGHT FOREARM IV DCD AND SITE BENIGN POST INFUSION. PT HAS BEEN FEELING TIRED AND STRESSED DUE TO HOME. RECIEVED VIT B12 INJECTION PER ORDER. DISCHARGED TO SELF CARE IN NO DISTRESS OR DISCOMFORT. VS WNL. MEDICATION ADMINISTRATION DOBUTAMINE GTT AT 5 MCG/KG/MIN (16.74 ML/HR) START AT 0825/STOP AT 1131 VIT B12 1000 MCG IM TO LEFT DELTOID AT 1140
== END | disposition home or self-care (01) ==
LOC: CHF HDHVI 08:05
PROVIDERS: ATTEND Internal Medicine Cardiovascular Disease
DX: I11.0 Hypertensive heart disease with heart failure (principal); I50.42 Chronic combined systolic (congestive) and diastolic (congestive) heart failure; I25.10 Atherosclerotic heart disease of native coronary artery without angina pectoris; I48.91 Unspecified atrial fibrillation; I25.2 Old myocardial infarction; I27.21 Secondary pulmonary arterial hypertension; I42.8 Other cardiomyopathies; J44.9 Chronic obstructive pulmonary disease, unspecified; J96.10 Chronic respiratory failure, unspecified whether with hypoxia or hypercapnia; K21.9 Gastro-esophageal reflux disease without esophagitis; E78.5 Hyperlipidemia, unspecified; E78.00 Pure hypercholesterolemia, unspecified; E11.9 Type 2 diabetes mellitus without complications; M19.90 Unspecified osteoarthritis, unspecified site; E43 Unspecified severe protein-calorie malnutrition; Z79.899 Other long term (current) drug therapy; Z87.891 Personal history of nicotine dependence; Z95.1 Presence of aortocoronary bypass graft; Z95.810 Presence of automatic (implantable) cardiac defibrillator; Z95.5 Presence of coronary angioplasty implant and graft; Z79.01 Long term (current) use of anticoagulants; Z90.49 Acquired absence of other specified parts of digestive tract
CPT/HCPCS: 96365; 96366; 96372; G0463; J1250; J3420

== ENCOUNTER → 2019-04-08 | Outpatient (CLI) | payer MEDICARE ==
[~2019-04-08] VITALS: Ht 30.5 cm; Wt 56.7 kg
[2019-04-08] VITALS (9 sets, daily range): BP systolic 113–143; BP diastolic 41–53
[~2019-04-08] MED LIST changes: -CYANOCOBALAMIN (B-12) 1000 MCG/1 ML VIAL IM ONE; -CYANOCOBALAMIN (B-12) 1000 MCG/1 ML VIAL ONE
--- NOTE | 2019-04-08 08:10 | NUR ---
CHF PT ARRIVED AT THE CHF CLINIC FOR WEEKLY THERAPY/ PT A/O X 4 O DISTRESS VSS
--- NOTE | 2019-04-08 08:15 | NUR ---
IV insertion IV access obtained, via clean sterile technique by inserting 22 gauge catheter at after attempt(s). IV secured properly. No trauma to site. Patient tolerated procedure well.
--- NOTE | 2019-04-08 08:15 | NUR ---
Clinic Provider Clinic Provider UPDATED new orders received and carried out. Dobutamine gtt started at {5}mcg/kg/hr per MD order.
--- NOTE | 2019-04-08 11:20 | NUR ---
IV removal IV DC'd with sterile technique, catheter fully intact. Pressure dressing applied to site. Patient tolerated procedure well. Discharged with aftercare instructions per MD. NOTE:
--- NOTE | 2019-04-08 11:21 | NUR ---
Discharge Instructions See e-MAR for any mediations given with this visit. Patient education given on disease process. Patient verbalized understanding. Previous labs reviewed. Patient discharged in stable condition with after care instructions and follow up appointment. MEDICATIONS DOBUTAMINE DRIP [id number]
[2019-04-08 12:25] LABS: Basophils # (auto) 0 uL; Basophils % (auto) 0.6 % (0.0-2.0); Eosinophils # (auto) 0.1 uL; Eosinophils % (auto) 1.3 % (0.0-7.0); Hematocrit 32.8 % (41.0-53.0); Hemoglobin 10.8 g/dL (13.5-17.5); Lymphocytes # (auto) 0.8 uL; Lymphocytes % (auto) 11.3 % (10.0-50.0); Mean Corpuscular Hgb Conc. 32.8 g/dL (32.0-36.0); Mean Corpuscular Volume 94.4 fL (80.0-100.0); Monocytes # (auto) 0.4 uL; Monocytes % (auto) 6.6 % (0.0-12.0); Neutrophils # (auto) 5.5 uL; Neutrophils % (auto) 80.2 % (37.0-80.0); Nucleated Red Blood Cells % 0.1 %; Platelet Count (auto) 246 10^3/uL (140-450); Red Blood Cells 3.48 10^6/uL (4.5-5.90); Red Cell Distribution Width 15.6 % (11.8-14.3); White Blood Cell 6.8 10^3/uL (4.4-10.8)
== END | disposition home or self-care (01) ==
LOC: CHF HDHVI 08:14
PROVIDERS: ATTEND Internal Medicine Cardiovascular Disease
DX: I11.0 Hypertensive heart disease with heart failure (principal); I50.42 Chronic combined systolic (congestive) and diastolic (congestive) heart failure; I25.10 Atherosclerotic heart disease of native coronary artery without angina pectoris; I48.91 Unspecified atrial fibrillation; I42.8 Other cardiomyopathies; I25.2 Old myocardial infarction; I27.21 Secondary pulmonary arterial hypertension; D64.9 Anemia, unspecified; J44.9 Chronic obstructive pulmonary disease, unspecified; J96.10 Chronic respiratory failure, unspecified whether with hypoxia or hypercapnia; K21.9 Gastro-esophageal reflux disease without esophagitis; E78.5 Hyperlipidemia, unspecified; E78.00 Pure hypercholesterolemia, unspecified; E11.9 Type 2 diabetes mellitus without complications; M19.90 Unspecified osteoarthritis, unspecified site; E43 Unspecified severe protein-calorie malnutrition; Z79.899 Other long term (current) drug therapy; Z87.891 Personal history of nicotine dependence; Z95.5 Presence of coronary angioplasty implant and graft; Z95.810 Presence of automatic (implantable) cardiac defibrillator; Z95.1 Presence of aortocoronary bypass graft; Z79.01 Long term (current) use of anticoagulants; Z90.49 Acquired absence of other specified parts of digestive tract
CPT/HCPCS: 36415; 83880; 85025; 96365; 96366; G0463; J1250

== ENCOUNTER → 2019-04-12 | Outpatient (CLI) | payer MEDICARE ==
[~2019-04-12] VITALS: Ht 30.5 cm; Wt 58.0 kg
[2019-04-12] VITALS (7 sets, daily range): BP systolic 113–158; BP diastolic 47–83
--- NOTE | 2019-04-12 12:05 | NUR ---
IV removal IV DC'd with sterile technique, catheter fully intact. Pressure dressing applied to site. Patient tolerated procedure well.
--- NOTE | 2019-04-12 12:10 | NUR ---
CHF CLINIC Discharge Instructions See e-MAR for any mediations given with this visit. Patient education given on disease process. Patient verbalized understanding. Previous labs reviewed. Patient discharged in stable condition with after care instructions and follow up appointment. NOTE DOBUTAMINE [id number], [id number] ADMIN BY TARYN CULVER
== END | disposition home or self-care (01) ==
LOC: CHF HDHVI 08:17
PROVIDERS: ATTEND Internal Medicine Cardiovascular Disease
DX: I11.0 Hypertensive heart disease with heart failure (principal); I50.42 Chronic combined systolic (congestive) and diastolic (congestive) heart failure; I25.10 Atherosclerotic heart disease of native coronary artery without angina pectoris; I42.8 Other cardiomyopathies; I25.2 Old myocardial infarction; I48.91 Unspecified atrial fibrillation; I27.21 Secondary pulmonary arterial hypertension; J44.9 Chronic obstructive pulmonary disease, unspecified; R53.83 Other fatigue; J96.10 Chronic respiratory failure, unspecified whether with hypoxia or hypercapnia; K21.9 Gastro-esophageal reflux disease without esophagitis; E78.5 Hyperlipidemia, unspecified; E78.00 Pure hypercholesterolemia, unspecified; E11.9 Type 2 diabetes mellitus without complications; M19.90 Unspecified osteoarthritis, unspecified site; E43 Unspecified severe protein-calorie malnutrition; Z79.899 Other long term (current) drug therapy; Z87.891 Personal history of nicotine dependence; Z95.1 Presence of aortocoronary bypass graft; Z95.810 Presence of automatic (implantable) cardiac defibrillator; Z95.5 Presence of coronary angioplasty implant and graft; Z90.49 Acquired absence of other specified parts of digestive tract; Z79.01 Long term (current) use of anticoagulants
CPT/HCPCS: 96365; 96366; G0463; J1250

== ENCOUNTER → 2019-04-15 | Outpatient (CLI) | payer MEDICARE ==
[2019-04-15] VITALS (8 sets, daily range): BP systolic 86–129; BP diastolic 42–69
[~2019-04-15] MED LIST changes: +ACETAMINOPHEN 500 MG TAB PO ONE; +SODIUM CHLORIDE 0.9% 500 ML IV ONE
--- NOTE | 2019-04-15 08:10 | NUR ---
IV insertion IV access obtained by Lorraine CULVER, via clean sterile technique by inserting 22 gauge catheter at LAC after 1 attempt(s). IV secured properly. No trauma to site. Patient tolerated procedure well.
--- NOTE | 2019-04-15 09:50 | NUR ---
DECREASED BP, DOBUTAMINE ADJUSTED PER MD.
--- NOTE | 2019-04-15 11:50 | NUR ---
IV removal IV DC'd with sterile technique, catheter fully intact. Pressure dressing applied to site. Patient tolerated procedure well.
--- NOTE | 2019-04-15 12:00 | NUR ---
CHF CLINIC Discharge Instructions See e-MAR for any mediations given with this visit. Patient education given on disease process. Patient verbalized understanding. Previous labs reviewed. Patient discharged in stable condition with after care instructions and follow up appointment. NOTE DOBUTAMINE [id number] ADMIN BY ARIK CULVER. NS [id number] ADMIN BY ARIK CULVER. TYLENOL PO ADMIN BY MARLEN CULVER.
[2019-04-15 12:07] LABS: Basophils # (auto) 0.1 uL; Basophils % (auto) 1.2 % (0.0-2.0); Eosinophils # (auto) 0.2 uL; Eosinophils % (auto) 3.7 % (0.0-7.0); Hematocrit 31.8 % (41.0-53.0); Hemoglobin 10.5 g/dL (13.5-17.5); Lymphocytes # (auto) 0.8 uL; Lymphocytes % (auto) 14.7 % (10.0-50.0); Mean Corpuscular Hemoglobin 30.8 pg (28.0-32.0); Mean Corpuscular Hgb Conc. 33.1 g/dL (32.0-36.0); Monocytes # (auto) 0.5 uL; Monocytes % (auto) 9.7 % (0.0-12.0); Neutrophils # (auto) 3.8 uL; Neutrophils % (auto) 70.7 % (37.0-80.0); Nucleated Red Blood Cells % 0.1 %; Platelet Count (auto) 290 10^3/uL (140-450); Red Blood Cells 3.41 10^6/uL (4.5-5.90); Red Cell Distribution Width 15.6 % (11.8-14.3); White Blood Cell 5.3 10^3/uL (4.4-10.8)
[2019-04-15 12:20] LABS: Albumin 3.1 g/dL (3.4-5.0); Calcium 8.3 mg/dL (8.5-10.1); Potassium 3.9 mmol/L (3.5-5.1)
[2019-04-15 12:22] LABS: BUN/Creatinine Ratio 17.9; Magnesium 2.4 mg/dL (1.6-2.6)
[2019-04-15 12:25] LABS: Bilirubin, Total 0.5 mg/dL (0.2-1.0); Total Protein 7.7 g/dL (6.4-8.2)
== END | disposition home or self-care (01) ==
LOC: CHF HDHVI 08:11
PROVIDERS: ATTEND Internal Medicine Cardiovascular Disease
DX: I11.0 Hypertensive heart disease with heart failure (principal); I50.23 Acute on chronic systolic (congestive) heart failure; I25.10 Atherosclerotic heart disease of native coronary artery without angina pectoris; I48.91 Unspecified atrial fibrillation; I25.2 Old myocardial infarction; I42.8 Other cardiomyopathies; I27.21 Secondary pulmonary arterial hypertension; D64.9 Anemia, unspecified; E83.40 Disorders of magnesium metabolism, unspecified; R53.83 Other fatigue; R51 Headache; K21.9 Gastro-esophageal reflux disease without esophagitis; E11.9 Type 2 diabetes mellitus without complications; J44.9 Chronic obstructive pulmonary disease, unspecified; J96.10 Chronic respiratory failure, unspecified whether with hypoxia or hypercapnia; E78.5 Hyperlipidemia, unspecified; E78.00 Pure hypercholesterolemia, unspecified; M19.90 Unspecified osteoarthritis, unspecified site; Z87.891 Personal history of nicotine dependence; Z95.1 Presence of aortocoronary bypass graft; Z95.810 Presence of automatic (implantable) cardiac defibrillator; Z79.899 Other long term (current) drug therapy; Z95.5 Presence of coronary angioplasty implant and graft; Z90.49 Acquired absence of other specified parts of digestive tract; Z79.01 Long term (current) use of anticoagulants
CPT/HCPCS: 36415; 80053; 83735; 83880; 85025; 96365; 96366; G0463; J1250; J7040; 96368

== ENCOUNTER → 2019-04-19 | Outpatient (CLI) | payer MEDICARE ==
[2019-04-19] VITALS (8 sets, daily range): BP systolic 104–118; BP diastolic 44–80
[~2019-04-19] MED LIST changes: -ACETAMINOPHEN 500 MG TAB PO ONE; -SODIUM CHLORIDE 0.9% 500 ML IV ONE
--- NOTE | 2019-04-19 08:30 | NUR ---
IV insertion IV access obtained, via clean sterile technique by inserting 22 gauge catheter at LFA after 3 attempt(s). IV secured properly. No trauma to site. Patient tolerated procedure well.
--- NOTE | 2019-04-19 12:02 | NUR ---
CHF CLINIC Discharge Instructions See e-MAR for any mediations given with this visit. Patient education given on disease process. Patient verbalized understanding. Previous labs reviewed. Patient discharged in stable condition with after care instructions and follow up appointment on Monday. Note Dobutamine [id number] admin by Loan CULVER.
== END | disposition home or self-care (01) ==
LOC: CHF HDHVI 08:18
PROVIDERS: ATTEND Internal Medicine Cardiovascular Disease
DX: I11.0 Hypertensive heart disease with heart failure (principal); I50.42 Chronic combined systolic (congestive) and diastolic (congestive) heart failure; I25.10 Atherosclerotic heart disease of native coronary artery without angina pectoris; I48.91 Unspecified atrial fibrillation; I25.2 Old myocardial infarction; I27.21 Secondary pulmonary arterial hypertension; I42.8 Other cardiomyopathies; E11.9 Type 2 diabetes mellitus without complications; J44.9 Chronic obstructive pulmonary disease, unspecified; J96.10 Chronic respiratory failure, unspecified whether with hypoxia or hypercapnia; K21.9 Gastro-esophageal reflux disease without esophagitis; E78.5 Hyperlipidemia, unspecified; E78.00 Pure hypercholesterolemia, unspecified; M19.90 Unspecified osteoarthritis, unspecified site; E43 Unspecified severe protein-calorie malnutrition; Z87.891 Personal history of nicotine dependence; Z95.1 Presence of aortocoronary bypass graft; Z95.810 Presence of automatic (implantable) cardiac defibrillator; Z95.5 Presence of coronary angioplasty implant and graft; Z79.01 Long term (current) use of anticoagulants; Z90.49 Acquired absence of other specified parts of digestive tract; Z79.899 Other long term (current) drug therapy
CPT/HCPCS: 96365; 96366; G0463; J1250

== ENCOUNTER → 2019-04-22 | Outpatient (CLI) | payer MEDICARE ==
[2019-04-22] VITALS (7 sets, daily range): BP systolic 100–148; BP diastolic 58–74
[~2019-04-22] MED LIST changes: +CYANOCOBALAMIN (B-12) 1000 MCG/1 ML VIAL IM ONE; +CYANOCOBALAMIN (B-12) 1000 MCG/1 ML VIAL ONE; +SODIUM CHLORIDE 0.9% 250 ML IV SCH; +SODIUM CHLORIDE 0.9% 500 ML IV ONE
--- NOTE | 2019-04-22 08:00 | NUR ---
CHF PT ARRIVED TO THE CHF CLINIC FOR TX AND EVAL. A/O X 4 0 DISTRESS VSS
--- NOTE | 2019-04-22 08:25 | NUR ---
IV insertion IV access obtained, via clean sterile technique by inserting 22 gauge catheter at after attempt(s). IV secured properly. No trauma to site. Patient tolerated procedure well.
--- NOTE | 2019-04-22 11:35 | NUR ---
IV removal IV DC'd with sterile technique, catheter fully intact. Pressure dressing applied to site. Patient tolerated procedure well. Discharged with aftercare instructions per MD. NOTE:
--- NOTE | 2019-04-22 11:50 | NUR ---
Discharge Instructions See e-MAR for any mediations given with this visit. Patient education given on disease process. Patient verbalized understanding. Previous labs reviewed. Patient discharged in stable condition with after care instructions and follow up appointment. MEDICATIONS DOBUTAMINE DRIP [id number] Addendum: 04/22/19 at 1225 by MARLEN PLUMMER RN [place] VITAMIN B12 IM NS IV
[2019-04-22 12:08] LABS: Potassium 4.1 mmol/L (3.5-5.1)
== END | disposition home or self-care (01) ==
LOC: CHF HDHVI 08:08
PROVIDERS: ATTEND Internal Medicine Cardiovascular Disease
DX: I11.0 Hypertensive heart disease with heart failure (principal); I50.42 Chronic combined systolic (congestive) and diastolic (congestive) heart failure; I25.10 Atherosclerotic heart disease of native coronary artery without angina pectoris; I48.91 Unspecified atrial fibrillation; I25.2 Old myocardial infarction; I42.8 Other cardiomyopathies; K21.9 Gastro-esophageal reflux disease without esophagitis; J44.9 Chronic obstructive pulmonary disease, unspecified; J96.10 Chronic respiratory failure, unspecified whether with hypoxia or hypercapnia; E78.5 Hyperlipidemia, unspecified; E78.00 Pure hypercholesterolemia, unspecified; E11.9 Type 2 diabetes mellitus without complications; M19.90 Unspecified osteoarthritis, unspecified site; Z87.891 Personal history of nicotine dependence; Z95.1 Presence of aortocoronary bypass graft; Z95.810 Presence of automatic (implantable) cardiac defibrillator; Z95.5 Presence of coronary angioplasty implant and graft; Z79.01 Long term (current) use of anticoagulants; Z90.49 Acquired absence of other specified parts of digestive tract; Z79.899 Other long term (current) drug therapy
CPT/HCPCS: 36415; 82565; 83036; 83880; 84132; 84520; 93701; 96365; 96366; 96372; J1250; J3420; J7040; 96368

== ENCOUNTER → 2019-04-26 | Outpatient (CLI) | payer MEDICARE ==
[2019-04-26] VITALS (8 sets, daily range): BP systolic 100–141; BP diastolic 44–60
[~2019-04-26] MED LIST changes: -CYANOCOBALAMIN (B-12) 1000 MCG/1 ML VIAL IM ONE; -CYANOCOBALAMIN (B-12) 1000 MCG/1 ML VIAL ONE; -SODIUM CHLORIDE 0.9% 250 ML IV SCH; -SODIUM CHLORIDE 0.9% 500 ML IV ONE
--- NOTE | 2019-04-26 08:00 | NUR ---
IV insertion IV access obtained, via clean sterile technique by inserting [22] gauge catheter at [R FA] after [1] attempt(s). IV secured properly. No trauma to site. Patient tolerated procedure well.
--- NOTE | 2019-04-26 11:20 | NUR ---
IV removal IV DC'd with sterile technique, catheter fully intact. Pressure dressing applied to site. Patient tolerated procedure well. Discharged with aftercare instructions per MD.
--- NOTE | 2019-04-26 11:26 | NUR ---
CHF CLINIC Discharge Instructions See e-MAR for any mediations given with this visit. Patient education given on disease process. Patient verbalized understanding. Previous labs reviewed. Patient discharged in stable condition with after care instructions and follow up appointment. NOTE: DOBUTAMINE [id number] ADMIN BY TARYN CULVER
== END | disposition home or self-care (01) ==
LOC: CHF HDHVI 07:54
PROVIDERS: ATTEND Internal Medicine Cardiovascular Disease
DX: I11.0 Hypertensive heart disease with heart failure (principal); I50.42 Chronic combined systolic (congestive) and diastolic (congestive) heart failure; I48.91 Unspecified atrial fibrillation; I25.10 Atherosclerotic heart disease of native coronary artery without angina pectoris; I42.8 Other cardiomyopathies; I25.2 Old myocardial infarction; K21.9 Gastro-esophageal reflux disease without esophagitis; J44.9 Chronic obstructive pulmonary disease, unspecified; E55.9 Vitamin D deficiency, unspecified; J96.10 Chronic respiratory failure, unspecified whether with hypoxia or hypercapnia; E78.5 Hyperlipidemia, unspecified; E78.00 Pure hypercholesterolemia, unspecified; E11.9 Type 2 diabetes mellitus without complications; M19.90 Unspecified osteoarthritis, unspecified site; E43 Unspecified severe protein-calorie malnutrition; Z79.899 Other long term (current) drug therapy; Z95.1 Presence of aortocoronary bypass graft; Z87.891 Personal history of nicotine dependence; Z95.810 Presence of automatic (implantable) cardiac defibrillator; Z90.49 Acquired absence of other specified parts of digestive tract; Z79.01 Long term (current) use of anticoagulants; Z95.5 Presence of coronary angioplasty implant and graft
CPT/HCPCS: 36415; 80162; 82306; 85610; 96365; 96366; G0463; J1250

== ENCOUNTER → 2019-04-29 | Outpatient (CLI) | payer MEDICARE ==
[2019-04-29] VITALS (9 sets, daily range): BP systolic 105–158; BP diastolic 42–66
--- NOTE | 2019-04-29 08:00 | NUR ---
PT. TO CHF CLINIC FOR DOBUTAMINE INFUSION PER DR. MCGRATH. PT. STATES HE HAD A "SO-SO" WEEKEND WITH LACK OF ENERGY AND MINIMAL ENDURANCE. ORDERS RECEIVED AND CARRIED OUT. SEE NSG ASSESS.
--- NOTE | 2019-04-29 08:05 | NUR ---
IV insertion IV access obtained, via clean sterile technique by inserting 22 gauge catheter at after attempt(s). IV secured properly. No trauma to site. Patient tolerated procedure well. LABS DRAWN AND SENT PER MD ORDER.
--- NOTE | 2019-04-29 08:10 | NUR ---
Clinic Provider Clinic Provider into see pt with new orders received and carried out. Dobutamine gtt started at {5}mcg/kg/hr per MD order.
--- NOTE | 2019-04-29 11:11 | NUR ---
IV removal IV DC'd with sterile technique, catheter fully intact. Pressure dressing applied to site. Patient tolerated procedure well. Discharged with aftercare instructions per MD. NOTE:
--- NOTE | 2019-04-29 11:15 | NUR ---
Discharge Instructions See e-MAR for any mediations given with this visit. Patient education given on disease process. Patient verbalized understanding. Previous labs reviewed. Patient discharged in stable condition with after care instructions and follow up appointment. medications DOBUTAMINE DRIP
[2019-04-29 12:15] LABS: Basophils # (auto) 0.1 uL; Basophils % (auto) 1.2 % (0.0-2.0); Eosinophils # (auto) 0.2 uL; Eosinophils % (auto) 3.5 % (0.0-7.0); Hematocrit 31.2 % (41.0-53.0); Hemoglobin 10.2 g/dL (13.5-17.5); Lymphocytes # (auto) 0.8 uL; Lymphocytes % (auto) 14.7 % (10.0-50.0); Mean Corpuscular Hemoglobin 30.5 pg (28.0-32.0); Mean Corpuscular Hgb Conc. 32.7 g/dL (32.0-36.0); Mean Corpuscular Volume 93.4 fL (80.0-100.0); Monocytes # (auto) 0.6 uL; Monocytes % (auto) 10.7 % (0.0-12.0); Neutrophils % (auto) 69.9 % (37.0-80.0); Nucleated Red Blood Cells % 0.2 %; Platelet Count (auto) 259 10^3/uL (140-450); Red Blood Cells 3.34 10^6/uL (4.5-5.90); Red Cell Distribution Width 15.6 % (11.8-14.3); White Blood Cell 5.8 10^3/uL (4.4-10.8)
[2019-04-29 12:20] LABS: Potassium 4.1 mmol/L (3.5-5.1)
[2019-04-29 12:22] LABS: BUN/Creatinine Ratio 20.6; Magnesium 2.6 mg/dL (1.6-2.6)
== END | disposition home or self-care (01) ==
LOC: CHF HDHVI 07:55
PROVIDERS: ATTEND Internal Medicine Cardiovascular Disease
DX: I11.0 Hypertensive heart disease with heart failure (principal); I50.9 Heart failure, unspecified; D64.9 Anemia, unspecified; I25.10 Atherosclerotic heart disease of native coronary artery without angina pectoris; K21.9 Gastro-esophageal reflux disease without esophagitis; Z95.1 Presence of aortocoronary bypass graft; Z95.810 Presence of automatic (implantable) cardiac defibrillator; Z87.891 Personal history of nicotine dependence
CPT/HCPCS: 36415; 80048; 83735; 83880; 85025; 96365; 96366; G0463; J1250

== ENCOUNTER → 2019-05-03 | Outpatient (CLI) | payer MEDICARE ==
[2019-05-03] VITALS (7 sets, daily range): BP systolic 85–137; BP diastolic 40–59
[~2019-05-03] MED LIST changes: +SODIUM CHLORIDE 0.9% 250 ML IV ONE
--- NOTE | 2019-05-03 11:47 | NUR ---
[facility]F CLINIC Discharge Instructions See e-MAR for any mediations given with this visit. Patient education given on disease process. Patient verbalized understanding. Previous labs reviewed. Patient discharged in stable condition with after care instructions and follow up appointment. NOTE DOBUTAMINE [id number] ADMIN BY ARIK CULVER NS [id number] ADMIN BY ARIK CULVER
== END | disposition home or self-care (01) ==
LOC: CHF HDHVI 07:54
PROVIDERS: ATTEND Internal Medicine Cardiovascular Disease
DX: I11.0 Hypertensive heart disease with heart failure (principal); I50.42 Chronic combined systolic (congestive) and diastolic (congestive) heart failure; I25.10 Atherosclerotic heart disease of native coronary artery without angina pectoris; I25.2 Old myocardial infarction; I48.91 Unspecified atrial fibrillation; I42.8 Other cardiomyopathies; I27.21 Secondary pulmonary arterial hypertension; E86.0 Dehydration; R53.83 Other fatigue; R06.02 Shortness of breath; K21.9 Gastro-esophageal reflux disease without esophagitis; J44.9 Chronic obstructive pulmonary disease, unspecified; E78.5 Hyperlipidemia, unspecified; E78.00 Pure hypercholesterolemia, unspecified; E11.9 Type 2 diabetes mellitus without complications; M19.90 Unspecified osteoarthritis, unspecified site; E43 Unspecified severe protein-calorie malnutrition; Z79.899 Other long term (current) drug therapy; Z95.1 Presence of aortocoronary bypass graft; Z85.810 Personal history of malignant neoplasm of tongue; Z90.49 Acquired absence of other specified parts of digestive tract; Z95.5 Presence of coronary angioplasty implant and graft; Z79.01 Long term (current) use of anticoagulants; Z87.891 Personal history of nicotine dependence
CPT/HCPCS: 96365; 96366; G0463; J1250; J7050; 96368

== ENCOUNTER → 2019-05-06 | Outpatient (CLI) | payer MEDICARE ==
[2019-05-06] VITALS (9 sets, daily range): BP systolic 103–118; BP diastolic 41–65
[~2019-05-06] VITALS: Ht 30.5 cm; Wt 56.7 kg
[~2019-05-06] MED LIST changes: +MVI in SODIUM CHLORIDE 0.9% 1,010 ML ONE; +MVI in SODIUM CHLORIDE 0.9% 500 ML IVB ONE; -SODIUM CHLORIDE 0.9% 250 ML IV ONE
--- NOTE | 2019-05-06 08:00 | NUR ---
CHF PT ARRIVED AT THE CHF CLINIC FOR TX AND EVAL. A/O X 4 0 DISTRESS VSS
--- NOTE | 2019-05-06 08:04 | NUR ---
IV insertion IV access obtained, via clean sterile technique by inserting 22 gauge catheter at after attempt(s). IV secured properly. No trauma to site. Patient tolerated procedure well.
--- NOTE | 2019-05-06 11:08 | NUR ---
IV removal IV DC'd with sterile technique, catheter fully intact. Pressure dressing applied to site. Patient tolerated procedure well. Discharged with aftercare instructions per MD. NOTE:
--- NOTE | 2019-05-06 11:08 | NUR ---
Discharge Instructions See e-MAR for any mediations given with this visit. Patient education given on disease process. Patient verbalized understanding. Previous labs reviewed. Patient discharged in stable condition with after care instructions and follow up appointment. medications dobutamine drip [id number] mvi 500ml iv [id number]
== END | disposition home or self-care (01) ==
LOC: CHF HDHVI 08:11
PROVIDERS: ATTEND Internal Medicine Cardiovascular Disease
DX: I11.0 Hypertensive heart disease with heart failure (principal); I50.42 Chronic combined systolic (congestive) and diastolic (congestive) heart failure; J44.9 Chronic obstructive pulmonary disease, unspecified; I25.10 Atherosclerotic heart disease of native coronary artery without angina pectoris; K21.9 Gastro-esophageal reflux disease without esophagitis; E78.5 Hyperlipidemia, unspecified; I25.2 Old myocardial infarction; I27.21 Secondary pulmonary arterial hypertension; E11.9 Type 2 diabetes mellitus without complications; I48.91 Unspecified atrial fibrillation; M19.90 Unspecified osteoarthritis, unspecified site; J96.10 Chronic respiratory failure, unspecified whether with hypoxia or hypercapnia; Z90.49 Acquired absence of other specified parts of digestive tract; Z79.01 Long term (current) use of anticoagulants; Z79.899 Other long term (current) drug therapy; Z85.810 Personal history of malignant neoplasm of tongue; Z87.891 Personal history of nicotine dependence; Z95.810 Presence of automatic (implantable) cardiac defibrillator
CPT/HCPCS: 96365; 96366; 96368; G0463; J1250; J3411; J3475

== ENCOUNTER → 2019-05-10 | Outpatient (CLI) | payer MEDICARE ==
[2019-05-10] VITALS (9 sets, daily range): BP systolic 114–144; BP diastolic 42–61
[~2019-05-10] MED LIST changes: -MVI in SODIUM CHLORIDE 0.9% 1,010 ML ONE; -MVI in SODIUM CHLORIDE 0.9% 500 ML IVB ONE
--- NOTE | 2019-05-10 08:00 | NUR ---
PT. TO CHF CLINIC FOR DOBUTAMINE INFUSION PER MD ORDER. PT. WITH NO INCREASE IN ENERGY SINCE LAST TX. ORDERS RECEIVED AND CARRIED OUT. SEE NSG. ASSESS.
--- NOTE | 2019-05-10 08:05 | NUR ---
IV insertion IV access obtained, via clean sterile technique by inserting 22 gauge catheter at after attempt(s). IV secured properly. No trauma to site. Patient tolerated procedure well. LABS DRAWN AND SENT.
--- NOTE | 2019-05-10 08:10 | NUR ---
Clinic Provider Clinic Provider into see pt with new orders received and carried out. Dobutamine gtt started at {5}mcg/kg/hr per MD order.
--- NOTE | 2019-05-10 11:20 | NUR ---
IV removal IV DC'd with sterile technique, catheter fully intact. Pressure dressing applied to site. Patient tolerated procedure well.
--- NOTE | 2019-05-10 11:23 | NUR ---
CHF CLINIC Discharge Instructions See e-MAR for any mediations given with this visit. Patient education given on disease process. Patient verbalized understanding. Previous labs reviewed. Patient discharged in stable condition with after care instructions and follow up appointment. NOTE DOBUTAMINE [id number] ADMIN BY SLOANE CULVER
== END | disposition home or self-care (01) ==
LOC: CHF HDHVI 07:57
PROVIDERS: ATTEND Internal Medicine Cardiovascular Disease
DX: I11.0 Hypertensive heart disease with heart failure (principal); I50.42 Chronic combined systolic (congestive) and diastolic (congestive) heart failure; I25.10 Atherosclerotic heart disease of native coronary artery without angina pectoris; I48.91 Unspecified atrial fibrillation; I25.2 Old myocardial infarction; I27.21 Secondary pulmonary arterial hypertension; J44.9 Chronic obstructive pulmonary disease, unspecified; I42.8 Other cardiomyopathies; K21.9 Gastro-esophageal reflux disease without esophagitis; J96.10 Chronic respiratory failure, unspecified whether with hypoxia or hypercapnia; E78.5 Hyperlipidemia, unspecified; E11.9 Type 2 diabetes mellitus without complications; M19.90 Unspecified osteoarthritis, unspecified site; E78.00 Pure hypercholesterolemia, unspecified; E43 Unspecified severe protein-calorie malnutrition; Z85.810 Personal history of malignant neoplasm of tongue; Z87.891 Personal history of nicotine dependence; Z95.810 Presence of automatic (implantable) cardiac defibrillator; Z90.49 Acquired absence of other specified parts of digestive tract; Z95.1 Presence of aortocoronary bypass graft; Z79.01 Long term (current) use of anticoagulants; Z95.5 Presence of coronary angioplasty implant and graft
CPT/HCPCS: 83880; 96365; 96366; G0463; J1250

== ENCOUNTER → 2019-05-13 | Outpatient (CLI) | payer MEDICARE ==
[2019-05-13] VITALS (9 sets, daily range): BP systolic 99–148; BP diastolic 46–67
[~2019-05-13] MED LIST changes: +CYANOCOBALAMIN (B-12) 1000 MCG/1 ML VIAL IM ONE; +CYANOCOBALAMIN (B-12) 1000 MCG/1 ML VIAL ONE
--- NOTE | 2019-05-13 08:08 | NUR ---
CHF PT ARRIVED AT THE CHF CLINIC FOR TX AND FOLLOW UP. PT A/O X 4 0 DISTRESS. PT WEIGHT STEADY. Addendum: 05/13/19 at 0839 by MARLEN PLUMMER RN HI VITAL SIGNS ALSO STABLE
--- NOTE | 2019-05-13 08:15 | NUR ---
IV insertion IV access obtained, via clean sterile technique by inserting 22 gauge catheter at after [1 attempt(s). IV secured properly. No trauma to site. Patient tolerated procedure well.BY SLOANE CULVER
--- NOTE | 2019-05-13 11:20 | NUR ---
IV removal IV DC'd with sterile technique, catheter fully intact. Pressure dressing applied to site. Patient tolerated procedure well. Discharged with aftercare instructions per MD. NOTE:
--- NOTE | 2019-05-13 11:22 | NUR ---
Discharge Instructions See e-MAR for any mediations given with this visit. Patient education given on disease process. Patient verbalized understanding. Previous labs reviewed. Patient discharged in stable condition with after care instructions and follow up appointment. MEDICATIONS DOBUTAMINE DRIP [id number] VITAMIN B12 1000 MCG IM X 1 LEFT DELTOID LOT # [id number] EXP 01/06
[2019-05-13 12:23] LABS: Basophils # (auto) 0 uL; Basophils % (auto) 0.7 % (0.0-2.0); Eosinophils # (auto) 0.3 uL; Eosinophils % (auto) 5.4 % (0.0-7.0); Hematocrit 28.7 % (41.0-53.0); Hemoglobin 9.9 g/dL (13.5-17.5); Lymphocytes # (auto) 0.7 uL; Lymphocytes % (auto) 14.8 % (10.0-50.0); Mean Corpuscular Hgb Conc. 34.5 g/dL (32.0-36.0); Monocytes # (auto) 0.4 uL; Monocytes % (auto) 8.1 % (0.0-12.0); Neutrophils # (auto) 3.4 uL; Nucleated Red Blood Cells % 0.1 %; Platelet Count (auto) 238 10^3/uL (140-450); Red Blood Cells 3.19 10^6/uL (4.5-5.90); Red Cell Distribution Width 14.7 % (11.8-14.3); White Blood Cell 4.8 10^3/uL (4.4-10.8)
[2019-05-13 12:26] LABS: Potassium 4.2 mmol/L (3.5-5.1)
[2019-05-13 12:37] LABS: BUN/Creatinine Ratio 23.2; Calcium 8.5 mg/dL (8.5-10.1); Magnesium 2.5 mg/dL (1.6-2.6)
== END | disposition home or self-care (01) ==
LOC: CHF HDHVI 08:06
PROVIDERS: ATTEND Internal Medicine Cardiovascular Disease
DX: I11.0 Hypertensive heart disease with heart failure (principal); I50.42 Chronic combined systolic (congestive) and diastolic (congestive) heart failure; I25.10 Atherosclerotic heart disease of native coronary artery without angina pectoris; I42.8 Other cardiomyopathies; I27.21 Secondary pulmonary arterial hypertension; I25.2 Old myocardial infarction; I48.91 Unspecified atrial fibrillation; R53.83 Other fatigue; J44.9 Chronic obstructive pulmonary disease, unspecified; D64.9 Anemia, unspecified; K21.9 Gastro-esophageal reflux disease without esophagitis; E78.5 Hyperlipidemia, unspecified; E11.9 Type 2 diabetes mellitus without complications; E43 Unspecified severe protein-calorie malnutrition; M19.90 Unspecified osteoarthritis, unspecified site; E78.00 Pure hypercholesterolemia, unspecified; Z85.810 Personal history of malignant neoplasm of tongue; Z87.891 Personal history of nicotine dependence; Z95.1 Presence of aortocoronary bypass graft; Z95.810 Presence of automatic (implantable) cardiac defibrillator; Z95.5 Presence of coronary angioplasty implant and graft; Z90.49 Acquired absence of other specified parts of digestive tract; Z79.899 Other long term (current) drug therapy; Z79.01 Long term (current) use of anticoagulants
CPT/HCPCS: 36415; 80048; 83735; 83880; 85025; 96365; 96366; 96372; G0463; J1250; J3420

== ENCOUNTER → 2019-05-21 | Outpatient (CLI) | payer MEDICARE ==
[2019-05-21] VITALS (9 sets, daily range): BP systolic 113–135; BP diastolic 48–55
[~2019-05-21] MED LIST changes: -CYANOCOBALAMIN (B-12) 1000 MCG/1 ML VIAL IM ONE; -CYANOCOBALAMIN (B-12) 1000 MCG/1 ML VIAL ONE
--- NOTE | 2019-05-21 08:00 | NUR ---
CHF PT ARRIVED AT THE [facility] FOR TREATMENT AND FOLLOW UP. A/O X 4 0 DISTRESS. VSS
--- NOTE | 2019-05-21 08:40 | NUR ---
IV insertion IV access obtained, via clean sterile technique by inserting 22 gauge catheter at after attempt(s). IV secured properly. No trauma to site. Patient tolerated procedure well.
--- NOTE | 2019-05-21 08:45 | NUR ---
Clinic Provider Clinic Provider updated with patient status, new orders received and carried out. Dobutamine gtt started at {5}mcg/kg/hr per MD order.
--- NOTE | 2019-05-21 11:45 | NUR ---
IV removal IV DC'd with sterile technique, catheter fully intact. Pressure dressing applied to site. Patient tolerated procedure well. Discharged with aftercare instructions per MD. NOTE:
--- NOTE | 2019-05-21 11:47 | NUR ---
Discharge Instructions See e-MAR for any mediations given with this visit. Patient education given on disease process. Patient verbalized understanding. Previous labs reviewed. Patient discharged in stable condition with after care instructions and follow up appointment. MEDICATIONS DOBUTAMINE DRIP [id number]
[2019-05-21 12:13] LABS: Albumin 3.2 g/dL (3.4-5.0); Calcium 8.3 mg/dL (8.5-10.1); Potassium 4.2 mmol/L (3.5-5.1)
[2019-05-21 12:14] LABS: Basophils # (auto) 0 uL; Basophils % (auto) 0.5 % (0.0-2.0); Eosinophils # (auto) 0.2 uL; Eosinophils % (auto) 2.4 % (0.0-7.0); Hematocrit 29.4 % (41.0-53.0); Lymphocytes # (auto) 0.5 uL; Lymphocytes % (auto) 8.4 % (10.0-50.0); Mean Corpuscular Hemoglobin 31.4 pg (28.0-32.0); Mean Corpuscular Hgb Conc. 33.9 g/dL (32.0-36.0); Mean Corpuscular Volume 92.6 fL (80.0-100.0); Monocytes # (auto) 0.4 uL; Monocytes % (auto) 6.8 % (0.0-12.0); Neutrophils # (auto) 5.3 uL; Neutrophils % (auto) 81.9 % (37.0-80.0); Platelet Count (auto) 219 10^3/uL (140-450); Red Blood Cells 3.17 10^6/uL (4.5-5.90); Red Cell Distribution Width 14.8 % (11.8-14.3); White Blood Cell 6.5 10^3/uL (4.4-10.8)
[2019-05-21 12:17] LABS: BUN/Creatinine Ratio 23.2; Bilirubin, Total 0.7 mg/dL (0.2-1.0); Total Protein 7.4 g/dL (6.4-8.2)
== END | disposition home or self-care (01) ==
LOC: CHF HDHVI 08:11
PROVIDERS: ATTEND Internal Medicine Cardiovascular Disease
DX: I11.0 Hypertensive heart disease with heart failure (principal); I50.42 Chronic combined systolic (congestive) and diastolic (congestive) heart failure; I25.10 Atherosclerotic heart disease of native coronary artery without angina pectoris; I48.91 Unspecified atrial fibrillation; I27.21 Secondary pulmonary arterial hypertension; J44.9 Chronic obstructive pulmonary disease, unspecified; K21.9 Gastro-esophageal reflux disease without esophagitis; E78.5 Hyperlipidemia, unspecified; D51.9 Vitamin B12 deficiency anemia, unspecified; I25.2 Old myocardial infarction; J96.10 Chronic respiratory failure, unspecified whether with hypoxia or hypercapnia; E78.00 Pure hypercholesterolemia, unspecified; E11.9 Type 2 diabetes mellitus without complications; M19.90 Unspecified osteoarthritis, unspecified site; E43 Unspecified severe protein-calorie malnutrition; Z79.899 Other long term (current) drug therapy; Z85.810 Personal history of malignant neoplasm of tongue; Z87.891 Personal history of nicotine dependence; Z95.1 Presence of aortocoronary bypass graft; Z95.810 Presence of automatic (implantable) cardiac defibrillator; Z95.5 Presence of coronary angioplasty implant and graft; Z79.01 Long term (current) use of anticoagulants; Z90.49 Acquired absence of other specified parts of digestive tract
CPT/HCPCS: 36415; 80053; 82607; 83880; 85025; 96365; 96366; G0463; J1250

== ENCOUNTER → 2019-05-24 | Outpatient (CLI) | payer MEDICARE ==
[2019-05-24] VITALS (10 sets, daily range): BP systolic 91–148; BP diastolic 41–60
[~2019-05-24] MED LIST changes: +DOBUTamine 1000MCG/ML 250 ML IV SCH
--- NOTE | 2019-05-24 08:18 | NUR ---
IV insertion IV access obtained, via clean sterile technique by inserting [22] gauge catheter at [R FA] after [A] attempt(s), INSERTED BY SLOANE CULVER. IV secured properly. No trauma to site. Patient tolerated procedure well.
--- NOTE | 2019-05-24 11:30 | NUR ---
IV removal IV DC'd with sterile technique, catheter fully intact. Pressure dressing applied to site. Patient tolerated procedure well. Discharged with aftercare instructions per MD.
--- NOTE | 2019-05-24 11:35 | NUR ---
CHF CLINICDischarge Instructions See e-MAR for any mediations given with this visit. Patient education given on disease process. Patient verbalized understanding. Previous labs reviewed. Patient discharged in stable condition with after care instructions and follow up appointment. NOTE DOBUTAMINE [id number] ADMIN BY SLOANE CULVER
== END | disposition home or self-care (01) ==
LOC: CHF HDHVI 08:19
PROVIDERS: ATTEND Internal Medicine Cardiovascular Disease
DX: I11.0 Hypertensive heart disease with heart failure (principal); I50.42 Chronic combined systolic (congestive) and diastolic (congestive) heart failure; I25.10 Atherosclerotic heart disease of native coronary artery without angina pectoris; I42.8 Other cardiomyopathies; I25.2 Old myocardial infarction; I48.91 Unspecified atrial fibrillation; I27.21 Secondary pulmonary arterial hypertension; J44.9 Chronic obstructive pulmonary disease, unspecified; J96.10 Chronic respiratory failure, unspecified whether with hypoxia or hypercapnia; K21.9 Gastro-esophageal reflux disease without esophagitis; E78.5 Hyperlipidemia, unspecified; E78.00 Pure hypercholesterolemia, unspecified; E11.9 Type 2 diabetes mellitus without complications; M19.90 Unspecified osteoarthritis, unspecified site; E43 Unspecified severe protein-calorie malnutrition; Z79.899 Other long term (current) drug therapy; Z85.810 Personal history of malignant neoplasm of tongue; Z87.891 Personal history of nicotine dependence; Z95.1 Presence of aortocoronary bypass graft; Z95.810 Presence of automatic (implantable) cardiac defibrillator; Z95.5 Presence of coronary angioplasty implant and graft; Z79.01 Long term (current) use of anticoagulants; Z90.49 Acquired absence of other specified parts of digestive tract
CPT/HCPCS: 96365; 96366; G0463; J1250

== ENCOUNTER → 2019-05-27 | Outpatient (CLI) | payer MEDICARE ==
[2019-05-27] VITALS (9 sets, daily range): BP systolic 97–135; BP diastolic 35–59
[~2019-05-27] MED LIST changes: +CYANOCOBALAMIN (B-12) 1000 MCG/1 ML VIAL IM ONE; +CYANOCOBALAMIN (B-12) 1000 MCG/1 ML VIAL ONE; -DOBUTamine 1000MCG/ML 250 ML IV SCH; +SODIUM CHLORIDE 0.9% 250 ML IV ONE
[2019-05-27 12:24] LABS: Basophils # (auto) 0.1 uL; Eosinophils # (auto) 0.3 uL; Eosinophils % (auto) 3.8 % (0.0-7.0); Lymphocytes # (auto) 0.7 uL; Mean Corpuscular Hemoglobin 30.7 pg (28.0-32.0); Mean Corpuscular Hgb Conc. 33.4 g/dL (32.0-36.0); Mean Corpuscular Volume 91.8 fL (80.0-100.0); Monocytes # (auto) 0.6 uL; Monocytes % (auto) 8.9 % (0.0-12.0); Neutrophils # (auto) 5.1 uL; Neutrophils % (auto) 76.3 % (37.0-80.0); Platelet Count (auto) 251 10^3/uL (140-450); Red Blood Cells 3.27 10^6/uL (4.5-5.90); Red Cell Distribution Width 14.6 % (11.8-14.3); White Blood Cell 6.7 10^3/uL (4.4-10.8)
== END | disposition home or self-care (01) ==
LOC: CHF HDHVI 08:13
PROVIDERS: ATTEND Internal Medicine Cardiovascular Disease
DX: I11.0 Hypertensive heart disease with heart failure (principal); I50.42 Chronic combined systolic (congestive) and diastolic (congestive) heart failure; D64.9 Anemia, unspecified; R53.83 Other fatigue; I48.91 Unspecified atrial fibrillation; I25.10 Atherosclerotic heart disease of native coronary artery without angina pectoris; I27.21 Secondary pulmonary arterial hypertension; I25.2 Old myocardial infarction; I42.8 Other cardiomyopathies; J96.10 Chronic respiratory failure, unspecified whether with hypoxia or hypercapnia; J43.9 Emphysema, unspecified; K21.9 Gastro-esophageal reflux disease without esophagitis; E78.5 Hyperlipidemia, unspecified; E78.00 Pure hypercholesterolemia, unspecified; M19.90 Unspecified osteoarthritis, unspecified site; E43 Unspecified severe protein-calorie malnutrition; Z79.899 Other long term (current) drug therapy; Z85.810 Personal history of malignant neoplasm of tongue; Z87.891 Personal history of nicotine dependence; Z95.1 Presence of aortocoronary bypass graft; Z95.810 Presence of automatic (implantable) cardiac defibrillator; Z95.5 Presence of coronary angioplasty implant and graft; Z90.49 Acquired absence of other specified parts of digestive tract; Z79.01 Long term (current) use of anticoagulants
CPT/HCPCS: 36415; 83880; 85025; 85610; 96361; 96365; 96366; 96372; G0463; J1250; J3420; J7050; 96367; 96375

== ENCOUNTER → 2019-05-31 | Outpatient (CLI) | payer MEDICARE ==
[~2019-05-31] VITALS: Ht 165.1 cm; Wt 57.9 kg
[2019-05-31] VITALS (11 sets, daily range): BP systolic 91–135; BP diastolic 44–59
[~2019-05-31] MED LIST changes: +BACITRACIN TOP OINT 1 UD PKG TOP ONE; -CYANOCOBALAMIN (B-12) 1000 MCG/1 ML VIAL IM ONE; -CYANOCOBALAMIN (B-12) 1000 MCG/1 ML VIAL ONE; -SODIUM CHLORIDE 0.9% 250 ML IV ONE
--- NOTE | 2019-05-31 08:30 | NUR ---
IV insertion IV access obtained BY SLOANE CULVER, via clean sterile technique by inserting [22] gauge catheter at [L WRIST] after [1] attempt(s). IV secured properly. No trauma to site. Patient tolerated procedure well.
--- NOTE | 2019-05-31 11:40 | NUR ---
IV removal IV DC'd with sterile technique BY SLOANE CULVER, catheter fully intact. Pressure dressing applied to site. Patient tolerated procedure well. Discharged with aftercare instructions per MD.
--- NOTE | 2019-05-31 11:45 | NUR ---
WOUND CARE PT CAME IN WITH SKIN TEAR TO RIGHT FA. WOUND CARE PROVIDED BY SLOANE CULVER. WOUND CLEANED WITH SALINE, PATTED DRY, BACITRACIN OINTMENT APPLIED, COVERED WITH TEFLA PAD AND SECURED WITH TEGADERM. PATIENT TOLERATED WELL. SUPPLIES PROVIDED TO PATIENT AND SLOANE CULVER PROVIDED PT WITH EDUCATED FOR HOME CARE FOR WOUND. PATIENT VERBALIZED UNDERSTANDING.
--- NOTE | 2019-05-31 11:58 | NUR ---
INR CHECKED 2.1 BY TARYN LUNA, PT PT EDUCATED BY SLOANE CULVER TO CONTINUE TAKING 6 MG DOSAGE. PT VERBALIZED UNDERSTANDING.
--- NOTE | 2019-05-31 11:58 | NUR ---
CHF CLINIC Discharge Instructions See e-MAR for any mediations given with this visit. Patient education given on disease process. Patient verbalized understanding. Previous labs reviewed. Patient discharged in stable condition with after care instructions and follow up appointment. NOTES DOBUTAMINE [id number] ADMIN BY SLOANE CULVER BACITRACIN TOPICAL OINTMENT ADMIN BY SLOANE CULVERPRODUCT SUPPORT REPRESENTATIVE TO RIGHT FOREARM PERFORMED BY SLOANE CULVER Addendum: 05/31/19 at 1252 by TARYN MANNING RN INR CHECK PERFORMED BY TARYN LUNA
== END | disposition home or self-care (01) ==
LOC: CHF HDHVI 08:15
PROVIDERS: ATTEND Internal Medicine Cardiovascular Disease
DX: I11.0 Hypertensive heart disease with heart failure (principal); I50.42 Chronic combined systolic (congestive) and diastolic (congestive) heart failure; S51.811A Laceration without foreign body of right forearm, initial encounter; I48.91 Unspecified atrial fibrillation; I25.10 Atherosclerotic heart disease of native coronary artery without angina pectoris; J44.9 Chronic obstructive pulmonary disease, unspecified; K21.9 Gastro-esophageal reflux disease without esophagitis; E78.5 Hyperlipidemia, unspecified; E78.00 Pure hypercholesterolemia, unspecified; E11.9 Type 2 diabetes mellitus without complications; M19.90 Unspecified osteoarthritis, unspecified site; Z90.49 Acquired absence of other specified parts of digestive tract; Z79.01 Long term (current) use of anticoagulants; Z95.810 Presence of automatic (implantable) cardiac defibrillator; Z95.5 Presence of coronary angioplasty implant and graft; X58.XXXA Exposure to other specified factors, initial encounter
CPT/HCPCS: 96365; 96366; G0463; J1250

== ENCOUNTER → 2019-06-03 | Outpatient (CLI) | payer MEDICARE ==
[~2019-06-03] VITALS: Ht 30.5 cm; Wt 56.7 kg
[2019-06-03] VITALS (8 sets, daily range): BP systolic 99–118; BP diastolic 19–77
--- NOTE | 2019-06-03 08:15 | NUR ---
Clinic Provider Clinic Provider updated with patient status new orders received and carried out. Dobutamine gtt started at {5}mcg/kg/hr per MD order.
--- NOTE | 2019-06-03 08:15 | NUR ---
CHF PT AT THE CLINIC FOR TX AND EVAL. PT IS ALERT AND ORIENTED 0 DISTRESS, VSS.
--- NOTE | 2019-06-03 08:25 | NUR ---
IV insertion IV access obtained, via clean sterile technique by inserting 22 gauge catheter at after attempt(s). IV secured properly. No trauma to site. Patient tolerated procedure well.
--- NOTE | 2019-06-03 11:26 | NUR ---
IV removal IV DC'd with sterile technique, catheter fully intact. Pressure dressing applied to site. Patient tolerated procedure well. Discharged with aftercare instructions per MD. NOTE:
--- NOTE | 2019-06-03 11:41 | NUR ---
Discharge Instructions See e-MAR for any mediations given with this visit. Patient education given on disease process. Patient verbalized understanding. Previous labs reviewed. Patient discharged in stable condition with after care instructions and follow up appointment. MEDICATIONS DOBUTAMINE DRIP [id number] BACITRACIN I PACKET
[2019-06-03 12:19] LABS: Basophils # (auto) 0.1 uL; Eosinophils # (auto) 0.3 uL; Eosinophils % (auto) 4.6 % (0.0-7.0); Hematocrit 30.7 % (41.0-53.0); Hemoglobin 10.3 g/dL (13.5-17.5); Lymphocytes # (auto) 0.7 uL; Lymphocytes % (auto) 10.9 % (10.0-50.0); Mean Corpuscular Hemoglobin 30.9 pg (28.0-32.0); Mean Corpuscular Hgb Conc. 33.7 g/dL (32.0-36.0); Mean Corpuscular Volume 91.6 fL (80.0-100.0); Monocytes # (auto) 0.3 uL; Monocytes % (auto) 5.8 % (0.0-12.0); Neutrophils # (auto) 4.7 uL; Neutrophils % (auto) 77.7 % (37.0-80.0); Nucleated Red Blood Cells % 0.1 %; Platelet Count (auto) 227 10^3/uL (140-450); Red Blood Cells 3.35 10^6/uL (4.5-5.90); Red Cell Distribution Width 14.5 % (11.8-14.3)
[2019-06-03 12:24] LABS: Potassium 3.7 mmol/L (3.5-5.1)
== END | disposition home or self-care (01) ==
LOC: CHF HDHVI 08:13
PROVIDERS: ATTEND Internal Medicine Cardiovascular Disease
DX: I11.0 Hypertensive heart disease with heart failure (principal); I50.42 Chronic combined systolic (congestive) and diastolic (congestive) heart failure; J43.9 Emphysema, unspecified; I25.10 Atherosclerotic heart disease of native coronary artery without angina pectoris; I25.2 Old myocardial infarction; I27.21 Secondary pulmonary arterial hypertension; I42.8 Other cardiomyopathies; E87.6 Hypokalemia; D64.9 Anemia, unspecified; R94.4 Abnormal results of kidney function studies; K21.9 Gastro-esophageal reflux disease without esophagitis; E78.00 Pure hypercholesterolemia, unspecified; E11.9 Type 2 diabetes mellitus without complications; M19.90 Unspecified osteoarthritis, unspecified site; J96.10 Chronic respiratory failure, unspecified whether with hypoxia or hypercapnia; E43 Unspecified severe protein-calorie malnutrition; Z79.01 Long term (current) use of anticoagulants; Z95.810 Presence of automatic (implantable) cardiac defibrillator; Z95.5 Presence of coronary angioplasty implant and graft; Z79.899 Other long term (current) drug therapy; Z85.810 Personal history of malignant neoplasm of tongue; Z87.891 Personal history of nicotine dependence; Z95.1 Presence of aortocoronary bypass graft; Z90.49 Acquired absence of other specified parts of digestive tract
CPT/HCPCS: 36415; 82565; 83880; 84132; 84520; 85025; 85610; 96365; 96366; G0463; J1250

== ENCOUNTER → 2019-06-07 | Outpatient (CLI) | payer MEDICARE ==
[2019-06-07] VITALS (9 sets, daily range): BP systolic 96–145; BP diastolic 42–57
[~2019-06-07] VITALS: Ht 30.5 cm; Wt 57.7 kg
[~2019-06-07] MED LIST changes: +CYANOCOBALAMIN (B-12) 1000 MCG/1 ML VIAL IM ONE; +CYANOCOBALAMIN (B-12) 1000 MCG/1 ML VIAL ONE
--- NOTE | 2019-06-07 08:20 | NUR ---
IV insertion IV access obtained BY SLOANE CULVER, via clean sterile technique by inserting [22] gauge catheter at [R FA] after [1] attempt(s). IV secured properly. No trauma to site. Patient tolerated procedure well.
--- NOTE | 2019-06-07 08:45 | NUR ---
WOUND CARE WOUND TO R FA REDRESSED. PRIOR DRESSING REMOVED, SKIN TEAR CLEANED WITH SALINE, PATTED DRY, BACITRICIN OINTMENT APPLIED AND COVERED WITH A BANDAID. PT TOLERATED WELL. PT EDUCATED REGARDING WOUND CARE AT HOME. PT VERBALIZED UNDERSTANDING. Addendum: 06/07/19 at 1034 by TARYN MANNING RN 2ND SKIN TEAR TO R FA HEALING WELL, SITE CLEANED WITH SALINE, PATTED DRY AND LEFT OPEN TO AIR.
--- NOTE | 2019-06-07 11:30 | NUR ---
IV removal IV DC'd with sterile technique, catheter fully intact. Pressure dressing applied to site. Patient tolerated procedure well. Discharged with aftercare instructions per MD.
--- NOTE | 2019-06-07 11:36 | NUR ---
CHF CLINIC Discharge Instructions See e-MAR for any mediations given with this visit. Patient education given on disease process. Patient verbalized understanding. Previous labs reviewed. Patient discharged in stable condition with after care instructions and follow up appointment. NOTES DOBUTAMINE IV [id number] ADMIN BY SLOANE CULVER VIT B12 IM LEFT DELTOID ADMIN BY TARYN CULVER BACITRACIN TOPICAL OINTMENT RIGHT FOREARM ADMIN BY TARYN CULVER INR CHECKED, 2.4, PT EDUCATED TO REMAIN TAKING SAME COUMADIN DOSAGE OF 5 MG.
== END | disposition home or self-care (01) ==
LOC: CHF HDHVI 08:10
PROVIDERS: ATTEND Internal Medicine Cardiovascular Disease
DX: I11.0 Hypertensive heart disease with heart failure (principal); I50.42 Chronic combined systolic (congestive) and diastolic (congestive) heart failure; I48.91 Unspecified atrial fibrillation; I25.10 Atherosclerotic heart disease of native coronary artery without angina pectoris; I25.2 Old myocardial infarction; I42.8 Other cardiomyopathies; I27.21 Secondary pulmonary arterial hypertension; D64.9 Anemia, unspecified; S51.811D Laceration without foreign body of right forearm, subsequent encounter; J96.10 Chronic respiratory failure, unspecified whether with hypoxia or hypercapnia; J43.9 Emphysema, unspecified; K21.9 Gastro-esophageal reflux disease without esophagitis; E78.00 Pure hypercholesterolemia, unspecified; E11.9 Type 2 diabetes mellitus without complications; M19.90 Unspecified osteoarthritis, unspecified site; E43 Unspecified severe protein-calorie malnutrition; E78.5 Hyperlipidemia, unspecified; Z79.01 Long term (current) use of anticoagulants; Z79.899 Other long term (current) drug therapy; Z85.810 Personal history of malignant neoplasm of tongue; Z87.891 Personal history of nicotine dependence; Z95.810 Presence of automatic (implantable) cardiac defibrillator; Z95.5 Presence of coronary angioplasty implant and graft; Z90.49 Acquired absence of other specified parts of digestive tract
CPT/HCPCS: 85610; 96365; 96366; 96372; G0463; J1250; J3420

== ENCOUNTER → 2019-06-10 | Outpatient (CLI) | payer MEDICARE ==
[2019-06-10] VITALS (8 sets, daily range): BP systolic 118–147; BP diastolic 59–73
[~2019-06-10] MED LIST changes: -BACITRACIN TOP OINT 1 UD PKG TOP ONE; -CYANOCOBALAMIN (B-12) 1000 MCG/1 ML VIAL IM ONE; -CYANOCOBALAMIN (B-12) 1000 MCG/1 ML VIAL ONE
--- NOTE | 2019-06-10 08:13 | NUR ---
IV insertion IV access obtained, via clean sterile technique by inserting 22 gauge catheter at after attempt(s). IV secured properly. No trauma to site. Patient tolerated procedure well. STARTED BY ROSE CULVER
--- NOTE | 2019-06-10 11:25 | NUR ---
IV removal IV DC'd with sterile technique, catheter fully intact. Pressure dressing applied to site. Patient tolerated procedure well. Discharged with aftercare instructions per MD. NOTE: BY LADARIUS CULVER
--- NOTE | 2019-06-10 11:30 | NUR ---
Discharge Instructions See e-MAR for any mediations given with this visit. Patient education given on disease process. Patient verbalized understanding. Previous labs reviewed. Patient discharged in stable condition with after care instructions and follow up appointment. MEDICATION DOBUTAMINE DRIP [id number]
[2019-06-10 12:08] LABS: Potassium 3.9 mmol/L (3.5-5.1)
[2019-06-10 12:14] LABS: BUN/Creatinine Ratio 20.2; Calcium 8.5 mg/dL (8.5-10.1); Magnesium 2.4 mg/dL (1.6-2.6)
== END | disposition home or self-care (01) ==
LOC: CHF HDHVI 08:23
PROVIDERS: ATTEND Internal Medicine Cardiovascular Disease
DX: I11.0 Hypertensive heart disease with heart failure (principal); I50.42 Chronic combined systolic (congestive) and diastolic (congestive) heart failure; I25.10 Atherosclerotic heart disease of native coronary artery without angina pectoris; J43.9 Emphysema, unspecified; I42.8 Other cardiomyopathies; I25.2 Old myocardial infarction; I48.91 Unspecified atrial fibrillation; I27.21 Secondary pulmonary arterial hypertension; J96.10 Chronic respiratory failure, unspecified whether with hypoxia or hypercapnia; K21.9 Gastro-esophageal reflux disease without esophagitis; E78.5 Hyperlipidemia, unspecified; M19.90 Unspecified osteoarthritis, unspecified site; E11.9 Type 2 diabetes mellitus without complications; E78.00 Pure hypercholesterolemia, unspecified; E43 Unspecified severe protein-calorie malnutrition; Z95.1 Presence of aortocoronary bypass graft; Z79.899 Other long term (current) drug therapy; Z85.810 Personal history of malignant neoplasm of tongue; Z87.891 Personal history of nicotine dependence; Z95.810 Presence of automatic (implantable) cardiac defibrillator; Z95.5 Presence of coronary angioplasty implant and graft; Z79.01 Long term (current) use of anticoagulants; Z90.49 Acquired absence of other specified parts of digestive tract
CPT/HCPCS: 36415; 80048; 83735; 83880; 96365; 96366; G0463; J1250

== ENCOUNTER → 2019-06-14 | Outpatient (CLI) | payer MEDICARE ==
[2019-06-14] VITALS (10 sets, daily range): BP systolic 106–134; BP diastolic 48–65
--- NOTE | 2019-06-14 08:18 | NUR ---
IV insertion IV access obtained, via clean sterile technique by inserting [22] gauge catheter at [LEFT UPPER ARM] after [1] attempt(s). IV secured properly. No trauma to site. Patient tolerated procedure well.
--- NOTE | 2019-06-14 11:30 | NUR ---
IV removal IV DC'd with sterile technique, catheter fully intact. Pressure dressing applied to site. Patient tolerated procedure well. Discharged with aftercare instructions per MD. NOTE: D/C'D BY TARYN LUNA
--- NOTE | 2019-06-14 11:40 | NUR ---
CHF CLINIC Discharge Instructions See e-MAR for any mediations given with this visit. Patient education given on disease process. Patient verbalized understanding. Previous labs reviewed. Patient discharged in stable condition with after care instructions and follow up appointment. NOTES DOBUTAMINE IV [id number] ADMIN BY ARIK CULVER
== END | disposition home or self-care (01) ==
LOC: CHF HDHVI 08:29
PROVIDERS: ATTEND Internal Medicine Cardiovascular Disease
DX: I11.0 Hypertensive heart disease with heart failure (principal); I50.42 Chronic combined systolic (congestive) and diastolic (congestive) heart failure; I25.10 Atherosclerotic heart disease of native coronary artery without angina pectoris; I48.91 Unspecified atrial fibrillation; I25.2 Old myocardial infarction; I27.21 Secondary pulmonary arterial hypertension; I42.8 Other cardiomyopathies; J96.10 Chronic respiratory failure, unspecified whether with hypoxia or hypercapnia; J43.9 Emphysema, unspecified; K21.9 Gastro-esophageal reflux disease without esophagitis; E78.00 Pure hypercholesterolemia, unspecified; M19.90 Unspecified osteoarthritis, unspecified site; E43 Unspecified severe protein-calorie malnutrition; E11.9 Type 2 diabetes mellitus without complications; Z79.899 Other long term (current) drug therapy; Z87.891 Personal history of nicotine dependence; Z95.1 Presence of aortocoronary bypass graft; Z95.810 Presence of automatic (implantable) cardiac defibrillator; Z95.5 Presence of coronary angioplasty implant and graft; Z90.49 Acquired absence of other specified parts of digestive tract; Z79.01 Long term (current) use of anticoagulants
CPT/HCPCS: 96365; 96366; G0463; J1250

== ENCOUNTER → 2019-06-17 | Outpatient (CLI) | payer MEDICARE ==
[2019-06-17] VITALS (9 sets, daily range): BP systolic 90–122; BP diastolic 38–55
[~2019-06-17] MED LIST changes: +SODIUM CHLORIDE 0.9% 250 ML IV ONE
--- NOTE | 2019-06-17 08:20 | NUR ---
IV insertion IV access obtained, via clean sterile technique by inserting 22 gauge catheter at after attempt(s). IV secured properly. No trauma to site. Patient tolerated procedure well. ROSE CULVER STARTED IV
--- NOTE | 2019-06-17 09:00 | NUR ---
BP BP LOWER 91/46 (59) PT WEIGHT DOWN, ORDER RECEIVED FOR 250 ML NS OVER 2 HRS. STARTED IV FLUID
--- NOTE | 2019-06-17 09:54 | NUR ---
BP 95/44 MAP (66) PT BP MAINTAINING, 0 DISTRESS
--- NOTE | 2019-06-17 11:30 | NUR ---
IV removal IV DC'd with sterile technique, catheter fully intact. Pressure dressing applied to site. Patient tolerated procedure well. Discharged with aftercare instructions per MD. NOTE: DC BY DAYANARA CULVER
--- NOTE | 2019-06-17 11:33 | NUR ---
Discharge Instructions See e-MAR for any mediations given with this visit. Patient education given on disease process. Patient verbalized understanding. Previous labs reviewed. Patient discharged in stable condition with after care instructions and follow up appointment. MEDICATIONS DOBUTAMINE DRIP [id number] NS 250 ML IV [id number]
[2019-06-17 12:06] LABS: Basophils # (auto) 0.1 uL; Eosinophils # (auto) 0.3 uL; Neutrophils # (auto) 5.8 uL; Nucleated Red Blood Cells % 0.1 %
[2019-06-17 12:10] LABS: Basophils % (auto) 1.2 % (0.0-2.0); Hematocrit 23.9 % (41.0-53.0); Mean Corpuscular Hemoglobin 30.5 pg (28.0-32.0); Mean Corpuscular Hgb Conc. 33.7 g/dL (32.0-36.0); Mean Corpuscular Volume 90.5 fL (80.0-100.0); Monocytes # (auto) 0.5 uL; Monocytes % (auto) 7.1 % (0.0-12.0); Neutrophils % (auto) 74.7 % (37.0-80.0); Platelet Count (auto) 349 10^3/uL (140-450); Red Blood Cells 2.64 10^6/uL (4.5-5.90); White Blood Cell 7.8 10^3/uL (4.4-10.8)
[2019-06-17 12:28] LABS: BUN/Creatinine Ratio 22.4; Calcium 8.9 mg/dL (8.5-10.1); Magnesium 2.6 mg/dL (1.6-2.6)
== END | disposition home or self-care (01) ==
LOC: CHF HDHVI 08:24
PROVIDERS: ATTEND Internal Medicine Cardiovascular Disease
DX: I11.0 Hypertensive heart disease with heart failure (principal); I50.42 Chronic combined systolic (congestive) and diastolic (congestive) heart failure; I25.10 Atherosclerotic heart disease of native coronary artery without angina pectoris; I25.2 Old myocardial infarction; I42.8 Other cardiomyopathies; I27.21 Secondary pulmonary arterial hypertension; J43.9 Emphysema, unspecified; I48.91 Unspecified atrial fibrillation; D64.9 Anemia, unspecified; J96.10 Chronic respiratory failure, unspecified whether with hypoxia or hypercapnia; K21.9 Gastro-esophageal reflux disease without esophagitis; E78.5 Hyperlipidemia, unspecified; E11.9 Type 2 diabetes mellitus without complications; E43 Unspecified severe protein-calorie malnutrition; Z79.899 Other long term (current) drug therapy; Z85.810 Personal history of malignant neoplasm of tongue; Z87.891 Personal history of nicotine dependence; Z95.810 Presence of automatic (implantable) cardiac defibrillator; Z95.1 Presence of aortocoronary bypass graft; Z90.49 Acquired absence of other specified parts of digestive tract; Z95.5 Presence of coronary angioplasty implant and graft; Z79.01 Long term (current) use of anticoagulants
CPT/HCPCS: 36415; 80048; 83735; 83880; 85025; 96365; 96366; G0463; J1250; J7050; 96367; 96375

== ENCOUNTER → 2019-06-21 | Outpatient (CLI) | payer MEDICARE ==
[2019-06-21] VITALS (7 sets, daily range): BP systolic 95–127; BP diastolic 40–71
[~2019-06-21] MED LIST changes: +CYANOCOBALAMIN (B-12) 1000 MCG/1 ML VIAL IM ONE; +CYANOCOBALAMIN (B-12) 1000 MCG/1 ML VIAL ONE
--- NOTE | 2019-06-21 08:12 | NUR ---
CHF PT ARRIVED AT THE CHF CLINIC FOR TX AND FOLLOW UP , VSS A/O X 4
--- NOTE | 2019-06-21 08:20 | NUR ---
IV insertion IV access obtained, via clean sterile technique by inserting 22 gauge catheter at after attempt(s). IV secured properly. No trauma to site. Patient tolerated procedure well.
[2019-06-21 08:49] LABS: Basophils # (auto) 0.1 uL; Basophils % (auto) 0.9 % (0.0-2.0); Eosinophils # (auto) 0.2 uL; Eosinophils % (auto) 3.8 % (0.0-7.0); Hematocrit 31.7 % (41.0-53.0); Hemoglobin 10.6 g/dL (13.5-17.5); Lymphocytes # (auto) 0.6 uL; Lymphocytes % (auto) 11.1 % (10.0-50.0); Mean Corpuscular Hemoglobin 30.5 pg (28.0-32.0); Mean Corpuscular Hgb Conc. 33.4 g/dL (32.0-36.0); Mean Corpuscular Volume 91.2 fL (80.0-100.0); Monocytes # (auto) 0.5 uL; Monocytes % (auto) 8.4 % (0.0-12.0); Neutrophils # (auto) 4.2 uL; Neutrophils % (auto) 75.8 % (37.0-80.0); Platelet Count (auto) 274 10^3/uL (140-450); Red Blood Cells 3.48 10^6/uL (4.5-5.90); Red Cell Distribution Width 13.7 % (11.8-14.3); White Blood Cell 5.6 10^3/uL (4.4-10.8)
--- NOTE | 2019-06-21 11:30 | NUR ---
IV removal IV DC'd with sterile technique, catheter fully intact. Pressure dressing applied to site. Patient tolerated procedure well. Discharged with aftercare instructions per MD. NOTE:
--- NOTE | 2019-06-21 11:33 | NUR ---
Discharge Instructions See e-MAR for any mediations given with this visit. Patient education given on disease process. Patient verbalized understanding. Previous labs reviewed. Patient discharged in stable condition with after care instructions and follow up appointment. MEDICATIONS DOBUTAMINE DRIP [id number] Addendum: 06/21/19 at 1427 by MARLEN PLUMMER RN SC NS 250 ML IV [id number]
== END | disposition home or self-care (01) ==
LOC: CHF HDHVI 08:11
PROVIDERS: ATTEND Internal Medicine Cardiovascular Disease
DX: I11.0 Hypertensive heart disease with heart failure (principal); I50.42 Chronic combined systolic (congestive) and diastolic (congestive) heart failure; J43.9 Emphysema, unspecified; D64.9 Anemia, unspecified; I25.10 Atherosclerotic heart disease of native coronary artery without angina pectoris; I48.91 Unspecified atrial fibrillation; I25.2 Old myocardial infarction; I27.21 Secondary pulmonary arterial hypertension; I42.8 Other cardiomyopathies; J96.10 Chronic respiratory failure, unspecified whether with hypoxia or hypercapnia; K21.9 Gastro-esophageal reflux disease without esophagitis; E78.5 Hyperlipidemia, unspecified; E78.00 Pure hypercholesterolemia, unspecified; E11.9 Type 2 diabetes mellitus without complications; M19.90 Unspecified osteoarthritis, unspecified site; E43 Unspecified severe protein-calorie malnutrition; Z79.899 Other long term (current) drug therapy; Z85.810 Personal history of malignant neoplasm of tongue; Z87.891 Personal history of nicotine dependence; Z95.1 Presence of aortocoronary bypass graft; Z95.810 Presence of automatic (implantable) cardiac defibrillator; Z95.5 Presence of coronary angioplasty implant and graft; Z90.49 Acquired absence of other specified parts of digestive tract
CPT/HCPCS: 36415; 83880; 85025; 96365; 96366; G0463; J1250; J7050; 96367

== ENCOUNTER → 2019-06-24 | Outpatient (CLI) | payer MEDICARE ==
[2019-06-24] VITALS (9 sets, daily range): BP systolic 119–175; BP diastolic 48–74
[~2019-06-24] MED LIST changes: -CYANOCOBALAMIN (B-12) 1000 MCG/1 ML VIAL IM ONE; -CYANOCOBALAMIN (B-12) 1000 MCG/1 ML VIAL ONE; -SODIUM CHLORIDE 0.9% 250 ML IV ONE
[2019-06-24 12:50] LABS: Basophils # (auto) 0.1 uL; Basophils % (auto) 1.5 % (0.0-2.0); Eosinophils # (auto) 0.3 uL; Eosinophils % (auto) 5.7 % (0.0-7.0); Hematocrit 27.6 % (41.0-53.0); Hemoglobin 9.2 g/dL (13.5-17.5); Lymphocytes # (auto) 0.8 uL; Lymphocytes % (auto) 16.2 % (10.0-50.0); Mean Corpuscular Hemoglobin 30.6 pg (28.0-32.0); Mean Corpuscular Hgb Conc. 33.5 g/dL (32.0-36.0); Mean Corpuscular Volume 91.3 fL (80.0-100.0); Monocytes # (auto) 0.4 uL; Monocytes % (auto) 9.1 % (0.0-12.0); Neutrophils # (auto) 3.2 uL; Neutrophils % (auto) 67.5 % (37.0-80.0); Nucleated Red Blood Cells % 0.2 %; Platelet Count (auto) 311 10^3/uL (140-450); Red Blood Cells 3.02 10^6/uL (4.5-5.90); Red Cell Distribution Width 14.3 % (11.8-14.3); White Blood Cell 4.8 10^3/uL (4.4-10.8)
[2019-06-24 13:32] LABS: Potassium 4.1 mmol/L (3.5-5.1)
== END | disposition home or self-care (01) ==
LOC: CHF HDHVI 08:35
PROVIDERS: ATTEND Internal Medicine Cardiovascular Disease
DX: I11.0 Hypertensive heart disease with heart failure (principal); I50.42 Chronic combined systolic (congestive) and diastolic (congestive) heart failure; I48.91 Unspecified atrial fibrillation; I25.10 Atherosclerotic heart disease of native coronary artery without angina pectoris; I27.21 Secondary pulmonary arterial hypertension; I25.2 Old myocardial infarction; I42.8 Other cardiomyopathies; J96.10 Chronic respiratory failure, unspecified whether with hypoxia or hypercapnia; J43.9 Emphysema, unspecified; D64.9 Anemia, unspecified; K21.9 Gastro-esophageal reflux disease without esophagitis; E78.00 Pure hypercholesterolemia, unspecified; E11.9 Type 2 diabetes mellitus without complications; M19.90 Unspecified osteoarthritis, unspecified site; Z85.810 Personal history of malignant neoplasm of tongue; Z79.01 Long term (current) use of anticoagulants; Z79.899 Other long term (current) drug therapy; Z87.891 Personal history of nicotine dependence; Z95.1 Presence of aortocoronary bypass graft; Z95.5 Presence of coronary angioplasty implant and graft; Z90.49 Acquired absence of other specified parts of digestive tract; Z95.810 Presence of automatic (implantable) cardiac defibrillator
CPT/HCPCS: 36415; 82565; 83880; 84132; 84520; 85025; 96365; 96366; G0463; J1250

== ENCOUNTER → 2019-06-28 | Outpatient (CLI) | payer MEDICARE ==
[2019-06-28] VITALS (10 sets, daily range): BP systolic 101–150; BP diastolic 40–63
--- NOTE | 2019-06-28 08:20 | NUR ---
IV insertion IV access obtained, via clean sterile technique by inserting 22 gauge catheter at LFA after 1 attempt(s). IV secured properly. No trauma to site. Patient tolerated procedure well.
--- NOTE | 2019-06-28 11:35 | NUR ---
IV removal IV DC'd with sterile technique, catheter fully intact. Pressure dressing applied to site. Patient tolerated procedure well. Discharged with aftercare instructions per MD. NOTE:
--- NOTE | 2019-06-28 11:40 | NUR ---
Discharge Instructions See e-MAR for any mediations given with this visit. Patient education given on disease process. Patient verbalized understanding. Previous labs reviewed. Patient discharged in stable condition with after care instructions and follow up appointment. MEDICATIONS DOBUTAMINE DRIP [id number]
== END | disposition home or self-care (01) ==
LOC: CHF HDHVI 08:14
PROVIDERS: ATTEND Internal Medicine Cardiovascular Disease
DX: I11.0 Hypertensive heart disease with heart failure (principal); I50.42 Chronic combined systolic (congestive) and diastolic (congestive) heart failure; I48.91 Unspecified atrial fibrillation; I25.10 Atherosclerotic heart disease of native coronary artery without angina pectoris; I27.21 Secondary pulmonary arterial hypertension; I25.2 Old myocardial infarction; I42.8 Other cardiomyopathies; J96.10 Chronic respiratory failure, unspecified whether with hypoxia or hypercapnia; J43.9 Emphysema, unspecified; K21.9 Gastro-esophageal reflux disease without esophagitis; E78.00 Pure hypercholesterolemia, unspecified; E11.9 Type 2 diabetes mellitus without complications; M19.90 Unspecified osteoarthritis, unspecified site; E46 Unspecified protein-calorie malnutrition; E78.5 Hyperlipidemia, unspecified; Z79.899 Other long term (current) drug therapy; Z85.810 Personal history of malignant neoplasm of tongue; Z87.891 Personal history of nicotine dependence; Z95.1 Presence of aortocoronary bypass graft; Z95.810 Presence of automatic (implantable) cardiac defibrillator; Z95.5 Presence of coronary angioplasty implant and graft; Z90.49 Acquired absence of other specified parts of digestive tract; Z79.01 Long term (current) use of anticoagulants
CPT/HCPCS: 93701; 96365; 96366; G0463; J1250

== ENCOUNTER → 2019-07-01 | Outpatient (CLI) | payer MEDICARE ==
[2019-07-01] VITALS (9 sets, daily range): BP systolic 102–159; BP diastolic 49–72
--- NOTE | 2019-07-01 08:30 | NUR ---
IV insertion IV access obtained, via clean sterile technique by inserting 22 gauge catheter at after attempt(s). IV secured properly. No trauma to site. Patient tolerated procedure well.
--- NOTE | 2019-07-01 08:30 | NUR ---
Clinic Provider Clinic Provider updated with pt status new orders received and carried out. Dobutamine gtt started at {5}mcg/kg/hr per MD order.
--- NOTE | 2019-07-01 11:51 | NUR ---
IV removal IV DC'd with sterile technique, catheter fully intact. Pressure dressing applied to site. Patient tolerated procedure well. Discharged with aftercare instructions per MD. NOTE: REMOVED BY CESAR LUNA
--- NOTE | 2019-07-01 11:52 | NUR ---
Discharge Instructions See e-MAR for any mediations given with this visit. Patient education given on disease process. Patient verbalized understanding. Previous labs reviewed. Patient discharged in stable condition with after care instructions and follow up appointment. MEDICATIONS DOBUTAMINE DRIP [id number]
[2019-07-01 11:56] LABS: Basophils # (auto) 0.1 uL; Basophils % (auto) 1.7 % (0.0-2.0); Eosinophils # (auto) 0.3 uL; Eosinophils % (auto) 6.6 % (0.0-7.0); Hematocrit 31.9 % (41.0-53.0); Hemoglobin 10.7 g/dL (13.5-17.5); Lymphocytes # (auto) 0.6 uL; Lymphocytes % (auto) 13.3 % (10.0-50.0); Mean Corpuscular Hemoglobin 30.2 pg (28.0-32.0); Mean Corpuscular Hgb Conc. 33.5 g/dL (32.0-36.0); Mean Corpuscular Volume 90.2 fL (80.0-100.0); Monocytes # (auto) 0.4 uL; Monocytes % (auto) 8.4 % (0.0-12.0); Neutrophils # (auto) 3.2 uL; Platelet Count (auto) 268 10^3/uL (140-450); Red Blood Cells 3.54 10^6/uL (4.5-5.90); Red Cell Distribution Width 14.3 % (11.8-14.3); White Blood Cell 4.6 10^3/uL (4.4-10.8)
[2019-07-01 12:12] LABS: Potassium 4.1 mmol/L (3.5-5.1)
[2019-07-01 12:20] LABS: Albumin 3.2 g/dL (3.4-5.0); BUN/Creatinine Ratio 17.6; Bilirubin, Total 0.5 mg/dL (0.2-1.0); Calcium 8.9 mg/dL (8.5-10.1); Total Protein 7.9 g/dL (6.4-8.2)
== END | disposition home or self-care (01) ==
LOC: CHF HDHVI 08:44
PROVIDERS: ATTEND Internal Medicine Cardiovascular Disease
DX: I11.0 Hypertensive heart disease with heart failure (principal); I50.42 Chronic combined systolic (congestive) and diastolic (congestive) heart failure; J43.9 Emphysema, unspecified; D64.9 Anemia, unspecified; I25.2 Old myocardial infarction; I25.10 Atherosclerotic heart disease of native coronary artery without angina pectoris; I48.91 Unspecified atrial fibrillation; I42.8 Other cardiomyopathies; I27.21 Secondary pulmonary arterial hypertension; J96.10 Chronic respiratory failure, unspecified whether with hypoxia or hypercapnia; K21.9 Gastro-esophageal reflux disease without esophagitis; E78.5 Hyperlipidemia, unspecified; E78.00 Pure hypercholesterolemia, unspecified; M19.90 Unspecified osteoarthritis, unspecified site; E11.9 Type 2 diabetes mellitus without complications; E43 Unspecified severe protein-calorie malnutrition; Z79.899 Other long term (current) drug therapy; Z85.810 Personal history of malignant neoplasm of tongue; Z87.891 Personal history of nicotine dependence; Z95.1 Presence of aortocoronary bypass graft; Z95.810 Presence of automatic (implantable) cardiac defibrillator; Z95.5 Presence of coronary angioplasty implant and graft; Z90.49 Acquired absence of other specified parts of digestive tract; Z79.01 Long term (current) use of anticoagulants
CPT/HCPCS: 36415; 80053; 83880; 85025; 96365; 96366; G0463; J1250

== ENCOUNTER → 2019-07-05 | Outpatient (CLI) | payer MEDICARE ==
[~2019-07-05] VITALS: Ht 30.5 cm; Wt 57.7 kg
[2019-07-05] VITALS (11 sets, daily range): BP systolic 119–150; BP diastolic 56–69
--- NOTE | 2019-07-05 08:20 | NUR ---
IV insertion IV access obtained BY SLOANE CULVER, via clean sterile technique by inserting [22] gauge catheter at [L FA] after [1] attempt(s). IV secured properly. No trauma to site. Patient tolerated procedure well.
--- NOTE | 2019-07-05 11:30 | NUR ---
IV removal IV DC'd BY ANTONELLA LUNA with sterile technique, catheter fully intact. Pressure dressing applied to site. Patient tolerated procedure well.
--- NOTE | 2019-07-05 11:35 | NUR ---
CHF CLINIC Discharge Instructions See e-MAR for any mediations given with this visit. Patient education given on disease process. Patient verbalized understanding. Previous labs reviewed. Patient discharged in stable condition with after care instructions and follow up appointment. NOTES DOBUTAMINE [id number] ADMIN BY TARYN CULVER
== END | disposition home or self-care (01) ==
LOC: CHF HDHVI 08:21
PROVIDERS: ATTEND Internal Medicine Cardiovascular Disease
DX: I11.0 Hypertensive heart disease with heart failure (principal); I50.42 Chronic combined systolic (congestive) and diastolic (congestive) heart failure; I48.91 Unspecified atrial fibrillation; I25.10 Atherosclerotic heart disease of native coronary artery without angina pectoris; I25.2 Old myocardial infarction; K21.9 Gastro-esophageal reflux disease without esophagitis; I42.8 Other cardiomyopathies; J96.10 Chronic respiratory failure, unspecified whether with hypoxia or hypercapnia; J43.9 Emphysema, unspecified; E78.5 Hyperlipidemia, unspecified; E78.00 Pure hypercholesterolemia, unspecified; M19.90 Unspecified osteoarthritis, unspecified site; E11.9 Type 2 diabetes mellitus without complications; E43 Unspecified severe protein-calorie malnutrition; Z79.899 Other long term (current) drug therapy; Z85.810 Personal history of malignant neoplasm of tongue; Z87.891 Personal history of nicotine dependence; Z95.5 Presence of coronary angioplasty implant and graft; Z95.810 Presence of automatic (implantable) cardiac defibrillator; Z90.49 Acquired absence of other specified parts of digestive tract; Z79.01 Long term (current) use of anticoagulants
CPT/HCPCS: 96365; 96366; G0463; J1250

== ENCOUNTER → 2019-07-08 | Outpatient (CLI) | payer MEDICARE ==
[2019-07-08] VITALS (11 sets, daily range): BP systolic 99–132; BP diastolic 43–94
[~2019-07-08] MED LIST changes: +CYANOCOBALAMIN (B-12) 1000 MCG/1 ML VIAL IM ONE; +CYANOCOBALAMIN (B-12) 1000 MCG/1 ML VIAL ONE
--- NOTE | 2019-07-08 08:20 | NUR ---
IV insertion IV access obtained BY MARLEN CULVER, via clean sterile technique by inserting [22] gauge catheter at [RIGHT UPPER ARM] after [1] attempt(s). IV secured properly. No trauma to site. Patient tolerated procedure well.
--- NOTE | 2019-07-08 11:28 | NUR ---
IV removal IV DC'd with sterile technique, catheter fully intact. Pressure dressing applied to site. Patient tolerated procedure well.
--- NOTE | 2019-07-08 11:30 | NUR ---
CHF CLINIC Discharge Instructions See e-MAR for any mediations given with this visit. Patient education given on disease process. Patient verbalized understanding. Previous labs reviewed. Patient discharged in stable condition with after care instructions and follow up appointment. [place]ES [place]AMINE IV [id number] ADMIN BY MARLEN CULVER VIT B12 IM LEFT DELTOID ADMIN BY TARYN CULVER
[2019-07-08 12:04] LABS: Basophils # (auto) 0.1 uL; Basophils % (auto) 1.9 % (0.0-2.0); Eosinophils # (auto) 0.3 uL; Eosinophils % (auto) 6.6 % (0.0-7.0); Hemoglobin 10.1 g/dL (13.5-17.5); Lymphocytes # (auto) 0.6 uL; Lymphocytes % (auto) 14.5 % (10.0-50.0); Mean Corpuscular Hemoglobin 30.2 pg (28.0-32.0); Mean Corpuscular Hgb Conc. 33.5 g/dL (32.0-36.0); Mean Corpuscular Volume 90.1 fL (80.0-100.0); Monocytes # (auto) 0.4 uL; Monocytes % (auto) 10.1 % (0.0-12.0); Neutrophils # (auto) 2.9 uL; Neutrophils % (auto) 66.9 % (37.0-80.0); Nucleated Red Blood Cells % 0.1 %; Platelet Count (auto) 275 10^3/uL (140-450); Potassium 4.1 mmol/L (3.5-5.1); Red Blood Cells 3.33 10^6/uL (4.5-5.90); White Blood Cell 4.3 10^3/uL (4.4-10.8)
== END | disposition home or self-care (01) ==
LOC: CHF HDHVI 08:10
PROVIDERS: ATTEND Internal Medicine Cardiovascular Disease
DX: I11.0 Hypertensive heart disease with heart failure (principal); I50.42 Chronic combined systolic (congestive) and diastolic (congestive) heart failure; R53.83 Other fatigue; I25.10 Atherosclerotic heart disease of native coronary artery without angina pectoris; J96.10 Chronic respiratory failure, unspecified whether with hypoxia or hypercapnia; K21.9 Gastro-esophageal reflux disease without esophagitis; E11.9 Type 2 diabetes mellitus without complications; I48.91 Unspecified atrial fibrillation; M19.90 Unspecified osteoarthritis, unspecified site; I27.21 Secondary pulmonary arterial hypertension; J44.9 Chronic obstructive pulmonary disease, unspecified; Z79.01 Long term (current) use of anticoagulants; Z85.810 Personal history of malignant neoplasm of tongue; Z87.891 Personal history of nicotine dependence; Z95.810 Presence of automatic (implantable) cardiac defibrillator; Z90.49 Acquired absence of other specified parts of digestive tract
CPT/HCPCS: 36415; 82565; 83880; 84132; 84520; 85025; 96365; 96366; 96372; G0463; J1250; J3420

== ENCOUNTER → 2019-07-12 | Outpatient (CLI) | payer MEDICARE ==
[~2019-07-12] MED LIST changes: -CYANOCOBALAMIN (B-12) 1000 MCG/1 ML VIAL IM ONE; -CYANOCOBALAMIN (B-12) 1000 MCG/1 ML VIAL ONE
--- NOTE | 2019-07-12 08:30 | NUR ---
IV insertion IV access obtained by Tammi CULVER, via clean sterile technique by inserting 22 gauge catheter at LFA after 2 attempt(s). IV secured properly. No trauma to site. Patient tolerated procedure well.
[2019-07-12 08:32] VITALS: BP 100/43
[2019-07-12 08:45] VITALS: BP 96/44
[2019-07-12 09:30] VITALS: BP 108/43
[2019-07-12 10:30] VITALS: BP 124/44
--- NOTE | 2019-07-12 12:10 | NUR ---
IV removal IV DC'd with sterile technique, catheter fully intact. Pressure dressing applied to site. Patient tolerated procedure well.
[2019-07-12 12:14] VITALS: BP 107/44
--- NOTE | 2019-07-12 12:14 | NUR ---
CHF CLINIC Discharge Instructions See e-MAR for any mediations given with this visit. Patient education given on disease process. Patient verbalized understanding. Previous labs reviewed. Patient discharged in stable condition with after care instructions and follow up appointment. NOTE DOBUTAMINE [id number] ADMIN BY ARIK CULVER.
== END | disposition home or self-care (01) ==
LOC: CHF HDHVI 08:18
PROVIDERS: ATTEND Internal Medicine Cardiovascular Disease
DX: I11.0 Hypertensive heart disease with heart failure (principal); I50.42 Chronic combined systolic (congestive) and diastolic (congestive) heart failure; I48.91 Unspecified atrial fibrillation; I25.10 Atherosclerotic heart disease of native coronary artery without angina pectoris; I27.21 Secondary pulmonary arterial hypertension; I25.2 Old myocardial infarction; I42.8 Other cardiomyopathies; R53.83 Other fatigue; R05 Cough; J43.9 Emphysema, unspecified; J96.10 Chronic respiratory failure, unspecified whether with hypoxia or hypercapnia; K21.9 Gastro-esophageal reflux disease without esophagitis; E11.9 Type 2 diabetes mellitus without complications; M19.90 Unspecified osteoarthritis, unspecified site; E78.5 Hyperlipidemia, unspecified; E78.00 Pure hypercholesterolemia, unspecified; E46 Unspecified protein-calorie malnutrition; Z79.01 Long term (current) use of anticoagulants; Z85.810 Personal history of malignant neoplasm of tongue; Z87.891 Personal history of nicotine dependence; Z95.810 Presence of automatic (implantable) cardiac defibrillator; Z79.899 Other long term (current) drug therapy; Z95.5 Presence of coronary angioplasty implant and graft; Z90.49 Acquired absence of other specified parts of digestive tract
CPT/HCPCS: 96365; 96366; G0463; J1250

== ENCOUNTER → 2019-07-15 | Outpatient (CLI) | payer MEDICARE ==
[2019-07-15] VITALS (7 sets, daily range): BP systolic 102–155; BP diastolic 43–67
[~2019-07-15] VITALS: Ht 30.5 cm; Wt 58.5 kg
--- NOTE | 2019-07-15 08:30 | NUR ---
CHF PT ARRIVED AT THE CHF CLINIC FOR WEEKLY TREATMENT AND THERAPY 0 DISTRESS VSS
--- NOTE | 2019-07-15 08:47 | NUR ---
IV insertion IV access obtained, via clean sterile technique by inserting 22 gauge catheter at after attempt(s). IV secured properly. No trauma to site. Patient tolerated procedure well.
--- NOTE | 2019-07-15 11:52 | NUR ---
Discharge Instructions See e-MAR for any mediations given with this visit. Patient education given on disease process. Patient verbalized understanding. Previous labs reviewed. Patient discharged in stable condition with after care instructions and follow up appointment. MEDICATIONS DOBUTAMINE 5MCG/KG/MIN IV 0850- Addendum: 07/15/19 at 1232 by MARLEN PLUMMER RN VA DISCHARGED AT 1200
--- NOTE | 2019-07-15 12:00 | NUR ---
IV removal IV DC'd with sterile technique, catheter fully intact. Pressure dressing applied to site. Patient tolerated procedure well. Discharged with aftercare instructions per MD. NOTE: Addendum: 07/15/19 at 1231 by MARLEN PLUMMER RN HI IV REMOVED AT 1155
[2019-07-15 12:45] LABS: Potassium 4.4 mmol/L (3.5-5.1)
== END | disposition home or self-care (01) ==
LOC: CHF HDHVI 08:33
PROVIDERS: ATTEND Internal Medicine Cardiovascular Disease
DX: I11.0 Hypertensive heart disease with heart failure (principal); I50.42 Chronic combined systolic (congestive) and diastolic (congestive) heart failure; J43.9 Emphysema, unspecified; I25.10 Atherosclerotic heart disease of native coronary artery without angina pectoris; I25.2 Old myocardial infarction; I42.8 Other cardiomyopathies; I48.91 Unspecified atrial fibrillation; I27.21 Secondary pulmonary arterial hypertension; J96.10 Chronic respiratory failure, unspecified whether with hypoxia or hypercapnia; K21.9 Gastro-esophageal reflux disease without esophagitis; E78.5 Hyperlipidemia, unspecified; E78.00 Pure hypercholesterolemia, unspecified; E11.9 Type 2 diabetes mellitus without complications; M19.90 Unspecified osteoarthritis, unspecified site; E43 Unspecified severe protein-calorie malnutrition; Z95.1 Presence of aortocoronary bypass graft; Z79.899 Other long term (current) drug therapy; Z85.810 Personal history of malignant neoplasm of tongue; Z87.891 Personal history of nicotine dependence; Z95.810 Presence of automatic (implantable) cardiac defibrillator; Z95.5 Presence of coronary angioplasty implant and graft; Z79.01 Long term (current) use of anticoagulants; Z90.49 Acquired absence of other specified parts of digestive tract
CPT/HCPCS: 36415; 82565; 83880; 84132; 84520; 96365; 96366; G0463; J1250

== ENCOUNTER → 2019-07-19 | Outpatient (CLI) | payer MEDICARE ==
[2019-07-19] VITALS (9 sets, daily range): BP systolic 92–137; BP diastolic 41–68
--- NOTE | 2019-07-19 08:05 | NUR ---
PT. TO CHF CLINIC FOR DOBUTAMINE INFUSION PER MD ORDER. PT. WITH SOB WITH EXERTION ONLY. ORDERS RECEIVED AND CARRIED OUT. SEE NSG ASSESS.
--- NOTE | 2019-07-19 08:07 | NUR ---
IV insertion IV access obtained, via clean sterile technique by inserting 22 gauge catheter at after attempt(s). IV secured properly. No trauma to site. Patient tolerated procedure well.
--- NOTE | 2019-07-19 08:10 | NUR ---
MEDS: DOBUTAMINE STARTED AT 5 MCG/KG/MIN. PER MD ORDER.
--- NOTE | 2019-07-19 11:12 | NUR ---
IV removal IV DC'd with sterile technique, catheter fully intact. Pressure dressing applied to site. Patient tolerated procedure well.
--- NOTE | 2019-07-19 11:15 | NUR ---
CHF CLINIC Discharge Instructions See e-MAR for any mediations given with this visit. Patient education given on disease process. Patient verbalized understanding. Previous labs reviewed. Patient discharged in stable condition with after care instructions and follow up appointment. NOTE DOBUTAMINE [id number] ADMIN BY SLOANE CULVER.
== END | disposition home or self-care (01) ==
LOC: CHF HDHVI 08:16
PROVIDERS: ATTEND Internal Medicine Cardiovascular Disease
DX: I11.0 Hypertensive heart disease with heart failure (principal); I50.42 Chronic combined systolic (congestive) and diastolic (congestive) heart failure; I25.10 Atherosclerotic heart disease of native coronary artery without angina pectoris; I42.8 Other cardiomyopathies; I48.91 Unspecified atrial fibrillation; I25.2 Old myocardial infarction; I27.21 Secondary pulmonary arterial hypertension; J43.9 Emphysema, unspecified; J96.10 Chronic respiratory failure, unspecified whether with hypoxia or hypercapnia; K21.9 Gastro-esophageal reflux disease without esophagitis; E78.5 Hyperlipidemia, unspecified; E78.00 Pure hypercholesterolemia, unspecified; E11.9 Type 2 diabetes mellitus without complications; M19.90 Unspecified osteoarthritis, unspecified site; E43 Unspecified severe protein-calorie malnutrition; Z79.899 Other long term (current) drug therapy; Z87.891 Personal history of nicotine dependence; Z95.1 Presence of aortocoronary bypass graft; Z95.5 Presence of coronary angioplasty implant and graft; Z90.49 Acquired absence of other specified parts of digestive tract; Z79.01 Long term (current) use of anticoagulants
CPT/HCPCS: 96365; 96366; G0463; J1250

== ENCOUNTER → 2019-07-22 | Outpatient (CLI) | payer MEDICARE ==
[2019-07-22] VITALS (8 sets, daily range): BP systolic 136–152; BP diastolic 49–75
[~2019-07-22] MED LIST changes: +CYANOCOBALAMIN (B-12) 1000 MCG/1 ML VIAL IM ONE; +CYANOCOBALAMIN (B-12) 1000 MCG/1 ML VIAL ONE
--- NOTE | 2019-07-22 08:25 | NUR ---
CHF PT ARRIVED TO THE CLINIC FOR WEEKLY DOBUTAMINE THERAPY 0 DISTRESS, VSS A/0 X 4
--- NOTE | 2019-07-22 08:30 | NUR ---
IV insertion IV access obtained, via clean sterile technique by inserting 22 gauge catheter at after attempt(s). IV secured properly. No trauma to site. Patient tolerated procedure well.
--- NOTE | 2019-07-22 11:36 | NUR ---
IV removal IV DC'd with sterile technique, catheter fully intact. Pressure dressing applied to site. Patient tolerated procedure well. Discharged with aftercare instructions per MD. NOTE:
--- NOTE | 2019-07-22 11:37 | NUR ---
Discharge Instructions See e-MAR for any mediations given with this visit. Patient education given on disease process. Patient verbalized understanding. Previous labs reviewed. Patient discharged in stable condition with after care instructions and follow up appointment. MEDICATIONS DOBUTAMINE DRIP [id number] VITAMIN B12 IM LEFT DELTOID [id number] EXP 01/06
[2019-07-22 12:09] LABS: Basophils # (auto) 0.1 uL; Basophils % (auto) 1.2 % (0.0-2.0); Eosinophils # (auto) 0.2 uL; Eosinophils % (auto) 2.5 % (0.0-7.0); Hematocrit 30.7 % (41.0-53.0); Hemoglobin 10.1 g/dL (13.5-17.5); Lymphocytes # (auto) 0.4 uL; Lymphocytes % (auto) 6.8 % (10.0-50.0); Mean Corpuscular Hemoglobin 29.9 pg (28.0-32.0); Mean Corpuscular Hgb Conc. 32.9 g/dL (32.0-36.0); Mean Corpuscular Volume 90.9 fL (80.0-100.0); Monocytes # (auto) 0.4 uL; Monocytes % (auto) 6.8 % (0.0-12.0); Neutrophils # (auto) 5.1 uL; Neutrophils % (auto) 82.7 % (37.0-80.0); Platelet Count (auto) 244 10^3/uL (140-450); Red Blood Cells 3.38 10^6/uL (4.5-5.90); Red Cell Distribution Width 14.3 % (11.8-14.3); White Blood Cell 6.1 10^3/uL (4.4-10.8)
== END | disposition home or self-care (01) ==
LOC: CHF HDHVI 08:14
PROVIDERS: ATTEND Internal Medicine Cardiovascular Disease
DX: I11.0 Hypertensive heart disease with heart failure (principal); I50.42 Chronic combined systolic (congestive) and diastolic (congestive) heart failure; I25.10 Atherosclerotic heart disease of native coronary artery without angina pectoris; J43.9 Emphysema, unspecified; I48.91 Unspecified atrial fibrillation; I42.8 Other cardiomyopathies; I25.2 Old myocardial infarction; R53.83 Other fatigue; D64.9 Anemia, unspecified; J96.10 Chronic respiratory failure, unspecified whether with hypoxia or hypercapnia; K21.9 Gastro-esophageal reflux disease without esophagitis; E78.5 Hyperlipidemia, unspecified; E78.00 Pure hypercholesterolemia, unspecified; E43 Unspecified severe protein-calorie malnutrition; Z95.810 Presence of automatic (implantable) cardiac defibrillator; Z79.01 Long term (current) use of anticoagulants; Z79.899 Other long term (current) drug therapy; Z87.891 Personal history of nicotine dependence; Z95.5 Presence of coronary angioplasty implant and graft; Z85.810 Personal history of malignant neoplasm of tongue; Z90.49 Acquired absence of other specified parts of digestive tract
CPT/HCPCS: 36415; 82565; 83880; 84132; 84520; 85025; 96365; 96366; 96372; G0463; J1250; J3420

== ENCOUNTER → 2019-07-26 | Outpatient (CLI) | payer MEDICARE ==
[2019-07-26] VITALS (10 sets, daily range): BP systolic 123–167; BP diastolic 52–73
[~2019-07-26] MED LIST changes: -CYANOCOBALAMIN (B-12) 1000 MCG/1 ML VIAL IM ONE; -CYANOCOBALAMIN (B-12) 1000 MCG/1 ML VIAL ONE
--- NOTE | 2019-07-26 08:15 | NUR ---
IV insertion IV access obtained, via clean sterile technique by inserting 22 gauge catheter at LFA after 1 attempt(s). IV secured properly. No trauma to site. Patient tolerated procedure well.
--- NOTE | 2019-07-26 11:40 | NUR ---
IV removal IV DC'd with sterile technique, catheter fully intact. Pressure dressing applied to site. Patient tolerated procedure well.
--- NOTE | 2019-07-26 11:45 | NUR ---
CHF CLINIC Discharge Instructions See e-MAR for any mediations given with this visit. Patient education given on disease process. Patient verbalized understanding. Previous labs reviewed. Patient discharged in stable condition with after care instructions and follow up appointment. NOTE DOBUTAMINE [id number] ADMIN BY ARIK CULVER
== END | disposition home or self-care (01) ==
LOC: CHF HDHVI 08:04
PROVIDERS: ATTEND Internal Medicine Cardiovascular Disease
DX: I11.0 Hypertensive heart disease with heart failure (principal); I50.42 Chronic combined systolic (congestive) and diastolic (congestive) heart failure; I25.10 Atherosclerotic heart disease of native coronary artery without angina pectoris; I27.21 Secondary pulmonary arterial hypertension; J96.10 Chronic respiratory failure, unspecified whether with hypoxia or hypercapnia; I48.91 Unspecified atrial fibrillation; I25.2 Old myocardial infarction; J43.9 Emphysema, unspecified; K21.9 Gastro-esophageal reflux disease without esophagitis; E78.5 Hyperlipidemia, unspecified; E78.00 Pure hypercholesterolemia, unspecified; E43 Unspecified severe protein-calorie malnutrition; E11.9 Type 2 diabetes mellitus without complications; M19.90 Unspecified osteoarthritis, unspecified site; Z79.899 Other long term (current) drug therapy; Z90.49 Acquired absence of other specified parts of digestive tract; Z85.810 Personal history of malignant neoplasm of tongue; Z87.891 Personal history of nicotine dependence; Z95.810 Presence of automatic (implantable) cardiac defibrillator; Z95.5 Presence of coronary angioplasty implant and graft; Z79.01 Long term (current) use of anticoagulants
CPT/HCPCS: 96365; 96366; G0463; J1250

== ENCOUNTER → 2019-07-29 | Outpatient (CLI) | payer MEDICARE ==
[2019-07-29] VITALS (7 sets, daily range): BP systolic 115–161; BP diastolic 52–80
--- NOTE | 2019-07-29 08:24 | NUR ---
IV insertion IV access obtained by Sandoval CULVER, via clean sterile technique by inserting RFA gauge catheter at 22 after 1 attempt(s). IV secured properly. No trauma to site. Patient tolerated procedure well.
--- NOTE | 2019-07-29 12:10 | NUR ---
IV removal IV DC'd with sterile technique, catheter fully intact. Pressure dressing applied to site. Patient tolerated procedure well.
--- NOTE | 2019-07-29 12:15 | NUR ---
CHF CLINIC Discharge Instructions See e-MAR for any mediations given with this visit. Patient education given on disease process. Patient verbalized understanding. Previous labs reviewed. Patient discharged in stable condition with after care instructions and follow up appointment ON MONDAY. NOTE DOBUTAMINE [id number] ADMIN BY SLOANE CULVER.
== END | disposition home or self-care (01) ==
LOC: CHF HDHVI 08:23
PROVIDERS: ATTEND Internal Medicine Cardiovascular Disease
DX: I11.0 Hypertensive heart disease with heart failure (principal); I50.42 Chronic combined systolic (congestive) and diastolic (congestive) heart failure; R53.83 Other fatigue; I25.10 Atherosclerotic heart disease of native coronary artery without angina pectoris; I48.91 Unspecified atrial fibrillation; I42.8 Other cardiomyopathies; I27.21 Secondary pulmonary arterial hypertension; I25.2 Old myocardial infarction; J96.10 Chronic respiratory failure, unspecified whether with hypoxia or hypercapnia; J43.9 Emphysema, unspecified; K21.9 Gastro-esophageal reflux disease without esophagitis; E78.5 Hyperlipidemia, unspecified; E78.00 Pure hypercholesterolemia, unspecified; E11.9 Type 2 diabetes mellitus without complications; M19.90 Unspecified osteoarthritis, unspecified site; E43 Unspecified severe protein-calorie malnutrition; Z95.1 Presence of aortocoronary bypass graft; Z85.810 Personal history of malignant neoplasm of tongue; Z87.891 Personal history of nicotine dependence; Z95.810 Presence of automatic (implantable) cardiac defibrillator; Z95.5 Presence of coronary angioplasty implant and graft; Z79.01 Long term (current) use of anticoagulants; Z79.899 Other long term (current) drug therapy; Z90.49 Acquired absence of other specified parts of digestive tract
CPT/HCPCS: 96365; 96366; G0463; J1250

== ENCOUNTER → 2019-08-02 | Outpatient (CLI) | payer MEDICARE ==
[2019-08-02] VITALS (8 sets, daily range): BP systolic 128–146; BP diastolic 45–61
--- NOTE | 2019-08-02 08:10 | NUR ---
IV insertion IV access obtained, via clean sterile technique by inserting 22 gauge catheter at RFA after 1 attempt(s). IV secured properly. No trauma to site. Patient tolerated procedure well.
--- NOTE | 2019-08-02 11:23 | NUR ---
IV removal IV DC'd with sterile technique, catheter fully intact. Pressure dressing applied to site. Patient tolerated procedure well.
--- NOTE | 2019-08-02 11:30 | NUR ---
CHF CLINIC Discharge Instructions See e-MAR for any mediations given with this visit. Patient education given on disease process. Patient verbalized understanding. Previous labs reviewed. Patient discharged in stable condition with after care instructions and follow up appointment. NOTE DOBUTAMINE [id number] ADMIN BY ARIK CULVER. LABS DRAWN BY ARIK CULVER.
[2019-08-02 12:17] LABS: Basophils # (auto) 0.1 uL; Basophils % (auto) 0.9 % (0.0-2.0); Eosinophils # (auto) 0.3 uL; Eosinophils % (auto) 3.9 % (0.0-7.0); Hematocrit 31.6 % (41.0-53.0); Hemoglobin 10.6 g/dL (13.5-17.5); Lymphocytes # (auto) 0.5 uL; Lymphocytes % (auto) 6.8 % (10.0-50.0); Mean Corpuscular Hemoglobin 30.1 pg (28.0-32.0); Mean Corpuscular Hgb Conc. 33.7 g/dL (32.0-36.0); Mean Corpuscular Volume 89.4 fL (80.0-100.0); Monocytes # (auto) 0.4 uL; Monocytes % (auto) 5.6 % (0.0-12.0); Neutrophils # (auto) 5.9 uL; Neutrophils % (auto) 82.8 % (37.0-80.0); Platelet Count (auto) 301 10^3/uL (140-450); Red Blood Cells 3.53 10^6/uL (4.5-5.90); Red Cell Distribution Width 14.6 % (11.8-14.3); White Blood Cell 7.1 10^3/uL (4.4-10.8)
[2019-08-02 12:34] LABS: Potassium 3.9 mmol/L (3.5-5.1)
[2019-08-02 12:41] LABS: BUN/Creatinine Ratio 19.4; Calcium 9.3 mg/dL (8.5-10.1); Magnesium 2.4 mg/dL (1.6-2.6)
== END | disposition home or self-care (01) ==
LOC: CHF HDHVI 08:23
PROVIDERS: ATTEND Internal Medicine Cardiovascular Disease
DX: I11.0 Hypertensive heart disease with heart failure (principal); I50.42 Chronic combined systolic (congestive) and diastolic (congestive) heart failure; I25.10 Atherosclerotic heart disease of native coronary artery without angina pectoris; I48.91 Unspecified atrial fibrillation; I25.2 Old myocardial infarction; I42.8 Other cardiomyopathies; I27.21 Secondary pulmonary arterial hypertension; J96.10 Chronic respiratory failure, unspecified whether with hypoxia or hypercapnia; J43.9 Emphysema, unspecified; K21.9 Gastro-esophageal reflux disease without esophagitis; E78.5 Hyperlipidemia, unspecified; E78.00 Pure hypercholesterolemia, unspecified; E11.9 Type 2 diabetes mellitus without complications; M19.90 Unspecified osteoarthritis, unspecified site; E43 Unspecified severe protein-calorie malnutrition; Z85.810 Personal history of malignant neoplasm of tongue; Z87.891 Personal history of nicotine dependence; Z95.1 Presence of aortocoronary bypass graft; Z95.810 Presence of automatic (implantable) cardiac defibrillator; Z95.5 Presence of coronary angioplasty implant and graft; Z79.899 Other long term (current) drug therapy; Z90.49 Acquired absence of other specified parts of digestive tract
CPT/HCPCS: 36415; 80048; 83735; 83880; 85025; 96365; 96366; G0463; J1250

== ENCOUNTER → 2019-08-05 | Outpatient (CLI) | payer MEDICARE ==
[2019-08-05] VITALS (7 sets, daily range): BP systolic 103–168; BP diastolic 45–76
--- NOTE | 2019-08-05 08:20 | NUR ---
IV insertion IV access obtained, via clean sterile technique by inserting 22 gauge catheter at after attempt(s). IV secured properly. No trauma to site. Patient tolerated procedure well. NOTE INSERTED BY MITCH CULVER
--- NOTE | 2019-08-05 11:43 | NUR ---
IV removal IV DC'd with sterile technique, catheter fully intact. Pressure dressing applied to site. Patient tolerated procedure well. Discharged with aftercare instructions per MD. NOTE: REMOVED SHERIDAN GEE RN
--- NOTE | 2019-08-05 11:50 | NUR ---
Discharge Instructions See e-MAR for any mediations given with this visit. Patient education given on disease process. Patient verbalized understanding. Previous labs reviewed. Patient discharged in stable condition with after care instructions and follow up appointment. NOTE DOBUTAMINE DRIP [id number] ADMIN BY ARIK CULVER
== END | disposition home or self-care (01) ==
LOC: CHF HDHVI 08:25
PROVIDERS: ATTEND Internal Medicine Cardiovascular Disease
DX: I11.0 Hypertensive heart disease with heart failure (principal); J44.9 Chronic obstructive pulmonary disease, unspecified; R53.83 Other fatigue; I25.10 Atherosclerotic heart disease of native coronary artery without angina pectoris; I50.42 Chronic combined systolic (congestive) and diastolic (congestive) heart failure; J96.10 Chronic respiratory failure, unspecified whether with hypoxia or hypercapnia; E78.5 Hyperlipidemia, unspecified; I25.2 Old myocardial infarction; E11.9 Type 2 diabetes mellitus without complications; K21.9 Gastro-esophageal reflux disease without esophagitis; M19.90 Unspecified osteoarthritis, unspecified site; Z90.49 Acquired absence of other specified parts of digestive tract; Z79.899 Other long term (current) drug therapy; Z85.810 Personal history of malignant neoplasm of tongue; Z95.1 Presence of aortocoronary bypass graft; Z95.810 Presence of automatic (implantable) cardiac defibrillator; Z87.891 Personal history of nicotine dependence; Z79.01 Long term (current) use of anticoagulants
CPT/HCPCS: 96365; 96366; G0463; J1250

== ENCOUNTER → 2019-08-09 | Outpatient (CLI) | payer MEDICARE ==
[~2019-08-09] VITALS: Ht 165.1 cm; Wt 57.7 kg
[2019-08-09] VITALS (9 sets, daily range): BP systolic 90–132; BP diastolic 41–62
[~2019-08-09] MED LIST changes: +POTASSIUM EFFERVESENT TAB 25 MEQ ONE
--- NOTE | 2019-08-09 08:00 | NUR ---
CHF PT ARRIVED TO THE CHF CLINIC FOR WEEKLY DOBUTAMINE TREATMENT WITH AN INCREASED ENERGY LEVEL SINCE LEST VISIT. A/O X4 VSS SEE NURSING ASSESSMENT FOR FURTHER DETAILS. PT TOLERATING CURRENT MEDICATION THERAPY, CURRENT ENTRESTO BID. WT DOWN 1 POUND. 0 DISTRESS.
--- NOTE | 2019-08-09 08:15 | NUR ---
IV insertion IV access obtained, via clean sterile technique by inserting 22 gauge catheter at LFA after 1 attempt(s). IV secured properly. No trauma to site. Patient tolerated procedure well. NOTE IV INSERTED BY MITCH CULVER
--- NOTE | 2019-08-09 08:32 | NUR ---
DOBUTAMINE DRIP STARTED @5 MCG/KG/MIN NON TITRATABLE
--- NOTE | 2019-08-09 09:58 | NUR ---
PT TOLERATING DOBUTAMINE DRIP VSS
--- NOTE | 2019-08-09 11:45 | NUR ---
Discharge Instructions See e-MAR for any mediations given with this visit. Patient education given on disease process. Patient verbalized understanding. Previous labs reviewed. Patient discharged in stable condition with after care instructions and follow up appointment. NOTE DOBUTAMINE [id number]
--- NOTE | 2019-08-09 11:49 | NUR ---
IV removal IV DC'd with sterile technique, catheter fully intact. Pressure dressing applied to site. Patient tolerated procedure well. Discharged with aftercare instructions per MD. NOTE: REMOVED BY MITCH CULVER Addendum: 08/09/19 at 1154 by MITCH MCCRACKEN RN RN ND IV REMOVED AT 1037
[2019-08-09 12:02] LABS: Basophils # (auto) 0.1 uL; Basophils % (auto) 1.2 % (0.0-2.0); Eosinophils # (auto) 0.2 uL; Hematocrit 29.3 % (41.0-53.0); Hemoglobin 9.6 g/dL (13.5-17.5); Lymphocytes # (auto) 0.7 uL; Lymphocytes % (auto) 13.6 % (10.0-50.0); Mean Corpuscular Hemoglobin 29.2 pg (28.0-32.0); Mean Corpuscular Hgb Conc. 32.7 g/dL (32.0-36.0); Mean Corpuscular Volume 89.4 fL (80.0-100.0); Monocytes # (auto) 0.4 uL; Monocytes % (auto) 7.8 % (0.0-12.0); Neutrophils # (auto) 3.9 uL; Neutrophils % (auto) 74.4 % (37.0-80.0); Platelet Count (auto) 268 10^3/uL (140-450); Red Blood Cells 3.28 10^6/uL (4.5-5.90); Red Cell Distribution Width 14.8 % (11.8-14.3); White Blood Cell 5.2 10^3/uL (4.4-10.8)
[2019-08-09 12:16] LABS: Potassium 4.1 mmol/L (3.5-5.1)
== END | disposition home or self-care (01) ==
LOC: CHF HDHVI 08:19
PROVIDERS: ATTEND Internal Medicine Cardiovascular Disease
DX: I11.0 Hypertensive heart disease with heart failure (principal); I50.42 Chronic combined systolic (congestive) and diastolic (congestive) heart failure; J44.9 Chronic obstructive pulmonary disease, unspecified; R53.83 Other fatigue; I25.10 Atherosclerotic heart disease of native coronary artery without angina pectoris; I25.2 Old myocardial infarction; I27.21 Secondary pulmonary arterial hypertension; I42.8 Other cardiomyopathies; K21.9 Gastro-esophageal reflux disease without esophagitis; J96.10 Chronic respiratory failure, unspecified whether with hypoxia or hypercapnia; E78.5 Hyperlipidemia, unspecified; E11.9 Type 2 diabetes mellitus without complications; M19.90 Unspecified osteoarthritis, unspecified site; E78.00 Pure hypercholesterolemia, unspecified; E43 Unspecified severe protein-calorie malnutrition; Z95.5 Presence of coronary angioplasty implant and graft; Z79.899 Other long term (current) drug therapy; Z85.810 Personal history of malignant neoplasm of tongue; Z87.891 Personal history of nicotine dependence; Z95.1 Presence of aortocoronary bypass graft; Z95.810 Presence of automatic (implantable) cardiac defibrillator; Z79.01 Long term (current) use of anticoagulants; Z90.49 Acquired absence of other specified parts of digestive tract
CPT/HCPCS: 36415; 82565; 83880; 84132; 84520; 85025; 96365; 96366; G0463; J1250; J1642

== ENCOUNTER → 2019-08-12 | Outpatient (CLI) | payer MEDICARE ==
[~2019-08-12] VITALS: Ht 30.5 cm; Wt 58.3 kg
[2019-08-12] VITALS (8 sets, daily range): BP systolic 122–158; BP diastolic 54–70
[~2019-08-12] MED LIST changes: +CYANOCOBALAMIN (B-12) 1000 MCG/1 ML VIAL IM ONE; +CYANOCOBALAMIN (B-12) 1000 MCG/1 ML VIAL ONE; -POTASSIUM EFFERVESENT TAB 25 MEQ ONE
--- NOTE | 2019-08-12 08:08 | NUR ---
CHF PT ARRIVED TO THE CHF CLINIC FOR WEEKLY DOBUTAMINE INFUSION. A/O X4, VSS. PT VERBALIZED HE HAD A GOOD WEEKEND, AND HAS HAD AN INCREASE IN INCREASE IN ENERGY SINCE LAST VISIT. 2LB WT GAIN SINCE LAST VISIT
--- NOTE | 2019-08-12 08:11 | NUR ---
IV insertion IV access obtained, via clean sterile technique by inserting 22 gauge catheter at RFA after 2 attempt(s). IV secured properly. No trauma to site. Patient tolerated procedure well. 1 UNSUCCESSFUL ATTEMPT BY MITCH CULVER 1 SUCCESSFUL ATTEMPT BY SLOANE CULVER
--- NOTE | 2019-08-12 08:14 | NUR ---
DOBUTAMINE DRIP STARTED VSS WILL CONTINUE TO MONITOR
--- NOTE | 2019-08-12 09:14 | NUR ---
PT TOLERATING DOBUTAMINE DRIP, IV SITE BEGIN, VSS, WILL CONTINUE TO MONITOR
--- NOTE | 2019-08-12 11:17 | NUR ---
IV removal IV DC'd with sterile technique, catheter fully intact. Pressure dressing applied to site. Patient tolerated procedure well. Discharged with aftercare instructions per MD. NOTE: REMOVED BY MARLEN CULVER
--- NOTE | 2019-08-12 11:24 | NUR ---
Discharge Instructions See e-MAR for any mediations given with this visit. Patient education given on disease process. Patient verbalized understanding. Previous labs reviewed. Patient discharged in stable condition with after care instructions and follow up appointment. NOTE DOBUTAMINE DRIP [id number] VIT B12 IM L DELTOID BY MITCH CULVER
== END | disposition home or self-care (01) ==
LOC: CHF HDHVI 08:07
PROVIDERS: ATTEND Internal Medicine Cardiovascular Disease
DX: I11.0 Hypertensive heart disease with heart failure (principal); I50.42 Chronic combined systolic (congestive) and diastolic (congestive) heart failure; R53.83 Other fatigue; I25.10 Atherosclerotic heart disease of native coronary artery without angina pectoris; I48.91 Unspecified atrial fibrillation; I42.8 Other cardiomyopathies; I25.2 Old myocardial infarction; I27.21 Secondary pulmonary arterial hypertension; J96.10 Chronic respiratory failure, unspecified whether with hypoxia or hypercapnia; J43.9 Emphysema, unspecified; K21.9 Gastro-esophageal reflux disease without esophagitis; E78.5 Hyperlipidemia, unspecified; E78.00 Pure hypercholesterolemia, unspecified; M19.90 Unspecified osteoarthritis, unspecified site; E43 Unspecified severe protein-calorie malnutrition; Z79.899 Other long term (current) drug therapy; Z85.810 Personal history of malignant neoplasm of tongue; Z87.891 Personal history of nicotine dependence; Z95.1 Presence of aortocoronary bypass graft; Z95.810 Presence of automatic (implantable) cardiac defibrillator; Z95.5 Presence of coronary angioplasty implant and graft; Z90.49 Acquired absence of other specified parts of digestive tract; Z79.01 Long term (current) use of anticoagulants
CPT/HCPCS: 96365; 96366; 96372; G0463; J1250; J3420

== ENCOUNTER → 2019-08-16 | Outpatient (CLI) | payer MEDICARE ==
[2019-08-16] VITALS (10 sets, daily range): BP systolic 123–157; BP diastolic 45–91
[~2019-08-16] MED LIST changes: -CYANOCOBALAMIN (B-12) 1000 MCG/1 ML VIAL IM ONE; -CYANOCOBALAMIN (B-12) 1000 MCG/1 ML VIAL ONE
[2019-08-16 11:59] LABS: Basophils # (auto) 0.1 uL; Basophils % (auto) 1.3 % (0.0-2.0); Eosinophils # (auto) 0.3 uL; Eosinophils % (auto) 4.7 % (0.0-7.0); Hematocrit 32.5 % (41.0-53.0); Hemoglobin 11.1 g/dL (13.5-17.5); Lymphocytes # (auto) 0.6 uL; Lymphocytes % (auto) 11.3 % (10.0-50.0); Mean Corpuscular Hemoglobin 30.6 pg (28.0-32.0); Mean Corpuscular Hgb Conc. 34.2 g/dL (32.0-36.0); Mean Corpuscular Volume 89.5 fL (80.0-100.0); Monocytes # (auto) 0.4 uL; Monocytes % (auto) 8.1 % (0.0-12.0); Neutrophils # (auto) 4.1 uL; Neutrophils % (auto) 74.6 % (37.0-80.0); Nucleated Red Blood Cells % 0.1 %; Platelet Count (auto) 324 10^3/uL (140-450); Red Blood Cells 3.63 10^6/uL (4.5-5.90); Red Cell Distribution Width 14.9 % (11.8-14.3); White Blood Cell 5.5 10^3/uL (4.4-10.8)
== END | disposition home or self-care (01) ==
LOC: CHF HDHVI 08:12
PROVIDERS: ATTEND Internal Medicine Cardiovascular Disease
DX: I11.0 Hypertensive heart disease with heart failure (principal); I50.42 Chronic combined systolic (congestive) and diastolic (congestive) heart failure; I25.10 Atherosclerotic heart disease of native coronary artery without angina pectoris; I42.8 Other cardiomyopathies; I48.91 Unspecified atrial fibrillation; I25.2 Old myocardial infarction; J96.10 Chronic respiratory failure, unspecified whether with hypoxia or hypercapnia; J43.9 Emphysema, unspecified; E78.00 Pure hypercholesterolemia, unspecified; G89.29 Other chronic pain; E11.9 Type 2 diabetes mellitus without complications; E43 Unspecified severe protein-calorie malnutrition; M19.90 Unspecified osteoarthritis, unspecified site; Z79.899 Other long term (current) drug therapy; Z87.891 Personal history of nicotine dependence; Z90.49 Acquired absence of other specified parts of digestive tract; Z95.1 Presence of aortocoronary bypass graft
CPT/HCPCS: 36415; 83036; 83880; 85025; 93701; 96365; 96366; G0463; J1250

== ENCOUNTER → 2019-08-19 | Outpatient (CLI) | payer MEDICARE ==
[2019-08-19] VITALS (8 sets, daily range): BP systolic 108–135; BP diastolic 44–63
[~2019-08-19] VITALS: Ht 30.5 cm; Wt 58.3 kg
== END | disposition home or self-care (01) ==
LOC: CHF HDHVI 08:23
PROVIDERS: ATTEND Internal Medicine Cardiovascular Disease
DX: I11.0 Hypertensive heart disease with heart failure (principal); I50.42 Chronic combined systolic (congestive) and diastolic (congestive) heart failure; R53.83 Other fatigue; I25.10 Atherosclerotic heart disease of native coronary artery without angina pectoris; I27.21 Secondary pulmonary arterial hypertension; I48.91 Unspecified atrial fibrillation; I25.2 Old myocardial infarction; I42.8 Other cardiomyopathies; J96.10 Chronic respiratory failure, unspecified whether with hypoxia or hypercapnia; J44.9 Chronic obstructive pulmonary disease, unspecified; K21.9 Gastro-esophageal reflux disease without esophagitis; G89.29 Other chronic pain; E43 Unspecified severe protein-calorie malnutrition; E78.5 Hyperlipidemia, unspecified; E78.00 Pure hypercholesterolemia, unspecified; M19.90 Unspecified osteoarthritis, unspecified site; Z79.01 Long term (current) use of anticoagulants; Z85.810 Personal history of malignant neoplasm of tongue; Z95.810 Presence of automatic (implantable) cardiac defibrillator; Z87.891 Personal history of nicotine dependence; Z95.1 Presence of aortocoronary bypass graft; Z95.5 Presence of coronary angioplasty implant and graft; Z90.49 Acquired absence of other specified parts of digestive tract
CPT/HCPCS: 96365; 96366; G0463; J1250

== ENCOUNTER → 2019-08-23 | Outpatient (CLI) | payer MEDICARE ==
[~2019-08-23] VITALS: Ht 165.1 cm; Wt 57.5 kg
--- NOTE | 2019-08-23 08:15 | NUR ---
Patient in clinic for scheduled visit, AAOx4, denies pain, vitals wnl.
--- NOTE | 2019-08-23 08:25 | NUR ---
IV insertion IV access obtained by Loan CULVER, via clean sterile technique by inserting 22 gauge catheter at lfa after 1 attempt(s). IV secured properly. No trauma to site. Patient tolerated procedure well.
[2019-08-23 08:30] VITALS: BP 109/52
[2019-08-23 08:45] VITALS: BP 115/50
[2019-08-23 09:00] VITALS: BP 101/50
[2019-08-23 09:15] VITALS: BP 127/43
--- NOTE | 2019-08-23 11:32 | NUR ---
IV removal IV DC'd with sterile technique, catheter fully intact. Pressure dressing applied to site. Patient tolerated procedure well.
[2019-08-23 11:34] VITALS: BP 154/57
--- NOTE | 2019-08-23 11:34 | NUR ---
CHF Clinic Discharge Instructions See e-MAR for any mediations given with this visit. Patient education given on disease process. Patient verbalized understanding. Previous labs reviewed. Patient discharged in stable condition with after care instructions and follow up appointment on Monday. Note Dobutamine [id number] admin by Loan CULVER
[2019-08-23 11:50] LABS: Basophils # (auto) 0.1 10 ^3/uL (0-0.2); Basophils % (auto) 1.2 % (0.0-2.0); Eosinophils # (auto) 0.3 10 ^3/uL (0-0.8); Hematocrit 28.9 % (41.0-53.0); Hemoglobin 9.7 g/dL (13.5-17.5); Lymphocytes # (auto) 0.5 10 ^3/uL (0.4-5.4); Lymphocytes % (auto) 10.8 % (10.0-50.0); Mean Corpuscular Hemoglobin 29.9 pg (28.0-32.0); Mean Corpuscular Hgb Conc. 33.5 g/dL (32.0-36.0); Mean Corpuscular Volume 89.3 fL (80.0-100.0); Monocytes # (auto) 0.3 10 ^3/uL (0-1.3); Monocytes % (auto) 7.3 % (0.0-12.0); Neutrophils # (auto) 3.3 10 ^3/uL (1.6-8.6); Neutrophils % (auto) 74.7 % (37.0-80.0); Nucleated Red Blood Cells % 0.1 %; Platelet Count (auto) 241 10^3/uL (140-450); Red Blood Cells 3.24 10^6/uL (4.5-5.90); Red Cell Distribution Width 14.8 % (11.8-14.3); White Blood Cell 4.4 10^3/uL (4.4-10.8)
[2019-08-23 12:01] LABS: Albumin 2.9 g/dL (3.4-5.0); Calcium 8.6 mg/dL (8.5-10.1); Magnesium 2.7 mg/dL (1.6-2.6); Potassium 4.3 mmol/L (3.5-5.1)
[2019-08-23 12:04] LABS: BUN/Creatinine Ratio 22.5; Bilirubin, Total 0.7 mg/dL (0.2-1.0); Total Protein 7.4 g/dL (6.4-8.2)
== END | disposition home or self-care (01) ==
LOC: CHF HDHVI 08:17
PROVIDERS: ATTEND Internal Medicine Cardiovascular Disease
DX: I11.0 Hypertensive heart disease with heart failure (principal); I50.42 Chronic combined systolic (congestive) and diastolic (congestive) heart failure; I25.10 Atherosclerotic heart disease of native coronary artery without angina pectoris; I25.2 Old myocardial infarction; I48.91 Unspecified atrial fibrillation; J43.9 Emphysema, unspecified; R53.83 Other fatigue; J96.10 Chronic respiratory failure, unspecified whether with hypoxia or hypercapnia; K21.9 Gastro-esophageal reflux disease without esophagitis; E78.5 Hyperlipidemia, unspecified; G89.29 Other chronic pain; E78.00 Pure hypercholesterolemia, unspecified; D64.9 Anemia, unspecified; E43 Unspecified severe protein-calorie malnutrition; E11.9 Type 2 diabetes mellitus without complications; Z79.01 Long term (current) use of anticoagulants; Z85.810 Personal history of malignant neoplasm of tongue; Z87.891 Personal history of nicotine dependence; Z95.1 Presence of aortocoronary bypass graft; Z95.810 Presence of automatic (implantable) cardiac defibrillator; Z95.5 Presence of coronary angioplasty implant and graft; Z90.49 Acquired absence of other specified parts of digestive tract; Z79.899 Other long term (current) drug therapy
CPT/HCPCS: 36415; 80053; 83735; 83880; 85025; 96365; 96366; G0463; J1250

== ENCOUNTER → 2019-08-26 | Outpatient (CLI) | payer MEDICARE ==
[~2019-08-26] VITALS: Ht 30.5 cm; Wt 57.7 kg
[2019-08-26] VITALS (8 sets, daily range): BP systolic 100–150; BP diastolic 37–58
--- NOTE | 2019-08-26 08:10 | NUR ---
CHF PT ARRIVED TO THE CHF CLINIC FOR WEEKLY DOBUTAMINE TREATMENT. A/O X4 VSS.
--- NOTE | 2019-08-26 08:20 | NUR ---
IV insertion IV access obtained, via clean sterile technique by inserting 22 gauge catheter at RFA after 1 attempt(s). IV secured properly. No trauma to site. Patient tolerated procedure well. NOTE INSERTED BY SLOANE CULVER
--- NOTE | 2019-08-26 08:26 | NUR ---
PT STARTED ON DOBUTAMINE DRIP 5 MCG/KG/MIN, VSS
--- NOTE | 2019-08-26 09:34 | NUR ---
PT TOLERATING DOBUTAMINE DRIP, VSS, IV SITE BENIGN
--- NOTE | 2019-08-26 11:29 | NUR ---
IV removal IV DC'd with sterile technique, catheter fully intact. Pressure dressing applied to site. Patient tolerated procedure well. Discharged with aftercare instructions per MD. NOTE: REMOVED BY MITCH CULVER
--- NOTE | 2019-08-26 11:33 | NUR ---
Discharge Instructions See e-MAR for any mediations given with this visit. Patient education given on disease process. Patient verbalized understanding. Previous labs reviewed. Patient discharged in stable condition with after care instructions and follow up appointment. NOTE DOBUTAMINE [id number] ADMIN BY SLOANE CULVER
== END | disposition home or self-care (01) ==
LOC: CHF HDHVI 08:16
PROVIDERS: ATTEND Internal Medicine Cardiovascular Disease
DX: I11.0 Hypertensive heart disease with heart failure (principal); I50.42 Chronic combined systolic (congestive) and diastolic (congestive) heart failure; J43.9 Emphysema, unspecified; R53.83 Other fatigue; I25.10 Atherosclerotic heart disease of native coronary artery without angina pectoris; I48.91 Unspecified atrial fibrillation; I27.21 Secondary pulmonary arterial hypertension; I42.8 Other cardiomyopathies; J96.10 Chronic respiratory failure, unspecified whether with hypoxia or hypercapnia; K21.9 Gastro-esophageal reflux disease without esophagitis; E78.5 Hyperlipidemia, unspecified; G89.29 Other chronic pain; E43 Unspecified severe protein-calorie malnutrition; E78.00 Pure hypercholesterolemia, unspecified; M19.90 Unspecified osteoarthritis, unspecified site; E11.9 Type 2 diabetes mellitus without complications; Z79.899 Other long term (current) drug therapy; Z87.891 Personal history of nicotine dependence; Z95.810 Presence of automatic (implantable) cardiac defibrillator; Z90.49 Acquired absence of other specified parts of digestive tract
CPT/HCPCS: 96365; 96366; G0463; J1250

== ENCOUNTER → 2019-08-30 | Outpatient (CLI) | payer MEDICARE ==
[~2019-08-30] VITALS: Ht 30.5 cm; Wt 57.8 kg
--- NOTE | 2019-08-30 08:15 | NUR ---
CHF PT ARRIVED TO THE CHF CLINIC FOR WEEKLY DOBUTAMINE INFUSION PER MD ORDER. A/O X4 VSS. PT STATED NO CHANGES SINCE LAST TREATMENT.
--- NOTE | 2019-08-30 08:58 | NUR ---
IV insertion IV access obtained, via clean sterile technique by inserting 22 gauge catheter at LFA after 3 attempt(s). IV secured properly. No trauma to site. Patient tolerated procedure well. NOTE 2 UNSUCCESSFUL ATTEMPTS BY MITCH CULVER 1 SUCCESSFUL ATTEMPT BY ARIK CULVER
[2019-08-30 09:01] VITALS: BP 129/42
--- NOTE | 2019-08-30 09:01 | NUR ---
DOBUTAMINE DRIP STARTED AT 5 MCG/KG/MIN. VSS. WILL CONTINUE TO MONITOR
[2019-08-30 09:15] VITALS: BP 131/50
[2019-08-30 09:30] VITALS: BP 126/48
--- NOTE | 2019-08-30 10:12 | NUR ---
PT TOLERATING DOBUTAMINE DRIP. IV SITE BENIGN. VSS. WILL CONTINUE TO MONITOR
[2019-08-30 12:09] VITALS: BP 146/64
--- NOTE | 2019-08-30 12:09 | NUR ---
Discharge Instructions See e-MAR for any mediations given with this visit. Patient education given on disease process. Patient verbalized understanding. Previous labs reviewed. Patient discharged in stable condition with after care instructions and follow up appointment. WILL RETURN TO CLINIC NEXT WEEK NOTE DOBUTAMINE [id number] ADMIN BY ARIK CULVER
== END | disposition home or self-care (01) ==
LOC: CHF HDHVI 08:22
PROVIDERS: ATTEND Internal Medicine Cardiovascular Disease
DX: I11.0 Hypertensive heart disease with heart failure (principal); I50.42 Chronic combined systolic (congestive) and diastolic (congestive) heart failure; I27.21 Secondary pulmonary arterial hypertension; I48.91 Unspecified atrial fibrillation; I25.10 Atherosclerotic heart disease of native coronary artery without angina pectoris; R53.83 Other fatigue; J43.9 Emphysema, unspecified; J96.10 Chronic respiratory failure, unspecified whether with hypoxia or hypercapnia; K21.9 Gastro-esophageal reflux disease without esophagitis; E78.5 Hyperlipidemia, unspecified; G89.29 Other chronic pain; E78.00 Pure hypercholesterolemia, unspecified; E11.9 Type 2 diabetes mellitus without complications; M19.90 Unspecified osteoarthritis, unspecified site; E43 Unspecified severe protein-calorie malnutrition; Z95.1 Presence of aortocoronary bypass graft; Z95.5 Presence of coronary angioplasty implant and graft; Z90.49 Acquired absence of other specified parts of digestive tract; Z79.899 Other long term (current) drug therapy; Z87.891 Personal history of nicotine dependence; Z95.810 Presence of automatic (implantable) cardiac defibrillator
CPT/HCPCS: 96365; 96366; G0463; J1250

== ENCOUNTER → 2019-09-02 | Outpatient (CLI) | payer MEDICARE ==
[2019-09-02 08:30] VITALS: BP 123/58
[2019-09-02 08:45] VITALS: BP 114/43
[2019-09-02 09:00] VITALS: BP 105/48
[2019-09-02 11:29] VITALS: BP 144/63
[2019-09-02 12:09] LABS: Basophils # (auto) 0.1 10 ^3/uL (0-0.2); Basophils % (auto) 1.4 % (0.0-2.0); Eosinophils # (auto) 0.4 10 ^3/uL (0-0.8); Eosinophils % (auto) 6.7 % (0.0-7.0); Hematocrit 31.3 % (41.0-53.0); Hemoglobin 10.4 g/dL (13.5-17.5); Lymphocytes # (auto) 0.9 10 ^3/uL (0.4-5.4); Lymphocytes % (auto) 16.3 % (10.0-50.0); Mean Corpuscular Hemoglobin 29.4 pg (28.0-32.0); Mean Corpuscular Hgb Conc. 33.1 g/dL (32.0-36.0); Mean Corpuscular Volume 88.7 fL (80.0-100.0); Monocytes # (auto) 0.4 10 ^3/uL (0-1.3); Monocytes % (auto) 8.2 % (0.0-12.0); Neutrophils # (auto) 3.5 10 ^3/uL (1.6-8.6); Neutrophils % (auto) 67.4 % (37.0-80.0); Nucleated Red Blood Cells % 0.1 %; Platelet Count (auto) 316 10^3/uL (140-450); Red Blood Cells 3.53 10^6/uL (4.5-5.90); Red Cell Distribution Width 14.9 % (11.8-14.3); White Blood Cell 5.2 10^3/uL (4.4-10.8)
[2019-09-02 12:14] LABS: BUN/Creatinine Ratio 17.5; Calcium 8.6 mg/dL (8.5-10.1); Magnesium 2.6 mg/dL (1.6-2.6); Potassium 4.2 mmol/L (3.5-5.1)
== END | disposition home or self-care (01) ==
LOC: CHF HDHVI 08:22
PROVIDERS: ATTEND Internal Medicine Cardiovascular Disease
DX: I11.0 Hypertensive heart disease with heart failure (principal); I50.42 Chronic combined systolic (congestive) and diastolic (congestive) heart failure; J43.9 Emphysema, unspecified; R53.83 Other fatigue; E78.5 Hyperlipidemia, unspecified; N39.0 Urinary tract infection, site not specified; I25.10 Atherosclerotic heart disease of native coronary artery without angina pectoris; I48.91 Unspecified atrial fibrillation; J96.10 Chronic respiratory failure, unspecified whether with hypoxia or hypercapnia; E03.9 Hypothyroidism, unspecified; E55.9 Vitamin D deficiency, unspecified; K21.9 Gastro-esophageal reflux disease without esophagitis; G89.29 Other chronic pain; E78.00 Pure hypercholesterolemia, unspecified; E11.9 Type 2 diabetes mellitus without complications; M19.90 Unspecified osteoarthritis, unspecified site; E43 Unspecified severe protein-calorie malnutrition; Z79.01 Long term (current) use of anticoagulants; Z85.810 Personal history of malignant neoplasm of tongue; Z79.899 Other long term (current) drug therapy; Z90.49 Acquired absence of other specified parts of digestive tract; Z87.891 Personal history of nicotine dependence; Z95.810 Presence of automatic (implantable) cardiac defibrillator; Z95.5 Presence of coronary angioplasty implant and graft
CPT/HCPCS: 36415; 80048; 83735; 83880; 85025; 96365; 96366; G0463; J1250

== ENCOUNTER → 2019-09-06 | Outpatient (CLI) | payer MEDICARE ==
[2019-09-06] VITALS (8 sets, daily range): BP systolic 140–159; BP diastolic 48–71
[~2019-09-06] MED LIST changes: +CYANOCOBALAMIN (B-12) 1000 MCG/1 ML VIAL IM ONE; +CYANOCOBALAMIN (B-12) 1000 MCG/1 ML VIAL ONE
--- NOTE | 2019-09-06 08:29 | NUR ---
CHF PT ARRIVED TO THE CHF CLINIC FOR WEEKLY INOTROPE INFUSION PER MD ORDERS. A/O X4. VSS.
--- NOTE | 2019-09-06 08:33 | NUR ---
IV insertion IV access obtained, via clean sterile technique by inserting 22 gauge catheter at LFA after 1 attempt(s). IV secured properly. No trauma to site. Patient tolerated procedure well. NOTE INSERTED BY MITCH CULVER
--- NOTE | 2019-09-06 08:41 | NUR ---
DOBUTAMINE INFUSION STARTED AT 5 MCG/KG/MIN PER MD ORDERS. VSS. WILL CONTINUE TO MONITOR.
--- NOTE | 2019-09-06 10:14 | NUR ---
PT BP OUTSIDE HIS PARAMETERS B/P 174/71. DOBUTAMINE DRIP PAUSED WILL CONTINUE TO MONITOR.
--- NOTE | 2019-09-06 12:09 | NUR ---
PT BP RETURNED TO BASELINE 140/60
--- NOTE | 2019-09-06 12:21 | NUR ---
Discharge Instructions See e-MAR for any mediations given with this visit. Patient education given on disease process. Patient verbalized understanding. Previous labs reviewed. Patient discharged in stable condition with after care instructions and follow up appointment. NEXT WEEK NOTE DOBUTAMINE [id number] ADMIN BY MITCH CULVER VIT B12 IM ADMIN BY MITCH CULVER
== END | disposition home or self-care (01) ==
LOC: CHF HDHVI 08:20
PROVIDERS: ATTEND Internal Medicine Cardiovascular Disease
DX: I11.0 Hypertensive heart disease with heart failure (principal); I50.42 Chronic combined systolic (congestive) and diastolic (congestive) heart failure; J43.9 Emphysema, unspecified; R53.83 Other fatigue; I25.10 Atherosclerotic heart disease of native coronary artery without angina pectoris; I48.91 Unspecified atrial fibrillation; I25.2 Old myocardial infarction; I42.8 Other cardiomyopathies; I27.21 Secondary pulmonary arterial hypertension; K21.9 Gastro-esophageal reflux disease without esophagitis; E78.5 Hyperlipidemia, unspecified; E03.9 Hypothyroidism, unspecified; E78.00 Pure hypercholesterolemia, unspecified; E11.9 Type 2 diabetes mellitus without complications; M19.90 Unspecified osteoarthritis, unspecified site; J96.10 Chronic respiratory failure, unspecified whether with hypoxia or hypercapnia; Z90.49 Acquired absence of other specified parts of digestive tract; Z79.899 Other long term (current) drug therapy; Z85.810 Personal history of malignant neoplasm of tongue; Z87.891 Personal history of nicotine dependence; Z95.1 Presence of aortocoronary bypass graft; Z95.810 Presence of automatic (implantable) cardiac defibrillator; Z95.5 Presence of coronary angioplasty implant and graft
CPT/HCPCS: 96365; 96366; 96372; G0463; J1250; J3420

== ENCOUNTER → 2019-09-09 | Outpatient (CLI) | payer MEDICARE ==
[2019-09-09] VITALS (10 sets, daily range): BP systolic 138–163; BP diastolic 55–72
[~2019-09-09] MED LIST changes: -CYANOCOBALAMIN (B-12) 1000 MCG/1 ML VIAL IM ONE; -CYANOCOBALAMIN (B-12) 1000 MCG/1 ML VIAL ONE
--- NOTE | 2019-09-09 07:56 | NUR ---
CHF PT ARRIVED TO THE CHF CLINIC FOR WEEKLY DOBUTAMINE TREATMENT PER MD ORDERS. A/0 X4 VSS. 2LB WT LOSS SINCE LAST VISIT
--- NOTE | 2019-09-09 08:14 | NUR ---
IV insertion IV access obtained, via clean sterile technique by inserting 22 gauge catheter at RFA after 1 attempt(s). IV secured properly. No trauma to site. Patient tolerated procedure well. NOTE INSERTED BY MITCH CULVER
--- NOTE | 2019-09-09 08:23 | NUR ---
DOBUTAMINE INFUSION STARTED AT 5 MCG/KG/MIN PER MD ORDERS. VSS. WILL CONTINUE TO MONITOR.
--- NOTE | 2019-09-09 09:25 | NUR ---
PT TOLERATING DOBUTAMINE INFUSION. VSS. IV SITE BENIGN. WILL CONTINUE TO MONITOR.
--- NOTE | 2019-09-09 11:33 | NUR ---
Discharge Instructions See e-MAR for any mediations given with this visit. Patient education given on disease process. Patient verbalized understanding. Previous labs reviewed. Patient discharged in stable condition with after care instructions and follow up appointment. WILL RETURN TO CLINIC MONDAY FOR F/U NOTE DOBUTAMINE IV [id number]
== END | disposition home or self-care (01) ==
LOC: CHF HDHVI 08:26
PROVIDERS: ATTEND Internal Medicine Cardiovascular Disease
DX: I11.0 Hypertensive heart disease with heart failure (principal); I50.42 Chronic combined systolic (congestive) and diastolic (congestive) heart failure; I25.10 Atherosclerotic heart disease of native coronary artery without angina pectoris; I48.91 Unspecified atrial fibrillation; I27.21 Secondary pulmonary arterial hypertension; J43.9 Emphysema, unspecified; J96.10 Chronic respiratory failure, unspecified whether with hypoxia or hypercapnia; R53.83 Other fatigue; K21.9 Gastro-esophageal reflux disease without esophagitis; E78.5 Hyperlipidemia, unspecified; G89.29 Other chronic pain; E78.00 Pure hypercholesterolemia, unspecified; M19.90 Unspecified osteoarthritis, unspecified site; E43 Unspecified severe protein-calorie malnutrition; Z95.1 Presence of aortocoronary bypass graft; Z79.01 Long term (current) use of anticoagulants; Z85.810 Personal history of malignant neoplasm of tongue; Z87.891 Personal history of nicotine dependence; Z95.810 Presence of automatic (implantable) cardiac defibrillator; Z95.5 Presence of coronary angioplasty implant and graft; Z79.899 Other long term (current) drug therapy; Z90.49 Acquired absence of other specified parts of digestive tract
CPT/HCPCS: 36415; 80162; 96365; 96366; G0463; J1250

== ENCOUNTER → 2019-09-13 | Outpatient (CLI) | payer MEDICARE ==
[2019-09-13] VITALS (9 sets, daily range): BP systolic 107–163; BP diastolic 41–78
== END | disposition home or self-care (01) ==
LOC: CHF HDHVI 08:20
PROVIDERS: ATTEND Internal Medicine Cardiovascular Disease
DX: I11.0 Hypertensive heart disease with heart failure (principal); I50.42 Chronic combined systolic (congestive) and diastolic (congestive) heart failure; I48.91 Unspecified atrial fibrillation; I25.10 Atherosclerotic heart disease of native coronary artery without angina pectoris; I27.21 Secondary pulmonary arterial hypertension; I25.2 Old myocardial infarction; I42.8 Other cardiomyopathies; J43.9 Emphysema, unspecified; K21.9 Gastro-esophageal reflux disease without esophagitis; E78.5 Hyperlipidemia, unspecified; E78.00 Pure hypercholesterolemia, unspecified; E11.9 Type 2 diabetes mellitus without complications; M19.90 Unspecified osteoarthritis, unspecified site; E43 Unspecified severe protein-calorie malnutrition; E03.9 Hypothyroidism, unspecified; Z79.01 Long term (current) use of anticoagulants; Z85.810 Personal history of malignant neoplasm of tongue; Z87.891 Personal history of nicotine dependence; Z95.1 Presence of aortocoronary bypass graft; Z95.810 Presence of automatic (implantable) cardiac defibrillator; Z95.5 Presence of coronary angioplasty implant and graft; Z79.899 Other long term (current) drug therapy; Z90.49 Acquired absence of other specified parts of digestive tract
CPT/HCPCS: 96365; 96366; G0463; J1250

== ENCOUNTER → 2019-09-16 | Outpatient (CLI) | payer MEDICARE ==
[2019-09-16] VITALS (8 sets, daily range): BP systolic 127–157; BP diastolic 56–69
--- NOTE | 2019-09-16 08:15 | NUR ---
CHF PT ARRIVED AT THE CHF CLINIC FOR TX/FU. A/O X 4 0 DISTRESS .
--- NOTE | 2019-09-16 08:20 | NUR ---
Clinic Provider Clinic Provider updated on pt status new orders received and carried out. Dobutamine gtt started at {5}mcg/kg/hr per MD order.
--- NOTE | 2019-09-16 08:40 | NUR ---
IV insertion IV access obtained, via clean sterile technique by inserting 22 gauge catheter at RFA after 1 attempt(s). IV secured properly. No trauma to site. Patient tolerated procedure well.
[2019-09-16 11:56] LABS: Basophils # (auto) 0.1 10 ^3/uL (0-0.2); Basophils % (auto) 1.3 % (0.0-2.0); Eosinophils # (auto) 0.3 10 ^3/uL (0-0.8); Eosinophils % (auto) 5.7 % (0.0-7.0); Hematocrit 29.2 % (41.0-53.0); Hemoglobin 9.5 g/dL (13.5-17.5); Lymphocytes # (auto) 0.5 10 ^3/uL (0.4-5.4); Lymphocytes % (auto) 10.8 % (10.0-50.0); Mean Corpuscular Hgb Conc. 32.5 g/dL (32.0-36.0); Mean Corpuscular Volume 89.3 fL (80.0-100.0); Monocytes # (auto) 0.3 10 ^3/uL (0-1.3); Monocytes % (auto) 7.5 % (0.0-12.0); Neutrophils # (auto) 3.4 10 ^3/uL (1.6-8.6); Neutrophils % (auto) 74.7 % (37.0-80.0); Nucleated Red Blood Cells % 0.1 %; Platelet Count (auto) 257 10^3/uL (140-450); Red Blood Cells 3.27 10^6/uL (4.5-5.90); Red Cell Distribution Width 15.7 % (11.8-14.3); White Blood Cell 4.5 10^3/uL (4.4-10.8)
--- NOTE | 2019-09-16 11:56 | NUR ---
IV removal IV DC'd with sterile technique, catheter fully intact. Pressure dressing applied to site. Patient tolerated procedure well. Discharged with aftercare instructions per MD. NOTE: DCD BY SEBASTIÁN CULVER
[2019-09-16 12:05] LABS: BUN/Creatinine Ratio 19.2; Calcium 8.5 mg/dL (8.5-10.1); Magnesium 2.4 mg/dL (1.6-2.6); Potassium 4.7 mmol/L (3.5-5.1)
--- NOTE | 2019-09-16 12:11 | NUR ---
Discharge Instructions See e-MAR for any mediations given with this visit. Patient education given on disease process. Patient verbalized understanding. Previous labs reviewed. Patient discharged in stable condition with after care instructions and follow up appointment. MEDICATIONS DOBUTAMINE DRIP 5MCG/KG/MIN
== END | disposition home or self-care (01) ==
LOC: CHF HDHVI 08:05
PROVIDERS: ATTEND Internal Medicine Cardiovascular Disease
DX: I11.0 Hypertensive heart disease with heart failure (principal); I50.42 Chronic combined systolic (congestive) and diastolic (congestive) heart failure; I25.10 Atherosclerotic heart disease of native coronary artery without angina pectoris; I48.91 Unspecified atrial fibrillation; I25.2 Old myocardial infarction; I42.8 Other cardiomyopathies; I27.21 Secondary pulmonary arterial hypertension; J43.9 Emphysema, unspecified; K21.9 Gastro-esophageal reflux disease without esophagitis; E78.5 Hyperlipidemia, unspecified; E03.9 Hypothyroidism, unspecified; E78.00 Pure hypercholesterolemia, unspecified; E11.9 Type 2 diabetes mellitus without complications; E43 Unspecified severe protein-calorie malnutrition; G89.29 Other chronic pain; Z79.899 Other long term (current) drug therapy; Z85.810 Personal history of malignant neoplasm of tongue; Z87.891 Personal history of nicotine dependence; Z95.1 Presence of aortocoronary bypass graft; Z95.810 Presence of automatic (implantable) cardiac defibrillator; Z95.5 Presence of coronary angioplasty implant and graft; Z79.01 Long term (current) use of anticoagulants; Z90.49 Acquired absence of other specified parts of digestive tract
CPT/HCPCS: 36415; 80048; 83735; 83880; 85025; 96365; 96366; G0463; J1250

== ENCOUNTER → 2019-09-20 | Outpatient (CLI) | payer MEDICARE ==
--- NOTE | 2019-09-20 08:15 | NUR ---
Clinic Provider Clinic Provider updated on pt status new orders received and carried out. Dobutamine gtt started at {5}mcg/kg/hr per MD order.
--- NOTE | 2019-09-20 08:15 | NUR ---
CHF PT ARRIVED TO THE CHF CLINIC FOR TX AND F/U. VSS 0 DISTRESS NOTED
--- NOTE | 2019-09-20 08:40 | NUR ---
IV insertion IV access obtained, via clean sterile technique by inserting 22 gauge catheter at LFA after 1 attempt(s). IV secured properly. No trauma to site. Patient tolerated procedure well.
[2019-09-20 08:47] VITALS: BP 88/55
--- NOTE | 2019-09-20 08:47 | NUR ---
DOBUTAMINE DRIP STARTED PER MD ORDER
[2019-09-20 09:00] VITALS: BP 121/45
[2019-09-20 09:30] VITALS: BP_SYST 119; BP_SYST 139; BP_DIAS 56
--- NOTE | 2019-09-20 10:05 | NUR ---
PT TOLERATING DOBUTAMINE SEE VSS
[2019-09-20 11:00] VITALS: BP 124/56
[2019-09-20 11:30] VITALS: BP 118/48
--- NOTE | 2019-09-20 12:09 | NUR ---
Whitney Cath Removal Go needle D/C'd after Heparin flush per protocol. See e-MAR for medications given during this visit. Sterile occlusive dressing to site. Patient tolerated procedure well. Site benign post infusion.
[2019-09-20 12:14] VITALS: BP 118/48
--- NOTE | 2019-09-20 12:14 | NUR ---
Discharge Instructions See e-MAR for any mediations given with this visit. Patient education given on disease process. Patient verbalized understanding. Previous labs reviewed. Patient discharged in stable condition with after care instructions and follow up appointment. MEDICATIONS DOBUTAMINE DRIP [id number]
[2019-09-20 12:40] LABS: Basophils # (auto) 0.1 10 ^3/uL (0-0.2); Basophils % (auto) 0.7 % (0.0-2.0); Eosinophils # (auto) 0.1 10 ^3/uL (0-0.8); Eosinophils % (auto) 0.9 % (0.0-7.0); Hematocrit 29.2 % (41.0-53.0); Hemoglobin 9.6 g/dL (13.5-17.5); Lymphocytes # (auto) 0.6 10 ^3/uL (0.4-5.4); Lymphocytes % (auto) 7.6 % (10.0-50.0); Mean Corpuscular Hemoglobin 29.2 pg (28.0-32.0); Mean Corpuscular Volume 88.6 fL (80.0-100.0); Monocytes # (auto) 0.4 10 ^3/uL (0-1.3); Monocytes % (auto) 4.9 % (0.0-12.0); Neutrophils # (auto) 6.7 10 ^3/uL (1.6-8.6); Neutrophils % (auto) 85.9 % (37.0-80.0); Platelet Count (auto) 269 10^3/uL (140-450); White Blood Cell 7.8 10^3/uL (4.4-10.8)
== END | disposition home or self-care (01) ==
LOC: CHF HDHVI 08:16
PROVIDERS: ATTEND Internal Medicine Cardiovascular Disease
DX: I11.0 Hypertensive heart disease with heart failure (principal); I50.9 Heart failure, unspecified; I25.10 Atherosclerotic heart disease of native coronary artery without angina pectoris; I50.42 Chronic combined systolic (congestive) and diastolic (congestive) heart failure; J43.9 Emphysema, unspecified; K21.9 Gastro-esophageal reflux disease without esophagitis; E78.5 Hyperlipidemia, unspecified; E03.9 Hypothyroidism, unspecified; I25.2 Old myocardial infarction; M19.90 Unspecified osteoarthritis, unspecified site; E78.00 Pure hypercholesterolemia, unspecified; I48.91 Unspecified atrial fibrillation; Z79.899 Other long term (current) drug therapy; Z79.01 Long term (current) use of anticoagulants; Z95.5 Presence of coronary angioplasty implant and graft; Z87.891 Personal history of nicotine dependence; Z90.49 Acquired absence of other specified parts of digestive tract
CPT/HCPCS: 36415; 82565; 83880; 84132; 84520; 85025; 96365; 96366; G0463; J1250

== ENCOUNTER → 2019-09-23 | Outpatient (CLI) | payer MEDICARE ==
[~2019-09-23] VITALS: Ht 30.5 cm; Wt 57.6 kg
[2019-09-23] VITALS (9 sets, daily range): BP systolic 120–180; BP diastolic 50–72
--- NOTE | 2019-09-23 08:05 | NUR ---
CHF PT ARRIVED TO THE CHF CLINIC FOR WEEKLY DOBUTAMINE INFUSION PER MD ORDERS. A/O X4.
--- NOTE | 2019-09-23 08:28 | NUR ---
IV insertion IV access obtained, via clean sterile technique by inserting 22 gauge catheter at RFA after 2 attempt(s). IV secured properly. No trauma to site. Patient tolerated procedure well. NOTE INSERTED BY MITCH CULVER
--- NOTE | 2019-09-23 08:37 | NUR ---
DOBUTAMINE INFUSION STARTED @ 5 MCG/KG/MIN PER MD ORDERS. VSS. WILL CONTINUE TO MONITOR.
--- NOTE | 2019-09-23 09:34 | NUR ---
PT TOLERATING DOBUTAMINE DRIP. IV SITE BENIGN. VSS. WILL CONTINUE TO MONITOR.
--- NOTE | 2019-09-23 10:05 | NUR ---
BP 180/72 PAUSED DOBUTAMINE INFUSION. PT A/0X4. WILL CONTINUE TO MONITOR.
--- NOTE | 2019-09-23 10:30 | NUR ---
[id number] DOBUTAMINE DRIP BP 160S WILL CONTINUE TO MONITOR
--- NOTE | 2019-09-23 11:00 | NUR ---
PT TOLERATING DOBUTAMINE DRIP 159/60 0 DISTRESS
--- NOTE | 2019-09-23 11:38 | NUR ---
IV removal IV DC'd with sterile technique, catheter fully intact. Pressure dressing applied to site. Patient tolerated procedure well. Discharged with aftercare instructions per MD. NOTE:
--- NOTE | 2019-09-23 11:39 | NUR ---
Discharge Instructions See e-MAR for any mediations given with this visit. Patient education given on disease process. Patient verbalized understanding. Previous labs reviewed. Patient discharged in stable condition with after care instructions and follow up appointment. MEDICATIONS DOBUTAMINE DRIP [id number]
== END | disposition home or self-care (01) ==
LOC: CHF HDHVI 08:03
PROVIDERS: ATTEND Internal Medicine Cardiovascular Disease
DX: I11.0 Hypertensive heart disease with heart failure (principal); I50.42 Chronic combined systolic (congestive) and diastolic (congestive) heart failure; I25.10 Atherosclerotic heart disease of native coronary artery without angina pectoris; J43.9 Emphysema, unspecified; K21.9 Gastro-esophageal reflux disease without esophagitis; E78.5 Hyperlipidemia, unspecified; E03.9 Hypothyroidism, unspecified; E78.00 Pure hypercholesterolemia, unspecified; E11.9 Type 2 diabetes mellitus without complications; I48.91 Unspecified atrial fibrillation; M19.90 Unspecified osteoarthritis, unspecified site; I25.2 Old myocardial infarction; Z79.899 Other long term (current) drug therapy; Z90.49 Acquired absence of other specified parts of digestive tract; Z79.01 Long term (current) use of anticoagulants; Z87.891 Personal history of nicotine dependence; Z95.5 Presence of coronary angioplasty implant and graft
CPT/HCPCS: 85610; 96365; 96366; G0463; J1250

== ENCOUNTER → 2019-09-27 | Outpatient (CLI) | payer MEDICARE ==
[~2019-09-27] MED LIST changes: +DIGO0.12 PO
[2019-09-27 08:42] VITALS: BP 122/59
[2019-09-27 09:00] VITALS: BP 141/60
[2019-09-27 09:15] VITALS: BP 143/65
[2019-09-27 11:41] VITALS: BP 148/70
== END | disposition home or self-care (01) ==
LOC: CHF HDHVI 08:21
PROVIDERS: ATTEND Internal Medicine Cardiovascular Disease
DX: I11.0 Hypertensive heart disease with heart failure (principal); I50.42 Chronic combined systolic (congestive) and diastolic (congestive) heart failure; R53.83 Other fatigue; I48.91 Unspecified atrial fibrillation; I25.10 Atherosclerotic heart disease of native coronary artery without angina pectoris; K21.9 Gastro-esophageal reflux disease without esophagitis; J44.9 Chronic obstructive pulmonary disease, unspecified; E78.5 Hyperlipidemia, unspecified; I25.2 Old myocardial infarction; E03.9 Hypothyroidism, unspecified; M19.90 Unspecified osteoarthritis, unspecified site; Z90.49 Acquired absence of other specified parts of digestive tract; Z87.891 Personal history of nicotine dependence; Z95.5 Presence of coronary angioplasty implant and graft; Z79.899 Other long term (current) drug therapy
CPT/HCPCS: 96365; 96366; G0463; J1250

== ENCOUNTER → 2019-09-30 | Outpatient (CLI) | payer MEDICARE ==
[2019-09-30] VITALS (8 sets, daily range): BP systolic 100–127; BP diastolic 40–52
[~2019-09-30] MED LIST changes: -DIGO0.12 PO
--- NOTE | 2019-09-30 08:15 | NUR ---
CHF PT ARRIVED TO THE CHF CLINIC FOR WEEKLY DOBUTAMINE INFUSION PER MD ORDERS. A/O X4
--- NOTE | 2019-09-30 08:25 | NUR ---
IV insertion IV access obtained, via clean sterile technique by inserting 22 gauge catheter at LFA after 1 attempt(s). IV secured properly. No trauma to site. Patient tolerated procedure well. NOTE INSERTED BY KAMILA CULVER
--- NOTE | 2019-09-30 08:33 | NUR ---
DOBUTAMINE INFUSION STARTED AT 5 MCG/KG/MIN PE RMD ORDER. VSS. WILL CONTINUE TO MONITOR
--- NOTE | 2019-09-30 10:00 | NUR ---
Patient in chair, breathing even and unlabored, denies pain. Will continue to monitor.
--- NOTE | 2019-09-30 11:40 | NUR ---
CHF Clinic Discharge Instructions See e-MAR for any mediations given with this visit. Patient education given on disease process. Patient verbalized understanding. Previous labs reviewed. Patient discharged in stable condition with after care instructions and follow up appointment. Note Dobutamine [id number] admin by Carly CULVER. INR 2.2 on 6mg Coumadin daily, patient to remain on current dose will recheck on Monday.
== END | disposition home or self-care (01) ==
LOC: CHF HDHVI 08:26
PROVIDERS: ATTEND Internal Medicine Cardiovascular Disease
DX: I11.0 Hypertensive heart disease with heart failure (principal); I50.42 Chronic combined systolic (congestive) and diastolic (congestive) heart failure; I25.10 Atherosclerotic heart disease of native coronary artery without angina pectoris; I48.91 Unspecified atrial fibrillation; I27.21 Secondary pulmonary arterial hypertension; I25.2 Old myocardial infarction; R53.83 Other fatigue; J43.9 Emphysema, unspecified; K21.9 Gastro-esophageal reflux disease without esophagitis; E78.5 Hyperlipidemia, unspecified; E03.9 Hypothyroidism, unspecified; E78.00 Pure hypercholesterolemia, unspecified; E11.9 Type 2 diabetes mellitus without complications; G89.29 Other chronic pain; E43 Unspecified severe protein-calorie malnutrition; Z79.899 Other long term (current) drug therapy; Z87.891 Personal history of nicotine dependence; Z79.01 Long term (current) use of anticoagulants; Z85.810 Personal history of malignant neoplasm of tongue; Z95.1 Presence of aortocoronary bypass graft; Z95.810 Presence of automatic (implantable) cardiac defibrillator
CPT/HCPCS: 85610; 96365; 96366; G0463; J1250

== ENCOUNTER → 2019-10-04 | Outpatient (CLI) | payer MEDICARE ==
[~2019-10-04] VITALS: Ht 30.5 cm; Wt 58.1 kg
[2019-10-04] VITALS (9 sets, daily range): BP systolic 125–154; BP diastolic 48–65
[~2019-10-04] MED LIST changes: +CYANOCOBALAMIN (B-12) 1000 MCG/1 ML VIAL IM ONE; +CYANOCOBALAMIN (B-12) 1000 MCG/1 ML VIAL ONE
== END | disposition home or self-care (01) ==
LOC: CHF HDHVI 08:06
PROVIDERS: ATTEND Internal Medicine Cardiovascular Disease
DX: I11.0 Hypertensive heart disease with heart failure (principal); I50.42 Chronic combined systolic (congestive) and diastolic (congestive) heart failure; R53.83 Other fatigue; I25.10 Atherosclerotic heart disease of native coronary artery without angina pectoris; I48.91 Unspecified atrial fibrillation; I25.2 Old myocardial infarction; I27.21 Secondary pulmonary arterial hypertension; I42.8 Other cardiomyopathies; J43.9 Emphysema, unspecified; K21.9 Gastro-esophageal reflux disease without esophagitis; E78.5 Hyperlipidemia, unspecified; E03.9 Hypothyroidism, unspecified; G89.29 Other chronic pain; E43 Unspecified severe protein-calorie malnutrition; E78.00 Pure hypercholesterolemia, unspecified; M19.90 Unspecified osteoarthritis, unspecified site; E11.9 Type 2 diabetes mellitus without complications; Z79.899 Other long term (current) drug therapy; Z87.891 Personal history of nicotine dependence; Z95.1 Presence of aortocoronary bypass graft; Z79.01 Long term (current) use of anticoagulants; Z95.810 Presence of automatic (implantable) cardiac defibrillator; Z90.49 Acquired absence of other specified parts of digestive tract; Z95.5 Presence of coronary angioplasty implant and graft
CPT/HCPCS: 85610; 96365; 96366; 96372; G0463; J1250; J3420

== ENCOUNTER → 2019-10-07 | Outpatient (CLI) | payer MEDICARE ==
[2019-10-07] VITALS (9 sets, daily range): BP systolic 142–182; BP diastolic 43–76
[~2019-10-07] MED LIST changes: -CYANOCOBALAMIN (B-12) 1000 MCG/1 ML VIAL IM ONE; -CYANOCOBALAMIN (B-12) 1000 MCG/1 ML VIAL ONE; +DIGO0.12 PO; +ENAL2.5T11 PO; -ENAL2.5T2 PO
--- NOTE | 2019-10-07 07:54 | NUR ---
CHF PT ARRIVED TO THE CHF CLINIC FOR WEEKLY DOBUTAMINE INFUSION PER MD ORDER. A/O X4
--- NOTE | 2019-10-07 08:21 | NUR ---
IV insertion IV access obtained, via clean sterile technique by inserting 22 gauge catheter at ANDREW after 1 attempt(s). IV secured properly. No trauma to site. Patient tolerated procedure well. NOTE INSERTED BY MITCH CULVER
--- NOTE | 2019-10-07 08:28 | NUR ---
DOBUTAMINE INFUSION STARTED @ 5 MCG/KG/MIN PER MD ORDERS. VSS. WILL CONTINUE TO MONITOR.
--- NOTE | 2019-10-07 10:53 | NUR ---
PT B/P 176/68 DOBUTAMINE INFUSION PAUSED. WILL CONTINUE TO MONITOR PT
--- NOTE | 2019-10-07 10:59 | NUR ---
PT B/P DECREASED TO 155/71 DRIP RESUMED. WILL CONTINUE TO MONITOR
--- NOTE | 2019-10-07 11:16 | NUR ---
B/P 182/65 DOBUTAMINE INFUSION STOPPED PER MD ORDERS. WILL CONTINUE TO MONITOR
--- NOTE | 2019-10-07 11:43 | NUR ---
Discharge Instructions See e-MAR for any mediations given with this visit. Patient education given on disease process. Patient verbalized understanding. Previous labs reviewed. Patient discharged in stable condition with after care instructions and follow up appointment. FOLLOW UP APPOINT MADE WITH DR MCGRATH MONDAY NOTE DOBUTAMINE IV [id number]: [id number] ADMIN BY MITCH CULVER
[2019-10-07 11:55] LABS: Basophils # (auto) 0.1 10 ^3/uL (0-0.2); Basophils % (auto) 1.5 % (0.0-2.0); Eosinophils # (auto) 0.1 10 ^3/uL (0-0.8); Eosinophils % (auto) 3.1 % (0.0-7.0); Hematocrit 32.5 % (41.0-53.0); Hemoglobin 10.5 g/dL (13.5-17.5); Lymphocytes # (auto) 0.4 10 ^3/uL (0.4-5.4); Lymphocytes % (auto) 7.8 % (10.0-50.0); Mean Corpuscular Hgb Conc. 32.5 g/dL (32.0-36.0); Mean Corpuscular Volume 89.3 fL (80.0-100.0); Monocytes # (auto) 0.3 10 ^3/uL (0-1.3); Monocytes % (auto) 5.5 % (0.0-12.0); Neutrophils # (auto) 3.9 10 ^3/uL (1.6-8.6); Neutrophils % (auto) 82.1 % (37.0-80.0); Nucleated Red Blood Cells % 0.1 %; Platelet Count (auto) 297 10^3/uL (140-450); Red Blood Cells 3.64 10^6/uL (4.5-5.90); Red Cell Distribution Width 15.6 % (11.8-14.3); White Blood Cell 4.7 10^3/uL (4.4-10.8)
[2019-10-07 12:27] LABS: Albumin 3.1 g/dL (3.4-5.0); Calcium 8.4 mg/dL (8.5-10.1); Magnesium 2.7 mg/dL (1.6-2.6); Potassium 4.1 mmol/L (3.5-5.1)
[2019-10-07 12:29] LABS: BUN/Creatinine Ratio 19.1; Bilirubin, Total 0.6 mg/dL (0.2-1.0); Total Protein 7.8 g/dL (6.4-8.2)
== END | disposition home or self-care (01) ==
LOC: CHF HDHVI 08:04
PROVIDERS: ATTEND Internal Medicine Cardiovascular Disease
DX: I11.0 Hypertensive heart disease with heart failure (principal); I50.42 Chronic combined systolic (congestive) and diastolic (congestive) heart failure; J43.9 Emphysema, unspecified; I25.10 Atherosclerotic heart disease of native coronary artery without angina pectoris; I48.91 Unspecified atrial fibrillation; I27.21 Secondary pulmonary arterial hypertension; I42.8 Other cardiomyopathies; R53.83 Other fatigue; E78.5 Hyperlipidemia, unspecified; K21.9 Gastro-esophageal reflux disease without esophagitis; E03.9 Hypothyroidism, unspecified; G89.29 Other chronic pain; E78.00 Pure hypercholesterolemia, unspecified; E11.9 Type 2 diabetes mellitus without complications; M19.90 Unspecified osteoarthritis, unspecified site; E43 Unspecified severe protein-calorie malnutrition; Z87.891 Personal history of nicotine dependence; Z95.1 Presence of aortocoronary bypass graft; Z95.810 Presence of automatic (implantable) cardiac defibrillator; Z95.5 Presence of coronary angioplasty implant and graft; Z79.899 Other long term (current) drug therapy; Z90.49 Acquired absence of other specified parts of digestive tract; Z79.01 Long term (current) use of anticoagulants
CPT/HCPCS: 36415; 80053; 83735; 83880; 85025; 96365; 96366; G0463; J1250

== ENCOUNTER → 2019-10-11 | Outpatient (CLI) | payer MEDICARE ==
[2019-10-11] VITALS (9 sets, daily range): BP systolic 129–152; BP diastolic 52–68
[~2019-10-11] MED LIST changes: -DIGO0.12 PO; -ENAL2.5T11 PO; +ENAL2.5T2 PO
[2019-10-11 09:49] LABS: INR 1.67 (0.9-1.15); Partial Thromboplastin Time 44.4 sec (23.64-32.05)
== END | disposition home or self-care (01) ==
LOC: CHF HDHVI 08:06
PROVIDERS: ATTEND Internal Medicine Cardiovascular Disease
DX: I11.0 Hypertensive heart disease with heart failure (principal); I50.42 Chronic combined systolic (congestive) and diastolic (congestive) heart failure; I25.10 Atherosclerotic heart disease of native coronary artery without angina pectoris; I27.21 Secondary pulmonary arterial hypertension; I48.91 Unspecified atrial fibrillation; I42.8 Other cardiomyopathies; I25.2 Old myocardial infarction; J43.9 Emphysema, unspecified; R53.83 Other fatigue; K21.9 Gastro-esophageal reflux disease without esophagitis; E78.5 Hyperlipidemia, unspecified; R79.1 Abnormal coagulation profile; E03.9 Hypothyroidism, unspecified; G89.29 Other chronic pain; E78.00 Pure hypercholesterolemia, unspecified; E11.9 Type 2 diabetes mellitus without complications; M19.90 Unspecified osteoarthritis, unspecified site; Z85.810 Personal history of malignant neoplasm of tongue; Z95.810 Presence of automatic (implantable) cardiac defibrillator; Z79.899 Other long term (current) drug therapy; Z87.891 Personal history of nicotine dependence; Z95.1 Presence of aortocoronary bypass graft; Z90.49 Acquired absence of other specified parts of digestive tract; Z95.5 Presence of coronary angioplasty implant and graft; Z79.01 Long term (current) use of anticoagulants
CPT/HCPCS: 36415; 83880; 85610; 85730; 96365; 96366; G0463; J1250

== ENCOUNTER → 2019-10-14 | Outpatient (CLI) | payer MEDICARE ==
[2019-10-14] VITALS (11 sets, daily range): BP systolic 97–171; BP diastolic 44–84
[~2019-10-14] VITALS: Ht 30.5 cm; Wt 56.9 kg
--- NOTE | 2019-10-14 08:30 | NUR ---
Pt in clinic for scheduled infusion as ordered by . Pt AAOx4, ambulatory, breathing even and unlabored. Pt wearing face mask, states he stayed in all weekend.
--- NOTE | 2019-10-14 08:50 | NUR ---
IV insertion IV access obtained, via clean sterile technique by inserting 22 gauge catheter at LW after 1 attempt(s). IV secured properly. No trauma to site. Patient tolerated procedure well.
--- NOTE | 2019-10-14 08:58 | NUR ---
Medication infusion started as documented in eMAR. Will continue to monitor.
--- NOTE | 2019-10-14 11:30 | NUR ---
Pt BP elevated will continue to monitor and stop infusion if needed.
--- NOTE | 2019-10-14 11:50 | NUR ---
Pt BP still elevated, infusion stopped, will continue to monitor.
--- NOTE | 2019-10-14 12:14 | NUR ---
IV removal IV DC'd with sterile technique, catheter fully intact. Pressure dressing applied to site. Patient tolerated procedure well.
--- NOTE | 2019-10-14 12:15 | NUR ---
Pt BP decreased, will DC home.
--- NOTE | 2019-10-14 12:16 | NUR ---
CHF CLINIC Discharge Instructions See e-MAR for any mediations given with this visit. Patient education given on disease process. Patient verbalized understanding. Previous labs reviewed. Patient discharged in stable condition with after care instructions and follow up appointment. Note Dobutamine [id number] admin by Lona CULVER.
[2019-10-14 12:23] LABS: Basophils # (auto) 0.1 10 ^3/uL (0-0.2); Basophils % (auto) 1.4 % (0.0-2.0); Eosinophils # (auto) 0.2 10 ^3/uL (0-0.8); Eosinophils % (auto) 4.4 % (0.0-7.0); Hematocrit 29.1 % (41.0-53.0); Hemoglobin 9.5 g/dL (13.5-17.5); Lymphocytes # (auto) 0.4 10 ^3/uL (0.4-5.4); Lymphocytes % (auto) 9.4 % (10.0-50.0); Mean Corpuscular Hemoglobin 28.9 pg (28.0-32.0); Mean Corpuscular Hgb Conc. 32.5 g/dL (32.0-36.0); Mean Corpuscular Volume 88.9 fL (80.0-100.0); Monocytes # (auto) 0.3 10 ^3/uL (0-1.3); Monocytes % (auto) 7.3 % (0.0-12.0); Neutrophils # (auto) 3.5 10 ^3/uL (1.6-8.6); Neutrophils % (auto) 77.5 % (37.0-80.0); Nucleated Red Blood Cells % 0.1 %; Platelet Count (auto) 295 10^3/uL (140-450); Red Blood Cells 3.27 10^6/uL (4.5-5.90); White Blood Cell 4.5 10^3/uL (4.4-10.8)
[2019-10-14 12:31] LABS: BUN/Creatinine Ratio 17.9; Magnesium 2.6 mg/dL (1.6-2.6); Potassium 3.8 mmol/L (3.5-5.1)
== END | disposition home or self-care (01) ==
LOC: Rad HDHVI 08:16
PROVIDERS: ATTEND Internal Medicine Cardiovascular Disease
DX: I11.0 Hypertensive heart disease with heart failure (principal); I50.42 Chronic combined systolic (congestive) and diastolic (congestive) heart failure; J18.9 Pneumonia, unspecified organism; R53.83 Other fatigue; I25.10 Atherosclerotic heart disease of native coronary artery without angina pectoris; I48.91 Unspecified atrial fibrillation; I25.2 Old myocardial infarction; I27.21 Secondary pulmonary arterial hypertension; J43.9 Emphysema, unspecified; J90 Pleural effusion, not elsewhere classified; K21.9 Gastro-esophageal reflux disease without esophagitis; E78.5 Hyperlipidemia, unspecified; E03.9 Hypothyroidism, unspecified; G89.29 Other chronic pain; E78.00 Pure hypercholesterolemia, unspecified; E43 Unspecified severe protein-calorie malnutrition; Z85.810 Personal history of malignant neoplasm of tongue; Z95.5 Presence of coronary angioplasty implant and graft; Z87.891 Personal history of nicotine dependence; Z95.810 Presence of automatic (implantable) cardiac defibrillator; Z79.01 Long term (current) use of anticoagulants; Z79.899 Other long term (current) drug therapy; Z90.49 Acquired absence of other specified parts of digestive tract
CPT/HCPCS: 36415; 71046; 80048; 83735; 83880; 85025; 96365; 96366; G0463; J1250

== ENCOUNTER → 2019-10-18 | Outpatient (CLI) | payer MEDICARE ==
[2019-10-18] VITALS (10 sets, daily range): BP systolic 114–164; BP diastolic 53–71
== END | disposition home or self-care (01) ==
LOC: CHF HDHVI 08:09
PROVIDERS: ATTEND Internal Medicine Cardiovascular Disease
DX: I11.0 Hypertensive heart disease with heart failure (principal); I50.42 Chronic combined systolic (congestive) and diastolic (congestive) heart failure; I25.10 Atherosclerotic heart disease of native coronary artery without angina pectoris; I25.2 Old myocardial infarction; I27.21 Secondary pulmonary arterial hypertension; I48.91 Unspecified atrial fibrillation; I42.8 Other cardiomyopathies; J43.9 Emphysema, unspecified; R53.83 Other fatigue; R06.02 Shortness of breath; K21.9 Gastro-esophageal reflux disease without esophagitis; E78.5 Hyperlipidemia, unspecified; E03.9 Hypothyroidism, unspecified; G89.29 Other chronic pain; J90 Pleural effusion, not elsewhere classified; E78.00 Pure hypercholesterolemia, unspecified; E11.9 Type 2 diabetes mellitus without complications; M19.90 Unspecified osteoarthritis, unspecified site; Z79.899 Other long term (current) drug therapy; Z85.810 Personal history of malignant neoplasm of tongue; Z87.891 Personal history of nicotine dependence; Z79.01 Long term (current) use of anticoagulants; Z90.49 Acquired absence of other specified parts of digestive tract; Z95.810 Presence of automatic (implantable) cardiac defibrillator; Z95.1 Presence of aortocoronary bypass graft
CPT/HCPCS: 82962; 85610; 96365; 96366; G0463; J1250

== ENCOUNTER → 2019-10-21 | Outpatient (CLI) | payer MEDICARE ==
[2019-10-21] VITALS (7 sets, daily range): BP systolic 95–157; BP diastolic 41–81
[~2019-10-21] MED LIST changes: +DIGO0.12 PO; +ENAL2.5T11 PO; -ENAL2.5T2 PO
--- NOTE | 2019-10-21 08:05 | NUR ---
Patient in clinic for scheduled infusion. Pt AAOx4, ambulatory, breathing even and unlabored.
--- NOTE | 2019-10-21 08:10 | NUR ---
IV insertion IV access obtained by Sandoval CULVER, via clean sterile technique by inserting 22 gauge catheter at LW after 1 attempt(s). IV secured properly. No trauma to site. Patient tolerated procedure well.
--- NOTE | 2019-10-21 10:00 | NUR ---
Patient resting in chair watching TV, breathing even and unlabored, will continue to monitor.
--- NOTE | 2019-10-21 11:38 | NUR ---
IV removal IV DC'd with sterile technique, catheter fully intact. Pressure dressing applied to site. Patient tolerated procedure well.
--- NOTE | 2019-10-21 12:00 | NUR ---
CHF Clinic Discharge Instructions See e-MAR for any mediations given with this visit. Patient education given on disease process. Patient verbalized understanding. Previous labs reviewed. Patient discharged in stable condition with after care instructions and follow up appointment. Note Dobutamine [id number] admin by Sandoval CULVER INR 1.6 on 6mg daily, dose to remain the same will recheck on Monday. Patient on 49/51mg BID Entresto and Coreg 6.125mg BID.
== END | disposition home or self-care (01) ==
LOC: CHF HDHVI 08:19
PROVIDERS: ATTEND Internal Medicine Cardiovascular Disease
DX: I11.0 Hypertensive heart disease with heart failure (principal); I50.42 Chronic combined systolic (congestive) and diastolic (congestive) heart failure; I25.10 Atherosclerotic heart disease of native coronary artery without angina pectoris; I48.91 Unspecified atrial fibrillation; I27.21 Secondary pulmonary arterial hypertension; I42.8 Other cardiomyopathies; I25.2 Old myocardial infarction; J43.9 Emphysema, unspecified; K21.9 Gastro-esophageal reflux disease without esophagitis; E78.5 Hyperlipidemia, unspecified; E03.9 Hypothyroidism, unspecified; G89.29 Other chronic pain; E78.00 Pure hypercholesterolemia, unspecified; E11.9 Type 2 diabetes mellitus without complications; R53.83 Other fatigue; E43 Unspecified severe protein-calorie malnutrition; M19.90 Unspecified osteoarthritis, unspecified site; R06.02 Shortness of breath; Z90.49 Acquired absence of other specified parts of digestive tract; Z79.899 Other long term (current) drug therapy; Z85.810 Personal history of malignant neoplasm of tongue; Z87.891 Personal history of nicotine dependence; Z79.01 Long term (current) use of anticoagulants; Z95.5 Presence of coronary angioplasty implant and graft
CPT/HCPCS: 83880; 85610; 96365; 96366; G0463; J1250

== ENCOUNTER → 2019-10-22 | Outpatient (CLI) | payer MEDICARE ==
[~2019-10-22] MED LIST changes: -DIGO0.12 PO; -DOBUTamine 1000MCG/ML 250 ML IV ONE; -ENAL2.5T11 PO; +ENAL2.5T2 PO
== END | disposition home or self-care (01) ==
LOC: Rad HDHVI 14:19
PROVIDERS: ATTEND Internal Medicine Cardiovascular Disease
DX: I25.10 Atherosclerotic heart disease of native coronary artery without angina pectoris (principal); I42.9 Cardiomyopathy, unspecified; I10 Essential (primary) hypertension
CPT/HCPCS: 93306

== ENCOUNTER → 2019-10-25 | Outpatient (CLI) | payer MEDICARE ==
[~2019-10-25] MED LIST changes: +DOBUTamine 1000MCG/ML 250 ML IV ONE
--- NOTE | 2019-10-25 08:20 | NUR ---
CHF PT ARRIVED TO THE CHF CLINIC FOR TX AND EVAL/ A/O X 3 0 DISTRESS, VSS. UPDATED ORDERS RECEIVED AND NOTED
--- NOTE | 2019-10-25 08:30 | NUR ---
IV insertion IV access obtained, via clean sterile technique by inserting 22 gauge catheter at ANDREW after 1 attempt(s). IV secured properly. No trauma to site. Patient tolerated procedure well.
--- NOTE | 2019-10-25 08:40 | NUR ---
DOBUTAMINE INFUSION STARTED @ 5MCG/KG/MIN PER MD ORDERS. VSS. WILL CONTINUE TO MONITOR.
--- NOTE | 2019-10-25 10:09 | NUR ---
PT TOLERATING DOBUTAMINE INFUSION. IV SITE BENIGN. VSS. WILL CONTINUE TO MONITOR.
[2019-10-25 11:50] VITALS: BP 148/55
--- NOTE | 2019-10-25 11:50 | NUR ---
Discharge Instructions See e-MAR for any mediations given with this visit. Patient education given on disease process. Patient verbalized understanding. Previous labs reviewed. Patient discharged in stable condition with after care instructions and follow up appointment. WILL RETURN ON MONDAY FOR NEXT TREATMENT PER MD ORDERS. NOTE DOBUTAMINE IV [id number] ADMIN BY MARLEN CULVER INR 1.5 DONE BY ANTONELLA LUNA
== END | disposition home or self-care (01) ==
LOC: CHF HDHVI 08:26
PROVIDERS: ATTEND Internal Medicine Cardiovascular Disease
DX: I11.0 Hypertensive heart disease with heart failure (principal); I50.42 Chronic combined systolic (congestive) and diastolic (congestive) heart failure; J43.9 Emphysema, unspecified; R53.83 Other fatigue; I25.10 Atherosclerotic heart disease of native coronary artery without angina pectoris; I48.91 Unspecified atrial fibrillation; I42.8 Other cardiomyopathies; I25.2 Old myocardial infarction; K21.9 Gastro-esophageal reflux disease without esophagitis; E03.9 Hypothyroidism, unspecified; G89.29 Other chronic pain; E78.00 Pure hypercholesterolemia, unspecified; E11.9 Type 2 diabetes mellitus without complications; E43 Unspecified severe protein-calorie malnutrition; M19.90 Unspecified osteoarthritis, unspecified site; Z90.49 Acquired absence of other specified parts of digestive tract; Z79.899 Other long term (current) drug therapy; Z85.810 Personal history of malignant neoplasm of tongue; Z87.891 Personal history of nicotine dependence; Z95.5 Presence of coronary angioplasty implant and graft; Z79.01 Long term (current) use of anticoagulants
CPT/HCPCS: 85610; 96365; 96366; G0463; J1250

== ENCOUNTER → 2019-10-28 | Outpatient (CLI) | payer MEDICARE ==
[2019-10-28] VITALS (9 sets, daily range): BP systolic 103–148; BP diastolic 46–64
[~2019-10-28] VITALS: Ht 30.5 cm; Wt 57.7 kg
[~2019-10-28] MED LIST changes: +CYANOCOBALAMIN (B-12) 1000 MCG/1 ML VIAL IM ONE; +CYANOCOBALAMIN (B-12) 1000 MCG/1 ML VIAL ONE
[2019-10-28 11:57] LABS: Basophils # (auto) 0.1 10 ^3/uL (0-0.2); Basophils % (auto) 1.3 % (0.0-2.0); Eosinophils # (auto) 0.2 10 ^3/uL (0-0.8); Eosinophils % (auto) 3.9 % (0.0-7.0); Hematocrit 30.2 % (41.0-53.0); Hemoglobin 9.9 g/dL (13.5-17.5); Lymphocytes # (auto) 0.5 10 ^3/uL (0.4-5.4); Lymphocytes % (auto) 9.1 % (10.0-50.0); Mean Corpuscular Hemoglobin 29.2 pg (28.0-32.0); Mean Corpuscular Hgb Conc. 32.7 g/dL (32.0-36.0); Mean Corpuscular Volume 89.2 fL (80.0-100.0); Monocytes # (auto) 0.4 10 ^3/uL (0-1.3); Monocytes % (auto) 7.4 % (0.0-12.0); Neutrophils # (auto) 3.9 10 ^3/uL (1.6-8.6); Neutrophils % (auto) 78.3 % (37.0-80.0); Nucleated Red Blood Cells % 0.2 %; Platelet Count (auto) 278 10^3/uL (140-450); Red Blood Cells 3.39 10^6/uL (4.5-5.90); Red Cell Distribution Width 15.1 % (11.8-14.3)
[2019-10-28 12:09] LABS: Potassium 4.2 mmol/L (3.5-5.1)
[2019-10-28 12:17] LABS: BUN/Creatinine Ratio 18.6; Calcium 8.6 mg/dL (8.5-10.1)
== END | disposition home or self-care (01) ==
LOC: CHF HDHVI 08:18
PROVIDERS: ATTEND Internal Medicine Cardiovascular Disease
DX: I11.0 Hypertensive heart disease with heart failure (principal); I50.42 Chronic combined systolic (congestive) and diastolic (congestive) heart failure; D64.9 Anemia, unspecified; I25.10 Atherosclerotic heart disease of native coronary artery without angina pectoris; I48.91 Unspecified atrial fibrillation; I25.2 Old myocardial infarction; I42.8 Other cardiomyopathies; J43.9 Emphysema, unspecified; K21.9 Gastro-esophageal reflux disease without esophagitis; E03.9 Hypothyroidism, unspecified; G89.29 Other chronic pain; E78.00 Pure hypercholesterolemia, unspecified; E11.9 Type 2 diabetes mellitus without complications; M19.90 Unspecified osteoarthritis, unspecified site; E43 Unspecified severe protein-calorie malnutrition; E78.5 Hyperlipidemia, unspecified; J90 Pleural effusion, not elsewhere classified; Z87.891 Personal history of nicotine dependence; Z79.899 Other long term (current) drug therapy; Z95.5 Presence of coronary angioplasty implant and graft; Z85.810 Personal history of malignant neoplasm of tongue; Z90.49 Acquired absence of other specified parts of digestive tract; Z95.1 Presence of aortocoronary bypass graft
CPT/HCPCS: 36415; 80048; 83880; 85025; 96365; 96366; 96372; G0463; J1250; J3420

== ENCOUNTER → 2019-11-01 | Outpatient (CLI) | payer MEDICARE ==
[2019-11-01] VITALS (8 sets, daily range): BP systolic 116–152; BP diastolic 46–82
[~2019-11-01] MED LIST changes: -CYANOCOBALAMIN (B-12) 1000 MCG/1 ML VIAL IM ONE; -CYANOCOBALAMIN (B-12) 1000 MCG/1 ML VIAL ONE
== END | disposition home or self-care (01) ==
LOC: CHF HDHVI 08:16
PROVIDERS: ATTEND Internal Medicine Cardiovascular Disease
DX: I11.0 Hypertensive heart disease with heart failure (principal); I50.42 Chronic combined systolic (congestive) and diastolic (congestive) heart failure; J43.9 Emphysema, unspecified; R53.83 Other fatigue; R06.02 Shortness of breath; I25.2 Old myocardial infarction; I42.8 Other cardiomyopathies; I48.91 Unspecified atrial fibrillation; I27.21 Secondary pulmonary arterial hypertension; K21.9 Gastro-esophageal reflux disease without esophagitis; E78.5 Hyperlipidemia, unspecified; E03.9 Hypothyroidism, unspecified; G89.29 Other chronic pain; J90 Pleural effusion, not elsewhere classified; E78.00 Pure hypercholesterolemia, unspecified; E43 Unspecified severe protein-calorie malnutrition; M19.90 Unspecified osteoarthritis, unspecified site; Z95.810 Presence of automatic (implantable) cardiac defibrillator; Z85.810 Personal history of malignant neoplasm of tongue; Z90.49 Acquired absence of other specified parts of digestive tract; Z95.1 Presence of aortocoronary bypass graft; Z87.891 Personal history of nicotine dependence
CPT/HCPCS: 96365; 96366; G0463; J1250

== ENCOUNTER → 2019-11-04 | Outpatient (CLI) | payer MEDICARE ==
[2019-11-04 08:45] VITALS: BP 134/53
[2019-11-04 12:04] LABS: Basophils # (auto) 0.1 10 ^3/uL (0-0.2); Basophils % (auto) 1.2 % (0.0-2.0); Eosinophils # (auto) 0.2 10 ^3/uL (0-0.8); Eosinophils % (auto) 5.1 % (0.0-7.0); Hematocrit 28.5 % (41.0-53.0); Hemoglobin 9.1 g/dL (13.5-17.5); Lymphocytes # (auto) 0.5 10 ^3/uL (0.4-5.4); Lymphocytes % (auto) 10.9 % (10.0-50.0); Mean Corpuscular Hemoglobin 28.6 pg (28.0-32.0); Mean Corpuscular Volume 89.3 fL (80.0-100.0); Monocytes # (auto) 0.3 10 ^3/uL (0-1.3); Monocytes % (auto) 7.9 % (0.0-12.0); Neutrophils # (auto) 3.3 10 ^3/uL (1.6-8.6); Neutrophils % (auto) 74.9 % (37.0-80.0); Platelet Count (auto) 243 10^3/uL (140-450); Red Blood Cells 3.19 10^6/uL (4.5-5.90); Red Cell Distribution Width 15.8 % (11.8-14.3); White Blood Cell 4.4 10^3/uL (4.4-10.8)
[2019-11-04 12:17] LABS: Calcium 8.2 mg/dL (8.5-10.1); Potassium 4.1 mmol/L (3.5-5.1)
[2019-11-04 12:22] LABS: Albumin 2.8 g/dL (3.4-5.0); BUN/Creatinine Ratio 20.7; Bilirubin, Total 0.7 mg/dL (0.2-1.0); Magnesium 2.6 mg/dL (1.6-2.6); Total Protein 7.2 g/dL (6.4-8.2)
== END | disposition home or self-care (01) ==
LOC: CHF HDHVI 08:07
PROVIDERS: ATTEND Internal Medicine Cardiovascular Disease
DX: I50.9 Heart failure, unspecified (principal); Z79.899 Other long term (current) drug therapy
CPT/HCPCS: 36415; 80053; 83735; 83880; 85025; 96365; 96366; G0463; J1250

== ENCOUNTER → 2019-11-08 | Outpatient (CLI) | payer MEDICARE ==
[2019-11-08] VITALS (9 sets, daily range): BP systolic 125–173; BP diastolic 56–84
[~2019-11-08] MED LIST changes: +DIGO0.12 PO
[2019-11-08 12:03] LABS: Basophils # (auto) 0.1 10 ^3/uL (0-0.2); Basophils % (auto) 1.1 % (0.0-2.0); Eosinophils # (auto) 0.2 10 ^3/uL (0-0.8); Eosinophils % (auto) 3.6 % (0.0-7.0); Hematocrit 28.3 % (41.0-53.0); Hemoglobin 9.2 g/dL (13.5-17.5); Lymphocytes # (auto) 0.4 10 ^3/uL (0.4-5.4); Lymphocytes % (auto) 7.5 % (10.0-50.0); Mean Corpuscular Hemoglobin 28.9 pg (28.0-32.0); Mean Corpuscular Hgb Conc. 32.6 g/dL (32.0-36.0); Mean Corpuscular Volume 88.8 fL (80.0-100.0); Monocytes # (auto) 0.3 10 ^3/uL (0-1.3); Monocytes % (auto) 6.6 % (0.0-12.0); Neutrophils % (auto) 81.2 % (37.0-80.0); Nucleated Red Blood Cells % 0.2 %; Platelet Count (auto) 228 10^3/uL (140-450); Red Blood Cells 3.19 10^6/uL (4.5-5.90); Red Cell Distribution Width 15.3 % (11.8-14.3); White Blood Cell 4.9 10^3/uL (4.4-10.8)
[2019-11-08 12:16] LABS: Magnesium 2.3 mg/dL (1.6-2.6)
== END | disposition home or self-care (01) ==
LOC: CHF HDHVI 08:19
PROVIDERS: ATTEND Internal Medicine Cardiovascular Disease
DX: I11.0 Hypertensive heart disease with heart failure (principal); I50.42 Chronic combined systolic (congestive) and diastolic (congestive) heart failure; I20.9 Angina pectoris, unspecified; I48.91 Unspecified atrial fibrillation; I42.8 Other cardiomyopathies; I25.2 Old myocardial infarction; R07.89 Other chest pain; E11.9 Type 2 diabetes mellitus without complications; J43.9 Emphysema, unspecified; K21.9 Gastro-esophageal reflux disease without esophagitis; E03.9 Hypothyroidism, unspecified; E43 Unspecified severe protein-calorie malnutrition; M19.90 Unspecified osteoarthritis, unspecified site; J90 Pleural effusion, not elsewhere classified; E78.00 Pure hypercholesterolemia, unspecified; Z90.49 Acquired absence of other specified parts of digestive tract; Z79.01 Long term (current) use of anticoagulants; Z85.810 Personal history of malignant neoplasm of tongue; Z87.891 Personal history of nicotine dependence; Z95.1 Presence of aortocoronary bypass graft; Z79.899 Other long term (current) drug therapy; Z95.5 Presence of coronary angioplasty implant and graft
CPT/HCPCS: 36415; 82565; 83735; 83880; 84484; 84520; 85025; 85610; 93005; 96365; 96366; G0463; J1250

== ENCOUNTER → 2019-11-12 | Outpatient (CLI) | payer MEDICARE ==
--- NOTE | 2019-11-12 08:23 | NUR ---
PATIENT CAME IN FOR SCHEDULED INFUSION AND PREOP. PT AAOX4, AMBULATORY, BREATHING EVEN AND UNLABORED. PATIENT STATES HE STOPPED TAKING HIS COUMADIN ON MONDAY.
--- NOTE | 2019-11-12 08:35 | NUR ---
IV insertion IV access obtained, via clean sterile technique by inserting 22 gauge catheter at LFA after 1 attempt(s). IV secured properly. No trauma to site. Patient tolerated procedure well. BLOOD DRAWN AND SENT TO LAB.
[2019-11-12 08:41] VITALS: BP 107/44
--- NOTE | 2019-11-12 09:00 | NUR ---
PATIENT TAKEN FOR CXRAY
[2019-11-12 09:15] VITALS: BP 107/42
[2019-11-12 09:30] VITALS: BP 123/57
[2019-11-12 10:00] VITALS: BP 118/61
--- NOTE | 2019-11-12 10:00 | NUR ---
PATIENT TALKING WITH OTHER PATIENTS, DENIES ANY SOB/PAIN, WILL CONTINUE TO MONITOR.
[2019-11-12 10:30] VITALS: BP 138/70
--- NOTE | 2019-11-12 11:00 | NUR ---
IV removal IV DC'd with sterile technique, catheter fully intact. Pressure dressing applied to site. Patient tolerated procedure well.
[2019-11-12 11:03] VITALS: BP 145/72
--- NOTE | 2019-11-12 11:03 | NUR ---
CHF CLINIC Discharge Instructions See e-MAR for any mediations given with this visit. Patient education given on disease process. Patient verbalized understanding. Previous labs reviewed. Patient discharged in stable condition with after care instructions and follow up appointment. NOTE DOBUTAMINE [id number] ADMIN BY ARIK CULVER. PREOP COMPLETED AND PT SENT TO HOSPITAL TO COMPLETE PREREGISTRATION.
[2019-11-12 11:59] LABS: Basophils # (auto) 0 10 ^3/uL (0-0.2); Basophils % (auto) 1.1 % (0.0-2.0); Eosinophils # (auto) 0.2 10 ^3/uL (0-0.8); Eosinophils % (auto) 4.4 % (0.0-7.0); Hematocrit 27.6 % (41.0-53.0); Lymphocytes # (auto) 0.4 10 ^3/uL (0.4-5.4); Lymphocytes % (auto) 9.5 % (10.0-50.0); Mean Corpuscular Hgb Conc. 32.5 g/dL (32.0-36.0); Mean Corpuscular Volume 89.4 fL (80.0-100.0); Monocytes # (auto) 0.3 10 ^3/uL (0-1.3); Neutrophils # (auto) 3.3 10 ^3/uL (1.6-8.6); Platelet Count (auto) 239 10^3/uL (140-450); Red Blood Cells 3.09 10^6/uL (4.5-5.90); Red Cell Distribution Width 15.4 % (11.8-14.3); White Blood Cell 4.2 10^3/uL (4.4-10.8)
[2019-11-12 12:10] LABS: INR 2.45 (0.9-1.15); Partial Thromboplastin Time 53.8 sec (23.64-32.05)
[2019-11-12 12:16] LABS: Potassium 4.2 mmol/L (3.5-5.1)
[2019-11-12 12:22] LABS: BUN/Creatinine Ratio 22.1; Calcium 8.1 mg/dL (8.5-10.1)
== END | disposition home or self-care (01) ==
LOC: CHF HDHVI 08:31
PROVIDERS: ATTEND Internal Medicine Cardiovascular Disease
DX: I11.0 Hypertensive heart disease with heart failure (principal); I50.9 Heart failure, unspecified; I48.91 Unspecified atrial fibrillation; R06.02 Shortness of breath; I50.42 Chronic combined systolic (congestive) and diastolic (congestive) heart failure; J43.9 Emphysema, unspecified; K21.9 Gastro-esophageal reflux disease without esophagitis; E78.5 Hyperlipidemia, unspecified; E03.9 Hypothyroidism, unspecified; I25.2 Old myocardial infarction; E78.00 Pure hypercholesterolemia, unspecified; M19.90 Unspecified osteoarthritis, unspecified site; I25.10 Atherosclerotic heart disease of native coronary artery without angina pectoris; E11.9 Type 2 diabetes mellitus without complications; Z79.899 Other long term (current) drug therapy; Z87.891 Personal history of nicotine dependence; Z90.49 Acquired absence of other specified parts of digestive tract; Z79.01 Long term (current) use of anticoagulants; Z95.5 Presence of coronary angioplasty implant and graft
CPT/HCPCS: 36415; 71046; 80048; 85025; 85610; 85730; 96365; 96366; G0463; J1250

== ENCOUNTER 2019-11-14 09:02 | Day surgery (SDC) | payer MEDICARE ==
[~2019-11-14] VITALS: Ht 177.8 cm; Wt 59.4 kg
[~2019-11-14 09:02] MED LIST changes: -ATOR20TA PO; -DOBUTamine 1000MCG/ML 250 ML IV ONE; -ENAL2.5T2 PO; -POT20T PO
[2019-11-14] MEDS ORDERED: fentaNYL CITRATE 100 MCG/2 ML VL ONE (09:52)
[2019-11-14] MEDS ORDERED: MIDAZOLAM HCL 1MG/1ML-2 ML VIAL ONE (09:52)
[2019-11-14] MEDS ORDERED: ANGIOMAX 250 MG VIAL IV ONE (09:52)
[2019-11-14] MEDS ORDERED: IOHEXOL 350 MG/ML 100ML IJ ONE (09:53)
[2019-11-14] MEDS ORDERED: LIDOCAINE 2%HCL (LOCAL ANESTH.) INJ 20ML MDV ONE (09:53)
[2019-11-14] MEDS ORDERED: SODIUM CHL 0.9% 0 ML ONE (09:53)
[2019-11-14 10:09] LABS: INR 2.14 (0.9-1.15); Partial Thromboplastin Time 48.4 sec (23.64-32.05)
[2019-11-14] MEDS ORDERED: PHYTONADIONE (VIT K)10 MG/ML 1ML VIAL IV ONE (10:30)
[2019-11-14] MEDS ORDERED: PHYTONADIONE IV ONE (10:30)
[2019-11-14] MEDS ORDERED: SODIUM CHL 0.9% IV ONE (10:30)
== END 2019-11-14 13:22 | disposition home or self-care (01) ==
LOC: CATH 09:02
PROVIDERS: ATTEND Internal Medicine Cardiovascular Disease
DX: I25.810 Atherosclerosis of coronary artery bypass graft(s) without angina pectoris (principal); J44.9 Chronic obstructive pulmonary disease, unspecified; I25.2 Old myocardial infarction; I11.0 Hypertensive heart disease with heart failure; Z98.890 Other specified postprocedural states; Z79.899 Other long term (current) drug therapy; Z11.59 Encounter for screening for other viral diseases; Z95.1 Presence of aortocoronary bypass graft
CPT/HCPCS: 36415; 85610; 85730; 93459; C1760; C1894; J1644; J2250; J3010; J3430; J7030; Q9967; U0003; 99152

== ENCOUNTER → 2019-11-15 | Outpatient (CLI) | payer MEDICARE ==
[~2019-11-15] MED LIST changes: +IOHEXOL 350 MG/ML 100ML IJ ONE
== END | disposition home or self-care (01) ==
LOC: Rad HDHVI 12:19
PROVIDERS: ATTEND Internal Medicine Cardiovascular Disease
DX: J98.11 Atelectasis (principal); R91.8 Other nonspecific abnormal finding of lung field; I25.10 Atherosclerotic heart disease of native coronary artery without angina pectoris; M46.09 Spinal enthesopathy, multiple sites in spine; J90 Pleural effusion, not elsewhere classified; R06.00 Dyspnea, unspecified; Z95.1 Presence of aortocoronary bypass graft
CPT/HCPCS: 71260; Q9967

== ENCOUNTER → 2019-11-15 | Outpatient (CLI) | payer MEDICARE ==
[~2019-11-15] MED LIST changes: +CYANOCOBALAMIN (B-12) 1000 MCG/1 ML VIAL IM ONE; +CYANOCOBALAMIN (B-12) 1000 MCG/1 ML VIAL ONE; +DOBUTamine 1000MCG/ML 250 ML IV ONE; -IOHEXOL 350 MG/ML 100ML IJ ONE
[2019-11-15 08:54] VITALS: BP 135/66
[2019-11-15 09:15] VITALS: BP 151/61
[2019-11-15 09:30] VITALS: BP 142/58
[2019-11-15 09:45] VITALS: BP 127/58
[2019-11-15 09:54] LABS: BUN/Creatinine Ratio 21.3; Calcium 8.3 mg/dL (8.5-10.1)
[2019-11-15 10:15] VITALS: BP 151/70
[2019-11-15 12:13] LABS: Basophils # (auto) 0.1 10 ^3/uL (0-0.2); Basophils % (auto) 1.3 % (0.0-2.0); Eosinophils # (auto) 0.2 10 ^3/uL (0-0.8); Eosinophils % (auto) 3.7 % (0.0-7.0); Hematocrit 28.2 % (41.0-53.0); Lymphocytes # (auto) 0.5 10 ^3/uL (0.4-5.4); Lymphocytes % (auto) 10.5 % (10.0-50.0); Mean Corpuscular Hemoglobin 28.5 pg (28.0-32.0); Monocytes # (auto) 0.3 10 ^3/uL (0-1.3); Neutrophils # (auto) 3.7 10 ^3/uL (1.6-8.6); Neutrophils % (auto) 77.5 % (37.0-80.0); Nucleated Red Blood Cells % 0.2 %; Platelet Count (auto) 271 10^3/uL (140-450); Red Blood Cells 3.17 10^6/uL (4.5-5.90); Red Cell Distribution Width 15.2 % (11.8-14.3); White Blood Cell 4.8 10^3/uL (4.4-10.8)
[2019-11-15 12:41] VITALS: BP 160/79
== END | disposition home or self-care (01) ==
LOC: CHF HDHVI 08:11
PROVIDERS: ATTEND Internal Medicine Cardiovascular Disease
DX: I11.0 Hypertensive heart disease with heart failure (principal); I50.42 Chronic combined systolic (congestive) and diastolic (congestive) heart failure; I48.91 Unspecified atrial fibrillation; I25.10 Atherosclerotic heart disease of native coronary artery without angina pectoris; I27.21 Secondary pulmonary arterial hypertension; I25.2 Old myocardial infarction; I42.8 Other cardiomyopathies; J90 Pleural effusion, not elsewhere classified; J43.9 Emphysema, unspecified; K21.9 Gastro-esophageal reflux disease without esophagitis; E78.5 Hyperlipidemia, unspecified; E03.9 Hypothyroidism, unspecified; E78.00 Pure hypercholesterolemia, unspecified; E11.9 Type 2 diabetes mellitus without complications; M19.90 Unspecified osteoarthritis, unspecified site; G89.29 Other chronic pain; E43 Unspecified severe protein-calorie malnutrition; Z79.01 Long term (current) use of anticoagulants; Z95.810 Presence of automatic (implantable) cardiac defibrillator; Z90.49 Acquired absence of other specified parts of digestive tract; Z95.5 Presence of coronary angioplasty implant and graft; Z95.1 Presence of aortocoronary bypass graft; Z79.899 Other long term (current) drug therapy; Z87.891 Personal history of nicotine dependence
CPT/HCPCS: 36415; 71260; 80048; 83880; 85025; 96365; 96366; 96372; G0463; J1250; J3420; Q9967

== ENCOUNTER → 2019-11-18 | Outpatient (CLI) | payer MEDICARE ==
[2019-11-18] VITALS (9 sets, daily range): BP systolic 117–163; BP diastolic 60–76
[~2019-11-18] MED LIST changes: -CYANOCOBALAMIN (B-12) 1000 MCG/1 ML VIAL IM ONE; -CYANOCOBALAMIN (B-12) 1000 MCG/1 ML VIAL ONE
== END | disposition home or self-care (01) ==
LOC: CHF HDHVI 08:11
PROVIDERS: ATTEND Internal Medicine Cardiovascular Disease
DX: I11.0 Hypertensive heart disease with heart failure (principal); I50.42 Chronic combined systolic (congestive) and diastolic (congestive) heart failure; R53.83 Other fatigue; I48.91 Unspecified atrial fibrillation; I25.10 Atherosclerotic heart disease of native coronary artery without angina pectoris; I27.21 Secondary pulmonary arterial hypertension; I42.8 Other cardiomyopathies; I25.2 Old myocardial infarction; J43.9 Emphysema, unspecified; K21.9 Gastro-esophageal reflux disease without esophagitis; E78.5 Hyperlipidemia, unspecified; E03.9 Hypothyroidism, unspecified; G89.29 Other chronic pain; J90 Pleural effusion, not elsewhere classified; E78.00 Pure hypercholesterolemia, unspecified; E11.9 Type 2 diabetes mellitus without complications; M19.90 Unspecified osteoarthritis, unspecified site; Z79.899 Other long term (current) drug therapy; Z87.891 Personal history of nicotine dependence; Z90.49 Acquired absence of other specified parts of digestive tract; Z95.5 Presence of coronary angioplasty implant and graft; Z95.810 Presence of automatic (implantable) cardiac defibrillator; Z79.01 Long term (current) use of anticoagulants
CPT/HCPCS: 85610; 96365; 96366; G0463; J1250

== ENCOUNTER → 2019-11-22 | Outpatient (CLI) | payer MEDICARE ==
[~2019-11-22] VITALS: Ht 30.5 cm; Wt 57.4 kg
[2019-11-22] VITALS (10 sets, daily range): BP systolic 94–134; BP diastolic 46–62
== END | disposition home or self-care (01) ==
LOC: CHF HDHVI 08:02
PROVIDERS: ATTEND Internal Medicine Cardiovascular Disease
DX: I11.0 Hypertensive heart disease with heart failure (principal); I50.42 Chronic combined systolic (congestive) and diastolic (congestive) heart failure; I25.10 Atherosclerotic heart disease of native coronary artery without angina pectoris; K21.9 Gastro-esophageal reflux disease without esophagitis; E03.9 Hypothyroidism, unspecified; I25.2 Old myocardial infarction; E11.9 Type 2 diabetes mellitus without complications; I48.91 Unspecified atrial fibrillation; M19.90 Unspecified osteoarthritis, unspecified site; J44.9 Chronic obstructive pulmonary disease, unspecified; E78.00 Pure hypercholesterolemia, unspecified; Z79.899 Other long term (current) drug therapy; Z90.49 Acquired absence of other specified parts of digestive tract; Z79.01 Long term (current) use of anticoagulants; Z87.891 Personal history of nicotine dependence; Z95.810 Presence of automatic (implantable) cardiac defibrillator; Z95.1 Presence of aortocoronary bypass graft; Z85.810 Personal history of malignant neoplasm of tongue
CPT/HCPCS: 85610; 96365; 96366; G0463; J1250

== ENCOUNTER → 2019-11-25 | Outpatient (CLI) | payer MEDICARE ==
[2019-11-25] VITALS (9 sets, daily range): BP systolic 102–156; BP diastolic 44–69
[2019-11-25 12:20] LABS: Basophils # (auto) 0 10 ^3/uL (0-0.2); Basophils % (auto) 1.4 % (0.0-2.0); Eosinophils # (auto) 0.2 10 ^3/uL (0-0.8); Eosinophils % (auto) 5.8 % (0.0-7.0); Hemoglobin 9.5 g/dL (13.5-17.5); Lymphocytes # (auto) 0.3 10 ^3/uL (0.4-5.4); Lymphocytes % (auto) 7.8 % (10.0-50.0); Mean Corpuscular Hemoglobin 29.3 pg (28.0-32.0); Mean Corpuscular Hgb Conc. 32.9 g/dL (32.0-36.0); Mean Corpuscular Volume 88.9 fL (80.0-100.0); Monocytes # (auto) 0.2 10 ^3/uL (0-1.3); Monocytes % (auto) 5.1 % (0.0-12.0); Neutrophils # (auto) 2.9 10 ^3/uL (1.6-8.6); Neutrophils % (auto) 79.9 % (37.0-80.0); Platelet Count (auto) 256 10^3/uL (140-450); Red Blood Cells 3.26 10^6/uL (4.5-5.90); Red Cell Distribution Width 15.5 % (11.8-14.3); White Blood Cell 3.6 10^3/uL (4.4-10.8)
[2019-11-25 12:30] LABS: BUN/Creatinine Ratio 16.4; Calcium 8.3 mg/dL (8.5-10.1); Magnesium 2.4 mg/dL (1.6-2.6); Potassium 4.1 mmol/L (3.5-5.1)
== END | disposition home or self-care (01) ==
LOC: CHF HDHVI 08:18
PROVIDERS: ATTEND Internal Medicine Cardiovascular Disease
DX: I11.0 Hypertensive heart disease with heart failure (principal); I50.42 Chronic combined systolic (congestive) and diastolic (congestive) heart failure; I48.91 Unspecified atrial fibrillation; I25.2 Old myocardial infarction; I42.8 Other cardiomyopathies; R53.83 Other fatigue; K21.9 Gastro-esophageal reflux disease without esophagitis; J43.9 Emphysema, unspecified; E03.9 Hypothyroidism, unspecified; E78.00 Pure hypercholesterolemia, unspecified; E43 Unspecified severe protein-calorie malnutrition; Z85.810 Personal history of malignant neoplasm of tongue; Z79.899 Other long term (current) drug therapy; Z95.810 Presence of automatic (implantable) cardiac defibrillator; Z95.5 Presence of coronary angioplasty implant and graft; Z87.891 Personal history of nicotine dependence; Z79.01 Long term (current) use of anticoagulants; Z90.49 Acquired absence of other specified parts of digestive tract; Z95.1 Presence of aortocoronary bypass graft
CPT/HCPCS: 36415; 80048; 83735; 83880; 85025; 96365; 96366; G0463; J1250

== ENCOUNTER → 2019-11-29 | Outpatient (CLI) | payer MEDICARE ==
[2019-11-29 08:26] VITALS: BP 137/57
[2019-11-29 08:45] VITALS: BP 128/79
[2019-11-29 09:00] VITALS: BP 128/58
[2019-11-29 09:15] VITALS: BP 132/62
[2019-11-29 11:59] VITALS: BP 127/63
== END | disposition home or self-care (01) ==
LOC: CHF HDHVI 08:18
PROVIDERS: ATTEND Internal Medicine Cardiovascular Disease
DX: I11.0 Hypertensive heart disease with heart failure (principal); I50.42 Chronic combined systolic (congestive) and diastolic (congestive) heart failure; I25.10 Atherosclerotic heart disease of native coronary artery without angina pectoris; I48.91 Unspecified atrial fibrillation; I25.2 Old myocardial infarction; I42.8 Other cardiomyopathies; I27.21 Secondary pulmonary arterial hypertension; J43.9 Emphysema, unspecified; E03.9 Hypothyroidism, unspecified; E78.00 Pure hypercholesterolemia, unspecified; R53.83 Other fatigue; K21.9 Gastro-esophageal reflux disease without esophagitis; E43 Unspecified severe protein-calorie malnutrition; E11.9 Type 2 diabetes mellitus without complications; E78.5 Hyperlipidemia, unspecified; M19.90 Unspecified osteoarthritis, unspecified site; Z79.899 Other long term (current) drug therapy; Z85.810 Personal history of malignant neoplasm of tongue; Z87.891 Personal history of nicotine dependence; Z95.1 Presence of aortocoronary bypass graft; Z95.810 Presence of automatic (implantable) cardiac defibrillator; Z95.5 Presence of coronary angioplasty implant and graft; Z90.49 Acquired absence of other specified parts of digestive tract; Z79.01 Long term (current) use of anticoagulants
CPT/HCPCS: 85610; 96365; 96366; G0463; J1250

== ENCOUNTER → 2019-12-02 | Outpatient (CLI) | payer MEDICARE ==
[2019-12-02] VITALS (8 sets, daily range): BP systolic 124–168; BP diastolic 54–87
[2019-12-02 09:05] LABS: Basophils # (auto) 0.1 10 ^3/uL (0-0.2); Basophils % (auto) 1.9 % (0.0-2.0); Eosinophils # (auto) 0.3 10 ^3/uL (0-0.8); Eosinophils % (auto) 6.8 % (0.0-7.0); Hematocrit 30.7 % (41.0-53.0); Hemoglobin 9.9 g/dL (13.5-17.5); Lymphocytes # (auto) 0.5 10 ^3/uL (0.4-5.4); Lymphocytes % (auto) 13.5 % (10.0-50.0); Mean Corpuscular Hemoglobin 28.6 pg (28.0-32.0); Mean Corpuscular Hgb Conc. 32.3 g/dL (32.0-36.0); Mean Corpuscular Volume 88.6 fL (80.0-100.0); Monocytes # (auto) 0.3 10 ^3/uL (0-1.3); Monocytes % (auto) 8.2 % (0.0-12.0); Neutrophils # (auto) 2.6 10 ^3/uL (1.6-8.6); Neutrophils % (auto) 69.6 % (37.0-80.0); Nucleated Red Blood Cells % 0.2 %; Platelet Count (auto) 220 10^3/uL (140-450); Red Blood Cells 3.46 10^6/uL (4.5-5.90); Red Cell Distribution Width 15.3 % (11.8-14.3); White Blood Cell 3.8 10^3/uL (4.4-10.8)
[2019-12-02 09:17] LABS: Potassium 4.3 mmol/L (3.5-5.1)
== END | disposition home or self-care (01) ==
LOC: CHF HDHVI 08:15
PROVIDERS: ATTEND Internal Medicine Cardiovascular Disease
DX: I11.0 Hypertensive heart disease with heart failure (principal); I50.42 Chronic combined systolic (congestive) and diastolic (congestive) heart failure; J43.9 Emphysema, unspecified; I25.10 Atherosclerotic heart disease of native coronary artery without angina pectoris; I25.2 Old myocardial infarction; I42.8 Other cardiomyopathies; R53.83 Other fatigue; K21.9 Gastro-esophageal reflux disease without esophagitis; E78.5 Hyperlipidemia, unspecified; E03.9 Hypothyroidism, unspecified; E78.00 Pure hypercholesterolemia, unspecified; I27.21 Secondary pulmonary arterial hypertension; E11.9 Type 2 diabetes mellitus without complications; I48.91 Unspecified atrial fibrillation; G89.29 Other chronic pain; Z85.810 Personal history of malignant neoplasm of tongue; Z87.891 Personal history of nicotine dependence; Z95.1 Presence of aortocoronary bypass graft; Z95.810 Presence of automatic (implantable) cardiac defibrillator; Z95.5 Presence of coronary angioplasty implant and graft; Z79.899 Other long term (current) drug therapy; Z79.01 Long term (current) use of anticoagulants
CPT/HCPCS: 36415; 82565; 83880; 84132; 84520; 85025; 96365; 96366; G0463; J1250

== ENCOUNTER → 2019-12-06 | Outpatient (CLI) | payer MEDICARE ==
[2019-12-06] VITALS (11 sets, daily range): BP systolic 114–172; BP diastolic 58–77
--- NOTE | 2019-12-06 08:30 | NUR ---
PT ARRIVED TO CHF CLINIC PT ARRIVED TO CLINIC FOR TX AND EVALUATION. PT IS ALERT AND AWAKE WITH EVEN AND UNLABORED RESPIRATIONS. PT C/O OF SOB WITH EXERTION AND FATIGUE. WILL CARRY OUT MD ORDERS. WILL CONTINUE TO MONITOR.
--- NOTE | 2019-12-06 08:45 | NUR ---
IV insertion IV access obtained BY MITCH CULVER, via clean sterile technique by inserting [22] gauge catheter at [ANDREW] after [1] attempt(s). IV secured properly. No trauma to site. Patient tolerated procedure well. Will start Ordered IV medication.
--- NOTE | 2019-12-06 10:35 | NUR ---
ELEVATED BLOOD PRESSURE PT'S BLOOD PRESSURE IS ELEVATED TO 172/77. IV INFUSION PAUSED AT THIS TIME PENDING BP. PT ASYMPTOMATIC, PT IS ALERT AND AWAKE WITH EVEN AND UNLABORED RESPIRATIONS. NO S/S OF DISTRESS/SOB OR PAIN NOTED. ALL OTHER VITALS WNL. WILL CONTINUE TO MONITOR.
--- NOTE | 2019-12-06 11:30 | NUR ---
BP RECHECKED PTS BP RETURNING TO NORMAL. NOW 158/77 HR 70. ALL OTHER VITALS WNL. PT ALERT AND AWAKE WITH NO S/S OF DISTRESS/SOB. WILL CONTINUE TO MONITOR.
--- NOTE | 2019-12-06 12:00 | NUR ---
BP REASSESSED AGAIN BP REASSESSED AGAIN. BP NOW 147/68 HR 70. PT STABLE AND BP RETURNED TO NORMAL. WILL CARRY OUT D/C.
--- NOTE | 2019-12-06 12:05 | NUR ---
IV removal IV DC'd BY THIS RN with clean sterile technique, catheter fully intact. Pressure dressing applied to site. Patient tolerated well.
--- NOTE | 2019-12-06 12:12 | NUR ---
CHF CLINIC Discharge Instructions See e-MAR for any mediations given with this visit. Patient education given on disease process. Patient verbalized understanding. Previous labs reviewed. Patient discharged in stable condition with after care instructions and follow up appointment. NOTES DOBUTAMINE IV [id number] ADMIN BY MITCH CULVER INR CHECK, 2.2, PT EDUCATED TO CONTINUE CURRENT REGIMEN OF WARFARIN 6 MG QD. PT WILL RETURN TO MONTHLY CHECKS. PT VERBALIZED UNDERSTANDING.
== END | disposition home or self-care (01) ==
LOC: CHF HDHVI 08:30
PROVIDERS: ATTEND Internal Medicine Cardiovascular Disease
DX: I11.0 Hypertensive heart disease with heart failure (principal); I50.42 Chronic combined systolic (congestive) and diastolic (congestive) heart failure; I25.10 Atherosclerotic heart disease of native coronary artery without angina pectoris; I48.91 Unspecified atrial fibrillation; I27.21 Secondary pulmonary arterial hypertension; I25.2 Old myocardial infarction; I42.8 Other cardiomyopathies; J43.9 Emphysema, unspecified; K21.9 Gastro-esophageal reflux disease without esophagitis; E78.5 Hyperlipidemia, unspecified; E03.9 Hypothyroidism, unspecified; G89.29 Other chronic pain; R53.83 Other fatigue; E78.00 Pure hypercholesterolemia, unspecified; M19.90 Unspecified osteoarthritis, unspecified site; E11.9 Type 2 diabetes mellitus without complications; E43 Unspecified severe protein-calorie malnutrition; J90 Pleural effusion, not elsewhere classified; Z85.810 Personal history of malignant neoplasm of tongue; Z95.810 Presence of automatic (implantable) cardiac defibrillator; Z95.5 Presence of coronary angioplasty implant and graft; Z90.49 Acquired absence of other specified parts of digestive tract; Z79.899 Other long term (current) drug therapy; Z87.891 Personal history of nicotine dependence
CPT/HCPCS: 85610; 96365; 96366; G0463; J1250

== ENCOUNTER → 2019-12-13 | Outpatient (CLI) | payer MEDICARE ==
[2019-12-13] VITALS (9 sets, daily range): BP systolic 101–167; BP diastolic 40–80
[~2019-12-13] VITALS: Ht 30.5 cm; Wt 57.8 kg
--- NOTE | 2019-12-13 08:05 | NUR ---
CLINIC PT ARRIVED TO THE CHF CLINIC FOR WEEKLY EVAL AD TX PER MD ORDERS. A/OX4, AMBULATORY
--- NOTE | 2019-12-13 08:20 | NUR ---
IV insertion IV access obtained, via clean sterile technique by inserting 22 gauge catheter at after 1 attempt(s). IV secured properly. No trauma to site. Patient tolerated procedure well. LABS DRAWN AND SENT NOTE INSERTED BY SLOANE CULVER
--- NOTE | 2019-12-13 08:24 | NUR ---
DOBUTAMINE IV STARTED @ 3 MCG/KG/MIN PER MD ORDERS. VSS. WILL CONTINUE TO MONITOR.
--- NOTE | 2019-12-13 09:44 | NUR ---
PT TOLERATING DOBUTAMINE INFUSION. IV SITE BENIGN. VSS. WILL CONTINUE TO MONITOR.
--- NOTE | 2019-12-13 11:15 | NUR ---
DOBUTAMINE STOPPED PER MD ORDERS B/P 167/80. PT IS A/OX4 AND TALKING WITH OTHER PT. WILL CONTINUE TO MONITOR
--- NOTE | 2019-12-13 11:37 | NUR ---
Discharge Instructions See e-MAR for any mediations given with this visit. Patient education given on disease process. Patient verbalized understanding. Previous labs reviewed. Patient discharged in stable condition with after care instructions and follow up appointment. PT TO RETURN TO CLINIC ON MONDAY FOR EVAL AND TX PER MD ORDER. PT REQUESTED A REPLACEMENT FOR MED NEB MACHINE, PT IS O2 DEPENDANT UPON EXERTION WITH HX OF COPD, PULMONARY HTN AND CHF. P TWILL BE PUT ON PERFORMIST ONCE DAILY. IS IS CURRENTLY USING ALBUTEROL. PRESCRIPTION SENT TO [facility]. NEW MED NEB MACHINE WAS DELIVERED AND SENT HOME WITH THE PT TODAY WITH INSTRUCTIONS FOR USE. PT VERBALIZED UNDERSTANDING. NOTE DOBUTAMINE IV [id number] ADMIN BY MITCH CULVER
[2019-12-13 11:55] LABS: Basophils # (auto) 0.1 10 ^3/uL (0-0.2); Basophils % (auto) 1.3 % (0.0-2.0); Eosinophils # (auto) 0.3 10 ^3/uL (0-0.8); Eosinophils % (auto) 6.7 % (0.0-7.0); Hematocrit 29.7 % (41.0-53.0); Hemoglobin 9.6 g/dL (13.5-17.5); Lymphocytes # (auto) 0.5 10 ^3/uL (0.4-5.4); Lymphocytes % (auto) 12.9 % (10.0-50.0); Mean Corpuscular Hemoglobin 28.7 pg (28.0-32.0); Mean Corpuscular Hgb Conc. 32.3 g/dL (32.0-36.0); Mean Corpuscular Volume 88.9 fL (80.0-100.0); Monocytes # (auto) 0.3 10 ^3/uL (0-1.3); Neutrophils # (auto) 2.9 10 ^3/uL (1.6-8.6); Neutrophils % (auto) 71.1 % (37.0-80.0); Platelet Count (auto) 241 10^3/uL (140-450); Red Blood Cells 3.34 10^6/uL (4.5-5.90); Red Cell Distribution Width 15.5 % (11.8-14.3); White Blood Cell 4.1 10^3/uL (4.4-10.8)
[2019-12-13 12:04] LABS: Calcium 8.5 mg/dL (8.5-10.1); Magnesium 2.4 mg/dL (1.6-2.6); Potassium 4.1 mmol/L (3.5-5.1)
[2019-12-13 12:06] LABS: BUN/Creatinine Ratio 20.8
== END | disposition home or self-care (01) ==
LOC: CHF HDHVI 08:15
PROVIDERS: ATTEND Internal Medicine Cardiovascular Disease
DX: I11.0 Hypertensive heart disease with heart failure (principal); I50.23 Acute on chronic systolic (congestive) heart failure; D64.9 Anemia, unspecified; E83.40 Disorders of magnesium metabolism, unspecified; R06.02 Shortness of breath; R53.83 Other fatigue; I25.10 Atherosclerotic heart disease of native coronary artery without angina pectoris; I48.91 Unspecified atrial fibrillation; I25.2 Old myocardial infarction; I42.8 Other cardiomyopathies; J43.9 Emphysema, unspecified; K21.9 Gastro-esophageal reflux disease without esophagitis; E03.9 Hypothyroidism, unspecified; G89.29 Other chronic pain; J90 Pleural effusion, not elsewhere classified; E78.00 Pure hypercholesterolemia, unspecified; E11.9 Type 2 diabetes mellitus without complications; M19.90 Unspecified osteoarthritis, unspecified site; E43 Unspecified severe protein-calorie malnutrition; Z79.01 Long term (current) use of anticoagulants; Z79.899 Other long term (current) drug therapy; Z85.810 Personal history of malignant neoplasm of tongue; Z95.810 Presence of automatic (implantable) cardiac defibrillator; Z95.5 Presence of coronary angioplasty implant and graft; Z90.49 Acquired absence of other specified parts of digestive tract; Z87.891 Personal history of nicotine dependence
CPT/HCPCS: 36415; 80048; 83735; 83880; 85025; 96365; 96366; G0463; J1250

== ENCOUNTER → 2019-12-16 | Outpatient (CLI) | payer MEDICARE ==
[~2019-12-16] VITALS: Ht 30.5 cm; Wt 57.2 kg
[~2019-12-16] MED LIST changes: +CARVEDILOL 3.125 MG TAB ONE; +CARVEDILOL 3.125 MG TAB PO ONE
--- NOTE | 2019-12-16 08:00 | NUR ---
CLINIC PT ARRIVED TO THE CHF CLINIC FOR WEEKLY EVAL AND TX. A/OX4, AMBULATORY. PT STATED HE FORGOT TO TAKE ALL HIS HOME MEDS THIS MORNING INCLUDING HIS B/P MEDICATION. ON ARRIVAL PT BP WAS 162/80. PER MD SAMPLE OF [place] , HOME DOSE WAS GIVEN TO PT. WILL CONTINUE TO MONITOR Q30 MIN FOR B/P REDUCTION PRIOR TO STARTED PT ON DOBUTAMINE PER MD ORDER.
[2019-12-16 08:45] VITALS: BP 153/66
[2019-12-16 09:30] VITALS: BP 169/74
[2019-12-16 10:00] VITALS: BP 179/84
--- NOTE | 2019-12-16 10:10 | NUR ---
MD at bedside. MD at bedside for evaluation and treatment for acute episode. Further orders received and carried out. SEE EMAR
--- NOTE | 2019-12-16 11:55 | NUR ---
MED REC DONE WITH PT BY SLOANE CULVER
[2019-12-16 12:10] VITALS: BP 153/82
--- NOTE | 2019-12-16 12:10 | NUR ---
Discharge Instructions See e-MAR for any mediations given with this visit. Patient education given on disease process. Patient verbalized understanding. Previous labs reviewed. Patient discharged in stable condition with after care instructions and follow up appointment. ON MON. PT EDUCATED ON THE IMPORTANCE OF FOLLOWING HIS MEDICATION REGIMEN. PT VERBALIZED UNDERSTANDING
== END | disposition home or self-care (01) ==
LOC: CHF HDHVI 08:03
PROVIDERS: ATTEND Internal Medicine Cardiovascular Disease
DX: I50.9 Heart failure, unspecified (principal)
CPT/HCPCS: G0463; J1250

== ENCOUNTER → 2019-12-18 | Outpatient (CLI) | payer MEDICARE ==
[~2019-12-18] VITALS: Ht 30.5 cm; Wt 56.8 kg
[2019-12-18] VITALS (9 sets, daily range): BP systolic 79–158; BP diastolic 42–76
[~2019-12-18] MED LIST changes: -CARVEDILOL 3.125 MG TAB ONE; -CARVEDILOL 3.125 MG TAB PO ONE; +CYANOCOBALAMIN (B-12) 1000 MCG/1 ML VIAL IM ONE; +CYANOCOBALAMIN (B-12) 1000 MCG/1 ML VIAL ONE; +SODIUM CHLORIDE 0.9% 250 ML IV ONE
--- NOTE | 2019-12-18 08:10 | NUR ---
CLINIC PT ARRIVED TO THE CHF CLINIC FOR WEEKLY EVAL AND TX. A/OX4, AMBULATORY. PT HAS C/O INCREASED SOB. ON ASSESSMENT O2 SATS 88%. PT PLACED ON 2L O2 N/C. O2 INCREASED TO 94%
--- NOTE | 2019-12-18 08:36 | NUR ---
B/P TAKEN PRIOR TO MD ORDERED DOBUTAMINE INFUSION 79/42.
--- NOTE | 2019-12-18 08:37 | NUR ---
MD at bedside. MD at bedside for evaluation and treatment for acute episode OF B/P 79/42. Further orders received and carried out.
--- NOTE | 2019-12-18 08:40 | NUR ---
NS STARTED @ 250ML/HR PER MD ORDERS.
--- NOTE | 2019-12-18 09:21 | NUR ---
B/P 124/52 DOBUTAMINE INFUSION STARTED PER MD ORDER
--- NOTE | 2019-12-18 11:01 | NUR ---
PT TOLERATING DOBUTAMINE INFUSION. IV SITE BENIGN. VSS. WILL CONTINUE TO MONITOR
[2019-12-18 11:59] LABS: Basophils # (auto) 0 10 ^3/uL (0-0.2); Basophils % (auto) 0.9 % (0.0-2.0); Eosinophils # (auto) 0.2 10 ^3/uL (0-0.8); Eosinophils % (auto) 4.7 % (0.0-7.0); Hematocrit 31.5 % (41.0-53.0); Hemoglobin 10.4 g/dL (13.5-17.5); Lymphocytes # (auto) 0.6 10 ^3/uL (0.4-5.4); Lymphocytes % (auto) 12.6 % (10.0-50.0); Mean Corpuscular Hemoglobin 29.2 pg (28.0-32.0); Mean Corpuscular Hgb Conc. 33.1 g/dL (32.0-36.0); Mean Corpuscular Volume 88.1 fL (80.0-100.0); Monocytes # (auto) 0.3 10 ^3/uL (0-1.3); Monocytes % (auto) 6.6 % (0.0-12.0); Neutrophils # (auto) 3.3 10 ^3/uL (1.6-8.6); Neutrophils % (auto) 75.2 % (37.0-80.0); Nucleated Red Blood Cells % 0.1 %; Platelet Count (auto) 248 10^3/uL (140-450); Red Blood Cells 3.58 10^6/uL (4.5-5.90); Red Cell Distribution Width 15.8 % (11.8-14.3); White Blood Cell 4.4 10^3/uL (4.4-10.8)
[2019-12-18 12:08] LABS: Albumin 2.9 g/dL (3.4-5.0); Calcium 8.5 mg/dL (8.5-10.1); Magnesium 2.5 mg/dL (1.6-2.6); Potassium 4.2 mmol/L (3.5-5.1)
[2019-12-18 12:13] LABS: BUN/Creatinine Ratio 20.8; Bilirubin, Total 0.8 mg/dL (0.2-1.0); Total Protein 7.3 g/dL (6.4-8.2)
--- NOTE | 2019-12-18 12:30 | NUR ---
Discharge Instructions See e-MAR for any mediations given with this visit. Patient education given on disease process. Patient verbalized understanding. Previous labs reviewed. Patient discharged in stable condition with after care instructions and follow up appointment. PT TO RETURN TO CLINIC ON MONDAY FOR EVAL AND TX. O2 SATS @ 100% ON 2L N/C REMOVED O2 TO MONITOR. PT LEFT SAT 94% RA NOTE DOBUTAMINE IV [id number] ADMIN BY MITCH CULVER NS IV [id number] ADMIN BY SLOANE CULVER VIT B12 ADMIN BY MITCH CULVER L DELTOID LOT#[id number] EXP 09/07
== END | disposition home or self-care (01) ==
LOC: CHF HDHVI 08:13
PROVIDERS: ATTEND Internal Medicine Cardiovascular Disease
DX: I11.0 Hypertensive heart disease with heart failure (principal); I50.23 Acute on chronic systolic (congestive) heart failure; R06.02 Shortness of breath; E83.40 Disorders of magnesium metabolism, unspecified; I25.10 Atherosclerotic heart disease of native coronary artery without angina pectoris; K21.9 Gastro-esophageal reflux disease without esophagitis; E78.5 Hyperlipidemia, unspecified; E11.9 Type 2 diabetes mellitus without complications; J44.9 Chronic obstructive pulmonary disease, unspecified; E78.00 Pure hypercholesterolemia, unspecified; Z95.810 Presence of automatic (implantable) cardiac defibrillator; Z79.899 Other long term (current) drug therapy; Z95.5 Presence of coronary angioplasty implant and graft; Z90.49 Acquired absence of other specified parts of digestive tract
CPT/HCPCS: 36415; 71046; 80053; 83735; 83880; 85025; 96361; 96365; 96366; 96372; G0463; J1250; J3420; J7050; 96367

== ENCOUNTER → 2019-12-23 | Outpatient (CLI) | payer MEDICARE ==
[~2019-12-23] VITALS: Ht 30.5 cm; Wt 56.4 kg
[2019-12-23] VITALS (9 sets, daily range): BP systolic 131–171; BP diastolic 50–72
[~2019-12-23] MED LIST changes: -CYANOCOBALAMIN (B-12) 1000 MCG/1 ML VIAL IM ONE; -CYANOCOBALAMIN (B-12) 1000 MCG/1 ML VIAL ONE; -SODIUM CHLORIDE 0.9% 250 ML IV ONE
--- NOTE | 2019-12-23 08:15 | NUR ---
CLINIC PT ARRIVED TO THE CHF CLINIC FOR WEEKLY EVAL AND TX PER MD ORDERS. PT C/O SOB. ON ASSESSMENT PT RR IS 28 AND O2 SATS 88%. PT STATED THE HE FORGOT TO TAKE HIS MEDICATION THIS AM.
--- NOTE | 2019-12-23 08:19 | NUR ---
2L O2 N/C APPLIED TO PT PER MD ORDERS. O2 SAT INCREASED TO 96% WITH RR 26
--- NOTE | 2019-12-23 08:22 | NUR ---
IV insertion IV access obtained, via clean sterile technique by inserting 22 gauge catheter at RW after 1 attempt(s). IV secured properly. No trauma to site. Patient tolerated procedure well. NOTE INSERTED BY SLOANE CULVER
--- NOTE | 2019-12-23 08:29 | NUR ---
DOBUTAMINE IV STARTED @ 3/MCG/KG/MIN PER MD ORDER. VSS. WILL CONTINUE TO MONITOR
--- NOTE | 2019-12-23 10:01 | NUR ---
DOBUTAMINE STOPPED PT B/P IS 171/72. WILL CONTINUE TO MONITOR.
--- NOTE | 2019-12-23 11:32 | NUR ---
IV removal IV DC'd with sterile technique, catheter fully intact. Pressure dressing applied to site. Patient tolerated procedure well. Discharged with aftercare instructions per MD. NOTE: REMOVED BY ARIK CULVER
--- NOTE | 2019-12-23 11:43 | NUR ---
Discharge Instructions See e-MAR for any mediations given with this visit. Patient education given on disease process. Patient verbalized understanding. Previous labs reviewed. Patient discharged in stable condition with after care instructions and follow up appointment.PT TO RETURN TO CLINIC ON [facility] FOR EVAL AND TX. DOBUTAMINE IV [id number] ADMIN BY MITCH CULVER
== END | disposition home or self-care (01) ==
LOC: CHF HDHVI 08:27
PROVIDERS: ATTEND Internal Medicine Cardiovascular Disease
DX: I11.0 Hypertensive heart disease with heart failure (principal); I50.42 Chronic combined systolic (congestive) and diastolic (congestive) heart failure; I25.10 Atherosclerotic heart disease of native coronary artery without angina pectoris; I48.91 Unspecified atrial fibrillation; I27.21 Secondary pulmonary arterial hypertension; I25.2 Old myocardial infarction; J43.9 Emphysema, unspecified; R53.83 Other fatigue; K21.9 Gastro-esophageal reflux disease without esophagitis; E03.9 Hypothyroidism, unspecified; G89.29 Other chronic pain; E78.00 Pure hypercholesterolemia, unspecified; M19.90 Unspecified osteoarthritis, unspecified site; E43 Unspecified severe protein-calorie malnutrition; E78.5 Hyperlipidemia, unspecified; J90 Pleural effusion, not elsewhere classified; Z95.1 Presence of aortocoronary bypass graft; Z79.899 Other long term (current) drug therapy; Z85.810 Personal history of malignant neoplasm of tongue; Z87.891 Personal history of nicotine dependence; Z95.810 Presence of automatic (implantable) cardiac defibrillator; Z95.5 Presence of coronary angioplasty implant and graft; Z79.01 Long term (current) use of anticoagulants; Z90.49 Acquired absence of other specified parts of digestive tract
CPT/HCPCS: 96365; 96366; G0463; J1250

== ENCOUNTER → 2019-12-27 | Outpatient (CLI) | payer MEDICARE ==
[2019-12-27] VITALS (9 sets, daily range): BP systolic 106–166; BP diastolic 47–75
--- NOTE | 2019-12-27 08:13 | NUR ---
CLINIC PT ARRIVED TO THE CHF CLINIC FOR WEEKLY CHF EVAL AND TX. A/OX4, AMBULATORY.
--- NOTE | 2019-12-27 08:24 | NUR ---
IV insertion IV access obtained, via clean sterile technique by inserting 22 gauge catheter at CHARLI after 1 attempt(s). IV secured properly. No trauma to site. Patient tolerated procedure well. LABS DRAWN AND SENT NOTE INSERTED BY MITCH CULVER
--- NOTE | 2019-12-27 08:30 | NUR ---
DOBUTAMINE IV STARTED @ 3MCG/KG/MIN PER MD ORDERS. VSS. WILL CONTINUE TO MONITOR.
--- NOTE | 2019-12-27 10:01 | NUR ---
PT TOLERATING DOBUTAMINE INFUSION. IV SITE BENIGN. VSS. WILL CONTINUE TO MONITOR
--- NOTE | 2019-12-27 11:37 | NUR ---
Discharge Instructions See e-MAR for any mediations given with this visit. Patient education given on disease process. Patient verbalized understanding. Previous labs reviewed. Patient discharged in stable condition with after care instructions and follow up appointment ON MONDAY. NOTE DOBUTAMINE IV [id number] ADMIN BY MITCH CULVER
[2019-12-27 12:07] LABS: BUN/Creatinine Ratio 23.5; Calcium 8.9 mg/dL (8.5-10.1); Magnesium 2.6 mg/dL (1.6-2.6); Potassium 4.2 mmol/L (3.5-5.1)
== END | disposition home or self-care (01) ==
LOC: CHF HDHVI 08:22
PROVIDERS: ATTEND Internal Medicine Cardiovascular Disease
DX: I11.0 Hypertensive heart disease with heart failure (principal); I50.23 Acute on chronic systolic (congestive) heart failure; E83.40 Disorders of magnesium metabolism, unspecified; I25.10 Atherosclerotic heart disease of native coronary artery without angina pectoris; I27.21 Secondary pulmonary arterial hypertension; I48.91 Unspecified atrial fibrillation; I25.2 Old myocardial infarction; J43.9 Emphysema, unspecified; R53.83 Other fatigue; K21.9 Gastro-esophageal reflux disease without esophagitis; E78.5 Hyperlipidemia, unspecified; E03.9 Hypothyroidism, unspecified; G89.29 Other chronic pain; E78.00 Pure hypercholesterolemia, unspecified; J90 Pleural effusion, not elsewhere classified; E43 Unspecified severe protein-calorie malnutrition; E11.9 Type 2 diabetes mellitus without complications; Z85.810 Personal history of malignant neoplasm of tongue; Z87.891 Personal history of nicotine dependence; Z95.1 Presence of aortocoronary bypass graft; Z95.810 Presence of automatic (implantable) cardiac defibrillator; Z79.899 Other long term (current) drug therapy; Z90.49 Acquired absence of other specified parts of digestive tract; Z79.01 Long term (current) use of anticoagulants; Z95.5 Presence of coronary angioplasty implant and graft
CPT/HCPCS: 36415; 80048; 83735; 83880; 96365; 96366; G0463; J1250

== ENCOUNTER → 2019-12-30 | Outpatient (CLI) | payer MEDICARE ==
[2019-12-30] VITALS (12 sets, daily range): BP systolic 140–173; BP diastolic 58–83
== END | disposition home or self-care (01) ==
LOC: CHF HDHVI 08:38
PROVIDERS: ATTEND Internal Medicine Cardiovascular Disease
DX: I11.0 Hypertensive heart disease with heart failure (principal); I50.42 Chronic combined systolic (congestive) and diastolic (congestive) heart failure; I48.91 Unspecified atrial fibrillation; I25.2 Old myocardial infarction; I25.10 Atherosclerotic heart disease of native coronary artery without angina pectoris; J43.9 Emphysema, unspecified; K21.9 Gastro-esophageal reflux disease without esophagitis; E78.5 Hyperlipidemia, unspecified; E03.9 Hypothyroidism, unspecified; E78.00 Pure hypercholesterolemia, unspecified; M19.90 Unspecified osteoarthritis, unspecified site; E11.9 Type 2 diabetes mellitus without complications; Z95.1 Presence of aortocoronary bypass graft; Z79.01 Long term (current) use of anticoagulants; Z79.899 Other long term (current) drug therapy; Z87.891 Personal history of nicotine dependence; Z90.49 Acquired absence of other specified parts of digestive tract
CPT/HCPCS: 96365; 96366; G0463; J1250

== ENCOUNTER → 2019-12-31 | Outpatient (CLI) | payer MEDICARE ==
[~2019-12-31] VITALS: Ht 180.3 cm; Wt 57.2 kg
[~2019-12-31] MED LIST changes: +ADENOSINE 48 MG in GIVE UN-DILUTED 0 ML IV ONE; +ADENOSINE 90 MG/30 ML INJ IV ONE; -DOBUTamine 1000MCG/ML 250 ML IV ONE
== END | disposition home or self-care (01) ==
LOC: Rad HDHVI 09:11
PROVIDERS: ATTEND Internal Medicine Cardiovascular Disease
DX: I25.2 Old myocardial infarction (principal); I10 Essential (primary) hypertension; Z95.1 Presence of aortocoronary bypass graft; Z95.0 Presence of cardiac pacemaker
CPT/HCPCS: 78452; 93005; 96374; 96375; A9500; J0153

== ENCOUNTER → 2020-01-03 | Outpatient (CLI) | payer MEDICARE ==
[2020-01-03] VITALS (9 sets, daily range): BP systolic 92–158; BP diastolic 40–72
[~2020-01-03] MED LIST changes: -ADENOSINE 48 MG in GIVE UN-DILUTED 0 ML IV ONE; -ADENOSINE 90 MG/30 ML INJ IV ONE; +DOBUTamine 1000MCG/ML 250 ML IV ONE; +DOBUTamine 1000MCG/ML 250 ML IV SCH; +SODIUM CHLORIDE 0.9% 250 ML IV ONE
[2020-01-03 11:52] LABS: Basophils # (auto) 0 10 ^3/uL (0-0.2); Basophils % (auto) 0.4 % (0.0-2.0); Eosinophils # (auto) 0.1 10 ^3/uL (0-0.8); Eosinophils % (auto) 1.5 % (0.0-7.0); Hemoglobin 10.1 g/dL (13.5-17.5); Lymphocytes # (auto) 0.5 10 ^3/uL (0.4-5.4); Lymphocytes % (auto) 7.4 % (10.0-50.0); Mean Corpuscular Hemoglobin 28.8 pg (28.0-32.0); Mean Corpuscular Hgb Conc. 32.5 g/dL (32.0-36.0); Mean Corpuscular Volume 88.7 fL (80.0-100.0); Monocytes # (auto) 0.3 10 ^3/uL (0-1.3); Neutrophils # (auto) 5.7 10 ^3/uL (1.6-8.6); Neutrophils % (auto) 85.7 % (37.0-80.0); Platelet Count (auto) 290 10^3/uL (140-450); Red Cell Distribution Width 15.2 % (11.8-14.3); White Blood Cell 6.6 10^3/uL (4.4-10.8)
[2020-01-03 12:23] LABS: Magnesium 2.5 mg/dL (1.6-2.6); Potassium 4.2 mmol/L (3.5-5.1)
== END | disposition home or self-care (01) ==
LOC: CHF HDHVI 08:07
PROVIDERS: ATTEND Internal Medicine Cardiovascular Disease
DX: I11.0 Hypertensive heart disease with heart failure (principal); I50.23 Acute on chronic systolic (congestive) heart failure; R94.4 Abnormal results of kidney function studies; E87.6 Hypokalemia; R53.83 Other fatigue; I25.10 Atherosclerotic heart disease of native coronary artery without angina pectoris; I48.91 Unspecified atrial fibrillation; I42.8 Other cardiomyopathies; I25.2 Old myocardial infarction; J43.9 Emphysema, unspecified; K21.9 Gastro-esophageal reflux disease without esophagitis; E78.5 Hyperlipidemia, unspecified; E03.9 Hypothyroidism, unspecified; J90 Pleural effusion, not elsewhere classified; E43 Unspecified severe protein-calorie malnutrition; M19.90 Unspecified osteoarthritis, unspecified site; G89.29 Other chronic pain; E78.00 Pure hypercholesterolemia, unspecified; Z85.810 Personal history of malignant neoplasm of tongue; Z87.891 Personal history of nicotine dependence; Z95.1 Presence of aortocoronary bypass graft; Z90.49 Acquired absence of other specified parts of digestive tract; Z79.01 Long term (current) use of anticoagulants; Z79.899 Other long term (current) drug therapy; Z95.810 Presence of automatic (implantable) cardiac defibrillator; Z95.5 Presence of coronary angioplasty implant and graft
CPT/HCPCS: 36415; 82565; 83735; 83880; 84132; 84520; 85025; 85610; 96365; 96366; G0463; J1250; J7050; 96367

== ENCOUNTER → 2020-01-06 | Outpatient (CLI) | payer MEDICARE ==
[2020-01-06] VITALS (9 sets, daily range): BP systolic 105–162; BP diastolic 54–76
[~2020-01-06] MED LIST changes: -SODIUM CHLORIDE 0.9% 250 ML IV ONE
--- NOTE | 2020-01-06 08:30 | NUR ---
CLINIC PT ARRIVED TO THE CHF CLINIC FOR WEEKLY CHF EVAL AND TX PER MD ORDERS. A/OX4, AMBULATORY. BREATHING IS EVEN AND UNLABORED.
--- NOTE | 2020-01-06 08:41 | NUR ---
DOBUTAMINE IV STARTED @ 3MCG/KG/MIN PER MD ORDERS. VSS. WILL CONTINUE TO MONITOR.
--- NOTE | 2020-01-06 09:54 | NUR ---
PT TOLERATING DOBUTAMINE INFUSION. IV SITE BENIGN. VSS. WILL CONTINUE TO MONITOR.
--- NOTE | 2020-01-06 11:58 | NUR ---
Discharge Instructions See e-MAR for any mediations given with this visit. Patient education given on disease process. Patient verbalized understanding. Previous labs reviewed. Patient discharged in stable condition with after care instructions and follow up appointment ON MONDAY NOTE DOBUTAMINE IV [id number] ADMIN BY MITCH CULVER
== END | disposition home or self-care (01) ==
LOC: CHF HDHVI 08:24
PROVIDERS: ATTEND Internal Medicine Cardiovascular Disease
DX: I11.0 Hypertensive heart disease with heart failure (principal); I50.23 Acute on chronic systolic (congestive) heart failure; R53.83 Other fatigue; I25.10 Atherosclerotic heart disease of native coronary artery without angina pectoris; I48.91 Unspecified atrial fibrillation; I25.2 Old myocardial infarction; I42.8 Other cardiomyopathies; I27.21 Secondary pulmonary arterial hypertension; J43.9 Emphysema, unspecified; K21.9 Gastro-esophageal reflux disease without esophagitis; E78.5 Hyperlipidemia, unspecified; E03.9 Hypothyroidism, unspecified; E78.00 Pure hypercholesterolemia, unspecified; M19.90 Unspecified osteoarthritis, unspecified site; G89.29 Other chronic pain; J90 Pleural effusion, not elsewhere classified; E43 Unspecified severe protein-calorie malnutrition; Z79.01 Long term (current) use of anticoagulants; Z87.891 Personal history of nicotine dependence; Z95.810 Presence of automatic (implantable) cardiac defibrillator; Z95.1 Presence of aortocoronary bypass graft; Z90.49 Acquired absence of other specified parts of digestive tract; Z85.810 Personal history of malignant neoplasm of tongue; Z95.5 Presence of coronary angioplasty implant and graft; Z79.899 Other long term (current) drug therapy
CPT/HCPCS: 96365; 96366; G0463; J1250

== ENCOUNTER → 2020-01-08 | Outpatient (CLI) | payer MEDICARE ==
[~2020-01-08] MED LIST changes: -DOBUTamine 1000MCG/ML 250 ML IV ONE; -DOBUTamine 1000MCG/ML 250 ML IV SCH; +READI-CAT 2 (BARIUM SULF)(VANILLA SMOOTHIE) 450ML ONE
== END | disposition home or self-care (01) ==
LOC: Rad HDHVI 11:24
PROVIDERS: ATTEND Internal Medicine Cardiovascular Disease
DX: K40.90 Unilateral inguinal hernia, without obstruction or gangrene, not specified as recurrent (principal); I70.0 Atherosclerosis of aorta; J98.11 Atelectasis; J90 Pleural effusion, not elsewhere classified; K86.89 Other specified diseases of pancreas; J47.9 Bronchiectasis, uncomplicated; N20.0 Calculus of kidney; K55.1 Chronic vascular disorders of intestine; M47.816 Spondylosis without myelopathy or radiculopathy, lumbar region; M48.061 Spinal stenosis, lumbar region without neurogenic claudication; I70.1 Atherosclerosis of renal artery; N40.0 Benign prostatic hyperplasia without lower urinary tract symptoms; K92.2 Gastrointestinal hemorrhage, unspecified
CPT/HCPCS: 74176

== ENCOUNTER → 2020-01-13 | Outpatient (CLI) | payer MEDICARE ==
[~2020-01-13] VITALS: Ht 30.5 cm; Wt 57.6 kg
[2020-01-13] VITALS (9 sets, daily range): BP systolic 100–145; BP diastolic 41–65
[~2020-01-13] MED LIST changes: +DOBUTamine 1000MCG/ML 250 ML IV ONE; -READI-CAT 2 (BARIUM SULF)(VANILLA SMOOTHIE) 450ML ONE
[2020-01-13 11:54] LABS: Basophils # (auto) 0.1 10 ^3/uL (0-0.2); Eosinophils # (auto) 0.3 10 ^3/uL (0-0.8); Eosinophils % (auto) 4.9 % (0.0-7.0); Hematocrit 32.2 % (41.0-53.0); Hemoglobin 10.3 g/dL (13.5-17.5); Mean Corpuscular Hemoglobin 28.4 pg (28.0-32.0); Mean Corpuscular Hgb Conc. 32.1 g/dL (32.0-36.0); Mean Corpuscular Volume 88.7 fL (80.0-100.0); Monocytes # (auto) 0.5 10 ^3/uL (0-1.3); Neutrophils % (auto) 72.1 % (37.0-80.0); Nucleated Red Blood Cells % 0.2 %; Platelet Count (auto) 320 10^3/uL (140-450); Red Blood Cells 3.63 10^6/uL (4.5-5.90); Red Cell Distribution Width 15.8 % (11.8-14.3); White Blood Cell 6.9 10^3/uL (4.4-10.8)
[2020-01-13 12:01] LABS: Calcium 8.8 mg/dL (8.5-10.1); Magnesium 2.6 mg/dL (1.6-2.6); Potassium 4.4 mmol/L (3.5-5.1)
[2020-01-13 12:03] LABS: BUN/Creatinine Ratio 22.4
== END | disposition home or self-care (01) ==
LOC: CHF HDHVI 08:08
PROVIDERS: ATTEND Internal Medicine Cardiovascular Disease
DX: I11.0 Hypertensive heart disease with heart failure (principal); I50.23 Acute on chronic systolic (congestive) heart failure; D64.9 Anemia, unspecified; E83.40 Disorders of magnesium metabolism, unspecified; I25.10 Atherosclerotic heart disease of native coronary artery without angina pectoris; I27.21 Secondary pulmonary arterial hypertension; I25.2 Old myocardial infarction; I48.91 Unspecified atrial fibrillation; I42.8 Other cardiomyopathies; R53.83 Other fatigue; J43.9 Emphysema, unspecified; K21.9 Gastro-esophageal reflux disease without esophagitis; E78.5 Hyperlipidemia, unspecified; E03.9 Hypothyroidism, unspecified; J90 Pleural effusion, not elsewhere classified; G89.29 Other chronic pain; E78.00 Pure hypercholesterolemia, unspecified; M19.90 Unspecified osteoarthritis, unspecified site; E43 Unspecified severe protein-calorie malnutrition; Z85.810 Personal history of malignant neoplasm of tongue; Z87.891 Personal history of nicotine dependence; Z95.1 Presence of aortocoronary bypass graft; Z95.810 Presence of automatic (implantable) cardiac defibrillator; Z79.01 Long term (current) use of anticoagulants; Z95.5 Presence of coronary angioplasty implant and graft; Z79.899 Other long term (current) drug therapy; Z90.49 Acquired absence of other specified parts of digestive tract
CPT/HCPCS: 36415; 80048; 83735; 83880; 85025; 96365; 96366; G0463; J1250

== ENCOUNTER → 2020-01-17 | Outpatient (CLI) | payer MEDICARE ==
[~2020-01-17] VITALS: Ht 30.5 cm; Wt 0.5 kg
[2020-01-17] VITALS (10 sets, daily range): BP systolic 107–170; BP diastolic 44–74
[~2020-01-17] MED LIST changes: +FUROSEMIDE 20 MG/2 ML VIAL IV ONE; +FUROSEMIDE 20 MG/2 ML VIAL ONE
--- NOTE | 2020-01-17 08:50 | NUR ---
PT. TO CHF CLINIC FOR DOBUTREX INFUSION PER MD ORDER. O2 PLACED AT 1.5L/MIN AFTER RA SATS 88%. WT. UP 2 LBS SINCE LAST VISIT. SEE NSG ASSESS. ORDERS RECEIVED AND CARRIED OUT.
--- NOTE | 2020-01-17 09:08 | NUR ---
MEDS: DOBUTAMINE DRIP STARTED AT 3 MCG/KG/MIN.
--- NOTE | 2020-01-17 12:12 | NUR ---
IV removal IV DC'd with sterile technique, catheter fully intact. Pressure dressing applied to site. Patient tolerated procedure well.
--- NOTE | 2020-01-17 12:14 | NUR ---
CHF Clinic Discharge Instructions See e-MAR for any mediations given with this visit. Patient education given on disease process. Patient verbalized understanding. Previous labs reviewed. Patient discharged in stable condition with after care instructions and follow up appointment. Note Dobutamine [id number] admin by Sandoval CULVER Lasix IVP admin by Loan CULVER.
== END | disposition home or self-care (01) ==
LOC: CHF HDHVI 08:45
PROVIDERS: ATTEND Internal Medicine Cardiovascular Disease
DX: I11.0 Hypertensive heart disease with heart failure (principal); I50.42 Chronic combined systolic (congestive) and diastolic (congestive) heart failure; I25.10 Atherosclerotic heart disease of native coronary artery without angina pectoris; I27.21 Secondary pulmonary arterial hypertension; I48.91 Unspecified atrial fibrillation; I25.2 Old myocardial infarction; I42.8 Other cardiomyopathies; J43.9 Emphysema, unspecified; K21.9 Gastro-esophageal reflux disease without esophagitis; E78.5 Hyperlipidemia, unspecified; E03.9 Hypothyroidism, unspecified; G89.29 Other chronic pain; E78.00 Pure hypercholesterolemia, unspecified; M19.90 Unspecified osteoarthritis, unspecified site; J90 Pleural effusion, not elsewhere classified; E43 Unspecified severe protein-calorie malnutrition; Z79.899 Other long term (current) drug therapy; Z85.810 Personal history of malignant neoplasm of tongue; Z87.891 Personal history of nicotine dependence; Z95.1 Presence of aortocoronary bypass graft; Z95.810 Presence of automatic (implantable) cardiac defibrillator; Z90.49 Acquired absence of other specified parts of digestive tract; Z95.5 Presence of coronary angioplasty implant and graft; Z79.01 Long term (current) use of anticoagulants
CPT/HCPCS: 96365; 96366; 96375; G0463; J1250; J1940

== ENCOUNTER → 2020-01-20 | Outpatient (CLI) | payer MEDICARE ==
[~2020-01-20] VITALS: Ht 30.5 cm; Wt 57.3 kg
[2020-01-20] VITALS (9 sets, daily range): BP systolic 107–180; BP diastolic 52–82
[~2020-01-20] MED LIST changes: +CYANOCOBALAMIN (B-12) 1000 MCG/1 ML VIAL IM ONE; +CYANOCOBALAMIN (B-12) 1000 MCG/1 ML VIAL ONE; -FUROSEMIDE 20 MG/2 ML VIAL IV ONE; -FUROSEMIDE 20 MG/2 ML VIAL ONE
--- NOTE | 2020-01-20 08:35 | NUR ---
IV insertion IV access obtained, via clean sterile technique by inserting 22 gauge catheter at after 1 attempt(s). IV secured properly. No trauma to site. Patient tolerated procedure well. NOTE INSERTED BY SLOANE CULVER
--- NOTE | 2020-01-20 08:40 | NUR ---
DOBUTAMINE IV STARTED @ 3MCG/KG/MIN. VSS. WILL CONTINUE TO MONITOR.
--- NOTE | 2020-01-20 08:40 | NUR ---
CLINIC PT ARRIVED TO THE CHF CLINIC FOR WEEKLY CHF EVAL AND TX. A/OX4, AMBULATORY. BREATHING IS EVEN AND UNLABORED. Addendum: 01/20/20 at 0937 by MITCH MCCRACKEN RN RN [place] PT ARRIVED AT 824
--- NOTE | 2020-01-20 09:52 | NUR ---
PT TOLERATING DOBUTAMINE INFUSION. IV SITE BENIGN. VSS. WILL CONTINUE TO MONITOR.
--- NOTE | 2020-01-20 10:30 | NUR ---
DOBUTAMINE INFUSION STOPPED PER MD ORDERS. PT B/P 180/76 HR 70. A/OX4
--- NOTE | 2020-01-20 12:20 | NUR ---
Discharge Instructions See e-MAR for any mediations given with this visit. Patient education given on disease process. Patient verbalized understanding. Previous labs reviewed. Patient discharged in stable condition with after care instructions and follow up appointment ON MONDAY. NOTE DOBUTAMINE IV [id number] ADMIN BY SLOANE CULVER VIT B12 IM L DELTOID ADMIN BY SLOANE CULVER
== END | disposition home or self-care (01) ==
LOC: CHF HDHVI 08:13
PROVIDERS: ATTEND Internal Medicine Cardiovascular Disease
DX: I11.0 Hypertensive heart disease with heart failure (principal); I50.42 Chronic combined systolic (congestive) and diastolic (congestive) heart failure; R53.83 Other fatigue; I25.10 Atherosclerotic heart disease of native coronary artery without angina pectoris; I27.21 Secondary pulmonary arterial hypertension; I48.91 Unspecified atrial fibrillation; I42.8 Other cardiomyopathies; K21.9 Gastro-esophageal reflux disease without esophagitis; J43.9 Emphysema, unspecified; E03.9 Hypothyroidism, unspecified; G89.29 Other chronic pain; J90 Pleural effusion, not elsewhere classified; E78.00 Pure hypercholesterolemia, unspecified; M19.90 Unspecified osteoarthritis, unspecified site; E43 Unspecified severe protein-calorie malnutrition; Z95.1 Presence of aortocoronary bypass graft; Z95.810 Presence of automatic (implantable) cardiac defibrillator; Z95.5 Presence of coronary angioplasty implant and graft; Z79.01 Long term (current) use of anticoagulants; Z79.899 Other long term (current) drug therapy; Z85.810 Personal history of malignant neoplasm of tongue; Z87.891 Personal history of nicotine dependence; Z90.49 Acquired absence of other specified parts of digestive tract
CPT/HCPCS: 96365; 96366; 96372; G0463; J1250; J3420

== ENCOUNTER → 2020-01-24 | Outpatient (CLI) | payer MEDICARE ==
[2020-01-24] VITALS (10 sets, daily range): BP systolic 129–175; BP diastolic 55–74
[~2020-01-24] MED LIST changes: -CYANOCOBALAMIN (B-12) 1000 MCG/1 ML VIAL IM ONE; -CYANOCOBALAMIN (B-12) 1000 MCG/1 ML VIAL ONE
--- NOTE | 2020-01-24 08:10 | NUR ---
CLINIC PT ARRIVED TO THE CHF CLINIC FOR WEEKLY CHF EVAL AND TX. A/OX4, AMBULATORY. PT APPEARS TO HAVE SOME SOB WITH WALKING. BREATHING IS EVEN AND UNLABORED.
--- NOTE | 2020-01-24 08:16 | NUR ---
DOBUTAMINE IV STARTED @ 3MCG/KG/MIN PER MD ORDERS. VSS. WILL CONTINUE TO MONITOR.
--- NOTE | 2020-01-24 10:30 | NUR ---
DOBUTAMINE INFUSION STOPPED B/P 175/74 HR 70. A/OX4. WILL CONTINUE TO MONITOR
--- NOTE | 2020-01-24 10:48 | NUR ---
DOBUTAMINE INFUSION RESTARTED @ 3MCG/KG/MIN. PT B/P 149/64 HR 70, WILL CONTINUE TO MONITOR.
--- NOTE | 2020-01-24 11:34 | NUR ---
Discharge Instructions See e-MAR for any mediations given with this visit. Patient education given on disease process. Patient verbalized understanding. Previous labs reviewed. Patient discharged in stable condition with after care instructions and follow up appointment ON MONDAY. NOTE DOBUTAMINE IV [id number]: [id number] ADMIN BY MITCH CULVER
[2020-01-24 12:33] LABS: Basophils # (auto) 0 10 ^3/uL (0-0.2); Basophils % (auto) 0.9 % (0.0-2.0); Eosinophils # (auto) 0.3 10 ^3/uL (0-0.8); Eosinophils % (auto) 6.7 % (0.0-7.0); Hematocrit 31.2 % (41.0-53.0); Lymphocytes # (auto) 0.7 10 ^3/uL (0.4-5.4); Lymphocytes % (auto) 13.5 % (10.0-50.0); Mean Corpuscular Hemoglobin 28.4 pg (28.0-32.0); Mean Corpuscular Hgb Conc. 32.1 g/dL (32.0-36.0); Mean Corpuscular Volume 88.2 fL (80.0-100.0); Monocytes # (auto) 0.4 10 ^3/uL (0-1.3); Neutrophils # (auto) 3.5 10 ^3/uL (1.6-8.6); Neutrophils % (auto) 70.9 % (37.0-80.0); Nucleated Red Blood Cells % 0.1 %; Platelet Count (auto) 265 10^3/uL (140-450); Red Blood Cells 3.54 10^6/uL (4.5-5.90); Red Cell Distribution Width 15.3 % (11.8-14.3)
[2020-01-24 12:39] LABS: Calcium 8.9 mg/dL (8.5-10.1); Magnesium 2.7 mg/dL (1.6-2.6); Potassium 4.1 mmol/L (3.5-5.1)
== END | disposition home or self-care (01) ==
LOC: CHF HDHVI 08:19
PROVIDERS: ATTEND Internal Medicine Cardiovascular Disease
DX: I11.0 Hypertensive heart disease with heart failure (principal); I50.23 Acute on chronic systolic (congestive) heart failure; R53.83 Other fatigue; I25.10 Atherosclerotic heart disease of native coronary artery without angina pectoris; I48.91 Unspecified atrial fibrillation; I42.8 Other cardiomyopathies; J43.9 Emphysema, unspecified; I25.2 Old myocardial infarction; E78.5 Hyperlipidemia, unspecified; D64.9 Anemia, unspecified; K21.9 Gastro-esophageal reflux disease without esophagitis; E83.40 Disorders of magnesium metabolism, unspecified; E03.9 Hypothyroidism, unspecified; J90 Pleural effusion, not elsewhere classified; G89.29 Other chronic pain; E78.00 Pure hypercholesterolemia, unspecified; M19.90 Unspecified osteoarthritis, unspecified site; E43 Unspecified severe protein-calorie malnutrition; Z79.899 Other long term (current) drug therapy; Z95.1 Presence of aortocoronary bypass graft; Z95.810 Presence of automatic (implantable) cardiac defibrillator; Z85.810 Personal history of malignant neoplasm of tongue; Z87.891 Personal history of nicotine dependence; Z79.01 Long term (current) use of anticoagulants; Z90.49 Acquired absence of other specified parts of digestive tract; Z95.5 Presence of coronary angioplasty implant and graft
CPT/HCPCS: 36415; 80048; 83735; 83880; 85025; 96365; 96366; G0463; J1250

== ENCOUNTER → 2020-01-27 | Outpatient (CLI) | payer MEDICARE ==
[~2020-01-27] VITALS: Ht 30.5 cm; Wt 55.8 kg
[~2020-01-27] MED LIST changes: +ALBUTEROL SULF 2.5 MG/0.5ML(0.5%) NEB SOLN NEB ONE; +ALBUTEROL SULF 2.5 MG/0.5ML(0.5%) NEB SOLN ONE; +CYANOCOBALAMIN (B-12) 1000 MCG/1 ML VIAL IM ONE; +CYANOCOBALAMIN (B-12) 1000 MCG/1 ML VIAL ONE; +levoFLOXacin 250MG 50 ML IV ONE; +levoFLOXacin 500MG 100 ML IV ONE
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
--- NOTE | 2020-01-27 08:48 | NUR ---
IV insertion IV access obtained, via clean sterile technique by inserting 22 gauge catheter at CHARLI after 1 attempt(s). IV secured properly. No trauma to site. Patient tolerated procedure well. LABS DRAWN AND SENT STAT. NOTE INSERTED BY MITCH CULVER
--- NOTE | 2020-01-27 09:01 | NUR ---
MD at bedside. MD at bedside for evaluation and treatment for acute episode. Further orders received and carried out.
[2020-01-27 09:51] LABS: Basophils # (auto) 0 10 ^3/uL (0-0.2); Basophils % (auto) 0.3 % (0.0-2.0); Eosinophils # (auto) 0.1 10 ^3/uL (0-0.8); Eosinophils % (auto) 0.7 % (0.0-7.0); Hematocrit 31.2 % (41.0-53.0); Lymphocytes # (auto) 0.3 10 ^3/uL (0.4-5.4); Mean Corpuscular Hemoglobin 28.3 pg (28.0-32.0); Mean Corpuscular Hgb Conc. 31.9 g/dL (32.0-36.0); Mean Corpuscular Volume 88.7 fL (80.0-100.0); Monocytes # (auto) 0.3 10 ^3/uL (0-1.3); Neutrophils # (auto) 7.7 10 ^3/uL (1.6-8.6); Platelet Count (auto) 238 10^3/uL (140-450); Red Blood Cells 3.52 10^6/uL (4.5-5.90); Red Cell Distribution Width 15.3 % (11.8-14.3); White Blood Cell 8.5 10^3/uL (4.4-10.8)
[2020-01-27 10:06] LABS: Albumin 3.2 g/dL (3.4-5.0); Calcium 8.7 mg/dL (8.5-10.1); Magnesium 2.5 mg/dL (1.6-2.6); Potassium 4.1 mmol/L (3.5-5.1)
[2020-01-27 10:12] LABS: BUN/Creatinine Ratio 20.7; Bilirubin, Total 0.8 mg/dL (0.2-1.0); Total Protein 7.6 g/dL (6.4-8.2)
--- NOTE | 2020-01-27 11:15 | NUR ---
COVID TESTING DONE BY [facility] TECH
[2020-01-27 11:40] VITALS: BP 132/63
--- NOTE | 2020-01-27 11:40 | NUR ---
Discharge Instructions See e-MAR for any mediations given with this visit. Patient education given on disease process. Patient verbalized understanding. Previous labs reviewed. Patient discharged in stable condition with after care instructions and follow up appointment ON MONDAY. PRESCRIPTION CALLED TO [facility] IN [place] PER FOR LEVAQUIN 500MG X7DAYS, PREDNISONE 40MG X7 DAYS. PT WAS ADVISED TO HAVE [facility] TESTED THE [facility] OR ONE OF THE [facility] TESTING SITES. PT ALSO GIVEN INSTRUCTIONS TO TAKE HOME ZINC, VIT C, AND VIT D. PT TO CONTINUE HOME NEBULIZER TX. NOTE LEVAQUIN IV [id number] ADMIN BY SLOANE CULVER ALBUTEROL MED NEB ADMIN BY SLOANE CULVER VIT B12 IM ADMIN BY SLOANE CULVER L DELTOID LOT# [id number] EXP 09/07
== END | disposition home or self-care (01) ==
LOC: Rad HDHVI 08:44
PROVIDERS: ATTEND Internal Medicine Cardiovascular Disease
DX: I11.0 Hypertensive heart disease with heart failure (principal); I50.43 Acute on chronic combined systolic (congestive) and diastolic (congestive) heart failure; I25.10 Atherosclerotic heart disease of native coronary artery without angina pectoris; I25.2 Old myocardial infarction; I42.8 Other cardiomyopathies; I27.21 Secondary pulmonary arterial hypertension; I48.91 Unspecified atrial fibrillation; D64.9 Anemia, unspecified; E83.40 Disorders of magnesium metabolism, unspecified; R09.3 Abnormal sputum; R53.83 Other fatigue; J43.9 Emphysema, unspecified; K21.9 Gastro-esophageal reflux disease without esophagitis; E78.5 Hyperlipidemia, unspecified; E03.9 Hypothyroidism, unspecified; E11.9 Type 2 diabetes mellitus without complications; E78.00 Pure hypercholesterolemia, unspecified; M19.90 Unspecified osteoarthritis, unspecified site; E43 Unspecified severe protein-calorie malnutrition; J90 Pleural effusion, not elsewhere classified; G89.29 Other chronic pain; Z85.810 Personal history of malignant neoplasm of tongue; Z87.891 Personal history of nicotine dependence; Z95.1 Presence of aortocoronary bypass graft; Z79.899 Other long term (current) drug therapy; Z90.49 Acquired absence of other specified parts of digestive tract; Z79.01 Long term (current) use of anticoagulants; Z95.5 Presence of coronary angioplasty implant and graft; Z95.810 Presence of automatic (implantable) cardiac defibrillator
CPT/HCPCS: 36415; 71046; 80053; 83735; 83880; 85025; 85610; 87070; 87077; 87186; 87205; 94640; 96365; 96372; G0463; J1250; J1956; J3420

== ENCOUNTER → 2020-01-31 | Outpatient (CLI) | payer MEDICARE ==
[2020-01-31] VITALS (9 sets, daily range): BP systolic 102–174; BP diastolic 54–91
[~2020-01-31] MED LIST changes: -ALBUTEROL SULF 2.5 MG/0.5ML(0.5%) NEB SOLN NEB ONE; -ALBUTEROL SULF 2.5 MG/0.5ML(0.5%) NEB SOLN ONE; -CYANOCOBALAMIN (B-12) 1000 MCG/1 ML VIAL IM ONE; -CYANOCOBALAMIN (B-12) 1000 MCG/1 ML VIAL ONE; -levoFLOXacin 250MG 50 ML IV ONE; -levoFLOXacin 500MG 100 ML IV ONE
[2020-01-31 12:02] LABS: Basophils # (auto) 0 10 ^3/uL (0-0.2); Basophils % (auto) 0.2 % (0.0-2.0); Eosinophils # (auto) 0 10 ^3/uL (0-0.8); Eosinophils % (auto) 0.1 % (0.0-7.0); Hematocrit 29.9 % (41.0-53.0); Hemoglobin 9.9 g/dL (13.5-17.5); Lymphocytes # (auto) 0.3 10 ^3/uL (0.4-5.4); Lymphocytes % (auto) 4.2 % (10.0-50.0); Mean Corpuscular Hemoglobin 29.2 pg (28.0-32.0); Mean Corpuscular Volume 88.5 fL (80.0-100.0); Monocytes # (auto) 0.1 10 ^3/uL (0-1.3); Monocytes % (auto) 1.5 % (0.0-12.0); Neutrophils # (auto) 5.9 10 ^3/uL (1.6-8.6); Platelet Count (auto) 275 10^3/uL (140-450); Red Blood Cells 3.38 10^6/uL (4.5-5.90); Red Cell Distribution Width 15.1 % (11.8-14.3); White Blood Cell 6.3 10^3/uL (4.4-10.8)
[2020-01-31 12:23] LABS: Potassium 4.4 mmol/L (3.5-5.1)
[2020-01-31 12:28] LABS: BUN/Creatinine Ratio 23.1; Calcium 8.5 mg/dL (8.5-10.1)
== END | disposition home or self-care (01) ==
LOC: CHF HDHVI 08:24
PROVIDERS: ATTEND Internal Medicine Cardiovascular Disease
DX: I11.0 Hypertensive heart disease with heart failure (principal); I50.43 Acute on chronic combined systolic (congestive) and diastolic (congestive) heart failure; I25.10 Atherosclerotic heart disease of native coronary artery without angina pectoris; I48.91 Unspecified atrial fibrillation; I42.8 Other cardiomyopathies; I25.5 Ischemic cardiomyopathy; I25.2 Old myocardial infarction; I27.21 Secondary pulmonary arterial hypertension; J43.9 Emphysema, unspecified; K21.9 Gastro-esophageal reflux disease without esophagitis; E78.5 Hyperlipidemia, unspecified; J90 Pleural effusion, not elsewhere classified; E03.9 Hypothyroidism, unspecified; G89.29 Other chronic pain; E78.00 Pure hypercholesterolemia, unspecified; E43 Unspecified severe protein-calorie malnutrition; Z85.810 Personal history of malignant neoplasm of tongue; Z87.891 Personal history of nicotine dependence; Z95.1 Presence of aortocoronary bypass graft; Z79.899 Other long term (current) drug therapy; Z90.49 Acquired absence of other specified parts of digestive tract; Z95.5 Presence of coronary angioplasty implant and graft; Z95.810 Presence of automatic (implantable) cardiac defibrillator; Z79.01 Long term (current) use of anticoagulants
CPT/HCPCS: 36415; 80048; 83880; 85025; 85610; 96365; 96366; G0463; J1250

== ENCOUNTER → 2020-02-03 | Outpatient (CLI) | payer MEDICARE ==
[2020-02-03] VITALS (9 sets, daily range): BP systolic 80–158; BP diastolic 39–77
[~2020-02-03] MED LIST changes: +BACITRACIN TOP OINT 1 UD PKG TOP ONE; +CYANOCOBALAMIN (B-12) 1000 MCG/1 ML VIAL IM ONE; +CYANOCOBALAMIN (B-12) 1000 MCG/1 ML VIAL ONE; +SODIUM CHLORIDE 0.9% 1,000 ML IV ONE
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
--- NOTE | 2020-02-03 09:11 | NUR ---
IV insertion IV access obtained, via clean sterile technique by inserting 22 gauge catheter at CHARLI after 1 attempt(s). IV secured properly. No trauma to site. Patient tolerated procedure well. LABS DRAWN AND SENT
--- NOTE | 2020-02-03 09:20 | NUR ---
DOBUTAMINE IV STARTED @ 3 MCG/KG/MIN PER MD ORDERS ALONG WITH NS @ 75ML/HR FOR DECREASED BP. WILL CONTINUE TO MONITOR.
[2020-02-03 10:27] LABS: Basophils # (auto) 0.1 10 ^3/uL (0-0.2); Eosinophils # (auto) 0.3 10 ^3/uL (0-0.8); Hemoglobin 7.8 g/dL (13.5-17.5); Lymphocytes # (auto) 0.5 10 ^3/uL (0.4-5.4); Mean Corpuscular Hemoglobin 28.8 pg (28.0-32.0); Monocytes # (auto) 0.4 10 ^3/uL (0-1.3); Red Blood Cells 2.71 10^6/uL (4.5-5.90); Red Cell Distribution Width 15.6 % (11.8-14.3); White Blood Cell 4.3 10^3/uL (4.4-10.8)
[2020-02-03 10:30] LABS: Basophils % (auto) 1.9 % (0.0-2.0); Eosinophils % (auto) 6.9 % (0.0-7.0); Hematocrit 24.1 % (41.0-53.0); Lymphocytes % (auto) 12.3 % (10.0-50.0); Mean Corpuscular Hgb Conc. 32.3 g/dL (32.0-36.0); Mean Corpuscular Volume 89.1 fL (80.0-100.0); Monocytes % (auto) 8.6 % (0.0-12.0); Neutrophils % (auto) 70.3 % (37.0-80.0); Platelet Count (auto) 283 10^3/uL (140-450)
[2020-02-03 10:38] LABS: Albumin 2.8 g/dL (3.4-5.0); Calcium 8.5 mg/dL (8.5-10.1); Potassium 3.9 mmol/L (3.5-5.1)
[2020-02-03 10:41] LABS: BUN/Creatinine Ratio 21.3; Bilirubin, Total 0.6 mg/dL (0.2-1.0); Total Protein 6.9 g/dL (6.4-8.2)
--- NOTE | 2020-02-03 11:00 | NUR ---
NS STOPPED PER MD ORDERS PT BP 158/77. WILL CONTINUE TO MONITOR.
--- NOTE | 2020-02-03 11:15 | NUR ---
DOBUTAMINE IV STOPPED PT TO SEE MD MCGRATH AND SLOANE CULVER FOR EVAL AND TX.
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
--- NOTE | 2020-02-03 12:15 | NUR ---
EXAM: DR. MCGRATH IN ROOM FOR EXAM. PICTURES OF PT'S WOUNDS REVIEWED BY MD WITH PT. PT. STATES HE HAS NO OTHER FAMILY MEMBERS TO CALL OR RELY ON, AND THE SITUATION AT HOME IS BECOMING WORSE. HE TRIES TO STAY ISOLATED IN HIS ROOM. REPEAT H&H DRAWN STAT AFTER LABS SHOED DROP IN HGB OF ALMOST 2 GMS IN 3 DAYS WITH NO OBVIOUS SIGNS OR SYMPTOMS OF BLEEDING. NEW ORDERS FOR HOME HEALTH NURSING RECEIVED AND FOLLOWED UP ON BY MD, WITH DISCUSSION MADE BY MD TO PT. THAT THERE NEEDS TO BE APS INVOLVEMENT FOR PT. PROTECTION. PT. UNDERSTANDS RATIONALE AND NECESSITY FOR HOME HEALTH AND WISHES TO COMPLY.
--- NOTE | 2020-02-03 12:35 | NUR ---
PT. ASSISTED BACK TO CHF CLINIC FOR RESUMPTION OF DOBUTREX INFUSION PER MD ORDER.
--- NOTE | 2020-02-03 12:37 | NUR ---
PT STARTED BACK ON DOBUTAMINE IV @ 3MCG/KG/MIN PER MD ORDERS. VSS. WILL CONTINUE TO MONITOR.
[2020-02-03 13:16] LABS: Hematocrit 29.2 % (41.0-53.0); Hemoglobin 9.4 g/dL (13.5-17.5)
--- NOTE | 2020-02-03 13:20 | NUR ---
PT HAS A REDRAW H&H HGB 9.4
--- NOTE | 2020-02-03 13:25 | NUR ---
LABS: DR. MCGRATH ADVISED OF NEW LABS HGB OF 9.4. LAB TO BE CALLED FOR FOLLOW UP ON ERROR.
--- NOTE | 2020-02-03 13:25 | NUR ---
PT. MEDICATED WITH VIT. B12 1000MCG IM LFT DELT. PER MD ORDER.
--- NOTE | 2020-02-03 13:30 | NUR ---
Discharge Instructions See e-MAR for any mediations given with this visit. Patient education given on disease process. Patient verbalized understanding. Previous labs reviewed. Patient discharged in stable condition with after care instructions and follow up appointment ON MONDAY. NOTE DOBUTAMINE IV [id number] ADMIN BY MITCH [place] [id number] VIT B 12 IM ADMIN BY SLOANE Nolan DELTOID LOT# [id number] EXP 10/08
== END | disposition home or self-care (01) ==
LOC: CHF HDHVI 09:14
PROVIDERS: ATTEND Internal Medicine Cardiovascular Disease
DX: I11.0 Hypertensive heart disease with heart failure (principal); I50.23 Acute on chronic systolic (congestive) heart failure; D64.9 Anemia, unspecified; D51.9 Vitamin B12 deficiency anemia, unspecified; S41.111D Laceration without foreign body of right upper arm, subsequent encounter; R53.83 Other fatigue; I25.10 Atherosclerotic heart disease of native coronary artery without angina pectoris; I48.91 Unspecified atrial fibrillation; I27.21 Secondary pulmonary arterial hypertension; I25.2 Old myocardial infarction; I42.8 Other cardiomyopathies; J43.9 Emphysema, unspecified; K21.9 Gastro-esophageal reflux disease without esophagitis; E03.9 Hypothyroidism, unspecified; G89.29 Other chronic pain; J90 Pleural effusion, not elsewhere classified; E78.00 Pure hypercholesterolemia, unspecified; M19.90 Unspecified osteoarthritis, unspecified site; E43 Unspecified severe protein-calorie malnutrition; E78.5 Hyperlipidemia, unspecified; Z79.899 Other long term (current) drug therapy; Z85.810 Personal history of malignant neoplasm of tongue; Z87.891 Personal history of nicotine dependence; Z95.1 Presence of aortocoronary bypass graft; Z95.810 Presence of automatic (implantable) cardiac defibrillator; Z79.01 Long term (current) use of anticoagulants; Z90.49 Acquired absence of other specified parts of digestive tract; Z95.5 Presence of coronary angioplasty implant and graft
CPT/HCPCS: 36415; 80053; 80162; 83880; 85014; 85018; 85025; 96365; 96366; 96372; G0463; J1250; J3420; J7030; 96367

== ENCOUNTER → 2020-02-07 | Outpatient (CLI) | payer MEDICARE ==
[2020-02-07] VITALS (9 sets, daily range): BP systolic 126–169; BP diastolic 56–74
[~2020-02-07] MED LIST changes: -CYANOCOBALAMIN (B-12) 1000 MCG/1 ML VIAL IM ONE; -CYANOCOBALAMIN (B-12) 1000 MCG/1 ML VIAL ONE; -SODIUM CHLORIDE 0.9% 1,000 ML IV ONE
--- NOTE | 2020-02-07 08:15 | NUR ---
PT. TO CHF CLINIC FOR DOBUTAMINE INFUSION PER DR. MCGRATH. PT. STATES THAT HE NOTICED DARK STOOLS STARTING YESTERDAY. " SORT OF IN A 2 LAYER FORM, LIGHT AND DARK" PT. MAY SEE DR. MCGRATH THIS AM, WITH NOTED TREND IN REDUCTION IN HGB.
--- NOTE | 2020-02-07 08:25 | NUR ---
IV insertion IV access obtained, via clean sterile technique by inserting 22 gauge catheter at after attempt(s). IV secured properly. No trauma to site. Patient tolerated procedure well. STAT CBC SENT.
--- NOTE | 2020-02-07 08:31 | NUR ---
MEDS: DOBUTREX STARTED AT 5 MCG/KG/MIN. PER MD ORDER.
--- NOTE | 2020-02-07 08:32 | NUR ---
MED REC: DOBUTREX WAS ORDERED AND STARTED AT AT 3 MCG/KG/MIN.
[2020-02-07 09:23] LABS: Basophils # (auto) 0.1 10 ^3/uL (0-0.2); Eosinophils # (auto) 0.3 10 ^3/uL (0-0.8); Eosinophils % (auto) 4.4 % (0.0-7.0); Hematocrit 31.6 % (41.0-53.0); Hemoglobin 10.3 g/dL (13.5-17.5); Lymphocytes # (auto) 0.5 10 ^3/uL (0.4-5.4); Mean Corpuscular Hgb Conc. 32.7 g/dL (32.0-36.0); Mean Corpuscular Volume 88.6 fL (80.0-100.0); Monocytes # (auto) 0.5 10 ^3/uL (0-1.3); Monocytes % (auto) 6.9 % (0.0-12.0); Neutrophils # (auto) 5.6 10 ^3/uL (1.6-8.6); Neutrophils % (auto) 80.7 % (37.0-80.0); Nucleated Red Blood Cells % 0.1 %; Platelet Count (auto) 298 10^3/uL (140-450); Red Blood Cells 3.57 10^6/uL (4.5-5.90); Red Cell Distribution Width 15.7 % (11.8-14.3); White Blood Cell 6.9 10^3/uL (4.4-10.8)
--- NOTE | 2020-02-07 10:20 | NUR ---
Patient BP elevated, infusion paused.
--- NOTE | 2020-02-07 11:32 | NUR ---
IV removal IV DC'd with sterile technique, catheter fully intact. Pressure dressing applied to site. Patient tolerated procedure well.
--- NOTE | 2020-02-07 11:45 | NUR ---
Patient wound redressed, several small open areas similar to a skin tear covered with bacitracin, telfa non stick dressing and covered with Tegaderm.
--- NOTE | 2020-02-07 12:00 | NUR ---
CHF Clinic Discharge Instructions See e-MAR for any mediations given with this visit. Patient education given on disease process. Patient verbalized understanding. Previous labs reviewed. Patient discharged in stable condition with after care instructions and follow up appointment. Note Dobutamine [id number] admin by Sandoval CULVER. Wound care done by Loan CULVER. Prior Auth for [employer]circa started.
== END | disposition home or self-care (01) ==
LOC: CHF HDHVI 08:35
PROVIDERS: ATTEND Internal Medicine Cardiovascular Disease
DX: I11.0 Hypertensive heart disease with heart failure (principal); I50.42 Chronic combined systolic (congestive) and diastolic (congestive) heart failure; D64.9 Anemia, unspecified; S41.101D Unspecified open wound of right upper arm, subsequent encounter; I25.10 Atherosclerotic heart disease of native coronary artery without angina pectoris; I42.8 Other cardiomyopathies; I25.2 Old myocardial infarction; I27.21 Secondary pulmonary arterial hypertension; I48.91 Unspecified atrial fibrillation; J43.9 Emphysema, unspecified; K21.9 Gastro-esophageal reflux disease without esophagitis; E78.5 Hyperlipidemia, unspecified; E03.9 Hypothyroidism, unspecified; G89.29 Other chronic pain; J90 Pleural effusion, not elsewhere classified; E78.00 Pure hypercholesterolemia, unspecified; E43 Unspecified severe protein-calorie malnutrition; M19.90 Unspecified osteoarthritis, unspecified site; Z79.899 Other long term (current) drug therapy; Z85.810 Personal history of malignant neoplasm of tongue; Z87.891 Personal history of nicotine dependence; Z95.1 Presence of aortocoronary bypass graft; Z95.810 Presence of automatic (implantable) cardiac defibrillator; Z95.5 Presence of coronary angioplasty implant and graft; Z79.01 Long term (current) use of anticoagulants; Z90.49 Acquired absence of other specified parts of digestive tract
CPT/HCPCS: 36415; 85025; 96365; 96366; G0463; J1250

== ENCOUNTER → 2020-02-10 | Outpatient (CLI) | payer MEDICARE ==
[2020-02-10] VITALS (9 sets, daily range): BP systolic 125–164; BP diastolic 65–76
--- NOTE | 2020-02-10 09:55 | NUR ---
CLINIC PT ARRIVED TO THE CHF CLINIC FOR WEEKLY CHF EVAL AND TX PER MD ORDERS. A/OX4, AMBULATORY. PT ARRIVED ON HOME O2 2L N/C. BREATHING IS EVEN AND UNLABORED. PT HAS A WOUND ON THE ANDREW WHICH IS COVERED WITH A TEGADERM.
--- NOTE | 2020-02-10 10:15 | NUR ---
IV insertion IV access obtained, via clean sterile technique by inserting 22 gauge catheter at CHARLI after 2 attempt(s). IV secured properly. No trauma to site. Patient tolerated procedure well. NOTE INSERTED BY MITCH CULVER
--- NOTE | 2020-02-10 10:18 | NUR ---
DOBUTAMINE IV STARTED @ 3MCG/KG/MIN PER MD ORDERS. VSS. WILL CONTINUE TO MONITOR.
--- NOTE | 2020-02-10 11:45 | NUR ---
PT TOLERATING DOBUTAMINE. IV SITE BENIGN. VSS. WILL CONTINUE TO MONITOR.
--- NOTE | 2020-02-10 13:26 | NUR ---
WOUND CARE DONE BY MITCH CULVER SKIN TARE TO THE ANDREW, WOUND CLEANED WITH NS BACITRACIN APPLIED TO WOUND AREA PER MD ORDERS. NON STICK PAD APPLIED OVER, THEN COVERED WITH TEGADERM. NO ODOR OR DISCHARGE FROM WOUND
--- NOTE | 2020-02-10 13:35 | NUR ---
Discharge Instructions See e-MAR for any mediations given with this visit. Patient education given on disease process. Patient verbalized understanding. Previous labs reviewed. Patient discharged in stable condition with after care instructions and follow up appointment ON MONDAY. NOTE DOBUTAMINE IV [id number] ADMIN BY MITCH CULVERFAMILY SERVICE AIDE DONE BY MITCH CULVER
== END | disposition home or self-care (01) ==
LOC: CHF HDHVI 09:52
PROVIDERS: ATTEND Internal Medicine Cardiovascular Disease
DX: I11.0 Hypertensive heart disease with heart failure (principal); I50.42 Chronic combined systolic (congestive) and diastolic (congestive) heart failure; J43.9 Emphysema, unspecified; R53.83 Other fatigue; I25.10 Atherosclerotic heart disease of native coronary artery without angina pectoris; I27.21 Secondary pulmonary arterial hypertension; I48.91 Unspecified atrial fibrillation; I25.2 Old myocardial infarction; I42.8 Other cardiomyopathies; S41.101D Unspecified open wound of right upper arm, subsequent encounter; K21.9 Gastro-esophageal reflux disease without esophagitis; E03.9 Hypothyroidism, unspecified; J90 Pleural effusion, not elsewhere classified; G89.29 Other chronic pain; E78.00 Pure hypercholesterolemia, unspecified; M19.90 Unspecified osteoarthritis, unspecified site; E43 Unspecified severe protein-calorie malnutrition; Z90.49 Acquired absence of other specified parts of digestive tract; Z79.899 Other long term (current) drug therapy; Z85.810 Personal history of malignant neoplasm of tongue; Z87.891 Personal history of nicotine dependence; Z95.1 Presence of aortocoronary bypass graft; Z95.5 Presence of coronary angioplasty implant and graft; Z95.810 Presence of automatic (implantable) cardiac defibrillator; Z79.01 Long term (current) use of anticoagulants
CPT/HCPCS: 96365; 96366; G0463; J1250

== ENCOUNTER → 2020-02-14 | Outpatient (CLI) | payer MEDICARE ==
[~2020-02-14] VITALS: Ht 30.5 cm; Wt 55.1 kg
[2020-02-14] VITALS (9 sets, daily range): BP systolic 111–175; BP diastolic 49–80
[~2020-02-14] MED LIST changes: -BACITRACIN TOP OINT 1 UD PKG TOP ONE
--- NOTE | 2020-02-14 08:15 | NUR ---
CLINIC PT ARRIVED TO THE CHF CLINIC FOR WEEKLY CHF EVAL AND TX PER MD ORDERS. A/OX4, AMBULATORY, BREATHING IS EVEN AND UNLABORED. PT ARRIVED O2 SATS 88% ON RA. PLACED ON 2L O2 N/C SAT95% WITH O2. PT HAS A 2LB WT DECREASE SINCE LAST VISIT ON 02/10/20.
--- NOTE | 2020-02-14 08:25 | NUR ---
IV insertion IV access obtained, via clean sterile technique by inserting 22 gauge catheter at CHARLI after 1 attempt(s). IV secured properly. No trauma to site. Patient tolerated procedure well. NOTE INSERTED BY MITCH CULVER
--- NOTE | 2020-02-14 08:26 | NUR ---
DOBUTAMINE IV STARTED @ 3MCG/KG/MIN PER MD ORDERS. VSS. WILL CONTINUE TO MONITOR.
--- NOTE | 2020-02-14 09:55 | NUR ---
PT TOLERATING DOBUTAMINE INFUSION, IV SITE BENIGN, VSS, WILL CONTINUE TO MONITOR.
--- NOTE | 2020-02-14 10:00 | NUR ---
INR DONE BY ANTONELLA LUNA 2.8 PT ON 6MG WARFARIN. PT TO CONTINUE ON 6MG WARFARIN
--- NOTE | 2020-02-14 11:36 | NUR ---
Discharge Instructions See e-MAR for any mediations given with this visit. Patient education given on disease process. Patient verbalized understanding. Previous labs reviewed. Patient discharged in stable condition with after care instructions and follow up appointment ON MONDAY. NOTE DOBUTAMINE IV [id number] ADMIN BY MITCH CULVER INR DONE BY ANTONELLA LUNA 2.8
== END | disposition home or self-care (01) ==
LOC: CHF HDHVI 08:27
PROVIDERS: ATTEND Internal Medicine Cardiovascular Disease
DX: I11.0 Hypertensive heart disease with heart failure (principal); I50.42 Chronic combined systolic (congestive) and diastolic (congestive) heart failure; R53.83 Other fatigue; I25.10 Atherosclerotic heart disease of native coronary artery without angina pectoris; J43.9 Emphysema, unspecified; I27.21 Secondary pulmonary arterial hypertension; I48.91 Unspecified atrial fibrillation; I25.2 Old myocardial infarction; I42.8 Other cardiomyopathies; J90 Pleural effusion, not elsewhere classified; K21.9 Gastro-esophageal reflux disease without esophagitis; E03.9 Hypothyroidism, unspecified; G89.29 Other chronic pain; E78.00 Pure hypercholesterolemia, unspecified; E11.9 Type 2 diabetes mellitus without complications; M19.90 Unspecified osteoarthritis, unspecified site; E43 Unspecified severe protein-calorie malnutrition; E78.5 Hyperlipidemia, unspecified; Z79.899 Other long term (current) drug therapy; Z85.810 Personal history of malignant neoplasm of tongue; Z87.891 Personal history of nicotine dependence; Z95.1 Presence of aortocoronary bypass graft; Z95.5 Presence of coronary angioplasty implant and graft; Z90.49 Acquired absence of other specified parts of digestive tract; Z95.810 Presence of automatic (implantable) cardiac defibrillator; Z79.01 Long term (current) use of anticoagulants
CPT/HCPCS: 85610; 96365; 96366; G0463; J1250

== ENCOUNTER → 2020-02-17 | Outpatient (CLI) | payer MEDICARE ==
[2020-02-17] VITALS (9 sets, daily range): BP systolic 147–167; BP diastolic 66–85
[~2020-02-17] VITALS: Ht 30.5 cm; Wt 55.8 kg
[~2020-02-17] MED LIST changes: +BACITRACIN TOP OINT 1 UD PKG TOP ONE; +CYANOCOBALAMIN (B-12) 1000 MCG/1 ML VIAL IM ONE; +CYANOCOBALAMIN (B-12) 1000 MCG/1 ML VIAL ONE
--- NOTE | 2020-02-17 08:00 | NUR ---
CLINIC PT ARRIVED TO THE CHF CLINIC FOR WEEKLY CHF EVAL AND TX. A/OX4, AMBULATORY, ON HOME O2 2L N/C 94%SAT, BREATHING IS EVEN AND UNLABORED. PT HAS A SKIN TEAR ON ANDREW WHICH HAS BEEN TREATED IN CLINIC, WOUND IS HEALING BUT IS STILL WITH A SMALL TEAR. NO SIGNS OF INFECTION, NO ODOR.
--- NOTE | 2020-02-17 08:25 | NUR ---
IV insertion IV access obtained, via clean sterile technique by inserting 22 gauge catheter at CHARLI after 1 attempt(s). IV secured properly. No trauma to site. Patient tolerated procedure well. LABS DRAWN AND SENT. NOTE INSERTED BY MITCH CULVER
--- NOTE | 2020-02-17 08:31 | NUR ---
DOBUTAMINE IV STARTED @ 3MCG/KG/MIN PER MD ORDERS. VSS WILL CONTINUE TO MONITOR.
--- NOTE | 2020-02-17 09:55 | NUR ---
PT TOLERATING DOBUTAMINE. IV SITE BENIGN. VSS. WILL CONTINUE TO MONITOR.
--- NOTE | 2020-02-17 11:46 | NUR ---
WOUND CARE DONE BY MITCH CULVER WOUND CLEANED WITH NS, BACITRACIN PLACED ON WOUND AND COVERED WITH LARGE BANDAGE.
--- NOTE | 2020-02-17 11:50 | NUR ---
Discharge Instructions See e-MAR for any mediations given with this visit. Patient education given on disease process. Patient verbalized understanding. Previous labs reviewed. Patient discharged in stable condition with after care instructions and follow up appointment ON MONDAY. NOTE DOBUTAMINE IV [id number] ADMIN BY MITCH CULVER VIT B12 IM ADMIN BY MITCH CULVER L DELTOID LOT# [id number] EXP 10/08 WOUND CARE DONE BY MITCH CULVER
[2020-02-17 12:06] LABS: Basophils # (auto) 0 10 ^3/uL (0-0.2); Basophils % (auto) 0.7 % (0.0-2.0); Eosinophils # (auto) 0.2 10 ^3/uL (0-0.8); Eosinophils % (auto) 3.7 % (0.0-7.0); Hematocrit 33.2 % (41.0-53.0); Hemoglobin 10.7 g/dL (13.5-17.5); Lymphocytes # (auto) 0.5 10 ^3/uL (0.4-5.4); Lymphocytes % (auto) 8.3 % (10.0-50.0); Mean Corpuscular Hemoglobin 28.8 pg (28.0-32.0); Mean Corpuscular Hgb Conc. 32.4 g/dL (32.0-36.0); Monocytes # (auto) 0.4 10 ^3/uL (0-1.3); Monocytes % (auto) 7.3 % (0.0-12.0); Neutrophils # (auto) 4.4 10 ^3/uL (1.6-8.6); Nucleated Red Blood Cells % 0.2 %; Platelet Count (auto) 218 10^3/uL (140-450); Red Blood Cells 3.73 10^6/uL (4.5-5.90); Red Cell Distribution Width 15.7 % (11.8-14.3); White Blood Cell 5.5 10^3/uL (4.4-10.8)
[2020-02-17 12:20] LABS: Calcium 8.4 mg/dL (8.5-10.1); Magnesium 2.4 mg/dL (1.6-2.6); Potassium 4.1 mmol/L (3.5-5.1)
[2020-02-17 12:23] LABS: BUN/Creatinine Ratio 26.4
== END | disposition home or self-care (01) ==
LOC: CHF HDHVI 08:02
PROVIDERS: ATTEND Internal Medicine Cardiovascular Disease
DX: I11.0 Hypertensive heart disease with heart failure (principal); I50.23 Acute on chronic systolic (congestive) heart failure; D64.9 Anemia, unspecified; E83.40 Disorders of magnesium metabolism, unspecified; R53.83 Other fatigue; I25.10 Atherosclerotic heart disease of native coronary artery without angina pectoris; I27.21 Secondary pulmonary arterial hypertension; I48.91 Unspecified atrial fibrillation; I25.2 Old myocardial infarction; I42.8 Other cardiomyopathies; S41.111D Laceration without foreign body of right upper arm, subsequent encounter; J43.9 Emphysema, unspecified; K21.9 Gastro-esophageal reflux disease without esophagitis; G89.29 Other chronic pain; J90 Pleural effusion, not elsewhere classified; M19.90 Unspecified osteoarthritis, unspecified site; E78.00 Pure hypercholesterolemia, unspecified; E78.5 Hyperlipidemia, unspecified; E03.9 Hypothyroidism, unspecified; E43 Unspecified severe protein-calorie malnutrition; E11.9 Type 2 diabetes mellitus without complications; Z85.810 Personal history of malignant neoplasm of tongue; Z87.891 Personal history of nicotine dependence; Z95.1 Presence of aortocoronary bypass graft; Z79.899 Other long term (current) drug therapy; Z79.01 Long term (current) use of anticoagulants; Z95.810 Presence of automatic (implantable) cardiac defibrillator; Z90.49 Acquired absence of other specified parts of digestive tract
CPT/HCPCS: 36415; 80048; 83735; 83880; 85025; 96365; 96366; 96372; G0463; J1250; J3420

== ENCOUNTER → 2020-02-21 | Outpatient (CLI) | payer MEDICARE ==
[2020-02-21] VITALS (9 sets, daily range): BP systolic 117–165; BP diastolic 53–74
[~2020-02-21] VITALS: Ht 177.8 cm; Wt 55.0 kg
[~2020-02-21] MED LIST changes: -BACITRACIN TOP OINT 1 UD PKG TOP ONE; -CYANOCOBALAMIN (B-12) 1000 MCG/1 ML VIAL IM ONE; -CYANOCOBALAMIN (B-12) 1000 MCG/1 ML VIAL ONE
== END | disposition home or self-care (01) ==
LOC: CHF HDHVI 08:12
PROVIDERS: ATTEND Internal Medicine Cardiovascular Disease
DX: I11.0 Hypertensive heart disease with heart failure (principal); I50.22 Chronic systolic (congestive) heart failure; R53.83 Other fatigue; I25.10 Atherosclerotic heart disease of native coronary artery without angina pectoris; I25.2 Old myocardial infarction; I42.8 Other cardiomyopathies; I27.21 Secondary pulmonary arterial hypertension; I48.91 Unspecified atrial fibrillation; J43.9 Emphysema, unspecified; R06.02 Shortness of breath; K21.9 Gastro-esophageal reflux disease without esophagitis; E78.5 Hyperlipidemia, unspecified; E03.9 Hypothyroidism, unspecified; G89.29 Other chronic pain; J90 Pleural effusion, not elsewhere classified; E78.00 Pure hypercholesterolemia, unspecified; M19.90 Unspecified osteoarthritis, unspecified site; E43 Unspecified severe protein-calorie malnutrition; Z79.899 Other long term (current) drug therapy; Z85.810 Personal history of malignant neoplasm of tongue; Z87.891 Personal history of nicotine dependence; Z95.1 Presence of aortocoronary bypass graft; Z79.01 Long term (current) use of anticoagulants; Z95.810 Presence of automatic (implantable) cardiac defibrillator
CPT/HCPCS: 96365; 96366; G0463; J1250

== ENCOUNTER → 2020-02-26 | Outpatient (CLI) | payer MEDICARE ==
[2020-02-26] VITALS (9 sets, daily range): BP systolic 128–174; BP diastolic 60–74
--- NOTE | 2020-02-26 08:08 | NUR ---
Patient into clinic for scheduled infusion, AAOx4, ambulatory, breathing even and unlabored.
--- NOTE | 2020-02-26 10:00 | NUR ---
Patient speaking with staff and other patients, denies any symptoms. Will continue to monitor.
--- NOTE | 2020-02-26 11:40 | NUR ---
IV removal IV DC'd with sterile technique, catheter fully intact. Pressure dressing applied to site. Patient tolerated procedure well.
--- NOTE | 2020-02-26 11:45 | NUR ---
CHF Clinic Discharge Instructions See e-MAR for any mediations given with this visit. Patient education given on disease process. Patient verbalized understanding. Previous labs reviewed. Patient discharged in stable condition with after care instructions and follow up appointment. Note Dobutamine [id number] admin by Sandoval CULVER. 6MWT admin by Mary LUNA.
[2020-02-26 12:06] LABS: Basophils # (auto) 0 10 ^3/uL (0-0.2); Basophils % (auto) 0.9 % (0.0-2.0); Eosinophils # (auto) 0.3 10 ^3/uL (0-0.8); Eosinophils % (auto) 5.4 % (0.0-7.0); Hematocrit 30.9 % (41.0-53.0); Hemoglobin 10.1 g/dL (13.5-17.5); Lymphocytes # (auto) 0.7 10 ^3/uL (0.4-5.4); Lymphocytes % (auto) 13.9 % (10.0-50.0); Mean Corpuscular Hgb Conc. 32.5 g/dL (32.0-36.0); Mean Corpuscular Volume 89.1 fL (80.0-100.0); Monocytes # (auto) 0.3 10 ^3/uL (0-1.3); Monocytes % (auto) 5.9 % (0.0-12.0); Neutrophils # (auto) 3.8 10 ^3/uL (1.6-8.6); Neutrophils % (auto) 73.9 % (37.0-80.0); Nucleated Red Blood Cells % 0.1 %; Platelet Count (auto) 232 10^3/uL (140-450); Red Blood Cells 3.47 10^6/uL (4.5-5.90); Red Cell Distribution Width 15.3 % (11.8-14.3); White Blood Cell 5.1 10^3/uL (4.4-10.8)
[2020-02-26 12:10] LABS: Albumin 3.3 g/dL (3.4-5.0); Bilirubin, Total 0.7 mg/dL (0.2-1.0); Calcium 8.5 mg/dL (8.5-10.1); Magnesium 2.6 mg/dL (1.6-2.6); Total Protein 7.8 g/dL (6.4-8.2)
== END | disposition home or self-care (01) ==
LOC: CHF HDHVI 08:27
PROVIDERS: ATTEND Internal Medicine Cardiovascular Disease
DX: I11.0 Hypertensive heart disease with heart failure (principal); I50.23 Acute on chronic systolic (congestive) heart failure; R06.02 Shortness of breath; D51.3 Other dietary vitamin B12 deficiency anemia; D64.9 Anemia, unspecified; E11.9 Type 2 diabetes mellitus without complications; E55.9 Vitamin D deficiency, unspecified; R00.2 Palpitations; R53.1 Weakness; R30.0 Dysuria; C61 Malignant neoplasm of prostate; K21.9 Gastro-esophageal reflux disease without esophagitis; J43.9 Emphysema, unspecified; I25.10 Atherosclerotic heart disease of native coronary artery without angina pectoris; I25.2 Old myocardial infarction; E78.5 Hyperlipidemia, unspecified; E78.00 Pure hypercholesterolemia, unspecified; E03.9 Hypothyroidism, unspecified; G89.29 Other chronic pain; Z79.899 Other long term (current) drug therapy; Z87.891 Personal history of nicotine dependence; Z95.810 Presence of automatic (implantable) cardiac defibrillator; Z90.49 Acquired absence of other specified parts of digestive tract; Z79.01 Long term (current) use of anticoagulants
CPT/HCPCS: 36415; 80053; 82306; 82607; 83735; 83880; 84443; 85025; 94618; 96365; 96366; G0463; J1250

== ENCOUNTER → 2020-02-27 | Outpatient (CLI) | payer MEDICARE ==
[~2020-02-27] MED LIST changes: -DOBUTamine 1000MCG/ML 250 ML IV ONE
== END | disposition home or self-care (01) ==
LOC: Rad HDHVI 09:50
PROVIDERS: ATTEND Internal Medicine Cardiovascular Disease
DX: I50.23 Acute on chronic systolic (congestive) heart failure (principal)

== ENCOUNTER → 2020-02-28 | Outpatient (CLI) | payer MEDICARE ==
[2020-02-28] VITALS (9 sets, daily range): BP systolic 117–167; BP diastolic 48–84
[~2020-02-28] MED LIST changes: +DOBUTamine 1000MCG/ML 250 ML IV ONE
== END | disposition home or self-care (01) ==
LOC: CHF HDHVI 08:05
PROVIDERS: ATTEND Internal Medicine Cardiovascular Disease
DX: I11.0 Hypertensive heart disease with heart failure (principal); I50.22 Chronic systolic (congestive) heart failure; I25.10 Atherosclerotic heart disease of native coronary artery without angina pectoris; I25.2 Old myocardial infarction; I42.8 Other cardiomyopathies; I27.21 Secondary pulmonary arterial hypertension; I48.91 Unspecified atrial fibrillation; J43.9 Emphysema, unspecified; E78.5 Hyperlipidemia, unspecified; K21.9 Gastro-esophageal reflux disease without esophagitis; E03.9 Hypothyroidism, unspecified; G89.29 Other chronic pain; E78.00 Pure hypercholesterolemia, unspecified; E11.9 Type 2 diabetes mellitus without complications; M19.90 Unspecified osteoarthritis, unspecified site; E43 Unspecified severe protein-calorie malnutrition; Z95.5 Presence of coronary angioplasty implant and graft; Z79.899 Other long term (current) drug therapy; Z95.1 Presence of aortocoronary bypass graft; Z90.49 Acquired absence of other specified parts of digestive tract; Z95.810 Presence of automatic (implantable) cardiac defibrillator; Z79.01 Long term (current) use of anticoagulants
CPT/HCPCS: 96365; 96366; G0463; J1250

== ENCOUNTER → 2020-03-02 | Outpatient (CLI) | payer MEDICARE ==
[2020-03-02] VITALS (9 sets, daily range): BP systolic 119–156; BP diastolic 53–77
[~2020-03-02] MED LIST changes: +CYANOCOBALAMIN (B-12) 1000 MCG/1 ML VIAL IM ONE; +CYANOCOBALAMIN (B-12) 1000 MCG/1 ML VIAL ONE
--- NOTE | 2020-03-02 08:05 | NUR ---
PT. TO CHF CLINIC FOR DOBUTAMINE INFUSION PER MD ORDER O2 SATS ON RA 88-90%. O2 PLACED AT 2L/NC. AOX4, PWD. PT. STATES HE DID NOT TAKE HIS AM MEDS THIS MORNING BEFORE CLINIC.. ORDERS RECEIVED AND CARRIED OUT. SEE NSG ASSESS.
--- NOTE | 2020-03-02 08:17 | NUR ---
MEDS: PT. STARTED ON DOBTAMINE DRIP AT 3 MCG/KG/MIN PER MD ORDER.
--- NOTE | 2020-03-02 08:20 | NUR ---
MEDS: PT. TOOK HIS OWN AM DOSE OF ENTRESTO 24/26MG PO PER MD ORDER. B/P 155/53, 71.
--- NOTE | 2020-03-02 08:47 | NUR ---
MEDS:PT. MEDICATED WITH VIT. B12 1000MCG IM LFT DELT.
--- NOTE | 2020-03-02 09:52 | NUR ---
PT TOLERATING DOBUTAMINE INFUSION. IV SITE BENIGN. VSS. WILL CONTINUE TO MONITOR.
--- NOTE | 2020-03-02 11:22 | NUR ---
IV removal IV DC'd with sterile technique, catheter fully intact. Pressure dressing applied to site. Patient tolerated procedure well. Discharged with aftercare instructions per MD. NOTE: REMOVED BY JASON CULVER
--- NOTE | 2020-03-02 11:30 | NUR ---
Discharge Instructions See e-MAR for any mediations given with this visit. Patient education given on disease process. Patient verbalized understanding. Previous labs reviewed. Patient discharged in stable condition with after care instructions and follow up appointment ON MONDAY. NOTE DOBUTAMINE IV [id number] ADMIN BY MITCH CULVER VIT B12 IM ADMIN BY SLOANE CULVER L DELTOID LOT# [id number] EXP 10/09
[2020-03-02 12:25] LABS: Potassium 4.1 mmol/L (3.5-5.1)
[2020-03-02 12:27] LABS: Calcium 8.8 mg/dL (8.5-10.1)
== END | disposition home or self-care (01) ==
LOC: CHF HDHVI 08:18
PROVIDERS: ATTEND Internal Medicine Cardiovascular Disease
DX: I11.0 Hypertensive heart disease with heart failure (principal); I50.23 Acute on chronic systolic (congestive) heart failure; I25.10 Atherosclerotic heart disease of native coronary artery without angina pectoris; I48.91 Unspecified atrial fibrillation; I27.21 Secondary pulmonary arterial hypertension; I25.2 Old myocardial infarction; I42.8 Other cardiomyopathies; J43.9 Emphysema, unspecified; D64.9 Anemia, unspecified; K21.9 Gastro-esophageal reflux disease without esophagitis; E78.5 Hyperlipidemia, unspecified; E03.9 Hypothyroidism, unspecified; G89.29 Other chronic pain; E78.00 Pure hypercholesterolemia, unspecified; E11.9 Type 2 diabetes mellitus without complications; M19.90 Unspecified osteoarthritis, unspecified site; E43 Unspecified severe protein-calorie malnutrition; J90 Pleural effusion, not elsewhere classified; Z90.49 Acquired absence of other specified parts of digestive tract; Z79.899 Other long term (current) drug therapy; Z79.01 Long term (current) use of anticoagulants; Z95.1 Presence of aortocoronary bypass graft; Z87.891 Personal history of nicotine dependence; Z85.810 Personal history of malignant neoplasm of tongue; Z95.5 Presence of coronary angioplasty implant and graft; Z95.810 Presence of automatic (implantable) cardiac defibrillator
CPT/HCPCS: 36415; 80048; 83880; 96365; 96366; 96372; G0463; J1250; J3420

== ENCOUNTER → 2020-03-09 | Outpatient (CLI) | payer MEDICARE ==
[2020-03-09] VITALS (9 sets, daily range): BP systolic 110–161; BP diastolic 50–75
[~2020-03-09] MED LIST changes: -CYANOCOBALAMIN (B-12) 1000 MCG/1 ML VIAL IM ONE; -CYANOCOBALAMIN (B-12) 1000 MCG/1 ML VIAL ONE
[2020-03-09 12:10] LABS: Basophils # (auto) 0 10 ^3/uL (0-0.2); Basophils % (auto) 0.3 % (0.0-2.0); Eosinophils # (auto) 0.2 10 ^3/uL (0-0.8); Hematocrit 31.9 % (41.0-53.0); Hemoglobin 10.3 g/dL (13.5-17.5); Lymphocytes # (auto) 0.6 10 ^3/uL (0.4-5.4); Lymphocytes % (auto) 9.3 % (10.0-50.0); Mean Corpuscular Hemoglobin 28.7 pg (28.0-32.0); Mean Corpuscular Hgb Conc. 32.4 g/dL (32.0-36.0); Mean Corpuscular Volume 88.6 fL (80.0-100.0); Monocytes # (auto) 0.4 10 ^3/uL (0-1.3); Neutrophils # (auto) 5.5 10 ^3/uL (1.6-8.6); Neutrophils % (auto) 81.4 % (37.0-80.0); Nucleated Red Blood Cells % 0.1 %; Platelet Count (auto) 262 10^3/uL (140-450); Red Cell Distribution Width 15.7 % (11.8-14.3); White Blood Cell 6.7 10^3/uL (4.4-10.8)
[2020-03-09 12:19] LABS: Potassium 4.1 mmol/L (3.5-5.1)
[2020-03-09 12:28] LABS: BUN/Creatinine Ratio 24.2; Magnesium 2.7 mg/dL (1.6-2.6)
== END | disposition home or self-care (01) ==
LOC: CHF HDHVI 08:22
PROVIDERS: ATTEND Internal Medicine Cardiovascular Disease
DX: I11.0 Hypertensive heart disease with heart failure (principal); I50.23 Acute on chronic systolic (congestive) heart failure; I25.10 Atherosclerotic heart disease of native coronary artery without angina pectoris; J43.9 Emphysema, unspecified; K21.9 Gastro-esophageal reflux disease without esophagitis; E78.5 Hyperlipidemia, unspecified; E78.00 Pure hypercholesterolemia, unspecified; E11.9 Type 2 diabetes mellitus without complications; I48.91 Unspecified atrial fibrillation; M19.90 Unspecified osteoarthritis, unspecified site; I25.2 Old myocardial infarction; E03.9 Hypothyroidism, unspecified; Z79.01 Long term (current) use of anticoagulants; Z79.899 Other long term (current) drug therapy; Z87.891 Personal history of nicotine dependence; Z95.1 Presence of aortocoronary bypass graft; Z90.49 Acquired absence of other specified parts of digestive tract; Z85.810 Personal history of malignant neoplasm of tongue
CPT/HCPCS: 36415; 80048; 83735; 83880; 85025; 96365; 96366; G0463; J1250

== ENCOUNTER → 2020-03-13 | Outpatient (CLI) | payer MEDICARE ==
[2020-03-13] VITALS (10 sets, daily range): BP systolic 123–165; BP diastolic 60–78
[~2020-03-13] VITALS: Ht 30.5 cm; Wt 56.5 kg
[~2020-03-13] MED LIST changes: +BACITRACIN TOP OINT 1 UD PKG TOP ONE; +DOBUTamine 1000MCG/ML 250 ML IV SCH
--- NOTE | 2020-03-13 08:00 | NUR ---
PT. TO CHF CLINIC FOR DOBUTAMINE INFUSION PER DR. MCGRATH. WT. UP SLIGHTLY SINCE LAST TX. PT. ALSO PRESENTS WITH SKIN TEAR TO RT UPPER ARM, RE-OPENED WOUND THAT DR. MCGRATH HAD EXAMINED AND GIVEN ORDERS FOR. NEW ORDERS RECEIVED AND CARRIED OUT. SEE NSG ASSESS.
--- NOTE | 2020-03-13 08:10 | NUR ---
IV insertion IV access obtained, via clean sterile technique by inserting 22 gauge catheter at after attempt(s). IV secured properly. No trauma to site. Patient tolerated procedure well.
--- NOTE | 2020-03-13 08:14 | NUR ---
MEDS: DOBUTREX STARTED AT 3 MCG PER MD ORDER.
--- NOTE | 2020-03-13 08:30 | NUR ---
WOUND CARE: WOUND CARE GIVEN TO RT UPPER ARM PER MD ORDER. SEE WOUND CARE NOTES FOR SPECIFIC APPLICATION INSTRUCTIONS.
--- NOTE | 2020-03-13 10:12 | NUR ---
PT TO BACK OFFICE FOR VISIT WITH MD. DOBUTAMINE INFUSION PAUSED.
--- NOTE | 2020-03-13 10:40 | NUR ---
PT RETURNED TO CLINIC FROM BACK OFFICE. VSS. DOBUTAMINE INFUSION RESTARTED.
--- NOTE | 2020-03-13 11:50 | NUR ---
Discharge Instructions See e-MAR for any mediations given with this visit. Patient education given on disease process. Patient verbalized understanding. Previous labs reviewed. Patient discharged in stable condition with after care instructions and follow up appointment ON MONDAY. NOTE DOBUTAMINE IV [id number] ADMIN BY MITCH CULVERAR MANAGER DONE BY ANTONELLA LUNA
== END | disposition home or self-care (01) ==
LOC: CHF HDHVI 08:10
PROVIDERS: ATTEND Internal Medicine Cardiovascular Disease
DX: I11.0 Hypertensive heart disease with heart failure (principal); I50.23 Acute on chronic systolic (congestive) heart failure; I25.10 Atherosclerotic heart disease of native coronary artery without angina pectoris; I25.2 Old myocardial infarction; I27.21 Secondary pulmonary arterial hypertension; I48.91 Unspecified atrial fibrillation; I42.8 Other cardiomyopathies; S41.111D Laceration without foreign body of right upper arm, subsequent encounter; J43.9 Emphysema, unspecified; K21.9 Gastro-esophageal reflux disease without esophagitis; E78.5 Hyperlipidemia, unspecified; E03.9 Hypothyroidism, unspecified; E78.00 Pure hypercholesterolemia, unspecified; E11.9 Type 2 diabetes mellitus without complications; M19.90 Unspecified osteoarthritis, unspecified site; G89.29 Other chronic pain; J90 Pleural effusion, not elsewhere classified; E43 Unspecified severe protein-calorie malnutrition; Z79.01 Long term (current) use of anticoagulants; Z90.49 Acquired absence of other specified parts of digestive tract; Z95.5 Presence of coronary angioplasty implant and graft; Z79.899 Other long term (current) drug therapy; Z85.810 Personal history of malignant neoplasm of tongue; Z87.891 Personal history of nicotine dependence; Z95.1 Presence of aortocoronary bypass graft; Z95.810 Presence of automatic (implantable) cardiac defibrillator
CPT/HCPCS: 96365; 96366; G0463; J1250

== ENCOUNTER → 2020-03-16 | Outpatient (CLI) | payer MEDICARE ==
[~2020-03-16] VITALS: Ht 30.5 cm; Wt 56.0 kg
[2020-03-16] VITALS (9 sets, daily range): BP systolic 118–168; BP diastolic 60–78
[~2020-03-16] MED LIST changes: -DOBUTamine 1000MCG/ML 250 ML IV SCH
--- NOTE | 2020-03-16 08:10 | NUR ---
CLINIC PT ARRIVED TO THE CHF CLINIC FOR WEEKLY CHF EVAL AND TX. A/OX4, AMBULATORY, BREATHING IS EVEN AND UNLABORED. PT HAS A SKIN TEAR ON THE ANDREW WITH BANDAGE STILL ON PLACED ON 03/13/20 HERE IN CLINIC.
--- NOTE | 2020-03-16 08:21 | NUR ---
DOBUTAMINE IV STARTED @ 3MCG/KG/MIN PER MD ORDERS. VSS. WILL CONTINUE TO MONITOR.
--- NOTE | 2020-03-16 09:22 | NUR ---
OLD DRESSING REMOVED, SKIN TEAR CLEANED WITH NS, BACITRACIN PLACED ON WOUND THEN COVERED WITH NO STICK PAD, TEGADERM PLACED OVER. NO ODOR OR SIGNS OF INFECTION ON WOUND.
--- NOTE | 2020-03-16 09:35 | NUR ---
PT TOLERATING DOBUTAMINE INFUSION. IV SITE BENIGN, VSS, WILL CONTINUE TO MONITOR.
--- NOTE | 2020-03-16 11:28 | NUR ---
Discharge Instructions See e-MAR for any mediations given with this visit. Patient education given on disease process. Patient verbalized understanding. Previous labs reviewed. Patient discharged in stable condition with after care instructions and follow up appointment ON MONDAY. NOTE DOBUTAMINE IV [id number] ADMIN BY MITCH CULVERCHILDREN'S SERVICE SUPERVISOR DONE BY MITCH CULVER
[2020-03-16 11:53] LABS: Basophils # (auto) 0 10 ^3/uL (0-0.2); Basophils % (auto) 0.9 % (0.0-2.0); Eosinophils # (auto) 0.2 10 ^3/uL (0-0.8); Eosinophils % (auto) 5.1 % (0.0-7.0); Hematocrit 30.2 % (41.0-53.0); Hemoglobin 10.2 g/dL (13.5-17.5); Lymphocytes # (auto) 0.7 10 ^3/uL (0.4-5.4); Lymphocytes % (auto) 14.6 % (10.0-50.0); Mean Corpuscular Hemoglobin 29.8 pg (28.0-32.0); Mean Corpuscular Hgb Conc. 33.8 g/dL (32.0-36.0); Mean Corpuscular Volume 88.1 fL (80.0-100.0); Monocytes # (auto) 0.3 10 ^3/uL (0-1.3); Monocytes % (auto) 6.8 % (0.0-12.0); Neutrophils # (auto) 3.5 10 ^3/uL (1.6-8.6); Neutrophils % (auto) 72.6 % (37.0-80.0); Nucleated Red Blood Cells % 0.1 %; Platelet Count (auto) 255 10^3/uL (140-450); Red Blood Cells 3.43 10^6/uL (4.5-5.90); Red Cell Distribution Width 15.6 % (11.8-14.3); White Blood Cell 4.9 10^3/uL (4.4-10.8)
[2020-03-16 12:08] LABS: Magnesium 2.6 mg/dL (1.6-2.6)
[2020-03-16 15:23] LABS: Calcium 8.9 mg/dL (8.5-10.1)
== END | disposition home or self-care (01) ==
LOC: CHF HDHVI 08:18
PROVIDERS: ATTEND Internal Medicine Cardiovascular Disease
DX: I11.0 Hypertensive heart disease with heart failure (principal); I50.23 Acute on chronic systolic (congestive) heart failure; I49.9 Cardiac arrhythmia, unspecified; D64.9 Anemia, unspecified; R53.83 Other fatigue; S41.111D Laceration without foreign body of right upper arm, subsequent encounter; I25.10 Atherosclerotic heart disease of native coronary artery without angina pectoris; I27.21 Secondary pulmonary arterial hypertension; I48.91 Unspecified atrial fibrillation; I25.2 Old myocardial infarction; I42.8 Other cardiomyopathies; J43.9 Emphysema, unspecified; J90 Pleural effusion, not elsewhere classified; K21.9 Gastro-esophageal reflux disease without esophagitis; E03.9 Hypothyroidism, unspecified; G89.29 Other chronic pain; E78.00 Pure hypercholesterolemia, unspecified; E11.9 Type 2 diabetes mellitus without complications; M19.90 Unspecified osteoarthritis, unspecified site; E43 Unspecified severe protein-calorie malnutrition; Z79.899 Other long term (current) drug therapy; Z85.810 Personal history of malignant neoplasm of tongue; Z87.891 Personal history of nicotine dependence; Z95.1 Presence of aortocoronary bypass graft; Z95.810 Presence of automatic (implantable) cardiac defibrillator; Z95.5 Presence of coronary angioplasty implant and graft; Z79.01 Long term (current) use of anticoagulants; Z90.49 Acquired absence of other specified parts of digestive tract; Z86.73 Personal history of transient ischemic attack (TIA), and cerebral infarction without residual deficits
CPT/HCPCS: 36415; 80048; 83735; 83880; 85025; 96365; 96366; G0463; J1250

== ENCOUNTER → 2020-03-20 | Outpatient (CLI) | payer MEDICARE ==
[2020-03-20] VITALS (9 sets, daily range): BP systolic 112–166; BP diastolic 54–79
--- NOTE | 2020-03-20 08:20 | NUR ---
CLINIC PT ARRIVED TO THE CHF CLINIC FOR WEEKLY CHF EVAL AND TX. A/OX4, AMBULATORY, BREATHING IS EVEN AND UNLABORED. PT HAS A SKIN TEAR ON THE ANDREW.
--- NOTE | 2020-03-20 08:47 | NUR ---
DOBUTAMINE IV STARTED @ 3MCG/KG/MIN PER MD ORDERS. VSS. WILL CONTINUE TO MONITOR.
--- NOTE | 2020-03-20 08:51 | NUR ---
WOUND CARE PT HAS A SKIN TEAR ON THE ANDREW. WOUND WAS CLEANED WITH NS BACITRACIN PLACED OVER OPEN WOUND AREA AND COVERED WITH NON STICK PAD TEGADERM PLACED OVER PAD.
--- NOTE | 2020-03-20 10:01 | NUR ---
PT TOLERATING DOBUTAMINE IV. IV SITE BENIGN. VSS. WILL CONTINUE TOP MONITOR.
--- NOTE | 2020-03-20 11:55 | NUR ---
Discharge Instructions See e-MAR for any mediations given with this visit. Patient education given on disease process. Patient verbalized understanding. Previous labs reviewed. Patient discharged in stable condition with after care instructions and follow up appointment ON MONDAY. NOTE DOBUTAMINE IV [id number] ADMIN BY MITCH CULVERDENTAL HYGIENIST DONE BY MITCH CULVER INR DONE BY ANTONELLA LUNA
== END | disposition home or self-care (01) ==
LOC: CHF HDHVI 08:31
PROVIDERS: ATTEND Internal Medicine Cardiovascular Disease
DX: I11.0 Hypertensive heart disease with heart failure (principal); I50.23 Acute on chronic systolic (congestive) heart failure; I25.10 Atherosclerotic heart disease of native coronary artery without angina pectoris; I27.21 Secondary pulmonary arterial hypertension; I42.8 Other cardiomyopathies; I48.91 Unspecified atrial fibrillation; I25.2 Old myocardial infarction; J43.9 Emphysema, unspecified; K21.9 Gastro-esophageal reflux disease without esophagitis; S41.111D Laceration without foreign body of right upper arm, subsequent encounter; G89.29 Other chronic pain; E78.00 Pure hypercholesterolemia, unspecified; E03.9 Hypothyroidism, unspecified; E11.9 Type 2 diabetes mellitus without complications; J90 Pleural effusion, not elsewhere classified; E43 Unspecified severe protein-calorie malnutrition; E78.5 Hyperlipidemia, unspecified; M19.90 Unspecified osteoarthritis, unspecified site; Z79.899 Other long term (current) drug therapy; Z85.810 Personal history of malignant neoplasm of tongue; Z87.891 Personal history of nicotine dependence; Z95.1 Presence of aortocoronary bypass graft; Z95.810 Presence of automatic (implantable) cardiac defibrillator; Z79.01 Long term (current) use of anticoagulants; Z90.49 Acquired absence of other specified parts of digestive tract; Z95.5 Presence of coronary angioplasty implant and graft
CPT/HCPCS: 96365; 96366; G0463; J1250

== ENCOUNTER → 2020-03-23 | Outpatient (CLI) | payer MEDICARE ==
[2020-03-23] VITALS (9 sets, daily range): BP systolic 110–165; BP diastolic 52–82
[~2020-03-23] VITALS: Ht 30.5 cm; Wt 55.5 kg
[2020-03-23 12:51] LABS: Potassium 4.2 mmol/L (3.5-5.1)
== END | disposition home or self-care (01) ==
LOC: CHF HDHVI 08:36
PROVIDERS: ATTEND Internal Medicine Cardiovascular Disease
DX: I11.0 Hypertensive heart disease with heart failure (principal); I50.23 Acute on chronic systolic (congestive) heart failure; I25.10 Atherosclerotic heart disease of native coronary artery without angina pectoris; I25.2 Old myocardial infarction; I48.91 Unspecified atrial fibrillation; I27.21 Secondary pulmonary arterial hypertension; I42.8 Other cardiomyopathies; J43.9 Emphysema, unspecified; K21.9 Gastro-esophageal reflux disease without esophagitis; R53.83 Other fatigue; E78.5 Hyperlipidemia, unspecified; E03.9 Hypothyroidism, unspecified; S41.111D Laceration without foreign body of right upper arm, subsequent encounter; G89.29 Other chronic pain; J90 Pleural effusion, not elsewhere classified; E78.00 Pure hypercholesterolemia, unspecified; E11.9 Type 2 diabetes mellitus without complications; M19.90 Unspecified osteoarthritis, unspecified site; Z79.899 Other long term (current) drug therapy; Z85.810 Personal history of malignant neoplasm of tongue; Z95.5 Presence of coronary angioplasty implant and graft; Z95.1 Presence of aortocoronary bypass graft; Z79.01 Long term (current) use of anticoagulants; Z90.49 Acquired absence of other specified parts of digestive tract; Z87.891 Personal history of nicotine dependence; Z86.73 Personal history of transient ischemic attack (TIA), and cerebral infarction without residual deficits
CPT/HCPCS: 36415; 82565; 83880; 84132; 84520; 96365; 96366; G0463; J1250

== ENCOUNTER → 2020-03-27 | Outpatient (CLI) | payer MEDICARE ==
[2020-03-27] VITALS (9 sets, daily range): BP systolic 101–149; BP diastolic 46–74
[~2020-03-27] MED LIST changes: -BACITRACIN TOP OINT 1 UD PKG TOP ONE
--- NOTE | 2020-03-27 08:21 | NUR ---
CLINIC PT ARRIVED TO THE CHF CLINIC FOR WEEKLY CHF EVAL AND TX. A/OX4, AMBULATORY, BREATHING IS EVEN AND UNLABORED.
--- NOTE | 2020-03-27 08:31 | NUR ---
DOBUTAMINE IV STARTED @ 3.5 MCG/KG/MIN PER MD ORDERS. VSS. WILL CONTINUE TO MONITOR.
--- NOTE | 2020-03-27 10:28 | NUR ---
PT TOLERATING DOBUTAMINE INFUSION, IV SITE BENIGN, VSS, WILL CONTINUE TO MONITOR.
--- NOTE | 2020-03-27 11:37 | NUR ---
Discharge Instructions See e-MAR for any mediations given with this visit. Patient education given on disease process. Patient verbalized understanding. Previous labs reviewed. Patient discharged in stable condition with after care instructions and follow up appointment ON MONDAY. NOTE DOBUTAMINE IV [id number] ADMIN BY MITCH CULVER
== END | disposition home or self-care (01) ==
LOC: CHF HDHVI 08:29
PROVIDERS: ATTEND Internal Medicine Cardiovascular Disease
DX: I11.0 Hypertensive heart disease with heart failure (principal); I50.23 Acute on chronic systolic (congestive) heart failure; J43.9 Emphysema, unspecified; R53.83 Other fatigue; R06.02 Shortness of breath; I25.10 Atherosclerotic heart disease of native coronary artery without angina pectoris; I48.91 Unspecified atrial fibrillation; I25.2 Old myocardial infarction; I27.21 Secondary pulmonary arterial hypertension; I42.8 Other cardiomyopathies; K21.9 Gastro-esophageal reflux disease without esophagitis; E78.5 Hyperlipidemia, unspecified; E03.9 Hypothyroidism, unspecified; J90 Pleural effusion, not elsewhere classified; E78.00 Pure hypercholesterolemia, unspecified; M19.90 Unspecified osteoarthritis, unspecified site; E43 Unspecified severe protein-calorie malnutrition; Z79.899 Other long term (current) drug therapy; Z95.5 Presence of coronary angioplasty implant and graft; Z85.810 Personal history of malignant neoplasm of tongue; Z87.891 Personal history of nicotine dependence; Z79.01 Long term (current) use of anticoagulants; Z95.810 Presence of automatic (implantable) cardiac defibrillator; Z90.49 Acquired absence of other specified parts of digestive tract; Z86.73 Personal history of transient ischemic attack (TIA), and cerebral infarction without residual deficits
CPT/HCPCS: 96365; 96366; G0463; J1250

== ENCOUNTER → 2020-03-30 | Outpatient (CLI) | payer MEDICARE ==
[~2020-03-30] VITALS: Ht 30.5 cm; Wt 57.4 kg
[2020-03-30] VITALS (9 sets, daily range): BP systolic 149–185; BP diastolic 64–85
[~2020-03-30] MED LIST changes: +CYANOCOBALAMIN (B-12) 1000 MCG/1 ML VIAL IM ONE; +CYANOCOBALAMIN (B-12) 1000 MCG/1 ML VIAL ONE
[2020-03-30 12:27] LABS: Basophils # (auto) 0.1 10 ^3/uL (0-0.2); Basophils % (auto) 1.2 % (0.0-2.0); Eosinophils # (auto) 0.3 10 ^3/uL (0-0.8); Eosinophils % (auto) 5.1 % (0.0-7.0); Hemoglobin 9.8 g/dL (13.5-17.5); Lymphocytes # (auto) 0.7 10 ^3/uL (0.4-5.4); Lymphocytes % (auto) 11.3 % (10.0-50.0); Mean Corpuscular Hemoglobin 28.9 pg (28.0-32.0); Mean Corpuscular Hgb Conc. 32.8 g/dL (32.0-36.0); Monocytes # (auto) 0.4 10 ^3/uL (0-1.3); Monocytes % (auto) 5.7 % (0.0-12.0); Neutrophils % (auto) 76.7 % (37.0-80.0); Nucleated Red Blood Cells % 0.1 %; Platelet Count (auto) 269 10^3/uL (140-450); Red Cell Distribution Width 16.1 % (11.8-14.3); White Blood Cell 6.5 10^3/uL (4.4-10.8)
[2020-03-30 12:44] LABS: BUN/Creatinine Ratio 19.6; Calcium 8.9 mg/dL (8.5-10.1); Magnesium 2.6 mg/dL (1.6-2.6)
== END | disposition home or self-care (01) ==
LOC: CHF HDHVI 08:24
PROVIDERS: ATTEND Internal Medicine Cardiovascular Disease
DX: I11.0 Hypertensive heart disease with heart failure (principal); I50.23 Acute on chronic systolic (congestive) heart failure; I25.10 Atherosclerotic heart disease of native coronary artery without angina pectoris; I42.8 Other cardiomyopathies; I48.91 Unspecified atrial fibrillation; I27.21 Secondary pulmonary arterial hypertension; I25.2 Old myocardial infarction; J43.9 Emphysema, unspecified; K21.9 Gastro-esophageal reflux disease without esophagitis; E43 Unspecified severe protein-calorie malnutrition; M19.90 Unspecified osteoarthritis, unspecified site; E03.9 Hypothyroidism, unspecified; E78.5 Hyperlipidemia, unspecified; J90 Pleural effusion, not elsewhere classified; E78.00 Pure hypercholesterolemia, unspecified; G89.29 Other chronic pain; Z85.810 Personal history of malignant neoplasm of tongue; Z87.891 Personal history of nicotine dependence; Z95.1 Presence of aortocoronary bypass graft; Z79.01 Long term (current) use of anticoagulants; Z79.899 Other long term (current) drug therapy; Z95.810 Presence of automatic (implantable) cardiac defibrillator; Z95.5 Presence of coronary angioplasty implant and graft; Z90.49 Acquired absence of other specified parts of digestive tract; Z86.73 Personal history of transient ischemic attack (TIA), and cerebral infarction without residual deficits
CPT/HCPCS: 36415; 80048; 83735; 83880; 85025; 96365; 96366; 96372; G0463; J1250; J3420

== ENCOUNTER → 2020-04-03 | Outpatient (CLI) | payer MEDICARE ==
[~2020-04-03] MED LIST changes: -CYANOCOBALAMIN (B-12) 1000 MCG/1 ML VIAL IM ONE; -CYANOCOBALAMIN (B-12) 1000 MCG/1 ML VIAL ONE; +FUROSEMIDE 20 MG/2 ML VIAL ONE; +FUROSEMIDE 40 MG/4 ML VIAL IV ONE
--- NOTE | 2020-04-03 08:16 | NUR ---
Patient into clinic for scheduled infusion, AAOx4, ambulatory, breathing even and unlabored.
--- NOTE | 2020-04-03 08:23 | NUR ---
IV insertion IV access obtained by Carly CULVER, via clean sterile technique by inserting 22 gauge catheter at ANDREW after 1 attempt(s). IV secured properly. No trauma to site. Patient tolerated procedure well.
--- NOTE | 2020-04-03 09:00 | NUR ---
Patient shivering O2 sat 90% placed on 2LPM N/C, and given blanket, patient O2 sats normal after O2, patient has home o2
--- NOTE | 2020-04-03 11:30 | NUR ---
Patient sent for chest Xray waiting for results.
--- NOTE | 2020-04-03 12:00 | NUR ---
Spoke with Dr Larry regarding episode in clinic during tx and cxr results, orders given for laix ivp and home abx.
--- NOTE | 2020-04-03 12:30 | NUR ---
IV removal IV DC'd with sterile technique, catheter fully intact. Pressure dressing applied to site. Patient tolerated procedure well.
[2020-04-03 12:36] VITALS: BP 137/58
--- NOTE | 2020-04-03 12:36 | NUR ---
Discharge Instructions See e-MAR for any mediations given with this visit. Patient education given on disease process. Patient verbalized understanding. Previous labs reviewed. Patient discharged in stable condition with after care instructions and follow up appointment. Note Dobutamine [id number] admin by Carly CULVER. Lasix IVP admin by Carly CULVER. Yann sent escript to pt pharmacy
== END | disposition home or self-care (01) ==
LOC: CHF HDHVI 08:20
PROVIDERS: ATTEND Internal Medicine Cardiovascular Disease
DX: I11.0 Hypertensive heart disease with heart failure (principal); I50.23 Acute on chronic systolic (congestive) heart failure; I25.10 Atherosclerotic heart disease of native coronary artery without angina pectoris; I48.91 Unspecified atrial fibrillation; I27.21 Secondary pulmonary arterial hypertension; I25.2 Old myocardial infarction; I42.8 Other cardiomyopathies; R53.83 Other fatigue; R53.1 Weakness; R06.02 Shortness of breath; J43.9 Emphysema, unspecified; K21.9 Gastro-esophageal reflux disease without esophagitis; E78.5 Hyperlipidemia, unspecified; E03.9 Hypothyroidism, unspecified; G89.29 Other chronic pain; J90 Pleural effusion, not elsewhere classified; E78.00 Pure hypercholesterolemia, unspecified; M19.90 Unspecified osteoarthritis, unspecified site; E43 Unspecified severe protein-calorie malnutrition; E11.9 Type 2 diabetes mellitus without complications; Z79.899 Other long term (current) drug therapy; Z85.810 Personal history of malignant neoplasm of tongue; Z87.891 Personal history of nicotine dependence; Z95.1 Presence of aortocoronary bypass graft; Z95.810 Presence of automatic (implantable) cardiac defibrillator; Z90.49 Acquired absence of other specified parts of digestive tract; Z95.5 Presence of coronary angioplasty implant and graft; Z79.01 Long term (current) use of anticoagulants; Z86.73 Personal history of transient ischemic attack (TIA), and cerebral infarction without residual deficits
CPT/HCPCS: 71046; 83880; 96365; 96366; 96375; G0463; J1250; J1940

== ENCOUNTER → 2020-04-06 | Outpatient (CLI) | payer MEDICARE ==
[~2020-04-06] VITALS: Ht 30.5 cm; Wt 55.8 kg
[2020-04-06] VITALS (9 sets, daily range): BP systolic 109–147; BP diastolic 55–68
[~2020-04-06] MED LIST changes: -FUROSEMIDE 20 MG/2 ML VIAL ONE; -FUROSEMIDE 40 MG/4 ML VIAL IV ONE
[2020-04-06 12:09] LABS: Basophils # (auto) 0 10 ^3/uL (0-0.2); Basophils % (auto) 0.6 % (0.0-2.0); Eosinophils # (auto) 0.2 10 ^3/uL (0-0.8); Hematocrit 29.6 % (41.0-53.0); Hemoglobin 9.7 g/dL (13.5-17.5); Lymphocytes # (auto) 0.5 10 ^3/uL (0.4-5.4); Lymphocytes % (auto) 9.5 % (10.0-50.0); Mean Corpuscular Hgb Conc. 32.7 g/dL (32.0-36.0); Mean Corpuscular Volume 88.6 fL (80.0-100.0); Monocytes # (auto) 0.3 10 ^3/uL (0-1.3); Neutrophils # (auto) 4.4 10 ^3/uL (1.6-8.6); Neutrophils % (auto) 80.9 % (37.0-80.0); Platelet Count (auto) 237 10^3/uL (140-450); Red Blood Cells 3.34 10^6/uL (4.5-5.90); Red Cell Distribution Width 15.8 % (11.8-14.3); White Blood Cell 5.4 10^3/uL (4.4-10.8)
[2020-04-06 12:22] LABS: Potassium 4.2 mmol/L (3.5-5.1)
[2020-04-06 12:26] LABS: BUN/Creatinine Ratio 19.3; Calcium 8.8 mg/dL (8.5-10.1); Magnesium 2.5 mg/dL (1.6-2.6)
== END | disposition home or self-care (01) ==
LOC: CHF HDHVI 08:40
PROVIDERS: ATTEND Internal Medicine Cardiovascular Disease
DX: I11.0 Hypertensive heart disease with heart failure (principal); I50.23 Acute on chronic systolic (congestive) heart failure; R53.83 Other fatigue; I25.10 Atherosclerotic heart disease of native coronary artery without angina pectoris; I27.21 Secondary pulmonary arterial hypertension; I48.91 Unspecified atrial fibrillation; I25.2 Old myocardial infarction; I42.8 Other cardiomyopathies; J43.9 Emphysema, unspecified; K21.9 Gastro-esophageal reflux disease without esophagitis; E78.5 Hyperlipidemia, unspecified; E03.9 Hypothyroidism, unspecified; G89.29 Other chronic pain; E78.00 Pure hypercholesterolemia, unspecified; E11.9 Type 2 diabetes mellitus without complications; M19.90 Unspecified osteoarthritis, unspecified site; E43 Unspecified severe protein-calorie malnutrition; Z79.899 Other long term (current) drug therapy; Z85.810 Personal history of malignant neoplasm of tongue; Z87.891 Personal history of nicotine dependence; J90 Pleural effusion, not elsewhere classified; Z95.1 Presence of aortocoronary bypass graft; Z95.810 Presence of automatic (implantable) cardiac defibrillator; Z95.5 Presence of coronary angioplasty implant and graft; Z79.01 Long term (current) use of anticoagulants; Z90.49 Acquired absence of other specified parts of digestive tract; Z86.73 Personal history of transient ischemic attack (TIA), and cerebral infarction without residual deficits
CPT/HCPCS: 36415; 80048; 83735; 83880; 85025; 96365; 96366; G0463; J1250; 85610

== ENCOUNTER → 2020-04-10 | Outpatient (CLI) | payer MEDICARE ==
[2020-04-10] VITALS (9 sets, daily range): BP systolic 114–145; BP diastolic 53–72
--- NOTE | 2020-04-10 08:20 | NUR ---
CLINIC PT ARRIVED TO THE CHF CLINIC FOR SCHEDULED WEEKLY CHF EVAL AND TX, A/OX4, AMBULATORY, BREATHING IS EVEN AND UNLABORED.
--- NOTE | 2020-04-10 08:43 | NUR ---
DOBUTAMINE IV STARTED @ 4.5MCG/KG/MIN PER MD ORDERS, VSS, WILL CONTINUE TO MONITOR.
--- NOTE | 2020-04-10 09:35 | NUR ---
INR 4.1 PT STATED THAT THERE IS A CHANCE THAT HE MAY HAVE TAKEN AN EXTRA DOSE. PT INSTRUCTED TO HOLD DOSE TONIGHT AND RESUME TOMORROW. REDRAW TO BE DONE IN 1 WEEK.
--- NOTE | 2020-04-10 10:18 | NUR ---
PT TOLERATING DOBUTAMINE INFUSION, IV SITE BENIGN, VSS, WILL CONTINUE TO MONITOR.
--- NOTE | 2020-04-10 11:54 | NUR ---
Discharge Instructions See e-MAR for any mediations given with this visit. Patient education given on disease process. Patient verbalized understanding. Previous labs reviewed. Patient discharged in stable condition with after care instructions and follow up appointment ON MONDAY. A PILL DISPENSER WAS GIVEN TO THE PT TO HELP MONITOR MEDICATION REGIMEN. NOTE DOBUTAMINE IV [id number] ADMIN BY MITCH CULVER
== END | disposition home or self-care (01) ==
LOC: CHF HDHVI 08:24
PROVIDERS: ATTEND Internal Medicine Cardiovascular Disease
DX: I11.0 Hypertensive heart disease with heart failure (principal); I50.23 Acute on chronic systolic (congestive) heart failure; R53.83 Other fatigue; I25.10 Atherosclerotic heart disease of native coronary artery without angina pectoris; I48.91 Unspecified atrial fibrillation; I27.21 Secondary pulmonary arterial hypertension; I25.2 Old myocardial infarction; I42.8 Other cardiomyopathies; J43.9 Emphysema, unspecified; R06.02 Shortness of breath; K21.9 Gastro-esophageal reflux disease without esophagitis; E78.5 Hyperlipidemia, unspecified; E03.9 Hypothyroidism, unspecified; G89.29 Other chronic pain; J90 Pleural effusion, not elsewhere classified; E78.00 Pure hypercholesterolemia, unspecified; E11.9 Type 2 diabetes mellitus without complications; M19.90 Unspecified osteoarthritis, unspecified site; E43 Unspecified severe protein-calorie malnutrition; Z79.899 Other long term (current) drug therapy; Z85.810 Personal history of malignant neoplasm of tongue; Z79.01 Long term (current) use of anticoagulants; Z87.891 Personal history of nicotine dependence; Z95.810 Presence of automatic (implantable) cardiac defibrillator; Z90.49 Acquired absence of other specified parts of digestive tract; Z95.5 Presence of coronary angioplasty implant and graft; Z86.73 Personal history of transient ischemic attack (TIA), and cerebral infarction without residual deficits
CPT/HCPCS: 85610; 96365; 96366; G0463; J1250

== ENCOUNTER → 2020-04-13 | Outpatient (CLI) | payer MEDICARE ==
[~2020-04-13] VITALS: Ht 30.5 cm; Wt 56.4 kg
[2020-04-13] VITALS (9 sets, daily range): BP systolic 113–156; BP diastolic 49–81
--- NOTE | 2020-04-13 08:15 | NUR ---
CLINIC PT ARRIVED TO THE CHF CLINIC FOR SCHEDULED WEEKLY CHF EVAL AND TX, A/OX4, AMBULATORY, BREATHING IS EVEN AND UNLABORED.
--- NOTE | 2020-04-13 08:20 | NUR ---
IV insertion IV access obtained, via clean sterile technique by inserting 22 gauge catheter at after 1 attempt(s). IV secured properly. No trauma to site. Patient tolerated procedure well. LABS DRAWN AND SENT. NOTE INSERTED BY SLOANE CULVER
--- NOTE | 2020-04-13 08:22 | NUR ---
DOBUTAMINE IV STARTED @ 4.5 MCG/KG/MIN PER MD ORDERS, VSS, WILL CONTINUE TO MONITOR.
--- NOTE | 2020-04-13 10:12 | NUR ---
PT TOLERATED DOBUTAMINE INFUSION, IV SITE BENIGN, VSS, WILL CONTINUE TO MONITOR.
--- NOTE | 2020-04-13 11:33 | NUR ---
Discharge Instructions See e-MAR for any mediations given with this visit. Patient education given on disease process. Patient verbalized understanding. Previous labs reviewed. Patient discharged in stable condition with after care instructions and follow up appointment ON MONDAY. NOTE DOBUTAMINE IV [id number] ADMIN BY MITCH CULVER
--- NOTE | 2020-04-13 11:33 | NUR ---
Discharge Instructions See e-MAR for any mediations given with this visit. Patient education given on disease process. Patient verbalized understanding. Previous labs reviewed. Patient discharged in stable condition with after care instructions and follow up appointment ON MONDAY. SAMPLE OF TRADJENTA 5MG QD GIVEN TO PT WITH INSTRUCTIONS FOR USE. PT VERBALIZED UNDERSTANDING. NOTE TESTOSTERONE IM ADMIN BY BLAISE LUNA Beth ZOILASavannah LOT#[id number] EXP 06/09 Addendum: 04/13/20 at 1142 by MITCH MCCRACKEN RN RN AK WRONG PT
[2020-04-13 12:04] LABS: Basophils # (auto) 0 10 ^3/uL (0-0.2); Basophils % (auto) 0.6 % (0.0-2.0); Eosinophils # (auto) 0.3 10 ^3/uL (0-0.8); Eosinophils % (auto) 4.9 % (0.0-7.0); Hematocrit 31.1 % (41.0-53.0); Lymphocytes # (auto) 0.6 10 ^3/uL (0.4-5.4); Lymphocytes % (auto) 10.8 % (10.0-50.0); Mean Corpuscular Hemoglobin 28.6 pg (28.0-32.0); Mean Corpuscular Hgb Conc. 32.1 g/dL (32.0-36.0); Monocytes # (auto) 0.4 10 ^3/uL (0-1.3); Monocytes % (auto) 7.5 % (0.0-12.0); Neutrophils # (auto) 4.3 10 ^3/uL (1.6-8.6); Neutrophils % (auto) 76.2 % (37.0-80.0); Platelet Count (auto) 228 10^3/uL (140-450); Red Blood Cells 3.49 10^6/uL (4.5-5.90); Red Cell Distribution Width 15.9 % (11.8-14.3); White Blood Cell 5.6 10^3/uL (4.4-10.8)
[2020-04-13 12:16] LABS: BUN/Creatinine Ratio 17.6; Magnesium 2.7 mg/dL (1.6-2.6); Potassium 4.1 mmol/L (3.5-5.1)
== END | disposition home or self-care (01) ==
LOC: CHF HDHVI 08:30
PROVIDERS: ATTEND Internal Medicine Cardiovascular Disease
DX: I11.0 Hypertensive heart disease with heart failure (principal); I50.23 Acute on chronic systolic (congestive) heart failure; R53.83 Other fatigue; I25.10 Atherosclerotic heart disease of native coronary artery without angina pectoris; I42.8 Other cardiomyopathies; I48.91 Unspecified atrial fibrillation; I27.21 Secondary pulmonary arterial hypertension; I25.2 Old myocardial infarction; J43.9 Emphysema, unspecified; K21.9 Gastro-esophageal reflux disease without esophagitis; E78.5 Hyperlipidemia, unspecified; E03.9 Hypothyroidism, unspecified; G89.29 Other chronic pain; J90 Pleural effusion, not elsewhere classified; E78.00 Pure hypercholesterolemia, unspecified; E11.9 Type 2 diabetes mellitus without complications; M19.90 Unspecified osteoarthritis, unspecified site; Z95.1 Presence of aortocoronary bypass graft; Z79.899 Other long term (current) drug therapy; Z79.01 Long term (current) use of anticoagulants; Z87.891 Personal history of nicotine dependence; Z90.49 Acquired absence of other specified parts of digestive tract; Z95.810 Presence of automatic (implantable) cardiac defibrillator; Z95.5 Presence of coronary angioplasty implant and graft
CPT/HCPCS: 36415; 80048; 83735; 83880; 85025; 96365; 96366; G0463; J1250

== ENCOUNTER → 2020-04-17 | Outpatient (CLI) | payer MEDICARE ==
[2020-04-17] VITALS (9 sets, daily range): BP systolic 113–169; BP diastolic 47–89
== END | disposition home or self-care (01) ==
LOC: CHF HDHVI 08:33
PROVIDERS: ATTEND Internal Medicine Cardiovascular Disease
DX: I11.0 Hypertensive heart disease with heart failure (principal); I50.23 Acute on chronic systolic (congestive) heart failure; R53.83 Other fatigue; I25.10 Atherosclerotic heart disease of native coronary artery without angina pectoris; I48.91 Unspecified atrial fibrillation; I27.21 Secondary pulmonary arterial hypertension; I25.2 Old myocardial infarction; I42.8 Other cardiomyopathies; J43.9 Emphysema, unspecified; R06.02 Shortness of breath; K21.9 Gastro-esophageal reflux disease without esophagitis; E78.5 Hyperlipidemia, unspecified; E03.9 Hypothyroidism, unspecified; G89.29 Other chronic pain; J90 Pleural effusion, not elsewhere classified; E78.00 Pure hypercholesterolemia, unspecified; E11.9 Type 2 diabetes mellitus without complications; M19.90 Unspecified osteoarthritis, unspecified site; Z79.899 Other long term (current) drug therapy; Z79.01 Long term (current) use of anticoagulants; Z90.49 Acquired absence of other specified parts of digestive tract; Z95.1 Presence of aortocoronary bypass graft; Z95.810 Presence of automatic (implantable) cardiac defibrillator; Z95.5 Presence of coronary angioplasty implant and graft; Z87.891 Personal history of nicotine dependence; Z85.810 Personal history of malignant neoplasm of tongue; Z86.73 Personal history of transient ischemic attack (TIA), and cerebral infarction without residual deficits
CPT/HCPCS: 85610; 96365; 96366; G0463; J1250

== ENCOUNTER → 2020-04-20 | Outpatient (CLI) | payer MEDICARE ==
[2020-04-20] VITALS (9 sets, daily range): BP systolic 105–154; BP diastolic 50–67
--- NOTE | 2020-04-20 08:13 | NUR ---
CLINIC PT ARRIVED TO THE CHF CLINIC FOR SCHEDULED WEEKLY CHF EVAL AND TX, A/OX4, AMBULATORY, BREATHING IS EVEN AND UNLABORED.
--- NOTE | 2020-04-20 08:25 | NUR ---
DOBUTAMINE IV STARTED @ 5MCG/KG/MIN PER MD ORDERS, VSS, WILL CONTINUE TO MONITOR.
--- NOTE | 2020-04-20 09:51 | NUR ---
PT TOLERATING DOBUTAMINE INFUSION, IV SITE BENIGN, VSS, WILL CONTINUE TO MONITOR
--- NOTE | 2020-04-20 11:44 | NUR ---
Discharge Instructions See e-MAR for any mediations given with this visit. Patient education given on disease process. Patient verbalized understanding. Previous labs reviewed. Patient discharged in stable condition with after care instructions and follow up appointment ON MONDAY. NOTE DOBUTAMINE IV [id number] ADMIN BY MITCH CULVER
[2020-04-20 12:10] LABS: Basophils # (auto) 0 10 ^3/uL (0-0.2); Eosinophils # (auto) 0.2 10 ^3/uL (0-0.8); Eosinophils % (auto) 5.3 % (0.0-7.0); Hematocrit 29.8 % (41.0-53.0); Lymphocytes # (auto) 0.6 10 ^3/uL (0.4-5.4); Mean Corpuscular Hemoglobin 29.5 pg (28.0-32.0); Mean Corpuscular Hgb Conc. 33.4 g/dL (32.0-36.0); Mean Corpuscular Volume 88.1 fL (80.0-100.0); Monocytes # (auto) 0.4 10 ^3/uL (0-1.3); Monocytes % (auto) 8.7 % (0.0-12.0); Neutrophils # (auto) 3.4 10 ^3/uL (1.6-8.6); Platelet Count (auto) 181 10^3/uL (140-450); Red Blood Cells 3.38 10^6/uL (4.5-5.90); Red Cell Distribution Width 15.6 % (11.8-14.3); White Blood Cell 4.7 10^3/uL (4.4-10.8)
[2020-04-20 12:32] LABS: Potassium 4.2 mmol/L (3.5-5.1)
[2020-04-20 13:04] LABS: BUN/Creatinine Ratio 21.1; Calcium 8.9 mg/dL (8.5-10.1); Magnesium 2.6 mg/dL (1.6-2.6)
== END | disposition home or self-care (01) ==
LOC: CHF HDHVI 08:33
PROVIDERS: ATTEND Internal Medicine Cardiovascular Disease
DX: I11.0 Hypertensive heart disease with heart failure (principal); I50.23 Acute on chronic systolic (congestive) heart failure; I25.10 Atherosclerotic heart disease of native coronary artery without angina pectoris; I48.91 Unspecified atrial fibrillation; I25.2 Old myocardial infarction; I27.21 Secondary pulmonary arterial hypertension; I42.8 Other cardiomyopathies; J43.9 Emphysema, unspecified; R53.83 Other fatigue; K21.9 Gastro-esophageal reflux disease without esophagitis; E78.5 Hyperlipidemia, unspecified; E03.9 Hypothyroidism, unspecified; J90 Pleural effusion, not elsewhere classified; G89.29 Other chronic pain; E11.9 Type 2 diabetes mellitus without complications; M19.90 Unspecified osteoarthritis, unspecified site; E43 Unspecified severe protein-calorie malnutrition; Z79.899 Other long term (current) drug therapy; Z85.46 Personal history of malignant neoplasm of prostate; Z85.810 Personal history of malignant neoplasm of tongue; Z87.891 Personal history of nicotine dependence; Z95.1 Presence of aortocoronary bypass graft; Z79.01 Long term (current) use of anticoagulants; Z90.49 Acquired absence of other specified parts of digestive tract; Z86.73 Personal history of transient ischemic attack (TIA), and cerebral infarction without residual deficits
CPT/HCPCS: 36415; 80048; 83735; 83880; 85025; 96365; 96366; G0463; J1250

== ENCOUNTER → 2020-04-24 | Outpatient (CLI) | payer MEDICARE ==
[2020-04-24] VITALS (9 sets, daily range): BP systolic 145–174; BP diastolic 63–79
== END | disposition home or self-care (01) ==
LOC: CHF HDHVI 08:35
PROVIDERS: ATTEND Internal Medicine Cardiovascular Disease
DX: I11.0 Hypertensive heart disease with heart failure (principal); I50.23 Acute on chronic systolic (congestive) heart failure; R53.83 Other fatigue; I25.10 Atherosclerotic heart disease of native coronary artery without angina pectoris; I48.91 Unspecified atrial fibrillation; I25.2 Old myocardial infarction; I42.8 Other cardiomyopathies; I27.21 Secondary pulmonary arterial hypertension; J43.9 Emphysema, unspecified; R06.02 Shortness of breath; K21.9 Gastro-esophageal reflux disease without esophagitis; G89.29 Other chronic pain; E78.5 Hyperlipidemia, unspecified; J90 Pleural effusion, not elsewhere classified; E03.9 Hypothyroidism, unspecified; E11.9 Type 2 diabetes mellitus without complications; M19.90 Unspecified osteoarthritis, unspecified site; E43 Unspecified severe protein-calorie malnutrition; Z95.810 Presence of automatic (implantable) cardiac defibrillator; E78.00 Pure hypercholesterolemia, unspecified; Z79.899 Other long term (current) drug therapy; Z85.46 Personal history of malignant neoplasm of prostate; Z85.810 Personal history of malignant neoplasm of tongue; Z87.891 Personal history of nicotine dependence; Z79.01 Long term (current) use of anticoagulants; Z95.1 Presence of aortocoronary bypass graft; Z90.49 Acquired absence of other specified parts of digestive tract; Z86.73 Personal history of transient ischemic attack (TIA), and cerebral infarction without residual deficits
CPT/HCPCS: 85610; 96365; 96366; G0463; J1250

== ENCOUNTER → 2020-04-27 | Outpatient (CLI) | payer MEDICARE ==
[2020-04-27] VITALS (9 sets, daily range): BP systolic 95–148; BP diastolic 46–64
[~2020-04-27] VITALS: Ht 30.5 cm; Wt 54.6 kg
[~2020-04-27] MED LIST changes: +CYANOCOBALAMIN (B-12) 1000 MCG/1 ML VIAL IM ONE; +CYANOCOBALAMIN (B-12) 1000 MCG/1 ML VIAL ONE
[2020-04-27 12:36] LABS: Potassium 3.3 mmol/L (3.5-5.1)
[2020-04-27 12:47] LABS: Albumin 3.2 g/dL (3.4-5.0); BUN/Creatinine Ratio 21.5; Bilirubin, Total 0.8 mg/dL (0.2-1.0); Calcium 8.8 mg/dL (8.5-10.1); Magnesium 2.4 mg/dL (1.6-2.6); Total Protein 7.6 g/dL (6.4-8.2)
== END | disposition home or self-care (01) ==
LOC: CHF HDHVI 09:11
PROVIDERS: ATTEND Internal Medicine Cardiovascular Disease
DX: I11.0 Hypertensive heart disease with heart failure (principal); I50.23 Acute on chronic systolic (congestive) heart failure; I25.10 Atherosclerotic heart disease of native coronary artery without angina pectoris; I27.21 Secondary pulmonary arterial hypertension; I25.2 Old myocardial infarction; R53.83 Other fatigue; R06.02 Shortness of breath; I48.91 Unspecified atrial fibrillation; J43.9 Emphysema, unspecified; K21.9 Gastro-esophageal reflux disease without esophagitis; E78.5 Hyperlipidemia, unspecified; G89.29 Other chronic pain; E78.00 Pure hypercholesterolemia, unspecified; E11.9 Type 2 diabetes mellitus without complications; M19.90 Unspecified osteoarthritis, unspecified site; E43 Unspecified severe protein-calorie malnutrition; J90 Pleural effusion, not elsewhere classified; Z95.5 Presence of coronary angioplasty implant and graft; Z79.899 Other long term (current) drug therapy; Z85.46 Personal history of malignant neoplasm of prostate; Z85.810 Personal history of malignant neoplasm of tongue; Z87.891 Personal history of nicotine dependence; Z79.01 Long term (current) use of anticoagulants; Z90.49 Acquired absence of other specified parts of digestive tract; Z95.810 Presence of automatic (implantable) cardiac defibrillator; Z86.73 Personal history of transient ischemic attack (TIA), and cerebral infarction without residual deficits
CPT/HCPCS: 36415; 80053; 83735; 83880; 96365; 96366; 96372; G0463; J1250; J3420

== ENCOUNTER → 2020-05-01 | Outpatient (CLI) | payer MEDICARE ==
[2020-05-01] VITALS (9 sets, daily range): BP systolic 101–147; BP diastolic 51–75
[~2020-05-01] MED LIST changes: -CYANOCOBALAMIN (B-12) 1000 MCG/1 ML VIAL IM ONE; -CYANOCOBALAMIN (B-12) 1000 MCG/1 ML VIAL ONE
== END | disposition home or self-care (01) ==
LOC: CHF HDHVI 08:23
PROVIDERS: ATTEND Internal Medicine Cardiovascular Disease
DX: I11.0 Hypertensive heart disease with heart failure (principal); I50.23 Acute on chronic systolic (congestive) heart failure; I25.10 Atherosclerotic heart disease of native coronary artery without angina pectoris; I48.91 Unspecified atrial fibrillation; I25.2 Old myocardial infarction; I42.8 Other cardiomyopathies; I27.21 Secondary pulmonary arterial hypertension; J43.9 Emphysema, unspecified; K21.9 Gastro-esophageal reflux disease without esophagitis; E78.5 Hyperlipidemia, unspecified; G89.29 Other chronic pain; E78.00 Pure hypercholesterolemia, unspecified; E11.9 Type 2 diabetes mellitus without complications; M19.90 Unspecified osteoarthritis, unspecified site; E43 Unspecified severe protein-calorie malnutrition; E03.9 Hypothyroidism, unspecified; J90 Pleural effusion, not elsewhere classified; Z95.1 Presence of aortocoronary bypass graft; Z79.899 Other long term (current) drug therapy; Z85.810 Personal history of malignant neoplasm of tongue; Z85.46 Personal history of malignant neoplasm of prostate; Z87.891 Personal history of nicotine dependence; Z95.810 Presence of automatic (implantable) cardiac defibrillator; Z95.5 Presence of coronary angioplasty implant and graft; Z90.49 Acquired absence of other specified parts of digestive tract; Z79.01 Long term (current) use of anticoagulants; Z86.73 Personal history of transient ischemic attack (TIA), and cerebral infarction without residual deficits
CPT/HCPCS: 85610; 96365; 96366; G0463; J1250

== ENCOUNTER → 2020-05-04 | Outpatient (CLI) | payer MEDICARE ==
[~2020-05-04] VITALS: Ht 30.5 cm; Wt 0.5 kg
[2020-05-04] VITALS (9 sets, daily range): BP systolic 106–149; BP diastolic 51–75
[~2020-05-04] MED LIST changes: +BACITRACIN TOP OINT 1 UD PKG TOP ONE
--- NOTE | 2020-05-04 08:30 | NUR ---
PT. TO CHF CLINIC FOR DOBUTREX INFUSION PER MD ORDER. PT. FELL THIS AM WITH SKIN TEAR TO LEFT ARM. MECHANICAL FALL. PT. DID NOT TAKE HIS DIURETIC FOR PAST 2 DAYS.ORDERS RECEIVED AND CARRIED OUT.
--- NOTE | 2020-05-04 08:45 | NUR ---
IV insertion IV access obtained, via clean sterile technique by inserting 22 gauge catheter at after attempt(s). IV secured properly. No trauma to site. Patient tolerated procedure well. LABS SENT.
--- NOTE | 2020-05-04 08:47 | NUR ---
Clinic Provider Clinic Provider into see pt with new orders received and carried out. Dobutamine gtt started at {5}mcg/kg/hr per MD order
--- NOTE | 2020-05-04 10:00 | NUR ---
COMFORT: PT. RESTING WITH NO C/O VSS PER PROTOCOL.
--- NOTE | 2020-05-04 11:45 | NUR ---
INR DONE WITH RESULTS OF 1.8. PT TAKING 6MG COUMADIN Q HS. NEW MED REC TO INCREASE TO 7MG ON ODD DAYS AND 6MG ON EVEN DAYS, WITH FULL UNDERSTANDING BY PT. WHO STATES HE HAS DOSING COVERAGE FOR THIS INSTRUCTIONS.
--- NOTE | 2020-05-04 11:53 | NUR ---
IV removal IV DC'd with sterile technique, catheter fully intact. Pressure dressing applied to site. Patient tolerated procedure well. Discharged with aftercare instructions per MD. NOTE: PT. TOLERATED MEDS WELL.
--- NOTE | 2020-05-04 11:54 | NUR ---
WOUND CARE: SKIN TEAR TO LEFT ELBOW CLEANSED WITH NSS, DRIED WITH BACITRACIN OINT. APPLIED PER MD ORDER, FOLLOWED BY ASAEL BROWN. PT. TOLERATED PROCEDURE WELL
--- NOTE | 2020-05-04 12:00 | NUR ---
Discharge Instructions See e-MAR for any mediations given with this visit. Patient education given on disease process. Patient verbalized understanding. Previous labs reviewed. Patient discharged in stable condition with after care instructions and follow up appointment.
[2020-05-04 12:38] LABS: Basophils # (auto) 0.1 10 ^3/uL (0-0.2); Basophils % (auto) 1.3 % (0.0-2.0); Eosinophils # (auto) 0.3 10 ^3/uL (0-0.8); Hematocrit 30.8 % (41.0-53.0); Hemoglobin 10.3 g/dL (13.5-17.5); Lymphocytes # (auto) 0.7 10 ^3/uL (0.4-5.4); Lymphocytes % (auto) 17.1 % (10.0-50.0); Mean Corpuscular Hemoglobin 29.4 pg (28.0-32.0); Mean Corpuscular Hgb Conc. 33.5 g/dL (32.0-36.0); Mean Corpuscular Volume 87.9 fL (80.0-100.0); Monocytes # (auto) 0.3 10 ^3/uL (0-1.3); Neutrophils # (auto) 2.6 10 ^3/uL (1.6-8.6); Neutrophils % (auto) 67.6 % (37.0-80.0); Nucleated Red Blood Cells % 0.2 %; Platelet Count (auto) 200 10^3/uL (140-450); Red Cell Distribution Width 15.9 % (11.8-14.3); White Blood Cell 3.9 10^3/uL (4.4-10.8)
[2020-05-04 12:49] LABS: Potassium 4.1 mmol/L (3.5-5.1)
[2020-05-04 13:05] LABS: BUN/Creatinine Ratio 22.2; Calcium 9.1 mg/dL (8.5-10.1); Magnesium 2.4 mg/dL (1.6-2.6)
== END | disposition home or self-care (01) ==
LOC: CHF HDHVI 08:52
PROVIDERS: ATTEND Internal Medicine Cardiovascular Disease
DX: I11.0 Hypertensive heart disease with heart failure (principal); I50.23 Acute on chronic systolic (congestive) heart failure; I25.10 Atherosclerotic heart disease of native coronary artery without angina pectoris; J43.9 Emphysema, unspecified; K21.9 Gastro-esophageal reflux disease without esophagitis; E78.5 Hyperlipidemia, unspecified; E03.9 Hypothyroidism, unspecified; I25.2 Old myocardial infarction; E78.00 Pure hypercholesterolemia, unspecified; E11.9 Type 2 diabetes mellitus without complications; I48.91 Unspecified atrial fibrillation; M19.90 Unspecified osteoarthritis, unspecified site; Z90.49 Acquired absence of other specified parts of digestive tract; Z79.01 Long term (current) use of anticoagulants; Z79.899 Other long term (current) drug therapy; Z87.891 Personal history of nicotine dependence; Z85.46 Personal history of malignant neoplasm of prostate; Z85.810 Personal history of malignant neoplasm of tongue; Z95.810 Presence of automatic (implantable) cardiac defibrillator; Z95.5 Presence of coronary angioplasty implant and graft; Z86.73 Personal history of transient ischemic attack (TIA), and cerebral infarction without residual deficits
CPT/HCPCS: 36415; 80048; 83735; 83880; 85025; 85610; 96365; 96366; G0463; J1250

== ENCOUNTER → 2020-05-08 | Outpatient (CLI) | payer MEDICARE ==
[~2020-05-08] VITALS: Ht 30.5 cm; Wt 55.6 kg
[2020-05-08] VITALS (7 sets, daily range): BP systolic 113–166; BP diastolic 50–81
== END | disposition home or self-care (01) ==
LOC: CHF HDHVI 08:19
PROVIDERS: ATTEND Internal Medicine Cardiovascular Disease
DX: I11.0 Hypertensive heart disease with heart failure (principal); I50.23 Acute on chronic systolic (congestive) heart failure; R53.83 Other fatigue; I25.10 Atherosclerotic heart disease of native coronary artery without angina pectoris; I25.2 Old myocardial infarction; I48.91 Unspecified atrial fibrillation; I42.8 Other cardiomyopathies; J43.9 Emphysema, unspecified; R06.02 Shortness of breath; K21.9 Gastro-esophageal reflux disease without esophagitis; E78.5 Hyperlipidemia, unspecified; E03.9 Hypothyroidism, unspecified; E78.00 Pure hypercholesterolemia, unspecified; E11.9 Type 2 diabetes mellitus without complications; J90 Pleural effusion, not elsewhere classified; G89.29 Other chronic pain; E43 Unspecified severe protein-calorie malnutrition; Z79.899 Other long term (current) drug therapy; Z85.810 Personal history of malignant neoplasm of tongue; Z85.46 Personal history of malignant neoplasm of prostate; Z87.891 Personal history of nicotine dependence; Z90.49 Acquired absence of other specified parts of digestive tract; Z79.01 Long term (current) use of anticoagulants; Z95.1 Presence of aortocoronary bypass graft; Z95.810 Presence of automatic (implantable) cardiac defibrillator; Z95.5 Presence of coronary angioplasty implant and graft; Z86.73 Personal history of transient ischemic attack (TIA), and cerebral infarction without residual deficits
CPT/HCPCS: 96365; 96366; G0463; J1250

== ENCOUNTER → 2020-05-11 | Outpatient (CLI) | payer MEDICARE ==
[2020-05-11] VITALS (7 sets, daily range): BP systolic 123–160; BP diastolic 59–77
[~2020-05-11] MED LIST changes: -BACITRACIN TOP OINT 1 UD PKG TOP ONE
--- NOTE | 2020-05-11 08:16 | NUR ---
CLINIC PT ARRIVED TO THE CHF CLINIC FOR WEEKLY SCHEDULED CHF EVAL AND TX, A/OX4, AMBULATORY, BREATHING IS EVEN AND UNLABORED
--- NOTE | 2020-05-11 08:41 | NUR ---
DOBUTAMINE IV STARTED @ 5MCG/KG/MIN PER MD ORDERS, VSS, WILL CONTINUE TO MONITOR.
--- NOTE | 2020-05-11 10:15 | NUR ---
PT TOLERATING DOBUTAMINE INFUSION, IV SITE BENIGN, VSS, WILL CONTINUE TO MONITOR.
--- NOTE | 2020-05-11 12:00 | NUR ---
Discharge Instructions See e-MAR for any mediations given with this visit. Patient education given on disease process. Patient verbalized understanding. Previous labs reviewed. Patient discharged in stable condition with after care instructions and follow up appointment IN 1 WEEK. NOTE DOBUTAMINE IV [id number] ADMIN BY MITCH CULVER
[2020-05-11 12:15] LABS: Basophils # (auto) 0.1 10 ^3/uL (0-0.2); Eosinophils # (auto) 0.3 10 ^3/uL (0-0.8); Hemoglobin 10.1 g/dL (13.5-17.5); Lymphocytes # (auto) 0.7 10 ^3/uL (0.4-5.4); Lymphocytes % (auto) 12.5 % (10.0-50.0); Mean Corpuscular Hemoglobin 28.9 pg (28.0-32.0); Mean Corpuscular Hgb Conc. 32.7 g/dL (32.0-36.0); Mean Corpuscular Volume 88.3 fL (80.0-100.0); Monocytes # (auto) 0.4 10 ^3/uL (0-1.3); Monocytes % (auto) 7.6 % (0.0-12.0); Neutrophils # (auto) 4.3 10 ^3/uL (1.6-8.6); Neutrophils % (auto) 73.9 % (37.0-80.0); Platelet Count (auto) 205 10^3/uL (140-450); Red Blood Cells 3.51 10^6/uL (4.5-5.90); Red Cell Distribution Width 16.2 % (11.8-14.3); White Blood Cell 5.8 10^3/uL (4.4-10.8)
[2020-05-11 14:00] LABS: Anion Gap 5 (5-15); BUN/Creatinine Ratio 24.2; Blood Urea Nitrogen 22 mg/dL (7-18); Calcium 8.7 mg/dL (8.5-10.1); Carbon Dioxide 32 mmol/L (21-32); Chloride 101 mmol/L (98-107); GFR African American 103 mL/min; GFR Non-African American 85 mL/min; Glucose 97 mg/dL (74-106); Magnesium 2.7 mg/dL (1.6-2.6); Potassium 4.1 mmol/L (3.5-5.1); Sodium 138 mmol/L (136-145)
== END | disposition home or self-care (01) ==
LOC: CHF HDHVI 08:27
PROVIDERS: ATTEND Internal Medicine Cardiovascular Disease
DX: I11.0 Hypertensive heart disease with heart failure (principal); I50.23 Acute on chronic systolic (congestive) heart failure; R53.83 Other fatigue; I25.10 Atherosclerotic heart disease of native coronary artery without angina pectoris; I48.91 Unspecified atrial fibrillation; I27.21 Secondary pulmonary arterial hypertension; I25.2 Old myocardial infarction; I42.8 Other cardiomyopathies; J43.9 Emphysema, unspecified; R06.02 Shortness of breath; K21.9 Gastro-esophageal reflux disease without esophagitis; E78.5 Hyperlipidemia, unspecified; E03.9 Hypothyroidism, unspecified; G89.29 Other chronic pain; E78.00 Pure hypercholesterolemia, unspecified; E11.9 Type 2 diabetes mellitus without complications; E43 Unspecified severe protein-calorie malnutrition; M19.90 Unspecified osteoarthritis, unspecified site; J90 Pleural effusion, not elsewhere classified; Z79.899 Other long term (current) drug therapy; Z85.810 Personal history of malignant neoplasm of tongue; Z85.46 Personal history of malignant neoplasm of prostate; Z87.891 Personal history of nicotine dependence; Z95.1 Presence of aortocoronary bypass graft; Z95.810 Presence of automatic (implantable) cardiac defibrillator; Z79.01 Long term (current) use of anticoagulants; Z95.5 Presence of coronary angioplasty implant and graft; Z90.49 Acquired absence of other specified parts of digestive tract; Z86.73 Personal history of transient ischemic attack (TIA), and cerebral infarction without residual deficits
CPT/HCPCS: 36415; 80048; 83735; 83880; 85025; 96365; 96366; G0463; J1250

== ENCOUNTER → 2020-05-18 | Outpatient (CLI) | payer MEDICARE ==
[2020-05-18] VITALS (9 sets, daily range): BP systolic 103–162; BP diastolic 49–77
[~2020-05-18] VITALS: Ht 30.5 cm; Wt 56.9 kg
[~2020-05-18] MED LIST changes: +BACITRACIN TOP OINT 1 UD PKG TOP ONE
--- NOTE | 2020-05-18 08:13 | NUR ---
CLINIC PT ARRIVED TO THE CHF CLINIC FOR WEEKLY SCHEDULED CHF EVAL AND TX. A/OX4, AMBULATORY, BREATHING IS EVEN AND UNLABORED. PT HAS A 1.8LB WT INCREASE SINCE LAST VISIT ON 05/11/20.
--- NOTE | 2020-05-18 08:27 | NUR ---
DOBUTAMINE IV STARTED @ 5MCG/KG/MIN PER MD ORDERS, VSS, WILL CONTINUE TO MONITOR.
--- NOTE | 2020-05-18 10:58 | NUR ---
PT TOLERATING DOBUTAMINE INFUSION, IV SITE BENIGN, VSS, WILL CONTINUE TO MONITOR.
--- NOTE | 2020-05-18 11:46 | NUR ---
WOUND CARE SKIN TEAR TO THE L LEG WOUND CLEANED WITH NS BACITRACIN APPLIED THEN COVERED WITH NON STICK PAD AND TEGADERM.
--- NOTE | 2020-05-18 12:00 | NUR ---
Discharge Instructions See e-MAR for any mediations given with this visit. Patient education given on disease process. Patient verbalized understanding. Previous labs reviewed. Patient discharged in stable condition with after care instructions and follow up appointment ON MONDAY. [place]AMINE IV [id number] ADMIN BY MITCH CULVERSEAT JOINER DONE BY MITCH CULVER
[2020-05-18 12:21] LABS: Calcium 8.6 mg/dL (8.5-10.1); Magnesium 2.5 mg/dL (1.6-2.6); Potassium 4.3 mmol/L (3.5-5.1)
[2020-05-18 12:22] LABS: Basophils # (auto) 0.1 10 ^3/uL (0-0.2); Basophils % (auto) 1.2 % (0.0-2.0); Eosinophils # (auto) 0.3 10 ^3/uL (0-0.8); Eosinophils % (auto) 5.9 % (0.0-7.0); Hematocrit 32.4 % (41.0-53.0); Hemoglobin 10.7 g/dL (13.5-17.5); Lymphocytes # (auto) 0.7 10 ^3/uL (0.4-5.4); Lymphocytes % (auto) 16.4 % (10.0-50.0); Mean Corpuscular Hemoglobin 29.3 pg (28.0-32.0); Mean Corpuscular Hgb Conc. 33.2 g/dL (32.0-36.0); Mean Corpuscular Volume 88.2 fL (80.0-100.0); Monocytes # (auto) 0.3 10 ^3/uL (0-1.3); Monocytes % (auto) 6.1 % (0.0-12.0); Neutrophils # (auto) 3.1 10 ^3/uL (1.6-8.6); Neutrophils % (auto) 70.4 % (37.0-80.0); Nucleated Red Blood Cells % 0.2 %; Platelet Count (auto) 282 10^3/uL (140-450); Red Blood Cells 3.67 10^6/uL (4.5-5.90); Red Cell Distribution Width 15.9 % (11.8-14.3); White Blood Cell 4.4 10^3/uL (4.4-10.8)
[2020-05-18 12:27] LABS: BUN/Creatinine Ratio 18.1
== END | disposition home or self-care (01) ==
LOC: CHF HDHVI 08:22
PROVIDERS: ATTEND Internal Medicine Cardiovascular Disease
DX: I11.0 Hypertensive heart disease with heart failure (principal); I50.23 Acute on chronic systolic (congestive) heart failure; R53.83 Other fatigue; I48.91 Unspecified atrial fibrillation; I25.10 Atherosclerotic heart disease of native coronary artery without angina pectoris; I25.2 Old myocardial infarction; I42.8 Other cardiomyopathies; J43.9 Emphysema, unspecified; K21.9 Gastro-esophageal reflux disease without esophagitis; E78.5 Hyperlipidemia, unspecified; E03.9 Hypothyroidism, unspecified; G89.29 Other chronic pain; J90 Pleural effusion, not elsewhere classified; E78.00 Pure hypercholesterolemia, unspecified; E11.9 Type 2 diabetes mellitus without complications; M19.90 Unspecified osteoarthritis, unspecified site; E43 Unspecified severe protein-calorie malnutrition; Z79.899 Other long term (current) drug therapy; Z85.810 Personal history of malignant neoplasm of tongue; Z85.46 Personal history of malignant neoplasm of prostate; Z79.01 Long term (current) use of anticoagulants; Z90.49 Acquired absence of other specified parts of digestive tract; Z95.1 Presence of aortocoronary bypass graft; Z95.810 Presence of automatic (implantable) cardiac defibrillator; Z86.73 Personal history of transient ischemic attack (TIA), and cerebral infarction without residual deficits; Z87.891 Personal history of nicotine dependence
CPT/HCPCS: 36415; 80048; 83735; 83880; 85025; 85610; 96365; 96366; G0463; J1250

== ENCOUNTER → 2020-05-22 | Outpatient (CLI) | payer MEDICARE ==
[2020-05-22] VITALS (9 sets, daily range): BP systolic 119–156; BP diastolic 51–70
[~2020-05-22] MED LIST changes: -BACITRACIN TOP OINT 1 UD PKG TOP ONE; +CYANOCOBALAMIN (B-12) 1000 MCG/1 ML VIAL IM ONE; +CYANOCOBALAMIN (B-12) 1000 MCG/1 ML VIAL ONE
--- NOTE | 2020-05-22 08:07 | NUR ---
CLINIC PT ARRIVED TO THE CHF CLINIC FOR SCHEDULED WEEKLY CHF EVAL AND TX, A/OX4, AMBULATORY, BREATHING IS EVEN AND UNLABORED.
--- NOTE | 2020-05-22 08:20 | NUR ---
DOBUTAMINE IV STARTED @ 5MCG/KG/MIN PER MD ORDERS, VSS, WILL CONTINUE TO MONITOR.
--- NOTE | 2020-05-22 10:09 | NUR ---
PT TOLERATING DOBUTAMINE INFUSION, IV SITE BENIGN, VSS, WILL CONTINUE TO MONITOR.
--- NOTE | 2020-05-22 11:34 | NUR ---
Discharge Instructions See e-MAR for any mediations given with this visit. Patient education given on disease process. Patient verbalized understanding. Previous labs reviewed. Patient discharged in stable condition with after care instructions and follow up appointment ON MONDAY. NOTE DOBUTAMINE IV [id number] ADMIN BY MITCH CULVER VIT B12 IM ADMIN BY ANTONELLA Nolan DELTOID LOT# [id number] EXP 10/08
== END | disposition home or self-care (01) ==
LOC: CHF HDHVI 08:20
PROVIDERS: ATTEND Internal Medicine Cardiovascular Disease
DX: I11.0 Hypertensive heart disease with heart failure (principal); I50.23 Acute on chronic systolic (congestive) heart failure; I25.10 Atherosclerotic heart disease of native coronary artery without angina pectoris; I48.91 Unspecified atrial fibrillation; I25.2 Old myocardial infarction; I42.8 Other cardiomyopathies; I27.21 Secondary pulmonary arterial hypertension; J43.9 Emphysema, unspecified; K21.9 Gastro-esophageal reflux disease without esophagitis; R06.02 Shortness of breath; E78.5 Hyperlipidemia, unspecified; E03.9 Hypothyroidism, unspecified; G89.29 Other chronic pain; R53.83 Other fatigue; E78.00 Pure hypercholesterolemia, unspecified; J90 Pleural effusion, not elsewhere classified; E11.9 Type 2 diabetes mellitus without complications; E43 Unspecified severe protein-calorie malnutrition; Z79.899 Other long term (current) drug therapy; Z85.46 Personal history of malignant neoplasm of prostate; Z85.810 Personal history of malignant neoplasm of tongue; Z87.891 Personal history of nicotine dependence; Z95.1 Presence of aortocoronary bypass graft; Z90.49 Acquired absence of other specified parts of digestive tract; Z95.810 Presence of automatic (implantable) cardiac defibrillator; Z79.01 Long term (current) use of anticoagulants; Z95.5 Presence of coronary angioplasty implant and graft; Z86.73 Personal history of transient ischemic attack (TIA), and cerebral infarction without residual deficits
CPT/HCPCS: 96365; 96366; 96372; G0463; J1250; J3420

== ENCOUNTER → 2020-05-25 | Outpatient (CLI) | payer MEDICARE ==
[2020-05-25] VITALS (9 sets, daily range): BP systolic 136–175; BP diastolic 61–80
[~2020-05-25] MED LIST changes: -CYANOCOBALAMIN (B-12) 1000 MCG/1 ML VIAL IM ONE; -CYANOCOBALAMIN (B-12) 1000 MCG/1 ML VIAL ONE
--- NOTE | 2020-05-25 08:12 | NUR ---
CLINIC PT ARRIVED TO THE [facility] FOR WEEKLY SCHEDULED CHF EVAL AND TX PER MD ORDERS, A/OX4, AMBULATORY, BREATHING IS EVEN AND UNLABORED.
--- NOTE | 2020-05-25 08:26 | NUR ---
IV insertion IV access obtained, via clean sterile technique by inserting 22 gauge catheter at LW after 1 attempt(s). IV secured properly. No trauma to site. Patient tolerated procedure well. LABS DRAWN AND SENT. NOTE INSERTED BY MITCH CULVER
--- NOTE | 2020-05-25 08:31 | NUR ---
DOBUTAMINE IV STARTED @ 5 MCG/KG/MIN PER MD ORDERS, VSS, WILL CONTINUE TO MONITOR.
--- NOTE | 2020-05-25 10:06 | NUR ---
PT TOLERATING DOBUTAMINE INFUSION, IV SITE BENIGN, VSS, WILL CONTINUE TO MONITOR
--- NOTE | 2020-05-25 11:50 | NUR ---
Discharge Instructions See e-MAR for any mediations given with this visit. Patient education given on disease process. Patient verbalized understanding. Previous labs reviewed. Patient discharged in stable condition with after care instructions and follow up appointment ON MONDAY. NOTE DOBUTAMINE IV [id number] ADMIN BY MITCH CULVER
[2020-05-25 12:19] LABS: Potassium 4.1 mmol/L (3.5-5.1)
[2020-05-25 12:25] LABS: BUN/Creatinine Ratio 24.4; Calcium 8.9 mg/dL (8.5-10.1); Magnesium 2.8 mg/dL (1.6-2.6)
== END | disposition home or self-care (01) ==
LOC: CHF HDHVI 08:26
PROVIDERS: ATTEND Internal Medicine Cardiovascular Disease
DX: I11.0 Hypertensive heart disease with heart failure (principal); I50.23 Acute on chronic systolic (congestive) heart failure; R53.83 Other fatigue; I25.10 Atherosclerotic heart disease of native coronary artery without angina pectoris; I48.91 Unspecified atrial fibrillation; I25.2 Old myocardial infarction; I27.21 Secondary pulmonary arterial hypertension; I42.8 Other cardiomyopathies; J43.9 Emphysema, unspecified; R06.02 Shortness of breath; K21.9 Gastro-esophageal reflux disease without esophagitis; E78.5 Hyperlipidemia, unspecified; E03.9 Hypothyroidism, unspecified; J90 Pleural effusion, not elsewhere classified; G89.29 Other chronic pain; E78.00 Pure hypercholesterolemia, unspecified; E11.9 Type 2 diabetes mellitus without complications; E43 Unspecified severe protein-calorie malnutrition; M19.90 Unspecified osteoarthritis, unspecified site; Z79.899 Other long term (current) drug therapy; Z85.810 Personal history of malignant neoplasm of tongue; Z85.46 Personal history of malignant neoplasm of prostate; Z79.01 Long term (current) use of anticoagulants; Z90.49 Acquired absence of other specified parts of digestive tract; Z87.891 Personal history of nicotine dependence; Z95.810 Presence of automatic (implantable) cardiac defibrillator; Z95.1 Presence of aortocoronary bypass graft; Z86.73 Personal history of transient ischemic attack (TIA), and cerebral infarction without residual deficits
CPT/HCPCS: 36415; 80048; 83735; 83880; 96365; 96366; G0463; J1250

== ENCOUNTER → 2020-05-29 | Outpatient (CLI) | payer MEDICARE ==
[2020-05-29] VITALS (9 sets, daily range): BP systolic 113–156; BP diastolic 49–75
[~2020-05-29] VITALS: Ht 177.8 cm; Wt 56.7 kg
== END | disposition home or self-care (01) ==
LOC: CHF HDHVI 08:26
PROVIDERS: ATTEND Internal Medicine Cardiovascular Disease
DX: I11.0 Hypertensive heart disease with heart failure (principal); I50.23 Acute on chronic systolic (congestive) heart failure; R53.83 Other fatigue; I25.10 Atherosclerotic heart disease of native coronary artery without angina pectoris; I27.21 Secondary pulmonary arterial hypertension; I48.91 Unspecified atrial fibrillation; I25.2 Old myocardial infarction; I42.8 Other cardiomyopathies; J43.9 Emphysema, unspecified; K21.9 Gastro-esophageal reflux disease without esophagitis; E78.5 Hyperlipidemia, unspecified; E03.9 Hypothyroidism, unspecified; E78.00 Pure hypercholesterolemia, unspecified; E11.9 Type 2 diabetes mellitus without complications; E43 Unspecified severe protein-calorie malnutrition; J90 Pleural effusion, not elsewhere classified; Z79.899 Other long term (current) drug therapy; Z85.810 Personal history of malignant neoplasm of tongue; Z85.46 Personal history of malignant neoplasm of prostate; Z87.891 Personal history of nicotine dependence; Z95.1 Presence of aortocoronary bypass graft; Z95.810 Presence of automatic (implantable) cardiac defibrillator; Z86.73 Personal history of transient ischemic attack (TIA), and cerebral infarction without residual deficits; Z79.01 Long term (current) use of anticoagulants; Z90.49 Acquired absence of other specified parts of digestive tract; Z95.5 Presence of coronary angioplasty implant and graft
CPT/HCPCS: 96365; 96366; G0463; J1250

== ENCOUNTER → 2020-06-01 | Outpatient (CLI) | payer MEDICARE ==
[~2020-06-01] VITALS: Ht 30.5 cm; Wt 58.1 kg
[2020-06-01] VITALS (8 sets, daily range): BP systolic 136–168; BP diastolic 54–77
--- NOTE | 2020-06-01 08:15 | NUR ---
CLINIC PT ARRIVED TO [facility] CL[facility] FOR SCHEDULE WEEKLY CHF EVAL AND TX. PT A/OX4, AMBULATORY AND BREATHING EVEN AND UNLABORED.
--- NOTE | 2020-06-01 08:25 | NUR ---
IV insertion IV access obtained, via clean sterile technique by inserting 22 gauge catheter at L HAND after attempt(s). IV secured properly. No trauma to site. Patient tolerated procedure well. LABS DRAWN AND SENT. NOTE IV INSERTED BY ABIOLA ANTON
--- NOTE | 2020-06-01 08:28 | NUR ---
DOBUTAMINE IV AT 5MCG/KG/MIN STARTED.
--- NOTE | 2020-06-01 10:00 | NUR ---
PT SITTING IN CHAIR COMFORTABLY, IV SITE NO S/S OF INFILTRATION, VSS AND WILL CONTINUE TO MONITOR.
--- NOTE | 2020-06-01 11:35 | NUR ---
IV removal IV DC'd with sterile technique, catheter fully intact. Pressure dressing applied to site. Patient tolerated procedure well. Discharged with aftercare instructions per MD. NOTE: IV DISCONTINUED BY ABIOLA BURRIS
--- NOTE | 2020-06-01 11:48 | NUR ---
Discharge Instructions See e-MAR for any mediations given with this visit. Patient education given on disease process. Patient verbalized understanding. Previous labs reviewed. Patient discharged in stable condition with after care instructions and follow up appointment ON MONDAY. NOTE DOBUTAMINE IV [id number] ADMIN BY ABIOLA BURRIS
[2020-06-01 12:13] LABS: Potassium 4.4 mmol/L (3.5-5.1)
[2020-06-01 12:19] LABS: Calcium 8.9 mg/dL (8.5-10.1)
== END | disposition home or self-care (01) ==
LOC: CHF HDHVI 08:35
PROVIDERS: ATTEND Internal Medicine Cardiovascular Disease
DX: I11.0 Hypertensive heart disease with heart failure (principal); I50.23 Acute on chronic systolic (congestive) heart failure; I25.10 Atherosclerotic heart disease of native coronary artery without angina pectoris; J43.9 Emphysema, unspecified; K21.9 Gastro-esophageal reflux disease without esophagitis; E78.5 Hyperlipidemia, unspecified; E03.9 Hypothyroidism, unspecified; I25.2 Old myocardial infarction; Z79.899 Other long term (current) drug therapy; Z79.01 Long term (current) use of anticoagulants; Z90.49 Acquired absence of other specified parts of digestive tract; Z95.810 Presence of automatic (implantable) cardiac defibrillator; Z85.46 Personal history of malignant neoplasm of prostate; Z85.810 Personal history of malignant neoplasm of tongue
CPT/HCPCS: 36415; 80048; 83880; 96365; 96366; G0463; J1250

== ENCOUNTER → 2020-06-05 | Outpatient (CLI) | payer MEDICARE ==
[2020-06-05] VITALS (9 sets, daily range): BP systolic 128–161; BP diastolic 51–78
== END | disposition home or self-care (01) ==
LOC: CHF HDHVI 08:37
PROVIDERS: ATTEND Internal Medicine Cardiovascular Disease
DX: I11.0 Hypertensive heart disease with heart failure (principal); I50.23 Acute on chronic systolic (congestive) heart failure; R53.83 Other fatigue; I42.8 Other cardiomyopathies; I25.10 Atherosclerotic heart disease of native coronary artery without angina pectoris; I48.91 Unspecified atrial fibrillation; I25.2 Old myocardial infarction; I27.21 Secondary pulmonary arterial hypertension; J43.9 Emphysema, unspecified; K21.9 Gastro-esophageal reflux disease without esophagitis; E78.5 Hyperlipidemia, unspecified; E03.9 Hypothyroidism, unspecified; E78.00 Pure hypercholesterolemia, unspecified; E11.9 Type 2 diabetes mellitus without complications; E43 Unspecified severe protein-calorie malnutrition; G89.29 Other chronic pain; J90 Pleural effusion, not elsewhere classified; M19.90 Unspecified osteoarthritis, unspecified site; Z79.899 Other long term (current) drug therapy; Z85.810 Personal history of malignant neoplasm of tongue; Z85.46 Personal history of malignant neoplasm of prostate; Z95.810 Presence of automatic (implantable) cardiac defibrillator; Z87.891 Personal history of nicotine dependence; Z95.5 Presence of coronary angioplasty implant and graft; Z90.49 Acquired absence of other specified parts of digestive tract; Z79.01 Long term (current) use of anticoagulants; Z86.73 Personal history of transient ischemic attack (TIA), and cerebral infarction without residual deficits
CPT/HCPCS: 96365; 96366; G0463; J1250

== ENCOUNTER → 2020-06-08 | Outpatient (CLI) | payer MEDICARE ==
[2020-06-08] VITALS (11 sets, daily range): BP systolic 133–205; BP diastolic 51–116
--- NOTE | 2020-06-08 08:42 | NUR ---
CLINIC PT ARRIVED TO [facility] FOR SCHEDULED WEEKLY CHF EVAL , TX AND DOBUTAMINE GTT. PT A/OX4, AMBULATORY AND BREATHING EVEN AND UNLABORED.
--- NOTE | 2020-06-08 08:50 | NUR ---
IV insertion IV access obtained, via clean sterile technique by inserting 22 gauge catheter at L UPPER ARM after 1 attempt(s). IV secured properly. No trauma to site. Patient tolerated procedure well. ORDERED LABS DRAWN AND SENT TO LAB. IV INSERTION DONE BY ABIOLA BURRIS
--- NOTE | 2020-06-08 09:06 | NUR ---
Clinic Provider Clinic Provider into see pt with new orders received and carried out. Dobutamine gtt started at {5}mcg/kg/hr per MD order.
--- NOTE | 2020-06-08 10:20 | NUR ---
PT SITTING INN CHAIR, REPORTS TO BE COLD AND SHAKY. O2 SAT AT 88% RA. 2L VIA N/C ADMINISTERED AND O2 SAT INCREASED TO 96%. ADDITIONAL BLANKETS PROVIDED AND DOBUTAMINE STOPPED AT 1024 PER MD ORDERS AND WILL CONTINUE TO MONITORED. IV SITE INTACT AND NO S/S OF INFILTRATION.
--- NOTE | 2020-06-08 10:53 | NUR ---
DOBUTAMINE RESTARTED AT 3 MCG/KG/MIN PER MD ORDERS. VS BACK TO BASE LINE AND PT REPORTS FEELING BETTER. O2 SAT 98% AT 2 L VIA N/C CONTINUE.
--- NOTE | 2020-06-08 12:10 | NUR ---
IV removal IV DC'd with sterile technique, catheter fully intact. Pressure dressing applied to site. Patient tolerated procedure well. Discharged with aftercare instructions per MD. NOTE: IV D/C BY ABIOLA BURRIS
--- NOTE | 2020-06-08 12:30 | NUR ---
Discharge Instructions See e-MAR for any mediations given with this visit. Patient education given on disease process. Patient verbalized understanding. Previous labs reviewed. Patient discharged in stable condition with after care instructions and follow up appointment ON MONDAY. NOTE: DOBUTAMINE IV [id number] ADMIN BY ABIOLA BURRIS
[2020-06-08 12:37] LABS: BUN/Creatinine Ratio 19.4; Calcium 8.7 mg/dL (8.5-10.1); Magnesium 2.5 mg/dL (1.6-2.6); Potassium 4.1 mmol/L (3.5-5.1)
== END | disposition home or self-care (01) ==
LOC: CHF HDHVI 08:43
PROVIDERS: ATTEND Internal Medicine Cardiovascular Disease
DX: I11.0 Hypertensive heart disease with heart failure (principal); I50.23 Acute on chronic systolic (congestive) heart failure; E83.40 Disorders of magnesium metabolism, unspecified; R53.83 Other fatigue; I48.91 Unspecified atrial fibrillation; I25.10 Atherosclerotic heart disease of native coronary artery without angina pectoris; I27.21 Secondary pulmonary arterial hypertension; I25.2 Old myocardial infarction; I42.8 Other cardiomyopathies; J43.9 Emphysema, unspecified; J90 Pleural effusion, not elsewhere classified; K21.9 Gastro-esophageal reflux disease without esophagitis; E78.5 Hyperlipidemia, unspecified; E03.9 Hypothyroidism, unspecified; E78.00 Pure hypercholesterolemia, unspecified; E11.9 Type 2 diabetes mellitus without complications; M19.90 Unspecified osteoarthritis, unspecified site; E43 Unspecified severe protein-calorie malnutrition; Z95.1 Presence of aortocoronary bypass graft; Z79.899 Other long term (current) drug therapy; Z85.810 Personal history of malignant neoplasm of tongue; Z85.46 Personal history of malignant neoplasm of prostate; Z87.891 Personal history of nicotine dependence; Z95.810 Presence of automatic (implantable) cardiac defibrillator; Z95.5 Presence of coronary angioplasty implant and graft; Z90.49 Acquired absence of other specified parts of digestive tract; Z79.01 Long term (current) use of anticoagulants; Z86.73 Personal history of transient ischemic attack (TIA), and cerebral infarction without residual deficits
CPT/HCPCS: 36415; 80048; 83735; 83880; 85610; 96365; 96366; G0463; J1250

== ENCOUNTER → 2020-06-17 | Outpatient (CLI) | payer MEDICARE ==
[2020-06-17] VITALS (9 sets, daily range): BP systolic 133–179; BP diastolic 50–78
[~2020-06-17] MED LIST changes: +CYANOCOBALAMIN (B-12) 1000 MCG/1 ML VIAL IM ONE; +CYANOCOBALAMIN (B-12) 1000 MCG/1 ML VIAL ONE; +FUROSEMIDE 40 MG/4 ML VIAL IV ONE; +FUROSEMIDE 40 MG/4 ML VIAL ONE; +POTASSIUM CHL 20 Meq TABLET PO ONE; +POTASSIUM EFFERVESENT TAB 25 MEQ ONE; +POTASSIUM EFFERVESENT TAB 25 MEQ PO ONE
[2020-06-17 10:35] LABS: Potassium 4.1 mmol/L (3.5-5.1)
[2020-06-17 10:52] LABS: Basophils # (auto) 0.1 10 ^3/uL (0-0.2); Eosinophils # (auto) 0.3 10 ^3/uL (0-0.8); Eosinophils % (auto) 4.3 % (0.0-7.0); Hematocrit 32.6 % (41.0-53.0); Hemoglobin 10.7 g/dL (13.5-17.5); Lymphocytes # (auto) 0.5 10 ^3/uL (0.4-5.4); Lymphocytes % (auto) 9.1 % (10.0-50.0); Mean Corpuscular Hemoglobin 28.9 pg (28.0-32.0); Mean Corpuscular Hgb Conc. 32.9 g/dL (32.0-36.0); Mean Corpuscular Volume 87.8 fL (80.0-100.0); Monocytes # (auto) 0.4 10 ^3/uL (0-1.3); Monocytes % (auto) 6.2 % (0.0-12.0); Neutrophils # (auto) 4.7 10 ^3/uL (1.6-8.6); Neutrophils % (auto) 79.4 % (37.0-80.0); Nucleated Red Blood Cells % 0.2 %; Platelet Count (auto) 305 10^3/uL (140-450); Red Blood Cells 3.71 10^6/uL (4.5-5.90); Red Cell Distribution Width 15.6 % (11.8-14.3); White Blood Cell 5.9 10^3/uL (4.4-10.8)
== END | disposition home or self-care (01) ==
LOC: CHF HDHVI 09:31
PROVIDERS: ATTEND Internal Medicine Cardiovascular Disease
DX: I11.0 Hypertensive heart disease with heart failure (principal); I50.23 Acute on chronic systolic (congestive) heart failure; R53.83 Other fatigue; I48.91 Unspecified atrial fibrillation; I25.10 Atherosclerotic heart disease of native coronary artery without angina pectoris; I27.21 Secondary pulmonary arterial hypertension; I25.2 Old myocardial infarction; I42.8 Other cardiomyopathies; J43.9 Emphysema, unspecified; E03.9 Hypothyroidism, unspecified; E78.00 Pure hypercholesterolemia, unspecified; E11.9 Type 2 diabetes mellitus without complications; M19.90 Unspecified osteoarthritis, unspecified site; E78.5 Hyperlipidemia, unspecified; J90 Pleural effusion, not elsewhere classified; E43 Unspecified severe protein-calorie malnutrition; G89.29 Other chronic pain; Z79.899 Other long term (current) drug therapy; Z85.810 Personal history of malignant neoplasm of tongue; Z90.49 Acquired absence of other specified parts of digestive tract; Z87.891 Personal history of nicotine dependence; Z95.1 Presence of aortocoronary bypass graft; Z95.810 Presence of automatic (implantable) cardiac defibrillator; Z79.01 Long term (current) use of anticoagulants; Z86.73 Personal history of transient ischemic attack (TIA), and cerebral infarction without residual deficits
CPT/HCPCS: 36415; 82565; 83880; 84132; 84520; 85025; 96365; 96366; 96372; 96375; G0463; J1250; J1940; J3420; 96374

== ENCOUNTER → 2020-06-24 | Outpatient (CLI) | payer MEDICARE ==
[~2020-06-24] VITALS: Ht 30.5 cm; Wt 56.4 kg
[2020-06-24] VITALS (10 sets, daily range): BP systolic 125–182; BP diastolic 53–86
[~2020-06-24] MED LIST changes: -CYANOCOBALAMIN (B-12) 1000 MCG/1 ML VIAL IM ONE; -CYANOCOBALAMIN (B-12) 1000 MCG/1 ML VIAL ONE; -FUROSEMIDE 40 MG/4 ML VIAL IV ONE; -FUROSEMIDE 40 MG/4 ML VIAL ONE; -POTASSIUM CHL 20 Meq TABLET PO ONE; -POTASSIUM EFFERVESENT TAB 25 MEQ ONE; -POTASSIUM EFFERVESENT TAB 25 MEQ PO ONE
[2020-06-24 11:50] LABS: Basophils # (auto) 0.1 10 ^3/uL (0-0.2); Basophils % (auto) 1.7 % (0.0-2.0); Eosinophils # (auto) 0.2 10 ^3/uL (0-0.8); Eosinophils % (auto) 4.9 % (0.0-7.0); Hematocrit 31.1 % (41.0-53.0); Hemoglobin 10.1 g/dL (13.5-17.5); Lymphocytes # (auto) 0.8 10 ^3/uL (0.4-5.4); Lymphocytes % (auto) 15.5 % (10.0-50.0); Mean Corpuscular Hemoglobin 28.7 pg (28.0-32.0); Mean Corpuscular Hgb Conc. 32.6 g/dL (32.0-36.0); Mean Corpuscular Volume 88.2 fL (80.0-100.0); Monocytes # (auto) 0.4 10 ^3/uL (0-1.3); Monocytes % (auto) 8.4 % (0.0-12.0); Neutrophils # (auto) 3.5 10 ^3/uL (1.6-8.6); Neutrophils % (auto) 69.5 % (37.0-80.0); Platelet Count (auto) 280 10^3/uL (140-450); Red Blood Cells 3.52 10^6/uL (4.5-5.90); Red Cell Distribution Width 15.3 % (11.8-14.3); White Blood Cell 5.1 10^3/uL (4.4-10.8)
[2020-06-24 11:59] LABS: Albumin 3.1 g/dL (3.4-5.0); BUN/Creatinine Ratio 19.4; Calcium 8.7 mg/dL (8.5-10.1)
[2020-06-24 12:02] LABS: Bilirubin, Total 0.7 mg/dL (0.2-1.0)
== END | disposition home or self-care (01) ==
LOC: CHF HDHVI 08:42
PROVIDERS: ATTEND Internal Medicine Cardiovascular Disease
DX: I11.0 Hypertensive heart disease with heart failure (principal); I50.23 Acute on chronic systolic (congestive) heart failure; I25.10 Atherosclerotic heart disease of native coronary artery without angina pectoris; J43.9 Emphysema, unspecified; K21.9 Gastro-esophageal reflux disease without esophagitis; E03.9 Hypothyroidism, unspecified; I25.2 Old myocardial infarction; E78.00 Pure hypercholesterolemia, unspecified; E11.9 Type 2 diabetes mellitus without complications; I48.91 Unspecified atrial fibrillation; M19.90 Unspecified osteoarthritis, unspecified site; Z86.73 Personal history of transient ischemic attack (TIA), and cerebral infarction without residual deficits; Z79.01 Long term (current) use of anticoagulants; Z90.49 Acquired absence of other specified parts of digestive tract; Z79.899 Other long term (current) drug therapy; Z87.891 Personal history of nicotine dependence; Z95.5 Presence of coronary angioplasty implant and graft; Z85.46 Personal history of malignant neoplasm of prostate; Z85.810 Personal history of malignant neoplasm of tongue
CPT/HCPCS: 36415; 80053; 83880; 85025; 96365; 96366; G0463; J1250

== ENCOUNTER → 2020-07-02 | Outpatient (CLI) | payer MEDICARE ==
[2020-07-02] VITALS (10 sets, daily range): BP systolic 120–195; BP diastolic 54–81
[~2020-07-02] MED LIST changes: +TESTOSTERONE CYPIONATE 200 MG/ML 1ML VIAL IM ONE
[2020-07-02 11:40] LABS: Basophils # (auto) 0.1 10 ^3/uL (0-0.2); Basophils % (auto) 1.1 % (0.0-2.0); Eosinophils # (auto) 0.3 10 ^3/uL (0-0.8); Eosinophils % (auto) 4.9 % (0.0-7.0); Hematocrit 31.5 % (41.0-53.0); Hemoglobin 10.4 g/dL (13.5-17.5); Lymphocytes # (auto) 0.5 10 ^3/uL (0.4-5.4); Lymphocytes % (auto) 9.1 % (10.0-50.0); Mean Corpuscular Hemoglobin 28.8 pg (28.0-32.0); Mean Corpuscular Hgb Conc. 33.1 g/dL (32.0-36.0); Monocytes # (auto) 0.4 10 ^3/uL (0-1.3); Monocytes % (auto) 8.5 % (0.0-12.0); Neutrophils # (auto) 3.9 10 ^3/uL (1.6-8.6); Neutrophils % (auto) 76.4 % (37.0-80.0); Platelet Count (auto) 278 10^3/uL (140-450); Red Blood Cells 3.61 10^6/uL (4.5-5.90); Red Cell Distribution Width 15.5 % (11.8-14.3); White Blood Cell 5.1 10^3/uL (4.4-10.8)
[2020-07-02 11:59] LABS: BUN/Creatinine Ratio 22.8; Calcium 8.7 mg/dL (8.5-10.1); Magnesium 2.4 mg/dL (1.6-2.6)
== END | disposition home or self-care (01) ==
LOC: CHF HDHVI 08:58
PROVIDERS: ATTEND Internal Medicine Cardiovascular Disease
DX: I11.0 Hypertensive heart disease with heart failure (principal); I50.23 Acute on chronic systolic (congestive) heart failure; R53.83 Other fatigue; R06.02 Shortness of breath; D64.9 Anemia, unspecified; I25.10 Atherosclerotic heart disease of native coronary artery without angina pectoris; I42.9 Cardiomyopathy, unspecified; E11.9 Type 2 diabetes mellitus without complications; J43.9 Emphysema, unspecified; K21.9 Gastro-esophageal reflux disease without esophagitis; E03.9 Hypothyroidism, unspecified; I25.2 Old myocardial infarction; E78.00 Pure hypercholesterolemia, unspecified; I48.91 Unspecified atrial fibrillation; E78.5 Hyperlipidemia, unspecified; G89.29 Other chronic pain; Z90.49 Acquired absence of other specified parts of digestive tract; Z79.01 Long term (current) use of anticoagulants; Z79.899 Other long term (current) drug therapy; Z95.810 Presence of automatic (implantable) cardiac defibrillator; Z85.46 Personal history of malignant neoplasm of prostate; Z95.5 Presence of coronary angioplasty implant and graft; Z87.891 Personal history of nicotine dependence
CPT/HCPCS: 36415; 80048; 83735; 83880; 85025; 96365; 96366; 96372; G0463; J1071; J1250

== ENCOUNTER → 2020-07-09 | Outpatient (CLI) | payer MEDICARE ==
[2020-07-09] VITALS (12 sets, daily range): BP systolic 92–166; BP diastolic 54–84
[~2020-07-09] MED LIST changes: +CARV6.2551 PO; +LEVOTAB51 PO; +SACU1TAB PO; +SACU1TAB7 PO; -TESTOSTERONE CYPIONATE 200 MG/ML 1ML VIAL IM ONE; +WARF1TAB36 PO
[2020-07-09 10:01] LABS: Basophils # (auto) 0.1 10 ^3/uL (0-0.2); Basophils % (auto) 1.2 % (0.0-2.0); Eosinophils # (auto) 0.2 10 ^3/uL (0-0.8); Eosinophils % (auto) 4.6 % (0.0-7.0); Hematocrit 31.8 % (41.0-53.0); Hemoglobin 10.6 g/dL (13.5-17.5); Lymphocytes # (auto) 0.5 10 ^3/uL (0.4-5.4); Lymphocytes % (auto) 10.4 % (10.0-50.0); Mean Corpuscular Hemoglobin 29.4 pg (28.0-32.0); Mean Corpuscular Hgb Conc. 33.4 g/dL (32.0-36.0); Mean Corpuscular Volume 87.9 fL (80.0-100.0); Monocytes # (auto) 0.3 10 ^3/uL (0-1.3); Neutrophils # (auto) 3.3 10 ^3/uL (1.6-8.6); Neutrophils % (auto) 76.8 % (37.0-80.0); Red Blood Cells 3.62 10^6/uL (4.5-5.90); Red Cell Distribution Width 15.7 % (11.8-14.3); White Blood Cell 4.4 10^3/uL (4.4-10.8)
[2020-07-09 10:10] LABS: Calcium 8.6 mg/dL (8.5-10.1); Magnesium 2.4 mg/dL (1.6-2.6); Potassium 3.9 mmol/L (3.5-5.1)
== END | disposition home or self-care (01) ==
LOC: CHF HDHVI 08:43
PROVIDERS: ATTEND Internal Medicine Cardiovascular Disease
DX: I11.0 Hypertensive heart disease with heart failure (principal); I50.23 Acute on chronic systolic (congestive) heart failure; R53.83 Other fatigue; I48.91 Unspecified atrial fibrillation; I25.10 Atherosclerotic heart disease of native coronary artery without angina pectoris; I25.2 Old myocardial infarction; I27.21 Secondary pulmonary arterial hypertension; I42.8 Other cardiomyopathies; J43.9 Emphysema, unspecified; K21.9 Gastro-esophageal reflux disease without esophagitis; E03.9 Hypothyroidism, unspecified; G89.29 Other chronic pain; E78.00 Pure hypercholesterolemia, unspecified; E11.9 Type 2 diabetes mellitus without complications; M19.90 Unspecified osteoarthritis, unspecified site; J90 Pleural effusion, not elsewhere classified; E43 Unspecified severe protein-calorie malnutrition; Z79.899 Other long term (current) drug therapy; Z85.46 Personal history of malignant neoplasm of prostate; Z87.891 Personal history of nicotine dependence; Z95.810 Presence of automatic (implantable) cardiac defibrillator; Z95.5 Presence of coronary angioplasty implant and graft; Z79.01 Long term (current) use of anticoagulants; Z90.49 Acquired absence of other specified parts of digestive tract; Z95.1 Presence of aortocoronary bypass graft; Z85.810 Personal history of malignant neoplasm of tongue; Z86.73 Personal history of transient ischemic attack (TIA), and cerebral infarction without residual deficits
CPT/HCPCS: 36415; 80048; 83735; 85025; 96365; 96366; G0463; J1250

== ENCOUNTER → 2020-07-15 | Outpatient (CLI) | payer MEDICARE ==
[~2020-07-15] VITALS: Ht 30.5 cm; Wt 1.6 kg
[2020-07-15] VITALS (9 sets, daily range): BP systolic 120–170; BP diastolic 62–99
[~2020-07-15] MED LIST changes: -CARV6.2551 PO; -LEVOTAB51 PO; -SACU1TAB PO; -SACU1TAB7 PO; -WARF1TAB36 PO
[2020-07-15 11:45] LABS: Basophils # (auto) 0.1 10 ^3/uL (0-0.2); Basophils % (auto) 1.2 % (0.0-2.0); Eosinophils # (auto) 0.3 10 ^3/uL (0-0.8); Eosinophils % (auto) 5.8 % (0.0-7.0); Hematocrit 30.9 % (41.0-53.0); Hemoglobin 10.3 g/dL (13.5-17.5); Lymphocytes # (auto) 0.6 10 ^3/uL (0.4-5.4); Lymphocytes % (auto) 11.3 % (10.0-50.0); Mean Corpuscular Hemoglobin 29.4 pg (28.0-32.0); Mean Corpuscular Hgb Conc. 33.4 g/dL (32.0-36.0); Mean Corpuscular Volume 87.9 fL (80.0-100.0); Monocytes # (auto) 0.4 10 ^3/uL (0-1.3); Monocytes % (auto) 8.7 % (0.0-12.0); Neutrophils # (auto) 3.7 10 ^3/uL (1.6-8.6); Platelet Count (auto) 299 10^3/uL (140-450); Red Blood Cells 3.52 10^6/uL (4.5-5.90); Red Cell Distribution Width 15.5 % (11.8-14.3)
[2020-07-15 12:01] LABS: Calcium 8.5 mg/dL (8.5-10.1); Magnesium 2.3 mg/dL (1.6-2.6); Potassium 4.2 mmol/L (3.5-5.1)
== END | disposition home or self-care (01) ==
LOC: CHF HDHVI 08:53
PROVIDERS: ATTEND Internal Medicine Cardiovascular Disease
DX: I11.0 Hypertensive heart disease with heart failure (principal); I50.43 Acute on chronic combined systolic (congestive) and diastolic (congestive) heart failure; D64.9 Anemia, unspecified; R53.83 Other fatigue; R06.02 Shortness of breath; E11.9 Type 2 diabetes mellitus without complications; I25.10 Atherosclerotic heart disease of native coronary artery without angina pectoris; I25.2 Old myocardial infarction; I42.8 Other cardiomyopathies; I48.91 Unspecified atrial fibrillation; J43.9 Emphysema, unspecified; K21.9 Gastro-esophageal reflux disease without esophagitis; E78.00 Pure hypercholesterolemia, unspecified; E78.5 Hyperlipidemia, unspecified; E03.9 Hypothyroidism, unspecified; G89.29 Other chronic pain; Z90.49 Acquired absence of other specified parts of digestive tract; Z79.899 Other long term (current) drug therapy; Z79.01 Long term (current) use of anticoagulants; Z85.46 Personal history of malignant neoplasm of prostate; Z85.810 Personal history of malignant neoplasm of tongue; Z95.5 Presence of coronary angioplasty implant and graft; Z95.810 Presence of automatic (implantable) cardiac defibrillator; Z87.891 Personal history of nicotine dependence
CPT/HCPCS: 36415; 80048; 83735; 83880; 85025; 96365; 96366; G0463; J1250

== ENCOUNTER 2020-07-28 17:37 | Inpatient (IN) | payer MEDICARE ==
[~2020-07-28] VITALS: Ht 175.3 cm; Wt 61.4 kg
[~2020-07-28 17:37] MED LIST changes: -DOBUTamine 1000MCG/ML 250 ML IV ONE
[2020-07-28] MEDS ORDERED: methylPREDNISolone SOD SUCC 125 MG/2 ML VL IV ONE (18:00)
[2020-07-28 18:55] LABS: BUN/Creatinine Ratio 21.3; Calcium 6.5 mg/dL (8.5-10.1); Potassium 3.5 mmol/L (3.5-5.1)
[2020-07-28 18:58] LABS: Bilirubin, Total 0.7 mg/dL (0.2-1.0); Total Protein 5.7 g/dL (6.4-8.2)
[2020-07-28 19:23] LABS: CRP High Sensitivity 2.98 mg/dL (< 0.3)
[2020-07-28 23:00] LABS: Hematocrit 31.8 % (41.0-53.0); Hemoglobin 10.5 g/dL (13.5-17.5); Mean Corpuscular Hemoglobin 29.1 pg (28.0-32.0); Mean Corpuscular Hgb Conc. 32.8 g/dL (32.0-36.0); Mean Corpuscular Volume 88.7 fL (80.0-100.0); Platelet Count (auto) 83 10^3/uL (140-450); Red Blood Cells 3.59 10^6/uL (4.5-5.90); Red Cell Distribution Width 15.4 % (11.8-14.3); White Blood Cell 10.6 10^3/uL (4.4-10.8)
[2020-07-28] MEDS ORDERED: NITROGLYCERIN 0.4 MG SL TAB SL PRN ×2 (23:00→23:45)
[2020-07-28] MEDS ORDERED: FUROSEMIDE INJECTION 100 MG in SODIUM CHL 0.9% 100 ML IV SCH ×2 (23:00→23:45)
[2020-07-28] MEDS ORDERED: DOBUTamine 1000MCG/ML 250 ML IV SCH (23:00)
[2020-07-28] MEDS ORDERED: MORPHINE SULF INJ 2 MG/ML SYRINGE 1ML IV PRN ×2 (23:00→23:45)
[2020-07-28] MEDS ORDERED: REMDESIVIR PER PHARMACY 0 ML IV SCH (23:00)
[2020-07-28 23:18] LABS: Basophils % (manual) 0 (0.0-2.0); Blast Cells 0; Eosinophils % (manual) 0 (0-7); Metamyelocytes % 0; Myelocytes % 0; Promyelocytes % 0; Reactive Lymphocytes 0
[2020-07-28] MEDS ORDERED: CLOPIDOGREL BISULFATE 75 MG TAB PO SCH (23:45)
[2020-07-28] MEDS: DOBUTamine 1000MCG/ML 250 ML IV SCH (23:45)
[2020-07-29] MEDS ORDERED: REMDESIVIR PER PHARMACY 0 ML IV SCH
[2020-07-29 00:18] LABS: Band Neutrophils % (manual) 38; Lymphocytes % (manual) 2 (10.0-50.0); Monocytes % (manual) 1 (0-12)
[2020-07-29 00:50] VITALS: BP 130/70
[2020-07-29] MEDS ORDERED: FUROSEMIDE INJECTION 100 MG in SODIUM CHL 0.9% 100 ML IV ONE (02:45)
[2020-07-29] MEDS ORDERED: FUROSEMIDE INJECTION 10 ML ONE (03:07)
[2020-07-29] MEDS ORDERED: ERGOCALCIFEROL 50,000 UNIT(1.25MG) CAP PO SCH (09:00)
[2020-07-29] MEDS ORDERED: TAMSULOSIN HYDROCHLORIDE 0.4 MG CAP PO SCH (10:00)
[2020-07-29] MEDS ORDERED: CARVEDILOL 3.125 MG TAB PO SCH (10:00)
[2020-07-29] MEDS ORDERED: DexAMETHasone SOD PHOS 10MG/1ML VIAL INJ IV SCH ×2 (10:00)
[2020-07-29] MEDS ORDERED: BUDESONIDE (INHALATION) 0.5 MG/2 ML NEB NEB SCH (10:00)
[2020-07-29] MEDS ORDERED: ASCORBIC ACID 500 MG TAB PO SCH ×2 (10:00)
[2020-07-29] MEDS ORDERED: CLOPIDOGREL BISULFATE 75 MG TAB PO SCH (10:00)
[2020-07-29] MEDS ORDERED: ZINC SULFATE 220mg CAP or TAB PO SCH (10:00)
[2020-07-29] MEDS ORDERED: DIGOXIN 0.125 MG TAB PO SCH (10:00)
[2020-07-29] MEDS: ZINC SULFATE 220mg CAP or TAB PO SCH (10:51)
[2020-07-29] MEDS: BUDESONIDE (INHALATION) 0.5 MG/2 ML NEB NEB SCH ×2 (10:52→18:10)
[2020-07-29] MEDS: ERGOCALCIFEROL 50,000 UNIT(1.25MG) CAP PO SCH (11:11)
[2020-07-29] MEDS: DIGOXIN 0.125 MG TAB PO SCH (11:26)
[2020-07-29] MEDS: TAMSULOSIN HYDROCHLORIDE 0.4 MG CAP PO SCH (11:27)
[2020-07-29] MEDS: CARVEDILOL 3.125 MG TAB PO SCH ×2 (11:28→21:31)
[2020-07-29 11:30] VITALS: BP 142/70
[2020-07-29] MEDS: CLOPIDOGREL BISULFATE 75 MG TAB PO SCH (11:31)
[2020-07-29] MEDS: DOBUTamine 1000MCG/ML 250 ML IV SCH ×2 (12:00→20:47)
[2020-07-29 13:58] LABS: Urine Bacteria NONE SEEN /hpf (None Seen); Urine Blood Negative /uL (Negative); Urine Hyaline Cast FEW /lpf (0 - 2); Urine Mucus FEW (None Seen); Urine Specific Gravity 1.019 (1.001-1.035); Urine WBC 1 /hpf (0 - 3)
[2020-07-29 17:17] VITALS: BP 124/74
[2020-07-29] MEDS ORDERED: VANCOMYCIN PER PHARMACY 0 MG IV SCH (21:30)
[2020-07-29 22:00] VITALS: BP 128/66
[2020-07-29] MEDS: VANCOMYCIN 1GM/250ML 250 ML IV SCH (22:25)
[2020-07-30] MEDS: DOBUTamine 1000MCG/ML 250 ML IV SCH ×2 (02:11→12:30)
[2020-07-30 02:15] VITALS: BP 101/66
[2020-07-30] MEDS ORDERED: ETOMIDATE (2MG/ML) 20ML VIAL IV ONE (02:21)
[2020-07-30 02:40] VITALS: BP 142/89
[2020-07-30 05:00] VITALS: BP 130/68
[2020-07-30 06:32] LABS: Basophils # (auto) 0 10 ^3/uL (0-0.2); Basophils % (auto) 0.2 % (0.0-2.0); Eosinophils # (auto) 0 10 ^3/uL (0-0.8); Eosinophils % (auto) 0.5 % (0.0-7.0); Hematocrit 31.8 % (41.0-53.0); Hemoglobin 10.6 g/dL (13.5-17.5); Lymphocytes # (auto) 0.4 10 ^3/uL (0.4-5.4); Lymphocytes % (auto) 4.1 % (10.0-50.0); Mean Corpuscular Hemoglobin 29.4 pg (28.0-32.0); Mean Corpuscular Hgb Conc. 33.4 g/dL (32.0-36.0); Mean Corpuscular Volume 88.1 fL (80.0-100.0); Monocytes # (auto) 0.4 10 ^3/uL (0-1.3); Monocytes % (auto) 4.6 % (0.0-12.0); Neutrophils # (auto) 7.8 10 ^3/uL (1.6-8.6); Neutrophils % (auto) 90.6 % (37.0-80.0); Nucleated Red Blood Cells % 0.1 %; Platelet Count (auto) 116 10^3/uL (140-450); Red Blood Cells 3.62 10^6/uL (4.5-5.90); Red Cell Distribution Width 15.7 % (11.8-14.3); White Blood Cell 8.7 10^3/uL (4.4-10.8)
[2020-07-30 06:53] LABS: Potassium 4.3 mmol/L (3.5-5.1)
[2020-07-30 07:00] LABS: BUN/Creatinine Ratio 30.6
[2020-07-30 08:00] VITALS: BP 135/84
[2020-07-30] MEDS: ZINC SULFATE 220mg CAP or TAB PO SCH (10:00)
[2020-07-30] MEDS: VANCOMYCIN 1GM/250ML 250 ML IV SCH ×2 (10:00→21:59)
[2020-07-30] MEDS: TAMSULOSIN HYDROCHLORIDE 0.4 MG CAP PO SCH (10:57)
[2020-07-30] MEDS: POTASSIUM EFFERVESENT TAB 25 MEQ PO SCH (10:57)
[2020-07-30] MEDS: CARVEDILOL 3.125 MG TAB PO SCH ×2 (10:57→21:14)
[2020-07-30] MEDS: DIGOXIN 0.125 MG TAB PO SCH (10:58)
[2020-07-30] MEDS: ASCORBIC ACID 1,000 MG TAB PO SCH (10:58)
[2020-07-30] MEDS: CLOPIDOGREL BISULFATE 75 MG TAB PO SCH (10:58)
[2020-07-30 17:00] VITALS: BP 139/85
[2020-07-30 21:55] VITALS: BP 127/69
[2020-07-30] MEDS: BUDESONIDE (INHALATION) 0.5 MG/2 ML NEB NEB SCH (22:14)
[2020-07-31] MEDS: DOBUTamine 1000MCG/ML 250 ML IV SCH ×2 (00:45→13:00)
[2020-07-31 05:30] VITALS: BP 116/73
[2020-07-31] MEDS: BUDESONIDE (INHALATION) 0.5 MG/2 ML NEB NEB SCH ×2 (06:12→19:49)
[2020-07-31 09:00] VITALS: BP 105/54
[2020-07-31] MEDS: CARVEDILOL 3.125 MG TAB PO SCH ×2 (10:00→22:26)
[2020-07-31] MEDS: ZINC SULFATE 220mg CAP or TAB PO SCH (10:00)
[2020-07-31] MEDS: VANCOMYCIN 1GM/250ML 250 ML IV SCH ×2 (10:23→22:26)
[2020-07-31] MEDS: TAMSULOSIN HYDROCHLORIDE 0.4 MG CAP PO SCH (10:25)
[2020-07-31] MEDS: POTASSIUM EFFERVESENT TAB 25 MEQ PO SCH (10:26)
[2020-07-31] MEDS: ASCORBIC ACID 1,000 MG TAB PO SCH (10:27)
[2020-07-31] MEDS: CLOPIDOGREL BISULFATE 75 MG TAB PO SCH (10:27)
[2020-07-31] MEDS: DIGOXIN 0.125 MG TAB PO SCH (10:27)
[2020-07-31 13:00] VITALS: BP 126/67
[2020-07-31 17:03] VITALS: BP 130/65
[2020-08-01] VITALS (8 sets, daily range): BP systolic 127–148; BP diastolic 69–80
[2020-08-01] MEDS: DOBUTamine 1000MCG/ML 250 ML IV SCH ×2 (00:54→13:30)
[2020-08-01] MEDS: VANCOMYCIN 1GM/250ML 250 ML IV SCH ×2 (09:36→22:18)
[2020-08-01] MEDS: ZINC SULFATE 220mg CAP or TAB PO SCH (09:37)
[2020-08-01] MEDS: BUDESONIDE (INHALATION) 0.5 MG/2 ML NEB NEB SCH ×2 (09:37→18:11)
[2020-08-01] MEDS: CARVEDILOL 3.125 MG TAB PO SCH ×2 (09:38→22:19)
[2020-08-01] MEDS: POTASSIUM EFFERVESENT TAB 25 MEQ PO SCH (09:39)
[2020-08-01] MEDS: TAMSULOSIN HYDROCHLORIDE 0.4 MG CAP PO SCH (09:39)
[2020-08-01] MEDS: DIGOXIN 0.125 MG TAB PO SCH (09:40)
[2020-08-01] MEDS: ASCORBIC ACID 1,000 MG TAB PO SCH (09:40)
[2020-08-01] MEDS: CLOPIDOGREL BISULFATE 75 MG TAB PO SCH (09:40)
[2020-08-02] MEDS: DOBUTamine 1000MCG/ML 250 ML IV SCH (01:45)
[2020-08-02 05:00] VITALS: BP 142/72
[2020-08-02 05:32] LABS: Basophils # (auto) 0.1 10 ^3/uL (0-0.2); Basophils % (auto) 1.1 % (0.0-2.0); Eosinophils # (auto) 0.4 10 ^3/uL (0-0.8); Eosinophils % (auto) 7.3 % (0.0-7.0); Hematocrit 31.6 % (41.0-53.0); Hemoglobin 10.2 g/dL (13.5-17.5); Lymphocytes # (auto) 0.5 10 ^3/uL (0.4-5.4); Lymphocytes % (auto) 9.4 % (10.0-50.0); Mean Corpuscular Hemoglobin 28.5 pg (28.0-32.0); Mean Corpuscular Hgb Conc. 32.2 g/dL (32.0-36.0); Mean Corpuscular Volume 88.5 fL (80.0-100.0); Monocytes # (auto) 0.4 10 ^3/uL (0-1.3); Monocytes % (auto) 7.7 % (0.0-12.0); Neutrophils # (auto) 3.8 10 ^3/uL (1.6-8.6); Neutrophils % (auto) 74.5 % (37.0-80.0); Nucleated Red Blood Cells % 0.1 %; Platelet Count (auto) 192 10^3/uL (140-450); Red Blood Cells 3.57 10^6/uL (4.5-5.90); Red Cell Distribution Width 15.6 % (11.8-14.3); White Blood Cell 5.2 10^3/uL (4.4-10.8)
[2020-08-02 05:52] LABS: Calcium 8.4 mg/dL (8.5-10.1); Potassium 4.8 mmol/L (3.5-5.1)
[2020-08-02] MEDS: BUDESONIDE (INHALATION) 0.5 MG/2 ML NEB NEB SCH ×2 (06:10→22:16)
[2020-08-02 08:00] VITALS: BP 121/65
[2020-08-02] MEDS: ZINC SULFATE 220mg CAP or TAB PO SCH (10:00)
[2020-08-02] MEDS: POTASSIUM EFFERVESENT TAB 25 MEQ PO SCH ×2 (10:00→10:51)
[2020-08-02] MEDS: ASCORBIC ACID 1,000 MG TAB PO SCH (10:00)
[2020-08-02] MEDS: CARVEDILOL 3.125 MG TAB PO SCH ×2 (10:50→22:18)
[2020-08-02] MEDS: CLOPIDOGREL BISULFATE 75 MG TAB PO SCH (10:50)
[2020-08-02] MEDS: DIGOXIN 0.125 MG TAB PO SCH (10:50)
[2020-08-02] MEDS: TAMSULOSIN HYDROCHLORIDE 0.4 MG CAP PO SCH (10:50)
[2020-08-02] MEDS: VANCOMYCIN 1GM/250ML 250 ML IV SCH ×2 (10:52→22:17)
[2020-08-02 12:10] VITALS: BP 109/63
[2020-08-02] MEDS ORDERED: ACETAMINOPHEN 325 MG TAB PO PRN (12:15)
[2020-08-02] MEDS: MILRINONE 20MG/100ML 100 ML IV SCH (16:10)
[2020-08-02] MEDS: FUROSEMIDE 20 MG TAB PO SCH (18:14)
[2020-08-02 21:15] VITALS: BP 120/70
[2020-08-03] MEDS: MILRINONE 20MG/100ML 100 ML IV SCH ×2 (04:18→20:31)
[2020-08-03 05:20] VITALS: BP 101/48
[2020-08-03] MEDS: FUROSEMIDE 20 MG TAB PO SCH ×2 (05:40→17:15)
[2020-08-03] MEDS: BUDESONIDE (INHALATION) 0.5 MG/2 ML NEB NEB SCH ×2 (06:55→22:30)
[2020-08-03 08:00] VITALS: BP 129/80
[2020-08-03] MEDS: VANCOMYCIN 1GM/250ML 250 ML IV SCH ×2 (10:23→22:57)
[2020-08-03] MEDS: ASCORBIC ACID 1,000 MG TAB PO SCH (10:24)
[2020-08-03] MEDS: CLOPIDOGREL BISULFATE 75 MG TAB PO SCH (10:24)
[2020-08-03] MEDS: TAMSULOSIN HYDROCHLORIDE 0.4 MG CAP PO SCH (10:24)
[2020-08-03] MEDS: DIGOXIN 0.125 MG TAB PO SCH (10:25)
[2020-08-03] MEDS: ZINC SULFATE 220mg CAP or TAB PO SCH (10:25)
[2020-08-03] MEDS: CARVEDILOL 3.125 MG TAB PO SCH ×2 (10:25→22:57)
[2020-08-03 12:00] VITALS: BP 100/58
[2020-08-03 16:00] VITALS: BP 112/69
[2020-08-03 22:11] VITALS: BP 118/57
[2020-08-04 03:34] VITALS: BP 100/54
[2020-08-04 05:00] VITALS: BP 121/54
[2020-08-04] MEDS: BUDESONIDE (INHALATION) 0.5 MG/2 ML NEB NEB SCH ×2 (06:42→19:19)
[2020-08-04] MEDS: FUROSEMIDE 20 MG TAB PO SCH (06:44)
[2020-08-04 07:02] LABS: Calcium 8.7 mg/dL (8.5-10.1)
[2020-08-04 07:08] LABS: BUN/Creatinine Ratio 21.6
[2020-08-04 08:19] VITALS: BP 138/76
[2020-08-04] MEDS: TAMSULOSIN HYDROCHLORIDE 0.4 MG CAP PO SCH (09:18)
[2020-08-04] MEDS: DIGOXIN 0.125 MG TAB PO SCH (09:18)
[2020-08-04] MEDS: ASCORBIC ACID 1,000 MG TAB PO SCH (09:18)
[2020-08-04] MEDS: CLOPIDOGREL BISULFATE 75 MG TAB PO SCH (09:19)
[2020-08-04] MEDS: ZINC SULFATE 220mg CAP or TAB PO SCH (09:19)
[2020-08-04] MEDS: CARVEDILOL 3.125 MG TAB PO SCH ×2 (09:19→22:00)
[2020-08-04] MEDS: VANCOMYCIN 1GM/250ML 250 ML IV SCH (10:22)
[2020-08-04] MEDS: MILRINONE 20MG/100ML 100 ML IV SCH (13:31)
[2020-08-04 13:51] VITALS: BP 97/40
[2020-08-04 16:44] VITALS: BP 120/63
[2020-08-04 22:00] VITALS: BP 114/54
[2020-08-05] MEDS: MILRINONE 20MG/100ML 100 ML IV SCH (02:57)
[2020-08-05 04:56] VITALS: BP 123/79
[2020-08-05] MEDS: BUDESONIDE (INHALATION) 0.5 MG/2 ML NEB NEB SCH (06:18)
[2020-08-05 09:00] VITALS: BP 138/68
[2020-08-05] MEDS: ASCORBIC ACID 1,000 MG TAB PO SCH (09:33)
[2020-08-05] MEDS: TAMSULOSIN HYDROCHLORIDE 0.4 MG CAP PO SCH (09:33)
[2020-08-05] MEDS: DIGOXIN 0.125 MG TAB PO SCH (09:34)
[2020-08-05] MEDS: CLOPIDOGREL BISULFATE 75 MG TAB PO SCH (09:34)
[2020-08-05] MEDS: CARVEDILOL 3.125 MG TAB PO SCH (09:34)
[2020-08-05] MEDS: ZINC SULFATE 220mg CAP or TAB PO SCH (09:34)
[2020-08-05 13:00] VITALS: BP 114/56
[2020-08-05] MEDS: ERGOCALCIFEROL 50,000 UNIT(1.25MG) CAP PO SCH (13:55)
[2020-08-05 16:31] VITALS: BP 124/63
[2020-08-05 17:00] VITALS: BP 124/63
== END 2020-08-05 19:10 | disposition home health service (06) | DRG 291 ==
LOC: ER 17:37 → EDBD 17:37 → TELE 17:38 → TELE-CENTR 07-29 15:50
PROVIDERS: ADMIT Emergency Medicine; ATTEND Internal Medicine Cardiovascular Disease
DX: I11.0 Hypertensive heart disease with heart failure (principal); J96.90 Respiratory failure, unspecified, unspecified whether with hypoxia or hypercapnia; J44.1 Chronic obstructive pulmonary disease with (acute) exacerbation; E44.0 Moderate protein-calorie malnutrition; Z68.1 Body mass index [BMI] 19.9 or less, adult; R64 Cachexia; I50.23 Acute on chronic systolic (congestive) heart failure; I25.5 Ischemic cardiomyopathy; D64.9 Anemia, unspecified; I25.10 Atherosclerotic heart disease of native coronary artery without angina pectoris; Z87.891 Personal history of nicotine dependence; I25.2 Old myocardial infarction; Z95.1 Presence of aortocoronary bypass graft; Z95.810 Presence of automatic (implantable) cardiac defibrillator; Z90.49 Acquired absence of other specified parts of digestive tract; Z79.899 Other long term (current) drug therapy; Z79.891 Long term (current) use of opiate analgesic; Z79.01 Long term (current) use of anticoagulants
CPT/HCPCS: 36415; 36600; 71045; 74022; 80048; 80053; 80162; 80202; 81001; 82728; 82805; 82962; 83605; 83735; 83880; 85007; 85025; 85027; 85379; 86141; 87040; 87077; 87186; 87426; 93005; 94640; 96365; 96366; 96372; 96375; 97110; 97116; 97163; 97530; 99291; G0378; G0463

== ENCOUNTER 2020-08-06 23:24 | Inpatient (IN) | payer MEDICARE ==
[~2020-08-06] VITALS: Ht 185.4 cm; Wt 61.2 kg
[2020-08-07 02:38] LABS: Basophils # (auto) 0 10 ^3/uL (0-0.2); Basophils % (auto) 0.3 % (0.0-2.0); Eosinophils # (auto) 0 10 ^3/uL (0-0.8); Eosinophils % (auto) 0.1 % (0.0-7.0); Hematocrit 34.3 % (41.0-53.0); Hemoglobin 11.1 g/dL (13.5-17.5); Lymphocytes # (auto) 0.2 10 ^3/uL (0.4-5.4); Lymphocytes % (auto) 1.9 % (10.0-50.0); Mean Corpuscular Hemoglobin 28.6 pg (28.0-32.0); Mean Corpuscular Hgb Conc. 32.4 g/dL (32.0-36.0); Mean Corpuscular Volume 88.2 fL (80.0-100.0); Monocytes # (auto) 0.3 10 ^3/uL (0-1.3); Neutrophils # (auto) 10.8 10 ^3/uL (1.6-8.6); Neutrophils % (auto) 94.7 % (37.0-80.0); Platelet Count (auto) 263 10^3/uL (140-450); Red Blood Cells 3.89 10^6/uL (4.5-5.90); Red Cell Distribution Width 15.1 % (11.8-14.3); White Blood Cell 11.4 10^3/uL (4.4-10.8)
[2020-08-07 03:02] LABS: Albumin 2.7 g/dL (3.4-5.0); Calcium 8.4 mg/dL (8.5-10.1); Potassium 4.1 mmol/L (3.5-5.1)
[2020-08-07 03:07] LABS: BUN/Creatinine Ratio 25.5; Bilirubin, Total 0.9 mg/dL (0.2-1.0); Total Protein 7.4 g/dL (6.4-8.2)
[2020-08-07] MEDS ORDERED: cefTRIAXone 1GM/50ML D5W 50 ML IV ONE (04:15)
[2020-08-07] MEDS ORDERED: DOXYCYCLINE 100MG/250ML 250 ML IV SCH (06:00)
[2020-08-07] MEDS ORDERED: HYDROcodone-ACET 5/325MG TAB PO PRN (06:15)
[2020-08-07] MEDS ORDERED: MORPHINE SULF INJ 2 MG/ML SYRINGE 1ML IV PRN (06:15)
[2020-08-07] MEDS ORDERED: ONDANSETRON HCL 4 MG/2 ML VIAL IV PRN (06:15)
[2020-08-07] MEDS ORDERED: ACETAMINOPHEN 325 MG TAB PO PRN (06:15)
[2020-08-07] MEDS ORDERED: DOCUSATE SOD 100 MG CAP PO PRN (06:15)
[2020-08-07] MEDS ORDERED: NITROGLYCERIN 0.4 MG SL TAB SL PRN (06:15)
[2020-08-07 07:13] LABS: Albumin 2.6 g/dL (3.4-5.0); Calcium 8.5 mg/dL (8.5-10.1); Potassium 4.2 mmol/L (3.5-5.1)
[2020-08-07 07:16] LABS: Bilirubin, Total 0.8 mg/dL (0.2-1.0); Total Protein 7.1 g/dL (6.4-8.2)
[2020-08-07 08:39] LABS: Basophils # (auto) 0 10 ^3/uL (0-0.2); Basophils % (auto) 0.2 % (0.0-2.0); Eosinophils # (auto) 0 10 ^3/uL (0-0.8); Hematocrit 34.8 % (41.0-53.0); Hemoglobin 11.4 g/dL (13.5-17.5); Lymphocytes # (auto) 0.4 10 ^3/uL (0.4-5.4); Lymphocytes % (auto) 3.4 % (10.0-50.0); Mean Corpuscular Hgb Conc. 32.7 g/dL (32.0-36.0); Mean Corpuscular Volume 88.7 fL (80.0-100.0); Monocytes # (auto) 0.4 10 ^3/uL (0-1.3); Monocytes % (auto) 3.2 % (0.0-12.0); Neutrophils # (auto) 10.5 10 ^3/uL (1.6-8.6); Neutrophils % (auto) 93.2 % (37.0-80.0); Platelet Count (auto) 276 10^3/uL (140-450); Red Blood Cells 3.92 10^6/uL (4.5-5.90); Red Cell Distribution Width 15.8 % (11.8-14.3); White Blood Cell 11.2 10^3/uL (4.4-10.8)
[2020-08-07] MEDS ORDERED: ENOXAPARIN SOD 40 MG/0.4 ML SYRINGE SC SCH (10:00)
[2020-08-07] MEDS ORDERED: ALBUTEROL SULF HFA 90MCG INH 200DOSE IN SCH (10:00)
[2020-08-07] MEDS: MULTIPLE VITAMIN TAB PO SCH (11:10)
[2020-08-07] MEDS: ZINC SULFATE 220mg CAP or TAB PO SCH (11:10)
[2020-08-07] MEDS: ASPirin 81 mg TAB PO SCH (11:10)
[2020-08-07] MEDS: FAMOTIDINE 20 MG TAB PO SCH ×2 (11:10→22:07)
[2020-08-07] MEDS: ASCORBIC ACID 500 MG TAB PO SCH ×2 (11:10→22:08)
[2020-08-07 11:30] VITALS: BP 116/53
[2020-08-07] MEDS ORDERED: CARV6.2551 PO (11:51)
[2020-08-07] MEDS ORDERED: SACU1TAB PO (12:01)
[2020-08-07] MEDS: SODIUM CHLOR 0.9% PF (SALINE LOCK) 10ML VIAL/SYR IV SCH ×2 (14:06→21:41)
[2020-08-07] MEDS ORDERED: PIPERACILLIN-TAZOB 3.375GM 100 ML IV ONE (14:45)
[2020-08-07] MEDS ORDERED: FUROSEMIDE 20 MG TAB PO ONE (15:15)
[2020-08-07] MEDS ORDERED: CLOPIDOGREL BISULFATE 75 MG TAB PO ONE (15:15)
[2020-08-07] MEDS: TAMSULOSIN HYDROCHLORIDE 0.4 MG CAP PO SCH (16:20)
[2020-08-07] MEDS ORDERED: WARFARIN SODIUM 5 MG TAB PO SCH (17:00)
[2020-08-07 17:33] VITALS: BP 112/65
[2020-08-07] MEDS: FUROSEMIDE 20 MG TAB PO SCH (18:10)
[2020-08-07] MEDS: ALBUTEROL SULF 2.5 MG/0.5ML(0.5%) NEB SOLN NEB SCH (18:51)
[2020-08-07 20:01] LABS: INR 1.22 (0.9-1.15); Partial Thromboplastin Time 38.8 sec (23.0-31.2)
[2020-08-07 22:00] VITALS: BP 109/55
[2020-08-07] MEDS ORDERED: SACUBITRIL-VALSARTAN 24mg/26mg TAB PO SCH (22:00)
[2020-08-07] MEDS ORDERED: CARVEDILOL 3.125 MG TAB PO SCH (22:00)
[2020-08-07] MEDS: PIPERACILLIN-TAZOB 3.375GM 100 ML IV SCH (22:06)
[2020-08-07] MEDS: SACUBITRIL-VALSARTAN 24mg/26mg TAB PO SCH (22:07)
[2020-08-07] MEDS: CARVEDILOL 3.125 MG TAB PO SCH (22:07)
[2020-08-07] MEDS ORDERED: WARFARIN SODIUM 5 MG TAB PO ONE (22:30)
[2020-08-08 05:02] VITALS: BP 114/59
[2020-08-08] MEDS: SODIUM CHLOR 0.9% PF (SALINE LOCK) 10ML VIAL/SYR IV SCH ×3 (06:16→21:51)
[2020-08-08] MEDS: PIPERACILLIN-TAZOB 3.375GM 100 ML IV SCH ×3 (06:41→21:41)
[2020-08-08] MEDS: ALBUTEROL SULF 2.5 MG/0.5ML(0.5%) NEB SOLN NEB SCH ×2 (06:42→18:14)
[2020-08-08] MEDS: FUROSEMIDE 20 MG TAB PO SCH ×2 (06:42→18:12)
[2020-08-08 07:03] LABS: Basophils # (auto) 0.1 10 ^3/uL (0-0.2); Basophils % (auto) 0.8 % (0.0-2.0); Eosinophils # (auto) 0.1 10 ^3/uL (0-0.8); Eosinophils % (auto) 1.7 % (0.0-7.0); Hematocrit 30.5 % (41.0-53.0); Lymphocytes # (auto) 0.5 10 ^3/uL (0.4-5.4); Lymphocytes % (auto) 8.2 % (10.0-50.0); Mean Corpuscular Hemoglobin 29.2 pg (28.0-32.0); Mean Corpuscular Hgb Conc. 32.9 g/dL (32.0-36.0); Mean Corpuscular Volume 88.7 fL (80.0-100.0); Monocytes # (auto) 0.4 10 ^3/uL (0-1.3); Monocytes % (auto) 6.3 % (0.0-12.0); Neutrophils # (auto) 5.2 10 ^3/uL (1.6-8.6); Platelet Count (auto) 228 10^3/uL (140-450); Red Blood Cells 3.44 10^6/uL (4.5-5.90); Red Cell Distribution Width 15.3 % (11.8-14.3); White Blood Cell 6.3 10^3/uL (4.4-10.8)
[2020-08-08 07:16] LABS: INR 1.21 (0.9-1.15)
[2020-08-08 07:22] LABS: Albumin 2.3 g/dL (3.4-5.0); BUN/Creatinine Ratio 30.1; Calcium 8.6 mg/dL (8.5-10.1); Potassium 4.3 mmol/L (3.5-5.1)
[2020-08-08 07:24] LABS: Bilirubin, Total 0.6 mg/dL (0.2-1.0); Total Protein 6.5 g/dL (6.4-8.2)
[2020-08-08 08:00] VITALS: BP 98/54
[2020-08-08 09:00] VITALS: BP 98/54
[2020-08-08] MEDS: CARVEDILOL 3.125 MG TAB PO SCH ×2 (10:00→21:49)
[2020-08-08] MEDS ORDERED: FUROSEMIDE 20 MG TAB PO SCH (10:00)
[2020-08-08] MEDS: ASPirin 81 mg TAB PO SCH (10:19)
[2020-08-08] MEDS: CLOPIDOGREL BISULFATE 75 MG TAB PO SCH (10:20)
[2020-08-08] MEDS: TAMSULOSIN HYDROCHLORIDE 0.4 MG CAP PO SCH (10:20)
[2020-08-08] MEDS: ZINC SULFATE 220mg CAP or TAB PO SCH (10:20)
[2020-08-08] MEDS: FAMOTIDINE 20 MG TAB PO SCH ×2 (10:20→21:52)
[2020-08-08] MEDS: MULTIPLE VITAMIN TAB PO SCH (10:20)
[2020-08-08] MEDS: SACUBITRIL-VALSARTAN 24mg/26mg TAB PO SCH ×2 (10:25→21:41)
[2020-08-08] MEDS: ASCORBIC ACID 500 MG TAB PO SCH ×2 (10:28→21:41)
[2020-08-08] MEDS ORDERED: VANCOMYCIN PER PHARMACY 0 MG IV SCH (12:30)
[2020-08-08 13:00] VITALS: BP 103/59
[2020-08-08] MEDS ORDERED: VANCOMYCIN 1GM/250ML 250 ML IV ONE (13:00)
[2020-08-08 17:00] VITALS: BP 108/61
[2020-08-08] MEDS ORDERED: WARFARIN SODIUM 5 MG TAB PO ONE (17:00)
[2020-08-08] MEDS: Glucerna Carbsteady SHAKE Vanilla 8oz PO SCH (18:12)
[2020-08-08 22:00] VITALS: BP 122/66
[2020-08-09 05:00] VITALS: BP 96/50
[2020-08-09] MEDS: VANCOMYCIN 750mg/250ml 250 ML IV SCH ×2 (05:29→18:25)
[2020-08-09] MEDS: FUROSEMIDE 20 MG TAB PO SCH ×2 (05:34→18:32)
[2020-08-09] MEDS: SODIUM CHLOR 0.9% PF (SALINE LOCK) 10ML VIAL/SYR IV SCH ×3 (05:36→22:00)
[2020-08-09] MEDS: PIPERACILLIN-TAZOB 3.375GM 100 ML IV SCH ×3 (06:48→23:34)
[2020-08-09 06:54] LABS: Basophils # (auto) 0.1 10 ^3/uL (0-0.2); Basophils % (auto) 0.6 % (0.0-2.0); Eosinophils # (auto) 0.2 10 ^3/uL (0-0.8); Eosinophils % (auto) 2.2 % (0.0-7.0); Hematocrit 30.6 % (41.0-53.0); Hemoglobin 10.1 g/dL (13.5-17.5); Lymphocytes # (auto) 0.4 10 ^3/uL (0.4-5.4); Lymphocytes % (auto) 4.4 % (10.0-50.0); Mean Corpuscular Hemoglobin 29.2 pg (28.0-32.0); Mean Corpuscular Volume 88.3 fL (80.0-100.0); Monocytes # (auto) 0.4 10 ^3/uL (0-1.3); Monocytes % (auto) 4.4 % (0.0-12.0); Neutrophils % (auto) 88.4 % (37.0-80.0); Platelet Count (auto) 255 10^3/uL (140-450); Red Blood Cells 3.47 10^6/uL (4.5-5.90); Red Cell Distribution Width 15.3 % (11.8-14.3)
[2020-08-09 06:57] LABS: INR 1.17 (0.9-1.15); Partial Thromboplastin Time 35.4 sec (23.0-31.2)
[2020-08-09 08:18] LABS: BUN/Creatinine Ratio 33.6; Calcium 8.8 mg/dL (8.5-10.1); Potassium 4.6 mmol/L (3.5-5.1)
[2020-08-09 09:00] VITALS: BP 98/57
[2020-08-09] MEDS: ASCORBIC ACID 500 MG TAB PO SCH ×2 (09:30→22:00)
[2020-08-09] MEDS: ASPirin 81 mg TAB PO SCH (09:30)
[2020-08-09] MEDS: TAMSULOSIN HYDROCHLORIDE 0.4 MG CAP PO SCH (09:30)
[2020-08-09] MEDS: ZINC SULFATE 220mg CAP or TAB PO SCH (09:30)
[2020-08-09] MEDS: FAMOTIDINE 20 MG TAB PO SCH ×2 (09:31→23:35)
[2020-08-09] MEDS: CLOPIDOGREL BISULFATE 75 MG TAB PO SCH (09:31)
[2020-08-09] MEDS: MULTIPLE VITAMIN TAB PO SCH (09:31)
[2020-08-09] MEDS: CARVEDILOL 3.125 MG TAB PO SCH ×2 (09:34→23:35)
[2020-08-09] MEDS: ALBUTEROL SULF 2.5 MG/0.5ML(0.5%) NEB SOLN NEB SCH ×2 (09:34→18:59)
[2020-08-09] MEDS: Glucerna Carbsteady SHAKE Vanilla 8oz PO SCH ×3 (09:35→18:25)
[2020-08-09] MEDS: SACUBITRIL-VALSARTAN 24mg/26mg TAB PO SCH ×2 (11:47→23:35)
[2020-08-09 13:00] VITALS: BP 100/49
[2020-08-09] MEDS ORDERED: WARFARIN SODIUM 2.5 MG TAB PO ONE (17:00)
[2020-08-09 18:00] VITALS: BP 106/58
[2020-08-09 22:00] VITALS: BP 145/73
[2020-08-10] VITALS (8 sets, daily range): BP systolic 113–159; BP diastolic 63–73
[2020-08-10] MEDS: VANCOMYCIN 750mg/250ml 250 ML IV SCH (05:17)
[2020-08-10] MEDS: SODIUM CHLOR 0.9% PF (SALINE LOCK) 10ML VIAL/SYR IV SCH ×2 (05:18→13:54)
[2020-08-10 06:13] LABS: Basophils # (auto) 0.1 10 ^3/uL (0-0.2); Eosinophils # (auto) 0.2 10 ^3/uL (0-0.8); Eosinophils % (auto) 2.1 % (0.0-7.0); Hematocrit 28.6 % (41.0-53.0); Hemoglobin 9.6 g/dL (13.5-17.5); Lymphocytes # (auto) 0.3 10 ^3/uL (0.4-5.4); Lymphocytes % (auto) 4.4 % (10.0-50.0); Mean Corpuscular Hemoglobin 29.4 pg (28.0-32.0); Mean Corpuscular Hgb Conc. 33.4 g/dL (32.0-36.0); Monocytes # (auto) 0.3 10 ^3/uL (0-1.3); Monocytes % (auto) 4.3 % (0.0-12.0); Neutrophils # (auto) 6.9 10 ^3/uL (1.6-8.6); Neutrophils % (auto) 88.2 % (37.0-80.0); Platelet Count (auto) 244 10^3/uL (140-450); Red Blood Cells 3.25 10^6/uL (4.5-5.90); Red Cell Distribution Width 14.9 % (11.8-14.3); White Blood Cell 7.8 10^3/uL (4.4-10.8)
[2020-08-10] MEDS: ALBUTEROL SULF 2.5 MG/0.5ML(0.5%) NEB SOLN NEB SCH ×2 (06:21→22:22)
[2020-08-10 06:23] LABS: INR 1.22 (0.9-1.15); Partial Thromboplastin Time 38.3 sec (23.0-31.2)
[2020-08-10] MEDS: PIPERACILLIN-TAZOB 3.375GM 100 ML IV SCH ×3 (06:45→22:36)
[2020-08-10] MEDS: FUROSEMIDE 20 MG TAB PO SCH ×2 (06:46→17:50)
[2020-08-10 06:58] LABS: BUN/Creatinine Ratio 27.9; Calcium 8.1 mg/dL (8.5-10.1); Potassium 4.6 mmol/L (3.5-5.1)
[2020-08-10] MEDS: Glucerna Carbsteady SHAKE Vanilla 8oz PO SCH ×3 (08:26→18:30)
[2020-08-10] MEDS: CARVEDILOL 3.125 MG TAB PO SCH ×2 (09:27→22:35)
[2020-08-10] MEDS: FAMOTIDINE 20 MG TAB PO SCH ×2 (09:27→22:36)
[2020-08-10] MEDS: ZINC SULFATE 220mg CAP or TAB PO SCH (09:27)
[2020-08-10] MEDS: TAMSULOSIN HYDROCHLORIDE 0.4 MG CAP PO SCH (09:28)
[2020-08-10] MEDS: MULTIPLE VITAMIN TAB PO SCH (09:28)
[2020-08-10] MEDS: SACUBITRIL-VALSARTAN 24mg/26mg TAB PO SCH ×2 (09:28→22:34)
[2020-08-10] MEDS: ASPirin 81 mg TAB PO SCH (09:28)
[2020-08-10] MEDS: CLOPIDOGREL BISULFATE 75 MG TAB PO SCH (09:28)
[2020-08-10] MEDS: ASCORBIC ACID 500 MG TAB PO SCH ×2 (12:53→22:34)
[2020-08-10] MEDS ORDERED: WARFARIN SODIUM 2 MG TAB PO ONE (17:00)
[2020-08-11] VITALS (7 sets, daily range): BP systolic 93–144; BP diastolic 58–80
[2020-08-11] MEDS: SODIUM CHLOR 0.9% PF (SALINE LOCK) 10ML VIAL/SYR IV SCH ×4 (00:56→22:00)
[2020-08-11] MEDS: PIPERACILLIN-TAZOB 3.375GM 100 ML IV SCH ×3 (05:56→21:07)
[2020-08-11] MEDS: FUROSEMIDE 20 MG TAB PO SCH ×2 (06:00→18:02)
[2020-08-11 06:50] LABS: Basophils # (auto) 0.1 10 ^3/uL (0-0.2); Eosinophils # (auto) 0.2 10 ^3/uL (0-0.8); Eosinophils % (auto) 3.2 % (0.0-7.0); Hematocrit 28.3 % (41.0-53.0); Hemoglobin 9.5 g/dL (13.5-17.5); INR 1.29 (0.9-1.15); Lymphocytes # (auto) 0.4 10 ^3/uL (0.4-5.4); Lymphocytes % (auto) 7.2 % (10.0-50.0); Mean Corpuscular Hemoglobin 29.6 pg (28.0-32.0); Mean Corpuscular Hgb Conc. 33.6 g/dL (32.0-36.0); Mean Corpuscular Volume 88.1 fL (80.0-100.0); Monocytes # (auto) 0.4 10 ^3/uL (0-1.3); Monocytes % (auto) 6.6 % (0.0-12.0); Neutrophils # (auto) 4.4 10 ^3/uL (1.6-8.6); Nucleated Red Blood Cells % 0.1 %; Platelet Count (auto) 239 10^3/uL (140-450); Red Blood Cells 3.21 10^6/uL (4.5-5.90); Red Cell Distribution Width 15.1 % (11.8-14.3); White Blood Cell 5.4 10^3/uL (4.4-10.8)
[2020-08-11 06:53] LABS: Potassium 4.8 mmol/L (3.5-5.1)
[2020-08-11 06:58] LABS: Albumin 2.4 g/dL (3.4-5.0); BUN/Creatinine Ratio 25.4; Bilirubin, Total 0.6 mg/dL (0.2-1.0); Calcium 8.8 mg/dL (8.5-10.1); Total Protein 6.9 g/dL (6.4-8.2)
[2020-08-11] MEDS: Glucerna Carbsteady SHAKE Vanilla 8oz PO SCH ×3 (08:28→18:12)
[2020-08-11] MEDS: ZINC SULFATE 220mg CAP or TAB PO SCH (09:22)
[2020-08-11] MEDS: SACUBITRIL-VALSARTAN 24mg/26mg TAB PO SCH ×2 (09:22→21:07)
[2020-08-11] MEDS: TAMSULOSIN HYDROCHLORIDE 0.4 MG CAP PO SCH (09:22)
[2020-08-11] MEDS: CLOPIDOGREL BISULFATE 75 MG TAB PO SCH (09:22)
[2020-08-11] MEDS: ALBUTEROL SULF 2.5 MG/0.5ML(0.5%) NEB SOLN NEB SCH ×2 (09:23→20:23)
[2020-08-11] MEDS: ASCORBIC ACID 500 MG TAB PO SCH ×2 (09:23→21:07)
[2020-08-11] MEDS: FAMOTIDINE 20 MG TAB PO SCH ×2 (09:24→21:07)
[2020-08-11] MEDS: MULTIPLE VITAMIN TAB PO SCH (09:25)
[2020-08-11] MEDS: CARVEDILOL 3.125 MG TAB PO SCH ×2 (09:25→21:12)
[2020-08-11] MEDS: ASPirin 81 mg TAB PO SCH (09:25)
[2020-08-11] MEDS ORDERED: WARFARIN SODIUM 2 MG TAB PO ONE (17:00)
[2020-08-11] MEDS: VANCOMYCIN 500 MG in D5W 5% 100 ML IV SCH (18:03)
[2020-08-12 05:00] VITALS: BP 137/71
[2020-08-12] MEDS: PIPERACILLIN-TAZOB 3.375GM 100 ML IV SCH ×3 (05:26→21:32)
[2020-08-12] MEDS: SODIUM CHLOR 0.9% PF (SALINE LOCK) 10ML VIAL/SYR IV SCH ×3 (05:26→21:33)
[2020-08-12] MEDS: FUROSEMIDE 20 MG TAB PO SCH ×2 (05:27→17:42)
[2020-08-12 06:01] LABS: Basophils # (auto) 0.1 10 ^3/uL (0-0.2); Basophils % (auto) 1.2 % (0.0-2.0); Eosinophils # (auto) 0.2 10 ^3/uL (0-0.8); Eosinophils % (auto) 2.7 % (0.0-7.0); Hematocrit 28.7 % (41.0-53.0); Hemoglobin 9.7 g/dL (13.5-17.5); Lymphocytes # (auto) 0.4 10 ^3/uL (0.4-5.4); Lymphocytes % (auto) 5.8 % (10.0-50.0); Mean Corpuscular Hemoglobin 29.5 pg (28.0-32.0); Mean Corpuscular Hgb Conc. 33.7 g/dL (32.0-36.0); Mean Corpuscular Volume 87.6 fL (80.0-100.0); Monocytes # (auto) 0.4 10 ^3/uL (0-1.3); Monocytes % (auto) 5.3 % (0.0-12.0); Neutrophils # (auto) 5.7 10 ^3/uL (1.6-8.6); Platelet Count (auto) 270 10^3/uL (140-450); Red Blood Cells 3.27 10^6/uL (4.5-5.90); Red Cell Distribution Width 15.1 % (11.8-14.3); White Blood Cell 6.8 10^3/uL (4.4-10.8)
[2020-08-12 06:18] LABS: Albumin 2.3 g/dL (3.4-5.0); BUN/Creatinine Ratio 21.4; Calcium 8.5 mg/dL (8.5-10.1); Potassium 4.8 mmol/L (3.5-5.1)
[2020-08-12 06:21] LABS: Bilirubin, Total 0.5 mg/dL (0.2-1.0); Total Protein 6.8 g/dL (6.4-8.2)
[2020-08-12] MEDS: ALBUTEROL SULF 2.5 MG/0.5ML(0.5%) NEB SOLN NEB SCH ×2 (06:22→22:20)
[2020-08-12 06:40] LABS: INR 1.46 (0.9-1.15); Partial Thromboplastin Time 38.7 sec (23.0-31.2)
[2020-08-12 08:00] VITALS: BP 140/71
[2020-08-12] MEDS: Glucerna Carbsteady SHAKE Vanilla 8oz PO SCH ×3 (08:03→18:21)
[2020-08-12 09:00] VITALS: BP 140/71
[2020-08-12] MEDS: ZINC SULFATE 220mg CAP or TAB PO SCH (10:09)
[2020-08-12] MEDS: CLOPIDOGREL BISULFATE 75 MG TAB PO SCH (10:09)
[2020-08-12] MEDS: TAMSULOSIN HYDROCHLORIDE 0.4 MG CAP PO SCH (10:09)
[2020-08-12] MEDS: SACUBITRIL-VALSARTAN 24mg/26mg TAB PO SCH ×2 (10:09→21:32)
[2020-08-12] MEDS: ASPirin 81 mg TAB PO SCH (10:09)
[2020-08-12] MEDS: FAMOTIDINE 20 MG TAB PO SCH ×2 (10:10→21:32)
[2020-08-12] MEDS: MULTIPLE VITAMIN TAB PO SCH (10:10)
[2020-08-12] MEDS: ASCORBIC ACID 500 MG TAB PO SCH ×2 (10:10→21:32)
[2020-08-12] MEDS: CARVEDILOL 3.125 MG TAB PO SCH ×2 (10:10→21:33)
[2020-08-12 13:00] VITALS: BP 117/67
[2020-08-12 16:48] VITALS: BP 116/69
[2020-08-12] MEDS ORDERED: WARFARIN SODIUM 2 MG TAB PO ONE (17:00)
[2020-08-12 22:00] VITALS: BP 119/65
[2020-08-13] VITALS (7 sets, daily range): BP systolic 110–133; BP diastolic 65–80
[2020-08-13 03:40] LABS: Basophils # (auto) 0.1 10 ^3/uL (0-0.2); Basophils % (auto) 1.4 % (0.0-2.0); Eosinophils # (auto) 0.3 10 ^3/uL (0-0.8); Eosinophils % (auto) 4.5 % (0.0-7.0); Hematocrit 27.7 % (41.0-53.0); Lymphocytes # (auto) 0.3 10 ^3/uL (0.4-5.4); Lymphocytes % (auto) 5.7 % (10.0-50.0); Mean Corpuscular Hemoglobin 28.8 pg (28.0-32.0); Mean Corpuscular Hgb Conc. 32.5 g/dL (32.0-36.0); Mean Corpuscular Volume 88.6 fL (80.0-100.0); Monocytes # (auto) 0.5 10 ^3/uL (0-1.3); Monocytes % (auto) 8.6 % (0.0-12.0); Neutrophils # (auto) 4.5 10 ^3/uL (1.6-8.6); Neutrophils % (auto) 79.8 % (37.0-80.0); Platelet Count (auto) 242 10^3/uL (140-450); Red Blood Cells 3.12 10^6/uL (4.5-5.90); Red Cell Distribution Width 15.4 % (11.8-14.3); White Blood Cell 5.7 10^3/uL (4.4-10.8)
[2020-08-13 04:00] LABS: INR 1.72 (0.9-1.15)
[2020-08-13] MEDS: VANCOMYCIN 500 MG in D5W 5% 100 ML IV SCH (04:22)
[2020-08-13] MEDS: PIPERACILLIN-TAZOB 3.375GM 100 ML IV SCH ×2 (05:21→14:27)
[2020-08-13] MEDS: FUROSEMIDE 20 MG TAB PO SCH ×2 (05:22→17:11)
[2020-08-13] MEDS: SODIUM CHLOR 0.9% PF (SALINE LOCK) 10ML VIAL/SYR IV SCH ×3 (05:23→23:01)
[2020-08-13] MEDS: ALBUTEROL SULF 2.5 MG/0.5ML(0.5%) NEB SOLN NEB SCH ×2 (06:45→22:50)
[2020-08-13] MEDS: FAMOTIDINE 20 MG TAB PO SCH ×2 (09:12→23:04)
[2020-08-13] MEDS: CLOPIDOGREL BISULFATE 75 MG TAB PO SCH (09:12)
[2020-08-13] MEDS: CARVEDILOL 3.125 MG TAB PO SCH ×2 (09:13→23:03)
[2020-08-13] MEDS: TAMSULOSIN HYDROCHLORIDE 0.4 MG CAP PO SCH (09:13)
[2020-08-13] MEDS: MULTIPLE VITAMIN TAB PO SCH (09:13)
[2020-08-13] MEDS: SACUBITRIL-VALSARTAN 24mg/26mg TAB PO SCH ×2 (09:13→23:03)
[2020-08-13] MEDS: ASCORBIC ACID 500 MG TAB PO SCH ×2 (09:14→23:04)
[2020-08-13] MEDS: ZINC SULFATE 220mg CAP or TAB PO SCH (09:14)
[2020-08-13] MEDS: ASPirin 81 mg TAB PO SCH (09:14)
[2020-08-13] MEDS: Glucerna Carbsteady SHAKE Vanilla 8oz PO SCH ×3 (09:17→18:08)
[2020-08-13] MEDS ORDERED: WARFARIN SODIUM 2 MG TAB PO ONE (17:00)
[2020-08-13] MEDS ORDERED: levoFLOXacin 500MG 100 ML IV ONE (17:00)
[2020-08-13] MEDS: SALINE 0.65 % NASAL SPRAY 45ML BOTTLE EACHNOSTRI SCH ×2 (18:00→22:00)
[2020-08-14 05:00] VITALS: BP 118/66
[2020-08-14] MEDS: SALINE 0.65 % NASAL SPRAY 45ML BOTTLE EACHNOSTRI SCH ×4 (05:59→23:48)
[2020-08-14] MEDS: SODIUM CHLOR 0.9% PF (SALINE LOCK) 10ML VIAL/SYR IV SCH ×3 (06:34→23:48)
[2020-08-14] MEDS: FUROSEMIDE 20 MG TAB PO SCH ×2 (06:37→18:14)
[2020-08-14 06:49] LABS: Basophils # (auto) 0.1 10 ^3/uL (0-0.2); Basophils % (auto) 1.3 % (0.0-2.0); Eosinophils # (auto) 0.2 10 ^3/uL (0-0.8); Hematocrit 28.3 % (41.0-53.0); Hemoglobin 9.2 g/dL (13.5-17.5); Lymphocytes # (auto) 0.3 10 ^3/uL (0.4-5.4); Lymphocytes % (auto) 4.2 % (10.0-50.0); Mean Corpuscular Hemoglobin 28.9 pg (28.0-32.0); Mean Corpuscular Hgb Conc. 32.7 g/dL (32.0-36.0); Mean Corpuscular Volume 88.4 fL (80.0-100.0); Monocytes # (auto) 0.3 10 ^3/uL (0-1.3); Monocytes % (auto) 5.1 % (0.0-12.0); Neutrophils # (auto) 5.9 10 ^3/uL (1.6-8.6); Neutrophils % (auto) 86.4 % (37.0-80.0); Platelet Count (auto) 252 10^3/uL (140-450); Red Cell Distribution Width 15.4 % (11.8-14.3); White Blood Cell 6.8 10^3/uL (4.4-10.8)
[2020-08-14] MEDS: ALBUTEROL SULF 2.5 MG/0.5ML(0.5%) NEB SOLN NEB SCH ×2 (06:55→23:12)
[2020-08-14 07:12] LABS: INR 1.78 (0.9-1.15)
[2020-08-14 09:00] VITALS: BP 138/72
[2020-08-14] MEDS: MULTIPLE VITAMIN TAB PO SCH (10:19)
[2020-08-14] MEDS: ZINC SULFATE 220mg CAP or TAB PO SCH (10:19)
[2020-08-14] MEDS: levoFLOXacin 500MG 100 ML IV SCH (10:19)
[2020-08-14] MEDS: Glucerna Carbsteady SHAKE Vanilla 8oz PO SCH ×3 (10:19→18:11)
[2020-08-14] MEDS: TAMSULOSIN HYDROCHLORIDE 0.4 MG CAP PO SCH (10:19)
[2020-08-14] MEDS: ASPirin 81 mg TAB PO SCH (10:19)
[2020-08-14] MEDS: ASCORBIC ACID 500 MG TAB PO SCH ×2 (10:20→23:50)
[2020-08-14] MEDS: CLOPIDOGREL BISULFATE 75 MG TAB PO SCH (10:20)
[2020-08-14] MEDS: FAMOTIDINE 20 MG TAB PO SCH ×2 (10:20→23:50)
[2020-08-14] MEDS: SACUBITRIL-VALSARTAN 24mg/26mg TAB PO SCH ×2 (10:22→23:49)
[2020-08-14] MEDS: CARVEDILOL 3.125 MG TAB PO SCH ×2 (10:22→23:49)
[2020-08-14] MEDS ORDERED: VANCOMYCIN 500 MG in D5W 5% 100 ML IV SCH (11:00)
[2020-08-14 13:00] VITALS: BP 110/55
[2020-08-14] MEDS ORDERED: WARFARIN SODIUM 2 MG TAB PO ONE (17:00)
[2020-08-14 17:02] VITALS: BP 112/52
[2020-08-14 22:00] VITALS: BP 122/69
[2020-08-15 05:00] VITALS: BP 155/78
[2020-08-15] MEDS: ALBUTEROL SULF 2.5 MG/0.5ML(0.5%) NEB SOLN NEB SCH (06:44)
[2020-08-15] MEDS: FUROSEMIDE 20 MG TAB PO SCH ×2 (06:45→17:33)
[2020-08-15] MEDS: SALINE 0.65 % NASAL SPRAY 45ML BOTTLE EACHNOSTRI SCH ×3 (06:45→17:32)
[2020-08-15] MEDS: SODIUM CHLOR 0.9% PF (SALINE LOCK) 10ML VIAL/SYR IV SCH ×2 (06:45→16:00)
[2020-08-15 07:45] LABS: Basophils # (auto) 0.1 10 ^3/uL (0-0.2); Basophils % (auto) 2.1 % (0.0-2.0); Eosinophils # (auto) 0.2 10 ^3/uL (0-0.8); Eosinophils % (auto) 3.1 % (0.0-7.0); Hematocrit 27.2 % (41.0-53.0); Hemoglobin 8.9 g/dL (13.5-17.5); Lymphocytes # (auto) 0.3 10 ^3/uL (0.4-5.4); Lymphocytes % (auto) 6.4 % (10.0-50.0); Mean Corpuscular Hgb Conc. 32.9 g/dL (32.0-36.0); Mean Corpuscular Volume 88.2 fL (80.0-100.0); Monocytes # (auto) 0.3 10 ^3/uL (0-1.3); Monocytes % (auto) 6.6 % (0.0-12.0); Neutrophils # (auto) 4.1 10 ^3/uL (1.6-8.6); Neutrophils % (auto) 81.8 % (37.0-80.0); Platelet Count (auto) 241 10^3/uL (140-450); Red Blood Cells 3.08 10^6/uL (4.5-5.90); Red Cell Distribution Width 15.5 % (11.8-14.3); White Blood Cell 5.1 10^3/uL (4.4-10.8)
[2020-08-15 08:00] VITALS: BP 102/63
[2020-08-15 08:01] LABS: Albumin 2.4 g/dL (3.4-5.0); BUN/Creatinine Ratio 23.5; Calcium 8.6 mg/dL (8.5-10.1); Potassium 4.5 mmol/L (3.5-5.1)
[2020-08-15 08:04] LABS: Bilirubin, Total 0.5 mg/dL (0.2-1.0); INR 2.04 (0.9-1.15); Partial Thromboplastin Time 46.2 sec (23.0-31.2); Total Protein 6.8 g/dL (6.4-8.2)
[2020-08-15 09:14] VITALS: BP 102/63
[2020-08-15] MEDS: Glucerna Carbsteady SHAKE Vanilla 8oz PO SCH ×3 (09:21→18:30)
[2020-08-15] MEDS: FAMOTIDINE 20 MG TAB PO SCH (10:00)
[2020-08-15] MEDS: ZINC SULFATE 220mg CAP or TAB PO SCH (10:35)
[2020-08-15] MEDS: ASPirin 81 mg TAB PO SCH (10:35)
[2020-08-15] MEDS: levoFLOXacin 500MG 100 ML IV SCH (10:35)
[2020-08-15] MEDS: CARVEDILOL 3.125 MG TAB PO SCH (10:35)
[2020-08-15] MEDS: CLOPIDOGREL BISULFATE 75 MG TAB PO SCH (10:36)
[2020-08-15] MEDS: SACUBITRIL-VALSARTAN 24mg/26mg TAB PO SCH (10:36)
[2020-08-15] MEDS: MULTIPLE VITAMIN TAB PO SCH (10:36)
[2020-08-15] MEDS: TAMSULOSIN HYDROCHLORIDE 0.4 MG CAP PO SCH (10:36)
[2020-08-15] MEDS: ASCORBIC ACID 500 MG TAB PO SCH (10:36)
[2020-08-15 13:11] VITALS: BP 124/74
[2020-08-15 13:13] VITALS: BP 140/69
[2020-08-15] MEDS ORDERED: WARFARIN SODIUM 2.5 MG TAB PO ONE (17:00)
== END 2020-08-15 18:48 | disposition home or self-care (01) | DRG 177 ==
LOC: ER 23:24 → EDBD 23:24 → TELE 23:25 → TELE-CENTR 08-07 17:19
PROVIDERS: ADMIT Nurse Practitioner Family; ATTEND Internal Medicine
DX: J69.0 Pneumonitis due to inhalation of food and vomit (principal); J96.21 Acute and chronic respiratory failure with hypoxia; N17.0 Acute kidney failure with tubular necrosis; I50.23 Acute on chronic systolic (congestive) heart failure; E87.1 Hypo-osmolality and hyponatremia; E44.0 Moderate protein-calorie malnutrition; D68.59 Other primary thrombophilia; I13.0 Hypertensive heart and chronic kidney disease with heart failure and stage 1 through stage 4 chronic kidney disease, or unspecified chronic kidney disease; Z68.1 Body mass index [BMI] 19.9 or less, adult; Z20.822 Contact with and (suspected) exposure to COVID-19; D64.9 Anemia, unspecified; I25.10 Atherosclerotic heart disease of native coronary artery without angina pectoris; I25.2 Old myocardial infarction; I25.5 Ischemic cardiomyopathy; I48.91 Unspecified atrial fibrillation; J43.9 Emphysema, unspecified; N18.9 Chronic kidney disease, unspecified; Z87.01 Personal history of pneumonia (recurrent); Z87.891 Personal history of nicotine dependence; Z95.1 Presence of aortocoronary bypass graft; Z95.810 Presence of automatic (implantable) cardiac defibrillator; Z90.49 Acquired absence of other specified parts of digestive tract; Z79.899 Other long term (current) drug therapy
CPT/HCPCS: 36415; 36600; 71045; 80048; 80053; 80162; 80202; 82565; 82805; 83036; 83605; 83880; 84443; 84484; 85025; 85610; 85730; 87040; 87070; 87081; 87205; 87426; 93005; 94640; 96365; 96367; 96372; G0378; J0696; J1956; J2543; J3490; J7060

== ENCOUNTER → 2020-09-02 | Outpatient (CLI) | payer MEDICARE ==
[~2020-09-02] VITALS: Ht 30.5 cm; Wt 63.5 kg
[~2020-09-02] MED LIST changes: -ALBUAER3 IN; -CAR3125T PO; +CARV6.2551 PO; +CYANOCOBALAMIN (B-12) 1000 MCG/1 ML VIAL IM ONE; +CYANOCOBALAMIN (B-12) 1000 MCG/1 ML VIAL ONE; -DIGO0.12 PO; +FUROSEMIDE 40 MG/4 ML VIAL IV ONE; +FUROSEMIDE 40 MG/4 ML VIAL ONE; +POTASSIUM CHL 10 Meq TABLET PO ONE; +SACU1TAB PO; -TAMS0.4C36 PO
[2020-09-02 10:29] VITALS: BP 172/98
[2020-09-02 12:01] LABS: Basophils # (auto) 0.1 10 ^3/uL (0-0.2); Basophils % (auto) 1.2 % (0.0-2.0); Eosinophils # (auto) 0.1 10 ^3/uL (0-0.8); Eosinophils % (auto) 1.6 % (0.0-7.0); Hemoglobin 9.4 g/dL (13.5-17.5); Lymphocytes # (auto) 0.4 10 ^3/uL (0.4-5.4); Mean Corpuscular Hemoglobin 29.8 pg (28.0-32.0); Mean Corpuscular Hgb Conc. 33.5 g/dL (32.0-36.0); Monocytes # (auto) 0.4 10 ^3/uL (0-1.3); Monocytes % (auto) 6.7 % (0.0-12.0); Neutrophils # (auto) 4.6 10 ^3/uL (1.6-8.6); Neutrophils % (auto) 82.5 % (37.0-80.0); Platelet Count (auto) 250 10^3/uL (140-450); Red Blood Cells 3.14 10^6/uL (4.5-5.90); Red Cell Distribution Width 16.5 % (11.8-14.3); White Blood Cell 5.6 10^3/uL (4.4-10.8)
[2020-09-02 12:29] LABS: Albumin 2.6 g/dL (3.4-5.0); Calcium 8.8 mg/dL (8.5-10.1); Magnesium 2.5 mg/dL (1.6-2.6); Potassium 4.1 mmol/L (3.5-5.1)
[2020-09-02 12:33] LABS: BUN/Creatinine Ratio 21.4; Bilirubin, Total 0.7 mg/dL (0.2-1.0); Total Protein 7.1 g/dL (6.4-8.2)
== END | disposition home or self-care (01) ==
LOC: CHF HDHVI 09:17
PROVIDERS: ATTEND Internal Medicine Cardiovascular Disease
DX: I13.0 Hypertensive heart and chronic kidney disease with heart failure and stage 1 through stage 4 chronic kidney disease, or unspecified chronic kidney disease (principal); E11.22 Type 2 diabetes mellitus with diabetic chronic kidney disease; I50.23 Acute on chronic systolic (congestive) heart failure; N18.9 Chronic kidney disease, unspecified; M79.672 Pain in left foot; M79.89 Other specified soft tissue disorders; I25.10 Atherosclerotic heart disease of native coronary artery without angina pectoris; J43.9 Emphysema, unspecified; I48.91 Unspecified atrial fibrillation; I25.2 Old myocardial infarction; K21.9 Gastro-esophageal reflux disease without esophagitis; E03.9 Hypothyroidism, unspecified; E78.00 Pure hypercholesterolemia, unspecified; Z87.891 Personal history of nicotine dependence; Z95.810 Presence of automatic (implantable) cardiac defibrillator; Z79.01 Long term (current) use of anticoagulants; Z79.891 Long term (current) use of opiate analgesic; Z90.49 Acquired absence of other specified parts of digestive tract
CPT/HCPCS: 36415; 73650; 80053; 83735; 83880; 85025; 85610; 96372; 96374; G0463; J1940; J3420

== ENCOUNTER → 2020-09-07 | Outpatient (CLI) | payer MEDICARE ==
[2020-09-07] VITALS (11 sets, daily range): BP systolic 126–149; BP diastolic 56–80
[~2020-09-07] MED LIST changes: -CYANOCOBALAMIN (B-12) 1000 MCG/1 ML VIAL IM ONE; -CYANOCOBALAMIN (B-12) 1000 MCG/1 ML VIAL ONE; +FUROSEMIDE 100 MG/10ML VIAL IV ONE; -FUROSEMIDE 40 MG/4 ML VIAL IV ONE; +MILRINONE 20MG/100ML 100 ML IV ONE; -POTASSIUM CHL 10 Meq TABLET PO ONE; +POTASSIUM EFFERVESENT TAB 25 MEQ ONE; +POTASSIUM EFFERVESENT TAB 25 MEQ PO ONE
[2020-09-07 10:03] LABS: Basophils # (auto) 0.1 10 ^3/uL (0-0.2); Eosinophils # (auto) 0.1 10 ^3/uL (0-0.8); Eosinophils % (auto) 1.2 % (0.0-7.0); Hematocrit 27.8 % (41.0-53.0); Hemoglobin 9.1 g/dL (13.5-17.5); Lymphocytes # (auto) 0.3 10 ^3/uL (0.4-5.4); Lymphocytes % (auto) 5.1 % (10.0-50.0); Mean Corpuscular Hemoglobin 29.2 pg (28.0-32.0); Mean Corpuscular Hgb Conc. 32.6 g/dL (32.0-36.0); Mean Corpuscular Volume 89.5 fL (80.0-100.0); Monocytes # (auto) 0.3 10 ^3/uL (0-1.3); Monocytes % (auto) 5.4 % (0.0-12.0); Neutrophils # (auto) 5.4 10 ^3/uL (1.6-8.6); Neutrophils % (auto) 87.3 % (37.0-80.0); Nucleated Red Blood Cells % 0.2 %; Platelet Count (auto) 264 10^3/uL (140-450); Red Blood Cells 3.11 10^6/uL (4.5-5.90); White Blood Cell 6.2 10^3/uL (4.4-10.8)
[2020-09-07 10:16] LABS: Albumin 2.7 g/dL (3.4-5.0); Calcium 8.7 mg/dL (8.5-10.1); Potassium 4.2 mmol/L (3.5-5.1)
[2020-09-07 10:19] LABS: BUN/Creatinine Ratio 23.9; Bilirubin, Total 0.7 mg/dL (0.2-1.0); Total Protein 7.2 g/dL (6.4-8.2)
== END | disposition home or self-care (01) ==
LOC: CHF HDHVI 08:44
PROVIDERS: ATTEND Internal Medicine Cardiovascular Disease
DX: I13.0 Hypertensive heart and chronic kidney disease with heart failure and stage 1 through stage 4 chronic kidney disease, or unspecified chronic kidney disease (principal); E11.22 Type 2 diabetes mellitus with diabetic chronic kidney disease; I50.23 Acute on chronic systolic (congestive) heart failure; N18.9 Chronic kidney disease, unspecified; I25.10 Atherosclerotic heart disease of native coronary artery without angina pectoris; J43.9 Emphysema, unspecified; K21.9 Gastro-esophageal reflux disease without esophagitis; E03.9 Hypothyroidism, unspecified; I25.2 Old myocardial infarction; E78.00 Pure hypercholesterolemia, unspecified; I48.91 Unspecified atrial fibrillation; Z79.01 Long term (current) use of anticoagulants; Z79.891 Long term (current) use of opiate analgesic; Z87.891 Personal history of nicotine dependence; Z95.810 Presence of automatic (implantable) cardiac defibrillator; Z90.49 Acquired absence of other specified parts of digestive tract; Z79.899 Other long term (current) drug therapy
CPT/HCPCS: 36415; 80053; 83880; 85025; 85610; 96365; 96366; 96375; G0463; J1940; J2260

== ENCOUNTER 2020-09-21 15:47 | Inpatient (IN) | payer MEDICARE ==
[~2020-09-21] VITALS: Ht 180.3 cm; Wt 63.4 kg
[~2020-09-21 15:47] MED LIST changes: -FUROSEMIDE 100 MG/10ML VIAL IV ONE; -FUROSEMIDE 40 MG/4 ML VIAL ONE; -MILRINONE 20MG/100ML 100 ML IV ONE; -POTASSIUM EFFERVESENT TAB 25 MEQ ONE; -POTASSIUM EFFERVESENT TAB 25 MEQ PO ONE
[2020-09-21] MEDS ORDERED: methylPREDNISolone SOD SUCC 125 MG/2 ML VL IV ONE (16:00)
[2020-09-21 16:56] LABS: Basophils # (auto) 0.1 10 ^3/uL (0-0.2); Basophils % (auto) 0.8 % (0.0-2.0); Eosinophils # (auto) 0 10 ^3/uL (0-0.8); Eosinophils % (auto) 0.5 % (0.0-7.0); Hematocrit 31.1 % (41.0-53.0); Hemoglobin 10.2 g/dL (13.5-17.5); Lymphocytes # (auto) 0.2 10 ^3/uL (0.4-5.4); Lymphocytes % (auto) 2.6 % (10.0-50.0); Mean Corpuscular Hemoglobin 29.8 pg (28.0-32.0); Mean Corpuscular Hgb Conc. 32.7 g/dL (32.0-36.0); Mean Corpuscular Volume 91.3 fL (80.0-100.0); Monocytes # (auto) 0.4 10 ^3/uL (0-1.3); Monocytes % (auto) 4.4 % (0.0-12.0); Neutrophils # (auto) 7.4 10 ^3/uL (1.6-8.6); Neutrophils % (auto) 91.7 % (37.0-80.0); Platelet Count (auto) 233 10^3/uL (140-450); Red Blood Cells 3.41 10^6/uL (4.5-5.90); Red Cell Distribution Width 17.5 % (11.8-14.3); White Blood Cell 8.1 10^3/uL (4.4-10.8)
[2020-09-21 17:08] LABS: Albumin 2.7 g/dL (3.4-5.0); Calcium 8.9 mg/dL (8.5-10.1)
[2020-09-21 17:16] LABS: BUN/Creatinine Ratio 20.8; CRP High Sensitivity 1.95 mg/dL (< 0.3)
[2020-09-21] MEDS ORDERED: NITROGLYCERIN 0.4 MG SL TAB SL PRN (23:00)
[2020-09-21] MEDS ORDERED: MORPHINE SULF INJ 2 MG/ML SYRINGE 1ML IV PRN (23:00)
[2020-09-21] MEDS ORDERED: FUROSEMIDE INJECTION 100 MG in SODIUM CHL 0.9% 100 ML IV SCH (23:00)
[2020-09-21] MEDS ORDERED: FUROSEMIDE INJECTION 10 ML ONE (23:41)
[2020-09-21] MEDS: FUROSEMIDE INJECTION 100 MG in SODIUM CHL 0.9% 100 ML IV SCH (23:56)
[2020-09-21] MEDS: DOBUTamine 1000MCG/ML 250 ML IV SCH (23:58)
[2020-09-22 06:37] LABS: Calcium 6.9 mg/dL (8.5-10.1); Potassium 3.9 mmol/L (3.5-5.1)
[2020-09-22 06:39] LABS: BUN/Creatinine Ratio 25.6
[2020-09-22 09:00] VITALS: BP 119/68
[2020-09-22 09:11] LABS: INR 1.26 (0.9-1.15)
[2020-09-22] MEDS: CARVEDILOL 3.125 MG TAB PO SCH ×2 (10:00→21:52)
[2020-09-22] MEDS ORDERED: POTASSIUM CHL 20 Meq TABLET PO SCH (10:00)
[2020-09-22] MEDS: CLOPIDOGREL BISULFATE 75 MG TAB PO SCH (10:00)
[2020-09-22] MEDS: DIGOXIN 0.125 MG TAB PO SCH (10:00)
[2020-09-22] MEDS ORDERED: LEVOTAB51 PO (10:09)
[2020-09-22] MEDS ORDERED: WARF1TAB36 PO (10:09)
[2020-09-22] MEDS ORDERED: POTASSIUM EFFERVESENT TAB 25 MEQ PO ONE (10:15)
[2020-09-22 13:00] VITALS: BP 94/60
[2020-09-22 17:00] VITALS: BP 121/82
[2020-09-22] MEDS: FUROSEMIDE INJECTION 100 MG in SODIUM CHL 0.9% 100 ML IV SCH (17:41)
[2020-09-22] MEDS: WARFARIN SODIUM 5 MG TAB PO SCH (17:41)
[2020-09-22 20:00] VITALS: BP 117/72
[2020-09-22] MEDS: POTASSIUM EFFERVESENT TAB 25 MEQ PO SCH (21:53)
[2020-09-22 22:00] VITALS: BP 177/72
[2020-09-23] MEDS: FUROSEMIDE INJECTION 100 MG in SODIUM CHL 0.9% 100 ML IV SCH ×3 (04:20→16:56)
[2020-09-23 05:00] VITALS: BP 113/58
[2020-09-23 06:34] LABS: Calcium 8.3 mg/dL (8.5-10.1); Potassium 4.5 mmol/L (3.5-5.1)
[2020-09-23 06:41] LABS: INR 1.43 (0.9-1.15)
[2020-09-23 08:00] VITALS: BP 109/59
[2020-09-23] MEDS: DOBUTamine 1000MCG/ML 250 ML IV SCH (08:37)
[2020-09-23 09:00] VITALS: BP 109/59
[2020-09-23] MEDS: DIGOXIN 0.125 MG TAB PO SCH (10:09)
[2020-09-23] MEDS: POTASSIUM EFFERVESENT TAB 25 MEQ PO SCH ×2 (10:10→22:20)
[2020-09-23] MEDS: CLOPIDOGREL BISULFATE 75 MG TAB PO SCH (10:10)
[2020-09-23] MEDS: CARVEDILOL 3.125 MG TAB PO SCH ×2 (10:14→22:19)
[2020-09-23 13:40] VITALS: BP 97/63
[2020-09-23] MEDS: WARFARIN SODIUM 5 MG TAB PO SCH (16:57)
[2020-09-23 17:00] VITALS: BP 131/82
[2020-09-23 22:00] VITALS: BP 99/54
[2020-09-23] MEDS ORDERED: SACU1TAB7 PO (22:22)
[2020-09-24] VITALS (8 sets, daily range): BP systolic 101–120; BP diastolic 53–84
[2020-09-24] MEDS: FUROSEMIDE INJECTION 100 MG in SODIUM CHL 0.9% 100 ML IV SCH ×3 (02:55→21:41)
[2020-09-24 07:09] LABS: BUN/Creatinine Ratio 24.6; Blood Urea Nitrogen 28 mg/dL (7-18); Calcium 8.4 mg/dL (8.5-10.1); GFR African American 79 mL/min; GFR Non-African American 66 mL/min; Potassium 4.3 mmol/L (3.5-5.1)
[2020-09-24 07:17] LABS: INR 1.38 (0.9-1.15); Partial Thromboplastin Time 34.7 sec (23.0-31.2)
[2020-09-24 07:39] LABS: Sodium 138 mmol/L (136-145)
[2020-09-24 07:40] LABS: Chloride 85 mmol/L (98-107); Glucose 97 mg/dL (74-106)
[2020-09-24 07:43] LABS: Anion Gap 7.99999 (5-15)
[2020-09-24 07:44] LABS: Carbon Dioxide > 45 mmol/L (21-32)
[2020-09-24] MEDS: DIGOXIN 0.125 MG TAB PO SCH (09:16)
[2020-09-24] MEDS: CLOPIDOGREL BISULFATE 75 MG TAB PO SCH (09:16)
[2020-09-24] MEDS: CARVEDILOL 3.125 MG TAB PO SCH ×2 (09:17→22:34)
[2020-09-24] MEDS: POTASSIUM EFFERVESENT TAB 25 MEQ PO SCH ×2 (09:17→22:33)
[2020-09-24 10:25] LABS: Basophils # (auto) 0 10 ^3/uL (0-0.2); Eosinophils # (auto) 0 10 ^3/uL (0-0.8); Hemoglobin 9.4 g/dL (13.5-17.5); Lymphocytes # (auto) 0.2 10 ^3/uL (0.4-5.4); Monocytes # (auto) 0.2 10 ^3/uL (0-1.3); Nucleated Red Blood Cells % 0.1 %; Red Blood Cells 3.23 10^6/uL (4.5-5.90)
[2020-09-24 10:28] LABS: Basophils % (auto) 0.1 % (0.0-2.0); Eosinophils % (auto) 0.4 % (0.0-7.0); Hematocrit 29.2 % (41.0-53.0); Lymphocytes % (auto) 4.4 % (10.0-50.0); Mean Corpuscular Volume 90.5 fL (80.0-100.0); Monocytes % (auto) 4.8 % (0.0-12.0); Neutrophils # (auto) 4.3 10 ^3/uL (1.6-8.6); Neutrophils % (auto) 90.3 % (37.0-80.0); Red Cell Distribution Width 16.8 % (11.8-14.3); White Blood Cell 4.8 10^3/uL (4.4-10.8)
[2020-09-24 11:04] LABS: Platelet Count (auto) 18 10^3/uL (140-450)
[2020-09-24] MEDS: WARFARIN SODIUM 5 MG TAB PO SCH (17:00)
[2020-09-24] MEDS: DOBUTamine 1000MCG/ML 250 ML IV SCH (21:41)
[2020-09-25 05:00] VITALS: BP 146/82
[2020-09-25 05:10] LABS: Basophils # (auto) 0 10 ^3/uL (0-0.2); Basophils % (auto) 0.2 % (0.0-2.0); Eosinophils # (auto) 0 10 ^3/uL (0-0.8); Eosinophils % (auto) 0.4 % (0.0-7.0); Hematocrit 28.3 % (41.0-53.0); Hemoglobin 9.4 g/dL (13.5-17.5); Lymphocytes # (auto) 0.3 10 ^3/uL (0.4-5.4); Mean Corpuscular Hemoglobin 29.7 pg (28.0-32.0); Mean Corpuscular Hgb Conc. 33.3 g/dL (32.0-36.0); Mean Corpuscular Volume 89.3 fL (80.0-100.0); Monocytes # (auto) 0.2 10 ^3/uL (0-1.3); Monocytes % (auto) 5.4 % (0.0-12.0); Neutrophils # (auto) 3.2 10 ^3/uL (1.6-8.6); Red Blood Cells 3.17 10^6/uL (4.5-5.90); White Blood Cell 3.7 10^3/uL (4.4-10.8)
[2020-09-25 05:26] LABS: BUN/Creatinine Ratio 25.3; Calcium 8.7 mg/dL (8.5-10.1); Potassium 4.2 mmol/L (3.5-5.1)
[2020-09-25 05:29] LABS: INR 1.55 (0.9-1.15); Partial Thromboplastin Time 35.9 sec (23.0-31.2)
[2020-09-25 06:00] LABS: Platelet Count (auto) 16 10^3/uL (140-450)
[2020-09-25 08:00] VITALS: BP 151/74
[2020-09-25] MEDS: FUROSEMIDE INJECTION 100 MG in SODIUM CHL 0.9% 100 ML IV SCH ×2 (08:15→17:44)
[2020-09-25] MEDS: POTASSIUM EFFERVESENT TAB 25 MEQ PO SCH ×2 (08:42→22:14)
[2020-09-25] MEDS: DIGOXIN 0.125 MG TAB PO SCH (08:43)
[2020-09-25] MEDS: CARVEDILOL 3.125 MG TAB PO SCH ×2 (08:43→22:16)
[2020-09-25 08:45] VITALS: BP 151/74
[2020-09-25 12:41] VITALS: BP 126/71
[2020-09-25 16:42] VITALS: BP 136/70
[2020-09-25 22:00] VITALS: BP 157/82
[2020-09-26] MEDS: FUROSEMIDE INJECTION 100 MG in SODIUM CHL 0.9% 100 ML IV SCH ×2 (02:36→14:15)
[2020-09-26] MEDS: DOBUTamine 1000MCG/ML 250 ML IV SCH (02:36)
[2020-09-26 05:00] VITALS: BP 115/83
[2020-09-26 06:51] LABS: Potassium 4.5 mmol/L (3.5-5.1)
[2020-09-26 07:00] LABS: Calcium 8.4 mg/dL (8.5-10.1)
[2020-09-26 09:00] VITALS: BP 101/57
[2020-09-26] MEDS: CARVEDILOL 3.125 MG TAB PO SCH ×2 (10:00→22:26)
[2020-09-26] MEDS: DIGOXIN 0.125 MG TAB PO SCH (10:52)
[2020-09-26] MEDS: POTASSIUM EFFERVESENT TAB 25 MEQ PO SCH ×2 (10:52→22:26)
[2020-09-26 13:00] VITALS: BP 95/53
[2020-09-26 17:00] VITALS: BP 137/78
[2020-09-26 22:13] VITALS: BP 122/72
[2020-09-27] MEDS: FUROSEMIDE INJECTION 100 MG in SODIUM CHL 0.9% 100 ML IV SCH ×3 (00:15→20:21)
[2020-09-27 05:21] VITALS: BP 126/71
[2020-09-27] MEDS: DOBUTamine 1000MCG/ML 250 ML IV SCH ×2 (06:58→07:22)
[2020-09-27 08:40] VITALS: BP 134/68
[2020-09-27] MEDS: DIGOXIN 0.125 MG TAB PO SCH (10:36)
[2020-09-27] MEDS: CARVEDILOL 3.125 MG TAB PO SCH ×3 (10:37→22:16)
[2020-09-27] MEDS: POTASSIUM EFFERVESENT TAB 25 MEQ PO SCH ×2 (10:38→22:07)
[2020-09-27 12:31] VITALS: BP 112/59
[2020-09-27] MEDS ORDERED: acetaZOLAMIDE SODIUM 500 MG VL IV ONE (13:00)
[2020-09-27 17:09] VITALS: BP 112/82
[2020-09-27 22:00] VITALS: BP 113/60
[2020-09-28 05:20] LABS: Basophils # (auto) 0 10 ^3/uL (0-0.2); Eosinophils # (auto) 0 10 ^3/uL (0-0.8); Eosinophils % (auto) 0.3 % (0.0-7.0); Hemoglobin 9.8 g/dL (13.5-17.5); Lymphocytes % (auto) 7.6 % (10.0-50.0); Monocytes # (auto) 0.2 10 ^3/uL (0-1.3); Neutrophils # (auto) 2.8 10 ^3/uL (1.6-8.6); Red Blood Cells 3.36 10^6/uL (4.5-5.90); White Blood Cell 3.3 10^3/uL (4.4-10.8)
[2020-09-28 05:22] LABS: Basophils % (auto) 0.1 % (0.0-2.0); Hematocrit 29.9 % (41.0-53.0); Lymphocytes # (auto) 0.3 10 ^3/uL (0.4-5.4); Mean Corpuscular Hemoglobin 29.2 pg (28.0-32.0); Mean Corpuscular Hgb Conc. 32.8 g/dL (32.0-36.0); Mean Corpuscular Volume 88.9 fL (80.0-100.0); Monocytes % (auto) 6.2 % (0.0-12.0); Neutrophils % (auto) 85.8 % (37.0-80.0); Nucleated Red Blood Cells % 0.2 %; Red Cell Distribution Width 17.2 % (11.8-14.3)
[2020-09-28 05:41] LABS: Albumin 2.7 g/dL (3.4-5.0); Calcium 8.5 mg/dL (8.5-10.1); Potassium 3.9 mmol/L (3.5-5.1)
[2020-09-28 05:44] LABS: Bilirubin, Total 0.8 mg/dL (0.2-1.0); Total Protein 6.8 g/dL (6.4-8.2)
[2020-09-28 06:00] VITALS: BP 95/65
[2020-09-28] MEDS: FUROSEMIDE INJECTION 100 MG in SODIUM CHL 0.9% 100 ML IV SCH ×2 (06:12→17:12)
[2020-09-28 06:21] LABS: Platelet Count (auto) 12 10^3/uL (140-450)
[2020-09-28] MEDS ORDERED: ARMODAFINIL 150 MG PO SCH (07:00)
[2020-09-28 09:00] VITALS: BP 98/52
[2020-09-28] MEDS: DIGOXIN 0.125 MG TAB PO SCH (10:15)
[2020-09-28] MEDS: POTASSIUM EFFERVESENT TAB 25 MEQ PO SCH ×2 (10:15→23:21)
[2020-09-28] MEDS: ARMODAFINIL 150 MG TAB PO SCH (11:34)
[2020-09-28 13:00] VITALS: BP 99/46
[2020-09-28] MEDS: HYDROcodone-ACET 5/325MG TAB PO PRN (14:37)
[2020-09-28] MEDS: DOBUTamine 1000MCG/ML 250 ML IV SCH (16:32)
[2020-09-28 17:00] VITALS: BP 131/74
[2020-09-28 20:00] VITALS: BP 99/46
[2020-09-28 22:00] VITALS: BP 96/66
[2020-09-28] MEDS: CARVEDILOL 3.125 MG TAB PO SCH (23:23)
[2020-09-29] MEDS: FUROSEMIDE INJECTION 100 MG in SODIUM CHL 0.9% 100 ML IV SCH ×2 (02:15→12:15)
[2020-09-29 05:00] VITALS: BP 109/65
[2020-09-29 09:00] VITALS: BP 90/50
[2020-09-29] MEDS: CARVEDILOL 3.125 MG TAB PO SCH ×2 (09:19→23:23)
[2020-09-29] MEDS: POTASSIUM EFFERVESENT TAB 25 MEQ PO SCH ×2 (09:20→23:24)
[2020-09-29] MEDS: DIGOXIN 0.125 MG TAB PO SCH (09:20)
[2020-09-29] MEDS: ARMODAFINIL 150 MG TAB PO SCH (09:50)
[2020-09-29] MEDS: HYDROcodone-ACET 5/325MG TAB PO PRN (09:51)
[2020-09-29 13:00] VITALS: BP 74/42
[2020-09-29 17:00] VITALS: BP 99/53
[2020-09-29 22:00] VITALS: BP 122/51
[2020-09-30 05:00] VITALS: BP 109/52
[2020-09-30 09:00] VITALS: BP 138/77
[2020-09-30] MEDS: POTASSIUM EFFERVESENT TAB 25 MEQ PO SCH ×2 (09:36→21:48)
[2020-09-30] MEDS: CARVEDILOL 3.125 MG TAB PO SCH ×2 (09:36→21:48)
[2020-09-30] MEDS: DIGOXIN 0.125 MG TAB PO SCH (09:36)
[2020-09-30] MEDS: ARMODAFINIL 150 MG TAB PO SCH (09:36)
[2020-09-30 13:00] VITALS: BP 121/57
[2020-09-30] MEDS: HYDROcodone-ACET 5/325MG TAB PO PRN (13:25)
[2020-09-30] MEDS ORDERED: acetaZOLAMIDE SODIUM 500 MG VL IV ONE (16:00)
[2020-09-30 16:40] VITALS: BP 143/58
[2020-09-30 17:31] LABS: Albumin 2.7 g/dL (3.4-5.0); Calcium 8.7 mg/dL (8.5-10.1); Potassium 4.1 mmol/L (3.5-5.1)
[2020-09-30 17:34] LABS: BUN/Creatinine Ratio 28.2; Basophils # (auto) 0 10 ^3/uL (0-0.2); Bilirubin, Total 0.7 mg/dL (0.2-1.0); Eosinophils # (auto) 0 10 ^3/uL (0-0.8); Hemoglobin 9.8 g/dL (13.5-17.5); Lymphocytes # (auto) 0.3 10 ^3/uL (0.4-5.4); Monocytes # (auto) 0.2 10 ^3/uL (0-1.3)
[2020-09-30 17:37] LABS: Basophils % (auto) 0.1 % (0.0-2.0); Eosinophils % (auto) 0.2 % (0.0-7.0); Hematocrit 29.5 % (41.0-53.0); Lymphocytes % (auto) 7.7 % (10.0-50.0); Mean Corpuscular Hemoglobin 29.3 pg (28.0-32.0); Mean Corpuscular Hgb Conc. 33.4 g/dL (32.0-36.0); Mean Corpuscular Volume 87.7 fL (80.0-100.0); Monocytes % (auto) 5.6 % (0.0-12.0); Neutrophils # (auto) 3.2 10 ^3/uL (1.6-8.6); Neutrophils % (auto) 86.4 % (37.0-80.0); Nucleated Red Blood Cells % 0.1 %; Red Blood Cells 3.36 10^6/uL (4.5-5.90); Red Cell Distribution Width 16.7 % (11.8-14.3); White Blood Cell 3.7 10^3/uL (4.4-10.8)
[2020-09-30 17:49] LABS: Platelet Count (auto) 11 10^3/uL (140-450)
[2020-09-30] MEDS: Ensure Enlive Strawberry 8oz Bottle PO SCH (18:25)
[2020-09-30 22:00] VITALS: BP 124/67
[2020-10-01 05:00] VITALS: BP 136/96
[2020-10-01 09:00] VITALS: BP 112/61
[2020-10-01] MEDS: Ensure Enlive Strawberry 8oz Bottle PO SCH ×3 (09:00→17:57)
[2020-10-01] MEDS: ARMODAFINIL 150 MG TAB PO SCH (09:28)
[2020-10-01] MEDS: POTASSIUM EFFERVESENT TAB 25 MEQ PO SCH ×2 (09:30→23:27)
[2020-10-01] MEDS: DIGOXIN 0.125 MG TAB PO SCH (09:31)
[2020-10-01] MEDS: CARVEDILOL 3.125 MG TAB PO SCH ×2 (09:47→23:11)
[2020-10-01] MEDS: HYDROcodone-ACET 5/325MG TAB PO PRN (10:09)
[2020-10-01] MEDS: DOBUTamine 1000MCG/ML 250 ML IV SCH (10:45)
[2020-10-01 12:48] VITALS: BP 113/64
[2020-10-01 16:43] VITALS: BP 131/71
[2020-10-01 22:00] VITALS: BP 124/69
[2020-10-02 05:00] VITALS: BP 110/58
[2020-10-02 09:00] VITALS: BP 93/51
[2020-10-02] MEDS: CARVEDILOL 3.125 MG TAB PO SCH ×2 (10:00→22:00)
[2020-10-02] MEDS: POTASSIUM EFFERVESENT TAB 25 MEQ PO SCH ×2 (10:35→22:58)
[2020-10-02] MEDS: ARMODAFINIL 150 MG TAB PO SCH (10:35)
[2020-10-02] MEDS: Ensure Enlive Strawberry 8oz Bottle PO SCH ×3 (10:35→18:00)
[2020-10-02] MEDS: DIGOXIN 0.125 MG TAB PO SCH (10:36)
[2020-10-02 13:00] VITALS: BP 108/66
[2020-10-02] MEDS: HYDROcodone-ACET 5/325MG TAB PO PRN ×2 (13:47→20:40)
[2020-10-02] MEDS: DOBUTamine 1000MCG/ML 250 ML IV SCH (14:44)
[2020-10-02 17:00] VITALS: BP 99/53
[2020-10-02 21:45] VITALS: BP 87/46
[2020-10-03 05:00] VITALS: BP 105/57
[2020-10-03 09:00] VITALS: BP 125/58
[2020-10-03] MEDS: Ensure Enlive Strawberry 8oz Bottle PO SCH ×3 (09:12→17:16)
[2020-10-03] MEDS: ARMODAFINIL 150 MG TAB PO SCH (09:13)
[2020-10-03] MEDS: CARVEDILOL 3.125 MG TAB PO SCH ×2 (09:13→23:15)
[2020-10-03] MEDS: DIGOXIN 0.125 MG TAB PO SCH (09:15)
[2020-10-03] MEDS: HYDROcodone-ACET 5/325MG TAB PO PRN (09:15)
[2020-10-03] MEDS: POTASSIUM EFFERVESENT TAB 25 MEQ PO SCH ×2 (09:16→23:15)
[2020-10-03] MEDS: DOBUTamine 1000MCG/ML 250 ML IV SCH (12:50)
[2020-10-03 12:51] VITALS: BP 99/56
[2020-10-03 17:00] VITALS: BP 107/48
[2020-10-03 21:34] VITALS: BP 141/73
[2020-10-04] MEDS: HYDROcodone-ACET 5/325MG TAB PO PRN ×2 (00:44→21:51)
[2020-10-04 05:19] VITALS: BP 106/52
[2020-10-04 08:00] VITALS: BP 107/49
[2020-10-04] MEDS: Ensure Enlive Strawberry 8oz Bottle PO SCH ×3 (08:00→18:00)
[2020-10-04 09:00] VITALS: BP 107/49
[2020-10-04] MEDS: ARMODAFINIL 150 MG TAB PO SCH (10:12)
[2020-10-04] MEDS: DOBUTamine 1000MCG/ML 250 ML IV SCH (10:13)
[2020-10-04] MEDS: CARVEDILOL 3.125 MG TAB PO SCH ×2 (10:13→21:50)
[2020-10-04] MEDS: POTASSIUM EFFERVESENT TAB 25 MEQ PO SCH (10:14)
[2020-10-04] MEDS: DIGOXIN 0.125 MG TAB PO SCH (10:14)
[2020-10-04 12:41] VITALS: BP 103/57
[2020-10-04 16:41] VITALS: BP 97/42
[2020-10-04 19:06] LABS: Basophils # (auto) 0 10 ^3/uL (0-0.2); Basophils % (auto) 0.1 % (0.0-2.0); Eosinophils # (auto) 0 10 ^3/uL (0-0.8); Eosinophils % (auto) 0.1 % (0.0-7.0); Hemoglobin 8.2 g/dL (13.5-17.5); Lymphocytes # (auto) 0.2 10 ^3/uL (0.4-5.4); Monocytes # (auto) 0.1 10 ^3/uL (0-1.3); Red Cell Distribution Width 16.9 % (11.8-14.3)
[2020-10-04 19:07] LABS: Hematocrit 24.9 % (41.0-53.0); Lymphocytes % (auto) 1.6 % (10.0-50.0); Mean Corpuscular Hemoglobin 29.1 pg (28.0-32.0); Mean Corpuscular Hgb Conc. 32.9 g/dL (32.0-36.0); Mean Corpuscular Volume 88.5 fL (80.0-100.0); Monocytes % (auto) 1.2 % (0.0-12.0); Neutrophils # (auto) 11.7 10 ^3/uL (1.6-8.6); Red Blood Cells 2.81 10^6/uL (4.5-5.90)
[2020-10-04 19:31] LABS: Albumin 2.6 g/dL (3.4-5.0); BUN/Creatinine Ratio 37.7; Calcium 8.3 mg/dL (8.5-10.1); Platelet Count (auto) 10 10^3/uL (140-450); Potassium 4.4 mmol/L (3.5-5.1)
[2020-10-04 19:33] LABS: Bilirubin, Total 0.8 mg/dL (0.2-1.0); Total Protein 6.8 g/dL (6.4-8.2)
[2020-10-05 05:00] VITALS: BP 108/58
[2020-10-05 08:00] VITALS: BP 124/69
[2020-10-05] MEDS: Ensure Enlive Strawberry 8oz Bottle PO SCH ×3 (08:00→18:00)
[2020-10-05 08:46] VITALS: BP 137/67
[2020-10-05] MEDS: DIGOXIN 0.125 MG TAB PO SCH (11:32)
[2020-10-05] MEDS: CARVEDILOL 3.125 MG TAB PO SCH ×2 (11:32→21:08)
[2020-10-05] MEDS: ARMODAFINIL 150 MG TAB PO SCH (11:32)
[2020-10-05 13:08] VITALS: BP 108/54
[2020-10-05 16:45] VITALS: BP 99/48
[2020-10-05] MEDS: DOBUTamine 1000MCG/ML 250 ML IV SCH (19:49)
[2020-10-05] MEDS: HYDROcodone-ACET 5/325MG TAB PO PRN (21:08)
[2020-10-05 22:00] VITALS: BP 122/71
[2020-10-06 05:00] VITALS: BP 123/60
[2020-10-06] MEDS: Ensure Enlive Strawberry 8oz Bottle PO SCH ×3 (08:00→18:00)
[2020-10-06] MEDS: ARMODAFINIL 150 MG TAB PO SCH (08:15)
[2020-10-06 09:00] VITALS: BP 106/56
[2020-10-06] MEDS: CARVEDILOL 3.125 MG TAB PO SCH ×2 (09:27→21:42)
[2020-10-06] MEDS: DIGOXIN 0.125 MG TAB PO SCH (09:28)
[2020-10-06 13:03] VITALS: BP 118/62
[2020-10-06 16:57] VITALS: BP 134/72
[2020-10-06] MEDS: HYDROcodone-ACET 5/325MG TAB PO PRN (19:37)
[2020-10-06] MEDS: DOBUTamine 1000MCG/ML 250 ML IV SCH (20:00)
[2020-10-06] MEDS ORDERED: SACUBITRIL-VALSARTAN 24mg/26mg TAB PO SCH (22:00)
[2020-10-06 23:06] VITALS: BP 115/63
[2020-10-07] MEDS: HYDROcodone-ACET 5/325MG TAB PO PRN (04:14)
[2020-10-07 05:29] VITALS: BP 133/58
[2020-10-07] MEDS: Ensure Enlive Strawberry 8oz Bottle PO SCH ×2 (08:00→12:00)
[2020-10-07] MEDS: ARMODAFINIL 150 MG TAB PO SCH (08:00)
[2020-10-07 08:41] VITALS: BP 93/46
[2020-10-07] MEDS: CARVEDILOL 3.125 MG TAB PO SCH (09:32)
[2020-10-07] MEDS: DIGOXIN 0.125 MG TAB PO SCH (09:33)
[2020-10-07 12:41] VITALS: BP 145/73
[2020-10-07 17:00] VITALS: BP 140/78
== END 2020-10-07 20:37 | DRG 291 ==
LOC: ER 15:47 → EDBD 15:47 → TELE 22:59 → TELE-WESTW 09-22 08:46
PROVIDERS: ADMIT Internal Medicine Cardiovascular Disease; ATTEND Internal Medicine Cardiovascular Disease
PROC: 5A09357 Assistance with Respiratory Ventilation, Less than 24 Consecutive Hours, Continuous Positive Airway Pressure (ICD-10-PCS; principal; 2020-09-24)
PROC: 5A09357 Assistance with Respiratory Ventilation, Less than 24 Consecutive Hours, Continuous Positive Airway Pressure (ICD-10-PCS; 2020-09-25)
PROC: 5A09357 Assistance with Respiratory Ventilation, Less than 24 Consecutive Hours, Continuous Positive Airway Pressure (ICD-10-PCS; 2020-09-26)
DX: I13.0 Hypertensive heart and chronic kidney disease with heart failure and stage 1 through stage 4 chronic kidney disease, or unspecified chronic kidney disease (principal); I50.23 Acute on chronic systolic (congestive) heart failure; J96.92 Respiratory failure, unspecified with hypercapnia; R64 Cachexia; E44.1 Mild protein-calorie malnutrition; Z68.1 Body mass index [BMI] 19.9 or less, adult; D68.9 Coagulation defect, unspecified; I25.5 Ischemic cardiomyopathy; I25.10 Atherosclerotic heart disease of native coronary artery without angina pectoris; E03.9 Hypothyroidism, unspecified; N18.30 Chronic kidney disease, stage 3 unspecified; J44.9 Chronic obstructive pulmonary disease, unspecified; D64.9 Anemia, unspecified; Z20.822 Contact with and (suspected) exposure to COVID-19; D69.6 Thrombocytopenia, unspecified; I25.2 Old myocardial infarction; I48.91 Unspecified atrial fibrillation; Z87.01 Personal history of pneumonia (recurrent); Z87.891 Personal history of nicotine dependence; Z95.1 Presence of aortocoronary bypass graft; Z95.810 Presence of automatic (implantable) cardiac defibrillator; Z90.49 Acquired absence of other specified parts of digestive tract
CPT/HCPCS: 36415; 36600; 71045; 71275; 80048; 80053; 82728; 82805; 83880; 84484; 85025; 85379; 85610; 85730; 86141; 87081; 87426; 93005; 96365; 96368; 97110; 97116; 97530; G0378